=== PATIENT | female | born 1950 | race Caucasian/White ===

== ENCOUNTER 2020-04-17 11:26 | Emergency (ER) | payer MEDICARE, OTHER, SELFPAY ==
--- NOTE | 2020-04-17 | XR_ITS ---
EXAMINATION: XR CHEST CLINICAL INFORMATION: Shortness of breath. COMPARISON: CT chest and chest radiograph dated 10/06/2019 TECHNIQUE: 2 views of the chest were obtained. FINDINGS: No significant abnormality is noted involving the heart, lungs, mediastinum, bony thorax or soft tissues. IMPRESSION: No acute cardiopulmonary process. Interval resolution of previously seen bilateral infiltrates.
[2020-04-17 11:48] VITALS: PULSE 68; RESP 22; O2SAT 97
[2020-04-17 12:00] VITALS: BP 124/73; PULSE 70; RESP 124; TEMP 36.8; O2SAT 95; BMI 35.4
[2020-04-17 12:16] VITALS: O2SAT 95
--- NOTE | 2020-04-17 13:03 | ED.ASTHMA ---
HPI - Asthma General Chief Complaint: Asthma Stated Complaint: asthma Time Seen by Provider: 04/17/20 12:50 Source: patient Mode of arrival: ambulatory History of Present Illness HPI Narrative: 69-year-old female with a PMHx GERD, diabetes, depression, COPD, asthma, anxiety c/o worsening shortness of breath x few weeks. Admits symptoms worse on exertion. Recently finished steroid taper 2 days ago and has been using nebs without relief. Denies cough, CP, LE edema, history of cough, abdominal pain, nausea / vomiting, recent travel, sick contacts MD complaint: asthma attack and shortness of breath Onset (ago): week(s) Severity: moderate Context: exercise Related Data Home Medications Medication Instructions Recorded Confirmed albuterol sulfate INHALATION 04/17/20 buspirone mg PO 04/17/20 cimetidine PO 04/17/20 duloxetine mg PO 04/17/20 fluticasone propionate INTRANASAL 04/17/20 [id number] INHALATION 04/17/20 [Trelegy Ellipta] gabapentin PO 04/17/20 ondansetron HCl PO 04/17/20 tizanidine mg PO 04/17/20 trazodone PO 04/17/20 Allergies Allergy/AdvReac Type Severity Reaction Status Date / Time No Known Allergies Allergy Unverified 03/30/20 16:30 [No Known Allergies*] Review of Systems Review of Systems: Yes all other systems are reviewed and are negative Constitutional: Constitutional: Reports as per HPI, Reports no additional constitutional complaints, Denies chills, Denies fatigue and Denies fever(s) Eyes: Eyes: Reports as per HPI ENT: Reports system reviewed and no additional complaints, except as documented Cardiovascular: Cardiovascular: Reports as per HPI, Denies chest pain, Reports dyspnea and Reports dyspnea on exertion Respiratory: Respiratory: Reports chest congestion, Denies cough, Reports dyspnea, Reports dyspnea on exertion and Reports wheezing Gastrointestinal: Gastrointestinal: Denies abdominal pain, Denies diarrhea, Denies nausea and Denies vomiting Endocrine: Endocrine: Denies fatigue Allergic/Immunologic: Allergic/Immunologic: Reports wheezing PMFSH Past Medical History Attestation statement: The following information was validated with the patient. Medical History Anxiety Asthma COPD (chronic obstructive pulmonary disease) Depression Diabetes mellitus, type 2 GERD (gastroesophageal reflux disease) Social History Social History Smoked in Last 30 Days: No Use of substances other than those prescribed or required for medical reasons: No Advance Directives: No Advance Directives Information Provided: Yes Physical Exam Vital Signs and I&O and Narrative: Vital Signs and I&O: Vital Signs Temp 98.2 F 04/17/20 12:00 Pulse 68 04/17/20 14:52 Resp 9 L 04/17/20 14:52 BP 132/71 04/17/20 14:52 Pulse Ox 97 04/17/20 15:50 Intake & Output 04/16/20 04/17/20 04/17/20 18:59 06:59 18:59 Intake Total 50 / 50 Balance 50 / 50 Weight 92.125 kg Intake: Intake, IV Amoun t 50 / 50 Magnesium Sulf ate/H2O 2 gm In 50 / 50 50 ml @ 50 mls /hr IV ONCE ONE Rx#:[id number] Body Mass Index 35.4 Const: General: cooperative and anxious HENMT: Head: Yes normal to inspection General nose exam: Normal external nose present Neck: Neck: Yes normal visual inspection Chest: Chest palpation & inspection: normal inspection of the chest Resp: Effort & Inspection: normal respiratory effort, able to speak in complete sentences, no audible wheezes, no cough, no respiratory distress and no stridor Auscultation: wheezes (mild) scattered wheezes and breath sounds absent (bibasilarly) Cardio: Jugular venous distension: no JVD Rhythm: regular rhythm Heart sounds: S1 normal heart sound present and S2 normal heart sound present GI: Inspection: Yes normal to inspection Palpation (GI): Soft to palpation and nontender Extrem: Left upper extremity: normal to inspection Course Course Course Narrative: -- labs unremarkable, x-ray with interval resolution of previously seen infiltrates --154-- on re-evaluation patient reports symptomatic improvement. Lungs CTA. Sating 99% on room air --1552-- patient ambulated in the ED with pulse ox maintaining saturations 96% on room air MDM - Asthma MDM Narrative Medical decision making narrative: 69-year-old female with a PMHx GERD, diabetes, depression, COPD, asthma, anxiety c/o worsening shortness of breath x few weeks. On exam VSS, NAD, nontoxic appearing. Anxious. Lungs with mild decreased breath sounds bibasilarly with scattered expiratory wheeze . Concern for asthma / COPD exacerbation vs viral syndrome. Lower concern for pneumonia or PE/ACS or CHF plan: EKG, labs, CXR, DuoNeb, Solu-Medrol, magnesium, reassess Differential Diagnosis Differential diagnosis: Likely Acute exacerbation, Pneumonia and COPD exacerbation Medical Records Attestation: I reviewed the patient's medical records. Lab Data Attestation: I reviewed the patient's lab results. Result diagrams: 04/17/20 13:57 04/17/20 13:57 Labs: Lab Results 04/17/20 04/17/20 04/17/20 Range/Units 13:57 13:57 13:57 WBC 5.1 (4.8-10.8) X10*3/uL RBC 3.54 L (4.20-5.50) X10*6/uL Hgb 11.8 L (12.0-16.0) g/dl Hct 34.2 L (37-47) % MCV 96.6 (80-98) fL MCH 33.3 H (27.0-33.0) pg MCHC 34.5 (31.0-35.0) g/dl RDW 12.3 (11.0-16.0) % Plt Count 158 L (160-400) X10*3/uL MPV 8.7 L (9.4-12.3) fL Immature Gran % (Auto) 0.4 (0.0-0.4) % Neut % (Auto) 42.6 L (45-73) % Lymph % (Auto) 37.3 (20-40) % [place] % (Auto) 10.5 (2-11) % Eos % (Auto) 8.8 H (0-4) % Baso % (Auto) 0.4 (0-2) % Neut # (Auto) 2.2 (2.0-8.3) X10*3/uL Lymph # (Auto) 1.9 (1.2-4.9) X10*3/uL [place] # (Auto) 0.5 (0.1-1.2) X10*3/uL Eos # (Auto) 0.5 H (0.0-0.4) X10*3/uL Baso # (Auto) 0.0 (0.0-0.2) X10*3/uL Abs Immat Gran (auto) 0.02 (0.00-0.03) X10*3/uL Absolute Nucleated RBC 0.000 (0.0-0.012) X10*3/uL Nucleated RBC % (auto) 0.0 (0.0-0.2) /100WBC Sodium 138 (135-145) mmol/L Potassium 4.5 (3.3-5.1) mmol/l Chloride 104 (96-108) mmol/L Carbon Dioxide 24 (22-29) mmol/L Anion Gap 15 (12-20) BUN 18 H (9-16) mg/dL Creatinine 0.78 (0.5-1.4) mg/dL Estim Creat Clear Calc 71.3 Estimated GFR > 60 Random Glucose 120 H (60-115) mg/dL Calcium 9.1 (8.4-10.2) mg/dL Troponin I High Sens < 3.5 (<3.5-17.0) ng/L B-Natriuretic Peptide 24 (<100) pg/mL Discharge Plan Discharge Clinical Impression: Asthma with acute exacerbation Patient Disposition: Home, Self-Care Instructions: Asthma (ED) Additional Instructions: your blood work and chest x-ray were improved today in the ED Prednisone as a steroid, take as prescribed In addition use your nebulizer and albuterol inhaler at home 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 If her symptoms persist/worsen, you develop constant worsening shortness of breath, chest pain, cough, or fever return to the ED Prescriptions: No Action tizanidine 2 mg tablet PO RF: 0 ondansetron HCl 4 mg tablet PO RF: 0 gabapentin 800 mg tablet PO RF: 0 trazodone 100 mg tablet PO RF: 0 cimetidine 200 mg tablet PO RF: 0 albuterol sulfate 90 mcg/actuation HFA aerosol inhaler inhalation RF: 0 fluticasone propionate 50 mcg/actuation spray,suspension intranasal RF: 0 buspirone 15 mg tablet PO RF: 0 duloxetine 60 mg capsule,delayed release(DR/EC) PO RF: 0 Trelegy Ellipta 100-62.5-25 mcg blister with device inhalation RF: 0
[2020-04-17] MEDS: Albuterol/Iprat 2.5/0.5MG 3 ML AMPUL.NEB INHALE (13:44)
[2020-04-17 14:02] LABS: MANUAL DIFF FLAG NO
[2020-04-17] MEDS: methylPREDNISolone Sod Succ/PF 125 MG/2 ML VIAL IVPUSH (14:05)
[2020-04-17] MEDS: Magnesium Sulfate/H2O 2 GM/50 ML PIGGYBACK IV (14:05)
[2020-04-17 14:06] LABS: Basophils Percent Auto 0.4 % (0-2); Eosinophils Absolute Auto 0.5 X10*3/uL (0.0-0.4); Eosinophils Percent Auto 8.8 % (0-4); Hematocrit 34.2 % (37-47); Hemoglobin 11.8 g/dl (12.0-16.0); Imm Gran Abs Auto 0.02 X10*3/uL (0.00-0.03); Imm Gran Pct Auto 0.4 % (0.0-0.4); Lymphocytes Absolute Auto 1.9 X10*3/uL (1.2-4.9); Lymphocytes Percent Auto 37.3 % (20-40); Mean Corpuscular HGB Conc 34.5 g/dl (31.0-35.0); Mean Corpuscular Hemoglobin 33.3 pg (27.0-33.0); Mean Corpuscular Volume 96.6 fL (80-98); Mean Platelet Volume 8.7 fL (9.4-12.3); Monocytes Absolute Auto 0.5 X10*3/uL (0.1-1.2); Monocytes Percent Auto 10.5 % (2-11); Neutrophils Absolute Auto 2.2 X10*3/uL (2.0-8.3); Neutrophils Percent Auto 42.6 % (45-73); Platelet Count 158 X10*3/uL (160-400); Red Blood Count 3.54 X10*6/uL (4.20-5.50); Red Cell Distribution Width 12.3 % (11.0-16.0); White Blood Count 5.1 X10*3/uL (4.8-10.8)
[2020-04-17 14:32] LABS: Anion Gap 15 (12-20); Blood Urea Nitrogen 18 mg/dL (9-16); Calcium 9.1 mg/dL (8.4-10.2); Carbon Dioxide 24 mmol/L (22-29); Chloride 104 mmol/L (96-108); Creatinine Clr Calc Pharmacy 71.3; Estimated Glomerular Filt Rate > 60; Glucose Random 120 mg/dL (60-115); Potassium 4.5 mmol/l (3.3-5.1); Sodium 138 mmol/L (135-145)
[2020-04-17 14:36] LABS: B Type Natriuretic Peptide 24 pg/mL (<100); Troponin-I High Sensitivity < 3.5 ng/L (<3.5-17.0)
[2020-04-17 14:52] VITALS: BP 132/71; PULSE 68; RESP 9; O2SAT 97
[2020-04-17 15:50] VITALS: O2SAT 97
== END 2020-04-17 16:48 | disposition home or self-care (01) ==
PROVIDERS: Physician Assistant; Emergency Provider Internal Medicine; PCP Hospitalist
DX: J45.901 Unspecified asthma with (acute) exacerbation (principal); E11.9 Type 2 diabetes mellitus without complications; F41.1 Generalized anxiety disorder; F43.0 Acute stress reaction; Z79.899 Other long term (current) drug therapy
CPT/HCPCS: 36415; 71046; 80048; 83880; 84484; 85025; 96365; 96375; 99285; J2930; J3475

== ENCOUNTER 2020-04-25 11:27 | Emergency (ER) | payer MEDICARE, OTHER, SELFPAY ==
[2020-04-25 11:31] VITALS: BP 123/64; PULSE 75; RESP 18; TEMP 36.7; O2SAT 98; BMI 35.4
--- NOTE | 2020-04-25 13:16 | XR_ITS ---
EXAMINATION: XR CHEST CLINICAL INFORMATION: Shortness of breath COMPARISON: 04/17/2020 TECHNIQUE: Two views of the chest were obtained. FINDINGS: The cardiomediastinal silhouette is within normal limits. The lungs are well expanded. There is no focal consolidation, edema, or effusion. No pneumothorax. Thoracic spine degeneration. Screw projected over the proximal left humerus. IMPRESSION: No evidence of acute cardiopulmonary process.
--- NOTE | 2020-04-25 14:20 | ED.SOB ---
HPI - SOB/Dyspnea General Chief Complaint: Dyspnea Stated Complaint: sob,asthma Time Seen by Provider: 04/25/20 13:07 Source: patient Mode of arrival: ambulatory Limitations: no limitations History of Present Illness HPI Narrative: 69-year-old female with a past medical history of GERD, diabetes, depression, COPD, asthma, anxiety here with shortness of breath for the last 2 weeks. The patient tells me she was seen here on April 17 for COPD exacerbation and was sent home with a 5 day course of steroids. She tells me she completed this and felt some improvement initially however since then she has been using her albuterol inhaler and nebulizer at home with continued shortness of breath. She tells me feels she feels short of breath with walking around with coughing. No fevers, chills, body aches. No sick contacts. No chest pain, leg pain or swelling. Patient also tells me she she has bed bugs in her apartment and feels like she needs a new place to live. She tells me because the shortness of breath she really can not clean it like she wants to. MD elicited complaint: shortness of breath Pertinent past history: COPD Onset (ago): week(s) Context: recent illness Timing: constant Severity: mild Exacerbating factors: exertion Relieving factors: rest Known history of: COPD Associated symptoms: denies other symptoms Treatment prior to arrival: none Related Data Home Medications Medication Instructions Recorded Confirmed albuterol sulfate INHALATION 04/17/20 buspirone mg PO 04/17/20 cimetidine PO 04/17/20 duloxetine mg PO 04/17/20 fluticasone propionate INTRANASAL 04/17/20 [id number] INHALATION 04/17/20 [Trelegy Ellipta] gabapentin PO 04/17/20 ondansetron HCl PO 04/17/20 tizanidine mg PO 04/17/20 trazodone PO 04/17/20 Previous Rx's Medication Instructions Recorded albuterol sulfate 2 puff INHALATION Q4-6H PRN #6.7 g 04/17/20 prednisone 40 mg PO DAILY #10 tab 04/17/20 prednisone 60 mg PO DAILY 4 Days #12 tab 04/25/20 Allergies Allergy/AdvReac Type Severity Reaction Status Date / Time No Known Allergies Allergy Unverified 03/30/20 16:30 [No Known Allergies*] Review of Systems Review of Systems: Yes all other systems are reviewed and are negative Constitutional: Constitutional: Reports no additional constitutional complaints, Denies body ache(s), Denies chills, Denies fever(s), Denies headache(s) and Denies weakness Eyes: Eyes: Reports no additional eye complaints and Denies change in vision ENT: Reports system reviewed and no additional complaints, except as documented, Denies dizziness, Denies headache(s), Denies nasal congestion, Denies nasal discharge and Denies neck pain Cardiovascular: Cardiovascular: Reports no additional cardiovascular complaints, Denies chest pain, Denies leg edema and Reports dyspnea Respiratory: Respiratory: Reports no additional respiratory complaints, Reports cough and Reports dyspnea Gastrointestinal: Gastrointestinal: Reports no additional gastrointestinal complaints, Denies abdominal pain, Denies diarrhea, Denies nausea and Denies vomiting Genitourinary: Genitourinary: Reports no additional female genitourinary complaints and Denies urinary incontinence Musculoskeletal: Musculoskeletal: Reports no additional musculoskeletal complaints, Denies back pain, Denies arthralgias, Denies joint swelling, Denies neck pain, Denies numbness and Denies tingling Integumentary/Breasts: Skin/Breast: Reports system reviewed and no additional complaints, except as docu and Denies rash Neurologic: Reports system reviewed and no additional complaints, except as documented, Denies Abnormal speech present, Denies dizziness, Denies headache(s), Denies numbness, Denies tingling and Denies weakness PMFSH Past Medical History Attestation statement: The following information was validated with the patient. Source: nursing notes reviewed Medical History Anxiety Asthma COPD (chronic obstructive pulmonary disease) Depression Diabetes mellitus, type 2 GERD (gastroesophageal reflux disease) Social History Social History Alcohol intake: current Alcohol intake frequency: holidays/special occasions only Alcohol type: wine Smoking Status: Light tobacco smoker Smoked in Last 30 Days: Yes Use of substances other than those prescribed or required for medical reasons: No Advance Directives: No Advance Directives Information Provided: Yes Physical Exam Vital Signs: Vital Signs: Vital Signs Temp Pulse Resp BP Pulse Ox 04/25/20 11:31 98.0 F 75 18 123/64 98 Body Mass Index 35.4 Const: General: cooperative, healthy appearing, comfortable and no acute distress Orientation/consciousness: patient oriented x3 Limitations: no limitations HENMT: Head: Yes normal to inspection Ears: hearing grossly normal bilaterally General nose exam: Normal external nose present Face and sinus: Yes normal facial exam Mouth: Normal oral and palatal mucosa present Throat: Yes posterior oropharynx normal Eyes: General: appearance normal, both eyes and all related structures Pupils: Equal, round and reactive pupils present Neck: Neck: Yes normal visual inspection Chest: Chest palpation & inspection: normal inspection of the chest Resp: Other: Mild expiratory wheezing. Speaking full sentences with no apparent distress. Effort & Inspection: normal respiratory effort Auscultation: clear to auscultation bilaterally Cardio: Rate: regular rate Rhythm: regular rhythm Peripheral pulses: Peripheral pulses 2+ throughout GI: Inspection: Yes normal to inspection Palpation (GI): Soft to palpation and nontender Auscultation: normal bowel sounds Back/Spine/Pelvis: Thoracic/Lumbar Spine: thoracic and lumbar spine normal to inspection Skin: General skin exam: no rashes or lesions noted Neuro: General: patient oriented x3, no focal motor deficits and normal sensation to monofilament Cranial nerves: Yes Equal, round and reactive pupils present Cognition (Neuro): normal cognition Speech: No Abnormal speech present Gait exam (Neuro): Normal gait present Motor exam (neuro): 5/5 motor strength present throughout Extrem: General: Yes normal to inspection Course Course Course Narrative: Patient here with cough/shortness of breath x several weeks with recent ED visit and initial improvement after steroid taper. no fever, productive cough, chills or body aches. On exam patient has some mild expiratory wheezing with stable vital signs and in no apparent respiratory distress. Will check x-ray. Give DuoNeb, Solu-Medrol and magnesium. Additionally, the patient is complaining of some social and living concerns. Will involve social work. 1600- chest x-ray unremarkable. Labs unremarkable. Patient feels much improved after receiving medications here. Repeat lung sounds clear throughout with stable saturations greater than 98%. Patient is comfortable going home. Social Work did get involved and will call [facility] to help her in the home. Reviewed worrisome signs and symptoms when to return to the emergency department. Comfortable discharge home. MDM - SOB/Dyspnea MDM Narrative Medical decision making narrative: Considered COPD exacerbation, viral syndrome, pneumonia 1600- Less likely pneumonia with a unremarkable chest x-ray and no leukocytosis. Viral panel negative less likely viral syndrome. Improved with steroids, magnesium and DuoNeb some more likely COPD exacerbation. No hypoxia or significant shortness of breath so patient can be discharged home. Lab Data Attestation: I reviewed the patient's lab results. Result diagrams: 04/25/20 14:30 04/25/20 14:30 Labs: Lab Results 04/25/20 04/25/20 04/25/20 Range/Units 14:28 14:30 14:30 WBC 5.6 (4.8-10.8) X10*3/uL RBC 3.67 L (4.20-5.50) X10*6/uL Hgb 12.0 (12.0-16.0) g/dl Hct 35.6 L (37-47) % MCV 97.0 (80-98) fL MCH 32.7 (27.0-33.0) pg MCHC 33.7 (31.0-35.0) g/dl RDW 12.7 (11.0-16.0) % Plt Count 159 L (160-400) X10*3/uL MPV 8.5 L (9.4-12.3) fL Immature Gran % (Auto) 0.7 H (0.0-0.4) % Neut % (Auto) 43.9 L (45-73) % Lymph % (Auto) 39.4 (20-40) % [place] % (Auto) 8.0 (2-11) % Eos % (Auto) 7.6 H (0-4) % Baso % (Auto) 0.4 (0-2) % Lymph # (Auto) 2.2 (1.2-4.9) X10*3/uL [place] # (Auto) 0.5 (0.1-1.2) X10*3/uL Eos # (Auto) 0.4 (0.0-0.4) X10*3/uL Baso # (Auto) 0.0 (0.0-0.2) X10*3/uL Abs Immat Gran (auto) 0.04 H (0.00-0.03) X10*3/uL Absolute Neuts (auto) 2.5 (2.0-8.3) X10*3/uL Absolute Nucleated RBC 0.000 (0.0-0.012) X10*3/uL Nucleated RBC % (auto) 0.0 (0.0-0.2) /100WBC Hold Blue Top SEE NOTE Sodium (135-145) mmol/L Potassium (3.3-5.1) mmol/l Chloride (96-108) mmol/L Carbon Dioxide (22-29) mmol/L Anion Gap (12-20) BUN (9-16) mg/dL Creatinine (0.5-1.4) mg/dL Estim Creat Clear Calc Estimated GFR Random Glucose (60-115) mg/dL Calcium (8.4-10.2) mg/dL Magnesium (1.6-2.6) mg/dL Troponin I High Sens (<3.5-17.0) ng/L Respiratory Panel [place] See Note Adenovirus (Rapid PCR) Not Detected (Not Detect.) B.pert (TEM-PCR) Not Detected (Not Detect.) B.parapertussis DNA PCR Not Detected (Not Detect.) C. pneumoniae DNA (PCR) Not Detected (Not Detect.) Coronavirus OC43 (PCR) Not Detected (Not Detect.) Coronavirus HKU1 (PCR) Not Detected (Not Detect.) Coronavirus 229E (PCR) Not Detected (Not Detect.) Coronavirus NL63 (PCR) Not Detected (Not Detect.) Human Metapneumovir PCR Not Detected (Not Detect.) Influenza A (RT-PCR) Not Detected (Not Detect.) Influenza B (RT-PCR) Not Detected (Not Detect.) M. pneumoniae (PCR) Not Detected (Not Detect.) Parainfluenza 1 (PCR) Not Detected (Not Detect.) Parainfluenza 2 (PCR) Not Detected (Not Detect.) Parainfluenza 3 (PCR) Not Detected (Not Detect.) Parainfluenza 4 (PCR) Not Detected (Not Detect.) RSV (PCR) Not Detected (Not Detect.) Entero/Rhino (PCR) Not Detected (Not Detect.) SARS-CoV-2 RNA (RT-PCR) Not Detected (Not Detect.) 04/25/20 04/25/20 Range/Units 14:30 14:30 WBC (4.8-10.8) X10*3/uL RBC (4.20-5.50) X10*6/uL Hgb (12.0-16.0) g/dl Hct (37-47) % MCV (80-98) fL MCH (27.0-33.0) pg MCHC (31.0-35.0) g/dl RDW (11.0-16.0) % Plt Count (160-400) X10*3/uL MPV (9.4-12.3) fL Immature Gran % (Auto) (0.0-0.4) % Neut % (Auto) (45-73) % Lymph % (Auto) (20-40) % [place] % (Auto) (2-11) % Eos % (Auto) (0-4) % Baso % (Auto) (0-2) % Lymph # (Auto) (1.2-4.9) X10*3/uL [place] # (Auto) (0.1-1.2) X10*3/uL Eos # (Auto) (0.0-0.4) X10*3/uL Baso # (Auto) (0.0-0.2) X10*3/uL Abs Immat Gran (auto) (0.00-0.03) X10*3/uL Absolute Neuts (auto) (2.0-8.3) X10*3/uL Absolute Nucleated RBC (0.0-0.012) X10*3/uL Nucleated RBC % (auto) (0.0-0.2) /100WBC Hold Blue Top Sodium 138 (135-145) mmol/L Potassium 4.1 (3.3-5.1) mmol/l Chloride 104 (96-108) mmol/L Carbon Dioxide 27 (22-29) mmol/L Anion Gap 11 L (12-20) BUN 11 (9-16) mg/dL Creatinine 0.78 (0.5-1.4) mg/dL Estim Creat Clear Calc 70.7 Estimated GFR > 60 Random Glucose 122 H (60-115) mg/dL Calcium 9.3 (8.4-10.2) mg/dL Magnesium 1.8 (1.6-2.6) mg/dL Troponin I High Sens 3.7 (<3.5-17.0) ng/L Respiratory Panel [place] Adenovirus (Rapid PCR) (Not Detect.) B.pert (TEM-PCR) (Not Detect.) B.parapertussis DNA PCR (Not Detect.) C. pneumoniae DNA (PCR) (Not Detect.) Coronavirus OC43 (PCR) (Not Detect.) Coronavirus HKU1 (PCR) (Not Detect.) Coronavirus 229E (PCR) (Not Detect.) Coronavirus NL63 (PCR) (Not Detect.) Human Metapneumovir PCR (Not Detect.) Influenza A (RT-PCR) (Not Detect.) Influenza B (RT-PCR) (Not Detect.) M. pneumoniae (PCR) (Not Detect.) Parainfluenza 1 (PCR) (Not Detect.) Parainfluenza 2 (PCR) (Not Detect.) Parainfluenza 3 (PCR) (Not Detect.) Parainfluenza 4 (PCR) (Not Detect.) RSV (PCR) (Not Detect.) Entero/Rhino (PCR) (Not Detect.) SARS-CoV-2 RNA (RT-PCR) (Not Detect.) Imaging Data chest xray: Attestation: I personally reviewed and interpreted this imaging study as follows: My impression: unremarkable Radiologist's impression: EXAMINATION: XR CHEST CLINICAL INFORMATION: Shortness of breath COMPARISON: 04/17/2020 TECHNIQUE: Two views of the chest were obtained. FINDINGS: The cardiomediastinal silhouette is within normal limits. The lungs are well expanded. There is no focal consolidation, edema, or effusion. No pneumothorax. Thoracic spine degeneration. Screw projected over the proximal left humerus. IMPRESSION: No evidence of acute cardiopulmonary process. Discharge Plan Discharge Clinical Impression: Asthma with exacerbation Patient Disposition: Home, Self-Care Instructions: Asthma (ED) Additional Instructions: start prednisone tomorrow Continue your asthma medications Prescriptions: New prednisone 20 mg tablet 60 mg PO DAILY 4 Days Qty: 12 RF: 0 No Action tizanidine 2 mg tablet PO RF: 0 ondansetron HCl 4 mg tablet PO RF: 0 gabapentin 800 mg tablet PO RF: 0 trazodone 100 mg tablet PO RF: 0 cimetidine 200 mg tablet PO RF: 0 albuterol sulfate 90 mcg/actuation HFA aerosol inhaler inhalation RF: 0 fluticasone propionate 50 mcg/actuation spray,suspension intranasal RF: 0 buspirone 15 mg tablet PO RF: 0 duloxetine 60 mg capsule,delayed release(DR/EC) PO RF: 0 Trelegy Ellipta 100-62.5-25 mcg blister with device inhalation RF: 0 albuterol sulfate 90 mcg/actuation HFA aerosol inhaler 2 puff inhalation Q4-6H PRN (Reason: shortness of breath or wheezing) Qty: 6.7 RF: 0 prednisone 20 mg tablet 40 mg PO DAILY Qty: 10 RF: 0 Referrals: Lucia Kitchen EXTERIOR INTERIOR SPECIALIST [Primary Care Provider] - 2 days Interventions: ED Discharge Assessment Last Done: 04/25/20 16:13 Discharge Date/Time: 04/25/20 16:22
[2020-04-25 14:34] LABS: MANUAL DIFF FLAG NO
[2020-04-25 14:34] LABS: Adenovirus PCR Not Detected (Not Detect.); Bordetella parapertussis PCR Not Detected (Not Detect.); Bordetella pertussis PCR Not Detected (Not Detect.); Chlamydia pneumoniae PCR Not Detected (Not Detect.); Coronavirus 229E PCR Not Detected (Not Detect.); Coronavirus HKU1 PCR Not Detected (Not Detect.); Coronavirus NL63 PCR Not Detected (Not Detect.); Coronavirus OC43 PCR Not Detected (Not Detect.); Human metapneumovirus PCR Not Detected (Not Detect.); Influenza A PCR Not Detected (Not Detect.); Influenza B PCR Not Detected (Not Detect.); Mycoplasma pneumoniae PCR Not Detected (Not Detect.); Parainfluenza 1 PCR Not Detected (Not Detect.); Parainfluenza 2 PCR Not Detected (Not Detect.); Parainfluenza 3 PCR Not Detected (Not Detect.); Parainfluenza 4 PCR Not Detected (Not Detect.); RSV PCR Not Detected (Not Detect.); Rhino/Enterovirus PCR Not Detected (Not Detect.); SARS-CoV-2 PCR Not Detected (Not Detect.)
[2020-04-25 14:36] LABS: Basophils Percent Auto 0.4 % (0-2); Eosinophils Absolute Auto 0.4 X10*3/uL (0.0-0.4); Eosinophils Percent Auto 7.6 % (0-4); Hematocrit 35.6 % (37-47); Imm Gran Abs Auto 0.04 X10*3/uL (0.00-0.03); Imm Gran Pct Auto 0.7 % (0.0-0.4); Lymphocytes Absolute Auto 2.2 X10*3/uL (1.2-4.9); Lymphocytes Percent Auto 39.4 % (20-40); Mean Corpuscular HGB Conc 33.7 g/dl (31.0-35.0); Mean Corpuscular Hemoglobin 32.7 pg (27.0-33.0); Mean Platelet Volume 8.5 fL (9.4-12.3); Monocytes Absolute Auto 0.5 X10*3/uL (0.1-1.2); Neutrophils Absolute Auto 2.5 X10*3/uL (2.0-8.3); Neutrophils Percent Auto 43.9 % (45-73); Platelet Count 159 X10*3/uL (160-400); Red Blood Count 3.67 X10*6/uL (4.20-5.50); Red Cell Distribution Width 12.7 % (11.0-16.0); White Blood Count 5.6 X10*3/uL (4.8-10.8)
[2020-04-25] MEDS: Magnesium Sulfate/H2O 2 GM/50 ML PIGGYBACK IV (14:49)
[2020-04-25] MEDS: methylPREDNISolone Sod Succ/PF 125 MG/2 ML VIAL IVPUSH (14:49)
[2020-04-25 14:58] LABS: Anion Gap 11 (12-20); Blood Urea Nitrogen 11 mg/dL (9-16); Calcium 9.3 mg/dL (8.4-10.2); Carbon Dioxide 27 mmol/L (22-29); Chloride 104 mmol/L (96-108); Creatinine Clr Calc Pharmacy 70.7; Estimated Glomerular Filt Rate > 60; Glucose Random 122 mg/dL (60-115); Magnesium 1.8 mg/dL (1.6-2.6); Potassium 4.1 mmol/l (3.3-5.1); Sodium 138 mmol/L (135-145)
[2020-04-25 15:03] LABS: Troponin-I High Sensitivity 3.7 ng/L (<3.5-17.0)
[2020-04-25] MEDS: Albuterol/Iprat 2.5/0.5MG 3 ML AMPUL.NEB INHALE (16:06)
--- NOTE | 2022-01-22 09:09 | HE.ONCSEC ---
SITE SURVEYOR CALLED FROM [facility] TO BOOK PATIENT A FOLLOW UP , BECAUSE SHE STATES SHE WAS SEEN BY IN THE ER . SHE SAYS SHE IS GOING TO FAX CLINICAL INFORMATION WELL . I BOOKED PATIENT FOR 02/04/22 @ 1:40PM.
== END 2020-04-25 16:22 | disposition home or self-care (01) ==
PROVIDERS: Nurse Practitioner Family; Emergency Provider Emergency Medicine; PCP Hospitalist
DX: J45.901 Unspecified asthma with (acute) exacerbation (principal); Z20.828 Contact with and (suspected) exposure to other viral communicable diseases; E11.9 Type 2 diabetes mellitus without complications; F41.9 Anxiety disorder, unspecified; Z79.899 Other long term (current) drug therapy
CPT/HCPCS: 36415; 71046; 80048; 83735; 84484; 85025; 87633; 96365; 96366; 96375; 99284; J2930; J3475

== ENCOUNTER 2020-04-26 11:06 | Outpatient (REF) | payer MEDICARE, OTHER, SELFPAY ==
[2020-04-26 14:32] LABS: Erythrocyte Sedimentation Rate 16 MM/HR (0-20)
[2020-04-27 18:32] LABS: IgA 116 mg/dL (70-320); IgG 842 mg/dL (600-1540); IgM 229 mg/dL (50-300)
[2020-04-27 21:56] LABS: Immunoglobulin E 1393 kU/L (<OR=114)
[2020-04-28 11:01] LABS: Cyclic Citrullinated Peptide <16 UNITS
[2020-04-28 12:36] LABS: Myeloperoxidase Antibody <1.0 AI; Proteinase 3 PR3 Antibodies <1.0 AI
[2020-04-28 14:56] LABS: Anti Nuclear Antibody Screen NEGATIVE (NEGATIVE)
[2020-05-01 00:01] LABS: Angiotensin Converting Enzyme 24 U/L (9-67)
== END 2020-04-26 11:07 | disposition home or self-care (01) ==
LOC: HO.LAB 11:06
PROVIDERS: PCP Hospitalist; Visit Provider Hospitalist
DX: J45.51 Severe persistent asthma with (acute) exacerbation (principal); J18.9 Pneumonia, unspecified organism; R06.00 Dyspnea, unspecified
CPT/HCPCS: 36415; 82164; 82784; 82785; 85652; 86021; 86038; 86039; 86200; 99214

== ENCOUNTER 2020-05-07 05:19 | Emergency (ER) | payer MEDICARE, OTHER, SELFPAY ==
--- NOTE | 2020-05-07 | XR_ITS ---
EXAMINATION: XR CHEST CLINICAL INFORMATION: Shortness of breath. COMPARISON: 04/25/2020 TECHNIQUE: Portable upright AP view of the chest was obtained. FINDINGS: Leads overlie the chest. There are increased linear peribronchial opacities in the right lung base as compared to prior. Lung volumes are normal. No pneumothorax or pleural effusion. Cardiac and mediastinal contours are normal. Pulmonary vasculature is unremarkable. Degenerative disc disease present in the thoracic spine. Osteoarthritis is present in the acromioclavicular and glenohumeral joints. A screw is present within the left humeral head. XR/XR chest 1V IMPRESSION: Increased linear lung markings at the right lung base which may correspond to atelectasis or viral/atypical pneumonia.
[2020-05-07 05:29] VITALS: BP 145/77; PULSE 99; RESP 18; TEMP 36.8; O2SAT 99; BMI 25.7
--- NOTE | 2020-05-07 05:33 | PC.NURSE ---
[PT ARRIVES VIA PRIVATE VEHICLE FOR COMPLAINTS OF INCREASING SOB. PT STATES SHE HAS BEEN HERE MULTIPLE TIMES IN PAST WEEK FOR SIMILAR COMPLAINTS. STATES SHE HAS TAKEN TREATMENTS BUT GETS NO RELIEF. PT PLACED ON SENIOR EDITOR. 96% ON RA. BREATHING ANYWHERE FROM 24-33 TIMES A MINUTE. PT SPEAKING 3-5 WORDS PER SENTENCES. RT CALLED, AT BEDSIDE. THIS RN WILL PROTOCOL PATIENT.
[2020-05-07] MEDS: Albuterol/Iprat 2.5/0.5MG 3 ML AMPUL.NEB INHALE (05:46)
[2020-05-07 05:47] LABS: MANUAL DIFF FLAG NO
[2020-05-07 05:48] LABS: Basophils Percent Auto 0.2 % (0-2); Eosinophils Absolute Auto 0.3 X10*3/uL (0.0-0.4); Eosinophils Percent Auto 5.3 % (0-4); Hematocrit 33.6 % (37-47); Hemoglobin 11.7 g/dl (12.0-16.0); Imm Gran Abs Auto 0.02 X10*3/uL (0.00-0.03); Imm Gran Pct Auto 0.3 % (0.0-0.4); Lymphocytes Absolute Auto 2.3 X10*3/uL (1.2-4.9); Lymphocytes Percent Auto 36.7 % (20-40); Mean Corpuscular HGB Conc 34.8 g/dl (31.0-35.0); Mean Corpuscular Hemoglobin 33.6 pg (27.0-33.0); Mean Corpuscular Volume 96.6 fL (80-98); Mean Platelet Volume 8.6 fL (9.4-12.3); Monocytes Absolute Auto 0.5 X10*3/uL (0.1-1.2); Monocytes Percent Auto 8.7 % (2-11); Neutrophils Absolute Auto 3.1 X10*3/uL (2.0-8.3); Neutrophils Percent Auto 48.8 % (45-73); Platelet Count 153 X10*3/uL (160-400); Red Blood Count 3.48 X10*6/uL (4.20-5.50); Red Cell Distribution Width 12.6 % (11.0-16.0); White Blood Count 6.2 X10*3/uL (4.8-10.8)
--- NOTE | 2020-05-07 05:53 | ED_ITS ---
HPI - Asthma General Chief Complaint: Asthma Stated Complaint: asthma Time Seen by Provider: 05/07/20 05:40 History of Present Illness HPI Narrative: Patient is a 69-year-old female presents today with having wheezing. Patient has a history COPD, asthma. Not a smoker. Presented today with having wheezing again. Patient denies any chest pain. No diaphoresis. No bowel urinary incontinence. No abdominal pain. No chest pain. Patient claims is very similar to previous visit earlier in the month. MD complaint: asthma attack Severity: mild Related Data Home Medications Medication Instructions Recorded Confirmed albuterol sulfate INHALATION 04/17/20 04/26/20 buspirone mg PO 04/17/20 04/26/20 cimetidine PO 04/17/20 04/26/20 duloxetine mg PO 04/17/20 04/26/20 fluticasone propionate INTRANASAL 04/17/20 04/26/20 gabapentin PO 04/17/20 04/26/20 ondansetron HCl PO 04/17/20 04/26/20 tizanidine mg PO 04/17/20 04/26/20 trazodone PO 04/17/20 04/26/20 buprenorphine 2 mg-naloxone 0.5 mg SUBLINGUAL 04/26/20 04/26/20 sublingual film cyclobenzaprine 5 mg tablet mg PO 04/26/20 04/26/20 pantoprazole 20 mg tablet,delayed mg PO 04/26/20 04/26/20 release pramipexole 0.125 mg tablet mg PO 04/26/20 04/26/20 varicella-zoster glycoE [id number] IM 04/26/20 04/26/20 adj(PF) 50 mcg/0.5 mL IM susp, kit Previous Rx's Medication Instructions Recorded albuterol sulfate 2 puff INHALATION Q4-6H PRN #6.7 g 04/17/20 prednisone 40 mg PO DAILY #10 tab 04/17/20 prednisone 60 mg PO DAILY 4 Days #12 tab 04/25/20 budesonide 0.5 mg/2 mL suspension 0.5 mg INHALATION BID 30 Days #120 04/26/20 for nebulization ml formoterol fumarate 20 mcg/2 mL 2 ml INHALATION Q12H #120 ml 04/26/20 solution for nebulization doxycycline hyclate 100 mg PO BID #14 cap 05/07/20 prednisone 40 mg PO ONCE #10 tab 05/07/20 Allergies Allergy/AdvReac Type Severity Reaction Status Date / Time No Known Allergies Allergy Verified 05/07/20 05:29 [No Known Allergies*] Review of Systems Review of Systems: Constitutional: No Weight loss, No Fever, No Chills, No Night Sweats, No Fatigue, No Malaise ENT/Mouth: No Hearing loss, No Ear Pain, No Nasal Congestion, No Sinus Pain, No Hoarseness, No sore throat, No Rhinorrhea, No Swallowing Difficulty Eyes: No Eye Pain, No Swelling, No Redness, No Foreign Body, No Discharge, No Vision Changes Cardiovascular: No Chest Pain, No SOB, No Dyspnea on Exertion, No Orthopnea, No Edema, No Palpitations Respiratory: No Cough, No Sputum, Positive Wheezing, No Smoke Exposure, No Dyspnea Gastrointestinal: No Nausea, No Vomiting, No Diarrhea, No Constipation, No abdominal Pain, No Hematochezia, No Melena Genitourinary: no irregular bleeding, No Dysuria, No Urinary Frequency, No Hematuria, No Urinary Incontinence, No Urgency, No Flank Pain, No Urinary Flow Changes, No Hesitancy Musculoskeletal: No joint pain, No Myalgias, No Joint Swelling Skin: No Skin Lesions, No rash Neuro: No Weakness, No Numbness, No Paresthesias, No Loss of Consciousness, No Dizziness, No Headache Psych: No Anxiety/Panic, No Depression, No SI/HI/AH/VH, No Social Issues, Heme/Lymph: No Bruising, No Bleeding,No Lymphadenopathy Endocrine: No Polyuria, No Polydipsia, No Temperature Intolerance [facility] Past Medical History Medical History Anxiety Asthma Asthma exacerbation COPD (chronic obstructive pulmonary disease) Depression Diabetes mellitus, type 2 Dyspnea GERD (gastroesophageal reflux disease) Pneumonitis Social History Social History Alcohol intake: current Alcohol intake frequency: does not drink Alcohol type: wine Smoking Status: Never smoker Use of substances other than those prescribed or required for medical reasons: No Advance Directives: No Advance Directives Information Provided: No Physical Exam Vital Signs: Vital Signs: Vital Signs Temp Pulse Resp BP Pulse Ox 05/07/20 05:29 98.3 F 99 18 145/77 H 99 Body Mass Index 25.7 Appearance: Alert. Oriented X3. No acute distress. Eyes: Pupils equal, round and reactive to light. ENT: Pharynx normal. Neck: Normal inspection. Neck supple. No lymph nodes noted. No crepitus CVS: Normal heart rate and rhythm. Pulses normal. Normal S1 and S2 Respiratory: No respiratory distress. Breath sounds normal. No Wheezing. No rales Abdomen: Soft and nontender. No rigidity. No distention. good BS x4 Skin: Skin warm and dry. Normal skin color. Normal skin turgor. Extremities: No lower extremity edema. Neurovascular intact to all extremities. No Lacerations. No Rash Neuro: Oriented X 3. No motor deficit. No sensory deficit. Moving all extermities. No slurred speech MDM - Asthma MDM Narrative Medical decision making narrative: patient's O2 sat is 99% on room air. Chest x-ray did not show a focal infiltrate. Still have some minimal wheezing. Given 1 neb treatment here. Will Start patient on steroids. Patient will be discharged home close follow-up outpatient basis. Patient's x-ray showed a questionable pneumonia. Will start patient on doxycycline as well. Patient's O2 sats 98% on room air. Small risk of Coronavirus still exist. Differential Diagnosis Differential diagnosis: Likely Acute exacerbation Medical Records Attestation: I reviewed the patient's medical records. Lab Data Result diagrams: 05/07/20 05:43 05/07/20 06:18 Labs: Lab Results 05/07/20 05/07/20 Range/Units 05:43 06:18 WBC 6.2 (4.8-10.8) X10*3/uL RBC 3.48 L (4.20-5.50) X10*6/uL Hgb 11.7 L (12.0-16.0) g/dl Hct 33.6 L (37-47) % MCV 96.6 (80-98) fL MCH 33.6 H (27.0-33.0) pg MCHC 34.8 (31.0-35.0) g/dl RDW 12.6 (11.0-16.0) % Plt Count 153 L (160-400) X10*3/uL MPV 8.6 L (9.4-12.3) fL Immature Gran % (Auto) 0.3 (0.0-0.4) % Neut % (Auto) 48.8 (45-73) % Lymph % (Auto) 36.7 (20-40) % [place] % (Auto) 8.7 (2-11) % Eos % (Auto) 5.3 H (0-4) % Baso % (Auto) 0.2 (0-2) % Lymph # (Auto) 2.3 (1.2-4.9) X10*3/uL [place] # (Auto) 0.5 (0.1-1.2) X10*3/uL Eos # (Auto) 0.3 (0.0-0.4) X10*3/uL Baso # (Auto) 0.0 (0.0-0.2) X10*3/uL Abs Immat Gran (auto) 0.02 (0.00-0.03) X10*3/uL Absolute Neuts (auto) 3.1 (2.0-8.3) X10*3/uL Absolute Nucleated RBC 0.000 (0.0-0.012) X10*3/uL Nucleated RBC % (auto) 0.0 (0.0-0.2) /100WBC Sodium 136 (135-145) mmol/L Potassium 3.9 (3.3-5.1) mmol/l Chloride 103 (96-108) mmol/L Carbon Dioxide 22 (22-29) mmol/L Anion Gap 15 (12-20) BUN 11 (9-16) mg/dL Creatinine 0.79 (0.5-1.4) mg/dL Estim Creat Clear Calc 59.5 Estimated GFR > 60 Random Glucose 165 H D (60-115) mg/dL Calcium 8.8 (8.4-10.2) mg/dL Discharge Plan Discharge Clinical Impression: Asthma exacerbation, Pneumonia Patient Disposition: Home, Self-Care Additional Instructions: risk of Coronavirus still exist. Please make sure you closely follow-up with your physician. Stay home quarantine in till all symptoms has resolved for at least 2 days. Prescriptions: New prednisone 20 mg tablet 40 mg PO ONCE Qty: 10 RF: 0 doxycycline hyclate 100 mg capsule 100 mg PO BID Qty: 14 RF: 0 No Action tizanidine 2 mg tablet PO RF: 0 ondansetron HCl 4 mg tablet PO RF: 0 gabapentin 800 mg tablet PO RF: 0 trazodone 100 mg tablet PO RF: 0 cimetidine 200 mg tablet PO RF: 0 albuterol sulfate 90 mcg/actuation HFA aerosol inhaler inhalation RF: 0 fluticasone propionate 50 mcg/actuation spray,suspension intranasal RF: 0 buspirone 15 mg tablet PO RF: 0 duloxetine 60 mg capsule,delayed release(DR/EC) PO RF: 0 albuterol sulfate 90 mcg/actuation HFA aerosol inhaler 2 puff inhalation Q4-6H PRN (Reason: shortness of breath or wheezing) Qty: 6.7 RF: 0 prednisone 20 mg tablet 40 mg PO DAILY Qty: 10 RF: 0 prednisone 20 mg tablet 60 mg PO DAILY 4 Days Qty: 12 RF: 0 Shingrix (PF) 50 mcg/0.5 mL suspension for reconstitution IM RF: 0 buprenorphine-naloxone 2-0.5 mg film sublingual RF: 0 pramipexole 0.125 mg tablet PO RF: 0 pantoprazole 20 mg tablet,delayed release (DR/EC) PO RF: 0 cyclobenzaprine 5 mg tablet PO RF: 0 Perforomist 20 mcg/2 mL solution for nebulization 2 ml inhalation Q12H Qty: 120 RF: 12 budesonide 0.5 mg/2 mL suspension for nebulization 0.5 mg inhalation BID 30 Days Qty: 120 RF: 0 Referrals: Lucia Kitchen NP [Primary Care Provider] - 2 days
--- NOTE | 2020-05-07 05:55 | PC.NURSE ---
pt recieving updraft at this time
[2020-05-07] MEDS: predniSONE 20 MG TABLET 40 MG PO (06:02)
--- NOTE | 2020-05-07 06:31 | PC.NURSE ---
pt states improvement following breathhing treatment
[2020-05-07 07:09] LABS: Anion Gap 15 (12-20); Blood Urea Nitrogen 11 mg/dL (9-16); Calcium 8.8 mg/dL (8.4-10.2); Carbon Dioxide 22 mmol/L (22-29); Chloride 103 mmol/L (96-108); Creatinine Clr Calc Pharmacy 59.5; Estimated Glomerular Filt Rate > 60; Glucose Random 165 mg/dL (60-115); Potassium 3.9 mmol/l (3.3-5.1); Sodium 136 mmol/L (135-145)
[2020-05-07 07:48] VITALS: BP 162/89; PULSE 82; RESP 18; O2SAT 98
--- NOTE | 2020-05-07 07:51 | PC.NURSE ---
pt resting in the stretcher, pt reports feeling much better after the breathing treatment, ls clear through all bases, respirations even and unlabored, speaking in full sentences, vs stable
== END 2020-05-07 08:04 | disposition home or self-care (01) ==
PROVIDERS: Emergency Provider Emergency Medicine Emergency Medical Services; PCP Hospitalist
DX: J18.9 Pneumonia, unspecified organism (principal); J45.901 Unspecified asthma with (acute) exacerbation; Z79.899 Other long term (current) drug therapy; Z20.828 Contact with and (suspected) exposure to other viral communicable diseases
CPT/HCPCS: 36415; 71045; 80048; 85025; 87635; 99284

== ENCOUNTER 2020-05-08 15:09 | Outpatient (REF) | payer MEDICARE, OTHER, SELFPAY ==
--- NOTE | 2020-05-08 15:14 | CT_ITS ---
EXAMINATION: CT CHEST WITHOUT CONTRAST CLINICAL INFORMATION: Pneumonia. COMPARISON: None. TECHNIQUE: Multidetector volumetric CT imaging of the chest was done. Axial MIP volume rendering provided. Sagittal and coronal reformatted images were obtained. This CT examination was performed using dose optimization techniques as appropriate, variously including the following: *Automated exposure control *Adjustment of mA and/or kV according to patient size (this includes techniques or standardized protocols for targeted exams where dose is matched to indication/reason for exam; i.e. extremities or head) *Use of iterative reconstruction technique DLP: 172 mGy-cm. FINDINGS: UNDERGROUND PRODUCTION FOREPERSON: Well expanded, lungs are clear. LUNGS: The lungs are well expanded and clear of acute pneumonic process. There is a 2 mm nodule right lower lobe axial image 376/7, a 2 mm nodule right upper lobe axial image 216/7, a 4 mm ground-glass nodule right upper lobe axial image 214/7. Minimal atelectatic changes as seen in the lingula. MEDIASTINUM: The thyroid lobes are symmetrical and normal. The central trachea and the bronchi are widely patent. There are 1.3 cm and less pretracheal and paratracheal lymph nodes. Heart size and the great vessels are normal caliber. There is no pericardial effusion seen. PLEURA: There is no pleural effusion. No pleural mass or thickening. AXILLA: No lymphadenopathy. UPPER ABDOMEN: Visualized liver, spleen and pancreas appears unremarkable. OSSEOUS STRUCTURES: No lytic or sclerotic process seen. There is mild ventral spondylosis. CT/CT chest wo con IMPRESSION: No acute process. Scattered 2 to 4 mm pulmonary nodules. Recommend follow-up in one year depending on patient risk factors.
== END 2020-05-08 15:10 | disposition home or self-care (01) ==
LOC: HO.CT 15:09
PROVIDERS: Visit Provider Hospitalist
DX: J18.9 Pneumonia, unspecified organism (principal)
CPT/HCPCS: 71250

== ENCOUNTER → 2020-05-09 14:07 | Outpatient (BNVA) | payer MEDICARE, OTHER, SELFPAY | PROVIDERS: PCP Hospitalist; Referring Provider Hospitalist; Visit Provider Hospitalist | DX: J18.9 Pneumonia, unspecified organism (principal); J44.9 Chronic obstructive pulmonary disease, unspecified; J45.51 Severe persistent asthma with (acute) exacerbation; Z79.899 Other long term (current) drug therapy | CPT/HCPCS: 99212 ==

== ENCOUNTER → 2020-05-26 13:04 | Outpatient (BNVA) | payer MEDICARE, MEDICAID, OTHER, SELFPAY | PROVIDERS: PCP Hospitalist; Referring Provider Hospitalist; Visit Provider Hospitalist | DX: J45.51 Severe persistent asthma with (acute) exacerbation (principal); J18.9 Pneumonia, unspecified organism; J44.9 Chronic obstructive pulmonary disease, unspecified; Z79.52 Long term (current) use of systemic steroids | CPT/HCPCS: 99212 ==

== ENCOUNTER 2020-06-06 12:56 | Outpatient (REF) | payer MEDICARE, MEDICAID, OTHER, SELFPAY | END 2020-06-06 12:57 | disposition home or self-care (01) | LOC: HO.MDS 12:56 | PROVIDERS: PCP Hospitalist; Visit Provider Hospitalist | DX: J45.50 Severe persistent asthma, uncomplicated (principal) | CPT/HCPCS: 96372; J2182 ==

== ENCOUNTER → 2020-06-27 13:39 | Outpatient (BNVA) | payer OTHER, SELFPAY | PROVIDERS: PCP Internal Medicine Rheumatology; Visit Provider Hospitalist | DX: J40 Bronchitis, not specified as acute or chronic (principal); J18.9 Pneumonia, unspecified organism; K21.9 Gastro-esophageal reflux disease without esophagitis; Z79.899 Other long term (current) drug therapy | CPT/HCPCS: 99212 ==

== ENCOUNTER 2020-07-04 13:42 | Outpatient (REF) | payer OTHER, SELFPAY | END 2020-07-04 13:43 | disposition home or self-care (01) | LOC: HO.MDS 13:42 | PROVIDERS: Visit Provider Hospitalist | DX: J45.50 Severe persistent asthma, uncomplicated (principal) | CPT/HCPCS: 96372; J2182 ==

== ENCOUNTER 2020-07-12 14:30 | Emergency (ER) | payer OTHER, SELFPAY ==
[2020-07-12 14:39] VITALS: BP 107/62; BP 108/62; PULSE 106; PULSE 83; RESP 15; TEMP 37.6; O2SAT 94; O2SAT 96; BMI 38.8
--- NOTE | 2020-07-12 15:07 | ECG_ITS ---
Test Reason : SHORTNESS OFBREATH Blood Pressure : / mmHG Vent. Rate : 074 BPM Atrial Rate : 074 BPM P-R Int : 132 ms QRS Dur : 084 ms QT Int : 398 ms P-R-T Axes : 016 014 022 degrees QTc Int : 441 ms Normal sinus rhythm Normal ECG When compared with ECG of 06-OCT-2019 22:12, No significant change was found Referred By: Tere North Electronically Signed By:MARILU JONAS
--- NOTE | 2020-07-12 15:07 | XR_ITS ---
EXAMINATION: XR CHEST CLINICAL INFORMATION: Shortness of breath. COMPARISON: 05/07/2020 chest radiograph. TECHNIQUE: Frontal view of the chest was obtained. FINDINGS: No significant abnormality is noted involving the heart, lungs, mediastinum, bony thorax or soft tissues. XR/XR chest 1V IMPRESSION: No acute cardiopulmonary process.
--- NOTE | 2020-07-12 15:27 | ED.SOB ---
HPI - SOB/Dyspnea General Chief Complaint: Dyspnea Stated Complaint: cough, fever, sob Time Seen by Provider: 07/12/20 15:07 History of Present Illness HPI Narrative: Patient is a 69-year-old female with a history of asthma. Presented today to the emergency department for increasing shortness of breath. History of the same been evaluated in the emergency department multiple times. Patient was previously given steroids and then subsequently tapered. Presents today again having some low-grade fever positive coughing. Positive generalized malaise. Patient claims his symptom has started since she moved to her new apartment a few months ago. She has been followed by a business computers teacher Dr. Melgar here at [facility]. Patient is unsure she started on the biologic treatment. Patient denies any exposure to coronavirus. Related Data Home Medications Medication Instructions Recorded Confirmed buspirone mg PO 04/17/20 06/27/20 cimetidine PO 04/17/20 06/27/20 duloxetine mg PO 04/17/20 06/27/20 gabapentin PO 04/17/20 06/27/20 ondansetron HCl PO 04/17/20 06/27/20 buprenorphine 2 mg-naloxone 0.5 mg SUBLINGUAL 04/26/20 06/27/20 sublingual film cyclobenzaprine 5 mg tablet mg PO 04/26/20 06/27/20 pantoprazole 20 mg tablet,delayed mg PO 04/26/20 06/27/20 release pramipexole 0.125 mg tablet mg PO 04/26/20 06/27/20 varicella-zoster glycoE [id number] IM 04/26/20 05/26/20 adj(PF) 50 mcg/0.5 mL IM susp, kit Previous Rx's Medication Instructions Recorded albuterol sulfate 2 puff INHALATION Q4-6H PRN #6.7 g 04/17/20 formoterol fumarate 20 mcg/2 mL 2 ml INHALATION Q12H #120 ml 04/26/20 solution for nebulization doxycycline hyclate 100 mg PO BID #14 cap 05/07/20 prednisone 40 mg PO ONCE #10 tab 05/07/20 tizanidine 2 mg tablet 2 mg PO Q8H PRN 30 Days #60 tab 05/09/20 trazodone 100 mg tablet 100 mg PO .COMPLEX 30 Days #30 tab 05/09/20 budesonide 0.5 mg/2 mL suspension 0.5 mg INHALATION BID #120 ml 05/19/20 for nebulization fluticasone propionate 50 1 spray INTRANASAL DAILY #15.8 ml 06/07/20 mcg/actuation nasal spray,suspension mepolizumab 100 mg/mL subcutaneous 100 mg SUBCUT Q4W 30 Days #2 ml 06/20/20 syringe azithromycin 500 mg tablet 500 mg PO DAILY 3 Days #3 tab 06/27/20 umeclidinium 62.5 mcg/actuation 1 inh INHALATION DAILY 30 Days #30 06/27/20 blister powder for inhalation ea Allergies Allergy/AdvReac Type Severity Reaction Status Date / Time No Known Allergies Allergy Verified 06/27/20 14:22 [No Known Allergies*] Review of Systems Review of Systems: Constitutional: No Weight loss, No Fever, No Chills, No Night Sweats, No Fatigue, No Malaise ENT/Mouth: No Hearing loss, No Ear Pain, No Nasal Congestion, No Sinus Pain, No Hoarseness, No sore throat, No Rhinorrhea, No Swallowing Difficulty Eyes: No Eye Pain, No Swelling, No Redness, No Foreign Body, No Discharge, No Vision Changes Cardiovascular: No Chest Pain, positive SOB, positive Dyspnea on Exertion, No Orthopnea, No Edema, No Palpitations Respiratory: No Cough, No Sputum, No Wheezing, No Smoke Exposure, No Dyspnea Gastrointestinal: No Nausea, No Vomiting, No Diarrhea, No Constipation, No abdominal Pain, No Hematochezia, No Melena Genitourinary: no irregular bleeding, No Dysuria, No Urinary Frequency, No Hematuria, No Urinary Incontinence, No Urgency, No Flank Pain, No Urinary Flow Changes, No Hesitancy Musculoskeletal: No joint pain, No Myalgias, No Joint Swelling Skin: No Skin Lesions, No rash Neuro: No Weakness, No Numbness, No Paresthesias, No Loss of Consciousness, No Dizziness, No Headache Psych: No Anxiety/Panic, No Depression, No SI/HI/AH/VH, No Social Issues, Heme/Lymph: No Bruising, No Bleeding,No Lymphadenopathy Endocrine: No Polyuria, No Polydipsia, No Temperature Intolerance PMFSH Past Medical History Medical History Anxiety Asthma Asthma exacerbation COPD (chronic obstructive pulmonary disease) Depression Diabetes mellitus, type 2 Dyspnea GERD (gastroesophageal reflux disease) Pneumonitis Surgical History History of section History of shoulder surgery Family History Family History Father Cancer Mother No problems noted. Social History Social History Alcohol intake: current Alcohol intake frequency: does not drink Alcohol type: wine Smoking Status: Never smoker Advance Directives: No Advance Directives Information Provided: No Physical Exam Vital Signs: Vital Signs: Last Vital Signs Temp 99.6 F 07/12/20 14:39 Pulse 83 07/12/20 14:39 Resp 15 07/12/20 14:39 BP 108/62 07/12/20 14:39 Pulse Ox 94 07/12/20 14:39 Body Mass Index 38.8 Appearance: Alert. Oriented X3. No acute distress. Eyes: Pupils equal, round and reactive to light. ENT: Pharynx normal. Neck: Normal inspection. Neck supple. No lymph nodes noted. No crepitus CVS: Normal heart rate and rhythm. Pulses normal. Normal S1 and S2 Respiratory: Diminished breath sounds and wheezing bilaterally. Abdomen: Soft and nontender. No rigidity. No distention. good BS x4 Skin: Skin warm and dry. Normal skin color. Normal skin turgor. Extremities: No lower extremity edema. Neurovascular intact to all extremities. No Lacerations. No Rash Neuro: Oriented X 3. No motor deficit. No sensory deficit. Moving all extermities. No slurred speech MDM - SOB/Dyspnea MDM Narrative Medical decision making narrative: Patient has positive wheezing positive generalized malaise shortness of breath similar to previous bouts. Labs are pending. Chest x-ray did not show any focal infiltrate. Coronavirus test is pending. Symptom is very similar to previous. Patient's case discussed with Pulmonary Dr. Melgar. If patient's labs are negative. Ambulate well and keeps her sat. She can most likely be discharged home with close follow-up tomorrow at his office. Currently awaiting labs and results of additional treatment and steroids. Case is being signed out at the change of shift Discharge Plan Discharge Clinical Impression: Asthma, COPD (chronic obstructive pulmonary disease) Prescriptions: No Action budesonide 0.5 mg/2 mL suspension for nebulization 0.5 mg inhalation BID Qty: 120 RF: 3 fluticasone propionate 50 mcg/actuation spray,suspension 1 spray intranasal DAILY Qty: 15.8 RF: 2 Nucala 100 mg/mL syringe 100 mg subcut Q4W 30 Days Qty: 2 RF: 11 azithromycin 500 mg tablet 500 mg PO DAILY 3 Days Qty: 3 RF: 0 Incruse Ellipta 62.5 mcg/actuation blister with device 1 inh inhalation DAILY 30 Days Qty: 30 RF: 11 prednisone 20 mg tablet 40 mg PO ONCE Qty: 10 RF: 0 doxycycline hyclate 100 mg capsule 100 mg PO BID Qty: 14 RF: 0 ondansetron HCl 4 mg tablet PO RF: 0 gabapentin 800 mg tablet PO RF: 0 cimetidine 200 mg tablet PO RF: 0 buspirone 15 mg tablet PO RF: 0 duloxetine 60 mg capsule,delayed release(DR/EC) PO RF: 0 albuterol sulfate 90 mcg/actuation HFA aerosol inhaler 2 puff inhalation Q4-6H PRN (Reason: shortness of breath or wheezing) Qty: 6.7 RF: 0 tizanidine 2 mg tablet 2 mg PO Q8H PRN (Reason: muscle spasticity) 30 Days Qty: 60 RF: 7 trazodone 100 mg tablet 100 mg PO .COMPLEX 30 Days Qty: 30 RF: 6 Shingrix (PF) 50 mcg/0.5 mL suspension for reconstitution IM RF: 0 buprenorphine-naloxone 2-0.5 mg film sublingual RF: 0 pramipexole 0.125 mg tablet PO RF: 0 pantoprazole 20 mg tablet,delayed release (DR/EC) PO RF: 0 cyclobenzaprine 5 mg tablet PO RF: 0 Perforomist 20 mcg/2 mL solution for nebulization 2 ml inhalation Q12H Qty: 120 RF: 12
[2020-07-12 16:33] LABS: MANUAL DIFF FLAG NO
[2020-07-12] MEDS: 0.9 % Sodium Chloride 1,000 ML 999 ML IV (16:35)
[2020-07-12 16:50] LABS: Basophils Percent Auto 0.2 % (0-2); Eosinophils Percent Auto 0.3 % (0-4); Hematocrit 33.6 % (37-47); Hemoglobin 11.7 g/dl (12.0-16.0); Imm Gran Abs Auto 0.01 X10*3/uL (0.00-0.03); Imm Gran Pct Auto 0.2 % (0.0-0.4); Lymphocytes Absolute Auto 1.6 X10*3/uL (1.2-4.9); Mean Corpuscular HGB Conc 34.8 g/dl (31.0-35.0); Mean Corpuscular Hemoglobin 33.1 pg (27.0-33.0); Mean Corpuscular Volume 95.2 fL (80-98); Mean Platelet Volume 8.9 fL (9.4-12.3); Monocytes Absolute Auto 0.7 X10*3/uL (0.1-1.2); Monocytes Percent Auto 11.6 % (2-11); Neutrophils Absolute Auto 3.9 X10*3/uL (2.0-8.3); Neutrophils Percent Auto 61.7 % (45-73); Platelet Count 141 X10*3/uL (160-400); Red Blood Count 3.53 X10*6/uL (4.20-5.50); Red Cell Distribution Width 12.3 % (11.0-16.0); White Blood Count 6.3 X10*3/uL (4.8-10.8)
[2020-07-12 17:07] LABS: Lactic Acid 0.8 mmol/L (0.5-2.0)
[2020-07-12 17:09] LABS: Anion Gap 13 (12-20); Blood Urea Nitrogen 15 mg/dL (9-16); Calcium 9.1 mg/dL (8.4-10.2); Carbon Dioxide 29 mmol/L (22-29); Chloride 102 mmol/L (96-108); Creatinine Clr Calc Pharmacy 56.3; Estimated Glomerular Filt Rate 53; Glucose Random 111 mg/dL (60-115); Potassium 4.6 mmol/l (3.3-5.1); Sodium 139 mmol/L (135-145)
[2020-07-12 17:15] LABS: Influenza A PCR NEGATIVE (Negative); Influenza B PCR NEGATIVE (Negative); Resp Syncy Virus RNA Qual PCR NEGATIVE (Negative); SARS COV2 PCR INHOUSE NEGATIVE (Negative)
[2020-07-12 18:08] LABS: B Type Natriuretic Peptide 79 pg/mL (<100); Troponin-I High Sensitivity 3.8 ng/L (<3.5-17.0)
[2020-07-12 18:15] VITALS: BP 98/65; PULSE 78; RESP 19; TEMP 37.1; O2SAT 93
[2020-07-12 18:17] LABS: Appearance Urine CLEAR; Color Urine DARK YELLOW; Glucose Urine UA NEG (NEG); Leukocyte Esterase Urine NEG (NEG); Nitrite Urine NEG (NEG); Urine Blood NEG (NEG); Urine Ketones NEG (NEG); Urine Protein TRACE MG/DL (NEG-TRACE)
== END 2020-07-12 22:28 | disposition home or self-care (01) ==
PROVIDERS: Emergency Provider Emergency Medicine Emergency Medical Services
DX: J44.9 Chronic obstructive pulmonary disease, unspecified (principal); Z20.828 Contact with and (suspected) exposure to other viral communicable diseases; E11.9 Type 2 diabetes mellitus without complications; Z79.899 Other long term (current) drug therapy
CPT/HCPCS: 0241U; 36415; 71045; 80048; 81003; 83605; 83880; 84484; 85025; 87040; 93005; 96361; 96374; 99284; J2930

== ENCOUNTER 2020-08-01 12:56 | Outpatient (REF) | payer OTHER, SELFPAY | END 2020-08-01 12:57 | disposition home or self-care (01) | LOC: HO.MDS 12:56 | PROVIDERS: Visit Provider Hospitalist | DX: J45.50 Severe persistent asthma, uncomplicated (principal) | CPT/HCPCS: 96372; J2182 ==

== ENCOUNTER → 2020-08-03 13:31 | Outpatient (BNVA) | payer OTHER, SELFPAY | PROVIDERS: PCP Internal Medicine Rheumatology; Visit Provider Hospitalist | DX: J45.909 Unspecified asthma, uncomplicated (principal) ==

== ENCOUNTER 2020-08-31 13:01 | Outpatient (REF) | payer OTHER, SELFPAY | END 2020-08-31 13:02 | disposition home or self-care (01) | LOC: HO.MDS 13:01 | PROVIDERS: Visit Provider Hospitalist | DX: J45.50 Severe persistent asthma, uncomplicated (principal) | CPT/HCPCS: J2182 ==

== ENCOUNTER 2020-09-28 16:03 | Outpatient (REF) | payer OTHER, SELFPAY | END 2020-09-28 16:04 | disposition home or self-care (01) | LOC: HO.MDS 16:03 | PROVIDERS: Visit Provider Hospitalist | DX: J45.50 Severe persistent asthma, uncomplicated (principal) | CPT/HCPCS: 96372; J2182 ==

== ENCOUNTER 2020-11-02 12:03 | Outpatient (REF) | payer OTHER, SELFPAY | END 2020-11-02 12:04 | disposition home or self-care (01) | LOC: HO.MDS 12:03 | PROVIDERS: Visit Provider Hospitalist | DX: J45.50 Severe persistent asthma, uncomplicated (principal) | CPT/HCPCS: 96372; J2182 ==

== ENCOUNTER 2020-11-04 03:40 | Emergency (ER) | payer OTHER, SELFPAY ==
[2020-11-04 03:51] VITALS: BP 134/82; PULSE 99; RESP 18; TEMP 36.6; O2SAT 95; BMI 39.0
--- NOTE | 2020-11-04 04:18 | PC.NURSE ---
PT TO ROOM WITH C/O NOSE BLEED WHICH STARTED THIS MORNING AROUND 0700. PT DENIES COMPLAINTS. PT UNABLE TO STOP NOSE FROM BLEEDING. PT EDUCATED ON NOT TO BLOW HER NOSE. PT ARRIVES ALERT, RESPIRATIONS EASY, N/L. SKIN W/D. WILL CONTINUE TO MONITOR PT.
[2020-11-04 04:49] LABS: Basophils Percent Auto 0.2 % (0-2); Eosinophils Percent Auto 0.7 % (0-4); Hematocrit 32.9 % (37-47); Hemoglobin 11.2 g/dl (12.0-16.0); Lymphocytes Absolute Auto 1.7 X10*3/uL (1.2-4.9); Lymphocytes Percent Auto 39.3 % (20-40); MANUAL DIFF FLAG NO; Mean Corpuscular Hemoglobin 31.8 pg (27.0-33.0); Mean Corpuscular Volume 93.5 fL (80-98); Mean Platelet Volume 8.5 fL (9.4-12.3); Monocytes Absolute Auto 0.4 X10*3/uL (0.1-1.2); Monocytes Percent Auto 10.1 % (2-11); Neutrophils Absolute Auto 2.1 X10*3/uL (2.0-8.3); Neutrophils Percent Auto 49.7 % (45-73); Platelet Count 153 X10*3/uL (160-400); Red Blood Count 3.52 X10*6/uL (4.20-5.50); Red Cell Distribution Width 12.8 % (11.0-16.0); White Blood Count 4.3 X10*3/uL (4.8-10.8)
[2020-11-04 04:56] LABS: Prothrombin Time 12.1 SEC (10.8-13.0)
[2020-11-04 04:58] LABS: Partial Thromboplastin Time 36.5 SEC (24.1-38.0)
--- NOTE | 2020-11-04 05:09 | ED_ITS ---
History of Present Illness General Chief Complaint: Epistaxis Stated Complaint: NOSE BLEED Time Seen by Provider: 11/04/20 05:09 Source: patient Mode of arrival: ambulatory History of Present Illness HPI Narrative: This is a 70-year-old female who presents with nose bleeding which started around 7:00 a.m. in the morning and has been intermittent. Patient states she has continued to blow her nose to try to clear it and that has continued to bleed. Patient denies any difficulty breathing or difficulty swallowing at this time. She denies any use of anticoagulation and denies any history of irregular heartbeat. She does endorse that she has been struggling with a dry nose. Related Data Home Medications Medication Instructions Recorded Confirmed buspirone mg PO 04/17/20 08/03/20 cimetidine PO 04/17/20 08/03/20 duloxetine mg PO 04/17/20 08/03/20 gabapentin PO 04/17/20 08/03/20 ondansetron HCl PO 04/17/20 08/03/20 buprenorphine 2 mg-naloxone 0.5 mg SUBLINGUAL 04/26/20 08/03/20 sublingual film cyclobenzaprine 5 mg tablet mg PO 04/26/20 08/03/20 pramipexole 0.125 mg tablet mg PO 04/26/20 08/03/20 varicella-zoster glycoE [id number] IM 04/26/20 08/03/20 adj(PF) 50 mcg/0.5 mL IM susp, kit Previous Rx's Medication Instructions Recorded albuterol sulfate 2 puff INHALATION Q4-6H PRN #6.7 g 04/17/20 formoterol fumarate 20 mcg/2 mL 2 ml INHALATION Q12H #120 ml 04/26/20 solution for nebulization doxycycline hyclate 100 mg PO BID #14 cap 05/07/20 prednisone 40 mg PO ONCE #10 tab 05/07/20 trazodone 100 mg tablet 100 mg PO .COMPLEX 30 Days #30 tab 05/09/20 budesonide 0.5 mg/2 mL suspension 0.5 mg INHALATION BID #120 ml 05/19/20 for nebulization fluticasone propionate 50 1 spray INTRANASAL DAILY #15.8 ml 06/07/20 mcg/actuation nasal spray,suspension mepolizumab 100 mg/mL subcutaneous 100 mg SUBCUT Q4W 30 Days #2 ml 06/20/20 syringe azithromycin 500 mg tablet 500 mg PO DAILY 3 Days #3 tab 06/27/20 umeclidinium 62.5 mcg/actuation 1 inh INHALATION DAILY 30 Days #30 06/27/20 blister powder for inhalation ea cefuroxime axetil 500 mg PO BID 7 Days #14 tab 07/12/20 prednisone 40 mg PO DAILY 5 Days #10 tab 07/12/20 pantoprazole 20 mg tablet,delayed 20 mg PO DAILY 30 Days #30 tab 07/19/20 release tizanidine 2 mg tablet 2 mg PO Q8H PRN 30 Days #60 tab 08/01/20 albuterol sulfate 2.5 mg INHALATION Q6H PRN 30 Days 08/03/20 #240 ml montelukast 10 mg tablet 10 mg PO BEDTIME 30 Days #30 tab 08/03/20 Allergies Allergy/AdvReac Type Severity Reaction Status Date / Time No Known Allergies Allergy Verified 08/03/20 13:56 [No Known Allergies*] Review of Systems Review of Systems: Pertinent positives and negatives as stated in HPI 10 point review of systems is otherwise negative. [facility] Past Medical History Source: nursing notes reviewed Medical History Anxiety Asthma Asthma exacerbation COPD (chronic obstructive pulmonary disease) Depression Diabetes mellitus, type 2 Dyspnea GERD (gastroesophageal reflux disease) Pneumonitis Surgical History History of section History of shoulder surgery Family History Family History Father Cancer Mother No problems noted. Social History Social History Alcohol intake: current Alcohol intake frequency: does not drink Alcohol type: wine Smoking Status: Never smoker Advance Directives: No Advance Directives Information Provided: No Physical Exam Vital Signs: Vital Signs: Last Vital Signs Temp 98 F 11/04/20 03:51 Pulse 99 11/04/20 03:51 Resp 18 11/04/20 03:51 BP 134/82 11/04/20 03:51 Pulse Ox 95 11/04/20 03:51 Body Mass Index 39.0 VITAL SIGNS: Reviewed. GENERAL: Well developed, well nourished, in no acute distress. HEAD: Normocephalic/atraumatic EYES: PERRLA, EOMI NOSE: Stigmata of bleeding with noted clot to the right nare, left nare with o bvious septal deviation (old injury as per patient) OROPHARYNX: no oral lesions noted, posterior pharynx clear, and stigmata of dry blood on the posterior pharynx and tongue NECK: Supple, no adenopathy LUNGS: Normal breath sounds. No adventitious sounds or accessory muscle use. SpO2<95> CARDIOVASCULAR: Regular rate and rhythm without noted murmurs ABDOMEN: Soft, non-tender, non-distended with bowel sounds. NEUROLOGIC: Alert and oriented x 4. Course Course Course Narrative: 70-year-old female with history and clinical presentation consistent with a traumatic epistaxis unrelated to the use of antiplatelets/anti coagulants who presents with dry nose. Afrin was applied with good results and patient was discharged in stable condition with instructions to follow-up with her primary care provider. MDM - Epistaxis Lab Data Result diagrams: 11/04/20 04:39 11/04/20 04:39 Labs: Lab Results 11/04/20 11/04/20 11/04/20 Range/Units 04:39 04:39 04:39 WBC 4.3 L (4.8-10.8) X10*3/uL RBC 3.52 L (4.20-5.50) X10*6/uL Hgb 11.2 L (12.0-16.0) g/dl Hct 32.9 L (37-47) % MCV 93.5 (80-98) fL MCH 31.8 (27.0-33.0) pg MCHC 34.0 (31.0-35.0) g/dl RDW 12.8 (11.0-16.0) % Plt Count 153 L (160-400) X10*3/uL MPV 8.5 L (9.4-12.3) fL Immature Gran % (Auto) 0.0 (0.0-0.4) % Neut % (Auto) 49.7 (45-73) % Lymph % (Auto) 39.3 (20-40) % [place] % (Auto) 10.1 (2-11) % Eos % (Auto) 0.7 (0-4) % Baso % (Auto) 0.2 (0-2) % Lymph # (Auto) 1.7 (1.2-4.9) X10*3/uL [place] # (Auto) 0.4 (0.1-1.2) X10*3/uL Eos # (Auto) 0.0 (0.0-0.4) X10*3/uL Baso # (Auto) 0.0 (0.0-0.2) X10*3/uL Abs Immat Gran (auto) 0.00 (0.00-0.03) X10*3/uL Absolute Neuts (auto) 2.1 (2.0-8.3) X10*3/uL Absolute Nucleated RBC 0.000 (0.0-0.012) X10*3/uL Nucleated RBC % (auto) 0.0 (0.0-0.2) /100WBC PT 12.1 (10.8-13.0) SEC INR 1.0 (0.9-1.1) APTT 36.5 (24.1-38.0) SEC Sodium 140 (135-145) mmol/L Potassium 4.0 (3.3-5.1) mmol/L Chloride 101 (96-108) mmol/L Carbon Dioxide 29 (22-29) mmol/L Anion Gap 14 (12-20) BUN 22 H (9-16) mg/dL Creatinine 0.83 (0.5-1.4) mg/dL Estim Creat Clear Calc 69.0 Estimated GFR > 60 Random Glucose 165 H D (60-115) mg/dL Calcium 9.6 (8.4-10.2) mg/dL Discharge Plan Discharge Clinical Impression: Epistaxis Patient Disposition: Home, Self-Care Instructions: Nosebleed (ED), Oxymetazoline (Into the nose) Additional Instructions: 1. Resume all of your home medications. 2. If your nose bleed starts again apply pressure for 5 minutes, if it does not stop you may apply 2 squirts of Afrin into the nostril and reapply pressure to your nose for 5 minutes. 3. Do not blow your nose, insert any tissue or finger into your nose. 4. Recommend using rasx-rra-uwgfoci saline spray to provide moisture to the nostril tissue. Please feel free to return to the emergency department should you have any further concerns regarding your nose bleed. Prescriptions: No Action budesonide 0.5 mg/2 mL suspension for nebulization 0.5 mg inhalation BID Qty: 120 RF: 3 fluticasone propionate 50 mcg/actuation spray,suspension 1 spray intranasal DAILY Qty: 15.8 RF: 2 Nucala 100 mg/mL syringe 100 mg subcut Q4W 30 Days Qty: 2 RF: 11 azithromycin 500 mg tablet 500 mg PO DAILY 3 Days Qty: 3 RF: 0 Incruse Ellipta 62.5 mcg/actuation blister with device 1 inh inhalation DAILY 30 Days Qty: 30 RF: 11 pantoprazole 20 mg tablet,delayed release (DR/EC) 20 mg PO DAILY 30 Days Qty: 30 RF: 6 tizanidine 2 mg tablet 2 mg PO Q8H PRN (Reason: muscle spasticity) 30 Days Qty: 60 RF: 3 prednisone 20 mg tablet 40 mg PO ONCE Qty: 10 RF: 0 doxycycline hyclate 100 mg capsule 100 mg PO BID Qty: 14 RF: 0 prednisone 20 mg tablet 40 mg PO DAILY 5 Days Qty: 10 RF: 0 cefuroxime axetil 500 mg tablet 500 mg PO BID 7 Days Qty: 14 RF: 0 ondansetron HCl 4 mg tablet PO RF: 0 gabapentin 800 mg tablet PO RF: 0 cimetidine 200 mg tablet PO RF: 0 buspirone 15 mg tablet PO RF: 0 duloxetine 60 mg capsule,delayed release(DR/EC) PO RF: 0 albuterol sulfate 90 mcg/actuation HFA aerosol inhaler 2 puff inhalation Q4-6H PRN (Reason: shortness of breath or wheezing) Qty: 6.7 RF: 0 trazodone 100 mg tablet 100 mg PO .COMPLEX 30 Days Qty: 30 RF: 6 montelukast [Singulair] 10 mg tablet 10 mg PO BEDTIME 30 Days Qty: 30 RF: 11 albuterol sulfate 2.5 mg /3 mL (0.083 %) solution for nebulization 2.5 mg inhalation Q6H PRN (Reason: shortness of breath or wheezing) 30 Days Qty: 240 RF: 11 Shingrix (PF) 50 mcg/0.5 mL suspension for reconstitution IM RF: 0 buprenorphine-naloxone 2-0.5 mg film sublingual RF: 0 pramipexole 0.125 mg tablet PO RF: 0 cyclobenzaprine 5 mg tablet PO RF: 0 Perforomist 20 mcg/2 mL solution for nebulization 2 ml inhalation Q12H Qty: 120 RF: 12 Referrals: Tray Miles MD [Primary Care Provider] - 2 days
[2020-11-04 05:13] LABS: Anion Gap 14 (12-20); Blood Urea Nitrogen 22 mg/dL (9-16); Calcium 9.6 mg/dL (8.4-10.2); Carbon Dioxide 29 mmol/L (22-29); Chloride 101 mmol/L (96-108); Estimated Glomerular Filt Rate > 60; Glucose Random 165 mg/dL (60-115); Sodium 140 mmol/L (135-145)
[2020-11-04] MEDS: Oxymetazoline HCl 0.05 % Nasal 15 ML SPRAY 2 SPRAY NOSTRIL-R (05:58)
== END 2020-11-04 06:42 | disposition home or self-care (01) ==
PROVIDERS: Emergency Provider Student in an Organized Health Care Education/Training Program; PCP Internal Medicine Rheumatology
DX: R04.0 Epistaxis (principal); J44.9 Chronic obstructive pulmonary disease, unspecified; E11.9 Type 2 diabetes mellitus without complications; K21.9 Gastro-esophageal reflux disease without esophagitis
CPT/HCPCS: 36415; 80048; 85025; 85610; 85730; 99283

== ENCOUNTER → 2020-11-06 14:40 | Outpatient (BNVA) | payer OTHER, SELFPAY | PROVIDERS: PCP Internal Medicine Rheumatology; Visit Provider Hospitalist ==

== ENCOUNTER 2020-11-30 12:07 | Outpatient (REF) | payer OTHER, SELFPAY | END 2020-11-30 12:08 | disposition home or self-care (01) | LOC: HO.MDS 12:07 | PROVIDERS: PCP Internal Medicine Rheumatology; Visit Provider Hospitalist | DX: J45.50 Severe persistent asthma, uncomplicated (principal) | CPT/HCPCS: 96372; J2182 ==

== ENCOUNTER 2020-12-28 13:33 | Outpatient (REF) | payer OTHER, SELFPAY | END 2020-12-28 13:34 | disposition home or self-care (01) | LOC: HO.MDS 13:33 | PROVIDERS: PCP Internal Medicine Rheumatology; Visit Provider Hospitalist | DX: J45.50 Severe persistent asthma, uncomplicated (principal) | CPT/HCPCS: 96372; J2182 ==

== ENCOUNTER → 2021-01-09 14:32 | Outpatient (BNVA) | payer OTHER, SELFPAY | PROVIDERS: PCP Internal Medicine Rheumatology; Visit Provider Hospitalist | DX: K21.9 Gastro-esophageal reflux disease without esophagitis (principal); J41.1 Mucopurulent chronic bronchitis; J45.41 Moderate persistent asthma with (acute) exacerbation; J44.9 Chronic obstructive pulmonary disease, unspecified | CPT/HCPCS: 99212 ==

== ENCOUNTER 2021-02-12 15:44 | Outpatient (REF) | payer OTHER, SELFPAY | END 2021-02-12 15:45 | disposition home or self-care (01) | LOC: HO.MDS 15:44 | PROVIDERS: PCP Internal Medicine Rheumatology; Visit Provider Hospitalist | DX: J45.50 Severe persistent asthma, uncomplicated (principal) | CPT/HCPCS: 96372; J2182 ==

== ENCOUNTER 2021-03-12 13:06 | Outpatient (REF) | payer OTHER, SELFPAY | END 2021-03-12 13:07 | disposition home or self-care (01) | LOC: HO.MDS 13:06 | PROVIDERS: PCP Internal Medicine Rheumatology; Visit Provider Hospitalist | DX: J45.50 Severe persistent asthma, uncomplicated (principal) | CPT/HCPCS: 96372; J2182 ==

== ENCOUNTER 2021-04-09 | Outpatient (REF) | payer OTHER, SELFPAY | END 2021-04-09 00:01 | disposition home or self-care (01) | LOC: CF | PROVIDERS: Visit Provider Hospitalist | DX: J44.9 Chronic obstructive pulmonary disease, unspecified (principal); J45.41 Moderate persistent asthma with (acute) exacerbation; K21.9 Gastro-esophageal reflux disease without esophagitis | CPT/HCPCS: 96372; 99212 ==

== ENCOUNTER 2021-04-09 13:02 | Outpatient (REF) | payer OTHER, SELFPAY | END 2021-04-09 13:03 | disposition home or self-care (01) | LOC: HO.MDS 13:02 | PROVIDERS: PCP Internal Medicine Rheumatology; Visit Provider Hospitalist | DX: J45.50 Severe persistent asthma, uncomplicated (principal) | CPT/HCPCS: J2182 ==

== ENCOUNTER 2021-04-28 15:09 | Emergency (ER) | payer OTHER, SELFPAY ==
[2021-04-28 17:07] VITALS: BP 153/92; PULSE 98; RESP 18; TEMP 36.6; O2SAT 99; BMI 35.4
--- NOTE | 2021-04-28 17:41 | ED.EXTPRO ---
HPI - Extremity Problem General Chief complaint: Extremity Problem Stated complaint: Left foot pain Time Seen by Provider: 04/28/21 17:27 Source: patient Mode of arrival: ambulatory History of Present Illness HPI Narrative: 70-year-old female with a past medical history of asthma, anxiety, COPD, bronchitis, depression, diabetes, dyspnea, GERD, presenting to the ED complaining chronic wart to left 2nd toe x3 months requesting podiatry referral. Reports she has been unable to see specialist and pain/swelling has been worsening. Also requesting referral for Ophthalmology and orthopedics. Denies fever, chills, injury to area, new or different symptoms than chronic MD Complaint: extremity pain Related Data Home Medications Medication Instructions Recorded Confirmed buspirone 15 mg tablet mg PO 04/17/20 01/09/21 cimetidine 200 mg tablet PO 04/17/20 01/09/21 duloxetine 60 mg capsule,delayed mg PO 04/17/20 01/09/21 release gabapentin 800 mg tablet PO 04/17/20 01/09/21 ondansetron HCl 4 mg tablet PO 04/17/20 01/09/21 buprenorphine 2 mg-naloxone 0.5 mg SUBLINGUAL 04/26/20 01/09/21 sublingual film cyclobenzaprine 5 mg tablet mg PO 04/26/20 01/09/21 pramipexole 0.125 mg tablet mg PO 04/26/20 01/09/21 varicella-zoster glycoE [id number] IM 04/26/20 01/09/21 adj(PF) 50 mcg/0.5 mL IM susp, kit Previous Rx's Medication Instructions Recorded albuterol sulfate 90 mcg/actuation 2 puff INHALATION Q4-6H PRN #6.7 g 04/17/20 aerosol inhaler doxycycline hyclate 100 mg capsule 100 mg PO BID #14 cap 05/07/20 prednisone 20 mg tablet 40 mg PO ONCE #10 tab 05/07/20 budesonide 0.5 mg/2 mL suspension 0.5 mg INHALATION BID #120 ml 05/19/20 for nebulization fluticasone propionate 50 1 spray INTRANASAL DAILY #15.8 ml 06/07/20 mcg/actuation nasal spray,suspension mepolizumab 100 mg/mL subcutaneous 100 mg SUBCUT Q4W 30 Days #2 ml 06/20/20 syringe (Nucala) azithromycin 500 mg tablet 500 mg PO DAILY 3 Days #3 tab 06/27/20 cefuroxime axetil 500 mg tablet 500 mg PO BID 7 Days #14 tab 07/12/20 prednisone 20 mg tablet 40 mg PO DAILY 5 Days #10 tab 07/12/20 pantoprazole 20 mg tablet,delayed 20 mg PO DAILY 30 Days #30 tab 07/19/20 release tizanidine 2 mg tablet 2 mg PO Q8H PRN 30 Days #60 tab 08/01/20 albuterol sulfate 2.5 mg INHALATION Q6H PRN 30 Days 08/03/20 #240 ml montelukast 10 mg tablet 10 mg PO BEDTIME 30 Days #30 tab 08/03/20 (Singulair) dextromethorphan-guaifenesin 5 10 ml PO Q4-8H PRN 14 Days #355 ml 11/06/20 mg-100 mg/5 mL oral liquid (Robitussin Cough-Chest Congestion DM) nystatin 500,000 unit tablet 500,000 unit PO TID 10 Days #30 tab 01/09/21 trazodone 100 mg tablet 100 mg PO .COMPLEX 30 Days #30 tab 04/13/21 Allergies Allergy/AdvReac Type Severity Reaction Status Date / Time No Known Allergies Allergy Verified 04/09/21 13:49 [No Known Allergies*] Review of Systems Review of Systems: Constitutional: No Fever, No Chills ENT/Mouth: No Ear Pain, No Nasal Congestion, No Sinus Pain, No sore throat, No Rhinorrhea, No Swallowing Difficulty Cardiovascular: No Chest Pain, No SOB Respiratory: No Cough, No Sputum, No Wheezing Gastrointestinal: No Nausea, No Vomiting, No Diarrhea, No Constipation, No Abdominal pain Genitourinary:, No Dysuria, No Hematuria, No Urgency, No Flank Pain Musculoskeletal: No joint pain, No Myalgias, No Joint Swelling Skin: + Skin Lesions, No rash Neuro: No Weakness, No Numbness, No Paresthesias Yes all other systems are reviewed and are negative [facility] Past Medical History Attestation statement: The following information was validated with the patient. Medical History (Updated 04/28/21 @ 17:51 by BRIGHT Abdullahi) Anxiety Asthma Asthma exacerbation Asthma-COPD overlap syndrome Chronic bronchitis COPD (chronic obstructive pulmonary disease) Depression Diabetes mellitus, type 2 Dyspnea GERD (gastroesophageal reflux disease) Pneumonitis Surgical History History of section History of shoulder surgery Family History Family History Father Cancer Mother No problems noted. Social History Social History (Updated 01/09/21 @ 14:42 by Olga Rodrigues Josr) Alcohol intake: current Alcohol intake frequency: does not drink Alcohol type: wine Patient Tobacco Use Status: Never used Tobacco Advance Directives: No Advance Directives Information Provided: No Physical Exam Vital Signs: Vital Signs: Last Vital Signs Temp 97.8 F 04/28/21 17:07 Pulse 98 04/28/21 17:07 Resp 18 04/28/21 17:07 BP 153/92 H 04/28/21 17:07 Pulse Ox 99 04/28/21 17:07 Body Mass Index 35.4 Const: General: cooperative, healthy appearing and no acute distress Orientation/consciousness: patient oriented x3 Limitations: no limitations HENMT: Head: Yes normal to inspection Ears: hearing grossly normal bilaterally General nose exam: Normal external nose present Face and sinus: Yes normal facial exam Eyes: General: appearance normal, both eyes and all related structures EOM: EOMs intact bilaterally Neck: Neck: Yes normal visual inspection and Yes no meningeal signs Resp: Effort & Inspection: normal respiratory effort and no respiratory distress Cardio: Rate: regular rate Heart sounds: S1 normal heart sound present and S2 normal heart sound present Skin: Other: + inflamed wart noted to medial aspect of left 2nd toe with slight erythema, tender to palpation. No evidence of cellulitis. No flexion/induration or streaking Rashes: no rashes Wounds: no wounds Neuro: General: patient oriented x3 and no meningeal signs Gait exam (Neuro): Normal gait present Extrem: General: Yes normal to inspection MDM - Extremity (Nontraumatic) MDM Narrative Medical decision making narrative: 70-year-old female with a past medical history of asthma, anxiety, COPD, bronchitis, depression, diabetes, dyspnea, GERD, presenting to the ED complaining chronic wart to left 2nd toe x3 months requesting podiatry referral. On exam VS, NAD/well-appearing, physical exam as above. Large inflamed wart noted to left foot 2nd toe, no evidence of active infection. Discussed with patient needed podiatry follow-up Discharge Plan Discharge Clinical Impression: Plantar wart, left foot Patient Disposition: Home, Self-Care Instructions: Plantar Martint (ED) Additional Instructions: You need to follow-up with podiatry. Also listed on her paperwork is ophthalmology and orthopedic referral as requested Prescriptions: No Action budesonide 0.5 mg/2 mL suspension for nebulization 0.5 mg inhalation BID Qty: 120 RF: 3 fluticasone propionate 50 mcg/actuation spray,suspension 1 spray intranasal DAILY Qty: 15.8 RF: 2 Nucala 100 mg/mL syringe 100 mg subcut Q4W 30 Days Qty: 2 RF: 11 azithromycin 500 mg tablet 500 mg PO DAILY 3 Days Qty: 3 RF: 0 pantoprazole 20 mg tablet,delayed release (DR/EC) 20 mg PO DAILY 30 Days Qty: 30 RF: 6 tizanidine 2 mg tablet 2 mg PO Q8H PRN (Reason: muscle spasticity) 30 Days Qty: 60 RF: 3 trazodone 100 mg tablet 100 mg PO .COMPLEX 30 Days Qty: 30 RF: 6 prednisone 20 mg tablet 40 mg PO ONCE Qty: 10 RF: 0 doxycycline hyclate 100 mg capsule 100 mg PO BID Qty: 14 RF: 0 prednisone 20 mg tablet 40 mg PO DAILY 5 Days Qty: 10 RF: 0 cefuroxime axetil 500 mg tablet 500 mg PO BID 7 Days Qty: 14 RF: 0 ondansetron HCl 4 mg tablet PO RF: 0 gabapentin 800 mg tablet PO RF: 0 cimetidine 200 mg tablet PO RF: 0 buspirone 15 mg tablet PO RF: 0 duloxetine 60 mg capsule,delayed release(DR/EC) PO RF: 0 albuterol sulfate 90 mcg/actuation HFA aerosol inhaler 2 puff inhalation Q4-6H PRN (Reason: shortness of breath or wheezing) Qty: 6.7 RF: 0 montelukast [Singulair] 10 mg tablet 10 mg PO BEDTIME 30 Days Qty: 30 RF: 11 albuterol sulfate 2.5 mg /3 mL (0.083 %) solution for nebulization 2.5 mg inhalation Q6H PRN (Reason: shortness of breath or wheezing) 30 Days Qty: 240 RF: 11 Robitussin Cough-Chest Lee DM 5-100 mg/5 mL liquid 10 ml PO Q4-8H PRN (Reason: cough) 14 Days Qty: 355 RF: 0 nystatin 500,000 unit tablet 500,000 unit PO TID 10 Days Qty: 30 RF: 3 Shingrix (PF) 50 mcg/0.5 mL suspension for reconstitution IM RF: 0 buprenorphine-naloxone 2-0.5 mg film sublingual RF: 0 pramipexole 0.125 mg tablet PO RF: 0 cyclobenzaprine 5 mg tablet PO RF: 0 Referrals: Arnulfo Davis MD [Physician] - 1 week Kip Davis DPM [Physician] - 1 week Armando Jameson [Physician] - 1 week Henri Pyle PA-C [Physician Trial Paralegal] - 1 week
== END 2021-04-28 18:05 | disposition home or self-care (01) ==
PROVIDERS: Emergency Provider Internal Medicine; PCP Internal Medicine Rheumatology
DX: B07.0 Plantar wart (principal); E11.9 Type 2 diabetes mellitus without complications; J44.9 Chronic obstructive pulmonary disease, unspecified
CPT/HCPCS: 99283

== ENCOUNTER 2021-05-17 12:29 | Outpatient (REF) | payer OTHER, SELFPAY | END 2021-05-17 12:30 | disposition home or self-care (01) | LOC: HO.MDS 12:29 | PROVIDERS: PCP Internal Medicine Rheumatology; Visit Provider Hospitalist | DX: J45.50 Severe persistent asthma, uncomplicated (principal) | CPT/HCPCS: 96372; J2182 ==

== ENCOUNTER 2021-06-14 13:10 | Outpatient (REF) | payer OTHER, SELFPAY | END 2021-06-14 13:11 | disposition home or self-care (01) | LOC: HO.MDS 13:10 | PROVIDERS: PCP Internal Medicine Rheumatology; Visit Provider Hospitalist | DX: J45.50 Severe persistent asthma, uncomplicated (principal) | CPT/HCPCS: 96372; J2182 ==

== ENCOUNTER 2021-08-04 22:23 | Emergency (ER) | payer OTHER, SELFPAY ==
[2021-08-04 22:48] VITALS: BP 146/80; PULSE 111; RESP 20; TEMP 37; O2SAT 95; BMI 44.2
--- NOTE | 2021-08-05 03:35 | ED.GENADULT ---
HPI - General Adult General Chief complaint: General Medical Stated complaint: rt leg pain ..fell and ?hernia Time Seen by Provider: 08/05/21 03:35 Source: patient Mode of arrival: ambulatory History of Present Illness HPI narrative: 71-year-old female with history of COPD presents with driving herself from home stating that she has bilateral leg pain rated as 10/10 for approximately 2 weeks. She states she fell 2 weeks ago patient states she knows a lump in her left groin this week. Patient denies any fever chills, GI or symptoms. Patient denies any alcohol or drug use. Related Data Home Medications Medication Instructions Recorded Confirmed buspirone 15 mg tablet mg PO 04/17/20 01/09/21 cimetidine 200 mg tablet PO 04/17/20 01/09/21 duloxetine 60 mg capsule,delayed mg PO 04/17/20 01/09/21 release gabapentin 800 mg tablet PO 04/17/20 01/09/21 ondansetron HCl 4 mg tablet PO 04/17/20 01/09/21 buprenorphine 2 mg-naloxone 0.5 mg SUBLINGUAL 04/26/20 01/09/21 sublingual film cyclobenzaprine 5 mg tablet mg PO 04/26/20 01/09/21 pramipexole 0.125 mg tablet mg PO 04/26/20 01/09/21 varicella-zoster glycoE [id number] IM 04/26/20 01/09/21 adj(PF) 50 mcg/0.5 mL IM susp, kit Previous Rx's Medication Instructions Recorded albuterol sulfate 90 mcg/actuation 2 puff INHALATION Q4-6H PRN #6.7 g 04/17/20 aerosol inhaler doxycycline hyclate 100 mg capsule 100 mg PO BID #14 cap 05/07/20 prednisone 20 mg tablet 40 mg PO ONCE #10 tab 05/07/20 budesonide 0.5 mg/2 mL suspension 0.5 mg (2 mL) INHALATION BID #120 05/19/20 for nebulization ml fluticasone propionate 50 1 spray INTRANASAL DAILY #15.8 ml 06/07/20 mcg/actuation nasal spray,suspension mepolizumab 100 mg/mL subcutaneous 100 mg SUBCUT Q4W 30 Days #2 ml 06/20/20 syringe (Nucala) azithromycin 500 mg tablet 500 mg PO DAILY 3 Days #3 tab 12/15/20 cefuroxime axetil 500 mg tablet 500 mg PO BID 7 Days #14 tab 07/12/20 prednisone 20 mg tablet 40 mg PO DAILY 5 Days #10 tab 07/12/20 pantoprazole 20 mg tablet,delayed 20 mg PO DAILY 30 Days #30 tab 07/19/20 release tizanidine 2 mg tablet 2 mg PO Q8H PRN 30 Days #60 tab 08/01/20 albuterol sulfate 2.5 mg (3 mL) INHALATION Q6H PRN 08/03/20 30 Days #240 ml montelukast 10 mg tablet 10 mg PO BEDTIME 30 Days #30 tab 08/03/20 (Singulair) dextromethorphan-guaifenesin 5 10 ml PO Q4-8H PRN 14 Days #355 ml 11/06/20 mg-100 mg/5 mL oral liquid (Robitussin Cough-Chest Congestion DM) nystatin 500,000 unit tablet 500,000 unit PO TID 10 Days #30 tab 01/09/21 trazodone 100 mg tablet 100 mg PO .COMPLEX 30 Days #30 tab 04/13/21 cephalexin 500 mg capsule 500 mg PO Q12H 7 Days #14 cap 08/05/21 doxycycline hyclate 100 mg capsule 100 mg PO BID 7 Days #14 cap 08/05/21 Allergies Allergy/AdvReac Type Severity Reaction Status Date / Time No Known Allergies Allergy Verified 08/04/21 22:48 [No Known Allergies*] Review of Systems Review of Systems: Pertinent positives and negatives as stated in HPI 10 point review of systems is otherwise negative. [facility] Past Medical History Source: nursing notes reviewed Medical History Anxiety Asthma Asthma exacerbation Asthma-COPD overlap syndrome Chronic bronchitis COPD (chronic obstructive pulmonary disease) Depression Diabetes mellitus, type 2 Dyspnea GERD (gastroesophageal reflux disease) Pneumonitis Surgical History History of section History of shoulder surgery Family History Family History Father Cancer Mother No problems noted. Social History Social History Alcohol intake: never Patient Tobacco Use Status: Never used Tobacco Use of substances other than those prescribed or required for medical reasons: No Advance Directives: No Advance Directives Information Provided: No Physical Exam Vital Signs: Vital Signs: Last Vital Signs Temp 98.6 F 08/05/21 05:46 Pulse 97 08/05/21 05:46 Resp 12 08/05/21 05:46 BP 103/57 L 08/05/21 05:46 Pulse Ox 92 08/05/21 05:46 BMI result Body Mass Index 44.2 VITAL SIGNS: Reviewed. GENERAL: Well developed, well nourished, mild distress. HEAD: Normocephalic/atraumatic EYES: PERRLA, EOMI OROPHARYNX: no oral lesions noted, posterior pharynx clear, dry mucosa NECK: Supple, no adenopathy LUNGS: Normal breath sounds. No adventitious sounds or accessory muscle use. SpO2<95> CARDIOVASCULAR: Regular rate and rhythm without noted murmurs, no JVD or lower extremity edema. ABDOMEN: Soft, non-tender, non-distended with bowel sounds, 3.5 cm abscess that is erythematous and fluctuant noted at left groin with induration tracking into left medial aspect of left thigh MUSCULOSKELETAL: No tenderness, deformities, or effusions noted on gross inspection. EXTREMITIES: No cyanosis, clubbing or edema. SKIN: Inspection of the skin reveals no rashes NEUROLOGIC: Alert and oriented x 4. Strength and sensation to light touch were grossly intact x 4. Course Course Course Narrative: 71-year-old female with history and clinical presentation consistent with abscess at left groin and associated cellulitis of unknown origin. Review of all investigations without acute findings when compared to prior. Patient tolerated incision and drainage of abscess well. Procedures Abscess I/D Site: lower extremity Side (if applicable): left Local Anesthetic: lidocaine 1% Amount of anesthesia used (mL): 5 Technique: incised with blade Amount of fluid expressed (mL): 75 Sent for culture/gram staining?: No Irrigation: Yes Packing used?: plain Medical Decision Making Lab Data Result diagrams: 08/05/21 03:59 08/05/21 03:59 Labs: Lab Results 08/05/21 08/05/21 08/05/21 Range/Units 03:59 03:59 03:59 WBC 8.0 (4.8-10.8) X10*3/uL RBC 3.09 L (4.20-5.50) X10*6/uL Hgb 9.7 L (12.0-16.0) g/dl Hct 29.5 L (37.0-47.0) % MCV 95.5 (80.0-98.0) fL MCH 31.4 (27.0-33.0) pg MCHC 32.9 (31.0-35.0) g/dl RDW 14.6 (11.0-16.0) % Plt Count 250 (160-400) X10*3/uL MPV 8.9 L (9.4-12.3) fL Immature Gran % (Auto) 0.8 H (0.0-0.4) % Neut % (Auto) 71.2 (45-73) % Lymph % (Auto) 17.8 L (20-40) % [place] % (Auto) 9.8 (2-11) % Eos % (Auto) 0.3 (0-4) % Baso % (Auto) 0.1 (0-2) % Lymph # (Auto) 1.4 (1.2-4.9) X10*3/uL [place] # (Auto) 0.8 (0.1-1.2) X10*3/uL Eos # (Auto) 0.0 (0.0-0.4) X10*3/uL Baso # (Auto) 0.0 (0.0-0.2) X10*3/uL Abs Immat Gran (auto) 0.06 H (0.00-0.03) X10*3/uL Absolute Neuts (auto) 5.7 (2.0-8.3) x10*3/uL Absolute Nucleated RBC 0.000 (0.0-0.012) X10*3/uL Nucleated RBC % (auto) 0.0 (0.0-0.2) /100WBC Sodium 136 (135-145) mmol/L Potassium 4.7 (3.3-5.1) mmol/L Chloride 97 (96-108) mmol/L Carbon Dioxide 28 (22-29) mmol/L Anion Gap 16 (12-20) BUN 11 (9-16) mg/dL Creatinine 0.68 (0.5-1.4) mg/dL Estim Creat Clear Calc 89.3 Estimated GFR > 60 Random Glucose 109 (60-115) mg/dL Lactic Acid 1.0 (0.5-2.0) mmol/L Calcium 9.3 (8.4-10.2) mg/dL Total Bilirubin 0.2 (0.0-1.0) mg/dL AST 21 (5-31) U/L ALT 22 (0-31) U/L Alkaline Phosphatase 105 (39-117) U/L Total Protein 6.6 (6.5-8.0) g/dL Albumin 3.5 (3.5-5.0) g/dL Discharge Plan Discharge Clinical Impression: Abscess Patient Disposition: Home, Self-Care Instructions: Abscess (ED), Abscess Incision and Drainage (DC) Additional Instructions: 1. Resume all home medications as prescribed. You will need to complete the entire course of antibiotics that you have been prescribed. 2. Call your physician on Friday morning and arrange for removal of the wound packing on Friday, 08/08. Until Friday keep the dressing clean and dry. Return to the ER for worsening symptoms. Prescriptions: New cephalexin 500 mg capsule 500 mg PO Q12H 7 Days Qty: 14 RF: 0 doxycycline hyclate 100 mg capsule 100 mg PO BID 7 Days Qty: 14 RF: 0 No Action budesonide 0.5 mg/2 mL suspension for nebulization 0.5 mg inhalation BID Qty: 120 RF: 3 fluticasone propionate 50 mcg/actuation spray,suspension 1 spray intranasal DAILY Qty: 15.8 RF: 2 Nucala 100 mg/mL syringe 100 mg subcut Q4W 30 Days Qty: 2 RF: 11 azithromycin 500 mg tablet 500 mg PO DAILY 3 Days Qty: 3 RF: 0 pantoprazole 20 mg tablet,delayed release (DR/EC) 20 mg PO DAILY 30 Days Qty: 30 RF: 6 tizanidine 2 mg tablet 2 mg PO Q8H PRN (Reason: muscle spasticity) 30 Days Qty: 60 RF: 3 trazodone 100 mg tablet 100 mg PO .COMPLEX 30 Days Qty: 30 RF: 6 prednisone 20 mg tablet 40 mg PO ONCE Qty: 10 RF: 0 doxycycline hyclate 100 mg capsule 100 mg PO BID Qty: 14 RF: 0 prednisone 20 mg tablet 40 mg PO DAILY 5 Days Qty: 10 RF: 0 cefuroxime axetil 500 mg tablet 500 mg PO BID 7 Days Qty: 14 RF: 0 ondansetron HCl 4 mg tablet PO RF: 0 gabapentin 800 mg tablet PO RF: 0 cimetidine 200 mg tablet PO RF: 0 buspirone 15 mg tablet PO RF: 0 duloxetine 60 mg capsule,delayed release(DR/EC) PO RF: 0 albuterol sulfate 90 mcg/actuation HFA aerosol inhaler 2 puff inhalation Q4-6H PRN (Reason: shortness of breath or wheezing) Qty: 6.7 RF: 0 montelukast [Singulair] 10 mg tablet 10 mg PO BEDTIME 30 Days Qty: 30 RF: 11 albuterol sulfate 2.5 mg /3 mL (0.083 %) solution for nebulization 2.5 mg inhalation Q6H PRN (Reason: shortness of breath or wheezing) 30 Days Qty: 240 RF: 11 Robitussin Cough-Chest Ele DM 5-100 mg/5 mL liquid 10 ml PO Q4-8H PRN (Reason: cough) 14 Days Qty: 355 RF: 0 nystatin 500,000 unit tablet 500,000 unit PO TID 10 Days Qty: 30 RF: 3 Shingrix (PF) 50 mcg/0.5 mL suspension for reconstitution IM RF: 0 buprenorphine-naloxone 2-0.5 mg film sublingual RF: 0 pramipexole 0.125 mg tablet PO RF: 0 cyclobenzaprine 5 mg tablet PO RF: 0
[2021-08-05 04:11] LABS: Basophils Percent Auto 0.1 % (0-2); Eosinophils Percent Auto 0.3 % (0-4); Hematocrit 29.5 % (37.0-47.0); Hemoglobin 9.7 g/dl (12.0-16.0); Imm Gran Abs Auto 0.06 X10*3/uL (0.00-0.03); Imm Gran Pct Auto 0.8 % (0.0-0.4); Lymphocytes Absolute Auto 1.4 X10*3/uL (1.2-4.9); Lymphocytes Percent Auto 17.8 % (20-40); MANUAL DIFF FLAG NO; Mean Corpuscular HGB Conc 32.9 g/dl (31.0-35.0); Mean Corpuscular Hemoglobin 31.4 pg (27.0-33.0); Mean Corpuscular Volume 95.5 fL (80.0-98.0); Mean Platelet Volume 8.9 fL (9.4-12.3); Monocytes Absolute Auto 0.8 X10*3/uL (0.1-1.2); Monocytes Percent Auto 9.8 % (2-11); Neutrophils Absolute Auto 5.7 x10*3/uL (2.0-8.3); Neutrophils Percent Auto 71.2 % (45-73); Platelet Count 250 X10*3/uL (160-400); Red Blood Count 3.09 X10*6/uL (4.20-5.50); Red Cell Distribution Width 14.6 % (11.0-16.0)
[2021-08-05 04:28] LABS: Alanine Aminotransferase 22 U/L (0-31); Albumin Level 3.5 g/dL (3.5-5.0); Alkaline Phosphatase 105 U/L (39-117); Anion Gap 16 (12-20); Aspartate Amino Transferase 21 U/L (5-31); Bilirubin Total 0.2 mg/dL (0.0-1.0); Blood Urea Nitrogen 11 mg/dL (9-16); Calcium 9.3 mg/dL (8.4-10.2); Carbon Dioxide 28 mmol/L (22-29); Chloride 97 mmol/L (96-108); Creatinine Clr Calc Pharmacy 89.3; Estimated Glomerular Filt Rate > 60; Glucose Random 109 mg/dL (60-115); Potassium 4.7 mmol/L (3.3-5.1); Sodium 136 mmol/L (135-145); Total Protein 6.6 g/dL (6.5-8.0)
[2021-08-05] MEDS: Acetaminophen 325 MG TABLET 975 MG PO (04:34)
[2021-08-05] MEDS: Ketorolac Tromethamine 30 MG/ML VIAL 15 MG IVPUSH (04:34)
[2021-08-05] MEDS: Lidocaine HCl 2 % MPF 5 ML VIAL INFILTRATI (04:34)
[2021-08-05 05:46] VITALS: BP 103/57; PULSE 97; RESP 12; TEMP 37; O2SAT 92
[2021-08-05] MEDS: cephALEXin 500 MG CAPSULE PO (07:35)
== END 2021-08-05 08:07 | disposition home or self-care (01) ==
PROVIDERS: Emergency Provider Student in an Organized Health Care Education/Training Program
DX: L02.416 Cutaneous abscess of left lower limb (principal); M79.604 Pain in right leg; Z79.899 Other long term (current) drug therapy
CPT/HCPCS: 10060; 36415; 80053; 83605; 85025; 87040; 96374; 99284; J1885

== ENCOUNTER → 2021-08-07 14:39 | Outpatient (BNVA) | payer OTHER, SELFPAY | PROVIDERS: PCP Internal Medicine Rheumatology; Visit Provider Hospitalist | DX: J45.41 Moderate persistent asthma with (acute) exacerbation (principal); J44.9 Chronic obstructive pulmonary disease, unspecified; K21.9 Gastro-esophageal reflux disease without esophagitis | CPT/HCPCS: 99212 ==

== ENCOUNTER 2021-08-17 18:27 | Emergency (ER) | payer OTHER, SELFPAY ==
--- NOTE | ~2021-08-17 | CT_ITS ---
EXAMINATION: CT CHEST, ABDOMEN AND PELVIS WITH CONTRAST CLINICAL INFORMATION: Vomiting. Shortness of breath. COMPARISON: CT chest 05/08/2020. CT abdomen pelvis 01/23/2019 TECHNIQUE: Multidetector volumetric CT imaging of the chest, abdomen and pelvis was obtained after the administration of 95 mL of intravenous Omnipaque 350 without immediate adverse reactions. Coronal and sagittal reformatted images are performed at the CT scanner [This CT examination was performed using dose optimization techniques as appropriate, variously including the following: *Automated exposure control *Adjustment of mA and/or kV according to patient size (this includes techniques or standardized protocols for targeted exams where dose is matched to indication/reason for exam; i.e. extremities or head) *Use of iterative reconstruction technique] DLP: 389.27+937.38+7.31+7.31 mGy-cm. FINDINGS: CT CHEST: Lungs: No acute abnormality of the lung. No airspace disease. No interstitial lung disease. No bronchiectasis. Central bronchial airways are open. No suspicious lung nodules. The small lung nodules noted on the CAT scan of chest 05/08/2020 no longer evident. Mediastinum: There are small subcentimeter lymph nodes but no bulky lymphadenopathy. Largest lymph node at the fanta has short axis diameter measuring 1 cm. The heart size is normal. No pericardial effusion. No aneurysm of aorta. There are a few small scattered calcifications of descending aorta. Pleura: There is no pleural effusion. No pleural mass or thickening. Axilla: No lymphadenopathy. CT ABDOMEN AND PELVIS: Liver, Gallbladder and Biliary Tree: The liver is normal in size, shape, and attenuation. No focal hepatic lesion or biliary ductal dilatation is present. The gallbladder is unremarkable with no evidence of radiopaque gallstones, gallbladder wall thickening, or obvious pericholecystic inflammatory changes. Pancreas: No acute change of the pancreas. No mass. No pancreatic duct dilatation. Spleen: Spleen normal in size and contour. No focal lesion. Adrenal Glands: Adrenal glands are normal in size. No focal mass. Kidneys and Ureters: The kidneys are normal in size, shape, and attenuation. No hydronephrosis, hydroureter, or calculi seen. No perinephric stranding. Cortical cyst lower pole right kidney measuring 2 cm. Small parapelvic cyst mid lower pole right kidney. Small parapelvic cyst in left kidney. No follow-up imaging is recommended for simple renal cyst. Bladder: Unremarkable. Gastrointestinal Tract: There are scattered diverticula of the colon. There is no diverticulitis. There is no bowel wall thickening /edema. There is no bowel obstruction. There is a moderate volume of stool in the colon. The appendix is normal . The small bowel loops are unremarkable. The stomach is normal. There is no hiatal hernia. Mesentery: No focal inflammation. No free fluid. No free air. Abdominal Wall: No significant hernia is appreciated. Lymph Nodes: Normal. Vascular: Scattered vascular calcifications of the wall of aorta. No aneurysm. Pelvic Viscera: Unremarkable. Osseous Structures: Multilevel degenerative spondylosis spine. CT/CT abdomen pelvis w con IMPRESSION: No acute abnormality CT of the chest, abdomen or pelvis.
--- NOTE | ~2021-08-17 | CT_ITS ---
EXAMINATION: CT HEAD WITHOUT CONTRAST CLINICAL INFORMATION: Altered mental status. COMPARISON: None available. TECHNIQUE: Contiguous axial imaging was performed from the skull base to vertex without intravenous administration of contrast. This CT examination was performed using dose optimization techniques as appropriate, variously including the following: *Automated exposure control. *Adjustment of mA and/or kV according to patient size (this includes techniques or standardized protocols for targeted exams where dose is matched to indication/reason for exam; i.e. extremities or head). *Use of iterative reconstruction technique. DLP: 818 mGy-cm FINDINGS: Mildly motion degraded exam. There is no evidence of acute intracranial hemorrhage or edematous territorial infarction. A few foci of hypoattenuation in the periventricular and deep white matter are consistent with mild microangiopathy. Simmons-white matter differentiation is preserved. Proportional prominence of the ventricles and sulcal spaces. No evidence for obstructive hydrocephalus. No abnormal mass effect or midline shift. No extra-axial fluid collections. No acute soft tissue or osseous abnormalities. Mild mucosal thickening of the paranasal sinuses. The mastoid air cells and middle ear cavities are clear. The patient is edentulous. Bilateral lens extractions. CT/CT head/brain wo con IMPRESSION: 1. No evidence of acute intracranial hemorrhage or edematous territorial infarction. 2. Mild underlying microangiopathy and generalized cerebral volume loss.
[2021-08-17 18:42] VITALS: BP 150/74; BP 156/88; PULSE 100; PULSE 97; RESP 11; RESP 16; TEMP 37.3; O2SAT 97; O2SAT 98; BMI 35.4
--- NOTE | 2021-08-17 18:48 | ECG_ITS ---
Test Reason : DYSPNEA Blood Pressure : / mmHG Vent. Rate : 082 BPM Atrial Rate : 082 BPM P-R Int : 132 ms QRS Dur : 084 ms QT Int : 408 ms P-R-T Axes : 066 -03 028 degrees QTc Int : 476 ms Normal sinus rhythm Normal ECG When compared with ECG of 12-JUL-2020 16:24, No significant change was found Referred By: Tammy Harding Electronically Signed By:MARILU JONAS
--- NOTE | 2021-08-17 18:48 | ED_ITS ---
HPI - Nausea/Vomiting/Diarrhea General Chief complaint: Nausea/Vomiting/Diarrhea <BRIGHT Ramos Last Filed: 08/18/21 03:54> Stated complaint: LETHARGIC,NAUSEA,VOMITING PER EMS <BRIGHT Ramos Last Filed: 12/02 03:54> Time Seen by Provider: 08/17/21 18:47 <BRIGHT Ramos Last Filed: 08/18/21 03:54> Source: patient <BRIGHT Ramos Last Filed: 08/18/21 03:54> Mode of arrival: EMS <BRIGHT Ramos Last Filed: 08/18/21 03:54> Limitations: other (Patient poor historian) <BRIGHT Ramos Last Filed: 08/18/21 03:54> History of Present Illness HPI Narrative: A 71-year-old female pmhx asthma, COPD, gerd, depression, DM, coming in via ambulance with concerns of abdominal pain, weakness, vomiting x2 days prog ressively worsening. According to EMS patient was found on the floor at home naked, vomiting. It appears as though patient called 911 herself. Patient is a poor historian and is telling me that she has been vomiting since yesterday and is having diffuse abdominal pain. No signs of evident trauma. Patient appears weak. Patient is slow to answer questions and appears lethargic. Patient lives at home by herself. Vaccinated against COVID Pfizer x2. Patient denies fevers, chills, vomiting, chest pain, shortness of breath however, patient is a poor historian. Patient also reports she is on suboxone, unsure of when she took her last dose. <BRIGHT Ramos Last Filed: 08/18/21 03:54> MD elicited complaint: nausea, vomiting and abdominal pain <BRIGHT Ramos Last Filed: 08/18/21 03:54> Onset (ago): day(s) (2) <BRIGHT Ramos Last Filed: 08/18/21 03:54> Associated nausea: Yes <BRIGHT Ramos Last Filed: 08/18/21 03:54> Associated abdominal pain: Yes <BRIGHT Ramos Last Filed: 08/18/21 03:54> Location of pain: diffuse <BRIGHT Ramos Last Filed: 08/18/21 03:54> Radiation: diffuse <BRIGHT Ramos Last Filed: 08/18/21 03:54> Pain consistency: constant <BRIGHT Ramos Last Filed: 08/18/21 03:54> Severity: severe <BRIGHT Ramos Last Filed: 08/18/21 03:54> Exacerbating factors: none <BRIGHT Ramos Last Filed: 08/18/21 03:54> Relieving factors: none <BRIGHT Ramos Last Filed: 08/18/21 03:54> Associated symptoms: nausea/vomiting <BRIGHT Ramos Last Filed: 08/18/21 03:54> Related Data Home medications: Home Medications Medication Instructions Recorded Confirmed buspirone 15 mg tablet mg PO 04/17/20 01/09/21 cimetidine 200 mg tablet PO 04/17/20 01/09/21 duloxetine 60 mg capsule,delayed mg PO 04/17/20 01/09/21 release gabapentin 800 mg tablet PO 04/17/20 01/09/21 ondansetron HCl 4 mg tablet PO 04/17/20 01/09/21 buprenorphine 2 mg-naloxone 0.5 mg SUBLINGUAL 04/26/20 01/09/21 sublingual film cyclobenzaprine 5 mg tablet mg PO 04/26/20 01/09/21 pramipexole 0.125 mg tablet mg PO 04/26/20 01/09/21 varicella-zoster glycoE [id number] IM 04/26/20 01/09/21 adj(PF) 50 mcg/0.5 mL IM susp, kit Previous Rx's Medication Instructions Recorded doxycycline hyclate 100 mg capsule 100 mg PO BID #14 cap 05/07/20 prednisone 20 mg tablet 40 mg PO ONCE #10 tab 05/07/20 budesonide 0.5 mg/2 mL suspension 0.5 mg (2 mL) INHALATION BID #120 05/19/20 for nebulization ml fluticasone propionate 50 1 spray INTRANASAL DAILY #15.8 ml 06/07/20 mcg/actuation nasal spray,suspension mepolizumab 100 mg/mL subcutaneous 100 mg SUBCUT Q4W 30 Days #2 ml 06/20/20 syringe (Nucala) cefuroxime axetil 500 mg tablet 500 mg PO BID 7 Days #14 tab 07/12/20 pantoprazole 20 mg tablet,delayed 20 mg PO DAILY 30 Days #30 tab 07/19/20 release tizanidine 2 mg tablet 2 mg PO Q8H PRN 30 Days #60 tab 08/01/20 albuterol sulfate 2.5 mg (3 mL) INHALATION Q6H PRN 08/03/20 30 Days #240 ml montelukast 10 mg tablet 10 mg PO BEDTIME 30 Days #30 tab 08/03/20 (Singulair) dextromethorphan-guaifenesin 5 10 ml PO Q4-8H PRN 14 Days #355 11/06/20 ml mg-100 mg/5 mL oral liquid (Robitussin Cough-Chest Congestion DM) nystatin 500,000 unit tablet 500,000 unit PO TID 10 Days #30 01/09/21 tab trazodone 100 mg tablet 100 mg PO .COMPLEX 30 Days #30 04/13/21 tab cephalexin 500 mg capsule 500 mg PO Q12H 7 Days #14 cap 08/05/21 doxycycline hyclate 100 mg capsule 100 mg PO BID 7 Days #14 cap 08/05/21 albuterol sulfate 90 mcg/actuation 2 puff INHALATION Q4-6H PRN 30 08/07/21 aerosol inhaler Days #6.7 g fluticasone propionate 110 1 puff INHALATION BID 30 Days #12 08/07/21 g mcg/actuation HFA aerosol inhaler (Flovent HFA) <BRIGHT Ramos - Last Filed: 08/18/21 03:54> Allergies/Adverse reactions: Allergies Allergy/AdvReac Type Severity Reaction Status Date / Time No Known Allergies Allergy Verified 08/07/21 15:02 [No Known Allergies*] <BRIGHT Ramos - Last Filed: 08/18/21 03:54> Review of Systems Versalima 4l Review of Systems: Verdana 4d Verdana 4d Constitutional : No Weight loss, No Fever, No Chills ENT/Mouth :? No sore throat, No Rhinorrhea Eyes: No Swelling, No Redness Cardiovascular : No Chest Pain, No SOB, NoEdema Respiratory : No Cough, No Sputum, No Wheezing GastrointestinalGastrointestinal : Positive Nausea, Positive Vomiting, No Diarrhea, positive abdominal Pain, No Hematochezia, No Melena Genitourinary : No Dysuria, No Urinary Frequency, No Hematuria, No Urgency Musculoskeletal : No joint pain, No Myalgias, No Joint Swelling Skin : No Skin Lesions, No rash Neuro : Positive Weakness, No Numbness, No Dizziness, No Headache Psych : No Anxiety/Panic, No Depression All other systems reviewed and are negative. <BRIGHT Ramos - Last Filed: 08/18/21 03:54> Yes all other systems are reviewed and are negative <BRIGHT Ramos - Last Filed: 08/18/21 03:54> Gastrointestinal: Gastrointestinal: Reports nausea <BRIGHT Ramos - Last Filed: 08/18/21 03:54> [facility] Past Medical History Attestation statement: The following information was validated with the patient. <BRIGHT Ramos - Last Filed: 08/18/21 03:54> Source: old records reviewed and nursing notes reviewed <BRIGHT Ramos - Last Filed: 08/18/21 03:54> Medical History: Medical History Anxiety Asthma Asthma exacerbation Asthma-COPD overlap syndrome Chronic bronchitis COPD (chronic obstructive pulmonary disease) Depression Diabetes mellitus, type 2 Dyspnea GERD (gastroesophageal reflux disease) Pneumonitis <BRIGHT Ramos - Last Filed: 08/18/21 03:54> Surgical History: Surgical History History of section History of shoulder surgery <BRIGHT Ramos - Last Filed: 08/18/21 03:54> Family History Family History: Family History Father Cancer Mother No problems noted. <BRIGHT Ramos - Last Filed: 08/18/21 03:54> Social History Social History: Social History Alcohol intake: never Patient Tobacco Use Status: Never used Tobacco Advance Directives: No Advance Directives Information Provided: Yes <BRIGHT Ramos - Last Filed: 08/18/21 03:54> Physical Exam Verdana 4l Vital Signs: Verdana 4d Verdana 4d Vital Signs: Verdana 4d Verdana 4Bd Last Vital Signs Verdana 4d Vamp Wetter New 4d Vamp Wetter New 4d Temp 99.2 F 08/18/21 09:34 Vamp Wetter New 4d Pulse 93 08/18/21 09:34 Vamp Wetter New 4d Resp 15 08/18/21 09:34 BP 128/67 08/18/21 09:34 Pulse Ox 95 08/18/21 09:34 BMI result Body Mass Index 35.4 VSS <BRIGHT Raoms - Last Filed: 08/18/21 03:54> Vital Signs: Last Vital Signs Temp 99.2 F 08/18/21 09:34 Pulse 93 08/18/21 09:34 Resp 15 08/18/21 09:34 BP 128/67 08/18/21 09:34 Pulse Ox 95 08/18/21 09:34 BMI result Body Mass Index 35.4 <BRIGHT Hernandez - Last Filed: 08/18/21 10:35> Appearance: Alert.? Oriented X3.? No acute distress.?Slow to answer questions Head: Normocephalic, atraumatic, no step-offs or deformities Eyes: Pupils equal, round and reactive to light.? ENT: Pharynx normal.? Neck: Normal inspection.? Neck supple.? CVS: + rapid regular rythem.? Pulses normal.? Respiratory: No respiratory distress.? Breath sounds normal.? Abdomen: Soft and + diffusely tender. Normoactive bowel sounds ? Skin: Skin warm and dry.? Normal skin color.? Normal skin turgor.? Extremities: No lower extremity edema.? No calf ttp. 5/5 strength to bilateral upper and lower extremities Back: No midline tenderness, no C-spine tenderness, full range of motion, no CVA tenderness bilaterally Neuro: Oriented X 3.? No motor deficit.? No sensory deficit. <BRIGHT Ramos - Last Filed: 08/18/21 03:54> Course Reevaluation(s) Reevaluation #1: Patient was given Tylenol for fever she immediately vomited. [place] ordered <BRIGHT Ramos - Last Filed: 08/18/21 03:54> Time: 19:52 <BRIGHT Ramos - Last Filed: 08/18/21 03:54> Reevaluation #2: The leukopenia and low H&H however this appears to be patient's baseline, I do not suspect a bacterial infection at this time. No acute electrolyte abnormalities. Salicylates and acetaminophen negative. COVID negative. CT p ending <BRIGHT Ramos - Last Filed: 08/18/21 03:54> Time: 20:02 <BRIGHT Ramos - Last Filed: 08/18/21 03:54> Reevaluation #3: No abnormalites to CT of chest, abdomen & pelvis. Head CT negative. Patient still vomiting. Urine clean. Urine tox negative. Droperidol 0.625 mg ordered still nauseous and slightly agitated. <BRIGHT Ramos - Last Filed: 08/18/21 03:54> Time: 23:42 <BRIGHT Ramos - Last Filed: 08/18/21 03:54> Additional Reevaluation(s): 0010 Trop noted to be higher than double delta, however patient doesnt complain of chest pain, more alter at this time. Will hold on asa, repeat ekg nonischemic. Repeat trop pending. 0134 Patient continues to have nausea and vomiting. A 2nd dose of droperidol be ordered. 0351 Improvement after doperidol. Spoke to Dr. Newell about patients trop they are plateauing, unlikely that this is an NSTEMI. Patient is not complaining of chest pain. Seeing as though patient is weak and was found at home unable to get up, living alone PT case managment consult has been put in. At this time patient will be placed in physician observation to allow more time to be evaluated by Case Management and Physical therapy as patient likely requires more assistance at home. At patient was not vomiting patient was in no acute distress. <BRIGHT Ramos - Last Filed: 08/18/21 03:54> 0010 Trop noted to be higher than double delta, however patient doesnt complain of chest pain, more alter at this time. Will hold on asa, repeat ekg nonischemic. Repeat trop pending. 0134 Patient continues to have nausea and vomiting. A 2nd dose of droperidol be ordered. 0351 Improvement after doperidol. Spoke to Dr. Newell about patients trop they are plateauing, unlikely that this is an NSTEMI. Patient is not complaining of chest pain. Seeing as though patient is weak and was found at home unable to get up, living alone PT case managment consult has been put in. At this time patient will be placed in physician observation to allow more time to be evaluated by Case Management and Physical therapy as patient likely requires ore assistance at home. At patient was not vomiting patient was in no acute distress. 10:33 08/18/21, BRIGHT Hernandez Physician observation continues Patient resting comfortably, vital signs are stable, lungs clear to auscultation bilaterally, heart regular rate and rhythm, nonfocal neuro, vital signs have been stable. Patient, cooperative. Awaiting PT evaluation Will continue to monitor <BRIGHT Hernandez - Last Filed: 08/18/21 10:35> MDM - Nausea/Vomiting/Diarrhea MDM Narrative Medical decision making narrative: 1912 71 yo f pmhx asthma, COPD, gerd, depression, DM, BIBA w/ concerns of abdominal pain, weakness, vomiting x2 days progressively worsening. Patient was found at home naked on the ground. Patient is a poor historian not able to tell since when she was on the ground. No evident signs of trauma. The examination with diffuse abdominal tenderness. Regular rapid rhythm noted. Lungs clear. A&O X3 however slow to answer questions. Neuro nonfocal. Plan- labs, urine, covid, CT chest, abdomen &pelvis and head. <BRIGHT Ramos - Last Filed: 08/18/21 03:54> Medical Records Attestation: I reviewed the patient's medical records. <BRIGHT Ramos - Last Filed: 08/18/21 03:54> Lab Data Attestation: I reviewed the patient's lab results. <BRIGHT Ramos - Last Filed: 08/18/21 03:54> Result diagrams: : 08/17/21 19:21 08/17/21 19:21 <BRIGHT Ramos - Last Filed: 08/18/21 03:54> Labs: Lab Results 08/17/21 08/17/21 08/17/21 Range/Units 19:21 19:21 19:21 WBC 4.7 L (4.8-10.8) X10*3/uL RBC 3.22 L (4.20-5.50) X10*6/uL Hgb 10.2 L (12.0-16.0) g/dl Hct 30.4 L (37.0-47.0) % MCV 94.4 (80.0-98.0) fL MCH 31.7 (27.0-33.0) pg MCHC 33.6 (31.0-35.0) g/dl RDW 15.4 (11.0-16.0) % Plt Count 181 D (160-400) X10*3/uL MPV 8.9 L (9.4-12.3) fL Immature Gran % (Auto) 0.4 (0.0-0.4) % Neut % (Auto) 86.0 H (45-73) % Lymph % (Auto) 8.3 L (20-40) % Nance % (Auto) 5.1 (2-11) % Eos % (Auto) 0.2 (0-4) % Baso % (Auto) 0.0 (0-2) % Lymph # (Auto) 0.4 L (1.2-4.9) X10*3/uL Nance # (Auto) 0.2 (0.1-1.2) X10*3/uL Eos # (Auto) 0.0 (0.0-0.4) X10*3/uL Baso # (Auto) 0.0 (0.0-0.2) X10*3/uL Abs Immat Gran (auto) 0.02 (0.00-0.03) X10*3/uL Absolute Neuts (auto) 4.1 (2.0-8.3) x10*3/uL Absolute Nucleated RBC 0.000 (0.0-0.012) X10*3/uL Nucleated RBC % (auto) 0.0 (0.0-0.2) /100WBC VBG pH (7.32-7.43) VBG pCO2 mmHg VBG pO2 mmHg VBG HCO3 (22-26) mmol/L VBG O2 Saturation % VBG Base Excess mmol/L Sodium 138 (135-145) mmol/L Potassium 4.1 (3.3-5.1) mmol/L Chloride 102 (96-108) mmol/L Carbon Dioxide 27 (22-29) mmol/L Anion Gap 13 (12-20) BUN 8 L (9-16) mg/dL Creatinine 0.64 (0.5-1.4) mg/dL Estim Creat Clear Calc 83.6 Estimated GFR > 60 POC Glucose (60-115) mg/dL Random Glucose 143 H (60-115) mg/dL Lactic Acid 1.1 (0.5-2.0) mmol/L Calcium 9.3 (8.4-10.2) mg/dL Magnesium 1.6 (1.6-2.6) mg/dL Total Bilirubin 0.8 (0.0-1.0) mg/dL AST 24 (5-31) U/L ALT 17 (0-31) U/L Alkaline Phosphatase 93 (39-117) U/L Ammonia (13-55) umol/L Total Creatine Kinase 66 (26-140) U/L Troponin I High Sens (<3.5-17.0) ng/L Total Protein 6.9 (6.5-8.0) g/dL Albumin 3.8 (3.5-5.0) g/dL Lipase 5 L (8-78) U/L Urine Color Urine Appearance Urine pH (5.0-8.0) Ur Specific [place] (1.005-1.025) Urine Protein (NEG-TRACE) MG/DL Urine Glucose (UA) (NEG) MG/DL Urine Ketones (NEG) MG/DL Urine Blood (NEG) Urine Nitrite (NEG) Ur Leukocyte Esterase (NEG) Urine RBC (0) /HPF Urine WBC (0-4) /HPF Ur Squamous Epith Cells /LPF Urine Bacteria /LPF Salicylates (15-30) mg/dL Urine Opiates Screen (Not Detect) Urine Fentanyl Screen (Not Detect) Acetaminophen (<30) mcg/mL Ur Barbiturates Screen (Not Detect) Ur Phencyclidine Scrn (Not Detect) Ur Amphetamines Screen (Not Detect) U Benzodiazepines Scrn (Not Detect) Urine Cocaine Screen (Not Detect) U Marijuana (THC) Screen (Not Detect) Ethyl Alcohol mg/dL Acetone, Qual (Negative) COVID-19 (RANJIT) (Negative) COVID-19 Clin Com 08/17/21 08/17/21 08/17/21 Range/Units 19:21 19:21 19:22 WBC (4.8-10.8) X10*3/uL RBC (4.20-5.50) X10*6/uL Hgb (12.0-16.0) g/dl Hct (37.0-47.0) % MCV (80.0-98.0) fL MCH (27.0-33.0) pg MCHC (31.0-35.0) g/dl RDW (11.0-16.0) % Plt Count (160-400) X10*3/uL MPV (9.4-12.3) fL Immature Gran % (Auto) (0.0-0.4) % Neut % (Auto) (45-73) % Lymph % (Auto) (20-40) % Nance % (Auto) (2-11) % Eos % (Auto) (0-4) % Baso % (Auto) (0-2) % Lymph # (Auto) (1.2-4.9) X10*3/uL Nance # (Auto) (0.1-1.2) X10*3/uL Eos # (Auto) (0.0-0.4) X10*3/uL Baso # (Auto) (0.0-0.2) X10*3/uL Abs Immat Gran (auto) (0.00-0.03) X10*3/uL Absolute Neuts (auto) (2.0-8.3) x10*3/uL Absolute Nucleated RBC (0.0-0.012) X10*3/uL Nucleated RBC % (auto) (0.0-0.2) /100WBC VBG pH (7.32-7.43) VBG pCO2 mmHg VBG pO2 mmHg VBG HCO3 (22-26) mmol/L VBG O2 Saturation % VBG Base Excess mmol/L Sodium (135-145) mmol/L Potassium (3.3-5.1) mmol/L Chloride (96-108) mmol/L Carbon Dioxide (22-29) mmol/L Anion Gap (12-20) BUN (9-16) mg/dL Creatinine (0.5-1.4) mg/dL Estim Creat Clear Calc Estimated GFR POC Glucose (60-115) mg/dL Random Glucose (60-115) mg/dL Lactic Acid (0.5-2.0) mmol/L Calcium (8.4-10.2) mg/dL Magnesium (1.6-2.6) mg/dL Total Bilirubin (0.0-1.0) mg/dL AST (5-31) U/L ALT (0-31) U/L Alkaline Phosphatase (39-117) U/L Ammonia (13-55) umol/L Total Creatine Kinase (26-140) U/L Troponin I High Sens 4.8 (<3.5-17.0) ng/L Total Protein (6.5-8.0) g/dL Albumin (3.5-5.0) g/dL Lipase (8-78) U/L Urine Color Urine Appearance Urine pH (5.0-8.0) Ur Specific [place] (1.005-1.025) Urine Protein (NEG-TRACE) MG/DL Urine Glucose (UA) (NEG) MG/DL Urine Ketones (NEG) MG/DL Urine Blood (NEG) Urine Nitrite (NEG) Ur Leukocyte Esterase (NEG) Urine RBC (0) /HPF Urine WBC (0-4) /HPF Ur Squamous Epith Cells /LPF Urine Bacteria /LPF Salicylates < 5.0 L (15-30) mg/dL Urine Opiates Screen (Not Detect) Urine Fentanyl Screen (Not Detect) Acetaminophen < 1 (<30) mcg/mL Ur Barbiturates Screen (Not Detect) Ur Phencyclidine Scrn (Not Detect) Ur Amphetamines Screen (Not Detect) U Benzodiazepines Scrn (Not Detect) Urine Cocaine Screen (Not Detect) U Marijuana (THC) Screen (Not Detect) Ethyl Alcohol mg/dL Acetone, Qual (Negative) COVID-19 (RANJIT) Negative (Negative) COVID-19 Clin Com See Note 08/17/21 08/17/21 08/18/21 Range/Units 20:01 20:01 00:07 WBC (4.8-10.8) X10*3/uL RBC (4.20-5.50) X10*6/uL Hgb (12.0-16.0) g/dl Hct (37.0-47.0) % MCV (80.0-98.0) fL MCH (27.0-33.0) pg MCHC (31.0-35.0) g/dl RDW (11.0-16.0) % Plt Count (160-400) X10*3/uL MPV (9.4-12.3) fL Immature Gran % (Auto) (0.0-0.4) % Neut % (Auto) (45-73) % Lymph % (Auto) (20-40) % Nance % (Auto) (2-11) % Eos % (Auto) (0-4) % Baso % (Auto) (0-2) % Lymph # (Auto) (1.2-4.9) X10*3/uL Nance # (Auto) (0.1-1.2) X10*3/uL Eos # (Auto) (0.0-0.4) X10*3/uL Baso # (Auto) (0.0-0.2) X10*3/uL Abs Immat Gran (auto) (0.00-0.03) X10*3/uL Absolute Neuts (auto) (2.0-8.3) x10*3/uL Absolute Nucleated RBC (0.0-0.012) X10*3/uL Nucleated RBC % (auto) (0.0-0.2) /100WBC VBG pH (7.32-7.43) VBG pCO2 mmHg VBG pO2 mmHg VBG HCO3 (22-26) mmol/L VBG O2 Saturation % VBG Base Excess mmol/L Sodium (135-145) mmol/L Potassium (3.3-5.1) mmol/L Chloride (96-108) mmol/L Carbon Dioxide (22-29) mmol/L Anion Gap (12-20) BUN (9-16) mg/dL Creatinine (0.5-1.4) mg/dL Estim Creat Clear Calc Estimated GFR POC Glucose (60-115) mg/dL Random Glucose (60-115) mg/dL Lactic Acid (0.5-2.0) mmol/L Calcium (8.4-10.2) mg/dL Magnesium (1.6-2.6) mg/dL Total Bilirubin (0.0-1.0) mg/dL AST (5-31) U/L ALT (0-31) U/L Alkaline Phosphatase (39-117) U/L Ammonia (13-55) umol/L Total Creatine Kinase (26-140) U/L Troponin I High Sens 9.2 D (<3.5-17.0) ng/L Total Protein (6.5-8.0) g/dL Albumin (3.5-5.0) g/dL Lipase (8-78) U/L Urine Color YELLOW Urine Appearance CLEAR Urine pH 6.5 (5.0-8.0) Ur Specific [place] 1.020 (1.005-1.025) Urine Protein NEG (NEG-TRACE) MG/DL Urine Glucose (UA) NEG (NEG) MG/DL Urine Ketones >=80 (NEG) MG/DL Urine Blood NEG (NEG) Urine Nitrite NEG (NEG) Ur Leukocyte Esterase NEG (NEG) Urine RBC 0-2 (0) /HPF Urine WBC 0 (0-4) /HPF Ur Squamous Epith TRACE /LPF Cells Urine Bacteria NONE /LPF Salicylates (15-30) mg/dL Urine Opiates Screen Not Detected (Not Detect) Urine Fentanyl Screen Not Detected (Not Detect) Acetaminophen (<30) mcg/mL Ur Barbiturates Screen Not Detected (Not Detect) Ur Phencyclidine Scrn Not Detected (Not Detect) Ur Amphetamines Screen Not Detected (Not Detect) U Benzodiazepines Scrn Not Detected (Not Detect) Urine Cocaine Screen Not Detected (Not Detect) U Marijuana (THC) Not Detected (Not Detect) Screen Ethyl Alcohol mg/dL Acetone, Qual (Negative) COVID-19 (RANJIT) (Negative) COVID-19 Clin Com 08/18/21 08/18/21 08/18/21 Range/Units 00:07 00:07 00:07 WBC (4.8-10.8) X10*3/uL RBC (4.20-5.50) X10*6/uL Hgb (12.0-16.0) g/dl Hct (37.0-47.0) % MCV (80.0-98.0) fL MCH (27.0-33.0) pg MCHC (31.0-35.0) g/dl RDW (11.0-16.0) % Plt Count (160-400) X10*3/uL MPV (9.4-12.3) fL Immature Gran % (Auto) (0.0-0.4) % Neut % (Auto) (45-73) % Lymph % (Auto) (20-40) % Nance % (Auto) (2-11) % Eos % (Auto) (0-4) % Baso % (Auto) (0-2) % Lymph # (Auto) (1.2-4.9) X10*3/uL Nance # (Auto) (0.1-1.2) X10*3/uL Eos # (Auto) (0.0-0.4) X10*3/uL Baso # (Auto) (0.0-0.2) X10*3/uL Abs Immat Gran (auto) (0.00-0.03) X10*3/uL Absolute Neuts (auto) (2.0-8.3) x10*3/uL Absolute Nucleated RBC (0.0-0.012) X10*3/uL Nucleated RBC % (auto) (0.0-0.2) /100WBC VBG pH (7.32-7.43) VBG pCO2 mmHg VBG pO2 mmHg VBG HCO3 (22-26) mmol/L VBG O2 Saturation % VBG Base Excess mmol/L Sodium (135-145) mmol/L Potassium (3.3-5.1) mmol/L Chloride (96-108) mmol/L Carbon Dioxide (22-29) mmol/L Anion Gap (12-20) BUN (9-16) mg/dL Creatinine (0.5-1.4) mg/dL Estim Creat Clear Calc Estimated GFR POC Glucose (60-115) mg/dL Random Glucose (60-115) mg/dL Lactic Acid (0.5-2.0) mmol/L Calcium (8.4-10.2) mg/dL Magnesium (1.6-2.6) mg/dL Total Bilirubin (0.0-1.0) mg/dL AST (5-31) U/L ALT (0-31) U/L Alkaline Phosphatase (39-117) U/L Ammonia 23 (13-55) umol/L Total Creatine Kinase (26-140) U/L Troponin I High Sens (<3.5-17.0) ng/L Total Protein (6.5-8.0) g/dL Albumin (3.5-5.0) g/dL Lipase (8-78) U/L Urine Color Urine Appearance Urine pH (5.0-8.0) Ur Specific [place] (1.005-1.025) Urine Protein (NEG-TRACE) MG/DL Urine Glucose (UA) (NEG) MG/DL Urine Ketones (NEG) MG/DL Urine Blood (NEG) Urine Nitrite (NEG) Ur Leukocyte Esterase (NEG) Urine RBC (0) /HPF Urine WBC (0-4) /HPF Ur Squamous Epith Cells /LPF Urine Bacteria /LPF Salicylates (15-30) mg/dL Urine Opiates Screen (Not Detect) Urine Fentanyl Screen (Not Detect) Acetaminophen (<30) mcg/mL Ur Barbiturates Screen (Not Detect) Ur Phencyclidine Scrn (Not Detect) Ur Amphetamines Screen (Not Detect) U Benzodiazepines Scrn (Not Detect) Urine Cocaine Screen (Not Detect) U Marijuana (THC) Screen (Not Detect) Ethyl Alcohol < 10 mg/dL Acetone, Qual Negative (Negative) COVID-19 (RANJIT) (Negative) COVID-19 Clin Com 08/18/21 08/18/21 08/18/21 Range/Units 00:11 03:16 09:38 WBC (4.8-10.8) X10*3/uL RBC (4.20-5.50) X10*6/uL Hgb (12.0-16.0) g/dl Hct (37.0-47.0) % MCV (80.0-98.0) fL MCH (27.0-33.0) pg MCHC (31.0-35.0) g/dl RDW (11.0-16.0) % Plt Count (160-400) X10*3/uL MPV (9.4-12.3) fL Immature Gran % (Auto) (0.0-0.4) % Neut % (Auto) (45-73) % Lymph % (Auto) (20-40) % Nance % (Auto) (2-11) % Eos % (Auto) (0-4) % Baso % (Auto) (0-2) % Lymph # (Auto) (1.2-4.9) X10*3/uL Nance # (Auto) (0.1-1.2) X10*3/uL Eos # (Auto) (0.0-0.4) X10*3/uL Baso # (Auto) (0.0-0.2) X10*3/uL Abs Immat Gran (auto) (0.00-0.03) X10*3/uL Absolute Neuts (auto) (2.0-8.3) x10*3/uL Absolute Nucleated RBC (0.0-0.012) X10*3/uL Nucleated RBC % (auto) (0.0-0.2) /100WBC VBG pH 7.44 H (7.32-7.43) VBG pCO2 37 mmHg VBG pO2 61 mmHg VBG HCO3 25 (22-26) mmol/L VBG O2 Saturation 87.0 % VBG Base Excess 1.8 mmol/L Sodium (135-145) mmol/L Potassium (3.3-5.1) mmol/L Chloride (96-108) mmol/L Carbon Dioxide (22-29) mmol/L Anion Gap (12-20) BUN (9-16) mg/dL Creatinine (0.5-1.4) mg/dL Estim Creat Clear Calc Estimated GFR POC Glucose 88 (60-115) mg/dL Random Glucose (60-115) mg/dL Lactic Acid (0.5-2.0) mmol/L Calcium (8.4-10.2) mg/dL Magnesium (1.6-2.6) mg/dL Total Bilirubin (0.0-1.0) mg/dL AST (5-31) U/L ALT (0-31) U/L Alkaline Phosphatase (39-117) U/L Ammonia (13-55) umol/L Total Creatine Kinase (26-140) U/L Troponin I High Sens 9.4 (<3.5-17.0) ng/L Total Protein (6.5-8.0) g/dL Albumin (3.5-5.0) g/dL Lipase (8-78) U/L Urine Color Urine Appearance Urine pH (5.0-8.0) Ur Specific [place] (1.005-1.025) Urine Protein (NEG-TRACE) MG/DL Urine Glucose (UA) (NEG) MG/DL Urine Ketones (NEG) MG/DL Urine Blood (NEG) Urine Nitrite (NEG) Ur Leukocyte Esterase (NEG) Urine RBC (0) /HPF Urine WBC (0-4) /HPF Ur Squamous Epith Cells /LPF Urine Bacteria /LPF Salicylates (15-30) mg/dL Urine Opiates Screen (Not Detect) Urine Fentanyl Screen (Not Detect) Acetaminophen (<30) mcg/mL Ur Barbiturates Screen (Not Detect) Ur Phencyclidine Scrn (Not Detect) Ur Amphetamines Screen (Not Detect) U Benzodiazepines Scrn (Not Detect) Urine Cocaine Screen (Not Detect) U Marijuana (THC) Screen (Not Detect) Ethyl Alcohol mg/dL Acetone, Qual (Negative) COVID-19 (RANJIT) (Negative) COVID-19 Clin Com <BRIGHT Ramos - Last Filed: 08/18/21 03:54> Lab Results 08/17/21 08/17/21 08/17/21 Range/Units 19:21 19:21 19:21 WBC 4.7 L (4.8-10.8) X10*3/uL RBC 3.22 L (4.20-5.50) X10*6/uL Hgb 10.2 L (12.0-16.0) g/dl Hct 30.4 L (37.0-47.0) % MCV 94.4 (80.0-98.0) fL MCH 31.7 (27.0-33.0) pg MCHC 33.6 (31.0-35.0) g/dl RDW 15.4 (11.0-16.0) % Plt Count 181 D (160-400) X10*3/uL MPV 8.9 L (9.4-12.3) fL Immature Gran % (Auto) 0.4 (0.0-0.4) % Neut % (Auto) 86.0 H (45-73) % Lymph % (Auto) 8.3 L (20-40) % Nance % (Auto) 5.1 (2-11) % Eos % (Auto) 0.2 (0-4) % Baso % (Auto) 0.0 (0-2) % Lymph # (Auto) 0.4 L (1.2-4.9) X10*3/uL Nance # (Auto) 0.2 (0.1-1.2) X10*3/uL Eos # (Auto) 0.0 (0.0-0.4) X10*3/uL Baso # (Auto) 0.0 (0.0-0.2) X10*3/uL Abs Immat Gran (auto) 0.02 (0.00-0.03) X10*3/uL Absolute Neuts (auto) 4.1 (2.0-8.3) x10*3/uL Absolute Nucleated RBC 0.000 (0.0-0.012) X10*3/uL Nucleated RBC % (auto) 0.0 (0.0-0.2) /100WBC VBG pH (7.32-7.43) VBG pCO2 mmHg VBG pO2 mmHg VBG HCO3 (22-26) mmol/L VBG O2 Saturation % VBG Base Excess mmol/L Sodium 138 (135-145) mmol/L Potassium 4.1 (3.3-5.1) mmol/L Chloride 102 (96-108) mmol/L Carbon Dioxide 27 (22-29) mmol/L Anion Gap 13 (12-20) BUN 8 L (9-16) mg/dL Creatinine 0.64 (0.5-1.4) mg/dL Estim Creat Clear Calc 83.6 Estimated GFR > 60 POC Glucose (60-115) mg/dL Random Glucose 143 H (60-115) mg/dL Lactic Acid 1.1 (0.5-2.0) mmol/L Calcium 9.3 (8.4-10.2) mg/dL Magnesium 1.6 (1.6-2.6) mg/dL Total Bilirubin 0.8 (0.0-1.0) mg/dL AST 24 (5-31) U/L ALT 17 (0-31) U/L Alkaline Phosphatase 93 (39-117) U/L Ammonia (13-55) umol/L Total Creatine Kinase 66 (26-140) U/L Troponin I High Sens (<3.5-17.0) ng/L Total Protein 6.9 (6.5-8.0) g/dL Albumin 3.8 (3.5-5.0) g/dL Lipase 5 L (8-78) U/L Urine Color Urine Appearance Urine pH (5.0-8.0) Ur Specific [place] (1.005-1.025) Urine Protein (NEG-TRACE) MG/DL Urine Glucose (UA) (NEG) MG/DL Urine Ketones (NEG) MG/DL Urine Blood (NEG) Urine Nitrite (NEG) Ur Leukocyte Esterase (NEG) Urine RBC (0) /HPF Urine WBC (0-4) /HPF Ur Squamous Epith Cells /LPF Urine Bacteria /LPF Salicylates (15-30) mg/dL Urine Opiates Screen (Not Detect) Urine Fentanyl Screen (Not Detect) Acetaminophen (<30) mcg/mL Ur Barbiturates Screen (Not Detect) Ur Phencyclidine Scrn (Not Detect) Ur Amphetamines Screen (Not Detect) U Benzodiazepines Scrn (Not Detect) Urine Cocaine Screen (Not Detect) U Marijuana (THC) Screen (Not Detect) Ethyl Alcohol mg/dL Acetone, Qual (Negative) COVID-19 (RANJIT) (Negative) COVID-19 Clin Com 08/17/21 08/17/21 08/17/21 Range/Units 19:21 19:21 19:22 WBC (4.8-10.8) X10*3/uL RBC (4.20-5.50) X10*6/uL Hgb (12.0-16.0) g/dl Hct (37.0-47.0) % MCV (80.0-98.0) fL MCH (27.0-33.0) pg MCHC (31.0-35.0) g/dl RDW (11.0-16.0) % Plt Count (160-400) X10*3/uL MPV (9.4-12.3) fL Immature Gran % (Auto) (0.0-0.4) % Neut % (Auto) (45-73) % Lymph % (Auto) (20-40) % Nance % (Auto) (2-11) % Eos % (Auto) (0-4) % Baso % (Auto) (0-2) % Lymph # (Auto) (1.2-4.9) X10*3/uL Nance # (Auto) (0.1-1.2) X10*3/uL Eos # (Auto) (0.0-0.4) X10*3/uL Baso # (Auto) (0.0-0.2) X10*3/uL Abs Immat Gran (auto) (0.00-0.03) X10*3/uL Absolute Neuts (auto) (2.0-8.3) x10*3/uL Absolute Nucleated RBC (0.0-0.012) X10*3/uL Nucleated RBC % (auto) (0.0-0.2) /100WBC VBG pH (7.32-7.43) VBG pCO2 mmHg VBG pO2 mmHg VBG HCO3 (22-26) mmol/L VBG O2 Saturation % VBG Base Excess mmol/L Sodium (135-145) mmol/L Potassium (3.3-5.1) mmol/L Chloride (96-108) mmol/L Carbon Dioxide (22-29) mmol/L Anion Gap (12-20) BUN (9-16) mg/dL Creatinine (0.5-1.4) mg/dL Estim Creat Clear Calc Estimated GFR POC Glucose (60-115) mg/dL Random Glucose (60-115) mg/dL Lactic Acid (0.5-2.0) mmol/L Calcium (8.4-10.2) mg/dL Magnesium (1.6-2.6) mg/dL Total Bilirubin (0.0-1.0) mg/dL AST (5-31) U/L ALT (0-31) U/L Alkaline Phosphatase (39-117) U/L Ammonia (13-55) umol/L Total Creatine Kinase (26-140) U/L Troponin I High Sens 4.8 (<3.5-17.0) ng/L Total Protein (6.5-8.0) g/dL Albumin (3.5-5.0) g/dL Lipase (8-78) U/L Urine Color Urine Appearance Urine pH (5.0-8.0) Ur Specific [place] (1.005-1.025) Urine Protein (NEG-TRACE) MG/DL Urine Glucose (UA) (NEG) MG/DL Urine Ketones (NEG) MG/DL Urine Blood (NEG) Urine Nitrite (NEG) Ur Leukocyte Esterase (NEG) Urine RBC (0) /HPF Urine WBC (0-4) /HPF Ur Squamous Epith Cells /LPF Urine Bacteria /LPF Salicylates < 5.0 L (15-30) mg/dL Urine Opiates Screen (Not Detect) Urine Fentanyl Screen (Not Detect) Acetaminophen < 1 (<30) mcg/mL Ur Barbiturates Screen (Not Detect) Ur Phencyclidine Scrn (Not Detect) Ur Amphetamines Screen (Not Detect) U Benzodiazepines Scrn (Not Detect) Urine Cocaine Screen (Not Detect) U Marijuana (THC) Screen (Not Detect) Ethyl Alcohol mg/dL Acetone, Qual (Negative) COVID-19 (RANJIT) Negative (Negative) COVID-19 Clin Com See Note 08/17/21 08/17/21 08/18/21 Range/Units 20:01 20:01 00:07 WBC (4.8-10.8) X10*3/uL RBC (4.20-5.50) X10*6/uL Hgb (12.0-16.0) g/dl Hct (37.0-47.0) % MCV (80.0-98.0) fL MCH (27.0-33.0) pg MCHC (31.0-35.0) g/dl RDW (11.0-16.0) % Plt Count (160-400) X10*3/uL MPV (9.4-12.3) fL Immature Gran % (Auto) (0.0-0.4) % Neut % (Auto) (45-73) % Lymph % (Auto) (20-40) % Nance % (Auto) (2-11) % Eos % (Auto) (0-4) % Baso % (Auto) (0-2) % Lymph # (Auto) (1.2-4.9) X10*3/uL Nance # (Auto) (0.1-1.2) X10*3/uL Eos # (Auto) (0.0-0.4) X10*3/uL Baso # (Auto) (0.0-0.2) X10*3/uL Abs Immat Gran (auto) (0.00-0.03) X10*3/uL Absolute Neuts (auto) (2.0-8.3) x10*3/uL Absolute Nucleated RBC (0.0-0.012) X10*3/uL Nucleated RBC % (auto) (0.0-0.2) /100WBC VBG pH (7.32-7.43) VBG pCO2 mmHg VBG pO2 mmHg VBG HCO3 (22-26) mmol/L VBG O2 Saturation % VBG Base Excess mmol/L Sodium (135-145) mmol/L Potassium (3.3-5.1) mmol/L Chloride (96-108) mmol/L Carbon Dioxide (22-29) mmol/L Anion Gap (12-20) BUN (9-16) mg/dL Creatinine (0.5-1.4) mg/dL Estim Creat Clear Calc Estimated GFR POC Glucose (60-115) mg/dL Random Glucose (60-115) mg/dL Lactic Acid (0.5-2.0) mmol/L Calcium (8.4-10.2) mg/dL Magnesium (1.6-2.6) mg/dL Total Bilirubin (0.0-1.0) mg/dL AST (5-31) U/L ALT (0-31) U/L Alkaline Phosphatase (39-117) U/L Ammonia (13-55) umol/L Total Creatine Kinase (26-140) U/L Troponin I High Sens 9.2 D (<3.5-17.0) ng/L Total Protein (6.5-8.0) g/dL Albumin (3.5-5.0) g/dL Lipase (8-78) U/L Urine Color YELLOW Urine Appearance CLEAR Urine pH 6.5 (5.0-8.0) Ur Specific [place] 1.020 (1.005-1.025) Urine Protein NEG (NEG-TRACE) MG/DL Urine Glucose (UA) NEG (NEG) MG/DL Urine Ketones >=80 (NEG) MG/DL Urine Blood NEG (NEG) Urine Nitrite NEG (NEG) Ur Leukocyte Esterase NEG (NEG) Urine RBC 0-2 (0) /HPF Urine WBC 0 (0-4) /HPF Ur Squamous Epith TRACE /LPF Cells Urine Bacteria NONE /LPF Salicylates (15-30) mg/dL Urine Opiates Screen Not Detected (Not Detect) Urine Fentanyl Screen Not Detected (Not Detect) Acetaminophen (<30) mcg/mL Ur Barbiturates Screen Not Detected (Not Detect) Ur Phencyclidine Scrn Not Detected (Not Detect) Ur Amphetamines Screen Not Detected (Not Detect) U Benzodiazepines Scrn Not Detected (Not Detect) Urine Cocaine Screen Not Detected (Not Detect) U Marijuana (THC) Not Detected (Not Detect) Screen Ethyl Alcohol mg/dL Acetone, Qual (Negative) COVID-19 (RANJIT) (Negative) COVID-19 Clin Com 08/18/21 08/18/21 08/18/21 Range/Units 00:07 00:07 00:07 WBC (4.8-10.8) X10*3/uL RBC (4.20-5.50) X10*6/uL Hgb (12.0-16.0) g/dl Hct (37.0-47.0) % MCV (80.0-98.0) fL MCH (27.0-33.0) pg MCHC (31.0-35.0) g/dl RDW (11.0-16.0) % Plt Count (160-400) X10*3/uL MPV (9.4-12.3) fL Immature Gran % (Auto) (0.0-0.4) % Neut % (Auto) (45-73) % Lymph % (Auto) (20-40) % Nance % (Auto) (2-11) % Eos % (Auto) (0-4) % Baso % (Auto) (0-2) % Lymph # (Auto) (1.2-4.9) X10*3/uL Nance # (Auto) (0.1-1.2) X10*3/uL Eos # (Auto) (0.0-0.4) X10*3/uL Baso # (Auto) (0.0-0.2) X10*3/uL Abs Immat Gran (auto) (0.00-0.03) X10*3/uL Absolute Neuts (auto) (2.0-8.3) x10*3/uL Absolute Nucleated RBC (0.0-0.012) X10*3/uL Nucleated RBC % (auto) (0.0-0.2) /100WBC VBG pH (7.32-7.43) VBG pCO2 mmHg VBG pO2 mmHg VBG HCO3 (22-26) mmol/L VBG O2 Saturation % VBG Base Excess mmol/L Sodium (135-145) mmol/L Potassium (3.3-5.1) mmol/L Chloride (96-108) mmol/L Carbon Dioxide (22-29) mmol/L Anion Gap (12-20) BUN (9-16) mg/dL Creatinine (0.5-1.4) mg/dL Estim Creat Clear Calc Estimated GFR POC Glucose (60-115) mg/dL Random Glucose (60-115) mg/dL Lactic Acid (0.5-2.0) mmol/L Calcium (8.4-10.2) mg/dL Magnesium (1.6-2.6) mg/dL Total Bilirubin (0.0-1.0) mg/dL AST (5-31) U/L ALT (0-31) U/L Alkaline Phosphatase (39-117) U/L Ammonia 23 (13-55) umol/L Total Creatine Kinase (26-140) U/L Troponin I High Sens (<3.5-17.0) ng/L Total Protein (6.5-8.0) g/dL Albumin (3.5-5.0) g/dL Lipase (8-78) U/L Urine Color Urine Appearance Urine pH (5.0-8.0) Ur Specific [place] (1.005-1.025) Urine Protein (NEG-TRACE) MG/DL Urine Glucose (UA) (NEG) MG/DL Urine Ketones (NEG) MG/DL Urine Blood (NEG) Urine Nitrite (NEG) Ur Leukocyte Esterase (NEG) Urine RBC (0) /HPF Urine WBC (0-4) /HPF Ur Squamous Epith Cells /LPF Urine Bacteria /LPF Salicylates (15-30) mg/dL Urine Opiates Screen (Not Detect) Urine Fentanyl Screen (Not Detect) Acetaminophen (<30) mcg/mL Ur Barbiturates Screen (Not Detect) Ur Phencyclidine Scrn (Not Detect) Ur Amphetamines Screen (Not Detect) U Benzodiazepines Scrn (Not Detect) Urine Cocaine Screen (Not Detect) U Marijuana (THC) Screen (Not Detect) Ethyl Alcohol < 10 mg/dL Acetone, Qual Negative (Negative) COVID-19 (RANJIT) (Negative) COVID-19 Clin Com 08/18/21 08/18/21 08/18/21 Range/Units 00:11 03:16 09:38 WBC (4.8-10.8) X10*3/uL RBC (4.20-5.50) X10*6/uL Hgb (12.0-16.0) g/dl Hct (37.0-47.0) % MCV (80.0-98.0) fL MCH (27.0-33.0) pg MCHC (31.0-35.0) g/dl RDW (11.0-16.0) % Plt Count (160-400) X10*3/uL MPV (9.4-12.3) fL Immature Gran % (Auto) (0.0-0.4) % Neut % (Auto) (45-73) % Lymph % (Auto) (20-40) % Nance % (Auto) (2-11) % Eos % (Auto) (0-4) % Baso % (Auto) (0-2) % Lymph # (Auto) (1.2-4.9) X10*3/uL Nance # (Auto) (0.1-1.2) X10*3/uL Eos # (Auto) (0.0-0.4) X10*3/uL Baso # (Auto) (0.0-0.2) X10*3/uL Abs Immat Gran (auto) (0.00-0.03) X10*3/uL Absolute Neuts (auto) (2.0-8.3) x10*3/uL Absolute Nucleated RBC (0.0-0.012) X10*3/uL Nucleated RBC % (auto) (0.0-0.2) /100WBC VBG pH 7.44 H (7.32-7.43) VBG pCO2 37 mmHg VBG pO2 61 mmHg VBG HCO3 25 (22-26) mmol/L VBG O2 Saturation 87.0 % VBG Base Excess 1.8 mmol/L Sodium (135-145) mmol/L Potassium (3.3-5.1) mmol/L Chloride (96-108) mmol/L Carbon Dioxide (22-29) mmol/L Anion Gap (12-20) BUN (9-16) mg/dL Creatinine (0.5-1.4) mg/dL Estim Creat Clear Calc Estimated GFR POC Glucose 88 (60-115) mg/dL Random Glucose (60-115) mg/dL Lactic Acid (0.5-2.0) mmol/L Calcium (8.4-10.2) mg/dL Magnesium (1.6-2.6) mg/dL Total Bilirubin (0.0-1.0) mg/dL AST (5-31) U/L ALT (0-31) U/L Alkaline Phosphatase (39-117) U/L Ammonia (13-55) umol/L Total Creatine Kinase (26-140) U/L Troponin I High Sens 9.4 (<3.5-17.0) ng/L Total Protein (6.5-8.0) g/dL Albumin (3.5-5.0) g/dL Lipase (8-78) U/L Urine Color Urine Appearance Urine pH (5.0-8.0) Ur Specific [place] (1.005-1.025) Urine Protein (NEG-TRACE) MG/DL Urine Glucose (UA) (NEG) MG/DL Urine Ketones (NEG) MG/DL Urine Blood (NEG) Urine Nitrite (NEG) Ur Leukocyte Esterase (NEG) Urine RBC (0) /HPF Urine WBC (0-4) /HPF Ur Squamous Epith Cells /LPF Urine Bacteria /LPF Salicylates (15-30) mg/dL Urine Opiates Screen (Not Detect) Urine Fentanyl Screen (Not Detect) Acetaminophen (<30) mcg/mL Ur Barbiturates Screen (Not Detect) Ur Phencyclidine Scrn (Not Detect) Ur Amphetamines Screen (Not Detect) U Benzodiazepines Scrn (Not Detect) Urine Cocaine Screen (Not Detect) U Marijuana (THC) Screen (Not Detect) Ethyl Alcohol mg/dL Acetone, Qual (Negative) COVID-19 (RANJIT) (Negative) COVID-19 Clin Com <BRIGHT Hernandez - Last Filed: 08/18/21 10:35> Critical Care Time Critical Care Time Critical Care Time: No <BRIGHT Ramos Last Filed: 08/18/21 03:54> Discharge Plan Discharge Clinical Impression: Intractable vomiting, Elevated troponin, Weakness <BRIGHT Ramos Last Filed: 08/18/21 03:54> Patient Disposition: Still a Patient <BRIGHT Ramos Last Filed: 08/18/21 03:54> Prescriptions: No Action budesonide 0.5 mg/2 mL suspension for nebulization 0.5 mg inhalation BID Qty: 120 3RF fluticasone propionate 50 mcg/actuation spray,suspension 1 spray intranasal DAILY Qty: 15.8 2RF Nucala 100 mg/mL syringe 100 mg subcut Q4W 30 Days Qty: 2 11RF pantoprazole 20 mg tablet,delayed release (DR/EC) 20 mg PO DAILY 30 Days Qty: 30 6RF tizanidine 2 mg tablet 2 mg PO Q8H PRN (Reason: muscle spasticity) 30 Days Qty: 60 3RF trazodone 100 mg tablet 100 mg PO .COMPLEX 30 Days Qty: 30 6RF Rx Instructions: 100 mg PO; 100 mg PO for difficulty with sleep due to anxiety and depression prednisone 20 mg tablet 40 mg PO ONCE Qty: 10 0RF Rx Instructions: 2 tabs per day for 4 dys then 1 tab per day for 2 days doxycycline hyclate 100 mg capsule 100 mg PO BID Qty: 14 0RF cefuroxime axetil 500 mg tablet 500 mg PO BID 7 Days Qty: 14 0RF ondansetron HCl 4 mg tablet PO 0RF gabapentin 800 mg tablet PO 0RF cimetidine 200 mg tablet PO 0RF buspirone 15 mg tablet PO 0RF duloxetine 60 mg capsule,delayed release(DR/EC) PO 0RF cephalexin 500 mg capsule 500 mg PO Q12H 7 Days Qty: 14 0RF doxycycline hyclate 100 mg capsule 100 mg PO BID 7 Days Qty: 14 0RF montelukast [Singulair] 10 mg tablet 10 mg PO BEDTIME 30 Days Qty: 30 11RF albuterol sulfate 2.5 mg /3 mL (0.083 %) solution for nebulization 2.5 mg inhalation Q6H PRN (Reason: shortness of breath or wheezing) 30 Days Qty: 240 11RF Robitussin Cough-Chest Lee DM 5-100 mg/5 mL liquid 10 ml PO Q4-8H PRN (Reason: cough) 14 Days Qty: 355 0RF nystatin 500,000 unit tablet 500,000 unit PO TID 10 Days Qty: 30 3RF Shingrix (PF) 50 mcg/0.5 mL suspension for reconstitution IM 0RF buprenorphine-naloxone 2-0.5 mg film sublingual 0RF pramipexole 0.125 mg tablet PO 0RF cyclobenzaprine 5 mg tablet PO 0RF Flovent HFA 110 mcg/actuation HFA aerosol inhaler 1 puff inhalation BID 30 Days Qty: 12 11RF albuterol sulfate 90 mcg/actuation HFA aerosol inhaler 2 puff inhalation Q4-6H PRN (Reason: shortness of breath or wheezing) 30 Days Qty: 6.7 11RF <BRIGHT Ramos - Last Filed: 08/18/21 03:54>
[2021-08-17 19:00] VITALS: TEMP 38.2
[2021-08-17] MEDS: 0.9 % Sodium Chloride 1,000 ML 999 ML IV (19:26)
[2021-08-17 19:30] LABS: MANUAL DIFF FLAG NO
[2021-08-17] MEDS: Acetaminophen 325 MG TABLET 650 MG PO (19:34)
[2021-08-17] MEDS: ondansetron HCL 4 MG/2 ML VIAL IVPUSH (19:34)
[2021-08-17 19:35] LABS: Eosinophils Percent Auto 0.2 % (0-4); Hematocrit 30.4 % (37.0-47.0); Hemoglobin 10.2 g/dl (12.0-16.0); Imm Gran Abs Auto 0.02 X10*3/uL (0.00-0.03); Imm Gran Pct Auto 0.4 % (0.0-0.4); Lymphocytes Absolute Auto 0.4 X10*3/uL (1.2-4.9); Lymphocytes Percent Auto 8.3 % (20-40); Mean Corpuscular HGB Conc 33.6 g/dl (31.0-35.0); Mean Corpuscular Hemoglobin 31.7 pg (27.0-33.0); Mean Corpuscular Volume 94.4 fL (80.0-98.0); Mean Platelet Volume 8.9 fL (9.4-12.3); Monocytes Absolute Auto 0.2 X10*3/uL (0.1-1.2); Monocytes Percent Auto 5.1 % (2-11); Neutrophils Absolute Auto 4.1 x10*3/uL (2.0-8.3); Platelet Count 181 X10*3/uL (160-400); Red Blood Count 3.22 X10*6/uL (4.20-5.50); Red Cell Distribution Width 15.4 % (11.0-16.0); White Blood Count 4.7 X10*3/uL (4.8-10.8)
--- NOTE | 2021-08-17 19:40 | PC.NURSE ---
PT was given PO tylenol and vomited the pills back up shortly after swallowing them. Provider notified.
[2021-08-17 19:49] LABS: Acetaminophen LAB < 1 mcg/mL (<30); Salicylate < 5.0 mg/dL (15-30)
[2021-08-17 19:49] LABS: COVID-19 Test Negative (Negative); IDNOW Serial# 9DD0AD1C; Lactic Acid 1.1 mmol/L (0.5-2.0)
[2021-08-17 19:53] LABS: Alanine Aminotransferase 17 U/L (0-31); Albumin Level 3.8 g/dL (3.5-5.0); Alkaline Phosphatase 93 U/L (39-117); Anion Gap 13 (12-20); Aspartate Amino Transferase 24 U/L (5-31); Bilirubin Total 0.8 mg/dL (0.0-1.0); Blood Urea Nitrogen 8 mg/dL (9-16); Calcium 9.3 mg/dL (8.4-10.2); Carbon Dioxide 27 mmol/L (22-29); Chloride 102 mmol/L (96-108); Creatinine Clr Calc Pharmacy 83.6; Estimated Glomerular Filt Rate > 60; Glucose Random 143 mg/dL (60-115); Magnesium 1.6 mg/dL (1.6-2.6); Potassium 4.1 mmol/L (3.3-5.1); Sodium 138 mmol/L (135-145); Total Protein 6.9 g/dL (6.5-8.0)
[2021-08-17] MEDS: Acetaminophen Supp 650 MG SUPP.RECT PR (20:02)
[2021-08-17 20:16] LABS: Appearance Urine CLEAR; Color Urine YELLOW; Glucose Urine UA NEG (NEG); Leukocyte Esterase Urine NEG (NEG); Nitrite Urine NEG (NEG); PH 6.5 (5.0-8.0); Urine Blood NEG (NEG); Urine Ketones >=80 MG/DL (NEG); Urine Protein NEG (NEG-TRACE)
[2021-08-17 20:28] LABS: Amphetamine Screen Urine Not Detected (Not Detect); Barbiturates, Urine Not Detected (Not Detect); Benzodiazepines Screen Urine Not Detected (Not Detect); Cannabinoid Screen Urine Not Detected (Not Detect); Cocaine Screen Urine Not Detected (Not Detect); Fentanyl, urine Not Detected (Not Detect); Opiate Screen Urine Not Detected (Not Detect); Phencyclidine Screen Urine Not Detected (Not Detect)
[2021-08-17 20:29] VITALS: BP 141/76; PULSE 98; RESP 16; TEMP 38; O2SAT 97
[2021-08-17 20:32] LABS: Troponin-I High Sensitivity 4.8 ng/L (<3.5-17.0)
[2021-08-17] MEDS: LORazepam 2 MG/ML VIAL 0.5 MG IM (20:46)
[2021-08-17] MEDS: Metoclopramide HCl 10 MG/2 ML VIAL IVPUSH (20:47)
[2021-08-17] MEDS: diphenhydrAMINE HCL 50 MG/ML VIAL IVPUSH (20:47)
[2021-08-17] MEDS: iohexoL 350 MG/ML 100 ML INFUS..BTL IV (21:16)
[2021-08-17 21:37] LABS: RBC Urine 0-2 /HPF (0); Squamous Epithelial Cell Urine TRACE /LPF; WBC Urine 0 /HPF (0-4)
[2021-08-17 22:00] VITALS: BP 123/58; PULSE 93; RESP 16; TEMP 37; O2SAT 95
[2021-08-17 23:52] LABS: Lipase 5 U/L (8-78)
[2021-08-18] VITALS (7 sets, daily range): BP systolic 100–130; BP diastolic 45–67; PULSE 68–102; RESP 13–20; TEMP 37–37.8; O2SAT 90–96
[2021-08-18 00:19] LABS: Venous Blood Gas Refer to POC result
[2021-08-18] MEDS: 0.9 % Sodium Chloride 1,000 ML 999 ML IV (00:19)
[2021-08-18 00:20] LABS: VBG Base Excess 1.8 mmol/L; VBG HCO3 25 mmol/L (22-26); VBG pCO2 37 mmHg; VBG pH 7.44 (7.32-7.43); VBG pO2 61 mmHg
[2021-08-18 00:24] LABS: Acetone, serum QL Negative (Negative)
[2021-08-18 00:27] LABS: Ethanol < 10 mg/dL
[2021-08-18 00:43] LABS: Troponin-I High Sensitivity 9.2 ng/L (<3.5-17.0)
--- NOTE | 2021-08-18 00:54 | ECG_ITS ---
Test Reason : REPEAT Blood Pressure : / mmHG Vent. Rate : 089 BPM Atrial Rate : 089 BPM P-R Int : 140 ms QRS Dur : 088 ms QT Int : 394 ms P-R-T Axes : 068 009 036 degrees QTc Int : 479 ms Normal sinus rhythm Normal ECG When compared with ECG of 17-AUG-2021 19:08, No significant change was found Referred By: Tammy Harding Electronically Signed By:MARILU JONAS
[2021-08-18 01:04] LABS: Ammonia 23 umol/L (13-55)
[2021-08-18 03:39] LABS: Troponin-I High Sensitivity 9.4 ng/L (<3.5-17.0)
[2021-08-18 09:41] LABS: Glucose, Whole Blood 88 mg/dL (60-115)
[2021-08-18] MEDS: Acetaminophen 325 MG TABLET 650 MG PO (11:10)
[2021-08-18 12:56] LABS: Troponin-I High Sensitivity 8.9 ng/L (<3.5-17.0)
--- NOTE | 2021-08-18 15:34 | PC.NURSE ---
PT REQUESTING ALBUTEROL O2 SAT AT 97% ON ROOM AIR RESP AWARE
[2021-08-18] MEDS: Albuterol Sulfate 90 MCG 8 GM INHALER 2 PUFF INHALE (16:11)
== END 2021-08-18 16:19 | disposition home or self-care (01) ==
PROVIDERS: Physician Assistant; Emergency Provider Emergency Medicine Emergency Medical Services
DX: R11.2 Nausea with vomiting, unspecified (principal); R77.8 Other specified abnormalities of plasma proteins; R53.1 Weakness; R53.83 Other fatigue; Z20.822 Contact with and (suspected) exposure to COVID-19; F11.20 Opioid dependence, uncomplicated; E11.9 Type 2 diabetes mellitus without complications
CPT/HCPCS: 36415; 51701; 70450; 71260; 74177; 80053; 80143; 80179; 80307; 81001; 82009; 82077; 82140; 82550; 82803; 82947; 83605; 83690; 83735; 84484; 85025; 87040; 87635; 93005; 96361; 96372; 96374; 96375; 96376; 97161; 99285; J1200; J1790; J2060; J2405; J2765; Q9967

== ENCOUNTER 2021-12-20 12:23 | Emergency (ER) | payer OTHER, SELFPAY ==
--- NOTE | ~2021-12-20 | CT_ITS ---
EXAMINATION: HEAD CT WITHOUT CONTRAST CERVICAL SPINE CT WITHOUT CONTRAST CLINICAL INFORMATION: Fall COMPARISON: None. TECHNIQUE: Contiguous axial imaging of the head was performed without the administration of IV contrast. Axial multidetector volumetric images were also performed through the cervical spine without contrast. Multiplanar reconstructed images in coronal and sagittal orientations were submitted. DOSE: 1176 mGy-cm FINDINGS: HEAD: There is no evidence of acute intracranial hemorrhage or territorial infarction. No abnormal mass-effect or midline shift. No extra-axial fluid collections. Simmons to white matter differentiation is well preserved. Commensurate prominence of the ventricles and sulci is compatible with generalized parenchymal volume loss. There is mild periventricular and subcortical white matter hypoattenuation, most likely representing microangiopathic disease. No acute calvarial fracture. The sinuses and mastoid air cells are clear. CERVICAL SPINE: Mild anterolisthesis of L3 on L4. Vertebral body heights are maintained.. No fractures of the vertebral bodies or posterior elements. . The craniocervical and atlantoaxial articulations are maintained. Cervical spondylosis present. This includes severe disc degeneration at C6-C7, moderate disc degeneration at C5-C6. Multilevel facet degeneration. There is nonspecific 5 mm sclerotic focus in T1 vertebral body. Image 5:34, 6:276. . Central canal is grossly maintained. No significant paravertebral soft tissue swelling. No suspicious thyroid findings. Mild biapical pleural parenchymal scarring. CT/CT cervical spine wo con IMPRESSION: 1. No CT evidence of acute intracranial hemorrhage or edematous territorial infarction.. 2. No acute fracture or malalignment in the cervical spine. 3. Mild anterolisthesis of C3 on C4, probably degenerative in nature. 4. Indeterminate small 5 mm sclerotic focus in the T1 vertebral body. Correlate with clinical history. Further evaluation with bone scan as clinically warranted.
--- NOTE | ~2021-12-20 | XR_ITS ---
EXAMINATION: XR CHEST CLINICAL INFORMATION: Fall. COMPARISON: None TECHNIQUE: Frontal view of the chest was obtained. FINDINGS: The lungs are fairly well-expanded and clear. The heart size is enlarged pulmonary vascularity is normal. No gross bony abnormality seen. XR/XR chest 1V IMPRESSION: Unremarkable chest exam.
[2021-12-20 13:00] VITALS: BP 111/72; PULSE 85; RESP 18; TEMP 36.7; O2SAT 95; BMI 33.5
--- NOTE | 2021-12-20 14:17 | ED_ITS ---
HPI - General Adult General Chief complaint: Fall Stated complaint: DIZZY W/FALL & HEAD STRIKE THIS AM Time Seen by Provider: 12/20/21 13:27 Source: patient and EMS Mode of arrival: EMS Limitations: no limitations History of Present Illness HPI narrative: 71 years old female came in from home for evaluation of fall. Patient has been having bilateral lower extremities edema make it difficult to ambulate, patient lives home by herself, sustained a mechanical fall this morning when she got out of bed, patient remained on the floor until EMS helped her to get up, hit her head on the floor has small hematoma on the back of her head, no neck pain. Patient otherwise declined any headache, blurry vision, chest pain, abdominal pain, shortness of breath, fever, or chills. Patient lives home alone with 2 dogs no family or friends. Patient refusing hospitalization or rehab. placement. Related Data Home Medications Medication Instructions Recorded Confirmed buspirone 15 mg tablet mg PO 04/17/20 01/09/21 cimetidine 200 mg tablet PO 04/17/20 01/09/21 duloxetine 60 mg capsule,delayed mg PO 04/17/20 01/09/21 release gabapentin 800 mg tablet PO 04/17/20 01/09/21 ondansetron HCl 4 mg tablet PO 04/17/20 01/09/21 buprenorphine 2 mg-naloxone 0.5 mg sublingual 04/26/20 01/09/21 sublingual film cyclobenzaprine 5 mg tablet mg PO 04/26/20 01/09/21 pramipexole 0.125 mg tablet mg PO 04/26/20 01/09/21 varicella-zoster glycoE [id number] IM 04/26/20 01/09/21 adj(PF) 50 mcg/0.5 mL IM susp, kit Previous Rx's Medication Instructions Recorded doxycycline hyclate 100 mg capsule 100 mg PO BID #14 caps 05/07/20 prednisone 20 mg tablet 40 mg PO ONCE asthma #10 tabs 05/07/20 budesonide 0.5 mg/2 mL suspension 0.5 mg (2 mL) inhalation BID #120 05/19/20 for nebulization mL fluticasone propionate 50 1 spray intranasal DAILY #15.8 mL 06/07/20 mcg/actuation nasal spray,suspension mepolizumab 100 mg/mL subcutaneous 100 mg subcut Q4W 30 days #2 mL 06/20/20 syringe (Nucala) cefuroxime axetil 500 mg tablet 500 mg PO BID 7 days #14 tabs 07/12/20 pantoprazole 20 mg tablet,delayed 20 mg PO DAILY 1 month #30 tabs 07/19/20 release tizanidine 2 mg tablet 2 mg PO Q8H PRN muscle spasticity 08/01/20 1 month #60 tabs albuterol sulfate 2.5 mg (3 mL) inhalation Q6H PRN 08/03/20 shortness of breath or wheezing 30 days #240 mL montelukast 10 mg tablet 10 mg PO BEDTIME 30 days #30 tabs 08/03/20 (Singulair) dextromethorphan-guaifenesin 5 10 ml PO Q4-8H PRN cough 14 days 11/06/20 mg-100 mg/5 mL oral liquid #355 mL (Robitussin Cough-Chest Congestion DM) nystatin 500,000 unit tablet 500,000 unit PO TID 10 days #30 01/09/21 tabs trazodone 100 mg tablet 100 mg PO .COMPLEX sleep 1 month 04/13/21 #30 tabs cephalexin 500 mg capsule 500 mg PO Q12H 7 days #14 caps 08/05/21 doxycycline hyclate 100 mg capsule 100 mg PO BID 7 days #14 caps 08/05/21 albuterol sulfate 90 mcg/actuation 2 puff inhalation Q4-6H PRN 08/07/21 aerosol inhaler shortness of breath or wheezing 30 days #6.7 grams fluticasone propionate 110 1 puff inhalation BID 30 days #12 08/07/21 mcg/actuation HFA aerosol inhaler grams (Flovent HFA) Allergies Allergy/AdvReac Type Severity Reaction Status Date / Time No Known Allergies Allergy Verified 08/07/21 15:02 [No Known Allergies*] Review of Systems Review of Systems: All other systems are reviewed and are negative Constitutional: Reports as per HPI and Reports no additional constitutional complaints Eyes: Reports as per HPI and Reports no additional eye complaints Reports system reviewed and no additional complaints, except as documented Cardiovascular: Reports as per HPI and Reports no additional cardiovascular complaints Respiratory: Reports as per HPI and Reports no additional respiratory complaints Gastrointestinal: Reports as per HPI and Reports no additional gastrointestinal complaints Genitourinary: Reports no additional female genitourinary complaints Musculoskeletal: Reports no additional musculoskeletal complaints Skin/Breast: Reports system reviewed and no additional complaints, except as docu Psychiatric: Reports no additional psychiatric complaints Endocrine: Reports no additional endocrine complaints Hematologic/Lymphatic: Reports no additional hematologic/lymphatic complaints Allergic/Immunologic: Reports no additional allergic/immunologic complaints Reports system reviewed and no additional complaints, except as documented and Reports Abnormal speech present [facility] Past Medical History Medical History Anxiety Asthma Asthma exacerbation Asthma-COPD overlap syndrome Chronic bronchitis COPD (chronic obstructive pulmonary disease) Depression Diabetes mellitus, type 2 Dyspnea GERD (gastroesophageal reflux disease) Pneumonitis Surgical History History of section History of shoulder surgery Family History Family History Father Cancer Mother No problems noted. Social History Social History Alcohol intake: never Patient Tobacco Use Status: Never used Tobacco Advance Directives: No Advance Directives Information Provided: No Physical Exam ED Vital Signs: Vital Signs - 24 hr 12/20/21 13:00 Temperature 98.1 F Pulse Rate 85 Respiratory Rate 18 Blood Pressure 111/72 Pulse Oximetry 95 Oxygen Delivery Method Room Air BMI result Body Mass Index 33.5 Vital signs have been reviewed as appeared to be correct. Blood pressure normal. Heart rate normal. Respiration rate normal. Temperature normal. Oxygen saturation normal. Appearance: Alert. Oriented X3. No acute distress. Head: Normal external exam. Normocephalic. Atraumatic. No Garcia signs noted. No raccoon eyes noted Eyes: PERRLA. EOMI. Conjunctiva and sclera normal. Eyelids normal. ENT: TM's Normal. Pharynx normal. Uvula midline. Moist mucous membranes. No trismus noted. No drooling noted. No muffled voice noted. Neck: Normal inspection. Neck supple. FROM. No adenopathy. Thyroid Normal. No meningeal signs. No neck mass noted. CVS: Normal heart rate and rhythm. Heart sound normal. No murmurs noted. Pulses normal throughout. Respiratory: No respiratory distress. Painless inspiration. Breath sounds normal. No wheezes/rales/rhonchi noted. Chest nontender. No accessory muscle usage noted or decreased air movement noted. Abdomen: Soft and nontender. Bowel sounds normal in all 4 quadrants. No distention noted. No organomegaly noted. No visible injury noted. Back: No CVA tenderness. Full range of motion noted. Skin: Skin warm and dry. Normal skin color. Normal skin turgor. No rashes/lesions/lacerations noted. Extremities: No lower extremity edema. Extremities exhibit normal range of motion. Extremities nontender. Neuro: Oriented X 3. Cranial nerve exam: II-XII are grossly intact No motor deficit. No sensory deficit. Reflexes normal. Course Course Course Narrative: 71-year-old female. Status post mechanical fall due to progressive bilateral lower extremity edema primary doctor was supposed to have Lasix pills to help with the patient's symptoms. Patient otherwise has no symptoms, labs are unremarkable, awaiting for CT head/C-spine the patient can be discharged home case signed out to Dr. Us. Medical Decision Making Lab Data Lab results reviewed: Yes I reviewed the patient's lab results. Result diagrams: 12/20/21 14:11 12/20/21 14:11 Labs: Lab Results 12/20/21 12/20/21 12/20/21 Range/Units 14:11 14:11 14:11 WBC 5.6 (4.8-10.8) X10*3/uL RBC 2.94 L (4.20-5.50) X10*6/uL Hgb 9.2 L (12.0-16.0) g/dl Hct 27.5 L (37.0-47.0) % MCV 93.5 (80.0-98.0) fL MCH 31.3 (27.0-33.0) pg MCHC 33.5 (31.0-35.0) g/dl RDW 15.5 (11.0-16.0) % Plt Count 159 L (160-400) X10*3/uL MPV 9.0 L (9.4-12.3) fL Immature Gran % (Auto) 1.1 H (0.0-0.4) % Neut % (Auto) 69.5 (45-73) % Lymph % (Auto) 20.5 (20-40) % Hodgeman % (Auto) 5.5 (2-11) % Eos % (Auto) 3.2 (0-4) % Baso % (Auto) 0.2 (0-2) % Lymph # (Auto) 1.2 (1.2-4.9) X10*3/uL Hodgeman # (Auto) 0.3 (0.1-1.2) X10*3/uL Eos # (Auto) 0.2 (0.0-0.4) X10*3/uL Baso # (Auto) 0.0 (0.0-0.2) X10*3/uL Abs Immat Gran (auto) 0.06 H (0.00-0.03) X10*3/uL Absolute Neuts (auto) 3.9 (2.0-8.3) x10*3/uL Absolute Nucleated RBC 0.000 (0.0-0.012) X10*3/uL Nucleated RBC % (auto) 0.0 (0.0-0.2) /100WBC Smear Tech's Comments VERIFIED Sodium 135 (135-145) mmol/L Potassium 4.3 (3.3-5.1) mmol/L Chloride 96 (96-108) mmol/L Carbon Dioxide 31 H (22-29) mmol/L Anion Gap 12 (12-20) BUN 14 D (9-16) mg/dL Creatinine 0.75 (0.5-1.4) mg/dL Estim Creat Clear Calc 69.4 Estimated GFR > 60 Random Glucose 103 (60-115) mg/dL Calcium 11.8 H D (8.4-10.2) mg/dL Total Bilirubin 0.4 (0.0-1.0) mg/dL Direct Bilirubin 0.2 (0.0-0.5) mg/dL AST 20 (5-31) U/L ALT 18 (0-31) U/L Alkaline Phosphatase 59 D (39-117) U/L Total Creatine Kinase 39 D (26-140) U/L Troponin I High Sens 3.8 D (<3.5-17.0) ng/L B-Natriuretic Peptide (<100) pg/mL Total Protein 5.6 L (6.5-8.0) g/dL Albumin 2.9 L D (3.5-5.0) g/dL Lipase < 4 L (8-78) U/L 12/20/21 Range/Units 14:11 WBC (4.8-10.8) X10*3/uL RBC (4.20-5.50) X10*6/uL Hgb (12.0-16.0) g/dl Hct (37.0-47.0) % MCV (80.0-98.0) fL MCH (27.0-33.0) pg MCHC (31.0-35.0) g/dl RDW (11.0-16.0) % Plt Count (160-400) X10*3/uL MPV (9.4-12.3) fL Immature Gran % (Auto) (0.0-0.4) % Neut % (Auto) (45-73) % Lymph % (Auto) (20-40) % Hodgeman % (Auto) (2-11) % Eos % (Auto) (0-4) % Baso % (Auto) (0-2) % Lymph # (Auto) (1.2-4.9) X10*3/uL Hodgeman # (Auto) (0.1-1.2) X10*3/uL Eos # (Auto) (0.0-0.4) X10*3/uL Baso # (Auto) (0.0-0.2) X10*3/uL Abs Immat Gran (auto) (0.00-0.03) X10*3/uL Absolute Neuts (auto) (2.0-8.3) x10*3/uL Absolute Nucleated RBC (0.0-0.012) X10*3/uL Nucleated RBC % (auto) (0.0-0.2) /100WBC Smear Tech's Comments Sodium (135-145) mmol/L Potassium (3.3-5.1) mmol/L Chloride (96-108) mmol/L Carbon Dioxide (22-29) mmol/L Anion Gap (12-20) BUN (9-16) mg/dL Creatinine (0.5-1.4) mg/dL Estim Creat Clear Calc Estimated GFR Random Glucose (60-115) mg/dL Calcium (8.4-10.2) mg/dL Total Bilirubin (0.0-1.0) mg/dL Direct Bilirubin (0.0-0.5) mg/dL AST (5-31) U/L ALT (0-31) U/L Alkaline Phosphatase (39-117) U/L Total Creatine Kinase (26-140) U/L Troponin I High Sens (<3.5-17.0) ng/L B-Natriuretic Peptide 50 (<100) pg/mL Total Protein (6.5-8.0) g/dL Albumin (3.5-5.0) g/dL Lipase (8-78) U/L Discharge Plan Discharge Clinical Impression: Accident due to mechanical fall without injury Patient Disposition: Still a Patient Instructions: Fall Prevention (ED) Prescriptions: No Action budesonide 0.5 mg/2 mL suspension for nebulization 0.5 mg inhalation BID Qty: 120 3RF fluticasone propionate 50 mcg/actuation spray,suspension 1 spray intranasal DAILY Qty: 15.8 2RF Nucala 100 mg/mL syringe 100 mg subcut Q4W 30 Days Qty: 2 11RF pantoprazole 20 mg tablet,delayed release (DR/EC) 20 mg PO DAILY 30 Days Qty: 30 6RF tizanidine 2 mg tablet 2 mg PO Q8H PRN (Reason: muscle spasticity) 30 Days Qty: 60 3RF trazodone 100 mg tablet 100 mg PO .COMPLEX 30 Days Qty: 30 6RF Rx Instructions: 100 mg PO; 100 mg PO for difficulty with sleep due to anxiety and depression prednisone 20 mg tablet 40 mg PO ONCE Qty: 10 0RF Rx Instructions: 2 tabs per day for 4 dys then 1 tab per day for 2 days doxycycline hyclate 100 mg capsule 100 mg PO BID Qty: 14 0RF cefuroxime axetil 500 mg tablet 500 mg PO BID 7 Days Qty: 14 0RF ondansetron HCl 4 mg tablet PO gabapentin 800 mg tablet PO cimetidine 200 mg tablet PO buspirone 15 mg tablet PO duloxetine 60 mg capsule,delayed release(DR/EC) PO cephalexin 500 mg capsule 500 mg PO Q12H 7 Days Qty: 14 0RF doxycycline hyclate 100 mg capsule 100 mg PO BID 7 Days Qty: 14 0RF montelukast [Singulair] 10 mg tablet 10 mg PO BEDTIME 30 Days Qty: 30 11RF albuterol sulfate 2.5 mg /3 mL (0.083 %) solution for nebulization 2.5 mg inhalation Q6H PRN (Reason: shortness of breath or wheezing) 30 Days Qty: 240 11RF Robitussin Cough-Chest Lee DM 5-100 mg/5 mL liquid 10 ml PO Q4-8H PRN (Reason: cough) 14 Days Qty: 355 0RF nystatin 500,000 unit tablet 500,000 unit PO TID 10 Days Qty: 30 3RF Shingrix (PF) 50 mcg/0.5 mL suspension for reconstitution IM buprenorphine-naloxone 2-0.5 mg film sublingual pramipexole 0.125 mg tablet PO cyclobenzaprine 5 mg tablet PO Flovent HFA 110 mcg/actuation HFA aerosol inhaler 1 puff inhalation BID 30 Days Qty: 12 11RF albuterol sulfate 90 mcg/actuation HFA aerosol inhaler 2 puff inhalation Q4-6H PRN (Reason: shortness of breath or wheezing) 30 Days Qty: 6.7 11RF Referrals: Physician,Unknown J [Primary Care Provider] -
[2021-12-20 14:29] LABS: Basophils Percent Auto 0.2 % (0-2); Eosinophils Absolute Auto 0.2 X10*3/uL (0.0-0.4); Eosinophils Percent Auto 3.2 % (0-4); Hematocrit 27.5 % (37.0-47.0); Hemoglobin 9.2 g/dl (12.0-16.0); Imm Gran Abs Auto 0.06 X10*3/uL (0.00-0.03); Imm Gran Pct Auto 1.1 % (0.0-0.4); Lymphocytes Absolute Auto 1.2 X10*3/uL (1.2-4.9); Lymphocytes Percent Auto 20.5 % (20-40); MANUAL DIFF FLAG SCAN; Mean Corpuscular HGB Conc 33.5 g/dl (31.0-35.0); Mean Corpuscular Hemoglobin 31.3 pg (27.0-33.0); Mean Corpuscular Volume 93.5 fL (80.0-98.0); Monocytes Absolute Auto 0.3 X10*3/uL (0.1-1.2); Monocytes Percent Auto 5.5 % (2-11); Neutrophils Absolute Auto 3.9 x10*3/uL (2.0-8.3); Neutrophils Percent Auto 69.5 % (45-73); Platelet Count 159 X10*3/uL (160-400); Red Blood Count 2.94 X10*6/uL (4.20-5.50); Red Cell Distribution Width 15.5 % (11.0-16.0); SCAN SMEAR FLAG 1; White Blood Count 5.6 X10*3/uL (4.8-10.8)
[2021-12-20 14:38] LABS: Alanine Aminotransferase 18 U/L (0-31); Albumin Level 2.9 g/dL (3.5-5.0); Alkaline Phosphatase 59 U/L (39-117); Anion Gap 12 (12-20); Aspartate Amino Transferase 20 U/L (5-31); Bilirubin Direct 0.2 mg/dL (0.0-0.5); Bilirubin Total 0.4 mg/dL (0.0-1.0); Blood Urea Nitrogen 14 mg/dL (9-16); Calcium 11.8 mg/dL (8.4-10.2); Carbon Dioxide 31 mmol/L (22-29); Chloride 96 mmol/L (96-108); Creatinine Clr Calc Pharmacy 69.4; Estimated Glomerular Filt Rate > 60; Glucose Random 103 mg/dL (60-115); Lipase < 4 U/L (8-78); Potassium 4.3 mmol/L (3.3-5.1); Sodium 135 mmol/L (135-145); Total Protein 5.6 g/dL (6.5-8.0)
[2021-12-20 14:40] LABS: B Type Natriuretic Peptide 50 pg/mL (<100); Troponin-I High Sensitivity 3.8 ng/L (<3.5-17.0)
[2021-12-20 14:48] LABS: SLIDE REVIEW VERIFIED
[2021-12-20 16:16] VITALS: BP 98/54; PULSE 83; RESP 13; TEMP 36.8; O2SAT 96
[2021-12-20 17:44] VITALS: BP 125/65; PULSE 85; RESP 18; O2SAT 95
--- NOTE | 2021-12-20 19:51 | MHC.CM.ED ---
Addendum entered by Cassie Costa 12/20/21 20:58: PCP Lucia Kitchen [employer] [employer]. Unable to verify Covid Vax and HCP as pt is sleeping soundly. CM will address when patient wakes. Addendum entered by Cassie Costa 12/20/21 19:56: Pt has MOLST- DNR/DNI. Original Note: CM met with patient at the request of Dr. Us. Pt fell at home. Tells CM that she did not use her walker, feels she would not have fallen if she used her walker. Pt also has a cane. PCP unknown. Unknown HCP at this time. Lives with dog. Can have services with [facility] if she needs them. Willing to have PT evaluation and home PT only. Will not go to [facility]. Pt lives alone in elderly housing. No referrals placed pending PT recommendations. CM to follow for d/c needs.
[2021-12-20 20:50] LABS: Appearance Urine HAZY; Color Urine YELLOW; Glucose Urine UA NEG (NEG); Leukocyte Esterase Urine NEG (NEG); Nitrite Urine NEG (NEG); PH 6.5 (5.0-8.0); Urine Blood NEG (NEG); Urine Ketones NEG (NEG); Urine Protein NEG (NEG-TRACE)
[2021-12-20 22:32] VITALS: BP 105/56; PULSE 84; RESP 10; TEMP 36.7; O2SAT 92
[2021-12-21] VITALS (7 sets, daily range): BP systolic 107–140; BP diastolic 53–64; PULSE 74–95; RESP 12–24; O2SAT 92–100
[2021-12-21] MEDS: Acetaminophen 325 MG TABLET 975 MG PO (00:20)
[2021-12-21] MEDS: Albuterol Sulfate (0.083%) 2.5 MG/3 ML VIAL.NEB INHALE (00:40)
--- NOTE | 2021-12-21 03:22 | PC.NURSE ---
pt c/o arm pain and headache, medicated w tylenol. pt reporting some increasing asthma symptoms - provider notified, resp to bedside for breathing treatment. pharmacy attempted med rec, but pt poor historian, attempting to contact [facility] for med rec in am per note.
--- NOTE | 2021-12-21 03:26 | PC.NURSE ---
Contact Info, Odilia Bardales (Friend): [phone]
--- NOTE | 2021-12-21 08:26 | PC.NURSE ---
Contact made to pharmacy to do med rec for patient.
--- NOTE | 2021-12-21 08:37 | PC.NURSE ---
Bibiana Bardaels (cousin ) [phone] please call if back ground information is required on safety at home
--- NOTE | 2021-12-21 10:15 | PC.NURSE ---
Contact made to [facility] pharmacy, no meds have been filled at this location since 2020. Pt is part of [employer]. Per [facility] pharmacy: perscriber is Tray Miles at [phone]
--- NOTE | 2021-12-21 10:20 | PC.NURSE ---
Contact made to [facility] at [phone], message left.
--- NOTE | 2021-12-21 11:05 | MHC.CM.ED ---
Patient remains in ER. Physical therapy eval completed. Home therapy and a 3-1 bedside commode are being recommended. Patient is active with [facility]. T/W spoke with Ludivina at [facility]. Ludivina will arrange transportation home from the ER. [facility] will provide physical therapy and obtain a commode. Patient aware and agreeable. Patient, Tracie MORALES and Inocencia ALVAREZ aware. Continue to monitor for d/c needs.
--- NOTE | 2021-12-21 14:30 | PHA.MEDREC ---
Pharmacy Consult ? Medication Reconciliation Pharmacy has completed the medication reconciliation. obtained list from [email or web address] [phone]
== END 2021-12-21 14:09 | disposition home or self-care (01) ==
PROVIDERS: Emergency Medicine; Emergency Provider Emergency Medicine
DX: S00.03XA Contusion of scalp, initial encounter (principal); W06.XXXA Fall from bed, initial encounter; R60.0 Localized edema; Y93.89 Activity, other specified; Y92.032 Bedroom in apartment as the place of occurrence of the external cause; Y99.9 Unspecified external cause status; E11.9 Type 2 diabetes mellitus without complications
CPT/HCPCS: 36415; 70450; 71045; 72125; 80048; 80076; 81003; 82550; 83690; 83880; 84484; 85025; 94640; 97162; 99284; 99285

== ENCOUNTER 2021-12-23 06:24 | Inpatient (IN) | payer OTHER, SELFPAY ==
[2021-12-23] VITALS (10 sets, daily range): BP systolic 132–158; BP diastolic 59–96; PULSE 61–130; RESP 16–22; TEMP 36.4–36.9; O2SAT 88–99; BMI 31.9
--- NOTE | 2021-12-23 | ECG_ITS ---
Test Reason : TACHYCARDIA Blood Pressure : / mmHG Vent. Rate : 125 BPM Atrial Rate : 000 BPM P-R Int : 000 ms QRS Dur : 092 ms QT Int : 308 ms P-R-T Axes : 000 008 -15 degrees QTc Int : 444 ms Atrial fibrillation with rapid ventricular response with premature ventricular or aberrantly conducted complexes Abnormal ECG When compared with ECG of 23-DEC-2021 08:05, No significant change was found Referred By: Benji Resendez Electronically Signed By:Ryan Field
--- NOTE | 2021-12-23 | ECG_ITS ---
Test Reason : REPEAT Blood Pressure : / mmHG Vent. Rate : 085 BPM Atrial Rate : 085 BPM P-R Int : 162 ms QRS Dur : 090 ms QT Int : 332 ms P-R-T Axes : 067 004 015 degrees QTc Int : 395 ms Normal sinus rhythm Normal ECG When compared with ECG of 23-DEC-2021 10:35, Sinus rhythm has replaced Atrial fibrillation Referred By: Armando Moyer Electronically Signed By:Ryan Field
--- NOTE | ~2021-12-23 | CT_ITS ---
EXAMINATION: CT angio chest PE protocol, CT abdomen pelvis w con CLINICAL INFORMATION: Elevated d-dimer. Hypoxia. Abdominal pain. COMPARISON: Chest radiograph 12/23/2021, CT chest 05/08/2020. TECHNIQUE: IV contrast and CT pulmonary angiogram with multiple thick section angiographic Three-D reformatted images processed on the technologist workstation under concurrent supervision. IV contrast enhanced CT of the abdomen and pelvis with multiple coronal and sagittal reformatted images. Intravenous Contrast: Omnipaque [address] examination was performed using dose optimization techniques as appropriate, variously including the following: *Automated exposure control *Adjustment of mA and/or kV according to patient size (this includes techniques or standardized protocols for targeted exams where dose is matched to indication/reason for exam; i.e. extremities or head) *Use of iterative reconstruction technique DLP: 816 mGy-cm FINDINGS: Pulmonary arterial system: High density intravascular IV contrast is noted within the pulmonary arterial system. No intraluminal filling defects are noted within the visualized pulmonary arterial system to suggest the presence of pulmonary emboli. The main and central pulmonary arteries are normal in caliber. Mediastinum: Moderate calcific and noncalcific atherosclerosis is noted within the thoracic aorta. The thoracic aorta is normal in caliber. No mediastinal lymphadenopathy is identified. The heart size is normal. No pericardial thickening or fluid collections. Lungs and pleura: Minimal bibasilar dependent atelectasis of the lungs is visualized. No focal pulmonary consolidation noted. CHEST WALL: No axillary lymphadenopathy. Skin thickening of the left breast is partially included within the image [id number]. Thoracic osseous structures: Partial visualization is made of a screw in the region of the inferior left glenoid which is not fully included within the axial image [id number]. Multiple left rib chronic posttraumatic deformities are noted. No thoracic vertebral body compression deformities visualized. Moderate multilevel anterior endplate osteophytosis of the thoracic spine is noted. Liver and biliary system: Mild diffuse intrahepatic biliary duct dilatation is present. No focal parenchymal lesions. The gallbladder is physiologically distended and is normal in appearance. The common bile duct measures 9 mm diameter. Pancreas: Normal in appearance. Spleen: Normal. Adrenal glands: Normal. Kidneys: Bilaterally symmetric nephrographic enhancement. No urolithiasis. No perinephric inflammatory changes. No hydronephrosis. A 1.7 cm diameter rounded low density benign-appearing simple cyst associated with the inferior pole the right kidney is unchanged compared with 08/17/2021 and requires no additional imaging follow-up. Urinary bladder: Physiologically distended. Gastrointestinal system: Mild number of scattered sigmoid diverticula. No associated inflammatory changes to suggest acute diverticulitis. Normal appendix (series 13 image 498). No free intraperitoneal fluid or gas collections. No intestinal dilatation or mural thickening. Small hiatal hernia. Pelvic viscera: Normal appearance of the uterus. No adnexal lesions. Abdominal wall: Focal subcutaneous reticulation and density along the left lateral abdominal wall (series 6 image 33). Abdominal and pelvic lymphovascular structures: Mild scattered calcific atherosclerosis. No lymphadenopathy. Focal subcutaneous reticulation is present adjacent to the right hip laterally. Osseous structures: Partially healed fracture of the lateral segment of the left 10th rib (series 13 image 216). CT/CT abdomen pelvis w con IMPRESSION: CT angiography chest: *CT angiography negative for pulmonary emboli. *No acute cardiopulmonary abnormalities identified. No evidence of pneumonia or active pulmonary edema. *Moderate diffuse aortic calcific atherosclerosis. *Partial visualization of dermal thickening of the left breast. Findings could represent chronic scarring or acute traumatic inflammatory changes. Alternatively, findings could represent cellulitis or possible inflammatory carcinoma. Consider further evaluation with dedicated mammography of the left breast as clinically indicated. *Partially healed subacute fracture of the lateral segment of the left 10th rib. This finding demonstrates evidence of interval progression of healing compared with 08/17/2021. CT abdomen and pelvis: *Moderate focal subcutaneous inflammatory changes along the left flank new compared with 08/17/2021. Mild subcutaneous reticulation adjacent to the right hip. Both findings may represent acute traumatic soft tissue inflammatory changes. *Partially healed, subacute fracture of the lateral segment of the left 10th rib with interval progression of healing compared with 08/17/2021. *Mild diffuse intrahepatic biliary duct dilatation and moderate diffuse prominence of the common bile duct. Findings are slightly increased in prominence compared with 08/17/2021. No cholelithiasis identified though CT has low sensitivity in the detection of cholelithiasis. As clinically indicated, consider further evaluation with right upper quadrant ultrasound. *Mild colonic diverticulosis. No evidence of acute diverticulitis. *Small hiatal hernia.
--- NOTE | ~2021-12-23 | XR_ITS ---
EXAMINATION: XR CHEST CLINICAL INFORMATION: Febrile COMPARISON: Chest radiograph 12/23/2021 TECHNIQUE: Frontal view of the chest was obtained. FINDINGS: The lungs are hypoinflated. Heart size within normal limits. No evidence of CHF. Some chronic interstitial increased interstitial markings are present. No focal consolidations worrisome lung masses or pleural effusions are seen. Incidental note made of degenerative changes in both shoulders with a screw present in the left humeral head. XR/XR chest 1V IMPRESSION: No acute intrathoracic disease. No evidence of pneumonia
--- NOTE | ~2021-12-23 | CT_ITS ---
EXAMINATION: CT angio chest PE protocol, CT abdomen pelvis w con CLINICAL INFORMATION: Elevated d-dimer. Hypoxia. Abdominal pain. COMPARISON: Chest radiograph 12/23/2021, CT chest 05/08/2020. TECHNIQUE: IV contrast and CT pulmonary angiogram with multiple thick section angiographic Three-D reformatted images processed on the technologist workstation under concurrent supervision. IV contrast enhanced CT of the abdomen and pelvis with multiple coronal and sagittal reformatted images. Intravenous Contrast: Omnipaque [address] examination was performed using dose optimization techniques as appropriate, variously including the following: *Automated exposure control *Adjustment of mA and/or kV according to patient size (this includes techniques or standardized protocols for targeted exams where dose is matched to indication/reason for exam; i.e. extremities or head) *Use of iterative reconstruction technique DLP: 816 mGy-cm FINDINGS: Pulmonary arterial system: High density intravascular IV contrast is noted within the pulmonary arterial system. No intraluminal filling defects are noted within the visualized pulmonary arterial system to suggest the presence of pulmonary emboli. The main and central pulmonary arteries are normal in caliber. Mediastinum: Moderate calcific and noncalcific atherosclerosis is noted within the thoracic aorta. The thoracic aorta is normal in caliber. No mediastinal lymphadenopathy is identified. The heart size is normal. No pericardial thickening or fluid collections. Lungs and pleura: Minimal bibasilar dependent atelectasis of the lungs is visualized. No focal pulmonary consolidation noted. CHEST WALL: No axillary lymphadenopathy. Skin thickening of the left breast is partially included within the image [id number]. Thoracic osseous structures: Partial visualization is made of a screw in the region of the inferior left glenoid which is not fully included within the axial image [id number]. Multiple left rib chronic posttraumatic deformities are noted. No thoracic vertebral body compression deformities visualized. Moderate multilevel anterior endplate osteophytosis of the thoracic spine is noted. Liver and biliary system: Mild diffuse intrahepatic biliary duct dilatation is present. No focal parenchymal lesions. The gallbladder is physiologically distended and is normal in appearance. The common bile duct measures 9 mm diameter. Pancreas: Normal in appearance. Spleen: Normal. Adrenal glands: Normal. Kidneys: Bilaterally symmetric nephrographic enhancement. No urolithiasis. No perinephric inflammatory changes. No hydronephrosis. A 1.7 cm diameter rounded low density benign-appearing simple cyst associated with the inferior pole the right kidney is unchanged compared with 08/17/2021 and requires no additional imaging follow-up. Urinary bladder: Physiologically distended. Gastrointestinal system: Mild number of scattered sigmoid diverticula. No associated inflammatory changes to suggest acute diverticulitis. Normal appendix (series 13 image 498). No free intraperitoneal fluid or gas collections. No intestinal dilatation or mural thickening. Small hiatal hernia. Pelvic viscera: Normal appearance of the uterus. No adnexal lesions. Abdominal wall: Focal subcutaneous reticulation and density along the left lateral abdominal wall (series 6 image 33). Abdominal and pelvic lymphovascular structures: Mild scattered calcific atherosclerosis. No lymphadenopathy. Focal subcutaneous reticulation is present adjacent to the right hip laterally. Osseous structures: Partially healed fracture of the lateral segment of the left 10th rib (series 13 image 216). CT/CT angio chest PE protocol IMPRESSION: CT angiography chest: *CT angiography negative for pulmonary emboli. *No acute cardiopulmonary abnormalities identified. No evidence of pneumonia or active pulmonary edema. *Moderate diffuse aortic calcific atherosclerosis. *Partial visualization of dermal thickening of the left breast. Findings could represent chronic scarring or acute traumatic inflammatory changes. Alternatively, findings could represent cellulitis or possible inflammatory carcinoma. Consider further evaluation with dedicated mammography of the left breast as clinically indicated. *Partially healed subacute fracture of the lateral segment of the left 10th rib. This finding demonstrates evidence of interval progression of healing compared with 08/17/2021. CT abdomen and pelvis: *Moderate focal subcutaneous inflammatory changes along the left flank new compared with 08/17/2021. Mild subcutaneous reticulation adjacent to the right hip. Both findings may represent acute traumatic soft tissue inflammatory changes. *Partially healed, subacute fracture of the lateral segment of the left 10th rib with interval progression of healing compared with 08/17/2021. *Mild diffuse intrahepatic biliary duct dilatation and moderate diffuse prominence of the common bile duct. Findings are slightly increased in prominence compared with 08/17/2021. No cholelithiasis identified though CT has low sensitivity in the detection of cholelithiasis. As clinically indicated, consider further evaluation with right upper quadrant ultrasound. *Mild colonic diverticulosis. No evidence of acute diverticulitis. *Small hiatal hernia.
--- NOTE | ~2021-12-23 | XR_ITS ---
EXAMINATION: XR CHEST CLINICAL INFORMATION: Fall and vomiting COMPARISON: Previous chest x-ray 12/20/2021 TECHNIQUE: Frontal view of the chest was obtained. FINDINGS: The cardiac and mediastinal contours are stable. The lungs are clear. There is no pleural effusion or pneumothorax. There are degenerative changes of the spine and left shoulder. There is a screw projecting over the left shoulder joint. XR/XR chest 1V IMPRESSION: No evidence for acute disease in the chest.
--- NOTE | ~2021-12-23 | CT_ITS ---
EXAMINATION: CT HEAD WITHOUT CONTRAST CLINICAL INFORMATION: Head injury status post fall, vomiting. COMPARISON: 12/20/2021 and 08/17/[address] scans. TECHNIQUE: Contiguous axial imaging was performed from the skull base to vertex without intravenous administration of contrast. Coronal and sagittal reformatted images were obtained. This CT examination was performed using dose optimization techniques as appropriate, variously including the following: *Automated exposure control *Adjustment of mA and/or kV according to patient size (this includes techniques or standardized protocols for targeted exams where dose is matched to indication/reason for exam; i.e. extremities or head) *Use of iterative reconstruction technique DLP: 727.86 mGy-cm FINDINGS: There is mild widening of the cortical sulci and associated ventriculomegaly. The lateral ventricles are symmetrical. The third and fourth ventricles are in their normal midline position. The basilar and prepontine cisterns are unremarkable. There is no acute intra or extracerebral abnormality. There is no mass effect or midline shift. Sections through the bony calvarium are unremarkable. The orbits are intact. The paranasal sinuses are clear. The mastoid air cells are clear. Again noted is deformity and defect in the anterior cartilaginous septum and associated partial narrowing of the left anterior nasal cavity without significant change. CT/CT head/brain wo con IMPRESSION: No acute intracranial pathology. No significant interval change.
--- NOTE | ~2021-12-23 | CT_ITS ---
EXAMINATION: CT CERVICAL SPINE WITHOUT CONTRAST CLINICAL INFORMATION: Neck pain status post fall. COMPARISON: 12/20/[address] scan. TECHNIQUE: Multiple axial images of the cervical spine were obtained without the administration of intravenous contrast. Coronal and sagittal reformatted images were obtained. This CT examination was performed using dose optimization techniques as appropriate, variously including the following: *Automated exposure control *Adjustment of mA and/or kV according to patient size (this includes techniques or standardized protocols for targeted exams where dose is matched to indication/reason for exam; i.e. extremities or head) *Use of iterative reconstruction technique DLP: 18.92 mGy-cm FINDINGS: There is normal cervical lordosis. Severe degenerative disc disease is again seen at C6-C7 with severe disc space narrowing, sclerosis and adjacent endplates, subcortical cystic changes and marginal osteophyte formation. Mild to moderate degenerative disc disease is seen at C5-C6. There is minimal grade 1 anterolisthesis of C3 over C4 and C7-T1 without significant change. The odontoid process is intact with moderate articular changes including subcortical cystic changes without significant change. The neural foramina are patent. Mild to moderate multilevel bilateral facet arthropathy is seen. The spinous processes are intact. The cervical soft tissues are unremarkable. There is no lymphadenopathy. The thyroid gland is unremarkable. The visualized lung apices show mild biapical scarring, right greater than left. CT/CT cervical spine wo con IMPRESSION: 1. Multilevel degenerative changes without significant change. No definitive acute abnormality. Fleischner guidelines were followed.
--- NOTE | 2021-12-23 06:47 | PC.NURSE ---
Neurological test done. Equal strength bilaterally in upper and lower extremities. Pupils PERRLA, Pt A&O.
--- NOTE | 2021-12-23 07:05 | ECG_ITS ---
Test Reason : DIZZINESS Blood Pressure : / mmHG Vent. Rate : 122 BPM Atrial Rate : 000 BPM P-R Int : 000 ms QRS Dur : 092 ms QT Int : 326 ms P-R-T Axes : 000 010 -23 degrees QTc Int : 464 ms Atrial fibrillation with rapid ventricular response Abnormal ECG When compared with ECG of 18-AUG-2021 02:30, Atrial fibrillation has replaced Sinus rhythm Referred By: Benji Resendez Electronically Signed By:MARILU JONAS
--- NOTE | 2021-12-23 07:06 | ED_ITS ---
HPI - Fall General Chief Complaint: Dizziness Stated Complaint: vomiting Time Seen by Provider: 12/23/21 07:04 Source: patient and EMS Mode of arrival: EMS Limitations: no limitations History of Present Illness HPI Narrative: 71 years old female came in from home for evaluation of fall. Patient was just seen in the emergency department for mechanical fall secondary to lower extremities swelling and edema, patient was seen in the emergency department and evaluated case management for possible placement, patient was was sent home with home physical therapy and PT at home, patient fell this morning hitting her head, patient do not recall details of falling, patient is been vomiting in the emergency department. Complaining of mild headache. Patient otherwise has no complaints. Patient lives home alone with 2 dogs no close family or friends around her and patient prefer to be home. Related Data Home Medications Medication Instructions Recorded Confirmed buspirone 15 mg tablet 15 mg PO BID 04/17/20 12/23/21 duloxetine 60 mg capsule,delayed 60 mg PO BID 04/17/20 12/23/21 release gabapentin 800 mg tablet 800 mg PO TID 04/17/20 12/23/21 buprenorphine 2 mg-naloxone 0.5 mg 1 film sublingual TID 04/26/20 12/23/21 sublingual film pramipexole 0.125 mg tablet 0.125 mg PO BID 04/26/20 12/23/21 acetaminophen 500 mg tablet 1,000 mg PO Q8H 12/21/21 12/23/21 albuterol sulfate 90 mcg/actuation 2 puff inhalation Q6H PRN 12/21/21 12/23/21 aerosol inhaler shortness of breath or wheezing cholecalciferol (vitamin D3) 125 125 mcg PO DAILY 12/21/21 12/23/21 mcg (5,000 unit) capsule fexofenadine 180 mg tablet 180 mg PO DAILY 12/21/21 12/23/21 fluticasone propionate 110 2 puff inhalation BID 12/21/21 12/23/21 mcg/actuation HFA aerosol inhaler (Flovent HFA) hydrochlorothiazide 25 mg tablet 25 mg PO DAILY 12/21/21 12/23/21 methyl salicylate 30 %-menthol 10 1 appl topical TID PRN Muscle Pain 12/21/21 12/23/21 % topical cream (Icy Hot) ouqxjvxx-bnt-irxnt acid 0.4 1 tab PO DAILY 12/21/21 12/23/21 mg-lycopene 300 mcg-lutein 250 mcg tablet (Cerovite Senior) pantoprazole 40 mg tablet,delayed 40 mg PO DAILY 12/21/21 12/23/21 release prednisone 10 mg tablet 10 mg PO DIRECTED 12/21/21 12/23/21 sodium chloride 0.65 % nasal spray 2 spray intranasal QID PRN Nasal 12/21/21 12/23/21 aerosol ([place] Nasal) Congestion thiamine HCl (vitamin B1) 100 mg 100 mg PO DAILY 12/21/21 12/23/21 tablet tobramycin 0.3 % eye drops (Tobrex) 1 drp ophthalmic (eye) QID 12/21/21 12/23/21 triamterene 37.5 1 tab PO DAILY 12/21/21 12/23/21 mg-hydrochlorothiazide 25 mg tablet Allergies Allergy/AdvReac Type Severity Reaction Status Date / Time No Known Allergies Allergy Verified 08/07/21 15:02 [No Known Allergies*] Review of Systems Review of Systems: All other systems are reviewed and are negative Constitutional: Reports as per HPI and Reports no additional constitutional complaints Eyes: Reports as per HPI and Reports no additional eye complaints Reports system reviewed and no additional complaints, except as documented Cardiovascular: Reports as per HPI and Reports no additional cardiovascular complaints Respiratory: Reports as per HPI and Reports no additional respiratory complaints Gastrointestinal: Reports as per HPI and Reports no additional gastrointestinal complaints Genitourinary: Reports no additional female genitourinary complaints Musculoskeletal: Reports no additional musculoskeletal complaints Skin/Breast: Reports system reviewed and no additional complaints, except as docu Psychiatric: Reports no additional psychiatric complaints Endocrine: Reports no additional endocrine complaints Hematologic/Lymphatic: Reports no additional hematologic/lymphatic complaints Allergic/Immunologic: Reports no additional allergic/immunologic complaints Reports system reviewed and no additional complaints, except as documented and Reports Abnormal speech present [facility] Past Medical History Medical History Anxiety Asthma Asthma exacerbation Asthma-COPD overlap syndrome Chronic bronchitis COPD (chronic obstructive pulmonary disease) Depression Diabetes mellitus, type 2 Dyspnea GERD (gastroesophageal reflux disease) Pneumonitis Surgical History History of section History of shoulder surgery Family History Family History Father Cancer Mother No problems noted. Social History Social History Alcohol intake: former Patient Tobacco Use Status: Never used Tobacco Use of substances other than those prescribed or required for medical reasons: No Advance Directives: No Advance Directives Information Provided: Yes Physical Exam Vital Signs: Vital Signs: Last Vital Signs Temp 97.9 F 12/23/21 15:21 Pulse 128 H 12/23/21 15:21 Resp 16 12/23/21 15:21 BP 138/96 H 12/23/21 15:21 Pulse Ox 99 12/23/21 15:21 O2 Del Method 12/23/21 15:21 O2 Flow Rate 2 12/23/21 15:21 BMI result Body Mass Index 31.9 Vital signs have been reviewed as appeared to be correct. Blood pressure normal. Heart rate normal. Respiration rate normal. Temperature normal. Oxygen saturation normal. Appearance: Alert. Oriented X3. Patient is somewhat somnolent but easily arousable patient stated she has been like this for the past few months. No acute distress. Head: Normal external exam. Normocephalic. Atraumatic. No Garcia signs noted. No raccoon eyes noted Eyes: PERRLA. EOMI. Conjunctiva and sclera normal. Eyelids normal. ENT: TM's Normal. Pharynx normal. Uvula midline. Moist mucous membranes. No trismus noted. No drooling noted. No muffled voice noted. Neck: Normal inspection. Neck supple. FROM. No adenopathy. Thyroid Normal. No meningeal signs. No neck mass noted. CVS: Normal heart rate and rhythm. Heart sound normal. No murmurs noted. Pulses normal throughout. Respiratory: No respiratory distress. Painless inspiration. Breath sounds normal. No wheezes/rales/rhonchi noted. Chest nontender. No accessory muscle usage noted or decreased air movement noted. Abdomen: Soft and nontender. Bowel sounds normal in all 4 quadrants. No distention noted. No organomegaly noted. No visible injury noted. Back: No CVA tenderness. Full range of motion noted. Skin: Skin warm and dry. Normal skin color. Normal skin turgor. No rashes/lesions/lacerations noted. Extremities: No lower extremity edema. Extremities exhibit normal range of motion. Extremities nontender. Neuro: Oriented X 3. Cranial nerve exam: II-XII are grossly intact No motor deficit. No sensory deficit. Reflexes normal. Course Course Course Narrative: Assessment and plan 71-year-old female with frequent falling at home was seen and evaluated in the emergency department recently was just discharged from the emergency department after arranging home PT returned today after sustained a mechanical fall, patient is somnolent but normal neuro exam and CT head is unremarkable, patient found to have hyperglycemia. Reevaluation(s) Reevaluation #1: While patient in the ED patient became hypoxic 88% on room air patient was placed on the nasal cannula, had an ABG which is unremarkable for hypercarbia, patient had CTA of the chest which showed no PE. Patient also noticed to have paroxysmal AFib needed no rate controlled in the ED. Hypercalcemia patient had CTA of the chest for the above reason and also CT of the abdomen for abdominal pain shows no concern of metastases or malignancy. During patient in the ED had abdominal pain and patient had CT of the abdomen which shows no acute reason for the patient's symptoms. Time: 15:30 MDM - Fall Lab Data Attestation: I reviewed the patient's lab results. Result diagrams: 12/23/21 07:31 12/23/21 07:31 Labs: Lab Results 12/23/21 12/23/21 12/23/21 Range/Units 07:21 07:21 07:31 WBC 5.5 (4.8-10.8) X10*3/uL RBC 3.23 L (4.20-5.50) X10*6/uL Hgb 9.9 L (12.0-16.0) g/dl Hct 30.2 L (37.0-47.0) % MCV 93.5 (80.0-98.0) fL MCH 30.7 (27.0-33.0) pg MCHC 32.8 (31.0-35.0) g/dl RDW 15.8 (11.0-16.0) % Plt Count 168 (160-400) X10*3/uL MPV 9.1 L (9.4-12.3) fL Immature Gran % (Auto) 1.3 H (0.0-0.4) % Neut % (Auto) 69.1 (45-73) % Lymph % (Auto) 21.4 (20-40) % Pettis % (Auto) 4.4 (2-11) % Eos % (Auto) 3.6 (0-4) % Baso % (Auto) 0.2 (0-2) % Lymph # (Auto) 1.2 (1.2-4.9) X10*3/uL Pettis # (Auto) 0.2 (0.1-1.2) X10*3/uL Eos # (Auto) 0.2 (0.0-0.4) X10*3/uL Baso # (Auto) 0.0 (0.0-0.2) X10*3/uL Abs Immat Gran (auto) 0.07 H (0.00-0.03) X10*3/uL Absolute Neuts (auto) 3.8 (2.0-8.3) x10*3/uL Absolute Nucleated RBC 0.000 (0.0-0.012) X10*3/uL Nucleated RBC % (auto) 0.0 (0.0-0.2) /100WBC D-Dimer High Sensitivty NG/ML O2 Saturation % ABG pH at Pt Temp (7.35-7.45) ABG pCO2 at Pt Temp (32-45) mmHg ABG pO2 at Pt Temp (83-108) mmHg ABG HCO3 (22-26) mmol/L ABG Base Excess (Actual) mmol/L Sodium (135-145) mmol/L Potassium (3.3-5.1) mmol/L Chloride (96-108) mmol/L Carbon Dioxide (22-29) mmol/L Anion Gap (12-20) BUN (9-16) mg/dL Creatinine (0.5-1.4) mg/dL Estim Creat Clear Calc Estimated GFR Random Glucose (60-115) mg/dL Calcium (8.4-10.2) mg/dL Magnesium (1.6-2.6) mg/dL Total Bilirubin (0.0-1.0) mg/dL Direct Bilirubin (0.0-0.5) mg/dL AST (5-31) U/L ALT (0-31) U/L Alkaline Phosphatase (39-117) U/L Troponin I High Sens (<3.5-17.0) ng/L B-Natriuretic Peptide (<100) pg/mL Total Protein (6.5-8.0) g/dL Albumin (3.5-5.0) g/dL Lipase (8-78) U/L Urine Color YELLOW Urine Appearance CLEAR Urine pH 7.0 (5.0-8.0) Ur Specific [place] 1.010 (1.005-1.025) Urine Protein NEG (NEG-TRACE) MG/DL Urine Glucose (UA) NEG (NEG) MG/DL Urine Ketones NEG (NEG) MG/DL Urine Blood NEG (NEG) Urine Nitrite NEG (NEG) Ur Leukocyte Esterase NEG (NEG) Influenza Type A (PCR) NEGATIVE (Negative) Influenza Type B (PCR) NEGATIVE (Negative) RSV RNA Qual (PCR) NEGATIVE (Negative) SARS-CoV-2 RNA (RT-PCR) NEGATIVE (Negative) 12/23/21 12/23/21 12/23/21 Range/Units 07:31 07:31 10:46 WBC (4.8-10.8) X10*3/uL RBC (4.20-5.50) X10*6/uL Hgb (12.0-16.0) g/dl Hct (37.0-47.0) % MCV (80.0-98.0) fL MCH (27.0-33.0) pg MCHC (31.0-35.0) g/dl RDW (11.0-16.0) % Plt Count (160-400) X10*3/uL MPV (9.4-12.3) fL Immature Gran % (Auto) (0.0-0.4) % Neut % (Auto) (45-73) % Lymph % (Auto) (20-40) % Pettis % (Auto) (2-11) % Eos % (Auto) (0-4) % Baso % (Auto) (0-2) % Lymph # (Auto) (1.2-4.9) X10*3/uL Pettis # (Auto) (0.1-1.2) X10*3/uL Eos # (Auto) (0.0-0.4) X10*3/uL Baso # (Auto) (0.0-0.2) X10*3/uL Abs Immat Gran (auto) (0.00-0.03) X10*3/uL Absolute Neuts (auto) (2.0-8.3) x10*3/uL Absolute Nucleated RBC (0.0-0.012) X10*3/uL Nucleated RBC % (auto) (0.0-0.2) /100WBC D-Dimer High Sensitivty NG/ML O2 Saturation 97.0 % ABG pH at Pt Temp 7.50 H (7.35-7.45) ABG pCO2 at Pt Temp 37 (32-45) mmHg ABG pO2 at Pt Temp 101 (83-108) mmHg ABG HCO3 29 H (22-26) mmol/L ABG Base Excess (Actual) 6.0 mmol/L Sodium 136 (135-145) mmol/L Potassium 3.9 (3.3-5.1) mmol/L Chloride 97 (96-108) mmol/L Carbon Dioxide 33 H (22-29) mmol/L Anion Gap 10 L (12-20) BUN 17 H (9-16) mg/dL Creatinine 0.93 (0.5-1.4) mg/dL Estim Creat Clear Calc 54.5 Estimated GFR 59 Random Glucose 134 H (60-115) mg/dL Calcium 14.0 H* D (8.4-10.2) mg/dL Magnesium 1.6 (1.6-2.6) mg/dL Total Bilirubin 0.5 (0.0-1.0) mg/dL Direct Bilirubin 0.2 (0.0-0.5) mg/dL AST 15 (5-31) U/L ALT 14 (0-31) U/L Alkaline Phosphatase 70 (39-117) U/L Troponin I High Sens < 3.5 (<3.5-17.0) ng/L B-Natriuretic Peptide 91 (<100) pg/mL Total Protein 6.0 L (6.5-8.0) g/dL Albumin 3.1 L (3.5-5.0) g/dL Lipase 5 L (8-78) U/L Urine Color Urine Appearance Urine pH (5.0-8.0) Ur Specific [place] (1.005-1.025) Urine Protein (NEG-TRACE) MG/DL Urine Glucose (UA) (NEG) MG/DL Urine Ketones (NEG) MG/DL Urine Blood (NEG) Urine Nitrite (NEG) Ur Leukocyte Esterase (NEG) Influenza Type A (PCR) (Negative) Influenza Type B (PCR) (Negative) RSV RNA Qual (PCR) (Negative) SARS-CoV-2 RNA (RT-PCR) (Negative) 12/23/21 Range/Units 12:08 WBC (4.8-10.8) X10*3/uL RBC (4.20-5.50) X10*6/uL Hgb (12.0-16.0) g/dl Hct (37.0-47.0) % MCV (80.0-98.0) fL MCH (27.0-33.0) pg MCHC (31.0-35.0) g/dl RDW (11.0-16.0) % Plt Count (160-400) X10*3/uL MPV (9.4-12.3) fL Immature Gran % (Auto) (0.0-0.4) % Neut % (Auto) (45-73) % Lymph % (Auto) (20-40) % Pettis % (Auto) (2-11) % Eos % (Auto) (0-4) % Baso % (Auto) (0-2) % Lymph # (Auto) (1.2-4.9) X10*3/uL Pettis # (Auto) (0.1-1.2) X10*3/uL Eos # (Auto) (0.0-0.4) X10*3/uL Baso # (Auto) (0.0-0.2) X10*3/uL Abs Immat Gran (auto) (0.00-0.03) X10*3/uL Absolute Neuts (auto) (2.0-8.3) x10*3/uL Absolute Nucleated RBC (0.0-0.012) X10*3/uL Nucleated RBC % (auto) (0.0-0.2) /100WBC D-Dimer High Sensitivty 410 NG/ML O2 Saturation % ABG pH at Pt Temp (7.35-7.45) ABG pCO2 at Pt Temp (32-45) mmHg ABG pO2 at Pt Temp (83-108) mmHg ABG HCO3 (22-26) mmol/L ABG Base Excess (Actual) mmol/L Sodium (135-145) mmol/L Potassium (3.3-5.1) mmol/L Chloride (96-108) mmol/L Carbon Dioxide (22-29) mmol/L Anion Gap (12-20) BUN (9-16) mg/dL Creatinine (0.5-1.4) mg/dL Estim Creat Clear Calc Estimated GFR Random Glucose (60-115) mg/dL Calcium (8.4-10.2) mg/dL Magnesium (1.6-2.6) mg/dL Total Bilirubin (0.0-1.0) mg/dL Direct Bilirubin (0.0-0.5) mg/dL AST (5-31) U/L ALT (0-31) U/L Alkaline Phosphatase (39-117) U/L Troponin I High Sens (<3.5-17.0) ng/L B-Natriuretic Peptide (<100) pg/mL Total Protein (6.5-8.0) g/dL Albumin (3.5-5.0) g/dL Lipase (8-78) U/L Urine Color Urine Appearance Urine pH (5.0-8.0) Ur Specific [place] (1.005-1.025) Urine Protein (NEG-TRACE) MG/DL Urine Glucose (UA) (NEG) MG/DL Urine Ketones (NEG) MG/DL Urine Blood (NEG) Urine Nitrite (NEG) Ur Leukocyte Esterase (NEG) Influenza Type A (PCR) (Negative) Influenza Type B (PCR) (Negative) RSV RNA Qual (PCR) (Negative) SARS-CoV-2 RNA (RT-PCR) (Negative) Imaging Data Head/C-spine CT: Attestation: I personally reviewed and interpreted this imaging study as follows: Radiologist's impression: No acute intracranial pathology. No significant interval change. 1. Multilevel degenerative changes without significant change. No definitive acute abnormality. ? CTA chest/CT abdomen: Attestation: I personally reviewed and interpreted this imaging study as follows: Radiologist's impression: CT angiography chest: *CT angiography negative for pulmonary emboli. *No acute cardiopulmonary abnormalities identified. No evidence of pneumonia or active pulmonary edema. *Moderate diffuse aortic calcific atherosclerosis. *Partial visualization of dermal thickening of the left breast. Findings could represent chronic scarring or acute traumatic inflammatory changes. Alternatively, findings could represent cellulitis or possible inflammatory carcinoma. Consider further evaluation with dedicated mammography of the left breast as clinically indicated. *Partially healed subacute fracture of the lateral segment of the left 10th rib. This finding demonstrates evidence of interval progression of healing compared with 08/17/2021. ? CT abdomen and pelvis: *Moderate focal subcutaneous inflammatory changes along the left flank new compared with 08/17/2021. Mild subcutaneous reticulation adjacent to the right hip. Both findings may represent acute traumatic soft tissue inflammatory changes. *Partially healed, subacute fracture of the lateral segment of the left 10th rib with interval progression of healing compared with 08/17/2021. *Mild diffuse intrahepatic biliary duct dilatation and moderate diffuse prominence of the common bile duct. Findings are slightly increased in prominence compared with 08/17/2021. No cholelithiasis identified though CT has low sensitivity in the detection of cholelithiasis. As clinically indicated, consider further evaluation with right upper quadrant ultrasound. *Mild colonic diverticulosis. No evidence of acute diverticulitis. *Small hiatal hernia. ? Critical Care Time Critical Care Time Critical Care Time: Yes Total Critical Care Time: 60 Attestation: I spent 60 minutes providing critical care service to the patient, this includ ing time spent at the bedside to evaluate the patient, reassess the patient, monitoring vital signs, review labs, and radiographic studies, counseling the patient/family, discussing the case with consultants, disposition the patient. Discharge Plan Discharge Clinical Impression: Hypercalcemia, Abdominal pain, Accident due to mechanical fall without injury, Atrial fibrillation Patient Disposition: Admitted As Inpatient
[2021-12-23] MEDS: 0.9 % Sodium Chloride 1,000 ML 999 ML IV ×2 (07:11→09:19)
[2021-12-23 07:29] LABS: Appearance Urine CLEAR; Color Urine YELLOW; Glucose Urine UA NEG (NEG); Leukocyte Esterase Urine NEG (NEG); Nitrite Urine NEG (NEG); Urine Blood NEG (NEG); Urine Ketones NEG (NEG); Urine Protein NEG (NEG-TRACE)
[2021-12-23 07:39] LABS: MANUAL DIFF FLAG NO
[2021-12-23 07:48] LABS: Basophils Percent Auto 0.2 % (0-2); Eosinophils Absolute Auto 0.2 X10*3/uL (0.0-0.4); Eosinophils Percent Auto 3.6 % (0-4); Hematocrit 30.2 % (37.0-47.0); Hemoglobin 9.9 g/dl (12.0-16.0); Imm Gran Abs Auto 0.07 X10*3/uL (0.00-0.03); Imm Gran Pct Auto 1.3 % (0.0-0.4); Lymphocytes Absolute Auto 1.2 X10*3/uL (1.2-4.9); Lymphocytes Percent Auto 21.4 % (20-40); Mean Corpuscular HGB Conc 32.8 g/dl (31.0-35.0); Mean Corpuscular Hemoglobin 30.7 pg (27.0-33.0); Mean Corpuscular Volume 93.5 fL (80.0-98.0); Mean Platelet Volume 9.1 fL (9.4-12.3); Monocytes Absolute Auto 0.2 X10*3/uL (0.1-1.2); Monocytes Percent Auto 4.4 % (2-11); Neutrophils Absolute Auto 3.8 x10*3/uL (2.0-8.3); Neutrophils Percent Auto 69.1 % (45-73); Platelet Count 168 X10*3/uL (160-400); Red Blood Count 3.23 X10*6/uL (4.20-5.50); Red Cell Distribution Width 15.8 % (11.0-16.0); White Blood Count 5.5 X10*3/uL (4.8-10.8)
[2021-12-23] MEDS: ondansetron HCL 4 MG/2 ML VIAL IVPUSH ×2 (07:50→15:59)
--- NOTE | 2021-12-23 07:56 | PC.NURSE ---
patient c/o increased urination with pain and burning has requested to be placed on bed recio several times . patient also reports history that this has been going on for the past month .
[2021-12-23 08:00] LABS: B Type Natriuretic Peptide 91 pg/mL (<100); Troponin-I High Sensitivity < 3.5 ng/L (<3.5-17.0)
[2021-12-23 08:14] LABS: Alanine Aminotransferase 14 U/L (0-31); Albumin Level 3.1 g/dL (3.5-5.0); Alkaline Phosphatase 70 U/L (39-117); Anion Gap 10 (12-20); Aspartate Amino Transferase 15 U/L (5-31); Bilirubin Direct 0.2 mg/dL (0.0-0.5); Bilirubin Total 0.5 mg/dL (0.0-1.0); Blood Urea Nitrogen 17 mg/dL (9-16); Carbon Dioxide 33 mmol/L (22-29); Chloride 97 mmol/L (96-108); Creatinine Clr Calc Pharmacy 54.5; Estimated Glomerular Filt Rate 59; Glucose Random 134 mg/dL (60-115); Lipase 5 U/L (8-78); Potassium 3.9 mmol/L (3.3-5.1); Sodium 136 mmol/L (135-145)
[2021-12-23 08:29] LABS: Influenza A PCR NEGATIVE (Negative); Influenza B PCR NEGATIVE (Negative); Resp Syncy Virus RNA Qual PCR NEGATIVE (Negative); SARS COV2 PCR INHOUSE NEGATIVE (Negative)
[2021-12-23 10:20] LABS: Magnesium 1.6 mg/dL (1.6-2.6)
--- NOTE | 2021-12-23 10:47 | PC.NURSE ---
patient placed on senior javascript engineer after witnesses episodes of tachycardia at a heart rate of 133-170 . obtained EKG that showed new onset of AFIB . EKG read and MD aware . patient appears dusky at this time and sleepy . call brush with in reach
[2021-12-23 10:50] LABS: ABG HCO3 29 mmol/L (22-26); ABG pCO2 37 mmHg (32-45); ABG pO2 101 mmHg (83-108)
--- NOTE | 2021-12-23 11:22 | PHA.MEDREC ---
med rec complete, no issues Pharmacy Consult ? Medication Reconciliation Pharmacy has completed the medication reconciliation.
[2021-12-23 12:00] LABS: ABG Refer to POC result
--- NOTE | 2021-12-23 12:09 | PC.NURSE ---
patient reports abdominal pain that just started that is intense cant specify area pointing to all over . MD aware
[2021-12-23 12:34] LABS: D Dimer High Sensitivity 410 NG/ML
[2021-12-23] MEDS: iohexoL 350 MG/ML 100 ML INFUS..BTL IV (14:24)
[2021-12-23] MEDS: 0.9 % Sodium Chloride 1,000 ML 125 ML IVCONT (16:10)
[2021-12-23] MEDS: 0.9 % Sodium Chloride Flush 3 ML SYRINGE IVFLUSH (16:11)
--- NOTE | 2021-12-23 16:13 | PM.IMHP ---
History of Present Illness Date of Service: 12/23/21 Chief Complaint: Hypercalcemia 71 years old female came in from home for evaluation of fall.? Patient was just seen in the emergency department for mechanical fall secondary to lower extremities swelling and edema, patient was seen in the emergency department and evaluated case management for possible placement, patient was was sent home with home physical therapy and PT at home, patient fell this morning hitting her head, patient do not recall details of falling, patient is been vomiting in the emergency department.? Complaining of mild headache. In the emergency room patient became hypoxic to 88%; this corrected with supplemental O2. CTA of the chest failed to demonstrate a PE. Patient also developed atrial fibrillation with a rapid ventricular response; during multiple episodes of vomiting patient's heart rate went into the 30s and she subsequently converted back to normal sinus rhythm. Multiple imaging including CT of the head CT abdomen pelvis and CTA chest failed to demonstrate any acute pathology. Routine blood work demonstrated a calcium that corrects to 10.7. She will be admitted for treatment of same Review of Systems Review of Systems: denies chest pain Denies shortness of breath Admits nausea vomiting ; nodiarrhea Denies fever chills [facility] Medical History Anxiety Asthma Asthma exacerbation Asthma-COPD overlap syndrome Chronic bronchitis COPD (chronic obstructive pulmonary disease) Depression Diabetes mellitus, type 2 Dyspnea GERD (gastroesophageal reflux disease) Pneumonitis Family History Father Cancer Mother No problems noted. Surgical History History of section History of shoulder surgery Social History Alcohol intake: former Patient Tobacco Use Status: Never used Tobacco Use of substances other than those prescribed or required for medical reasons: No Advance Directives: No Advance Directives Information Provided: Yes Meds Allergies Allergy/AdvReac Type Severity Reaction Status Date / Time No Known Allergies Allergy Verified 08/07/21 15:02 [No Known Allergies*] Active Medications: Current Medications Acetaminophen (Acetaminophen 325 Mg Tablet) 650 mg PO Q6H PRN PRN Reason: Pain, Mild (Pain Scale 1-3) Albuterol Sulfate (Albuterol Sulfate 90 Mcg 8 Gm Inhaler) 2 puff INHALE Q6H PRN PRN Reason: shortness of breath or wheezing Buprenorphine/Naloxone (Buprenorphine/Naloxone 2/0.5mg Film) 1 film SUBLINGUAL TID [facility] Buspirone HCl (Buspirone Hcl 5 Mg Tablet) 15 mg PO BID [facility] Calcitonin [place] (Calcitonin,[place],Synth Nasal 3.7 Ml Bottle) 1 spray NOSTRILALT DAILY [facility] Duloxetine HCl (Duloxetine Hcl 60 Mg Capsule.Dr) 60 mg PO BID [facility] Enoxaparin Sodium (Enoxaparin Sodium 40 Mg/0.4 Ml Syringe) 40 mg SUBCUT Q24H [facility] Gabapentin (Gabapentin 400 Mg Capsule) 800 mg PO TID [facility] Hydrochlorothiazide (Hydrochlorothiazide 25 Mg Tablet) 25 mg PO DAILY [facility]; Protocol Sodium Chloride (Ns) 1,000 mls @ 125 mls/hr IVCONT .Q8H [facility] Last Admin: 12/23/21 16:10 Dose: 125 mls/hr Multivitamins/Vitamin C (Multivitamin Tablet) 1 tab PO DAILY [facility] Omeprazole (Omeprazole 20 Mg Capsule.Dr) 20 mg PO DAILY@0630 [facility] Ondansetron HCl (Ondansetron Hcl 4 Mg/2 Ml Vial) 4 mg IVPUSH Q6H PRN PRN Reason: Nausea and Vomiting Pharmacy Consult (Consult Rx Perform Med Rec) 1 each MISCELLANE ONCE PRN PRN Reason: Consult order Pramipexole Dihydrochloride (Pramipexole Di-Hcl 0.125 Mg Tablet) 0.125 mg PO BID [facility] Prednisone (Prednisone 10 Mg Tablet) 10 mg PO DIRECTED [facility] Sodium Chloride (0.9 % Sodium Chloride Flush 3 Ml Syringe) 3 ml IVFLUSH QSHIFT [facility] Last Admin: 12/23/21 16:11 Dose: 3 ml Sodium Chloride (Sodium Chloride 0.65 % Nasal 44 Ml Sprbtl) 2 spray NOSTRIL-B QID PRN PRN Reason: Nasal Congestion Thiamine HCl (Thiamine Hcl 100 Mg Tablet) 100 mg PO DAILY [facility] Tobramycin Sulfate (Tobramycin Sulfate 0.3% Pati Op 5 Ml Btl) 1 drop EYE-BOTH QID [facility] Triamterene/Hydrochlorothiazide (Triamterene/Hctz 37.5/25 Tablet) 1 tab PO DAILY [facility]; Protocol Vitamin D (Cholecalciferol (Vitamin D3) 25 Mcg Tablet) 125 mcg PO DAILY [facility] Home Medications Medication Instructions Recorded Confirmed Last Taken Type buspirone 15 mg tablet 15 mg PO BID 04/17/20 12/23/21 Unknown History duloxetine 60 mg capsule,delayed 60 mg PO BID 04/17/20 12/23/21 Unknown History release gabapentin 800 mg tablet 800 mg PO TID 04/17/20 12/23/21 Unknown History buprenorphine 2 mg-naloxone 0.5 mg 1 film sublingual TID 04/26/20 12/23/21 Unknown History sublingual film pramipexole 0.125 mg tablet 0.125 mg PO BID 04/26/20 12/23/21 Unknown History acetaminophen 500 mg tablet 1,000 mg PO Q8H 12/21/21 12/23/21 Unknown History albuterol sulfate 90 mcg/actuation 2 puff inhalation Q6H PRN 12/21/21 12/23/21 Unknown History aerosol inhaler shortness of breath or wheezing cholecalciferol (vitamin D3) 125 125 mcg PO DAILY 12/21/21 12/23/21 Unknown History mcg (5,000 unit) capsule fexofenadine 180 mg tablet 180 mg PO DAILY 12/21/21 12/23/21 Unknown History fluticasone propionate 110 2 puff inhalation BID 12/21/21 12/23/21 Unknown History mcg/actuation HFA aerosol inhaler (Flovent HFA) hydrochlorothiazide 25 mg tablet 25 mg PO DAILY 12/21/21 12/23/21 Unknown History methyl salicylate 30 %-menthol 10 1 appl topical TID PRN Muscle Pain 12/21/21 12/23/21 Unknown History % topical cream (Icy Hot) cjybqxgn-ptu-sapri acid 0.4 1 tab PO DAILY 12/21/21 12/23/21 Unknown History mg-lycopene 300 mcg-lutein 250 mcg tablet (Cerovite Senior) pantoprazole 40 mg tablet,delayed 40 mg PO DAILY 12/21/21 12/23/21 Unknown History release prednisone 10 mg tablet 10 mg PO DIRECTED 12/21/21 12/23/21 Unknown History sodium chloride 0.65 % nasal spray 2 spray intranasal QID PRN Nasal 12/21/21 12/23/21 Unknown History aerosol ([place] Nasal) Congestion thiamine HCl (vitamin B1) 100 mg 100 mg PO DAILY 12/21/21 12/23/21 Unknown History tablet tobramycin 0.3 % eye drops (Tobrex) 1 drp ophthalmic (eye) QID 12/21/21 12/23/21 Unknown History triamterene 37.5 1 tab PO DAILY 12/21/21 12/23/21 Unknown History mg-hydrochlorothiazide 25 mg tablet Physical Exam Vital Signs and Narrative: Vital Signs: Last Vital Signs Temp 97.9 F 12/23/21 15:21 Pulse 128 H 12/23/21 15:21 Resp 16 12/23/21 15:21 BP 138/96 H 12/23/21 15:21 Pulse Ox 99 12/23/21 15:21 O2 Del Method 12/23/21 15:21 O2 Flow Rate 2 12/23/21 15:21 BMI result Body Mass Index 31.9 Const: Other: ill-appearing female in no acute distress Resp: Other: clear to auscultation bilaterally no rales rhonchi or wheezes Cardio: Other: concurrently; no S4; positive S1-S2; no S3 murmurs rubs or gallops GI: Other: soft nontender nondistended with normoactive bowel sounds Neuro: Other: cranial nerves 2-12 grossly intact as tested. Motor is 5/5 all extremities. Sensation is intact. Cognition appropriate Extrem: Other: no edema bilaterally Results Labs CBC and Chem 7: 12/23/21 07:31 12/23/21 07:31 Labs: Laboratory Results - last 24 hr 12/23/21 12/23/21 12/23/21 07:21 07:21 07:31 MCV 93.5 MCH 30.7 MCHC 32.8 RDW 15.8 Plt Count 168 MPV 9.1 L Immature Gran % (Auto) 1.3 H Neut % (Auto) 69.1 Lymph % (Auto) 21.4 [place] % (Auto) 4.4 Eos % (Auto) 3.6 Baso % (Auto) 0.2 Lymph # (Auto) 1.2 [place] # (Auto) 0.2 Eos # (Auto) 0.2 Baso # (Auto) 0.0 Abs Immat Gran (auto) 0.07 H Absolute Neuts (auto) 3.8 Absolute Nucleated RBC 0.000 Nucleated RBC % (auto) 0.0 D-Dimer High Sensitivty O2 Saturation ABG pH at Pt Temp ABG pCO2 at Pt Temp ABG pO2 at Pt Temp ABG HCO3 ABG Base Excess (Actual) Anion Gap Estim Creat Clear Calc Estimated GFR Random Glucose Calcium Magnesium Total Bilirubin Direct Bilirubin AST ALT Alkaline Phosphatase Troponin I High Sens B-Natriuretic Peptide Total Protein Albumin Lipase Urine Color YELLOW Urine Appearance CLEAR Urine pH 7.0 Ur Specific [place] 1.010 Urine Protein NEG Urine Glucose (UA) NEG Urine Ketones NEG Urine Blood NEG Urine Nitrite NEG Ur Leukocyte Esterase NEG Influenza Type A (PCR) NEGATIVE Influenza Type B (PCR) NEGATIVE RSV RNA Qual (PCR) NEGATIVE SARS-CoV-2 RNA (RT-PCR) NEGATIVE 12/23/21 12/23/21 12/23/21 07:31 07:31 10:46 MCV MCH MCHC RDW Plt Count MPV Immature Gran % (Auto) Neut % (Auto) Lymph % (Auto) [place] % (Auto) Eos % (Auto) Baso % (Auto) Lymph # (Auto) [place] # (Auto) Eos # (Auto) Baso # (Auto) Abs Immat Gran (auto) Absolute Neuts (auto) Absolute Nucleated RBC Nucleated RBC % (auto) D-Dimer High Sensitivty O2 Saturation 97.0 ABG pH at Pt Temp 7.50 H ABG pCO2 at Pt Temp 37 ABG pO2 at Pt Temp 101 ABG HCO3 29 H ABG Base Excess (Actual) 6.0 Anion Gap 10 L Estim Creat Clear Calc 54.5 Estimated GFR 59 Random Glucose 134 H Calcium 14.0 H* D Magnesium 1.6 Total Bilirubin 0.5 Direct Bilirubin 0.2 AST 15 ALT 14 Alkaline Phosphatase 70 Troponin I High Sens < 3.5 B-Natriuretic Peptide 91 Total Protein 6.0 L Albumin 3.1 L Lipase 5 L Urine Color Urine Appearance Urine pH Ur Specific [place] Urine Protein Urine Glucose (UA) Urine Ketones Urine Blood Urine Nitrite Ur Leukocyte Esterase Influenza Type A (PCR) Influenza Type B (PCR) RSV RNA Qual (PCR) SARS-CoV-2 RNA (RT-PCR) 12/23/21 12:08 MCV MCH MCHC RDW Plt Count MPV Immature Gran % (Auto) Neut % (Auto) Lymph % (Auto) [place] % (Auto) Eos % (Auto) Baso % (Auto) Lymph # (Auto) [place] # (Auto) Eos # (Auto) Baso # (Auto) Abs Immat Gran (auto) Absolute Neuts (auto) Absolute Nucleated RBC Nucleated RBC % (auto) D-Dimer High Sensitivty 410 O2 Saturation ABG pH at Pt Temp ABG pCO2 at Pt Temp ABG pO2 at Pt Temp ABG HCO3 ABG Base Excess (Actual) Anion Gap Estim Creat Clear Calc Estimated GFR Random Glucose Calcium Magnesium Total Bilirubin Direct Bilirubin AST ALT Alkaline Phosphatase Troponin I High Sens B-Natriuretic Peptide Total Protein Albumin Lipase Urine Color Urine Appearance Urine pH Ur Specific [place] Urine Protein Urine Glucose (UA) Urine Ketones Urine Blood Urine Nitrite Ur Leukocyte Esterase Influenza Type A (PCR) Influenza Type B (PCR) RSV RNA Qual (PCR) SARS-CoV-2 RNA (RT-PCR) Imaging Radiologist's Impressions: Impressions Chest X-Ray 12/23/21 07:40 IMPRESSION: No evidence for acute disease in the chest. Cervical Spine CT 12/23/21 09:06 IMPRESSION: 1. Multilevel degenerative changes without significant change. No definitive acute abnormality. Fleischner guidelines were followed. Head CT 12/23/21 09:07 IMPRESSION: No acute intracranial pathology. No significant interval change. Abdomen/Pelvis CT 12/23/21 14:26 IMPRESSION: CT angiography chest: *CT angiography negative for pulmonary emboli. *No acute cardiopulmonary abnormalities identified. No evidence of pneumonia or active pulmonary edema. *Moderate diffuse aortic calcific atherosclerosis. *Partial visualization of dermal thickening of the left breast. Findings could represent chronic scarring or acute traumatic inflammatory changes. Alternatively, findings could represent cellulitis or possible inflammatory carcinoma. Consider further evaluation with dedicated mammography of the left breast as clinically indicated. *Partially healed subacute fracture of the lateral segment of the left 10th rib. This finding demonstrates evidence of interval progression of healing compared with 08/17/2021. CT abdomen and pelvis: *Moderate focal subcutaneous inflammatory changes along the left flank new compared with 08/17/2021. Mild subcutaneous reticulation adjacent to the right hip. Both findings may represent acute traumatic soft tissue inflammatory changes. *Partially healed, subacute fracture of the lateral segment of the left 10th rib with interval progression of healing compared with 08/17/2021. *Mild diffuse intrahepatic biliary duct dilatation and moderate diffuse prominence of the common bile duct. Findings are slightly increased in prominence compared with 08/17/2021. No cholelithiasis identified though CT has low sensitivity in the detection of cholelithiasis. As clinically indicated, consider further evaluation with right upper quadrant ultrasound. *Mild colonic diverticulosis. No evidence of acute diverticulitis. *Small hiatal hernia. Chest CTA 12/23/21 14:26 IMPRESSION: CT angiography chest: *CT angiography negative for pulmonary emboli. *No acute cardiopulmonary abnormalities identified. No evidence of pneumonia or active pulmonary edema. *Moderate diffuse aortic calcific atherosclerosis. *Partial visualization of dermal thickening of the left breast. Findings could represent chronic scarring or acute traumatic inflammatory changes. Alternatively, findings could represent cellulitis or possible inflammatory carcinoma. Consider further evaluation with dedicated mammography of the left breast as clinically indicated. *Partially healed subacute fracture of the lateral segment of the left 10th rib. This finding demonstrates evidence of interval progression of healing compared with 08/17/2021. CT abdomen and pelvis: *Moderate focal subcutaneous inflammatory changes along the left flank new compared with 08/17/2021. Mild subcutaneous reticulation adjacent to the right hip. Both findings may represent acute traumatic soft tissue inflammatory changes. *Partially healed, subacute fracture of the lateral segment of the left 10th rib with interval progression of healing compared with 08/17/2021. *Mild diffuse intrahepatic biliary duct dilatation and moderate diffuse prominence of the common bile duct. Findings are slightly increased in prominence compared with 08/17/2021. No cholelithiasis identified though CT has low sensitivity in the detection of cholelithiasis. As clinically indicated, consider further evaluation with right upper quadrant ultrasound. *Mild colonic diverticulosis. No evidence of acute diverticulitis. *Small hiatal hernia. Assessment and Plan (1) Hypercalcemia: Status: Acute (2) New onset atrial fibrillation: Status: Acute (3) Asthma-COPD overlap syndrome: Status: Acute (4) Diabetes mellitus, type 2: Status: Acute Plan 71-year-old female with history of multiple mechanical falls presents today after same. In the emergency room, routine labs demonstrate a calcium that corrects to 14.7. Patient also found to be in new onset atrial fibrillation with a rapid ventricular response. Initial workup including CTA of chest, CT abdomen pelvis, CT head failed to demonstrate any acute pathology that could explain hypercalcemia. During at episode of vomiting, patient spontaneously converted to normal sinus rhythm 1. Hypercalcemia - patient received 2 L of normal saline in the emergency room. Continue normal saline at 150/hr - nasal calcitonin x2 days -follow renals/divalentsdaily -discussed with Renal. Will see in am 2.New onset AFib - spontaneously converted to normal sinus rhythm during episode of vomiting - EKG without significant changes; will repeat troponin tonight and tomorrow morning - observe on telemetry 3.Asthma/COPD overlap - albuterol inhaler 2 puffs q.6 hours p.r.n. wheezing 4. DMII - acceptable control - cover with lispro correctional scale full code Lovenox will require 2 midnights going forward for IV volume repletion to treat hypercalcemia. This cannot be done and a lesser acute setting Quality Stroke Does the patient have a stroke diagnosis?: No VTE Prior VTE?: No VTE Risk Level:: Medical - moderate - high VTE Device Contraindication: Treatment Not Indicated VTE Drug Contraindication: N/A - Med Ordered
[2021-12-23] MEDS: 0.9 % Sodium Chloride 1,000 ML 150 ML IVCONT ×2 (16:53→22:29)
[2021-12-23] MEDS: Enoxaparin Sodium 40 MG/0.4 ML SYRINGE SUBCUT (17:05)
[2021-12-23] MEDS: Calcitonin,Salmon,Synth Nasal 3.7 ML BOTTLE 1 SPRAY NOSTRILALT (17:07)
--- NOTE | 2021-12-23 17:09 | PC.NURSE ---
calicitonin nasal spray administered as ordered to both nares . patient tolerated well .
--- NOTE | 2021-12-23 18:07 | PC.NURSE ---
Patient had episode of bradycardia at 1515 in 30's . vomiting became tachycardia into 140-150 and then 5 minute later became sinus rhythm in the 80. Obtained EKG . Dr. Moyer aware .. Continue to monitor .
[2021-12-23] MEDS: Tobramycin Sulfate 0.3% Sol Op 5 ML BTL 1 DROP EYE-BOTH ×2 (19:16→22:29)
[2021-12-23] MEDS: DULoxetine HCl 60 MG CAPSULE.DR PO (22:28)
[2021-12-23] MEDS: busPIRone HCl 5 MG TABLET 15 MG PO (22:28)
[2021-12-23] MEDS: Buprenorphine/Naloxone 2/0.5mg FILM 1 FILM SUBLINGUAL (22:28)
[2021-12-23] MEDS: Gabapentin 400 MG CAPSULE 800 MG PO (22:29)
[2021-12-23] MEDS: Pramipexole Di-HCL 0.125 MG TABLET PO (22:34)
[2021-12-23 23:51] LABS: Vitamin D 25-OH Total 43.8 ng/mL (>30)
--- NOTE | 2021-12-24 | ECG_ITS ---
Test Reason : EVEVATED HEAR RATE Blood Pressure : / mmHG Vent. Rate : 113 BPM Atrial Rate : 113 BPM P-R Int : 132 ms QRS Dur : 084 ms QT Int : 350 ms P-R-T Axes : 062 -05 017 degrees QTc Int : 480 ms Sinus tachycardia Inferior infarct , age undetermined Abnormal ECG When compared with ECG of 23-DEC-2021 16:02, Inferior infarct is now Present Referred By: Armando Moyer Electronically Signed By:Ryan Field
[2021-12-24] MEDS: 0.9 % Sodium Chloride 1,000 ML 150 ML IVCONT ×3 (05:49→21:59)
[2021-12-24] MEDS: ondansetron HCL 4 MG/2 ML VIAL IVPUSH (05:58)
[2021-12-24 06:35] VITALS: BP 185/101; PULSE 85; RESP 16; TEMP 36.6; O2SAT 95
[2021-12-24 07:06] LABS: MANUAL DIFF FLAG NO
[2021-12-24 07:19] LABS: Basophils Percent Auto 0.1 % (0-2); Eosinophils Percent Auto 0.6 % (0-4); Hematocrit 31.2 % (37.0-47.0); Hemoglobin 10.2 g/dl (12.0-16.0); Imm Gran Abs Auto 0.08 X10*3/uL (0.00-0.03); Imm Gran Pct Auto 1.2 % (0.0-0.4); Lymphocytes Absolute Auto 1.2 X10*3/uL (1.2-4.9); Lymphocytes Percent Auto 16.8 % (20-40); Mean Corpuscular HGB Conc 32.7 g/dl (31.0-35.0); Mean Corpuscular Hemoglobin 30.4 pg (27.0-33.0); Mean Corpuscular Volume 92.9 fL (80.0-98.0); Mean Platelet Volume 9.2 fL (9.4-12.3); Monocytes Absolute Auto 0.4 X10*3/uL (0.1-1.2); Monocytes Percent Auto 5.5 % (2-11); Neutrophils Absolute Auto 5.3 x10*3/uL (2.0-8.3); Neutrophils Percent Auto 75.8 % (45-73); Platelet Count 172 X10*3/uL (160-400); Red Blood Count 3.36 X10*6/uL (4.20-5.50); Red Cell Distribution Width 15.9 % (11.0-16.0); White Blood Count 6.9 X10*3/uL (4.8-10.8)
[2021-12-24 07:37] LABS: Alanine Aminotransferase 14 U/L (0-31); Albumin Level 2.9 g/dL (3.5-5.0); Alkaline Phosphatase 62 U/L (39-117); Anion Gap 12 (12-20); Aspartate Amino Transferase 20 U/L (5-31); Bilirubin Total 0.7 mg/dL (0.0-1.0); Blood Urea Nitrogen 22 mg/dL (9-16); Calcium 11.9 mg/dL (8.4-10.2); Carbon Dioxide 28 mmol/L (22-29); Chloride 103 mmol/L (96-108); Creatinine Clr Calc Pharmacy 49.7; Estimated Glomerular Filt Rate 53; Glucose Fasting 107 mg/dL (60-99); Potassium 3.5 mmol/L (3.3-5.1); Sodium 139 mmol/L (135-145); Total Protein 5.8 g/dL (6.5-8.0)
[2021-12-24] MEDS: Buprenorphine/Naloxone 2/0.5mg FILM 1 FILM SUBLINGUAL ×2 (08:02→21:54)
--- NOTE | 2021-12-24 08:05 | PC.NURSE ---
Pt c/o increased nausea and unable to take AM meds at this time. Dr Greta Moyer made aware. Awaiting further orders.
[2021-12-24] MEDS: Prochlorperazine Edisylate 10 MG/2 ML VIAL IVPUSH (09:21)
[2021-12-24 09:25] VITALS: BP 162/80; PULSE 87
[2021-12-24] MEDS: Tobramycin Sulfate 0.3% Sol Op 5 ML BTL 1 DROP EYE-BOTH ×3 (09:25→22:00)
[2021-12-24] MEDS: Calcitonin,Salmon,Synth Nasal 3.7 ML BOTTLE 1 SPRAY NOSTRILALT (09:25)
[2021-12-24] MEDS: Sodium Chloride 0.65 % Nasal 44 ML SPRBTL 2 SPRAY NOSTRIL-B (09:25)
[2021-12-24] MEDS: Pramipexole Di-HCL 0.125 MG TABLET PO ×2 (09:25→21:54)
[2021-12-24] MEDS: Omeprazole 20 MG CAPSULE.DR PO (09:26)
[2021-12-24] MEDS: busPIRone HCl 5 MG TABLET 15 MG PO ×2 (09:26→21:53)
[2021-12-24] MEDS: Thiamine HCL 100 MG TABLET PO (09:26)
[2021-12-24] MEDS: DULoxetine HCl 60 MG CAPSULE.DR PO ×2 (09:26→21:54)
[2021-12-24] MEDS: Cholecalciferol (Vitamin D3) 25 MCG TABLET 125 MCG PO (09:26)
[2021-12-24] MEDS: Multivitamin TABLET 1 TAB PO (09:26)
[2021-12-24] MEDS: Furosemide 20 MG TABLET PO (09:26)
[2021-12-24] MEDS: Gabapentin 400 MG CAPSULE 800 MG PO ×2 (09:26→21:54)
--- NOTE | 2021-12-24 13:12 | MHC.CM.PN ---
Attempted to meet with patient in regards to discharge planning. Patient currently sleeping. No family present. Copy of HCP obtained from [facility]. Patient is active with [facility]. Spoke with Ludivina at [facility] via telephone at [phone]. Ludivina verified she is active with their program. PCP is Dr Kay. [facility] provides home health aides weekly, nursing frequently and physical therapy just started with patient on Friday. Patient has weekly standing appointments at [facility] for Suboxone on . Continue to [facility] for d/c needs.
--- NOTE | 2021-12-24 15:21 | HO.PM.IMPN ---
Subjective Subjective Date of Service: 12/24/21 Interval History: voices no specific complaints. Intermittently somnolent but arousable Review of Systems Denies chest pain Denies shortness of breath Admits nausea vomiting ; nodiarrhea Denies fever chills Physical Exam Vital Signs: Vital Signs: Last Vital Signs Temp 97.8 F 12/24/21 06:35 Pulse 87 12/24/21 09:25 Resp 16 12/24/21 06:35 BP 162/80 H 12/24/21 09:25 Pulse Ox 95 12/24/21 06:35 O2 Del Method 12/24/21 06:35 O2 Flow Rate 2 12/24/21 06:35 BMI result Body Mass Index 31.9 Const: Other: ill-appearing female in no acute distress Resp: Other: clear to auscultation bilaterally no rales rhonchi or wheezes Cardio: Other: concurrently; no S4; positive S1-S2; no S3 murmurs rubs or gallops GI: Other: soft nontender nondistended with normoactive bowel sounds Neuro: Other: cranial nerves 2-12 grossly intact as tested. Motor is 5/5 all extremities. Sensation is intact. Cognition appropriate Extrem: Other: no edema bilaterally Objective Data Active Medications Acetaminophen (Acetaminophen 325 Mg Tablet) 650 mg PO Q6H PRN PRN Reason: Pain, Mild (Pain Scale 1-3) Albuterol Sulfate (Albuterol Sulfate 90 Mcg 8 Gm Inhaler) 2 puff INHALE Q6H PRN PRN Reason: shortness of breath or wheezing Buprenorphine/Naloxone (Buprenorphine/Naloxone 2/0.5mg Film) 1 film SUBLINGUAL TID [facility] Last Admin: 12/24/21 14:19 Dose: Not Given Documented By: DUANE Non-Admin Reason: Physician Held Med Comments: provider stated to hold med due to pt AMS and lethargy Buspirone HCl (Buspirone Hcl 5 Mg Tablet) 15 mg PO BID [facility] Last Admin: 12/24/21 09:26 Dose: 15 mg Documented By: DUANE Calcitonin [place] (Calcitonin,[place],Synth Nasal 3.7 Ml Bottle) 1 spray NOSTRILALT DAILY [facility] Last Admin: 12/24/21 09:25 Dose: 1 spray Documented By: DUANE Duloxetine HCl (Duloxetine Hcl 60 Mg Capsule.) 60 mg PO BID [facility] Last Admin: 12/24/21 09:26 Dose: 60 mg Documented By: DUANE Enoxaparin Sodium (Enoxaparin Sodium 40 Mg/0.4 Ml Syringe) 40 mg SUBCUT Q24H [facility] Last Admin: 12/23/21 17:05 Dose: 40 mg Documented By: ILYA Furosemide (Furosemide 20 Mg Tablet) 20 mg PO DAILY [facility]; Protocol Last Admin: 12/24/21 09:26 Dose: 20 mg Documented By: DUANE Gabapentin (Gabapentin 400 Mg Capsule) 800 mg PO TID [facility] Last Admin: 12/24/21 14:19 Dose: Not Given Documented By: DUANE Non-Admin Reason: Physician Held Med Comments: provider stated to hold med due to pt AMS and lethargy Sodium Chloride (Ns) 1,000 mls @ 150 mls/hr IVCONT .Q6H40M [facility] Last Admin: 12/24/21 14:02 Dose: 150 mls/hr Documented By: DUANE Multivitamins/Vitamin C (Multivitamin Tablet) 1 tab PO DAILY [facility] Last Admin: 12/24/21 09:26 Dose: 1 tab Documented By: DUANE Omeprazole (Omeprazole 20 Mg Capsule.) 20 mg PO DAILY@0630 [facility] Last Admin: 12/24/21 09:26 Dose: 20 mg Documented By: DUANE Ondansetron HCl (Ondansetron Hcl 4 Mg/2 Ml Vial) 4 mg IVPUSH Q6H PRN PRN Reason: Nausea and Vomiting Last Admin: 12/24/21 05:58 Dose: 4 mg Documented By: MARBELLA Pharmacy Consult (Consult Rx Perform Med Rec) 1 each MISCELLANE ONCE PRN PRN Reason: Consult order Pramipexole Dihydrochloride (Pramipexole Di-Hcl 0.125 Mg Tablet) 0.125 mg PO BID [facility] Last Admin: 12/24/21 09:25 Dose: 0.125 mg Documented By: DUANE Sodium Chloride (0.9 % Sodium Chloride Flush 3 Ml Syringe) 3 ml IVFLUSH QSHIFT [facility] Last Admin: 12/24/21 09:27 Dose: Not Given Documented By: DUANE Non-Admin Reason: IV Running Sodium Chloride (Sodium Chloride 0.65 % Nasal 44 Ml Sprbtl) 2 spray NOSTRIL-B QID PRN PRN Reason: Nasal Congestion Last Admin: 12/24/21 09:25 Dose: 2 spray Documented By: DUANE Thiamine HCl (Thiamine Hcl 100 Mg Tablet) 100 mg PO DAILY [facility] Last Admin: 12/24/21 09:26 Dose: 100 mg Documented By: DUANE Tobramycin Sulfate (Tobramycin Sulfate 0.3% Pati Op 5 Ml Btl) 1 drop EYE-BOTH QID [facility] Last Admin: 12/24/21 14:05 Dose: 1 drop Documented By: DUANE Vitamin D (Cholecalciferol (Vitamin D3) 25 Mcg Tablet) 125 mcg PO DAILY [facility] Last Admin: 12/24/21 09:26 Dose: 125 mcg Documented By: DUANE Labs CBC & Chem 7: 12/24/21 06:55 12/24/21 06:55 Labs: Laboratory Results - last 24 hr 12/23/21 12/24/21 12/24/21 07:31 06:55 06:55 MCV 92.9 MCH 30.4 MCHC 32.7 RDW 15.9 Plt Count 172 MPV 9.2 L Immature Gran % (Auto) 1.2 H Neut % (Auto) 75.8 H Lymph % (Auto) 16.8 L [place] % (Auto) 5.5 Eos % (Auto) 0.6 Baso % (Auto) 0.1 Lymph # (Auto) 1.2 [place] # (Auto) 0.4 Eos # (Auto) 0.0 Baso # (Auto) 0.0 Abs Immat Gran (auto) 0.08 H Absolute Neuts (auto) 5.3 Absolute Nucleated RBC 0.000 Nucleated RBC % (auto) 0.0 Anion Gap 12 Estim Creat Clear Calc 49.7 Estimated GFR 53 Fasting Glucose 107 H Calcium 11.9 H D Total Bilirubin 0.7 AST 20 ALT 14 Alkaline Phosphatase 62 Total Protein 5.8 L Albumin 2.9 L 25-OH Vitamin D Total 43.8 Assessment and Plan (1) Hypercalcemia: Status: Acute (2) New onset atrial fibrillation: Status: Acute (3) Asthma-COPD overlap syndrome: Status: Acute (4) Diabetes mellitus, type 2: Status: Acute Plan 71-year-old female with history of multiple mechanical falls presents today after same. In the emergency room, routine labs demonstrate a calcium that corrects to 14.7. Patient also found to be in new onset atrial fibrillation with a rapid ventricular response. Initial workup including CTA of chest, CT abdomen pelvis, CT head failed to demonstrate any acute pathology that could explain hypercalcemia. During at episode of vomiting, patient spontaneously converted to normal sinus rhythm 1. Hypercalcemia - continue normal saline solution at 150/hour - nasal calcitonin x2 days -follow renals/divalentsdaily -discussed with Renal. Will see in am 2.New onset AFib - remains in normal sinus rhythm. - Continue to monitor 3.Asthma/COPD overlap - albuterol inhaler 2 puffs q.6 hours p.r.n. wheezing 4. DMII - acceptable control - cover with lispro correctional scale full code Lovenox Requires ongoing hospitalization for IV saline to correct hypercalcemia Quality Stroke Does the patient have a stroke diagnosis?: No VTE Prior VTE?: No VTE Risk Level:: Medical - moderate - high VTE Device Contraindication: Treatment Not Indicated VTE Drug Contraindication: N/A - Med Ordered
[2021-12-24 16:00] VITALS: BP 154/98; PULSE 107; RESP 16; TEMP 36.7; O2SAT 98
[2021-12-24 16:02] LABS: Troponin-I High Sensitivity 24.2 ng/L (<3.5-17.0)
[2021-12-24 17:17] LABS: PTHI <6 pg/mL (16-77)
[2021-12-24] MEDS: Enoxaparin Sodium 40 MG/0.4 ML SYRINGE SUBCUT (17:45)
[2021-12-24 18:49] VITALS: BP 135/78; PULSE 97; RESP 16; TEMP 36.7; O2SAT 92
[2021-12-24 20:00] VITALS: BP 135/78; PULSE 97; RESP 16; TEMP 36.7; O2SAT 92
--- NOTE | 2021-12-24 20:32 | MHC.CM.PN ---
CM attempted to meet with patient to review IMM. Pt opens eyes to name, but then immediately falls asleep.Unable to complete CM interview at this time. CM to follow for d/c needs.
[2021-12-24 23:55] VITALS: BP 180/97; PULSE 113; RESP 18; TEMP 36.3; O2SAT 93
[2021-12-25] VITALS (8 sets, daily range): BP systolic 102–138; BP diastolic 60–79; PULSE 89–104; RESP 16–20; TEMP 36.4–37.7; O2SAT 89–95
[2021-12-25] MEDS: 0.9 % Sodium Chloride 1,000 ML 150 ML IVCONT (05:11)
[2021-12-25 06:19] LABS: MANUAL DIFF FLAG NO
[2021-12-25 06:31] LABS: Basophils Percent Auto 0.2 % (0-2); Eosinophils Absolute Auto 0.1 X10*3/uL (0.0-0.4); Eosinophils Percent Auto 1.7 % (0-4); Hematocrit 28.8 % (37.0-47.0); Hemoglobin 9.5 g/dl (12.0-16.0); Imm Gran Abs Auto 0.06 X10*3/uL (0.00-0.03); Lymphocytes Absolute Auto 0.9 X10*3/uL (1.2-4.9); Lymphocytes Percent Auto 14.5 % (20-40); Mean Corpuscular Hemoglobin 30.6 pg (27.0-33.0); Mean Corpuscular Volume 92.9 fL (80.0-98.0); Mean Platelet Volume 9.3 fL (9.4-12.3); Monocytes Absolute Auto 0.4 X10*3/uL (0.1-1.2); Monocytes Percent Auto 6.3 % (2-11); Neutrophils Absolute Auto 4.6 x10*3/uL (2.0-8.3); Neutrophils Percent Auto 76.3 % (45-73); Platelet Count 145 X10*3/uL (160-400); Red Cell Distribution Width 16.1 % (11.0-16.0); White Blood Count 6.1 X10*3/uL (4.8-10.8)
[2021-12-25] MEDS: Omeprazole 20 MG CAPSULE.DR PO (06:44)
[2021-12-25 06:55] LABS: Alanine Aminotransferase 13 U/L (0-31); Albumin Level 2.4 g/dL (3.5-5.0); Alkaline Phosphatase 66 U/L (39-117); Anion Gap 7 (12-20); Aspartate Amino Transferase 17 U/L (5-31); Bilirubin Total 0.7 mg/dL (0.0-1.0); Blood Urea Nitrogen 24 mg/dL (9-16); Carbon Dioxide 31 mmol/L (22-29); Chloride 102 mmol/L (96-108); Creatinine Clr Calc Pharmacy 50.7; Estimated Glomerular Filt Rate 54; Glucose Fasting 95 mg/dL (60-99); Potassium 3.2 mmol/L (3.3-5.1); Sodium 137 mmol/L (135-145); Total Protein 4.7 g/dL (6.5-8.0)
--- NOTE | 2021-12-25 07:00 | CA_ITS ---
Transthoracic Echocardiogram Patient (Last, First, Middle): Aracelis Plascencia, Gender: Female Date of : 1950 Age: 71 Procedure Date: 12/25/2021 Procedure Type: Transthoracic Echocardiogram [place] [facility] [place]: 160.02 cm Weight: 180. kg BSA: 2.59 m2 Heart Rate: 90 bpm BP: 118 / 69 mmHg Automobile Rental Clerk: SB Referring MD: Alonso Maguire MD Symptoms: afib Study Quality: Adequate ECG Rhythm: Sinus Conclusions: - Normal left ventricular size and systolic function. The visually estimated ejection fraction is between 60-65%. - Mildly increased right ventricular cavity size. There is normal right ventricular systolic function. - There is mild tricuspid valve regurgitation. Mildly elevated right atrial pressure. - There is mild dilatation of the ascending aorta measuring 3.60 cm. Findings Left Ventricle Normal left ventricular size and systolic function. The visually estimated ejection fraction is between 60-65%. There is no evidence of regional wall motion abnormalities. Diastolic function is normal for age. There is moderate septal asymmetric hypertrophy. Right Ventricle Mildly increased right ventricular cavity size. There is normal right ventricular systolic function. Atria Both atria are normal in size. Aortic Valve There is a normal trileaflet aortic valve. There is mild thickening of the aortic valve. There is no aortic valve stenosis. There is no aortic valve regurgitation. Mitral Valve The mitral valve appears normal. There is no mitral valve regurgitation. There is no mitral valve stenosis. Pulmonic Valve Normal pulmonic valve structure and function. There is trace pulmonic valve regurgitation. Tricuspid Valve Normal tricuspid valve structure. There is mild tricuspid valve regurgitation. Mildly elevated right atrial pressure. There is no evidence of pulmonary hypertension. Great Vessels There is mild dilatation of the ascending aorta measuring 3.60 cm. The visualized portions of the pulmonary artery and branches are normal. Venous The inferior vena cava is normal in size and does not collapse with inspiration. Pericardium/Pleural There is no evidence of pericardial effusion. Prior Study Comparison No prior study available for comparison. Measurements 2D Linear Measurements IVSd: 1.23 0.6-0.9/0.6-1.0 cm LVIDd: 3.63 3.9-5.3/4.2-5.9 cm LVIDs: 2.62 2.0-3.6 cm LVPWd: 0.84 0.7-1.1 cm LA Diam: 3.30 2.7-3.8/3.0-4.0 cm LV Mass: 143.26 67-162/88-224 g LVOT Diam: 2.00 3.0+(-)1.3 cm 2D Systolic Function EF 4C: 64.60 >55% EF 2C: 62.50 >55% EF BiP: 63.00 >55% Mitral Valve MV Pk E: 0.73 MV PK A: 0.62 MV Decel Time: 193.00 E/A: 1.20 E'Lateral: 10.70 E'Medial: 7.51 E/E' Med: 9.70 E/E' Lat: 6.80 PHT: 56.00 MVA PHT: 3.93 Decel [place]: 3.78 Aortic Valve AoV Pk Raffi: 1.57 AoV Mn Raffi: 0.96 AoV VTI: 0.22 AoV Pk Grad: 10.00 Aov Mn Grad: 4.00 DONY Cont.VTI: 3.76 LVOT LVOT Pk Raffi: 1.53 LVOT Mn Raffi: 1.00 LVOT VTI: 0.27 LVOT Pk Grad: 9.00 LVOT Mn Grad: 5.00 LVOT Diam: 2.00 LVOT Area: 3.14 Diastolic Function MV Pk E: 0.73 MV Pk A: 0.62 E/A: 1.20 E'Medial: 7.51 E/E' Med: 9.70 E' Laterial: 10.70 E/E' Lat: 6.80 Right Ventricle TAPSE (mm): 19.50 TVS' Raffi: 16.00 Tricuspid Valve TR Pk Raffi: 2.36 TR Pk Grad: 22.00 RA Press: 8.00 RVSP: 30.00 Great Vessels Aorta Sinus of Valsalva: 3.51 2.0-3.5 cm Ao Asc: 3.60 2.1-3.4 cm Pulmonary Valve PV Pk Raffi: 1.26 Peak PV Grad: 6.00 Updated in Other Vendor System with Status of Final Ryan Field MD electronically signed on 12/25/2021 4:30:15 PM with status of Final
[2021-12-25] MEDS: Acetaminophen 325 MG TABLET 650 MG PO (09:26)
[2021-12-25] MEDS: Cholecalciferol (Vitamin D3) 25 MCG TABLET 125 MCG PO (09:27)
[2021-12-25] MEDS: Multivitamin TABLET 1 TAB PO (09:28)
[2021-12-25] MEDS: busPIRone HCl 5 MG TABLET 15 MG PO ×2 (09:29→20:01)
[2021-12-25] MEDS: Furosemide 20 MG TABLET PO (09:29)
[2021-12-25] MEDS: Pramipexole Di-HCL 0.125 MG TABLET PO ×2 (09:29→20:01)
[2021-12-25] MEDS: Thiamine HCL 100 MG TABLET PO (09:30)
[2021-12-25] MEDS: Gabapentin 400 MG CAPSULE 800 MG PO ×2 (09:30→20:01)
[2021-12-25] MEDS: DULoxetine HCl 60 MG CAPSULE.DR PO ×2 (09:30→20:01)
[2021-12-25] MEDS: Tobramycin Sulfate 0.3% Sol Op 5 ML BTL 1 DROP EYE-BOTH ×3 (09:33→20:11)
[2021-12-25] MEDS: Buprenorphine/Naloxone 2/0.5mg FILM 1 FILM SUBLINGUAL ×2 (09:33→20:02)
[2021-12-25] MEDS: Calcitonin,Salmon,Synth Nasal 3.7 ML BOTTLE 1 SPRAY NOSTRILALT (09:34)
--- NOTE | 2021-12-25 10:12 | P.PNNP_ITS ---
Subjective Subjective Date of Service: 12/25/21 Interval history: Events noted More awake Physical Exam Vital Signs: Vital Signs: Last Vital Signs Temp 98.2 F 12/25/21 07:45 Pulse 95 12/25/21 07:45 Resp 18 12/25/21 07:45 BP 125/66 12/25/21 07:45 Pulse Ox 95 12/25/21 07:45 O2 Del Method 12/25/21 07:45 O2 Flow Rate 2 12/25/21 07:45 BMI result Body Mass Index 31.9 Const: General: alert and awake Neck: Neck: Yes supple and Yes no JVD Resp: Auscultation: no rales and no rhonchi Cardio: Jugular venous distension: no JVD Rate: not tachycardic Heart sounds: no rubs Skin: Rashes: no rashes Neuro: Gait exam (Neuro): not ataxic Motor exam (neuro): No Asterixis during motor activity present Objective Data Labs CBC & Chem 7: 12/25/21 06:03 12/25/21 06:03 Labs: Laboratory Results - last 24 hr 12/23/21 12/24/21 12/25/21 07:31 06:55 06:03 WBC 6.1 RBC 3.10 L Hgb 9.5 L Hct 28.8 L MCV 92.9 MCH 30.6 MCHC 33.0 RDW 16.1 H Plt Count 145 L MPV 9.3 L Immature Gran % (Auto) 1.0 H Neut % (Auto) 76.3 H Lymph % (Auto) 14.5 L [place] % (Auto) 6.3 Eos % (Auto) 1.7 Baso % (Auto) 0.2 Lymph # (Auto) 0.9 L [place] # (Auto) 0.4 Eos # (Auto) 0.1 Baso # (Auto) 0.0 Abs Immat Gran (auto) 0.06 H Absolute Neuts (auto) 4.6 Absolute Nucleated RBC 0.000 Nucleated RBC % (auto) 0.0 Sodium Potassium Chloride Carbon Dioxide Anion Gap BUN Creatinine Estim Creat Clear Calc Estimated GFR Fasting Glucose Calcium Total Bilirubin AST ALT Alkaline Phosphatase Troponin I High Sens 24.2 H D Total Protein Albumin PTH Intact <6 L 12/25/21 06:03 WBC RBC Hgb Hct MCV MCH MCHC RDW Plt Count MPV Immature Gran % (Auto) Neut % (Auto) Lymph % (Auto) [place] % (Auto) Eos % (Auto) Baso % (Auto) Lymph # (Auto) [place] # (Auto) Eos # (Auto) Baso # (Auto) Abs Immat Gran (auto) Absolute Neuts (auto) Absolute Nucleated RBC Nucleated RBC % (auto) Sodium 137 Potassium 3.2 L Chloride 102 Carbon Dioxide 31 H Anion Gap 7 L BUN 24 H Creatinine 1.00 Estim Creat Clear Calc 50.7 Estimated GFR 54 Fasting Glucose 95 Calcium 11.0 H D Total Bilirubin 0.7 AST 17 ALT 13 Alkaline Phosphatase 66 Troponin I High Sens Total Protein 4.7 L Albumin 2.4 L PTH Intact Procedures Date of Service Date of Service: 12/25/21 Assessment & Plan Assessment and plan (1) Hypercalcemia: Status: Acute Plan Severe hypercalemia with suppressed PTH ANEMIA Renal function is stable; No protienuria Suggest Avoid calcium supplements Check PTH related peptide Await SPEP/UPEP Decrease IVF to 75 cc/hr IV Lasix to increase CA excretion Time Spent With Patient Time: Total time spent is greater than 50% in coordination of care (as documented) at patient's floor/unit and/or counseling patient: Progress Note: Quality Stroke Does the patient have a stroke diagnosis?: No
--- NOTE | 2021-12-25 10:17 | HO.PM.IMPN ---
Subjective Subjective Date of Service: 12/25/21 Interval History: cc: fall interval history: tired, 80lbs weight loss, loss of appetite Cardiovascular Cardiovascular: Reports no additional cardiovascular complaints Respiratory Respiratory: Reports no additional respiratory complaints Physical Exam Vital Signs: Vital Signs: Last Vital Signs Temp 98.2 F 12/25/21 07:45 Pulse 95 12/25/21 07:45 Resp 18 12/25/21 07:45 BP 125/66 12/25/21 07:45 Pulse Ox 95 12/25/21 07:45 O2 Del Method 12/25/21 07:45 O2 Flow Rate 2 12/25/21 07:45 BMI result Body Mass Index 31.9 General: lethargic O X 3, no acute distress Resp: CTA bilateral, no accessory muscles used CVS: S1,S2,RRR GI: soft, non tender, non distended Neuro: motor grossly intact, alert Psych: appropriate affect, appropriate insight Objective Data Active Medications Acetaminophen (Acetaminophen 325 Mg Tablet) 650 mg PO Q6H PRN PRN Reason: Pain, Mild (Pain Scale 1-3) Last Admin: 12/25/21 09:26 Dose: 650 mg Documented By: JEYSON Albuterol Sulfate (Albuterol Sulfate 90 Mcg 8 Gm Inhaler) 2 puff INHALE Q6H PRN PRN Reason: shortness of breath or wheezing Buprenorphine/Naloxone (Buprenorphine/Naloxone 2/0.5mg Film) 1 film SUBLINGUAL TID [facility] Last Admin: 12/25/21 09:33 Dose: 1 film Documented By: JEYSON Buspirone HCl (Buspirone Hcl 5 Mg Tablet) 15 mg PO BID [facility] Last Admin: 12/25/21 09:29 Dose: 15 mg Documented By: JEYSON Calcitonin [place] (Calcitonin,[place],Synth Nasal 3.7 Ml Bottle) 1 spray NOSTRILALT DAILY [facility] Last Admin: 12/25/21 09:34 Dose: 1 spray Documented By: JEYSON Duloxetine HCl (Duloxetine Hcl 60 Mg Capsule.Dr) 60 mg PO BID [facility] Last Admin: 12/25/21 09:30 Dose: 60 mg Documented By: JEYSON Enoxaparin Sodium (Enoxaparin Sodium 40 Mg/0.4 Ml Syringe) 40 mg SUBCUT Q24H [facility] Last Admin: 12/24/21 17:45 Dose: 40 mg Documented By: MIRIAM Furosemide (Furosemide 20 Mg Tablet) 20 mg PO DAILY [facility]; Protocol Last Admin: 12/25/21 09:29 Dose: 20 mg Documented By: JEYSON Furosemide (Furosemide 40 Mg/4 Ml Vial) 40 mg IVPUSH ONCE ONE; Protocol Stop: 12/25/21 10:16 Gabapentin (Gabapentin 400 Mg Capsule) 800 mg PO TID [facility] Last Admin: 12/25/21 09:30 Dose: 800 mg Documented By: JEYSON Sodium Chloride (Ns) 1,000 mls @ 150 mls/hr IVCONT .Q6H40M [facility] Last Admin: 12/25/21 05:11 Dose: 150 mls/hr Documented By: LUZ Multivitamins/Vitamin C (Multivitamin Tablet) 1 tab PO DAILY [facility] Last Admin: 12/25/21 09:28 Dose: 1 tab Documented By: JEYSON Omeprazole (Omeprazole 20 Mg Capsule.Dr) 20 mg PO DAILY@0630 [facility] Last Admin: 12/25/21 06:44 Dose: 20 mg Documented By: LUZ Ondansetron HCl (Ondansetron Hcl 4 Mg/2 Ml Vial) 4 mg IVPUSH Q6H PRN PRN Reason: Nausea and Vomiting Last Admin: 12/24/21 05:58 Dose: 4 mg Documented By: MARBELLA Pharmacy Consult (Consult Rx Perform Med Rec) 1 each MISCELLANE ONCE PRN PRN Reason: Consult order Potassium Chloride (Potassium Chloride Packet 20 Meq Packet) 40 meq PO ONCE ONE Stop: 12/25/21 10:15 Pramipexole Dihydrochloride (Pramipexole Di-Hcl 0.125 Mg Tablet) 0.125 mg PO BID [facility] Last Admin: 12/25/21 09:29 Dose: 0.125 mg Documented By: JEYSON Sodium Chloride (0.9 % Sodium Chloride Flush 3 Ml Syringe) 3 ml IVFLUSH QSHIFT [facility] Last Admin: 12/25/21 09:34 Dose: Not Given Documented By: JEYSON Non-Admin Reason: IV Running Sodium Chloride (Sodium Chloride 0.65 % Nasal 44 Ml Sprbtl) 2 spray NOSTRIL-B QID PRN PRN Reason: Nasal Congestion Last Admin: 12/24/21 09:25 Dose: 2 spray Documented By: DUANE Thiamine HCl (Thiamine Hcl 100 Mg Tablet) 100 mg PO DAILY [facility] Last Admin: 12/25/21 09:30 Dose: 100 mg Documented By: JEYSON Tobramycin Sulfate (Tobramycin Sulfate 0.3% Pati Op 5 Ml Btl) 1 drop EYE-BOTH QID [facility] Last Admin: 12/25/21 09:33 Dose: 1 drop Documented By: JEYSON Vitamin D (Cholecalciferol (Vitamin D3) 25 Mcg Tablet) 125 mcg PO DAILY [facility] Last Admin: 12/25/21 09:27 Dose: 125 mcg Documented By: JEYSON Labs CBC & Chem 7: 12/25/21 06:03 12/25/21 06:03 Labs: Laboratory Results - last 24 hr 12/23/21 12/24/21 12/25/21 07:31 06:55 06:03 MCV 92.9 MCH 30.6 MCHC 33.0 RDW 16.1 H Plt Count 145 L MPV 9.3 L Immature Gran % (Auto) 1.0 H Neut % (Auto) 76.3 H Lymph % (Auto) 14.5 L [place] % (Auto) 6.3 Eos % (Auto) 1.7 Baso % (Auto) 0.2 Lymph # (Auto) 0.9 L [place] # (Auto) 0.4 Eos # (Auto) 0.1 Baso # (Auto) 0.0 Abs Immat Gran (auto) 0.06 H Absolute Neuts (auto) 4.6 Absolute Nucleated RBC 0.000 Nucleated RBC % (auto) 0.0 Anion Gap Estim Creat Clear Calc Estimated GFR Fasting Glucose Calcium Total Bilirubin AST ALT Alkaline Phosphatase Troponin I High Sens 24.2 H D Total Protein Albumin PTH Intact <6 L 12/25/21 06:03 MCV MCH MCHC RDW Plt Count MPV Immature Gran % (Auto) Neut % (Auto) Lymph % (Auto) [place] % (Auto) Eos % (Auto) Baso % (Auto) Lymph # (Auto) [place] # (Auto) Eos # (Auto) Baso # (Auto) Abs Immat Gran (auto) Absolute Neuts (auto) Absolute Nucleated RBC Nucleated RBC % (auto) Anion Gap 7 L Estim Creat Clear Calc 50.7 Estimated GFR 54 Fasting Glucose 95 Calcium 11.0 H D Total Bilirubin 0.7 AST 17 ALT 13 Alkaline Phosphatase 66 Troponin I High Sens Total Protein 4.7 L Albumin 2.4 L PTH Intact Assessment and Plan (1) New onset atrial fibrillation: Status: Acute Plan 71F presented with falls, found to have severe hypercalcemia, brief episode of afib with rvr in ED. falls due to metabolic encephalopathy due to hypercalcemia reduced PTH and weight loss concerning for malignancy questionable lesion on left breast on CTA chest, will check mammogram caclium improved from corrected of 14.7 on 12/23/21 to 12.3 today 12/25/21 on normal saline with lasix monitor calcium, follow up spep/upep nephro following epsiode of afib was brief, now in NSR check echo monitor for now moderate persistent asthma/copd albuterol as needed DM sugars normal, has lost weight, not on meds, will check a1c, possibly resolved hypokalemia replace, monitor opiate dependence suboxone mood disorder cymbalta buspar htn hold hctz, monitor, bp controlled dvt prophylaxis - lovenox DNR/DNI reason for continued hospitalization:ongoing treatment with iv meds for hypercalcemia, close monitoring Quality Stroke Does the patient have a stroke diagnosis?: No VTE Prior VTE?: No VTE Risk Level:: Medical - moderate - high VTE Device Contraindication: Treatment Not Indicated VTE Drug Contraindication: N/A - Med Ordered
[2021-12-25 10:58] LABS: Estimated Average Glucose 120 mg/dL; Hemoglobin A1c % 5.8 %
[2021-12-25] MEDS: Furosemide 40 MG/4 ML VIAL IVPUSH (11:23)
[2021-12-25] MEDS: Potassium Chloride Packet 20 MEQ PACKET 40 MEQ PO (11:24)
--- NOTE | 2021-12-25 11:26 | CONS_ITS ---
DATE OF SERVICE: 12/24/2021 REASON FOR CONSULTATION: I was called to see this patient to assist in management of severe hypercalcemia. HISTORY OF PRESENT ILLNESS: To summarize, Aracelis is a 71-year-old woman who comes in because of abdominal pain. At the time of admission, she was found to have serum calcium more than 14. She was given IV normal saline and serum calcium guided did decrease. In the meantime, she did develop atrial fibrillation and subsequently had bradycardia and this has slowly resolved. Ongoing medical problems include asthma, anxiety, COPD, depression, GERD, pneumonitis. FAMILY HISTORY: Not significant for this admission. PAST SURGICAL HISTORY: Includes and shoulder surgery. SOCIAL HISTORY: History of smoking in the past. Does not smoke at present. No history of alcohol abuse. ALLERGIES: NO KNOWN DRUG ALLERGIES. MEDICATION: At time of admission included bupropion, naloxone, calcitonin was given in the ED, Neurontin, hydrochlorothiazide along with Maxzide, pramipexole, prednisone, vitamin D daily. REVIEW OF SYSTEM: Was not obtained from the patient. She was not verbalizing, although she was awake. All the information obtained from the chart. PHYSICAL EXAMINATION: GENERAL: On examination, Aracelis is an elderly woman. She is awake, comfortable, not in distress. NECK: Supple. HEENT: Pupils reacting to light. LUNGS: Air entry equal. No rales. HEART: S1, S2 heard. No gallop. ABDOMEN: Soft, nontender. EXTREMITIES: No edema. No cyanosis. No clubbing. VITAL SIGNS: Blood pressure was 160/80, pulse rate 87. LABORATORY DATA: Hemoglobin 10.2, platelets 172. Serum electrolytes normal. BUN 20, creatinine 1.02, calcium 11.9 this morning. PTH is pending. Urine showed a specific gravity 1.010, no protein, no blood. SPEP is pending. IMPRESSION: A 71-year-old woman with severe hypercalcemia. Different diagnosis would include primary hyperthyroidism versus other causes including malignancy related hypercalcemia or excessive vitamin D intake. The use of hydrochlorothiazide could also lead to hypercalcemia by decreasing urinary calcium excretion. RECOMMENDATION: My recommendation is to hold hydrochlorothiazide and Maxzide. Hold vitamin D supplementation. Agree with IV hydration with normal saline. Agree with IV Lasix to increase calcium excretion. She has received calcitonin and serum calcium is decreasing. Check PTH. Based on this, further therapy can be administered. We will follow her along with the team. Omar Serna MD BPA/MODL / [id number]
[2021-12-25 15:17] LABS: IgA 173 mg/dL (70-320); IgG 1282 mg/dL (600-1540); IgM 198 mg/dL (50-300)
[2021-12-25] MEDS: Enoxaparin Sodium 40 MG/0.4 ML SYRINGE SUBCUT (17:00)
[2021-12-25] MEDS: 0.9 % Sodium Chloride 1,000 ML 75 ML IVCONT (17:20)
[2021-12-25] MEDS: Furosemide 20 MG/2 ML VIAL IVPUSH (17:23)
[2021-12-26] VITALS (7 sets, daily range): BP systolic 87–143; BP diastolic 48–77; PULSE 78–98; RESP 13–20; TEMP 36.6–38.8; O2SAT 92–96
[2021-12-26] MEDS: 0.9 % Sodium Chloride 1,000 ML 75 ML IVCONT ×2 (02:01→15:18)
[2021-12-26] MEDS: Omeprazole 20 MG CAPSULE.DR PO (05:48)
[2021-12-26 06:16] LABS: MANUAL DIFF FLAG NO
[2021-12-26 06:47] LABS: Basophils Percent Auto 0.2 % (0-2); Eosinophils Absolute Auto 0.2 X10*3/uL (0.0-0.4); Hematocrit 26.4 % (37.0-47.0); Hemoglobin 8.9 g/dl (12.0-16.0); Imm Gran Abs Auto 0.06 X10*3/uL (0.00-0.03); Imm Gran Pct Auto 1.3 % (0.0-0.4); Lymphocytes Absolute Auto 0.7 X10*3/uL (1.2-4.9); Lymphocytes Percent Auto 15.1 % (20-40); Mean Corpuscular HGB Conc 33.7 g/dl (31.0-35.0); Mean Corpuscular Hemoglobin 31.1 pg (27.0-33.0); Mean Corpuscular Volume 92.3 fL (80.0-98.0); Mean Platelet Volume 9.8 fL (9.4-12.3); Monocytes Absolute Auto 0.3 X10*3/uL (0.1-1.2); Monocytes Percent Auto 5.4 % (2-11); Neutrophils Absolute Auto 3.5 x10*3/uL (2.0-8.3); Platelet Count 125 X10*3/uL (160-400); Red Blood Count 2.86 X10*6/uL (4.20-5.50); Red Cell Distribution Width 15.6 % (11.0-16.0); White Blood Count 4.8 X10*3/uL (4.8-10.8)
[2021-12-26 06:56] LABS: Alanine Aminotransferase 14 U/L (0-31); Albumin Level 2.5 g/dL (3.5-5.0); Alkaline Phosphatase 67 U/L (39-117); Anion Gap 9 (12-20); Aspartate Amino Transferase 19 U/L (5-31); Bilirubin Direct 0.3 mg/dL (0.0-0.5); Bilirubin Total 0.6 mg/dL (0.0-1.0); Blood Urea Nitrogen 22 mg/dL (9-16); Carbon Dioxide 29 mmol/L (22-29); Chloride 102 mmol/L (96-108); Creatinine Clr Calc Pharmacy 50.7; Estimated Glomerular Filt Rate 54; Glucose Fasting 93 mg/dL (60-99); Potassium 3.1 mmol/L (3.3-5.1); Sodium 137 mmol/L (135-145); Total Protein 4.8 g/dL (6.5-8.0)
[2021-12-26] MEDS: Fluticasone Propionate 100 MCG BLST.W.DEV 2 PUFF INHALE (07:43)
[2021-12-26] MEDS: DULoxetine HCl 60 MG CAPSULE.DR PO (09:44)
[2021-12-26] MEDS: Gabapentin 400 MG CAPSULE 800 MG PO (09:44)
[2021-12-26] MEDS: Acetaminophen 325 MG TABLET 650 MG PO (09:45)
[2021-12-26] MEDS: Thiamine HCL 100 MG TABLET PO (09:45)
[2021-12-26] MEDS: busPIRone HCl 5 MG TABLET 15 MG PO (09:45)
[2021-12-26] MEDS: Pramipexole Di-HCL 0.125 MG TABLET PO (09:46)
[2021-12-26] MEDS: Potassium Chloride Packet 20 MEQ PACKET 40 MEQ PO ×2 (09:48→14:18)
[2021-12-26] MEDS: Furosemide 20 MG/2 ML VIAL IVPUSH ×2 (09:50→18:41)
[2021-12-26] MEDS: Buprenorphine/Naloxone 2/0.5mg FILM 1 FILM SUBLINGUAL ×2 (09:51→15:16)
[2021-12-26] MEDS: 0.9 % Sodium Chloride Flush 3 ML SYRINGE IVFLUSH ×2 (09:59→20:08)
--- NOTE | 2021-12-26 10:38 | P.PNNP_ITS ---
Subjective Subjective Date of Service: 12/26/21 Interval history: cc: fall interval history: tired, 80lbs weight loss, loss of appetite Physical Exam Vital Signs: Vital Signs: Last Vital Signs Temp 98.3 F 12/26/21 08:00 Pulse 89 12/26/21 08:00 Resp 20 12/26/21 08:00 BP 87/52 L 12/26/21 08:00 Pulse Ox 93 12/26/21 08:00 O2 Del Method 12/26/21 08:00 O2 Flow Rate 2 12/26/21 08:00 BMI result Body Mass Index 31.9 Const: General: alert and awake Neck: Neck: Yes supple and Yes no JVD Resp: Auscultation: no rales and no rhonchi Cardio: Jugular venous distension: no JVD Rate: not tachycardic Heart sounds: no rubs Skin: Rashes: no rashes Neuro: Gait exam (Neuro): not ataxic Motor exam (neuro): No Asterixis during motor activity present Objective Data Labs CBC & Chem 7: 12/26/21 06:00 12/26/21 06:00 Labs: Laboratory Results - last 24 hr 12/23/21 12/25/21 12/26/21 16:24 06:03 06:00 WBC RBC Hgb Hct MCV MCH MCHC RDW Plt Count MPV Immature Gran % (Auto) Neut % (Auto) Lymph % (Auto) [place] % (Auto) Eos % (Auto) Baso % (Auto) Lymph # (Auto) [place] # (Auto) Eos # (Auto) Baso # (Auto) Abs Immat Gran (auto) Absolute Neuts (auto) Absolute Nucleated RBC Nucleated RBC % (auto) Sodium 137 Potassium 3.1 L Chloride 102 Carbon Dioxide 29 Anion Gap 9 L BUN 22 H Creatinine 1.00 Estim Creat Clear Calc 50.7 Estimated GFR 54 Fasting Glucose 93 Estimat Average Glucose 120 Hemoglobin A1c % 5.8 Calcium 11.0 H Total Bilirubin 0.6 Direct Bilirubin 0.3 AST 19 ALT 14 Alkaline Phosphatase 67 Total Protein 4.8 L Albumin 2.5 L IgG Total 1282 IgA Total 173 IgM 198 MADDIE Interpretation SEE NOTE 12/26/21 06:00 WBC 4.8 RBC 2.86 L Hgb 8.9 L Hct 26.4 L MCV 92.3 MCH 31.1 MCHC 33.7 RDW 15.6 Plt Count 125 L MPV 9.8 Immature Gran % (Auto) 1.3 H Neut % (Auto) 74.0 H Lymph % (Auto) 15.1 L [place] % (Auto) 5.4 Eos % (Auto) 4.0 Baso % (Auto) 0.2 Lymph # (Auto) 0.7 L [place] # (Auto) 0.3 Eos # (Auto) 0.2 Baso # (Auto) 0.0 Abs Immat Gran (auto) 0.06 H Absolute Neuts (auto) 3.5 Absolute Nucleated RBC 0.000 Nucleated RBC % (auto) 0.0 Sodium Potassium Chloride Carbon Dioxide Anion Gap BUN Creatinine Estim Creat Clear Calc Estimated GFR Fasting Glucose Estimat Average Glucose Hemoglobin A1c % Calcium Total Bilirubin Direct Bilirubin AST ALT Alkaline Phosphatase Total Protein Albumin IgG Total IgA Total IgM MADDIE Interpretation Procedures Date of Service Date of Service: 12/26/21 Assessment & Plan Assessment and plan (1) Hypercalcemia: Status: Acute Plan Severe hypercalemia with suppressed PTH ANEMIA Renal function is stable; No proteinuria Hypokalemia Suggest Avoid calcium supplements Check PTH related peptide and 1,25 OH Vit D No monoclonal protein is urine IVF 75 cc/hr IV Lasix to increase CA excretion Replace K orally Time Spent With Patient Time: Total time spent is greater than 50% in coordination of care (as documented) at patient's floor/unit and/or counseling patient: Progress Note: Quality Stroke Does the patient have a stroke diagnosis?: No
--- NOTE | 2021-12-26 13:31 | MHC.CM.PN ---
per jenni herrmann pt to be dd in 1 to 2 days plan is resume servceis thru [facility] unless pt eval says differntly
--- NOTE | 2021-12-26 13:35 | P.PNIM_ITS ---
Subjective Subjective Date of Service: 12/26/21 Interval History: the patient was seen and evaluated this morning Laying in bed, feels mild improvement since yesterday Denies any fever, chills or chest pain No reported other overnight events. Systemic review: No fever, chills but reports generalized weakness No chest pain, palpitation No shortness of breath or coughing No abdominal pain, nausea or vomiting No urinary symptoms No any rash or wounds Physical Exam Vital Signs: Vital Signs: Last Vital Signs Temp 97.9 F 12/26/21 12:00 Pulse 92 12/26/21 12:00 Resp 19 12/26/21 12:00 BP 105/58 L 12/26/21 12:00 Pulse Ox 93 12/26/21 12:00 O2 Del Method 12/26/21 12:00 O2 Flow Rate 2 12/26/21 12:00 BMI result Body Mass Index 31.9 Const: Other: Constitutional : Alert, oriented, not in distress Neck : Normal inspection, Supple Cardiovascular : RRR, no JVP, no lower extremity edema Respiratory : fair bilateral air entry, no crackles, wheezes or rhonchi Gastrointestinal: soft, lax, Normal bowel sounds, Non tender Skin : Warm, Dry Neurological : Alert & oriented x3, No focal deficit , CN 2-12 within normal Objective Data Active Medications Acetaminophen (Acetaminophen 325 Mg Tablet) 650 mg PO Q6H PRN PRN Reason: Pain, Mild (Pain Scale 1-3) Last Admin: 12/26/21 09:45 Dose: 650 mg Documented By: JEYSON Albuterol Sulfate (Albuterol Sulfate 90 Mcg 8 Gm Inhaler) 2 puff INHALE Q6H PRN PRN Reason: shortness of breath or wheezing Buprenorphine/Naloxone (Buprenorphine/Naloxone 2/0.5mg Film) 1 film SUBLINGUAL TID [facility] Last Admin: 12/26/21 09:51 Dose: 1 film Documented By: JEYSON Buspirone HCl (Buspirone Hcl 5 Mg Tablet) 15 mg PO BID [facility] Last Admin: 12/26/21 09:45 Dose: 15 mg Documented By: JEYSON Duloxetine HCl (Duloxetine Hcl 60 Mg Capsule.Dr) 60 mg PO BID [facility] Last Admin: 12/26/21 09:44 Dose: 60 mg Documented By: JEYSON Enoxaparin Sodium (Enoxaparin Sodium 40 Mg/0.4 Ml Syringe) 40 mg SUBCUT Q24H [facility] Last Admin: 12/25/21 17:00 Dose: 40 mg Documented By: JEYSON Fluticasone Propionate (Fluticasone Propionate 100 Mcg Blst.W.Dev) 2 puff INHALE RBID [facility] Last Admin: 12/26/21 07:43 Dose: 2 puff Documented By: AMY Furosemide (Furosemide 20 Mg/2 Ml Vial) 20 mg IVPUSH BID@0900,1800 [facility]; Protocol Last Admin: 12/26/21 09:50 Dose: 20 mg Documented By: JEYSON Gabapentin (Gabapentin 100 Mg Capsule) 200 mg PO TID [facility] Sodium Chloride (Ns) 1,000 mls @ 75 mls/hr IVCONT .[id number] [facility] Last Admin: 12/26/21 02:01 Dose: 75 mls/hr Documented By: DAYANNA Omeprazole (Omeprazole 20 Mg Capsule.) 20 mg PO DAILY@0630 [facility] Last Admin: 12/26/21 05:48 Dose: 20 mg Documented By: DAYANNA Ondansetron HCl (Ondansetron Hcl 4 Mg/2 Ml Vial) 4 mg IVPUSH Q6H PRN PRN Reason: Nausea and Vomiting Last Admin: 12/24/21 05:58 Dose: 4 mg Documented By: MARBELLA Pharmacy Consult (Consult Rx Perform Med Rec) 1 each MISCELLANE ONCE PRN PRN Reason: Consult order Pramipexole Dihydrochloride (Pramipexole Di-Hcl 0.125 Mg Tablet) 0.125 mg PO BID [facility] Last Admin: 12/26/21 09:46 Dose: 0.125 mg Documented By: JEYSON Sodium Chloride (0.9 % Sodium Chloride Flush 3 Ml Syringe) 3 ml IVFLUSH QSHIFT [facility] Last Admin: 12/26/21 09:59 Dose: 3 ml Documented By: JEYSON Sodium Chloride (Sodium Chloride 0.65 % Nasal 44 Ml Sprbtl) 2 spray NOSTRIL-B QID PRN PRN Reason: Nasal Congestion Last Admin: 12/24/21 09:25 Dose: 2 spray Documented By: DUANE Thiamine HCl (Thiamine Hcl 100 Mg Tablet) 100 mg PO DAILY [facility] Last Admin: 12/26/21 09:45 Dose: 100 mg Documented By: JEYSON Tobramycin Sulfate (Tobramycin Sulfate 0.3% Pati Op 5 Ml Btl) 1 drop EYE-BOTH QID [facility] Last Admin: 12/26/21 09:53 Dose: Not Given Documented By: JEYSON Non-Admin Reason: Patient Refused Labs CBC & Chem 7: 12/26/21 06:00 12/26/21 06:00 Labs: Laboratory Results - last 24 hr 12/23/21 12/26/21 12/26/21 16:24 06:00 06:00 MCV 92.3 MCH 31.1 MCHC 33.7 RDW 15.6 Plt Count 125 L MPV 9.8 Immature Gran % (Auto) 1.3 H Neut % (Auto) 74.0 H Lymph % (Auto) 15.1 L [place] % (Auto) 5.4 Eos % (Auto) 4.0 Baso % (Auto) 0.2 Lymph # (Auto) 0.7 L [place] # (Auto) 0.3 Eos # (Auto) 0.2 Baso # (Auto) 0.0 Abs Immat Gran (auto) 0.06 H Absolute Neuts (auto) 3.5 Absolute Nucleated RBC 0.000 Nucleated RBC % (auto) 0.0 Anion Gap 9 L Estim Creat Clear Calc 50.7 Estimated GFR 54 Fasting Glucose 93 Calcium 11.0 H Total Bilirubin 0.6 Direct Bilirubin 0.3 AST 19 ALT 14 Alkaline Phosphatase 67 Total Protein 4.8 L Albumin 2.5 L IgG Total 1282 IgA Total 173 IgM 198 MADDIE Interpretation SEE NOTE Assessment and Plan (1) New onset atrial fibrillation: Status: Acute (2) Hypercalcemia: Status: Acute Plan 71F presented with falls, found to have severe hypercalcemia, brief episode of afib with rvr in ED. falls due to metabolic encephalopathy due to hypercalcemia low PTH, normal vitamin-D questionable lesion on left breast on CTA chest, pending mammogram corrected calcium level improving slowly, 12.2 today continue normal saline with lasix follow BMP pending spep/upep check PTHRh, 1, 25 dihydroxy vit D ( might take days before the results) nephro following hypokalemia Potassium of 3.1 Give replacement and follow BMP epsiode of afib was brief, related to electrolyte imbalance, now in NSR Echo showed normal EF of 60 65% monitor for now moderate persistent asthma/copd albuterol as needed DM sugars normal, has lost weight, not on meds, will check a1c, possibly resolved hypokalemia replace, monitor opiate dependence suboxone mood disorder cymbalta buspar htn hold hctz, monitor, bp controlled dvt prophylaxis - lovenox DNR/DNI reason for continued hospitalization:ongoing treatment with iv meds for hypercalcemia, close monitoring Quality Stroke Does the patient have a stroke diagnosis?: No VTE Prior VTE?: No VTE Risk Level:: Medical - moderate - high VTE Device Contraindication: Treatment Not Indicated VTE Drug Contraindication: N/A - Med Ordered
[2021-12-26] MEDS: Gabapentin 100 MG CAPSULE 200 MG PO (14:19)
[2021-12-26] MEDS: Tobramycin Sulfate 0.3% Sol Op 5 ML BTL 1 DROP EYE-BOTH ×3 (14:21→22:22)
[2021-12-26] MEDS: Enoxaparin Sodium 40 MG/0.4 ML SYRINGE SUBCUT (18:42)
[2021-12-26 22:55] LABS: MANUAL DIFF FLAG NO
[2021-12-26 22:56] LABS: Basophils Percent Auto 0.2 % (0-2); PLT CLUMP 1; SCAN SMEAR FLAG 1
[2021-12-26 22:58] LABS: Eosinophils Absolute Auto 0.3 X10*3/uL (0.0-0.4); Eosinophils Percent Auto 5.6 % (0-4); Hematocrit 27.1 % (37.0-47.0); Imm Gran Abs Auto 0.06 X10*3/uL (0.00-0.03); Imm Gran Pct Auto 1.2 % (0.0-0.4); Lymphocytes Absolute Auto 0.5 X10*3/uL (1.2-4.9); Lymphocytes Percent Auto 10.2 % (20-40); Mean Corpuscular HGB Conc 33.2 g/dl (31.0-35.0); Mean Corpuscular Hemoglobin 30.8 pg (27.0-33.0); Mean Corpuscular Volume 92.8 fL (80.0-98.0); Mean Platelet Volume 9.6 fL (9.4-12.3); Monocytes Absolute Auto 0.3 X10*3/uL (0.1-1.2); Neutrophils Absolute Auto 3.9 x10*3/uL (2.0-8.3); Neutrophils Percent Auto 77.8 % (45-73); Red Blood Count 2.92 X10*6/uL (4.20-5.50); Red Cell Distribution Width 15.6 % (11.0-16.0)
[2021-12-26] MEDS: Acetaminophen Supp 650 MG SUPP.RECT PR (23:00)
[2021-12-26 23:05] LABS: Platelet Count 133 X10*3/uL (160-400)
[2021-12-26 23:11] LABS: Lactic Acid 0.9 mmol/L (0.5-2.0)
[2021-12-26 23:15] LABS: Appearance Urine HAZY; Color Urine STRAW; Glucose Urine UA NEG (NEG); Leukocyte Esterase Urine NEG (NEG); Nitrite Urine NEG (NEG); Urine Blood NEG (NEG); Urine Ketones NEG (NEG); Urine Protein NEG (NEG-TRACE)
[2021-12-27] VITALS (10 sets, daily range): BP systolic 107–127; BP diastolic 48–62; PULSE 77–93; RESP 14–20; TEMP 36.3–37.6; O2SAT 89–97
--- NOTE | 2021-12-27 00:24 | PM.EVENT ---
Event Note Date of Service: 12/27/21 Event Note: pt noted to be febrile obtained blood cultures, UA -ve, Lactic acid normal, CXR negative likely post surgical fever will monitor off antibiotics
[2021-12-27] MEDS: Omeprazole 20 MG CAPSULE.DR PO (06:01)
[2021-12-27] MEDS: 0.9 % Sodium Chloride 1,000 ML 75 ML IVCONT (06:01)
[2021-12-27 06:27] LABS: Hematocrit 24.5 % (37.0-47.0); Hemoglobin 8.1 g/dl (12.0-16.0); Mean Corpuscular HGB Conc 33.1 g/dl (31.0-35.0); Mean Corpuscular Hemoglobin 30.7 pg (27.0-33.0); Mean Corpuscular Volume 92.8 fL (80.0-98.0); Mean Platelet Volume 9.6 fL (9.4-12.3); Platelet Count 113 X10*3/uL (160-400); Red Blood Count 2.64 X10*6/uL (4.20-5.50); Red Cell Distribution Width 15.5 % (11.0-16.0); White Blood Count 3.6 X10*3/uL (4.8-10.8)
[2021-12-27 06:51] LABS: Anion Gap 10 (12-20); Blood Urea Nitrogen 20 mg/dL (9-16); Carbon Dioxide 29 mmol/L (22-29); Chloride 100 mmol/L (96-108); Creatinine Clr Calc Pharmacy 55.1; Estimated Glomerular Filt Rate 60; Glucose Random 88 mg/dL (60-115); Potassium 3.3 mmol/L (3.3-5.1); Sodium 136 mmol/L (135-145)
[2021-12-27 06:55] LABS: Alanine Aminotransferase 16 U/L (0-31); Albumin Level 2.4 g/dL (3.5-5.0); Alkaline Phosphatase 66 U/L (39-117); Aspartate Amino Transferase 21 U/L (5-31); Bilirubin Direct 0.3 mg/dL (0.0-0.5); Bilirubin Total 0.5 mg/dL (0.0-1.0); Total Protein 4.7 g/dL (6.5-8.0)
[2021-12-27] MEDS: Fluticasone Propionate 100 MCG BLST.W.DEV 2 PUFF INHALE ×2 (07:39→19:52)
[2021-12-27] MEDS: Buprenorphine/Naloxone 2/0.5mg FILM 1 FILM SUBLINGUAL ×3 (09:49→20:15)
[2021-12-27] MEDS: Pramipexole Di-HCL 0.125 MG TABLET PO ×2 (09:49→20:14)
[2021-12-27] MEDS: busPIRone HCl 5 MG TABLET 15 MG PO ×2 (09:51→20:14)
[2021-12-27] MEDS: DULoxetine HCl 60 MG CAPSULE.DR PO ×2 (09:51→20:14)
[2021-12-27] MEDS: Gabapentin 100 MG CAPSULE 200 MG PO ×3 (09:51→20:14)
[2021-12-27] MEDS: Thiamine HCL 100 MG TABLET PO (09:52)
[2021-12-27] MEDS: Furosemide 20 MG/2 ML VIAL IVPUSH ×2 (09:53→18:24)
[2021-12-27] MEDS: Tobramycin Sulfate 0.3% Sol Op 5 ML BTL 1 DROP EYE-BOTH ×4 (09:53→20:23)
[2021-12-27] MEDS: Acetaminophen 325 MG TABLET 650 MG PO (09:55)
--- NOTE | 2021-12-27 10:59 | PM.PNNEP ---
Subjective Subjective Date of Service: 12/28/21 Interval history: Events noted Persistent hypercalcemia Physical Exam Vital Signs: Vital Signs: Last Vital Signs Temp 97.3 F 12/27/21 07:18 Pulse 77 12/27/21 07:43 Resp 18 12/27/21 07:43 BP 117/59 L 12/27/21 07:18 Pulse Ox 97 12/27/21 07:18 O2 Del Method 12/27/21 07:18 O2 Flow Rate 2 12/27/21 07:18 BMI result Body Mass Index 31.9 Const: General: alert and awake Neck: Neck: Yes supple and Yes no JVD Resp: Auscultation: no rales and no rhonchi Cardio: Jugular venous distension: no JVD Rate: not tachycardic Heart sounds: no rubs Skin: Rashes: no rashes Neuro: Gait exam (Neuro): not ataxic Motor exam (neuro): No Asterixis during motor activity present Objective Data Labs CBC & Chem 7: 12/28/21 10:28 12/28/21 10:28 Labs: Laboratory Results - last 24 hr 12/26/21 12/26/21 12/26/21 22:49 22:49 22:56 WBC 5.0 RBC 2.92 L Hgb 9.0 L Hct 27.1 L MCV 92.8 MCH 30.8 MCHC 33.2 RDW 15.6 Plt Count 133 L MPV 9.6 Immature Gran % (Auto) 1.2 H Neut % (Auto) 77.8 H Lymph % (Auto) 10.2 L [place] % (Auto) 5.0 Eos % (Auto) 5.6 H Baso % (Auto) 0.2 Lymph # (Auto) 0.5 L [place] # (Auto) 0.3 Eos # (Auto) 0.3 Baso # (Auto) 0.0 Abs Immat Gran (auto) 0.06 H Absolute Neuts (auto) 3.9 Absolute Nucleated RBC 0.000 Nucleated RBC % (auto) 0.0 Sodium Potassium Chloride Carbon Dioxide Anion Gap BUN Creatinine Estim Creat Clear Calc Estimated GFR Random Glucose Lactic Acid 0.9 Calcium Total Bilirubin Direct Bilirubin AST ALT Alkaline Phosphatase Total Protein Albumin 25-OH Vitamin D Total 25-Hydroxy Vitamin D2 25-Hydroxy Vitamin D3 Urine Color STRAW Urine Appearance HAZY Urine pH 6.0 Ur Specific [place] 1.010 Urine Protein NEG Urine Glucose (UA) NEG Urine Ketones NEG Urine Blood NEG Urine Nitrite NEG Ur Leukocyte Esterase NEG 12/26/21 12/27/21 12/27/21 Unknown 06:08 06:08 WBC 3.6 L RBC 2.64 L Hgb 8.1 L Hct 24.5 L MCV 92.8 MCH 30.7 MCHC 33.1 RDW 15.5 Plt Count 113 L MPV 9.6 Immature Gran % (Auto) Neut % (Auto) Lymph % (Auto) [place] % (Auto) Eos % (Auto) Baso % (Auto) Lymph # (Auto) [place] # (Auto) Eos # (Auto) Baso # (Auto) Abs Immat Gran (auto) Absolute Neuts (auto) Absolute Nucleated RBC 0.000 Nucleated RBC % (auto) 0.0 Sodium 136 Potassium 3.3 Chloride 100 Carbon Dioxide 29 Anion Gap 10 L BUN 20 H Creatinine 0.92 Estim Creat Clear Calc 55.1 Estimated GFR 60 Random Glucose 88 Lactic Acid Calcium 11.0 H Total Bilirubin Direct Bilirubin AST ALT Alkaline Phosphatase Total Protein Albumin 25-OH Vitamin D Total Cancelled 25-Hydroxy Vitamin D2 Cancelled 25-Hydroxy Vitamin D3 Cancelled Urine Color Urine Appearance Urine pH Ur Specific [place] Urine Protein Urine Glucose (UA) Urine Ketones Urine Blood Urine Nitrite Ur Leukocyte Esterase 12/27/21 06:08 WBC RBC Hgb Hct MCV MCH MCHC RDW Plt Count MPV Immature Gran % (Auto) Neut % (Auto) Lymph % (Auto) [place] % (Auto) Eos % (Auto) Baso % (Auto) Lymph # (Auto) [place] # (Auto) Eos # (Auto) Baso # (Auto) Abs Immat Gran (auto) Absolute Neuts (auto) Absolute Nucleated RBC Nucleated RBC % (auto) Sodium Potassium Chloride Carbon Dioxide Anion Gap BUN Creatinine Estim Creat Clear Calc Estimated GFR Random Glucose Lactic Acid Calcium Total Bilirubin 0.5 Direct Bilirubin 0.3 AST 21 ALT 16 Alkaline Phosphatase 66 Total Protein 4.7 L Albumin 2.4 L 25-OH Vitamin D Total 25-Hydroxy Vitamin D2 25-Hydroxy Vitamin D3 Urine Color Urine Appearance Urine pH Ur Specific [place] Urine Protein Urine Glucose (UA) Urine Ketones Urine Blood Urine Nitrite Ur Leukocyte Esterase Procedures Date of Service Date of Service: 12/28/21 Assessment & Plan Assessment and plan (1) Hypercalcemia: Status: Acute Plan Severe hypercalemia with suppressed PTH ANEMIA Renal function is stable; No proteinuria Hypokalemia Suggest Avoid calcium supplements Check PTH related peptide and 1,25 [place] Vit D No monoclonal protein is urine IVF 75 cc/hr IV Lasix to increase CA excretion Will add Zometa Oncology evaluation Replace K orally Time Spent With Patient Time: Total time spent is greater than 50% in coordination of care (as documented) at patient's floor/unit and/or counseling patient: Progress Note: Quality Stroke Does the patient have a stroke diagnosis?: No
--- NOTE | 2021-12-27 11:50 | P.PNIM_ITS ---
Subjective Subjective Date of Service: 12/27/21 Interval History: the patient was seen and evaluated this morning Laying in bed, reports improvement since yesterday Looking to start moving today No reported other overnight events. Systemic review: No fever, chills but reports generalized weakness No chest pain, palpitation No shortness of breath or coughing No abdominal pain, nausea or vomiting No urinary symptoms No any rash or wounds Physical Exam Vital Signs: Vital Signs: Last Vital Signs Temp 98.1 F 12/27/21 11:26 Pulse 79 12/27/21 11:26 Resp 20 12/27/21 11:26 BP 116/56 L 12/27/21 11:26 Pulse Ox 96 12/27/21 11:26 O2 Del Method 12/27/21 11:26 O2 Flow Rate 2 12/27/21 11:26 BMI result Body Mass Index 31.9 Const: Other: Constitutional : Alert, interactive, not in distress Neck : Normal inspection, Supple Cardiovascular : RRR, no JVP, no lower extremity edema Respiratory : fair bilateral air entry, no crackles, wheezes or rhonchi Gastrointestinal: soft, lax, Normal bowel sounds, Non tender Skin : Warm, Dry Neurological : Alert & oriented x3, No focal deficit , CN 2-12 within normal Objective Data Active Medications Acetaminophen (Acetaminophen 325 Mg Tablet) 650 mg PO Q6H PRN PRN Reason: Pain, Mild (Pain Scale 1-3) Last Admin: 12/27/21 09:55 Dose: 650 mg Documented By: ROYAL Acetaminophen (Acetaminophen Supp 650 Mg Supp.Rect) 650 mg RI Q6H PRN PRN Reason: fever Last Admin: 12/26/21 23:00 Dose: 650 mg Documented By: MELINDA Albuterol Sulfate (Albuterol Sulfate 90 Mcg 8 Gm Inhaler) 2 puff INHALE Q6H PRN PRN Reason: shortness of breath or wheezing Buprenorphine/Naloxone (Buprenorphine/Naloxone 2/0.5mg Film) 1 film SUBLINGUAL TID [facility] Last Admin: 12/27/21 09:49 Dose: 1 film Documented By: ROYAL Buspirone HCl (Buspirone Hcl 5 Mg Tablet) 15 mg PO BID [facility] Last Admin: 12/27/21 09:51 Dose: 15 mg Documented By: ROYAL Duloxetine HCl (Duloxetine Hcl 60 Mg Capsule.Dr) 60 mg PO BID [facility] Last Admin: 12/27/21 09:51 Dose: 60 mg Documented By: ROYAL Enoxaparin Sodium (Enoxaparin Sodium 40 Mg/0.4 Ml Syringe) 40 mg SUBCUT Q24H [facility] Last Admin: 12/26/21 18:42 Dose: 40 mg Documented By: JEYSON Fluticasone Propionate (Fluticasone Propionate 100 Mcg Blst.W.Dev) 2 puff INHALE RBID [facility] Last Admin: 12/27/21 07:39 Dose: 2 puff Documented By: AMY Furosemide (Furosemide 20 Mg/2 Ml Vial) 20 mg IVPUSH BID@0900,1800 [facility]; Protocol Last Admin: 12/27/21 09:53 Dose: 20 mg Documented By: ROYAL Gabapentin (Gabapentin 100 Mg Capsule) 200 mg PO TID [facility] Last Admin: 12/27/21 09:51 Dose: 200 mg Documented By: ROYAL Omeprazole (Omeprazole 20 Mg Capsule.) 20 mg PO DAILY@0630 [facility] Last Admin: 12/27/21 06:01 Dose: 20 mg Documented By: MELINDA Ondansetron HCl (Ondansetron Hcl 4 Mg/2 Ml Vial) 4 mg IVPUSH Q6H PRN PRN Reason: Nausea and Vomiting Last Admin: 12/24/21 05:58 Dose: 4 mg Documented By: MARBELLA Pharmacy Consult (Consult Rx Perform Med Rec) 1 each MISCELLANE ONCE PRN PRN Reason: Consult order Pramipexole Dihydrochloride (Pramipexole Di-Hcl 0.125 Mg Tablet) 0.125 mg PO BID [facility] Last Admin: 12/27/21 09:49 Dose: 0.125 mg Documented By: ROYAL Sodium Chloride (0.9 % Sodium Chloride Flush 3 Ml Syringe) 3 ml IVFLUSH QSHIFT [facility] Last Admin: 12/27/21 09:49 Dose: Not Given Documented By: ROYAL Non-Admin Reason: IV Running Sodium Chloride (Sodium Chloride 0.65 % Nasal 44 Ml Sprbtl) 2 spray NOSTRIL-B QID PRN PRN Reason: Nasal Congestion Last Admin: 12/24/21 09:25 Dose: 2 spray Documented By: DUANE Thiamine HCl (Thiamine Hcl 100 Mg Tablet) 100 mg PO DAILY [facility] Last Admin: 12/27/21 09:52 Dose: 100 mg Documented By: ROYAL Tobramycin Sulfate (Tobramycin Sulfate 0.3% Pati Op 5 Ml Btl) 1 drop EYE-BOTH QID [facility] Last Admin: 12/27/21 09:53 Dose: 1 drop Documented By: ROYAL Labs CBC & Chem 7: 12/27/21 06:08 12/27/21 06:08 Labs: Laboratory Results - last 24 hr 12/26/21 12/26/21 12/26/21 22:49 22:49 22:56 MCV 92.8 MCH 30.8 MCHC 33.2 RDW 15.6 Plt Count 133 L MPV 9.6 Immature Gran % (Auto) 1.2 H Neut % (Auto) 77.8 H Lymph % (Auto) 10.2 L [place] % (Auto) 5.0 Eos % (Auto) 5.6 H Baso % (Auto) 0.2 Lymph # (Auto) 0.5 L [place] # (Auto) 0.3 Eos # (Auto) 0.3 Baso # (Auto) 0.0 Abs Immat Gran (auto) 0.06 H Absolute Neuts (auto) 3.9 Absolute Nucleated RBC 0.000 Nucleated RBC % (auto) 0.0 Anion Gap Estim Creat Clear Calc Estimated GFR Random Glucose Lactic Acid 0.9 Calcium Total Bilirubin Direct Bilirubin AST ALT Alkaline Phosphatase Total Protein Albumin 25-OH Vitamin D Total 25-Hydroxy Vitamin D2 25-Hydroxy Vitamin D3 Urine Color STRAW Urine Appearance HAZY Urine pH 6.0 Ur Specific [place] 1.010 Urine Protein NEG Urine Glucose (UA) NEG Urine Ketones NEG Urine Blood NEG Urine Nitrite NEG Ur Leukocyte Esterase NEG 12/26/21 12/27/21 12/27/21 Unknown 06:08 06:08 MCV 92.8 MCH 30.7 MCHC 33.1 RDW 15.5 Plt Count 113 L MPV 9.6 Immature Gran % (Auto) Neut % (Auto) Lymph % (Auto) [place] % (Auto) Eos % (Auto) Baso % (Auto) Lymph # (Auto) [place] # (Auto) Eos # (Auto) Baso # (Auto) Abs Immat Gran (auto) Absolute Neuts (auto) Absolute Nucleated RBC 0.000 Nucleated RBC % (auto) 0.0 Anion Gap 10 L Estim Creat Clear Calc 55.1 Estimated GFR 60 Random Glucose 88 Lactic Acid Calcium 11.0 H Total Bilirubin Direct Bilirubin AST ALT Alkaline Phosphatase Total Protein Albumin 25-OH Vitamin D Total Cancelled 25-Hydroxy Vitamin D2 Cancelled 25-Hydroxy Vitamin D3 Cancelled Urine Color Urine Appearance Urine pH Ur Specific [place] Urine Protein Urine Glucose (UA) Urine Ketones Urine Blood Urine Nitrite Ur Leukocyte Esterase 12/27/21 06:08 MCV MCH MCHC RDW Plt Count MPV Immature Gran % (Auto) Neut % (Auto) Lymph % (Auto) [place] % (Auto) Eos % (Auto) Baso % (Auto) Lymph # (Auto) [place] # (Auto) Eos # (Auto) Baso # (Auto) Abs Immat Gran (auto) Absolute Neuts (auto) Absolute Nucleated RBC Nucleated RBC % (auto) Anion Gap Estim Creat Clear Calc Estimated GFR Random Glucose Lactic Acid Calcium Total Bilirubin 0.5 Direct Bilirubin 0.3 AST 21 ALT 16 Alkaline Phosphatase 66 Total Protein 4.7 L Albumin 2.4 L 25-OH Vitamin D Total 25-Hydroxy Vitamin D2 25-Hydroxy Vitamin D3 Urine Color Urine Appearance Urine pH Ur Specific [place] Urine Protein Urine Glucose (UA) Urine Ketones Urine Blood Urine Nitrite Ur Leukocyte Esterase Assessment and Plan (1) New onset atrial fibrillation: Status: Acute (2) Hypercalcemia: Status: Acute (3) Falls: Status: Acute (4) Hypokalemia: Status: Acute Plan 71F presented with falls, found to have severe hypercalcemia, brief episode of afib with rvr in ED. metabolic encephalopathy , improving due to hypercalcemia low PTH, normal vitamin-D questionable lesion on left breast on CTA chest, pending oncology evaluation corrected calcium level improving slowly, 12.1 today continue normal saline with lasix follow BMP immunofixation showing no abnormalities pending PTHRh, 1, 25 dihydroxy vit D ( might take days before the results) nephro input appreciated, start [facility] consult hypokalemia Potassium improved Give replacement and follow BMP physical deconditioning Hip PT evaluation epsiode of afib was brief, related to electrolyte imbalance, now in NSR Echo showed normal EF of 60 65% monitor for now moderate persistent asthma/copd albuterol as needed DM sugars normal, has lost weight, not on meds, will check a1c, possibly resolved opiate dependence suboxone mood disorder cymbalta buspar htn hold hctz, monitor, bp controlled dvt prophylaxis - lovenox DNR/DNI reason for continued hospitalization:ongoing treatment with iv meds for hypercalcemia, close monitoring Quality Stroke Does the patient have a stroke diagnosis?: No VTE Prior VTE?: No VTE Risk Level:: Medical - moderate - high VTE Device Contraindication: Treatment Not Indicated VTE Drug Contraindication: N/A - Med Ordered
--- NOTE | 2021-12-27 12:08 | P.CNHO_ITS ---
Subjective - Subjective Chief complaint: Consult for: 1. Hypercalcemia. 2. Breast mass. Patient: new to practice Consult date: 12/27/21 Requesting Physician: Ana. Primary Care Provider: Tray Miles MD Medical Summary: DIAGNOSIS: 1. HYPERCALCEMIA. 2. BREAST MASS. HPI - Consult Narrative Reason for consult: CONSULT FOR: 1. HYPERCALCEMIA. 2. BREAST MASS. Narrative: Aracelis Plascencia is a pleasant 71 year old lady, came in from home for evaluation of fall.? She was recently seen in the emergency department for mechanical fall secondary to lower extremities swelling and edema. Evaluated by case management for possible placement. She was was sent home with home physical therapy and PT at home. She fell in the morning hitting her head, patient does not recall details of fa lling, she had been vomiting in the emergency department.? Complaining of mild headache. In ED, she became hypoxic to 88%; this corrected with supplemental O2. CTA of the chest failed to demonstrate a PE. CT scan of the abdomen from 12/23 revealed: *No acute cardiopulmonary abnormalities identified. No evidence of pneumonia or active pulmonary edema. *Moderate diffuse aortic calcific atherosclerosis. *Partial visualization of dermal thickening of the left breast. Findings could represent chronic scarring or acute traumatic inflammatory changes. Alternatively, findings could represent cellulitis or possible inflammatory carcinoma. Consider further evaluation with dedicated mammography of the left breast as clinically indicated. *Partially healed subacute fracture of the lateral segment of the left 10th rib. This finding demonstrates evidence of interval progression of healing compared with 08/17/2021. CT abdomen and pelvis: *Moderate focal subcutaneous inflammatory changes along the left flank new compared with 08/17/2021. Mild subcutaneous reticulation adjacent to the right hip. Both findings may represent acute traumatic soft tissue inflammatory changes. *Partially healed, subacute fracture of the lateral segment of the left 10th rib with interval progression of healing compared with 08/17/2021. *Mild diffuse intrahepatic biliary duct dilatation and moderate diffuse prominence of the common bile duct. Findings are slightly increased in prominence compared with 08/17/2021. No cholelithiasis identified though CT has low sensitivity in the detection of cholelithiasis. As clinically indicated, consider further evaluation with right upper quadrant ultrasound. *Mild colonic diverticulosis. No evidence of acute diverticulitis. *Small hiatal hernia. Patient also developed atrial fibrillation with a rapid ventricular response; during multiple episodes of vomiting patient's heart rate went into the 30s and she subsequently converted back to normal sinus rhythm. Multiple imaging including CT of the head CT abdomen pelvis and CTA chest failed to demonstrate any acute pathology. Labs revealed: Calcium that corrects to 10.7. She was admitted for treatment of same. [facility] Anxiety Asthma Asthma exacerbation Asthma-COPD overlap syndrome Chronic bronchitis COPD (chronic obstructive pulmonary disease) Depression Diabetes mellitus, type 2 Dyspnea GERD (gastroesophageal reflux disease) Pneumonitis Surgical History: History of section History of shoulder surgery Family History: Father of Cancer Mother No problems noted. Social History: Alcohol intake: former Patient Tobacco Use Status: Never used Tobacco Review of Systems She does feel rather fatigued. No fever chills or night sweats. Appetite is not that good. She has lost weight. Denies headaches no dizziness. She does appear rather confused. Denies chest pain, nor shortness of breath. Denies abdominal pain. No heartburn indigestion. Did admit to nausea vomiting, no diarrhea. Denies gross blood in the stools. No urinary complaints except for frequency. She does complain of diffuse joint pains. She is weak all over. She does appear depressed. No skin rashes not pruritus. Review of Systems - Constitutional Reports system reviewed and no additional complaints, except as documented, Reports anorexia, Reports body ache(s), Reports fatigue, Reports lack of energy, Reports malaise, Reports weakness, Denies fever(s) - Eyes Reports system reviewed and no additional complaints, except as documented, Denies blurry vision - ENT Reports system reviewed and no additional complaints, except as documented - Cardiovascular Reports system reviewed and no additional complaints, except as documented, Reports shortness of breath with activity, Denies chest pain at rest - Respiratory Reports no additional respiratory complaints, Denies chest congestion - Gastrointestinal Reports system reviewed and no additional complaints, except as documented, Reports nausea, Reports vomiting, Denies abdominal pain, Denies dyspepsia, Denies diarrhea - Genitourinary Reports no additional female genitourinary complaints, Denies abnormal vaginal bleeding - Musculoskeletal Reports system reviewed and no additional complaints, except as documented, Reports abnormal walking, Reports body aches - Integumentary/Breasts Skin/Breast: Reports no additional skin complaints - Neurologic Reports system reviewed and no additional complaints, except as documented, Reports behavioral changes, Reports memory loss, Reports weakness - Psychiatric Reports system reviewed and no additional complaints, except as documented, Reports anxiety - Endocrine Reports no additional endocrine complaints, Denies cold intolerance - Hematologic/Lymphatic Reports system reviewed and no additional complaints, except as documented, Denies easy bleeding - Allergic/Immunologic Reports system reviewed and no additional complaints, except as documented Oncology Screenings - ECOG Performance Status ECOG Performance Status: 1 [facility] Medical History: Medical History (Last Updated 12/25/21 @ 10:47 by Alonso Maguire MD) Anxiety Functional capacity: uses cane/walker Patient : No Family History: Family History (Last Reviewed 12/23/21 @ 16:22 by Armando Moyer DO) Father Cancer Mother No problems noted. Surgical History: Surgical History (Last Reviewed 12/23/21 @ 16:22 by Armando Moyer DO) History of section History of shoulder surgery Social History: Social History (Last Reviewed 12/23/21 @ 16:22 by Armando Moyer DO) Living Situation History: Household Members: Family Housing: Unknown / Unable to asses Alcohol History: Unable to assess alcohol history related to: Unable to respond Tobacco History: Patient Tobacco Use Status: Never used Tobacco Occupation Assessmet: service: No Home Medications and Allergies Current Medications: Current Medications Acetaminophen (Acetaminophen 325 Mg Tablet) 650 mg PO Q6H PRN PRN Reason: Pain, Mild (Pain Scale 1-3) Last Admin: 12/27/21 09:55 Dose: 650 mg Acetaminophen (Acetaminophen Supp 650 Mg Supp.Rect) [address] Q6H PRN PRN Reason: fever Last Admin: 12/26/21 23:00 Dose: 650 mg Albuterol Sulfate (Albuterol Sulfate 90 Mcg 8 Gm Inhaler) 2 puff INHALE Q6H PRN PRN Reason: shortness of breath or wheezing Buprenorphine/Naloxone (Buprenorphine/Naloxone 2/0.5mg Film) 1 film SUBLINGUAL TID [facility] Last Admin: 12/27/21 09:49 Dose: 1 film Buspirone HCl (Buspirone Hcl 5 Mg Tablet) 15 mg PO BID [facility] Last Admin: 12/27/21 09:51 Dose: 15 mg Duloxetine HCl (Duloxetine Hcl 60 Mg Capsule.Dr) 60 mg PO BID [facility] Last Admin: 12/27/21 09:51 Dose: 60 mg Enoxaparin Sodium (Enoxaparin Sodium 40 Mg/0.4 Ml Syringe) 40 mg SUBCUT Q24H [facility] Last Admin: 12/26/21 18:42 Dose: 40 mg Fluticasone Propionate (Fluticasone Propionate 100 Mcg Blst.W.Dev) 2 puff INHALE RBID [facility] Last Admin: 12/27/21 07:39 Dose: 2 puff Furosemide (Furosemide 20 Mg/2 Ml Vial) 20 mg IVPUSH BID@0900,1800 [facility]; Protocol Last Admin: 12/27/21 09:53 Dose: 20 mg Gabapentin (Gabapentin 100 Mg Capsule) 200 mg PO TID [facility] Last Admin: 12/27/21 09:51 Dose: 200 mg Omeprazole (Omeprazole 20 Mg Capsule.Dr) 20 mg PO DAILY@0630 [facility] Last Admin: 12/27/21 06:01 Dose: 20 mg Ondansetron HCl (Ondansetron Hcl 4 Mg/2 Ml Vial) 4 mg IVPUSH Q6H PRN PRN Reason: Nausea and Vomiting Last Admin: 12/24/21 05:58 Dose: 4 mg Pharmacy Consult (Consult Rx Perform Med Rec) 1 each MISCELLANE ONCE PRN PRN Reason: Consult order Pramipexole Dihydrochloride (Pramipexole Di-Hcl 0.125 Mg Tablet) 0.125 mg PO BID [facility] Last Admin: 12/27/21 09:49 Dose: 0.125 mg Sodium Chloride (0.9 % Sodium Chloride Flush 3 Ml Syringe) 3 ml IVFLUSH QSHIFT [facility] Last Admin: 12/27/21 09:49 Dose: Not Given Sodium Chloride (Sodium Chloride 0.65 % Nasal 44 Ml Sprbtl) 2 spray NOSTRIL-B QID PRN PRN Reason: Nasal Congestion Last Admin: 12/24/21 09:25 Dose: 2 spray Thiamine HCl (Thiamine Hcl 100 Mg Tablet) 100 mg PO DAILY [facility] Last Admin: 12/27/21 09:52 Dose: 100 mg Tobramycin Sulfate (Tobramycin Sulfate 0.3% Pati Op 5 Ml Btl) 1 drop EYE-BOTH QID [facility] Last Admin: 12/27/21 12:01 Dose: 1 drop Home Medications Medication Instructions Recorded Confirmed Type buspirone 15 mg tablet 15 mg PO BID 04/17/20 12/23/21 History duloxetine 60 mg capsule,delayed 60 mg PO BID 04/17/20 12/23/21 History release gabapentin 800 mg tablet 800 mg PO TID 04/17/20 12/23/21 History buprenorphine 2 mg-naloxone 0.5 mg 1 film sublingual TID 04/26/20 12/23/21 History sublingual film pramipexole 0.125 mg tablet 0.125 mg PO BID 04/26/20 12/23/21 History acetaminophen 500 mg tablet 1,000 mg PO Q8H 12/21/21 12/23/21 History albuterol sulfate 90 mcg/actuation 2 puff inhalation Q6H PRN 12/21/21 12/23/21 History aerosol inhaler shortness of breath or wheezing cholecalciferol (vitamin D3) 125 125 mcg PO DAILY 12/21/21 12/23/21 History mcg (5,000 unit) capsule fexofenadine 180 mg tablet 180 mg PO DAILY 12/21/21 12/23/21 History fluticasone propionate 110 2 puff inhalation BID 12/21/21 12/23/21 History mcg/actuation HFA aerosol inhaler (Flovent HFA) hydrochlorothiazide 25 mg tablet 25 mg PO DAILY 12/21/21 12/23/21 History methyl salicylate 30 %-menthol 10 1 appl topical TID PRN Muscle Pain 12/21/21 12/23/21 History % topical cream (Icy Hot) gcopejfe-otj-wsant acid 0.4 1 tab PO DAILY 12/21/21 12/23/21 History mg-lycopene 300 mcg-lutein 250 mcg tablet (Cerovite Senior) pantoprazole 40 mg tablet,delayed 40 mg PO DAILY 12/21/21 12/23/21 History release prednisone 10 mg tablet 10 mg PO DIRECTED 12/21/21 12/23/21 History sodium chloride 0.65 % nasal spray 2 spray intranasal QID PRN Nasal 12/21/21 12/23/21 History aerosol (Rotonda Nasal) Congestion thiamine HCl (vitamin B1) 100 mg 100 mg PO DAILY 12/21/21 12/23/21 History tablet tobramycin 0.3 % eye drops (Tobrex) 1 drp ophthalmic (eye) QID 12/21/21 12/23/21 History triamterene 37.5 1 tab PO DAILY 12/21/21 12/23/21 History mg-hydrochlorothiazide 25 mg tablet Allergies Allergy/AdvReac Type Severity Reaction Status Date / Time No Known Allergies Allergy Verified 08/07/21 15:02 [No Known Allergies*] Physical Exam Vital signs: Vital Signs Temp 98.1 F 12/27/21 11:26 Pulse 79 12/27/21 11:26 Resp 20 12/27/21 11:26 BP 116/56 L 12/27/21 11:26 Pulse Ox 96 12/27/21 11:26 O2 Del Method 12/27/21 11:26 O2 Flow Rate 2 12/27/21 11:26 Intake & Output 12/26/21 12/27/21 12/27/21 18:59 06:59 18:59 Intake Total 1596.25 / 2626.25 1030 / 2626.25 Output Total 750 / 1250 500 / 1250 Balance 846.25 / 1376.25 530 / 1376.25 Urine Output (Average ml/kg/hr) 0.76 0.51 0.51 Intake: Intake, Oral Amount 600 / 630 30 / 630 Intake, IV Amount 996.25 / 1995.25 1000 / 1995.25 0.9 % Sodium Chloride 1,000 ml 996. / 1995.25 1000 / 1995.25 @ 75 mls/hr IVCONT .[id number] [facility] Rx#:[id number] Output: Output, Urine Amount 750 / 1250 500 / 1250 Other: Breakfast % Eaten 50% Lunch % Eaten 50% Number of Incontinent Voids 3 1 Urine Bedpan Urine Color Yellow Yellow Weight 81.8 kg Hem/Onc Consult Result - Labs CBC & Chem 7: 12/29/21 06:25 12/29/21 06:08 Labs: Short CBC 12/26/21 12/27/21 Range/Units 22:49 06:08 WBC 5.0 3.6 L (4.8-10.8) X10*3/uL Hgb 9.0 L 8.1 L (12.0-16.0) g/dl Hct 27.1 L 24.5 L (37.0-47.0) % Plt Count 133 L 113 L (160-400) X10*3/uL BMP 12/27/21 06:08 Sodium 136 Potassium 3.3 Chloride 100 Carbon Dioxide 29 BUN 20 H Creatinine 0.92 Calcium 11.0 H Liver Function 12/27/21 Range/Units 06:08 Total Bilirubin 0.5 (0.0-1.0) mg/dL Direct Bilirubin 0.3 (0.0-0.5) mg/dL AST 21 (5-31) U/L ALT 16 (0-31) U/L Alkaline Phosphatase 66 (39-117) U/L Albumin 2.4 L (3.5-5.0) g/dL Urine 12/26/21 Range/Units 22:56 Urine Color STRAW Urine Appearance HAZY Urine pH 6.0 (5.0-8.0) Ur Specific [place] 1.010 (1.005-1.025) Urine Protein NEG (NEG-TRACE) MG/DL Urine Glucose (UA) NEG (NEG) MG/DL Assessment and Plan Patient Active problem list reviewed?: Yes (1) Hypercalcemia Status: Acute Assessment and plan: 71-year-old lady who presented with a fall at home. She did complain of nausea, vomiting and shortness of breath. She was noted to be hypercalcemic. CT chest revealed no PE however did raise concern for left breast thickening/mass. DIFFERENTIAL DIAGNOSIS: 1. Related to diuretics: She was on hydrochlorothiazide. 2. Primary hyperthyroidism. 3. Multiple myeloma: 4 hypercalcemia of excessive vitamin D intake. 5. Malignancy related hypercalcemia. PLAN: Check iPTH. SIEP was checked and is within normal limits.. Agree with IV hydration with normal saline. Agree with IV Lasix to increase calcium excretion. She had received calcitonin. However serum calcium is still elevated. For now will give IV bisphosphonate, for more rapid correction of the hypercalcemia. Hold vitamin D supplementation. Will get a mammogram as an outpatient. Will make further plans based upon the above results. Thank you, I will follow along with you, Cc: - Time Spent With Patient Time Spent with Patient (in minutes): 30
[2021-12-27] MEDS: Pamidronate Disodium 60 MG in 0.9 % Sodium Chloride 250 ML 130 MG IV (14:07)
[2021-12-27] MEDS: Enoxaparin Sodium 40 MG/0.4 ML SYRINGE SUBCUT (15:45)
[2021-12-27] MEDS: 0.9 % Sodium Chloride Flush 3 ML SYRINGE IVFLUSH ×2 (15:46→20:15)
[2021-12-28] VITALS (11 sets, daily range): BP systolic 100–137; BP diastolic 48–63; PULSE 76–91; RESP 16–20; TEMP 36.4–37.3; O2SAT 93–96
[2021-12-28] MEDS: Omeprazole 20 MG CAPSULE.DR PO (06:18)
[2021-12-28] MEDS: Acetaminophen 325 MG TABLET 650 MG PO ×3 (06:31→21:59)
[2021-12-28] MEDS: Fluticasone Propionate 100 MCG BLST.W.DEV 2 PUFF INHALE ×2 (08:13→19:54)
[2021-12-28] MEDS: DULoxetine HCl 60 MG CAPSULE.DR PO ×2 (08:52→21:58)
[2021-12-28] MEDS: busPIRone HCl 5 MG TABLET 15 MG PO ×2 (08:53→21:59)
[2021-12-28] MEDS: Gabapentin 100 MG CAPSULE 200 MG PO ×3 (08:53→21:58)
[2021-12-28] MEDS: Thiamine HCL 100 MG TABLET PO (08:53)
[2021-12-28] MEDS: 0.9 % Sodium Chloride Flush 3 ML SYRINGE IVFLUSH ×2 (08:53→17:44)
[2021-12-28] MEDS: Buprenorphine/Naloxone 2/0.5mg FILM 1 FILM SUBLINGUAL ×3 (08:53→21:58)
[2021-12-28] MEDS: Pramipexole Di-HCL 0.125 MG TABLET PO ×2 (08:53→21:59)
[2021-12-28] MEDS: Tobramycin Sulfate 0.3% Sol Op 5 ML BTL 1 DROP EYE-BOTH ×2 (08:54→14:19)
[2021-12-28] MEDS: Furosemide 20 MG/2 ML VIAL IVPUSH ×2 (08:54→17:43)
[2021-12-28 10:48] LABS: Hematocrit 27.1 % (37.0-47.0); Hemoglobin 9.2 g/dl (12.0-16.0); Mean Corpuscular HGB Conc 33.9 g/dl (31.0-35.0); Mean Corpuscular Hemoglobin 31.2 pg (27.0-33.0); Mean Corpuscular Volume 91.9 fL (80.0-98.0); Mean Platelet Volume 9.6 fL (9.4-12.3); Platelet Count 148 X10*3/uL (160-400); Red Blood Count 2.95 X10*6/uL (4.20-5.50); Red Cell Distribution Width 15.4 % (11.0-16.0); White Blood Count 4.5 X10*3/uL (4.8-10.8)
[2021-12-28 11:06] LABS: Anion Gap 9 (12-20); Blood Urea Nitrogen 16 mg/dL (9-16); Calcium 11.2 mg/dL (8.4-10.2); Carbon Dioxide 30 mmol/L (22-29); Chloride 96 mmol/L (96-108); Creatinine Clr Calc Pharmacy 52.8; Estimated Glomerular Filt Rate 57; Glucose Random 139 mg/dL (60-115); Potassium 2.8 mmol/L (3.3-5.1); Sodium 132 mmol/L (135-145)
[2021-12-28] MEDS: polyethylene glycoL 3350 17 GM POWD.PACK PO ×2 (11:16→21:59)
--- NOTE | 2021-12-28 12:29 | PM.PNNEP ---
Subjective Subjective Date of Service: 12/28/21 Interval history: the patient was seen and evaluated this morning Laying in bed, reports improvement since yesterday Looking to start moving today No reported other overnight events. Systemic review: No fever, chills but reports generalized weakness No chest pain, palpitation No shortness of breath or coughing No abdominal pain, nausea or vomiting No urinary symptoms No any rash or wounds Physical Exam Vital Signs: Vital Signs: Last Vital Signs Temp 97.5 F 12/28/21 12:00 Pulse 78 12/28/21 12:00 Resp 20 12/28/21 12:00 BP 115/60 12/28/21 12:00 Pulse Ox 95 12/28/21 12:00 O2 Del Method 12/28/21 12:00 O2 Flow Rate 2 12/28/21 12:00 BMI result Body Mass Index 31.9 Const: General: alert and awake Neck: Neck: Yes supple and Yes no JVD Resp: Auscultation: no rales and no rhonchi Cardio: Jugular venous distension: no JVD Rate: not tachycardic Heart sounds: no rubs Skin: Rashes: no rashes Neuro: Gait exam (Neuro): not ataxic Motor exam (neuro): No Asterixis during motor activity present Objective Data Labs CBC & Chem 7: 12/28/21 10:28 12/28/21 10:28 Labs: Laboratory Results - last 24 hr 12/28/21 12/28/21 10:28 10:28 WBC 4.5 L RBC 2.95 L Hgb 9.2 L Hct 27.1 L MCV 91.9 MCH 31.2 MCHC 33.9 RDW 15.4 Plt Count 148 L D MPV 9.6 Absolute Nucleated RBC 0.000 Nucleated RBC % (auto) 0.0 Sodium 132 L Potassium 2.8 L Chloride 96 Carbon Dioxide 30 H Anion Gap 9 L BUN 16 Creatinine 0.96 Estim Creat Clear Calc 52.8 Estimated GFR 57 Random Glucose 139 H Calcium 11.2 H Microbiology Microbiology Results: Microbiology 12/26/21 22:49 Blood - Venous Blood Culture - Preliminary No growth after 24 hours. 12/26/21 22:49 Blood - Venous Blood Culture - Preliminary No growth after 24 hours. Procedures Date of Service Date of Service: 12/28/21 Assessment & Plan Assessment and plan (1) Hypercalcemia: Status: Acute Plan Severe hypercalemia with suppressed PTH ANEMIA Renal function is stable; No proteinuria Hypokalemia Suggest Avoid calcium supplements Check PTH related peptide and 1,25 [place] Vit D No monoclonal protein is urine DC Lasix agree with Pamidronate Oncology evaluation Replace K orally Time Spent With Patient Time: Total time spent is greater than 50% in coordination of care (as documented) at patient's floor/unit and/or counseling patient: Progress Note: Quality Stroke Does the patient have a stroke diagnosis?: No
--- NOTE | 2021-12-28 12:30 | P.PNIM_ITS ---
Subjective Subjective Date of Service: 12/28/21 Interval History: the patient was seen and evaluated this morning Sitting in the chair, does not feel that comfortable and reporting feeling weak overall No reported overnight events Calcium increased to 11.2 No reported other overnight events. Systemic review: No fever, chills but reports generalized weakness No chest pain, palpitation No shortness of breath or coughing No abdominal pain, nausea or vomiting No urinary symptoms No any rash or wounds Physical Exam Vital Signs: Vital Signs: Last Vital Signs Temp 97.5 F 12/28/21 12:00 Pulse 78 12/28/21 12:00 Resp 20 12/28/21 12:00 BP 115/60 12/28/21 12:00 Pulse Ox 95 12/28/21 12:00 O2 Del Method 12/28/21 12:00 O2 Flow Rate 2 12/28/21 12:00 BMI result Body Mass Index 31.9 Const: Other: Constitutional : Alert, interactive, not in distress Neck : Normal inspection, Supple Cardiovascular : RRR, no JVP, no lower extremity edema Respiratory : fair bilateral air entry, no crackles, wheezes or rhonchi Gastrointestinal: soft, lax, Normal bowel sounds, Non tender Skin : Warm, Dry Neurological : Alert & oriented x3, No focal deficit , CN 2-12 within normal Objective Data Active Medications Acetaminophen (Acetaminophen 325 Mg Tablet) 650 mg PO Q6H PRN PRN Reason: Pain, Mild (Pain Scale 1-3) Last Admin: 12/28/21 11:15 Dose: 650 mg Documented By: ESCOBAR Acetaminophen (Acetaminophen Supp 650 Mg Supp.Rect) 650 mg [place] Q6H PRN PRN Reason: fever Last Admin: 12/26/21 23:00 Dose: 650 mg Documented By: MELINDA Albuterol Sulfate (Albuterol Sulfate 90 Mcg 8 Gm Inhaler) 2 puff INHALE Q6H PRN PRN Reason: shortness of breath or wheezing Buprenorphine/Naloxone (Buprenorphine/Naloxone 2/0.5mg Film) 1 film SUBLINGUAL TID [facility] Last Admin: 12/28/21 08:53 Dose: 1 film Documented By: ESCOBAR Buspirone HCl (Buspirone Hcl 5 Mg Tablet) 15 mg PO BID [facility] Last Admin: 12/28/21 08:53 Dose: 15 mg Documented By: ESCOBAR Duloxetine HCl (Duloxetine Hcl 60 Mg Capsule.) 60 mg PO BID [facility] Last Admin: 12/28/21 08:52 Dose: 60 mg Documented By: ESCOBAR Enoxaparin Sodium (Enoxaparin Sodium 40 Mg/0.4 Ml Syringe) 40 mg SUBCUT Q24H [facility] Last Admin: 12/27/21 15:45 Dose: 40 mg Documented By: ROYAL Fluticasone Propionate (Fluticasone Propionate 100 Mcg Blst.W.Dev) 2 puff INHALE RBID [facility] Last Admin: 12/28/21 08:13 Dose: 2 puff Documented By: MORE Furosemide (Furosemide 20 Mg/2 Ml Vial) 20 mg IVPUSH BID@0900,1800 [facility]; Protocol Last Admin: 12/28/21 08:54 Dose: 20 mg Documented By: ESCOBAR Gabapentin (Gabapentin 100 Mg Capsule) 200 mg PO TID [facility] Last Admin: 12/28/21 08:53 Dose: 200 mg Documented By: ESCOBAR Omeprazole (Omeprazole 20 Mg Capsule.) 20 mg PO DAILY@0630 [facility] Last Admin: 12/28/21 06:18 Dose: 20 mg Documented By: MELINDA Ondansetron HCl (Ondansetron Hcl 4 Mg/2 Ml Vial) 4 mg IVPUSH Q6H PRN PRN Reason: Nausea and Vomiting Last Admin: 12/24/21 05:58 Dose: 4 mg Documented By: MARBELLA Pharmacy Consult (Consult Rx Perform Med Rec) 1 each MISCELLANE ONCE PRN PRN Reason: Consult order Polyethylene Glycol (Polyethylene Glycol 3350 17 Gm Powd.Pack) 17 gm PO BID [facility] Last Admin: 12/28/21 11:16 Dose: 17 gm Documented By: ESCOBAR Pramipexole Dihydrochloride (Pramipexole Di-Hcl 0.125 Mg Tablet) 0.125 mg PO BID [facility] Last Admin: 12/28/21 08:53 Dose: 0.125 mg Documented By: ESCOBAR Sodium Chloride (0.9 % Sodium Chloride Flush 3 Ml Syringe) 3 ml IVFLUSH QSHIFT [facility] Last Admin: 12/28/21 08:53 Dose: 3 ml Documented By: ESCOBAR Sodium Chloride (Sodium Chloride 0.65 % Nasal 44 Ml Sprbtl) 2 spray NOSTRIL-B QID PRN PRN Reason: Nasal Congestion Last Admin: 12/24/21 09:25 Dose: 2 spray Documented By: DUANE Thiamine HCl (Thiamine Hcl 100 Mg Tablet) 100 mg PO DAILY [facility] Last Admin: 12/28/21 08:53 Dose: 100 mg Documented By: ESCOBAR Tobramycin Sulfate (Tobramycin Sulfate 0.3% Pati Op 5 Ml Btl) 1 drop EYE-BOTH QID [facility] Last Admin: 12/28/21 08:54 Dose: 1 drop Documented By: ESCOBAR Labs CBC & Chem 7: 12/28/21 10:28 12/28/21 10:28 Labs: Laboratory Results - last 24 hr 12/28/21 12/28/21 10:28 10:28 MCV 91.9 MCH 31.2 MCHC 33.9 RDW 15.4 Plt Count 148 L D MPV 9.6 Absolute Nucleated RBC 0.000 Nucleated RBC % (auto) 0.0 Anion Gap 9 L Estim Creat Clear Calc 52.8 Estimated GFR 57 Random Glucose 139 H Calcium 11.2 H Microbiology Microbiology Results: Microbiology 12/26/21 22:49 Blood Culture - Preliminary Blood - Venous No growth after 24 hours. 12/26/21 22:49 Blood Culture - Preliminary Blood - Venous No growth after 24 hours. Assessment and Plan (1) Hypokalemia: Status: Acute (2) Falls: Status: Acute (3) Hypercalcemia: Status: Acute Plan 71F presented with falls, found to have severe hypercalcemia, brief episode of afib with rvr in ED. metabolic encephalopathy Improved almost to baseline Secondary to hypercalcemia and medications Decreased dose of gabapentin to 200 t.i.d. next [place] treat underlying problems Secondary Hypercalcemia low PTH, normal vitamin-D questionable lesion on left breast on CTA chest, to do mammogram as outpatient corrected calcium level remains elevated around 12 Received pamidronate continue normal saline with lasix follow BMP immunofixation showing no abnormalities pending PTHRh, 1, 25 dihydroxy vit D ( might take days before the results) nephro input appreciated Oncology input appreciated hypokalemia Give potassium Give replacement and follow BMP physical deconditioning PT evaluation epsiode of afib was brief, related to electrolyte imbalance, now in NSR Echo showed normal EF of 60 65% monitor for now moderate persistent asthma/copd albuterol as needed DM sugars normal, has lost weight, not on meds, will check a1c, possibly resolved opiate dependence suboxone mood disorder cymbalta buspar htn hold hctz, monitor, bp controlled dvt prophylaxis - lovenox DNR/DNI reason for continued hospitalization:ongoing treatment with iv meds for hypercalcemia, close monitoring Quality Stroke Does the patient have a stroke diagnosis?: No VTE Prior VTE?: No VTE Risk Level:: Medical - moderate - high VTE Device Contraindication: Treatment Not Indicated VTE Drug Contraindication: N/A - Med Ordered
[2021-12-28] MEDS: Potassium Chloride Packet 20 MEQ PACKET 40 MEQ PO ×2 (14:13→17:43)
[2021-12-28] MEDS: bisacodyL 10 MG SUPP.RECT PR (14:13)
[2021-12-28] MEDS: 0.9 % Sodium Chloride 1,000 ML 80 ML IVCONT (14:15)
[2021-12-28] MEDS: Enoxaparin Sodium 40 MG/0.4 ML SYRINGE SUBCUT (17:43)
[2021-12-29] MEDS: 0.9 % Sodium Chloride 1,000 ML 80 ML IVCONT ×2 (02:20→12:15)
[2021-12-29 03:44] VITALS: BP 124/59; PULSE 74; RESP 18; TEMP 36.3; O2SAT 96
[2021-12-29] MEDS: Omeprazole 20 MG CAPSULE.DR PO (06:28)
[2021-12-29 06:51] LABS: Hematocrit 27.1 % (37.0-47.0); Hemoglobin 9.1 g/dl (12.0-16.0); Mean Corpuscular HGB Conc 33.6 g/dl (31.0-35.0); Mean Corpuscular Hemoglobin 30.6 pg (27.0-33.0); Mean Corpuscular Volume 91.2 fL (80.0-98.0); Mean Platelet Volume 9.7 fL (9.4-12.3); Platelet Count 150 X10*3/uL (160-400); Red Blood Count 2.97 X10*6/uL (4.20-5.50); Red Cell Distribution Width 15.3 % (11.0-16.0); White Blood Count 3.8 X10*3/uL (4.8-10.8)
[2021-12-29 06:51] LABS: Anion Gap 9 (12-20); Blood Urea Nitrogen 15 mg/dL (9-16); Calcium 10.4 mg/dL (8.4-10.2); Carbon Dioxide 30 mmol/L (22-29); Chloride 98 mmol/L (96-108); Creatinine Clr Calc Pharmacy 65.9; Estimated Glomerular Filt Rate > 60; Glucose Random 95 mg/dL (60-115); Sodium 134 mmol/L (135-145)
[2021-12-29 07:10] LABS: Albumin Level 2.5 g/dL (3.5-5.0)
[2021-12-29 07:27] VITALS: BP 139/65; PULSE 82; RESP 20; TEMP 36.6; O2SAT 97
[2021-12-29] MEDS: Fluticasone Propionate 100 MCG BLST.W.DEV 2 PUFF INHALE (08:09)
[2021-12-29 08:10] VITALS: PULSE 82; RESP 18; O2SAT 97
[2021-12-29] MEDS: DULoxetine HCl 60 MG CAPSULE.DR PO ×2 (08:19→21:19)
[2021-12-29] MEDS: Pramipexole Di-HCL 0.125 MG TABLET PO ×2 (08:20→21:13)
[2021-12-29] MEDS: Thiamine HCL 100 MG TABLET PO (08:20)
[2021-12-29] MEDS: Furosemide 20 MG/2 ML VIAL IVPUSH ×2 (08:20→18:12)
[2021-12-29] MEDS: Gabapentin 100 MG CAPSULE 200 MG PO ×3 (08:20→21:19)
[2021-12-29] MEDS: Tobramycin Sulfate 0.3% Sol Op 5 ML BTL 1 DROP EYE-BOTH ×4 (08:20→21:28)
[2021-12-29] MEDS: busPIRone HCl 5 MG TABLET 15 MG PO ×2 (08:20→21:12)
[2021-12-29] MEDS: 0.9 % Sodium Chloride Flush 3 ML SYRINGE IVFLUSH ×2 (08:20→16:13)
[2021-12-29] MEDS: Potassium Chloride Packet 20 MEQ PACKET 40 MEQ PO ×2 (08:20→12:17)
[2021-12-29] MEDS: polyethylene glycoL 3350 17 GM POWD.PACK PO ×2 (08:20→21:28)
[2021-12-29] MEDS: Buprenorphine/Naloxone 2/0.5mg FILM 1 FILM SUBLINGUAL ×3 (08:20→21:29)
--- NOTE | 2021-12-29 09:39 | MHC.CM.PN ---
PT is recommending STR. D/T Suboxone, only options for SNF are [facility] and [facility] [place], in this area. Patient has [facility] and these 2 SNFs may have to obtain an OON agreement with [facility] to admit. CM will follow.
--- NOTE | 2021-12-29 11:47 | HO.PM.IMPN ---
Subjective Subjective Date of Service: 12/29/21 Interval History: the patient was seen and evaluated this morning Feels better and more comfortable but still reporting feeling weak overall No reported overnight events Corrected calcium improved to 11.4 No reported other overnight events. Systemic review: No fever, chills but reports generalized weakness No chest pain, palpitation No shortness of breath or coughing No abdominal pain, nausea or vomiting No urinary symptoms No any rash or wounds Physical Exam Vital Signs: Vital Signs: Last Vital Signs Temp 97.9 F 12/29/21 07:27 Pulse 82 12/29/21 08:10 Resp 18 12/29/21 08:10 BP 139/65 12/29/21 07:27 Pulse Ox 97 12/29/21 07:27 O2 Del Method 12/29/21 07:27 O2 Flow Rate 2 12/29/21 07:27 BMI result Body Mass Index 31.9 Const: Other: Constitutional : Alert, interactive, not in distress Neck : Normal inspection, Supple Cardiovascular : RRR, no JVP, no lower extremity edema Respiratory : fair bilateral air entry, no crackles, wheezes or rhonchi Gastrointestinal: soft, lax, Normal bowel sounds, Non tender Skin : Warm, Dry Neurological : Alert & oriented x3, No focal deficit , CN 2-12 within normal Objective Data Active Medications Acetaminophen (Acetaminophen 325 Mg Tablet) 650 mg PO Q6H PRN PRN Reason: Pain, Mild (Pain Scale 1-3) Last Admin: 12/28/21 21:59 Dose: 650 mg Documented By: BRANDAN Acetaminophen (Acetaminophen Supp 650 Mg Supp.Rect) 650 mg [place] Q6H PRN PRN Reason: fever Last Admin: 12/26/21 23:00 Dose: 650 mg Documented By: MELINDA Albuterol Sulfate (Albuterol Sulfate 90 Mcg 8 Gm Inhaler) 2 puff INHALE Q6H PRN PRN Reason: shortness of breath or wheezing Buprenorphine/Naloxone (Buprenorphine/Naloxone 2/0.5mg Film) 1 film SUBLINGUAL TID [facility] Last Admin: 12/29/21 08:20 Dose: 1 film Documented By: REE Buspirone HCl (Buspirone Hcl 5 Mg Tablet) 15 mg PO BID [facility] Last Admin: 12/29/21 08:20 Dose: 15 mg Documented By: REE Duloxetine HCl (Duloxetine Hcl 60 Mg Capsule.) 60 mg PO BID [facility] Last Admin: 12/29/21 08:19 Dose: 60 mg Documented By: REE Enoxaparin Sodium (Enoxaparin Sodium 40 Mg/0.4 Ml Syringe) 40 mg SUBCUT Q24H [facility] Last Admin: 12/28/21 17:43 Dose: 40 mg Documented By: JYOTHI Fluticasone Propionate (Fluticasone Propionate 100 Mcg Blst.W.Dev) 2 puff INHALE RBID [facility] Last Admin: 12/29/21 08:09 Dose: 2 puff Documented By: MORE Furosemide (Furosemide 20 Mg/2 Ml Vial) 20 mg IVPUSH BID@0900,1800 [facility]; Protocol Last Admin: 12/29/21 08:20 Dose: 20 mg Documented By: REE Gabapentin (Gabapentin 100 Mg Capsule) 200 mg PO TID [facility] Last Admin: 12/29/21 08:20 Dose: 200 mg Documented By: REE Sodium Chloride (Ns) 1,000 mls @ 80 mls/hr IVCONT .[id number] [facility] Last Admin: 12/29/21 02:20 Dose: 80 mls/hr Documented By: BRANDAN Omeprazole (Omeprazole 20 Mg Capsule.) 20 mg PO DAILY@0630 [facility] Last Admin: 12/29/21 06:28 Dose: 20 mg Documented By: BRANDAN Ondansetron HCl (Ondansetron Hcl 4 Mg/2 Ml Vial) 4 mg IVPUSH Q6H PRN PRN Reason: Nausea and Vomiting Last Admin: 12/24/21 05:58 Dose: 4 mg Documented By: MARBELLA Pharmacy Consult (Consult Rx Perform Med Rec) 1 each MISCELLANE ONCE PRN PRN Reason: Consult order Polyethylene Glycol (Polyethylene Glycol 3350 17 Gm Powd.Pack) 17 gm PO BID [facility] Last Admin: 12/29/21 08:20 Dose: 17 gm Documented By: REE Pramipexole Dihydrochloride (Pramipexole Di-Hcl 0.125 Mg Tablet) 0.125 mg PO BID [facility] Last Admin: 12/29/21 08:20 Dose: 0.125 mg Documented By: REE Sodium Chloride (0.9 % Sodium Chloride Flush 3 Ml Syringe) 3 ml IVFLUSH QSHIFT [facility] Last Admin: 12/29/21 08:20 Dose: 3 ml Documented By: REE Sodium Chloride (Sodium Chloride 0.65 % Nasal 44 Ml Sprbtl) 2 spray NOSTRIL-B QID PRN PRN Reason: Nasal Congestion Last Admin: 12/24/21 09:25 Dose: 2 spray Documented By: DUANE Thiamine HCl (Thiamine Hcl 100 Mg Tablet) 100 mg PO DAILY [facility] Last Admin: 12/29/21 08:20 Dose: 100 mg Documented By: REE Tobramycin Sulfate (Tobramycin Sulfate 0.3% Pati Op 5 Ml Btl) 1 drop EYE-BOTH QID [facility] Last Admin: 12/29/21 08:20 Dose: 1 drop Documented By: REE Labs CBC & Chem 7: 12/29/21 06:25 12/29/21 06:08 Labs: Laboratory Results - last 24 hr 12/23/21 12/29/21 12/29/21 07:31 06:08 06:25 MCV 91.2 MCH 30.6 MCHC 33.6 RDW 15.3 Plt Count 150 L MPV 9.7 Absolute Nucleated RBC 0.000 Nucleated RBC % (auto) 0.0 Anion Gap 9 L Estim Creat Clear Calc 65.9 Estimated GFR > 60 Random Glucose 95 Calcium 10.4 H D Albumin Calcium (PTH Intact) 14.6 (H) 12/29/21 06:25 MCV MCH MCHC RDW Plt Count MPV Absolute Nucleated RBC Nucleated RBC % (auto) Anion Gap Estim Creat Clear Calc Estimated GFR Random Glucose Calcium Albumin 2.5 L Calcium (PTH Intact) Microbiology Microbiology Results: Microbiology 12/26/21 22:49 Blood Culture - Preliminary Blood - Venous No growth after 48 hours. 12/26/21 22:49 Blood Culture - Preliminary Blood - Venous No growth after 48 hours. Assessment and Plan (1) Hypokalemia: Status: Acute (2) Falls: Status: Acute (3) Hypercalcemia: Status: Acute Plan 71F presented with falls, found to have severe hypercalcemia, brief episode of afib with rvr in ED. metabolic encephalopathy Improved almost to baseline Secondary to hypercalcemia and medications Decreased dose of gabapentin to 200 t.i.d. treat underlying problems Secondary Hypercalcemia low PTH, normal vitamin-D questionable lesion on left breast on CTA chest, to do mammogram as outpatient corrected calcium level improved to 11.4 Received pamidronate continue normal saline with lasix follow BMP immunofixation showing no abnormalities pending PTHRh, 1, 25 dihydroxy vit D ( might take days before the results) nephro input appreciated Oncology input appreciated hypokalemia Low potassium of 3 Give replacement and follow BMP physical deconditioning PT evaluation epsiode of afib was brief, related to electrolyte imbalance, now in NSR Echo showed normal EF of 60 65% monitor for now moderate persistent asthma/copd albuterol as needed DM sugars normal, has lost weight, not on meds, will check a1c, possibly resolved opiate dependence suboxone mood disorder cymbalta buspar htn hold hctz, monitor, bp controlled dvt prophylaxis - lovenox DNR/DNI reason for continued hospitalization:ongoing treatment with iv meds for hypercalcemia, close monitoring Quality Stroke Does the patient have a stroke diagnosis?: No VTE Prior VTE?: No VTE Risk Level:: Medical - moderate - high VTE Device Contraindication: Treatment Not Indicated VTE Drug Contraindication: N/A - Med Ordered
[2021-12-29 12:00] VITALS: BP 120/58; PULSE 84; RESP 20; TEMP 36.9; O2SAT 96
--- NOTE | 2021-12-29 13:17 | PM.PNNEP ---
Subjective Subjective Date of Service: 12/29/21 Interval history: Events noted Mentation stable Physical Exam Vital Signs: Vital Signs: Last Vital Signs Temp 98.5 F 12/29/21 12:00 Pulse 84 12/29/21 12:00 Resp 20 12/29/21 12:00 BP 120/58 L 12/29/21 12:00 Pulse Ox 96 12/29/21 12:00 O2 Del Method 12/29/21 12:00 O2 Flow Rate 2 12/29/21 12:00 BMI result Body Mass Index 31.9 Const: General: alert and awake Neck: Neck: Yes supple and Yes no JVD Resp: Auscultation: no rales and no rhonchi Cardio: Jugular venous distension: no JVD Rate: not tachycardic Heart sounds: no rubs Skin: Rashes: no rashes Neuro: Gait exam (Neuro): not ataxic Motor exam (neuro): No Asterixis during motor activity present Objective Data Labs CBC & Chem 7: 12/29/21 06:25 12/29/21 06:08 Labs: Laboratory Results - last 24 hr 12/23/21 12/29/21 12/29/21 07:31 06:08 06:25 WBC 3.8 L RBC 2.97 L Hgb 9.1 L Hct 27.1 L MCV 91.2 MCH 30.6 MCHC 33.6 RDW 15.3 Plt Count 150 L MPV 9.7 Absolute Nucleated RBC 0.000 Nucleated RBC % (auto) 0.0 Sodium 134 L Potassium 3.0 L Chloride 98 Carbon Dioxide 30 H Anion Gap 9 L BUN 15 Creatinine 0.77 Estim Creat Clear Calc 65.9 Estimated GFR > 60 Random Glucose 95 Calcium 10.4 H D Albumin Calcium (PTH Intact) 14.6 (H) 12/29/21 06:25 WBC RBC Hgb Hct MCV MCH MCHC RDW Plt Count MPV Absolute Nucleated RBC Nucleated RBC % (auto) Sodium Potassium Chloride Carbon Dioxide Anion Gap BUN Creatinine Estim Creat Clear Calc Estimated GFR Random Glucose Calcium Albumin 2.5 L Calcium (PTH Intact) Microbiology Microbiology Results: Microbiology 12/26/21 22:49 Blood - Venous Blood Culture - Preliminary No growth after 48 hours. 12/26/21 22:49 Blood - Venous Blood Culture - Preliminary No growth after 48 hours. Procedures Date of Service Date of Service: 12/29/21 Assessment & Plan Assessment and plan (1) Hypercalcemia: Status: Acute Plan Severe hypercalemia with suppressed PTH ANEMIA Renal function is stable; No proteinuria Hypokalemia Suggest Avoid calcium supplements Check PTH related peptide and 1,25 [place] Vit D No monoclonal protein is urine DC Lasix agree with Pamidronate Oncology evaluation in progress Replace K orally Time Spent With Patient Time: Total time spent is greater than 50% in coordination of care (as documented) at patient's floor/unit and/or counseling patient: Progress Note: Quality Stroke Does the patient have a stroke diagnosis?: No
[2021-12-29 15:20] VITALS: BP 123/64; PULSE 90; RESP 20; TEMP 37.2; O2SAT 97
[2021-12-29] MEDS: Enoxaparin Sodium 40 MG/0.4 ML SYRINGE SUBCUT (16:11)
[2021-12-29 20:00] VITALS: BP 125/60; PULSE 85; RESP 18; TEMP 36.2; O2SAT 97
[2021-12-29] MEDS: Acetaminophen 325 MG TABLET 650 MG PO (21:19)
[2021-12-30] VITALS (8 sets, daily range): BP systolic 102–159; BP diastolic 57–68; PULSE 76–93; RESP 16–20; TEMP 36.1–37.3; O2SAT 93–100
[2021-12-30] MEDS: 0.9 % Sodium Chloride 1,000 ML 80 ML IVCONT (00:44)
[2021-12-30] MEDS: Acetaminophen 325 MG TABLET 650 MG PO (03:14)
[2021-12-30] MEDS: Omeprazole 20 MG CAPSULE.DR PO (06:44)
[2021-12-30 07:38] LABS: Anion Gap 9 (12-20); Blood Urea Nitrogen 11 mg/dL (9-16); Calcium 9.6 mg/dL (8.4-10.2); Carbon Dioxide 29 mmol/L (22-29); Chloride 99 mmol/L (96-108); Creatinine Clr Calc Pharmacy 72.4; Estimated Glomerular Filt Rate > 60; Glucose Random 97 mg/dL (60-115); Potassium 2.9 mmol/L (3.3-5.1); Sodium 134 mmol/L (135-145)
[2021-12-30] MEDS: Fluticasone Propionate 100 MCG BLST.W.DEV 2 PUFF INHALE ×2 (07:48→19:12)
[2021-12-30] MEDS: Potassium Chloride/H20 10 MEQ/100 ML PIGGYBACK 100 MEQ IV (10:36)
[2021-12-30] MEDS: polyethylene glycoL 3350 17 GM POWD.PACK PO ×2 (10:36→21:35)
[2021-12-30] MEDS: Gabapentin 100 MG CAPSULE 200 MG PO ×3 (10:40→21:33)
[2021-12-30] MEDS: Potassium Chloride Packet 20 MEQ PACKET 40 MEQ PO ×2 (10:40→14:55)
[2021-12-30] MEDS: Buprenorphine/Naloxone 2/0.5mg FILM 1 FILM SUBLINGUAL ×3 (10:40→21:35)
[2021-12-30] MEDS: busPIRone HCl 5 MG TABLET 15 MG PO ×2 (10:40→21:35)
[2021-12-30] MEDS: Tobramycin Sulfate 0.3% Sol Op 5 ML BTL 1 DROP EYE-BOTH ×4 (10:41→21:42)
[2021-12-30] MEDS: Furosemide 20 MG/2 ML VIAL IVPUSH (10:41)
[2021-12-30] MEDS: DULoxetine HCl 60 MG CAPSULE.DR PO ×2 (10:41→21:35)
[2021-12-30] MEDS: Pramipexole Di-HCL 0.125 MG TABLET PO ×2 (10:41→21:33)
[2021-12-30] MEDS: Thiamine HCL 100 MG TABLET PO (10:41)
[2021-12-30] MEDS: 0.9 % Sodium Chloride Flush 3 ML SYRINGE IVFLUSH ×3 (10:42→21:42)
--- NOTE | 2021-12-30 11:26 | HO.PM.IMPN ---
Subjective Subjective Date of Service: 12/30/21 Interval History: patient was seen and evaluated this morning Feels better and more comfortable No reported overnight events Corrected calcium improved to 9.6 No reported other overnight events. Systemic review: No fever, chills but reports generalized weakness No chest pain, palpitation No shortness of breath or coughing No abdominal pain, nausea or vomiting No urinary symptoms No any rash or wounds Physical Exam Vital Signs: Vital Signs: Last Vital Signs Temp 98.2 F 12/30/21 08:00 Pulse 84 12/30/21 08:00 Resp 19 12/30/21 08:00 BP 130/62 12/30/21 08:00 Pulse Ox 96 12/30/21 08:00 O2 Del Method 12/30/21 08:00 O2 Flow Rate 2 12/30/21 08:00 BMI result Body Mass Index 31.9 Const: Other: Constitutional : Alert, interactive, not in distress Neck : Normal inspection, Supple Cardiovascular : RRR, no JVP, no lower extremity edema Respiratory : fair bilateral air entry, no crackles, wheezes or rhonchi Gastrointestinal: soft, lax, Normal bowel sounds, Non tender Skin : Warm, Dry Neurological : Alert & oriented x3, No focal deficit , CN 2-12 within normal Objective Data Active Medications Acetaminophen (Acetaminophen 325 Mg Tablet) 650 mg PO Q6H PRN PRN Reason: Pain, Mild (Pain Scale 1-3) Last Admin: 12/30/21 03:14 Dose: 650 mg Documented By: BRANDAN Acetaminophen (Acetaminophen Supp 650 Mg Supp.Rect) 650 mg VT Q6H PRN PRN Reason: fever Last Admin: 12/26/21 23:00 Dose: 650 mg Documented By: MELINDA Albuterol Sulfate (Albuterol Sulfate 90 Mcg 8 Gm Inhaler) 2 puff INHALE Q6H PRN PRN Reason: shortness of breath or wheezing Buprenorphine/Naloxone (Buprenorphine/Naloxone 2/0.5mg Film) 1 film SUBLINGUAL TID [facility] Last Admin: 12/30/21 10:40 Dose: 1 film Documented By: REE Buspirone HCl (Buspirone Hcl 5 Mg Tablet) 15 mg PO BID [facility] Last Admin: 12/30/21 10:40 Dose: 15 mg Documented By: REE Duloxetine HCl (Duloxetine Hcl 60 Mg Capsule.) 60 mg PO BID [facility] Last Admin: 12/30/21 10:41 Dose: 60 mg Documented By: REE Enoxaparin Sodium (Enoxaparin Sodium 40 Mg/0.4 Ml Syringe) 40 mg SUBCUT Q24H [facility] Last Admin: 12/29/21 16:11 Dose: 40 mg Documented By: REE Fluticasone Propionate (Fluticasone Propionate 100 Mcg Blst.W.Dev) 2 puff INHALE RBID [facility] Last Admin: 12/30/21 07:48 Dose: 2 puff Documented By: STEPHANIE Furosemide (Furosemide 20 Mg/2 Ml Vial) 20 mg IVPUSH BID@0900,1800 [facility]; Protocol Last Admin: 12/30/21 10:41 Dose: 20 mg Documented By: REE Gabapentin (Gabapentin 100 Mg Capsule) 200 mg PO TID [facility] Last Admin: 12/30/21 10:40 Dose: 200 mg Documented By: REE Sodium Chloride (Ns) 1,000 mls @ 80 mls/hr IVCONT .[id number] [facility] Last Admin: 12/30/21 00:44 Dose: 80 mls/hr Documented By: BRANDAN Omeprazole (Omeprazole 20 Mg Capsule.) 20 mg PO DAILY@0630 [facility] Last Admin: 12/30/21 06:44 Dose: 20 mg Documented By: BRANDAN Ondansetron HCl (Ondansetron Hcl 4 Mg/2 Ml Vial) 4 mg IVPUSH Q6H PRN PRN Reason: Nausea and Vomiting Last Admin: 12/24/21 05:58 Dose: 4 mg Documented By: MARBELLA Pharmacy Consult (Consult Rx Perform Med Rec) 1 each MISCELLANE ONCE PRN PRN Reason: Consult order Polyethylene Glycol (Polyethylene Glycol 3350 17 Gm Powd.Pack) 17 gm PO BID [facility] Last Admin: 12/30/21 10:36 Dose: 17 gm Documented By: REE Potassium Chloride (Potassium Chloride Packet 20 Meq Packet) 40 meq PO Q4H [facility] Stop: 12/30/21 13:01 Last Admin: 12/30/21 10:40 Dose: 40 meq Documented By: REE Pramipexole Dihydrochloride (Pramipexole Di-Hcl 0.125 Mg Tablet) 0.125 mg PO BID [facility] Last Admin: 12/30/21 10:41 Dose: 0.125 mg Documented By: REE Sodium Chloride (0.9 % Sodium Chloride Flush 3 Ml Syringe) 3 ml IVFLUSH QSHIFT [facility] Last Admin: 12/30/21 10:42 Dose: 3 ml Documented By: REE Sodium Chloride (Sodium Chloride 0.65 % Nasal 44 Ml Sprbtl) 2 spray NOSTRIL-B QID PRN PRN Reason: Nasal Congestion Last Admin: 12/24/21 09:25 Dose: 2 spray Documented By: DUANE Thiamine HCl (Thiamine Hcl 100 Mg Tablet) 100 mg PO DAILY [facility] Last Admin: 12/30/21 10:41 Dose: 100 mg Documented By: REE Tobramycin Sulfate (Tobramycin Sulfate 0.3% Pati Op 5 Ml Btl) 1 drop EYE-BOTH QID [facility] Last Admin: 12/30/21 10:41 Dose: 1 drop Documented By: REE Labs CBC & Chem 7: 12/29/21 06:25 12/30/21 06:30 Labs: Laboratory Results - last 24 hr 12/30/21 06:30 Anion Gap 9 L Estim Creat Clear Calc 72.4 Estimated GFR > 60 Random Glucose 97 Calcium 9.6 D Assessment and Plan (1) Hypokalemia: Status: Acute (2) Falls: Status: Acute (3) Hypercalcemia: Status: Acute (4) Accident due to mechanical fall without injury: Status: Acute Plan 71F presented with falls, found to have severe hypercalcemia, brief episode of afib with rvr in ED. metabolic encephalopathy Improved to baseline Secondary to hypercalcemia and medications Decreased dose of gabapentin to 200 t.i.d. treat underlying problems Secondary Hypercalcemia low PTH, normal vitamin-D questionable lesion on left breast on CTA chest, to do mammogram as outpatient corrected calcium level improved to 9.6 Received pamidronate Discontinue normal saline with lasix follow BMP immunofixation showing no abnormalities pending PTHRh, 1, 25 dihydroxy vit D ( might take days before the results) nephro and Oncology input appreciated hypokalemia Low potassium of 3 Give replacement and follow BMP physical deconditioning PT evaluation epsiode of afib was brief, related to electrolyte imbalance, now in NSR Echo showed normal EF of 60 65% monitor for now moderate persistent asthma/copd albuterol as needed DM sugars normal, has lost weight, not on meds, will check a1c, possibly resolved opiate dependence suboxone mood disorder cymbalta buspar htn hold hctz, monitor, bp controlled dvt prophylaxis - lovenox DNR/DNI reason for continued hospitalization:ongoing treatment with iv meds for hypercalcemia, pending safe discharge plan to Quality Stroke Does the patient have a stroke diagnosis?: No VTE Prior VTE?: No VTE Risk Level:: Medical - moderate - high VTE Device Contraindication: Treatment Not Indicated VTE Drug Contraindication: N/A - Med Ordered
--- NOTE | 2021-12-30 12:12 | PM.PNNEP ---
Subjective Subjective Date of Service: 12/30/21 Interval history: Events noted No change in mentation Physical Exam Vital Signs: Vital Signs: Last Vital Signs Temp 98.8 F 12/30/21 12:00 Pulse 81 12/30/21 12:00 Resp 20 12/30/21 12:00 BP 102/62 12/30/21 12:00 Pulse Ox 98 12/30/21 12:00 O2 Del Method 12/30/21 12:00 O2 Flow Rate 2 12/30/21 12:00 BMI result Body Mass Index 31.9 Const: General: alert and awake Neck: Neck: Yes supple and Yes no JVD Resp: Auscultation: no rales and no rhonchi Cardio: Jugular venous distension: no JVD Rate: not tachycardic Heart sounds: no rubs Skin: Rashes: no rashes Neuro: Gait exam (Neuro): not ataxic Motor exam (neuro): No Asterixis during motor activity present Objective Data Labs CBC & Chem 7: 12/29/21 06:25 12/30/21 06:30 Labs: Laboratory Results - last 24 hr 12/30/21 06:30 Sodium 134 L Potassium 2.9 L Chloride 99 Carbon Dioxide 29 Anion Gap 9 L BUN 11 Creatinine 0.70 Estim Creat Clear Calc 72.4 Estimated GFR > 60 Random Glucose 97 Calcium 9.6 D Microbiology Microbiology Results: Microbiology 12/26/21 22:49 Blood - Venous Blood Culture - Preliminary No growth after 48 hours. 12/26/21 22:49 Blood - Venous Blood Culture - Preliminary No growth after 48 hours. Procedures Date of Service Date of Service: 12/30/21 Assessment & Plan Assessment and plan (1) Hypercalcemia: Status: Acute Plan Severe hypercalemia with suppressed PTH ANEMIA Renal function is stable; No proteinuria Hypokalemia Suggest Avoid calcium supplements Check PTH related peptide ( pending ) and 1,25 [place] Vit D No monoclonal protein is urine DC Lasix agree with Pamidronate Oncology evaluation in progress Replace K orally Time Spent With Patient Time: Total time spent is greater than 50% in coordination of care (as documented) at patient's floor/unit and/or counseling patient: Progress Note: Quality Stroke Does the patient have a stroke diagnosis?: No
[2021-12-30 13:30] LABS: Anion Gap 11 (12-20); Blood Urea Nitrogen 11 mg/dL (9-16); Calcium 9.7 mg/dL (8.4-10.2); Carbon Dioxide 27 mmol/L (22-29); Chloride 99 mmol/L (96-108); Creatinine Clr Calc Pharmacy 68.5; Estimated Glomerular Filt Rate > 60; Glucose Random 114 mg/dL (60-115); Potassium 3.4 mmol/L (3.3-5.1); Sodium 134 mmol/L (135-145)
[2021-12-30] MEDS: Enoxaparin Sodium 40 MG/0.4 ML SYRINGE SUBCUT (14:56)
[2021-12-31] VITALS (8 sets, daily range): BP systolic 99–133; BP diastolic 51–71; PULSE 84–89; RESP 16–18; TEMP 35.9–37.3; O2SAT 92–96
[2021-12-31] MEDS: Omeprazole 20 MG CAPSULE.DR PO (04:59)
[2021-12-31 05:26] LABS: Anion Gap 11 (12-20); Blood Urea Nitrogen 11 mg/dL (9-16); Calcium 9.5 mg/dL (8.4-10.2); Carbon Dioxide 27 mmol/L (22-29); Chloride 100 mmol/L (96-108); Creatinine Clr Calc Pharmacy 66.7; Estimated Glomerular Filt Rate > 60; Glucose Random 114 mg/dL (60-115); Potassium 3.7 mmol/L (3.3-5.1); Sodium 134 mmol/L (135-145)
[2021-12-31] MEDS: Fluticasone Propionate 100 MCG BLST.W.DEV 2 PUFF INHALE (07:43)
--- NOTE | 2021-12-31 09:36 | PM.PNNEP ---
Subjective Subjective Date of Service: 12/31/21 Interval history: Events noted No change in mentation Physical Exam Vital Signs: Vital Signs: Last Vital Signs Temp 98.1 F 12/31/21 07:33 Pulse 86 12/31/21 07:46 Resp 18 12/31/21 07:46 BP 119/51 L 12/31/21 07:33 Pulse Ox 93 12/31/21 07:33 O2 Del Method 12/31/21 07:33 O2 Flow Rate 2 12/31/21 07:33 BMI result Body Mass Index 31.9 Const: General: alert and awake Neck: Neck: Yes supple and Yes no JVD Resp: Auscultation: no rales and no rhonchi Cardio: Jugular venous distension: no JVD Rate: not tachycardic Heart sounds: no rubs Skin: Rashes: no rashes Neuro: Gait exam (Neuro): not ataxic Motor exam (neuro): No Asterixis during motor activity present Objective Data Labs CBC & Chem 7: 12/29/21 06:25 12/31/21 04:45 Labs: Laboratory Results - last 24 hr 12/30/21 12/31/21 12:56 04:45 Sodium 134 L 134 L Potassium 3.4 3.7 Chloride 99 100 Carbon Dioxide 27 27 Anion Gap 11 L 11 L BUN 11 11 Creatinine 0.74 0.76 Estim Creat Clear Calc 68.5 66.7 Estimated GFR > 60 > 60 Random Glucose 114 114 Calcium 9.7 9.5 Microbiology Microbiology Results: Microbiology 12/26/21 22:49 Blood - Venous Blood Culture - Preliminary No growth after 48 hours. 12/26/21 22:49 Blood - Venous Blood Culture - Preliminary No growth after 48 hours. Procedures Date of Service Date of Service: 12/31/21 Assessment & Plan Assessment and plan (1) Hypercalcemia: Status: Acute Plan Severe hypercalemia with suppressed PTH ANEMIA Renal function is stable; No proteinuria s/p Hypokalemia- corrected Suggest Avoid calcium supplements Check PTH related peptide ( pending ) and 1,25 OH Vit D No monoclonal protein is urine s/p Pamidronate Oncology evaluation in progress Replace K as needed Time Spent With Patient Time: Total time spent is greater than 50% in coordination of care (as documented) at patient's floor/unit and/or counseling patient: Progress Note: Quality Stroke Does the patient have a stroke diagnosis?: No
[2021-12-31] MEDS: Buprenorphine/Naloxone 2/0.5mg FILM 1 FILM SUBLINGUAL ×3 (09:43→21:17)
[2021-12-31] MEDS: polyethylene glycoL 3350 17 GM POWD.PACK PO ×2 (09:43→21:15)
[2021-12-31] MEDS: 0.9 % Sodium Chloride Flush 3 ML SYRINGE IVFLUSH ×2 (09:43→17:43)
[2021-12-31] MEDS: DULoxetine HCl 60 MG CAPSULE.DR PO ×2 (09:43→21:14)
[2021-12-31] MEDS: Gabapentin 100 MG CAPSULE 200 MG PO ×3 (09:43→21:12)
[2021-12-31] MEDS: busPIRone HCl 5 MG TABLET 15 MG PO ×2 (09:43→21:11)
[2021-12-31] MEDS: Pramipexole Di-HCL 0.125 MG TABLET PO ×2 (09:44→21:14)
[2021-12-31] MEDS: Thiamine HCL 100 MG TABLET PO (09:44)
[2021-12-31] MEDS: Acetaminophen 325 MG TABLET 650 MG PO (09:52)
[2021-12-31] MEDS: Tobramycin Sulfate 0.3% Sol Op 5 ML BTL 1 DROP EYE-BOTH ×3 (12:00→21:20)
--- NOTE | 2021-12-31 12:51 | P.PNIM_ITS ---
Subjective Subjective Date of Service: 12/31/21 Interval History: patient was seen and evaluated this morning Feels better and more comfortable No reported overnight events Corrected calcium improved to 9.4 No reported other overnight events. Systemic review: No fever, chills but reports generalized weakness No chest pain, palpitation No shortness of breath or coughing No abdominal pain, nausea or vomiting No urinary symptoms No any rash or wounds Physical Exam Vital Signs: Vital Signs: Last Vital Signs Temp 97.8 F 12/31/21 11:43 Pulse 84 12/31/21 11:43 Resp 16 12/31/21 11:43 BP 100/61 12/31/21 11:43 Pulse Ox 96 12/31/21 11:43 O2 Del Method 12/31/21 11:43 O2 Flow Rate 2 12/31/21 11:43 BMI result Body Mass Index 31.9 Const: Other: Constitutional : Alert, interactive, not in distress Neck : Normal inspection, Supple Cardiovascular : RRR, no JVP, no lower extremity edema Respiratory : fair bilateral air entry, no crackles, wheezes or rhonchi Gastrointestinal: soft, lax, Normal bowel sounds, Non tender Skin : Warm, Dry Neurological : Alert & oriented x3, No focal deficit , CN 2-12 within normal Objective Data Active Medications Acetaminophen (Acetaminophen 325 Mg Tablet) 650 mg PO Q6H PRN PRN Reason: Pain, Mild (Pain Scale 1-3) Last Admin: 12/31/21 09:52 Dose: 650 mg Documented By: OSMANI Acetaminophen (Acetaminophen Supp 650 Mg Supp.Rect) 650 mg MO Q6H PRN PRN Reason: fever Last Admin: 12/26/21 23:00 Dose: 650 mg Documented By: MELINDA Albuterol Sulfate (Albuterol Sulfate 90 Mcg 8 Gm Inhaler) 2 puff INHALE Q6H PRN PRN Reason: shortness of breath or wheezing Buprenorphine/Naloxone (Buprenorphine/Naloxone 2/0.5mg Film) 1 film SUBLINGUAL TID [facility] Last Admin: 12/31/21 09:43 Dose: 1 film Documented By: OSMANI Buspirone HCl (Buspirone Hcl 5 Mg Tablet) 15 mg PO BID [facility] Last Admin: 12/31/21 09:43 Dose: 15 mg Documented By: OSMANI Duloxetine HCl (Duloxetine Hcl 60 Mg Capsule.Dr) 60 mg PO BID [facility] Last Admin: 12/31/21 09:43 Dose: 60 mg Documented By: OSMANI Enoxaparin Sodium (Enoxaparin Sodium 40 Mg/0.4 Ml Syringe) 40 mg SUBCUT Q24H [facility] Last Admin: 12/30/21 14:56 Dose: 40 mg Documented By: TIGISTORRGisela Fluticasone Propionate (Fluticasone Propionate 100 Mcg Blst.W.Dev) 2 puff INHALE RBID [facility] Last Admin: 12/31/21 07:43 Dose: 2 puff Documented By: AMY Gabapentin (Gabapentin 100 Mg Capsule) 200 mg PO TID [facility] Last Admin: 12/31/21 09:43 Dose: 200 mg Documented By: OSMANI Omeprazole (Omeprazole 20 Mg Capsule.) 20 mg PO DAILY@0630 [facility] Last Admin: 12/31/21 04:59 Dose: 20 mg Documented By: MICHAEL Ondansetron HCl (Ondansetron Hcl 4 Mg/2 Ml Vial) 4 mg IVPUSH Q6H PRN PRN Reason: Nausea and Vomiting Last Admin: 12/24/21 05:58 Dose: 4 mg Documented By: MARBELLA Pharmacy Consult (Consult Rx Perform Med Rec) 1 each MISCELLANE ONCE PRN PRN Reason: Consult order Polyethylene Glycol (Polyethylene Glycol 3350 17 Gm Powd.Pack) 17 gm PO BID [facility] Last Admin: 12/31/21 09:43 Dose: 17 gm Documented By: OSMANI Pramipexole Dihydrochloride (Pramipexole Di-Hcl 0.125 Mg Tablet) 0.125 mg PO BID [facility] Last Admin: 12/31/21 09:44 Dose: 0.125 mg Documented By: OSMANI Sodium Chloride (0.9 % Sodium Chloride Flush 3 Ml Syringe) 3 ml IVFLUSH QSHIFT [facility] Last Admin: 12/31/21 09:43 Dose: 3 ml Documented By: OSMANI Sodium Chloride (Sodium Chloride 0.65 % Nasal 44 Ml Sprbtl) 2 spray NOSTRIL-B QID PRN PRN Reason: Nasal Congestion Last Admin: 12/24/21 09:25 Dose: 2 spray Documented By: DUANE Thiamine HCl (Thiamine Hcl 100 Mg Tablet) 100 mg PO DAILY [facility] Last Admin: 12/31/21 09:44 Dose: 100 mg Documented By: OSMANI Tobramycin Sulfate (Tobramycin Sulfate 0.3% Pati Op 5 Ml Btl) 1 drop EYE-BOTH QID [facility] Last Admin: 12/31/21 12:40 Dose: Not Given Documented By: OSMANI Non-Admin Reason: Previously Administered Labs CBC & Chem 7: 12/29/21 06:25 12/31/21 04:45 Labs: Laboratory Results - last 24 hr 12/30/21 12/31/21 12:56 04:45 Anion Gap 11 L 11 L Estim Creat Clear Calc 68.5 66.7 Estimated GFR > 60 > 60 Random Glucose 114 114 Calcium 9.7 9.5 Assessment and Plan (1) Hypokalemia: Status: Acute (2) Hypercalcemia: Status: Acute (3) Falls: Status: Acute Plan 71F presented with falls, found to have severe hypercalcemia, brief episode of afib with rvr in ED. metabolic encephalopathy Improved to baseline Secondary to hypercalcemia and medications Decreased dose of gabapentin to 200 t.i.d. treat underlying problems Secondary Hypercalcemia low PTH, normal vitamin-D questionable lesion on left breast on CTA chest, to do mammogram as outpatient corrected calcium level improved to 9.6 Received pamidronate Discontinue normal saline with lasix follow BMP immunofixation showing no abnormalities pending PTHRh, 1, 25 dihydroxy vit D ( might take days before the results) nephro and Oncology input appreciated hypokalemia Low potassium of 3 Give replacement and follow BMP physical deconditioning PT evaluation epsiode of afib was brief, related to electrolyte imbalance, now in NSR Echo showed normal EF of 60 65% monitor for now moderate persistent asthma/copd albuterol as needed DM sugars normal, has lost weight, not on meds, will check a1c, possibly resolved opiate dependence suboxone mood disorder cymbalta buspar htn hold hctz, monitor, bp controlled dvt prophylaxis - lovenox DNR/DNI reason for continued hospitalization:ongoing treatment with iv meds for hyperca lcemia, pending safe discharge plan to [facility] Quality Stroke Does the patient have a stroke diagnosis?: No VTE Prior VTE?: No VTE Risk Level:: Medical - moderate - high VTE Device Contraindication: Treatment Not Indicated VTE Drug Contraindication: N/A - Med Ordered
[2021-12-31 15:30] LABS: COVID-19 Test Negative (Negative); IDNOW Serial# 55D5AD1C
--- NOTE | 2021-12-31 16:17 | MHC.CM.PN ---
PLAN FOR PT TO GO TO [facility]. [facility] LIAISON, STEPH, EMAILED GABRIELLA TO T/W TO BE SIGNED BY PT SO THAT HER SUBOXONE TREATMENT COULD BE COORDINATED WITH [facility]. PT SIGNED GABRIELLA AND IT WAS FAXED BACK TO [facility] AT [phone] STEPH REPORTS SHE WILL NEED TIME TO COORDINATE THIS WITH [facility] BUT THEY SHOULD BE READY TO TAKE PT TOMORROW [facility] HAS ALREADY CONTACTED CM AND STEPH PROVIDING AUTH FOR BOTH STR AND BLS TRANSPORT
[2021-12-31] MEDS: Enoxaparin Sodium 40 MG/0.4 ML SYRINGE SUBCUT (17:43)
[2022-01-01] VITALS: BP 114/55; PULSE 94; RESP 18; TEMP 37.7; O2SAT 98
[2022-01-01] MEDS: 0.9 % Sodium Chloride Flush 3 ML SYRINGE IVFLUSH ×2 (01:03→09:56)
[2022-01-01 03:51] VITALS: BP 103/53; PULSE 83; RESP 18; TEMP 36.3; O2SAT 93
[2022-01-01] MEDS: Omeprazole 20 MG CAPSULE.DR PO (06:04)
[2022-01-01 07:27] VITALS: BP 109/60; PULSE 83; RESP 19; TEMP 36.7; O2SAT 95
[2022-01-01] MEDS: Fluticasone Propionate 100 MCG BLST.W.DEV 2 PUFF INHALE (07:35)
[2022-01-01 07:40] VITALS: PULSE 83; RESP 18; O2SAT 95
[2022-01-01] MEDS: Buprenorphine/Naloxone 2/0.5mg FILM 1 FILM SUBLINGUAL (09:56)
[2022-01-01] MEDS: polyethylene glycoL 3350 17 GM POWD.PACK PO (09:56)
[2022-01-01] MEDS: DULoxetine HCl 60 MG CAPSULE.DR PO (09:56)
[2022-01-01] MEDS: Pramipexole Di-HCL 0.125 MG TABLET PO (09:56)
[2022-01-01] MEDS: busPIRone HCl 5 MG TABLET 15 MG PO (09:56)
[2022-01-01] MEDS: Gabapentin 100 MG CAPSULE 200 MG PO (09:56)
[2022-01-01] MEDS: Thiamine HCL 100 MG TABLET PO (09:57)
[2022-01-01] MEDS: Acetaminophen 325 MG TABLET 650 MG PO (10:04)
[2022-01-01] MEDS: Tobramycin Sulfate 0.3% Sol Op 5 ML BTL 1 DROP EYE-BOTH (10:07)
--- NOTE | 2022-01-01 10:17 | MHC.CM.PN ---
PT TO TRANSFER TO [facility] AT 2 TODAY
[2022-01-01] MEDS: Lactulose 20 GM/30 ML SOLUTION PO (10:42)
--- NOTE | 2022-01-01 11:09 | MHC.CM.PN ---
pts hcp bernard her notified of dc [phone]
[2022-01-01 11:16] VITALS: BP 119/62; PULSE 82; RESP 19; TEMP 36.1; O2SAT 94
--- NOTE | 2022-01-01 11:34 | P.DS_ITS ---
DS: Providers Provider Date of Service: 01/01/22 Date of admission: 12/23/21 15:58 Primary care physician: Tray Miles MD Consults: 12/23/21 16:03 Consult to Nephrology Routine Consulting Provider: Omar Serna Reason for consultation: Hypercalcemia Has provider been notified: Yes 12/27/21 10:20 Consult to Hematology / Oncology Routine Consulting Provider: Tara Farris Reason for consultation: hypercalcemia, lt breast lesion for your kind eval and rec DS: Diagnosis Discharge Diagnosis (1) Hypokalemia: Status: Acute (2) Hypercalcemia: Status: Acute (3) Falls: Status: Acute DS: Summary Hospital Course Hospital Course: Admission note HPI 71 years old female came in from home for evaluation of fall.? Patient was just seen in the emergency department for mechanical fall secondary to lower extremities swelling and edema, patient was seen in the emergency department and evaluated case management for possible placement, patient was was sent home with home physical therapy and PT at home, patient fell this morning hitting her head, patient do not recall details of falling, patient is been vomiting in the emergency department.? Complaining of mild headache. ?In the emergency room patient became hypoxic to 88%; this corrected with supplemental O2.? CTA of the chest failed to demonstrate a PE.? Patient also developed atrial fibrillation with a rapid ventricular response; during multiple episodes of vomiting patient's heart rate went into the 30s and she subsequently converted back to normal sinus rhythm.? Multiple imaging including CT of the head CT abdomen pelvis and CTA chest failed to demonstrate any acute pathology.? Routine blood work demonstrated a calcium that corrects to 10.7.? She will be admitted for treatment of same Hospital course The patient was admitted to the hospital for evaluation of metabolic encephalopathy secondary to hypercalcemia and home medications. The patient was noted to calcium level of more than 14 at time of presentation believed to be secondary to possible cancer. Images of the chest, abdomen and pelvis did not show any clear masses but concerning left breast lesion that was evaluated by oncologist Dr. Aviles who recommended an outpatient mammogram to be done after discharge. Blood work was sent with immunofixation showing no abnormalities and pending PTHRh, 1, 25 dihydroxy vit D. The patient was treated with IV fluid, IV Lasix, calcitonin and pamidronate with good response as corrected calcium level improved to almost 9 with significant improvement of her mental status as gabapentin dose was decreased from 800 t.i.d. to 200 t.i.d. only. Noted to have hypokalemia that was replaced and corrected. Had a run of AFib with RVR at time of presentation in the emergency that was believed to be secondary to electrolyte imbalance. The patient was monitored on telemetry with no recurrence of the AFib incident. Discussed with the patient who opted not to get blood thinners as echo showed EF of 60-65%. The patient expected to stay less than 30 days at the nursing facility for physical rehab. Discontinue hydrochlorothiazide To repeat blood test as outpatient To follow-up with Oncology, Nephrology as outpatient. Follow-up on PTH related protein and 1, 25 vitamin-D 3 results Time Spent with Patient Time attestation: Total time spent providing and/or coordinating discharge services: Discharge coordination time: Greater than 30 minutes Quality: Safe Use of Opioids Does Pt have an Active Cancer Diagnosis on the Problem List?: No Quality: Stroke Does the patient have a stroke diagnosis?: No Physical Exam Vital Signs: Vital Signs: Last Vital Signs Temp 97.0 F 01/01/22 11:16 Pulse 82 01/01/22 11:16 Resp 19 01/01/22 11:16 BP 119/62 01/01/22 11:16 Pulse Ox 94 01/01/22 11:16 O2 Del Method 01/01/22 11:16 O2 Flow Rate 2 01/01/22 11:16 BMI result Body Mass Index 31.9 Const: Other: Constitutional : Alert, interactive, not in distress Neck : Normal inspection, Supple Cardiovascular : RRR, no JVP, no lower extremity edema Respiratory : fair bilateral air entry, no crackles, wheezes or rhonchi Gastrointestinal: soft, lax, Normal bowel sounds, Non tender Skin : Warm, Dry Neurological : Alert & oriented x3, No focal deficit , CN 2-12 within normal DS: Data Data Completed and Pending Labs on day of discharge: Laboratory Results - last 24 hr 12/31/21 15:00 COVID-19 (RANJIT) Negative COVID-19 Clin Com See Note Imaging CT scan - chest: Radiologist's impression: ITS Impressions Chest X-Ray 12/23/21 07:40 IMPRESSION: No evidence for acute disease in the chest. Cervical Spine CT 12/23/21 09:06 IMPRESSION: 1. Multilevel degenerative changes without significant change. No definitive acute abnormality. Fleischner guidelines were followed. Head CT 12/23/21 09:07 IMPRESSION: No acute intracranial pathology. No significant interval change. Abdomen/Pelvis CT 12/23/21 14:26 IMPRESSION: CT angiography chest: *CT angiography negative for pulmonary emboli. *No acute cardiopulmonary abnormalities identified. No evidence of pneumonia or active pulmonary edema. *Moderate diffuse aortic calcific atherosclerosis. *Partial visualization of dermal thickening of the left breast. Findings could represent chronic scarring or acute traumatic inflammatory changes. Alternatively, findings could represent cellulitis or possible inflammatory carcinoma. Consider further evaluation with dedicated mammography of the left breast as clinically indicated. *Partially healed subacute fracture of the lateral segment of the left 10th rib. This finding demonstrates evidence of interval progression of healing compared with 08/17/2021. CT abdomen and pelvis: *Moderate focal subcutaneous inflammatory changes along the left flank new compared with 08/17/2021. Mild subcutaneous reticulation adjacent to the right hip. Both findings may represent acute traumatic soft tissue inflammatory changes. *Partially healed, subacute fracture of the lateral segment of the left 10th rib with interval progression of healing compared with 08/17/2021. *Mild diffuse intrahepatic biliary duct dilatation and moderate diffuse prominence of the common bile duct. Findings are slightly increased in prominence compared with 08/17/2021. No cholelithiasis identified though CT has low sensitivity in the detection of cholelithiasis. As clinically indicated, consider further evaluation with right upper quadrant ultrasound. *Mild colonic diverticulosis. No evidence of acute diverticulitis. *Small hiatal hernia. Chest CTA 12/23/21 14:26 IMPRESSION: CT angiography chest: *CT angiography negative for pulmonary emboli. *No acute cardiopulmonary abnormalities identified. No evidence of pneumonia or active pulmonary edema. *Moderate diffuse aortic calcific atherosclerosis. *Partial visualization of dermal thickening of the left breast. Findings could represent chronic scarring or acute traumatic inflammatory changes. Alternatively, findings could represent cellulitis or possible inflammatory carcinoma. Consider further evaluation with dedicated mammography of the left breast as clinically indicated. *Partially healed subacute fracture of the lateral segment of the left 10th rib. This finding demonstrates evidence of interval progression of healing compared with 08/17/2021. CT abdomen and pelvis: *Moderate focal subcutaneous inflammatory changes along the left flank new compared with 08/17/2021. Mild subcutaneous reticulation adjacent to the right hip. Both findings may represent acute traumatic soft tissue inflammatory changes. *Partially healed, subacute fracture of the lateral segment of the left 10th rib with interval progression of healing compared with 08/17/2021. *Mild diffuse intrahepatic biliary duct dilatation and moderate diffuse prominence of the common bile duct. Findings are slightly increased in prominence compared with 08/17/2021. No cholelithiasis identified though CT has low sensitivity in the detection of cholelithiasis. As clinically indicated, consider further evaluation with right upper quadrant ultrasound. *Mild colonic diverticulosis. No evidence of acute diverticulitis. *Small hiatal hernia. Chest X-Ray 12/26/21 22:54 IMPRESSION: No acute intrathoracic disease. No evidence of pneumonia Discharge Plan Discharge Patient Disposition: [facility] Discharge Diagnosis: Hypercalcemia Hypokalemia Physical deconditioning Breast lesion Referrals: [facility] [Other] - 1 Week Tray Miles MD [Primary Care Provider] - 1 Week Discharge Medications: New buprenorphine-naloxone [Suboxone] 2-0.5 mg film 1 film sublingual TID Qty: 21 0RF polyethylene glycol 3350 17 gram Powder In Packet 17 g PO DAILY 30 Days Qty: 30 0RF Continued buspirone 15 mg tablet 15 mg PO BID duloxetine 60 mg capsule,delayed release(DR/EC) 60 mg PO BID prednisone 10 mg Tablet 10 mg PO DIRECTED Rx Instructions: use as directed for asthma per PCP thiamine HCl (vitamin B1) 100 mg Tablet 100 mg PO DAILY acetaminophen 500 mg Tablet 1,000 mg PO Q8H pantoprazole 40 mg Tablet,Delayed Release (Dr/Ec) 40 mg PO DAILY tobramycin [Tobrex] 0.3 % Drops 1 drp OPHTHALMIC (EYE) QID Rx Instructions: in each affected eye cholecalciferol (vitamin D3) 125 mcg (5,000 unit) Capsule 125 mcg PO DAILY [place] Nasal 0.65 % Aerosol,[place] 2 spray INTRANASAL QID PRN (Reason: Nasal Congestion) Cerovite Senior 0.4 mg-300 mcg- 250 mcg Tablet 1 tab PO DAILY Icy Hot 30-10 % Cream 1 appl TOPICAL TID PRN (Reason: Muscle Pain) albuterol sulfate 90 mcg/actuation HFA aerosol inhaler 2 puff inhalation Q6H PRN (Reason: shortness of breath or wheezing) fluticasone propionate [Flovent HFA] 110 mcg/actuation HFA aerosol inhaler 2 puff inhalation BID buprenorphine-naloxone 2-0.5 mg film 1 film sublingual TID pramipexole 0.125 mg tablet 0.125 mg PO BID Changed fexofenadine 180 mg Tablet 90 mg PO DAILY 30 Days Qty: 15 0RF gabapentin 800 mg tablet 400 mg PO TID 30 Days Qty: 45 0RF Discontinued triamterene-hydrochlorothiazid 37.5-25 mg Tablet 1 tab PO DAILY hydrochlorothiazide 25 mg Tablet 25 mg PO DAILY Discharge Orders: Discharge Order (Routine); Ordered 01/01/22 Ordered By: Satnam Perez Diet: advance to usual diet Activity on Discharge: As tolerated Stand Alone Forms: Patient Portal Discharge page Other Ambulatory Orders: Basic Metabolic Panel (Routine) Timeframe: [id number] Facility: [facility] - Location: Laboratory Ordered By: Satnam Perez MM diagnostic mammo unilat LT (Routine) Timeframe: 1 Week Facility: [facility] - Location: Mammography Ordered By: Satnam Perez Care Plan Goals: Read below Health Concerns: Read below Plan of Treatment: Read below Assessment: You were admitted to the hospital for evaluation of falls and abnormal blood work. Found to have significantly elevated calcium level with images of your chest concerning for possible lesion in the left breast. You were treated with IV fluid, Lasix, bisphosphonate and evaluated by insurance producer and oncologist. Your calcium level improved back to normal after the treatment. You will be discharged to short-term rehab facility to do physical therapy pending outpatient mammography and follow-up with Dr. Aviles from Oncology office. Discontinue hydrochlorothiazide To repeat blood test as outpatient To follow-up with Oncology, Nephrology as outpatient. Follow-up on PTH related protein and 1, 25 vitamin-D 3 results
[2022-01-01 22:38] LABS: Parathyroid Hormone Related Pr 12 pg/mL (11-20)
== END 2022-01-01 14:30 | disposition skilled nursing facility (03) | DRG 640 ==
LOC: HO.ED 15:29 → HO.EDOVER 16:10 → HO.IMC 12-24 16:41
PROVIDERS: Internal Medicine; Admitting Provider Hospitalist; Emergency Provider Emergency Medicine; PCP Internal Medicine Rheumatology; Visit Provider Student in an Organized Health Care Education/Training Program
DX: E83.52 Hypercalcemia (principal); G93.41 Metabolic encephalopathy; F11.20 Opioid dependence, uncomplicated; Z66 Do not resuscitate; I48.0 Paroxysmal atrial fibrillation; F32.A Depression, unspecified; N64.9 Disorder of breast, unspecified; E11.9 Type 2 diabetes mellitus without complications; J44.9 Chronic obstructive pulmonary disease, unspecified; E87.6 Hypokalemia; J45.40 Moderate persistent asthma, uncomplicated; R29.6 Repeated falls; Z91.81 History of falling; Z20.822 Contact with and (suspected) exposure to COVID-19; Z79.899 Other long term (current) drug therapy
CPT/HCPCS: 0241U; 36415; 70450; 71045; 71275; 72125; 74177; 80048; 80053; 80076; 81003; 82040; 82306; 82652; 82784; 82803; 83036; 83519; 83605; 83690; 83735; 83880; 83970; 84484; 85025; 85027; 85379; 86334; 87040; 87635; 93005; 93306; 94640; 96361; 96374; 96376; 97116; 97162; 97530; 99285; J1650; J1940; J2405; J2430; Q9957; Q9967

== ENCOUNTER 2022-01-28 01:50 | Emergency (ER) | payer OTHER, SELFPAY ==
[2022-01-28 02:02] VITALS: BP 154/84; PULSE 74; O2SAT 98
[2022-01-28 02:16] VITALS: BP 162/74; PULSE 75; RESP 24; TEMP 36.9; O2SAT 96; BMI 28.3
[2022-01-28 02:31] LABS: MANUAL DIFF FLAG NO
[2022-01-28 02:34] LABS: Basophils Percent Auto 0.2 % (0-2); Imm Gran Pct Auto 1.6 % (0.0-0.4); Mean Corpuscular Volume 87.8 fL (80.0-98.0); PLT CLUMP 1; Red Blood Count 2.62 X10*6/uL (4.20-5.50); SCAN SMEAR FLAG 1
[2022-01-28 02:35] LABS: Eosinophils Absolute Auto 0.1 X10*3/uL (0.0-0.4); Eosinophils Percent Auto 1.4 % (0-4); Hemoglobin 8.2 g/dl (12.0-16.0); Lymphocytes Absolute Auto 0.8 X10*3/uL (1.2-4.9); Lymphocytes Percent Auto 11.9 % (20-40); Mean Corpuscular HGB Conc 35.7 g/dl (31.0-35.0); Mean Corpuscular Hemoglobin 31.3 pg (27.0-33.0); Mean Platelet Volume 9.2 fL (9.4-12.3); Monocytes Absolute Auto 0.5 X10*3/uL (0.1-1.2); Neutrophils Percent Auto 77.9 % (45-73); Red Cell Distribution Width 14.7 % (11.0-16.0)
[2022-01-28 02:43] LABS: Platelet Count 190 X10*3/uL (160-400); White Blood Count 6.4 X10*3/uL (4.8-10.8)
[2022-01-28 02:52] LABS: COVID-19 Test Negative (Negative)
[2022-01-28 02:55] LABS: Alanine Aminotransferase 14 U/L (0-31); Albumin Level 3.8 g/dL (3.5-5.0); Alkaline Phosphatase 92 U/L (39-117); Anion Gap 13 (12-20); Aspartate Amino Transferase 18 U/L (5-31); Bilirubin Direct 0.6 mg/dL (0.0-0.5); Bilirubin Total 1.2 mg/dL (0.0-1.0); Blood Urea Nitrogen 8 mg/dL (9-16); Calcium 8.5 mg/dL (8.4-10.2); Carbon Dioxide 19 mmol/L (22-29); Chloride 101 mmol/L (96-108); Creatinine Clr Calc Pharmacy 75.9; Estimated Glomerular Filt Rate > 60; Glucose Random 122 mg/dL (60-115); Lipase 33 U/L (8-78); Potassium 3.1 mmol/L (3.3-5.1); Sodium 130 mmol/L (135-145); Total Protein 6.6 g/dL (6.5-8.0)
[2022-01-28 05:13] VITALS: BP 161/82; PULSE 78; RESP 15; O2SAT 100
[2022-01-28 07:12] LABS: Appearance Urine CLEAR; Color Urine YELLOW; Glucose Urine UA NEG (NEG); Leukocyte Esterase Urine NEG (NEG); Nitrite Urine NEG (NEG); Urine Blood NEG (NEG); Urine Ketones NEG (NEG); Urine Protein TRACE MG/DL (NEG-TRACE)
--- NOTE | 2022-01-28 07:44 | PC.NURSE ---
pt repeatedly asking for iv fluids. pt appears in no apparent distress, no evidence of vomiting or obvious nausea noted. provider aware. given warm blanket.
--- NOTE | 2022-01-28 08:33 | ECG_ITS ---
Test Reason : tachycardia Blood Pressure : / mmHG Vent. Rate : 075 BPM Atrial Rate : 075 BPM P-R Int : 152 ms QRS Dur : 088 ms QT Int : 408 ms P-R-T Axes : 075 013 018 degrees QTc Int : 455 ms Normal sinus rhythm Low voltage QRS Borderline ECG When compared with ECG of 24-DEC-2021 14:22, Vent. rate has decreased BY 38 BPM Referred By: Kelin Gilmore Electronically Signed By:Ryan Field
--- NOTE | 2022-01-28 08:48 | ED_ITS ---
HPI - Nausea/Vomiting/Diarrhea General Chief complaint: Nausea/Vomiting/Diarrhea Stated complaint: nvd Time Seen by Provider: 01/28/22 08:30 Source: patient Mode of arrival: EMS History of Present Illness HPI Narrative: 71-year-old female with history of left breast mass, depression, COPD, diabetes who presents via ambulance with complaints nausea, vomiting, diarrhea for couple of days and is noted to have been evaluated at [facility] yesterday for depression and diarrhea. Patient denies any blood in her hematemesis or diarrhea, denies any abdominal pain or fever, denies shortness of breath/chest pain /palpitations. Related Data Home Medications Medication Instructions Recorded Confirmed buspirone 15 mg tablet 15 mg PO BID 04/17/20 12/23/21 duloxetine 60 mg capsule,delayed 60 mg PO BID 04/17/20 12/23/21 release buprenorphine 2 mg-naloxone 0.5 mg 1 film sublingual TID 04/26/20 12/23/21 sublingual film pramipexole 0.125 mg tablet 0.125 mg PO BID 04/26/20 12/23/21 acetaminophen 500 mg tablet 1,000 mg PO Q8H 12/21/21 12/23/21 albuterol sulfate 90 mcg/actuation 2 puff inhalation Q6H PRN 12/21/21 12/23/21 aerosol inhaler shortness of breath or wheezing cholecalciferol (vitamin D3) 125 125 mcg PO DAILY 12/21/21 12/23/21 mcg (5,000 unit) capsule fluticasone propionate 110 2 puff inhalation BID 12/21/21 12/23/21 mcg/actuation HFA aerosol inhaler (Flovent HFA) methyl salicylate 30 %-menthol 10 1 appl topical TID PRN Muscle Pain 12/21/21 12/23/21 % topical cream (Icy Hot) ecezjiig-les-vbtlz acid 0.4 1 tab PO DAILY 12/21/21 12/23/21 mg-lycopene 300 mcg-lutein 250 mcg tablet (Cerovite Senior) pantoprazole 40 mg tablet,delayed 40 mg PO DAILY 12/21/21 12/23/21 release prednisone 10 mg tablet 10 mg PO DIRECTED 12/21/21 12/23/21 sodium chloride 0.65 % nasal spray 2 spray intranasal QID PRN Nasal 12/21/21 12/23/21 aerosol ([place] Nasal) Congestion thiamine HCl (vitamin B1) 100 mg 100 mg PO DAILY 12/21/21 12/23/21 tablet tobramycin 0.3 % eye drops (Tobrex) 1 drp ophthalmic (eye) QID 12/21/21 12/23/21 Previous Rx's Medication Instructions Recorded buprenorphine 2 mg-naloxone 0.5 mg 1 film sublingual TID #21 ea 12/31/21 sublingual film (Suboxone) buprenorphine 2 mg-naloxone 0.5 mg 1 film sublingual TID #22 ea 01/01/22 sublingual film (Suboxone) fexofenadine 180 mg tablet 90 mg PO DAILY 30 days #15 tabs 01/01/22 gabapentin 800 mg tablet 400 mg PO TID 30 days #45 tabs 01/01/22 polyethylene glycol 3350 17 gram 17 g PO DAILY 30 days #30 ea 01/01/22 oral powder packet Allergies Allergy/AdvReac Type Severity Reaction Status Date / Time No Known Allergies Allergy Verified 01/28/22 02:17 [No Known Allergies*] Review of Systems Review of Systems: Pertinent positives and negatives as stated in HPI and 10 point review of systems is otherwise negative. [facility] Past Medical History Source: nursing notes reviewed Medical History Anxiety Asthma-COPD overlap syndrome Depression Diabetes mellitus, type 2 GERD (gastroesophageal reflux disease) New onset atrial fibrillation Surgical History History of section History of shoulder surgery Family History Family History Father Cancer Mother No problems noted. Social History Social History Household Members: Family Housing: Unknown / Unable to assess Unable to assess alcohol history related to: Unable to respond Alcohol intake: former Patient Tobacco Use Status: Never used Tobacco Advance Directives: Yes Advance Directives on File: Yes Advance Directives Date on File: 12/24/21 service: No Physical Exam Vital Signs: Vital Signs: Last Vital Signs Temp 98.4 F 01/28/22 02:16 Pulse 78 01/28/22 05:13 Resp 15 01/28/22 05:13 BP 161/82 H 01/28/22 05:13 Pulse Ox 100 01/28/22 05:13 O2 Del Method 01/28/22 05:13 BMI result Body Mass Index 28.3 VITAL SIGNS: Reviewed. GENERAL: frail, chronically ill, in mild distress. HEAD: Normocephalic/atraumatic EYES: PERRLA, EOMI EARS: Ext canals without abnormality OROPHARYNX: no oral lesions noted, posterior pharynx clear, dry mucosa LUNGS: Normal breath sounds. No adventitious sounds or accessory muscle use. SpO2<100> CARDIOVASCULAR: Regular rate and rhythm without noted murmurs, no JVD or lower extremity edema. ABDOMEN: Soft, non-tender, non-distended with bowel sounds. MUSCULOSKELETAL: No tenderness, deformities, or effusions noted on gross inspection. EXTREMITIES: No cyanosis, clubbing or edema. SKIN: Inspection of the skin reveals no rashes NEUROLOGIC: Alert and oriented x 4. Strength and sensation to light touch were grossly intact x 4. Course Course Course Narrative: 71-year-old female with history and clinical presentation suggestive of possible depression and diarrhea related to the depression but will rule out the possibility of diabetic complications. Signed out to DR Corley [facility] - Nausea/Vomiting/Diarrhea Lab Data Result diagrams: 01/28/22 02:25 01/28/22 02:25 Labs: Lab Results 01/28/22 01/28/22 01/28/22 Range/Units 02:14 02:25 02:25 WBC 6.4 (4.8-10.8) X10*3/uL RBC 2.62 L (4.20-5.50) X10*6/uL Hgb 8.2 L (12.0-16.0) g/dl Hct 23.0 L (37.0-47.0) % MCV 87.8 (80.0-98.0) fL MCH 31.3 (27.0-33.0) pg MCHC 35.7 H (31.0-35.0) g/dl RDW 14.7 (11.0-16.0) % Plt Count 190 D (160-400) X10*3/uL MPV 9.2 L (9.4-12.3) fL Immature Gran % (Auto) 1.6 H (0.0-0.4) % Neut % (Auto) 77.9 H (45-73) % Lymph % (Auto) 11.9 L (20-40) % [place] % (Auto) 7.0 (2-11) % Eos % (Auto) 1.4 (0-4) % Baso % (Auto) 0.2 (0-2) % Lymph # (Auto) 0.8 L (1.2-4.9) X10*3/uL [place] # (Auto) 0.5 (0.1-1.2) X10*3/uL Eos # (Auto) 0.1 (0.0-0.4) X10*3/uL Baso # (Auto) 0.0 (0.0-0.2) X10*3/uL Abs Immat Gran (auto) 0.10 H (0.00-0.03) X10*3/uL Absolute Neuts (auto) 5.0 (2.0-8.3) x10*3/uL Absolute Nucleated RBC 0.000 (0.0-0.012) X10*3/uL Nucleated RBC % (auto) 0.0 (0.0-0.2) /100WBC Sodium 130 L (135-145) mmol/L Potassium 3.1 L (3.3-5.1) mmol/L Chloride 101 (96-108) mmol/L Carbon Dioxide 19 L (22-29) mmol/L Anion Gap 13 (12-20) BUN 8 L (9-16) mg/dL Creatinine 0.63 (0.5-1.4) mg/dL Estim Creat Clear Calc 75.9 Estimated GFR > 60 Random Glucose 122 H (60-115) mg/dL Calcium 8.5 D (8.4-10.2) mg/dL Total Bilirubin 1.2 H (0.0-1.0) mg/dL Direct Bilirubin 0.6 H (0.0-0.5) mg/dL AST 18 (5-31) U/L ALT 14 (0-31) U/L Alkaline Phosphatase 92 D (39-117) U/L Total Protein 6.6 D (6.5-8.0) g/dL Albumin 3.8 D (3.5-5.0) g/dL Lipase 33 (8-78) U/L Urine Color Urine Appearance Urine pH (5.0-8.0) Ur Specific [place] (1.005-1.025) Urine Protein (NEG-TRACE) MG/DL Urine Glucose (UA) (NEG) MG/DL Urine Ketones (NEG) MG/DL Urine Blood (NEG) Urine Nitrite (NEG) Ur Leukocyte Esterase (NEG) Acetone, Qual Negative (Negative) COVID-19 (RANJIT) Negative (Negative) COVID-19 Clin Com See Note 01/28/22 Range/Units 06:58 WBC (4.8-10.8) X10*3/uL RBC (4.20-5.50) X10*6/uL Hgb (12.0-16.0) g/dl Hct (37.0-47.0) % MCV (80.0-98.0) fL MCH (27.0-33.0) pg MCHC (31.0-35.0) g/dl RDW (11.0-16.0) % Plt Count (160-400) X10*3/uL MPV (9.4-12.3) fL Immature Gran % (Auto) (0.0-0.4) % Neut % (Auto) (45-73) % Lymph % (Auto) (20-40) % [place] % (Auto) (2-11) % Eos % (Auto) (0-4) % Baso % (Auto) (0-2) % Lymph # (Auto) (1.2-4.9) X10*3/uL [place] # (Auto) (0.1-1.2) X10*3/uL Eos # (Auto) (0.0-0.4) X10*3/uL Baso # (Auto) (0.0-0.2) X10*3/uL Abs Immat Gran (auto) (0.00-0.03) X10*3/uL Absolute Neuts (auto) (2.0-8.3) x10*3/uL Absolute Nucleated RBC (0.0-0.012) X10*3/uL Nucleated RBC % (auto) (0.0-0.2) /100WBC Sodium (135-145) mmol/L Potassium (3.3-5.1) mmol/L Chloride (96-108) mmol/L Carbon Dioxide (22-29) mmol/L Anion Gap (12-20) BUN (9-16) mg/dL Creatinine (0.5-1.4) mg/dL Estim Creat Clear Calc Estimated GFR Random Glucose (60-115) mg/dL Calcium (8.4-10.2) mg/dL Total Bilirubin (0.0-1.0) mg/dL Direct Bilirubin (0.0-0.5) mg/dL AST (5-31) U/L ALT (0-31) U/L Alkaline Phosphatase (39-117) U/L Total Protein (6.5-8.0) g/dL Albumin (3.5-5.0) g/dL Lipase (8-78) U/L Urine Color YELLOW Urine Appearance CLEAR Urine pH 7.0 (5.0-8.0) Ur Specific [place] 1.010 (1.005-1.025) Urine Protein TRACE (NEG-TRACE) MG/DL Urine Glucose (UA) NEG (NEG) MG/DL Urine Ketones NEG (NEG) MG/DL Urine Blood NEG (NEG) Urine Nitrite NEG (NEG) Ur Leukocyte Esterase NEG (NEG) Acetone, Qual (Negative) COVID-19 (RANJIT) (Negative) COVID-19 Clin Com ECG Data Attestation: I personally reviewed and interpreted this ECG as follows: Prior ECG tracings: available for review Interpretation: Normal sinus rhythm, HR- 75, no STEMI, SD /QRS / QTC are within normal limits. Discharge Plan Discharge Clinical Impression: Gastroenteritis, Breast mass, left, Depression Patient Disposition: Still a Patient Prescriptions: No Action buspirone 15 mg tablet 15 mg PO BID duloxetine 60 mg capsule,delayed release(DR/EC) 60 mg PO BID buprenorphine-naloxone [Suboxone] 2-0.5 mg film 1 film sublingual TID Qty: 21 0RF polyethylene glycol 3350 17 gram Powder In Packet 17 g PO DAILY 30 Days Qty: 30 0RF fexofenadine 180 mg Tablet 90 mg PO DAILY 30 Days Qty: 15 0RF gabapentin 800 mg tablet 400 mg PO TID 30 Days Qty: 45 0RF buprenorphine-naloxone [Suboxone] 2-0.5 mg film 1 film sublingual TID Qty: 22 0RF prednisone 10 mg Tablet 10 mg PO DIRECTED Rx Instructions: use as directed for asthma per PCP thiamine HCl (vitamin B1) 100 mg Tablet 100 mg PO DAILY acetaminophen 500 mg Tablet 1,000 mg PO Q8H pantoprazole 40 mg Tablet,Delayed Release (Dr/Ec) 40 mg PO DAILY tobramycin [Tobrex] 0.3 % Drops 1 drp OPHTHALMIC (EYE) QID Rx Instructions: in each affected eye cholecalciferol (vitamin D3) 125 mcg (5,000 unit) Capsule 125 mcg PO DAILY [place] Nasal 0.65 % Aerosol,[place] 2 spray INTRANASAL QID PRN (Reason: Nasal Congestion) Cerovite Senior 0.4 mg-300 mcg- 250 mcg Tablet 1 tab PO DAILY Icy Hot 30-10 % Cream 1 appl TOPICAL TID PRN (Reason: Muscle Pain) albuterol sulfate 90 mcg/actuation HFA aerosol inhaler 2 puff inhalation Q6H PRN (Reason: shortness of breath or wheezing) fluticasone propionate [Flovent HFA] 110 mcg/actuation HFA aerosol inhaler 2 puff inhalation BID buprenorphine-naloxone 2-0.5 mg film 1 film sublingual TID pramipexole 0.125 mg tablet 0.125 mg PO BID
[2022-01-28 08:58] LABS: Acetone, serum QL Negative (Negative)
[2022-01-28] MEDS: 0.9 % Sodium Chloride 1,000 ML 999 ML IV ×2 (08:58→23:24)
[2022-01-28] MEDS: Ondansetron ODT 4 MG TAB.RAPDIS TRANSLINGU (09:09)
--- NOTE | 2022-01-28 10:31 | PC.NURSE ---
This nurse presented the pt with discharge papers however, pt stated they do not want to go home and they want to kill themselves. When inquiring further, pt states that she wants to and cannot deal with being sick anymore and just wants a break from being sick . Pt thought process inconsistent throughout conversation. medical technologist microbiology and provider aware.
--- NOTE | 2022-01-28 13:12 | MHC.CARE ---
Pt denies current SI/HI. Pt stated she has been in chronic pain and doesn't want to live like this anymore. When asked to clarify Pt stated she is not actively suicidal though expressing her frustration related to her chronic pain. CARE Team asked Pt if was interested in psychiatric services which Pt denied. Pt stated she would like to be discharged home. CARE Team reviewed consult with Hawa Tillman NP CARE Team spoke with who reported they will can connect Pt with [facility].
[2022-01-28 13:40] VITALS: BP 161/82; PULSE 78; O2SAT 100
--- NOTE | 2022-01-28 14:42 | MHC.CM.PN ---
CM INFORMED BY CARE TEMPERATURE REGULATOR THAT THERE WAS CONCERN REGARDING THIS PT LIVING ALONE AND HAVING FEW SUPPORTS REFERRAL MADE TO [facility] TO DETERMINE IF SHE IS ELIGIBLE FOR HOME/MERCHANDISE FOR RESALE PURCHASING [employer] SERVICES
[2022-01-28 15:20] VITALS: BP 156/72; PULSE 72; RESP 16; TEMP 36.6; O2SAT 97
--- NOTE | 2022-01-28 16:02 | MHC.CM.ED ---
Addendum entered by Cassie Costa 01/28/22 22:38: FYI, Pastor Fitzpatrick has not been in patient's home and this information was from patient herself. When this CM spoke with Glenny Miller earlier in the shift, they did not express any concerns about pt living situation. CM to follow for d/c needs. Addendum entered by Cassie Costa 01/28/22 22:07: Pastor Fitzpatrick spoke with both Tammy NOVOA and CM, telling us that patient told him her home was filthy, with black stuff on floor, sheets that need to be cleaned and she did not want him to look in the bathroom. Pastor Fitzpatrick was worried about patient going home alone. Tammy will keep patient overnight in the ED for IV hydration and CM will contact Glenny MILLER in the morning when they open to determine the condition of the home. As per previous conversation with [facility], pt has EPITAXIAL REACTOR TECHNICIAN. Will arrange PT for patient and will have RN from [facility] evaluate patient. Addendum entered by Cassie Costa 01/28/22 21:40: Pastor Fitzpatrick here for transport. Tammy NOVOA reviewed labs prior to d/c. Ordered repeat labs pending d/c. Spoke with patient and Pastor Fitzpatrick. Addendum entered by Cassie Costa 01/28/22 19:19: Pastor Fitzpatrick will provide transportation home. Will be here at 2044. Is coming from [place]. Pt aware. Dr. Miles called from [facility] [employer] and requested ED H&P to be faxed to him @ [phone]. RN aware of d/c plan. Addendum entered by Cassie Costa 01/28/22 17:54: HCP Cedrick Marie is the patients dryerman/woman. Aracelis gave permission for CM to call her HCP/dryerman/woman to see if he can provide transportation for this patient home. CM spoke to HCP. He will call CM back regarding transportation. Addendum entered by Cassie Costa 01/28/22 17:31: Attempted to book transportation with [facility] at 1615, as did ED financial secretary. Per [facility], they are not contracted with [facility] [employer]. CM called [facility] again, they are on service. Will have money position officer nurse return call. Service did not know what transportation company [facility] is contracted with. Second call made to [facility]. Return call from ANTONIO Anthony. Unfortunately, he does not deal with transportation, and he told CM that [facility] transport is closed. Raj will contact on-call RN. RN aware that at this point, CM is unable to arrange transportation home for this patient. This patient is not appropriate to transport via [facility]. CM will continue to follow for d/c needs. Original Note: CM called [facility] Miller ([phone]). According to [facility], pt has EPITAXIAL REACTOR TECHNICIAN and supports. Glenny nurse will see patient cooper at home. They have PT services arranged for her. Pt needs transportation home. Pt states she takes an ambulance. RN notified. CM will follow for any further d/c needs.
[2022-01-28 21:49] LABS: Alanine Aminotransferase 20 U/L (0-31); Albumin Level 3.6 g/dL (3.5-5.0); Alkaline Phosphatase 99 U/L (39-117); Anion Gap 12 (12-20); Aspartate Amino Transferase 26 U/L (5-31); Bilirubin Total 1.2 mg/dL (0.0-1.0); Blood Urea Nitrogen 7 mg/dL (9-16); Calcium 8.4 mg/dL (8.4-10.2); Carbon Dioxide 20 mmol/L (22-29); Chloride 101 mmol/L (96-108); Creatinine Clr Calc Pharmacy 74.7; Estimated Glomerular Filt Rate > 60; Glucose Random 102 mg/dL (60-115); Potassium 3.3 mmol/L (3.3-5.1); Sodium 130 mmol/L (135-145); Total Protein 6.5 g/dL (6.5-8.0)
--- NOTE | 2022-01-28 23:26 | PC.NURSE ---
Medicated per Mar.
[2022-01-29] VITALS: BP 165/81; PULSE 89; RESP 16; TEMP 36.6; O2SAT 97
--- NOTE | 2022-01-29 00:48 | PC.NURSE ---
patient was assist with 1 asst and walker to bathroom ,patient voided large amount of urine .
[2022-01-29 01:57] VITALS: BP 140/67; PULSE 82; RESP 16; TEMP 37.7; O2SAT 98
[2022-01-29 04:00] VITALS: BP 158/70; PULSE 76; RESP 16; TEMP 36.1; O2SAT 98
--- NOTE | 2022-01-29 04:12 | PC.NURSE ---
PATIENT WAS ASSISTED TO THE BATHROOM WITH 1 ASST AND WALKER ,PATIENT HAD TWO LARGE BOWEL MOVEMENT ,DRANK 240 ML MILK ,ATE A FEW CRACKERS .
[2022-01-29 06:00] VITALS: BP 153/85; PULSE 79; RESP 16; TEMP 36.5; O2SAT 98
[2022-01-29 08:49] VITALS: BP 185/85; PULSE 82; RESP 16; TEMP 37.2; O2SAT 98
--- NOTE | 2022-01-29 09:07 | MHC.CM.ED ---
Addendum entered by Aniyah Vang 01/29/22 10:37: Inocencia ALVAREZ requesting repeat labs. Patient refusing at this time. Pastor Fitzpatrick is bedside to transport patient home. Ludivina at [place] aware. Original Note: Patient remains in ER. Received telephone call from Wilfrido in the pharmacy. He was attempted to get patient's medication list from [facility]. [facility] informed him they will be picking patient up from the ER around 930am and provide her with all of her medications. Patient, Jerrica MORALES and Inocencia ALVAREZ aware. Continue to monitor for d/c needs.
[2022-01-29 09:13] VITALS: BP 185/85; PULSE 82; O2SAT 98
--- NOTE | 2022-01-29 10:23 | PC.NURSE ---
pt refusing labs, union steward aware pt requesting dc
== END 2022-01-29 11:04 | disposition home or self-care (01) ==
PROVIDERS: Physician Assistant; Student in an Organized Health Care Education/Training Program; Emergency Provider Student in an Organized Health Care Education/Training Program
DX: K52.9 Noninfective gastroenteritis and colitis, unspecified (principal); N63.20 Unspecified lump in the left breast, unspecified quadrant; R11.2 Nausea with vomiting, unspecified; R26.89 Other abnormalities of gait and mobility; F33.1 Major depressive disorder, recurrent, moderate; Z20.822 Contact with and (suspected) exposure to COVID-19; Z79.899 Other long term (current) drug therapy
CPT/HCPCS: 36415; 80048; 80053; 80076; 81003; 82009; 83690; 85025; 87635; 93005; 96360; 96361; 97162; 99285

== ENCOUNTER 2022-02-04 11:02 | Outpatient (REF) | payer OTHER, MEDICAID, SELFPAY ==
--- NOTE | 2022-02-04 | PFT_ITS ---
The patient was unable to perform test secondary to not feeling well. Pulmonary function test was aborted. IMPRESSION: Aborted pulmonary function test. MD DON Fontenot/CORI / [id number]
== END 2022-02-04 11:03 | disposition home or self-care (01) ==
LOC: HO.RESP 11:02
PROVIDERS: PCP Internal Medicine; Visit Provider Hospitalist
DX: Z13.89 Encounter for screening for other disorder (principal)

== ENCOUNTER 2022-02-15 20:49 | Emergency (ER) | payer OTHER, MEDICAID, SELFPAY ==
[2022-02-15 21:16] VITALS: BP 186/99; PULSE 96; RESP 16; TEMP 36.8; O2SAT 96; BMI 27.1
[2022-02-15 21:23] VITALS: BP 166/99; PULSE 94; RESP 11; TEMP 37.1; O2SAT 98
[2022-02-15 21:45] VITALS: BP 166/99; PULSE 96; RESP 12; O2SAT 98
--- NOTE | 2022-02-15 21:46 | ECG_ITS ---
Test Reason : GENERAL MEDICAL Blood Pressure : / mmHG Vent. Rate : 107 BPM Atrial Rate : 107 BPM P-R Int : 150 ms QRS Dur : 080 ms QT Int : 356 ms P-R-T Axes : 079 038 053 degrees QTc Int : 475 ms Sinus tachycardia Low voltage QRS Borderline ECG When compared with ECG of 28-JAN-2022 08:49, No significant change was found Referred By: Josefa Us Electronically Signed By:RODRICK ELY MD
--- NOTE | 2022-02-15 21:46 | ED.ABDPAIN ---
HPI - Abdominal Pain General Chief Complaint: Abdominal Pain Stated Complaint: nausea vomiting x6days Time Seen by Provider: 02/15/22 21:12 Source: patient Mode of arrival: ambulatory Limitations: no limitations History of Present Illness HPI narrative: Patient comes to the emergency room complaining of 2 weeks vomiting. Patient states she has no chest pain or shortness of breath, no significant abdominal pain. Patient states that she is tired of vomiting so much. Patient is coming from [facility], patient called 911 herself. She denies any diarrhea. Related Data Home Medications Medication Instructions Recorded Confirmed buspirone 15 mg tablet 15 mg PO BID 04/17/20 01/29/22 duloxetine 60 mg capsule,delayed 60 mg PO BID 04/17/20 01/29/22 release pramipexole 0.125 mg tablet 0.125 mg PO BID 04/26/20 01/29/22 acetaminophen 500 mg tablet 1,000 mg PO Q8H 12/21/21 01/29/22 albuterol sulfate 90 mcg/actuation 2 puff inhalation Q6H PRN 12/21/21 01/29/22 aerosol inhaler shortness of breath or wheezing cholecalciferol (vitamin D3) 125 125 mcg PO DAILY 12/21/21 01/29/22 mcg (5,000 unit) capsule fluticasone propionate 110 2 puff inhalation BID 12/21/21 01/29/22 mcg/actuation HFA aerosol inhaler (Flovent HFA) methyl salicylate 30 %-menthol 10 1 appl topical TID PRN Muscle Pain 12/21/21 01/29/22 % topical cream (Icy Hot) iojgbtin-gtl-tycga acid 0.4 1 tab PO DAILY 12/21/21 01/29/22 mg-lycopene 300 mcg-lutein 250 mcg tablet (Cerovite Senior) pantoprazole 40 mg tablet,delayed 40 mg PO DAILY 12/21/21 01/29/22 release prednisone 10 mg tablet 10 mg PO DIRECTED 12/21/21 01/29/22 sodium chloride 0.65 % nasal spray 2 spray intranasal QID PRN Nasal 12/21/21 01/29/22 aerosol ([place] Nasal) Congestion thiamine HCl (vitamin B1) 100 mg 100 mg PO DAILY 12/21/21 01/29/22 tablet fexofenadine 180 mg tablet 180 mg PO DAILY 01/29/22 01/29/22 Previous Rx's Medication Instructions Recorded ondansetron 4 mg disintegrating 4 mg PO Q6H #14 tabs 01/28/22 tablet prochlorperazine maleate 10 mg 10 mg PO TID PRN nausea and 02/16/22 tablet (Compazine) vomiting #14 tabs Allergies Allergy/AdvReac Type Severity Reaction Status Date / Time No Known Allergies Allergy Verified 01/28/22 02:17 [No Known Allergies*] Review of Systems Review of Systems Constitutional : No Weight loss, No Fever, No Chills, No Night Sweats, No Fatigue, No Malaise ENT/Mouth : No Hearing loss, No Ear Pain, No Nasal Congestion, No Sinus Pain, No Hoarseness, No sore throat, No Rhinorrhea, No Swallowing Difficulty Eyes: No Eye Pain, No Swelling, No Redness, No Foreign Body, No Discharge, No Vision Changes Cardiovascular : No Chest Pain, No SOB, No Dyspnea on Exertion, No Orthopnea, No Edema, No Palpitations Respiratory : No Cough, No Sputum, No Wheezing, No Smoke Exposure, No Dyspnea Gastrointestinal : Complaining of nausea and vomiting, No Diarrhea, No Constipation, No abdominal Pain, No Hematochezia, No Melena Genitourinary : no irregular bleeding, No Dysuria, No Urinary Frequency, No Hematuria, No Urinary Incontinence, No Urgency, No Flank Pain, No Urinary Flow Changes, No Hesitancy Musculoskeletal : No joint pain, No Myalgias, No Joint Swelling Skin : No Skin Lesions, No rash Neuro : No Weakness, No Numbness, No Paresthesias, No Loss of Consciousness, No Dizziness, No Headache Psych : No Anxiety/Panic, No Depression, No SI/HI/AH/VH, No Social Issues, Heme/Lymph: No Bruising, No Bleeding,No Lymphadenopathy Endocrine : No Polyuria, No Polydipsia, No Temperature Intolerance [facility] Past Medical History Medical History Anxiety Asthma-COPD overlap syndrome Depression Diabetes mellitus, type 2 GERD (gastroesophageal reflux disease) New onset atrial fibrillation Surgical History History of section History of shoulder surgery Family History Family History Father Cancer Mother No problems noted. Social History Social History Household Members: Family Housing: Unknown / Unable to assess Unable to assess alcohol history related to: Unable to respond Alcohol intake: former Patient Tobacco Use Status: Never used Tobacco Advance Directives on File: Yes Advance Directives Date on File: 12/24/21 service: No Physical Exam ED Vital Signs: Vital Signs - 24 hr 02/15/22 21:16 02/15/22 21:23 02/15/22 21:45 Temperature 98.3 F 98.7 F Pulse Rate 96 94 96 Respiratory Rate 16 11 L 12 Blood Pressure 186/99 H 166/99 H 166/99 H Pulse Oximetry 96 98 98 Oxygen Delivery Method Room Air Room Air Room Air 02/15/22 22:25 Temperature Pulse Rate 110 H Respiratory Rate 13 Blood Pressure 139/93 H Pulse Oximetry 99 Oxygen Delivery Method Room Air BMI result Body Mass Index 27.1 Const Other: Appearance: Alert. Oriented X3. No acute distress. Eyes: Pupils equal, round and reactive to light. ENT: Pharynx normal. Neck: Normal inspection. Neck supple. No lymph nodes noted. No crepitus CVS: Normal heart rate and rhythm. Pulses normal. Normal S1 and S2 Respiratory: No respiratory distress. Breath sounds normal. No Wheezing. No rales Abdomen: Soft and nontender. No rigidity. No distention. no guarding, no rebound Skin: Skin warm and dry. Normal skin color. Normal skin turgor. Extremities: No lower extremity edema. No Lacerations. No Rash Neuro: Oriented X 3. No motor deficit. No sensory deficit. Moving all extremities. No slurred speech. CN 2 through 12 grossly intact Psych: calm, cooperative, teary Course Course Course Narrative: Since patient arrived to the emergency room, patient has not complaining of any abdominal pain, no vomiting. Patient given IV fluids and Compazine. MDM - Abdominal Pain Lab Data Result diagrams: 02/15/22 22:35 02/15/22 22:35 Labs: Lab Results 02/15/22 02/15/22 02/15/22 Range/Units 22:26 22:35 22:35 WBC 4.8 (4.8-10.8) X10*3/uL RBC 3.32 L D (4.20-5.50) X10*6/uL Hgb 10.6 L D (12.0-16.0) g/dl Hct 30.5 L D (37.0-47.0) % MCV 91.9 (80.0-98.0) fL MCH 31.9 (27.0-33.0) pg MCHC 34.8 (31.0-35.0) g/dl RDW 15.4 (11.0-16.0) % Plt Count 158 L (160-400) X10*3/uL MPV 8.5 L (9.4-12.3) fL Immature Gran % (Auto) 0.4 (0.0-0.4) % Neut % (Auto) 69.0 (45-73) % Lymph % (Auto) 22.1 (20-40) % [place] % (Auto) 5.6 (2-11) % Eos % (Auto) 2.7 (0-4) % Baso % (Auto) 0.2 (0-2) % Lymph # (Auto) 1.1 L (1.2-4.9) X10*3/uL [place] # (Auto) 0.3 (0.1-1.2) X10*3/uL Eos # (Auto) 0.1 (0.0-0.4) X10*3/uL Baso # (Auto) 0.0 (0.0-0.2) X10*3/uL Abs Immat Gran (auto) 0.02 (0.00-0.03) X10*3/uL Absolute Neuts (auto) 3.3 (2.0-8.3) x10*3/uL Absolute Nucleated RBC 0.000 (0.0-0.012) X10*3/uL Nucleated RBC % (auto) 0.0 (0.0-0.2) /100WBC PT (10.0-13.1) SEC INR (0.9-1.1) Sodium 132 L (135-145) mmol/L Potassium 4.2 D (3.3-5.1) mmol/L Chloride 99 (96-108) mmol/L Carbon Dioxide 24 (22-29) mmol/L Anion Gap 13 (12-20) BUN 12 D (9-16) mg/dL Creatinine 0.68 (0.5-1.4) mg/dL Estim Creat Clear Calc 68.9 Estimated GFR > 60 Random Glucose 124 H (60-115) mg/dL Calcium 8.4 (8.4-10.2) mg/dL Magnesium 2.0 (1.6-2.6) mg/dL Total Bilirubin 0.8 (0.0-1.0) mg/dL Direct Bilirubin 0.3 (0.0-0.5) mg/dL AST 16 (5-31) U/L ALT 12 (0-31) U/L Alkaline Phosphatase 81 (39-117) U/L Troponin I High Sens (<3.5-17.0) ng/L Total Protein 6.2 L (6.5-8.0) g/dL Albumin 3.5 (3.5-5.0) g/dL Lipase 10 (8-78) U/L Urine Color Urine Appearance Urine pH (5.0-8.0) Ur Specific [place] (1.005-1.025) Urine Protein (NEG-TRACE) MG/DL Urine Glucose (UA) (NEG) MG/DL Urine Ketones (NEG) MG/DL Urine Blood (NEG) Urine Nitrite (NEG) Ur Leukocyte Esterase (NEG) COVID-19 (RANJIT) Negative (Negative) COVID-19 Clin Com See Note 02/15/22 02/15/22 02/16/22 Range/Units 22:35 22:35 00:36 WBC (4.8-10.8) X10*3/uL RBC (4.20-5.50) X10*6/uL Hgb (12.0-16.0) g/dl Hct (37.0-47.0) % MCV (80.0-98.0) fL MCH (27.0-33.0) pg MCHC (31.0-35.0) g/dl RDW (11.0-16.0) % Plt Count (160-400) X10*3/uL MPV (9.4-12.3) fL Immature Gran % (Auto) (0.0-0.4) % Neut % (Auto) (45-73) % Lymph % (Auto) (20-40) % [place] % (Auto) (2-11) % Eos % (Auto) (0-4) % Baso % (Auto) (0-2) % Lymph # (Auto) (1.2-4.9) X10*3/uL [place] # (Auto) (0.1-1.2) X10*3/uL Eos # (Auto) (0.0-0.4) X10*3/uL Baso # (Auto) (0.0-0.2) X10*3/uL Abs Immat Gran (auto) (0.00-0.03) X10*3/uL Absolute Neuts (auto) (2.0-8.3) x10*3/uL Absolute Nucleated RBC (0.0-0.012) X10*3/uL Nucleated RBC % (auto) (0.0-0.2) /100WBC PT 11.4 (10.0-13.1) SEC INR 1.0 (0.9-1.1) Sodium (135-145) mmol/L Potassium (3.3-5.1) mmol/L Chloride (96-108) mmol/L Carbon Dioxide (22-29) mmol/L Anion Gap (12-20) BUN (9-16) mg/dL Creatinine (0.5-1.4) mg/dL Estim Creat Clear Calc Estimated GFR Random Glucose (60-115) mg/dL Calcium (8.4-10.2) mg/dL Magnesium (1.6-2.6) mg/dL Total Bilirubin (0.0-1.0) mg/dL Direct Bilirubin (0.0-0.5) mg/dL AST (5-31) U/L ALT (0-31) U/L Alkaline Phosphatase (39-117) U/L Troponin I High Sens < 3.5 D (<3.5-17.0) ng/L Total Protein (6.5-8.0) g/dL Albumin (3.5-5.0) g/dL Lipase (8-78) U/L Urine Color YELLOW Urine Appearance CLEAR Urine pH 7.0 (5.0-8.0) Ur Specific [place] 1.010 (1.005-1.025) Urine Protein NEG (NEG-TRACE) MG/DL Urine Glucose (UA) NEG (NEG) MG/DL Urine Ketones NEG (NEG) MG/DL Urine Blood NEG (NEG) Urine Nitrite NEG (NEG) Ur Leukocyte Esterase NEG (NEG) COVID-19 (RANJIT) (Negative) COVID-19 Clin Com Discharge Plan Discharge Clinical Impression: Nausea & vomiting Patient Disposition: Home, Self-Care Instructions: Acute Nausea and Vomiting (ED) Additional Instructions: Please follow-up with your primary care physician tomorrow. If you have any worsening or new symptoms, please return to the emergency room or call 911 Prescriptions: New prochlorperazine maleate [Compazine] 10 mg tablet 10 mg PO TID PRN (Reason: nausea and vomiting) Qty: 14 0RF No [facility] buspirone 15 mg tablet 15 mg PO BID duloxetine 60 mg capsule,delayed release(DR/EC) 60 mg PO BID prednisone 10 mg Tablet 10 mg PO DIRECTED Rx Instructions: use as directed for asthma per PCP thiamine HCl (vitamin B1) 100 mg Tablet 100 mg PO DAILY acetaminophen 500 mg Tablet 1,000 mg PO Q8H pantoprazole 40 mg Tablet,Delayed Release (Dr/Ec) 40 mg PO DAILY cholecalciferol (vitamin D3) 125 mcg (5,000 unit) Capsule [address]ILY [place] Nasal 0.65 % Aerosol,[place] 2 spray INTRANASAL QID PRN (Reason: Nasal Congestion) Cerovite Senior 0.4 mg-300 mcg- 250 mcg Tablet 1 tab PO DAILY Icy Hot 30-10 % Cream 1 appl TOPICAL TID PRN (Reason: Muscle Pain) albuterol sulfate 90 mcg/actuation HFA aerosol inhaler 2 puff inhalation Q6H PRN (Reason: shortness of breath or wheezing) fluticasone propionate [Flovent HFA] 110 mcg/actuation HFA aerosol inhaler 2 puff inhalation BID ondansetron 4 mg tablet,disintegrating 4 mg PO Q6H Qty: 14 0RF fexofenadine 180 mg tablet 180 mg PO DAILY pramipexole 0.125 mg tablet 0.125 mg PO BID
[2022-02-15] MEDS: 0.9 % Sodium Chloride 1,000 ML 999 ML IVCONT (22:19)
[2022-02-15] MEDS: Prochlorperazine Edisylate 10 MG/2 ML VIAL IVPUSH (22:19)
[2022-02-15 22:25] VITALS: BP 139/93; PULSE 110; RESP 13; O2SAT 99
[2022-02-15 22:42] LABS: MANUAL DIFF FLAG NO
[2022-02-15 22:43] LABS: Basophils Percent Auto 0.2 % (0-2); Eosinophils Absolute Auto 0.1 X10*3/uL (0.0-0.4); Eosinophils Percent Auto 2.7 % (0-4); Hematocrit 30.5 % (37.0-47.0); Hemoglobin 10.6 g/dl (12.0-16.0); Imm Gran Abs Auto 0.02 X10*3/uL (0.00-0.03); Imm Gran Pct Auto 0.4 % (0.0-0.4); Lymphocytes Absolute Auto 1.1 X10*3/uL (1.2-4.9); Lymphocytes Percent Auto 22.1 % (20-40); Mean Corpuscular HGB Conc 34.8 g/dl (31.0-35.0); Mean Corpuscular Hemoglobin 31.9 pg (27.0-33.0); Mean Corpuscular Volume 91.9 fL (80.0-98.0); Mean Platelet Volume 8.5 fL (9.4-12.3); Monocytes Absolute Auto 0.3 X10*3/uL (0.1-1.2); Monocytes Percent Auto 5.6 % (2-11); Neutrophils Absolute Auto 3.3 x10*3/uL (2.0-8.3); Platelet Count 158 X10*3/uL (160-400); Red Blood Count 3.32 X10*6/uL (4.20-5.50); Red Cell Distribution Width 15.4 % (11.0-16.0); White Blood Count 4.8 X10*3/uL (4.8-10.8)
--- NOTE | 2022-02-15 22:47 | PC.NURSE ---
PATIENT WAS INC ,ALSO VOMITED ,CARE GIVEN AND PATIENT CHANGE INTO HOSPITAL ATTIRE .
[2022-02-15 22:52] LABS: Prothrombin Time 11.4 SEC (10.0-13.1)
[2022-02-15 23:08] LABS: Alanine Aminotransferase 12 U/L (0-31); Albumin Level 3.5 g/dL (3.5-5.0); Alkaline Phosphatase 81 U/L (39-117); Anion Gap 13 (12-20); Aspartate Amino Transferase 16 U/L (5-31); Bilirubin Direct 0.3 mg/dL (0.0-0.5); Bilirubin Total 0.8 mg/dL (0.0-1.0); Blood Urea Nitrogen 12 mg/dL (9-16); Calcium 8.4 mg/dL (8.4-10.2); Carbon Dioxide 24 mmol/L (22-29); Chloride 99 mmol/L (96-108); Creatinine Clr Calc Pharmacy 68.9; Estimated Glomerular Filt Rate > 60; Glucose Random 124 mg/dL (60-115); Lipase 10 U/L (8-78); Potassium 4.2 mmol/L (3.3-5.1); Sodium 132 mmol/L (135-145); Total Protein 6.2 g/dL (6.5-8.0)
[2022-02-15 23:10] LABS: Troponin-I High Sensitivity < 3.5 ng/L (<3.5-17.0)
[2022-02-15 23:17] LABS: COVID-19 Test Negative (Negative)
--- NOTE | 2022-02-16 00:19 | PC.NURSE ---
pt sleeping comfortably on stretcher. no complaints. no respiratory distress. call brush within reach. will continue to monitor
[2022-02-16 00:42] LABS: Appearance Urine CLEAR; Color Urine YELLOW; Glucose Urine UA NEG (NEG); Leukocyte Esterase Urine NEG (NEG); Nitrite Urine NEG (NEG); Urine Blood NEG (NEG); Urine Ketones NEG (NEG); Urine Protein NEG (NEG-TRACE)
[2022-02-16 02:21] VITALS: BP 102/68; PULSE 100; RESP 16; O2SAT 95
--- NOTE | 2022-02-16 03:03 | PC.NURSE ---
This US/Pct called [facility] at 0153 spoke to jennifer for a BLS transfer back to [place] Unable to pass and EMS Booked for 8Am.Rn and Charge aware
[2022-02-16 05:26] VITALS: BP 158/78; PULSE 105; RESP 16; O2SAT 95
[2022-02-16 07:38] VITALS: BP 128/78; PULSE 85; RESP 16; TEMP 36.7; O2SAT 98
== END 2022-02-16 09:13 | disposition home or self-care (01) ==
PROVIDERS: Emergency Provider Emergency Medicine
DX: R10.9 Unspecified abdominal pain (principal); R11.2 Nausea with vomiting, unspecified; Z20.822 Contact with and (suspected) exposure to COVID-19; Z79.899 Other long term (current) drug therapy
CPT/HCPCS: 36415; 80048; 80076; 81003; 83690; 83735; 84484; 85025; 85610; 87635; 93005; 96361; 96374; 99284

== ENCOUNTER 2022-03-19 10:22 | Inpatient (IN) | payer OTHER, MEDICAID, SELFPAY ==
--- NOTE | ~2022-03-19 | CT_ITS ---
EXAMINATION: CT HEAD WITHOUT CONTRAST CLINICAL INFORMATION: Mental status changes. COMPARISON: Noncontrast CT head 12/23/2021, 12/20/2021 TECHNIQUE: Contiguous axial imaging was performed from the skull base to vertex without intravenous administration of contrast. Additional 2-D coronal and sagittal reformatted images are generated on the CT workstation and uploaded to PACS. This CT examination was performed using dose optimization techniques as appropriate, variously including the following: *Automated exposure control *Adjustment of mA and/or kV according to patient size (this includes techniques or standardized protocols for targeted exams where dose is matched to indication/reason for exam; i.e. extremities or head) *Use of iterative reconstruction technique DLP: 711 mGy-cm FINDINGS: There is no intracranial hemorrhage, hematoma, or extra-axial fluid collection. There are mild atrophic changes with prominence of the cortical sulci and fissures and cisterns similar to prior studies. The ventricles are normal in size. No interval hydrocephalus. The garcia-white matter differentiation appears well preserved . Mild periventricular white matter gliosis and also involving anterior left external capsule is similar to prior studies. There is no visible acute territorial infarct or mass lesion. The calvarium appears intact. There is no pneumocephalus or orbital emphysema. The visualized sinuses and middle ears and mastoid air cells show no significant mucosal thickening. There are no air-fluid levels. CT/CT head/brain wo IV con IMPRESSION: No acute intracranial abnormality.
--- NOTE | ~2022-03-19 | US_ITS ---
EXAMINATION: US DIAGNOSTIC ULTRASOUND BREAST, LEFT CLINICAL INFORMATION: In-patient with abnormal lab. Question skin thickening left breast on CT chest. COMPARISON: CT chest 12/23/2021. No prior mammography at [facility]. TECHNIQUE: Ultrasound of the left breast is performed by cost and risk analysis manager interrogating all 4 quadrants. Grayscale imaging and color Doppler are performed. FINDINGS: There is no skin thickening or edema tracking in the soft tissue planes. No hyperemia. No solid mass or architectural abnormality. Two small cysts are noted under 1 cm upper quadrant. US/US breast LT complete IMPRESSION: -No skin thickening or edema tracking in soft tissue planes. -No solid mass or architectural abnormality on ultrasound. ASSESSMENT: BI-RADS 3: Probably Benign RECOMMENDATION: -Bilateral diagnostic mammography.
--- NOTE | ~2022-03-19 | XR_ITS ---
EXAMINATION: XR SKELETAL SURVEY CLINICAL INFORMATION: Hypercalcemia. Evaluate for osteoclastic lesion. COMPARISON: Most recent chest radiograph dated 03/19/2022. TECHNIQUE: Lateral view of the skull. Lateral views of the cervical, thoracic, and lumbar spine. AP view of the chest, abdomen, and pelvis. AP views of the upper and lower extremities. FINDINGS: No concerning lytic or blastic osseous lesion. No acute fracture or dislocation. Chronic deformity of the left humeral head with post-surgical change and severe secondary osteoarthritis. Levocurvature of the lumbar spine. Degenerative disc disease throughout the thoracolumbar spine. No airspace consolidation. No pleural effusion or pneumothorax. Unremarkable cardiomediastinal silhouette. Moderate air and stool throughout the colon. XR/XR bone survey IMPRESSION: No concerning lytic or blastic osseous lesion. Moderate stool burden.
--- NOTE | ~2022-03-19 | XR_ITS ---
EXAMINATION: XR CHEST CLINICAL INFORMATION: Cough, mental status changes. COMPARISON: Chest radiographs 12/26/2021, 12/23/2021, CTA chest 1222. TECHNIQUE: Portable upright AP view of the chest was obtained. FINDINGS: There is mild coarsening bronchiolar markings similar to prior exam 12/26/2021. There is no interval hyperinflation, airspace consolidation, or effusion. Heart size normal. Vascularity stable. The hilar and mediastinal contours are unremarkable. No acute bony abnormality. Prominent degenerative changes left shoulder and overlying orthopedic screw are again noted. XR/XR chest 1V IMPRESSION: -Coarsening bronchiolar markings similar to prior exam. -No lobar or segmental airspace consolidation or effusion.
[2022-03-19 10:30] VITALS: BP 127/79; BP 130/80; PULSE 98; RESP 16; O2SAT 97; O2SAT 99; BMI 25.5
--- NOTE | 2022-03-19 10:36 | ECG_ITS ---
Test Reason : weakness Blood Pressure : / mmHG Vent. Rate : 099 BPM Atrial Rate : 099 BPM P-R Int : 160 ms QRS Dur : 088 ms QT Int : 318 ms P-R-T Axes : 077 037 072 degrees QTc Int : 408 ms Normal sinus rhythm Nonspecific T wave abnormality Abnormal ECG When compared with ECG of 15-FEB-2022 22:10, T wave inversion now evident in Anterior leads QT has shortened Referred By: Francisco Javier Moreau Electronically Signed By:SANG CISSE
--- NOTE | 2022-03-19 10:47 | ED.GENADULT ---
HPI - General Adult General Chief complaint: Weakness Stated complaint: LETHARGY Time Seen by Provider: 03/19/22 10:31 Source: EMS Mode of arrival: EMS Limitations: altered mental status History of Present Illness HPI narrative: This is a 71 years old female brought in by ambulance because of weakness lethargy mental status changes. The patient has history of COPD, hypercalcemia, metabolic encephalopathy in the past. He was admitted in December 2021 for altered mental status as well. She denies any fever chills vomiting diarrhea. She is very poor historian Onset (ago): day(s) (3) Radiation: non-radiation Pain Consistency: constant Relieving factors: none Related Data Home Medications Medication Instructions Recorded Confirmed buspirone 15 mg tablet 15 mg PO BID 04/17/20 03/19/22 duloxetine 60 mg capsule,delayed 60 mg PO BID 04/17/20 03/19/22 release pramipexole 0.125 mg tablet 0.125 mg PO BID 04/26/20 03/19/22 acetaminophen 500 mg tablet 1,000 mg PO Q8H 12/21/21 01/29/22 albuterol sulfate 90 mcg/actuation 2 puff inhalation Q6H PRN 12/21/21 03/19/22 aerosol inhaler shortness of breath or wheezing cholecalciferol (vitamin D3) 125 125 mcg PO DAILY 12/21/21 03/19/22 mcg (5,000 unit) capsule fluticasone propionate 110 2 puff inhalation BID 12/21/21 03/19/22 mcg/actuation HFA aerosol inhaler (Flovent HFA) methyl salicylate 30 %-menthol 10 1 appl topical TID PRN Muscle Pain 12/21/21 03/19/22 % topical cream (Icy Hot) pasicvyw-jwp-qtobj acid 0.4 1 tab PO DAILY 12/21/21 03/19/22 mg-lycopene 300 mcg-lutein 250 mcg tablet (Cerovite Senior) pantoprazole 40 mg tablet,delayed 40 mg PO DAILY 12/21/21 03/19/22 release sodium chloride 0.65 % nasal spray 2 spray intranasal QID PRN Nasal 12/21/21 03/19/22 aerosol ([place] Nasal) Congestion thiamine HCl (vitamin B1) 100 mg 100 mg PO DAILY 12/21/21 03/19/22 tablet aripiprazole 2 mg tablet 4 mg PO DAILY 03/19/22 03/19/22 ferrous sulfate 325 mg (65 mg 1 tab PO DAILY 03/19/22 03/19/22 iron) tablet fexofenadine 60 mg tablet 60 mg PO DAILY 03/19/22 03/19/22 loperamide 2 mg tablet 2 mg PO Q6H PRN Loose Stool 03/19/22 03/19/22 promethazine 25 mg tablet 25 mg PO QID PRN Nausea And 03/19/22 03/19/22 Vomiting Allergies Allergy/AdvReac Type Severity Reaction Status Date / Time No Known Allergies Allergy Verified 01/28/22 02:17 [No Known Allergies*] Review of Systems Review of Systems: Yes Unobtainable due to mental status PMFSH Past Medical History Medical History Anxiety Asthma-COPD overlap syndrome Depression Diabetes mellitus, type 2 GERD (gastroesophageal reflux disease) New onset atrial fibrillation Surgical History History of section History of shoulder surgery Family History Family History Father Cancer Mother No problems noted. Social History Social History Household Members: Family Housing: Unknown / Unable to assess Unable to assess alcohol history related to: Unable to respond Alcohol intake: former Patient Tobacco Use Status: Never used Tobacco Advance Directives: Yes Advance Directives on File: Yes Advance Directives Date on File: 12/24/21 service: No Physical Exam ED Vital Signs: Vital Signs - 24 hr 03/19/22 10:30 03/19/22 14:45 Pulse Rate 98 94 Respiratory Rate 16 18 Blood Pressure 127/79 160/85 H Pulse Oximetry 97 96 Oxygen Delivery Method Room Air Room Air BMI result Body Mass Index 25.5 Const Other: She is not toxic in no distress she is awake and alert General: cooperative Nutritional Appearance: average body habitus Orientation/consciousness: Other orientation findings (Disoriented to times) Limitations: no limitations HENMT Head: Yes normal to inspection General nose exam: Normal external nose present Face and sinus: Yes normal facial exam Mouth: Normal oral and palatal mucosa present Throat: Yes posterior oropharynx normal Neck Neck: Yes normal visual inspection, Yes full ROM and Yes no meningeal signs Thyroid: Thyroid normal Chest Chest palpation & inspection: normal inspection of the chest Resp Effort & Inspection: normal respiratory effort Auscultation: clear to auscultation bilaterally Cardio Jugular venous distension: no JVD Rate: regular rate Rhythm: regular rhythm GI Inspection: Yes normal to inspection Palpation (GI): Soft to palpation, not firm, nontender and no guarding Skin General skin exam: no rashes or lesions noted, elasticity normal and turgor normal Lesions: no lesions Rashes: no rashes Neuro General: no meningeal signs and no focal motor deficits Cranial nerves: Yes CN's II-XII intact bilaterally Course Reevaluation(s) Reevaluation #1: Pt was seen by ICU DR Adolfo VARGAS to admit to C Spoke with renal Dr Williamson Unable to give Zomate per Pharmacy because renal funtion,will give calcitonine Time: 12:44 Reevaluation #2: Spoke with Dr Bolivar Hospitalist Medical Decision Making Lab Data Result diagrams: 03/19/22 11:05 03/19/22 13:57 Labs: Lab Results 03/19/22 03/19/22 03/19/22 Range/Units 11:05 11:05 11:05 WBC 5.0 (4.8-10.8) X10*3/uL RBC 2.75 L (4.20-5.50) X10*6/uL Hgb 9.0 L (12.0-16.0) g/dl Hct 26.1 L (37.0-47.0) % MCV 94.9 (80.0-98.0) fL MCH 32.7 (27.0-33.0) pg MCHC 34.5 (31.0-35.0) g/dl RDW 14.5 (11.0-16.0) % Plt Count 152 L (160-400) X10*3/uL MPV 8.9 L (9.4-12.3) fL Immature Gran % (Auto) 1.2 H (0.0-0.4) % Neut % (Auto) 71.0 (45-73) % Lymph % (Auto) 15.6 L (20-40) % [place] % (Auto) 7.1 (2-11) % Eos % (Auto) 5.1 H (0-4) % Baso % (Auto) 0.0 (0-2) % Lymph # (Auto) 0.8 L (1.2-4.9) X10*3/uL [place] # (Auto) 0.4 (0.1-1.2) X10*3/uL Eos # (Auto) 0.3 (0.0-0.4) X10*3/uL Baso # (Auto) 0.0 (0.0-0.2) X10*3/uL Abs Immat Gran (auto) 0.06 H (0.00-0.03) X10*3/uL Absolute Neuts (auto) 3.5 (2.0-8.3) x10*3/uL Absolute Nucleated RBC 0.000 (0.0-0.012) X10*3/uL Nucleated RBC % (auto) 0.0 (0.0-0.2) /100WBC Smear Tech's Comments VERIFIED PT 10.1 (10.0-13.1) SEC INR 0.9 (0.9-1.1) APTT 29.6 (26.0-36.4) SEC Sodium 132 L (135-145) mmol/L Potassium 4.7 (3.3-5.1) mmol/L Chloride 97 (96-108) mmol/L Carbon Dioxide 27 (22-29) mmol/L Anion Gap 13 (12-20) BUN 39 H D (9-16) mg/dL Creatinine 1.70 H (0.5-1.4) mg/dL Estim Creat Clear Calc 27.8 Estimated GFR 29 Random Glucose 100 (60-115) mg/dL Calcium 17.9 H* D (8.4-10.2) mg/dL Total Bilirubin 0.5 (0.0-1.0) mg/dL AST 17 (5-31) U/L ALT 18 (0-31) U/L Alkaline Phosphatase 67 (39-117) U/L Troponin I High Sens (<3.5-17.0) ng/L Total Protein 6.3 L (6.5-8.0) g/dL Albumin 3.3 L (3.5-5.0) g/dL Urine Color Urine Appearance Urine pH (5.0-9.0) Ur Specific [place] (1.005-1.025) Urine Protein (Neg-Trace) mg/dL Urine Glucose (UA) (Negative) mg/dL Urine Ketones (Negative) mg/dL Urine Blood (Negative) Urine Nitrite (Negative) Ur Leukocyte Esterase (Negative) Urine RBC (0-2) /HPF Urine WBC (0-5) /HPF Ur Squamous Epith Cells (0-2) /HPF Urine Bacteria (None Seen) Hyaline Casts (0-2) /LPF COVID-19 (RANJIT) (Negative) COVID-19 Clin Com 03/19/22 03/19/22 03/19/22 Range/Units 11:05 11:05 12:02 WBC (4.8-10.8) X10*3/uL RBC (4.20-5.50) X10*6/uL Hgb (12.0-16.0) g/dl Hct (37.0-47.0) % MCV (80.0-98.0) fL MCH (27.0-33.0) pg MCHC (31.0-35.0) g/dl RDW (11.0-16.0) % Plt Count (160-400) X10*3/uL MPV (9.4-12.3) fL Immature Gran % (Auto) (0.0-0.4) % Neut % (Auto) (45-73) % Lymph % (Auto) (20-40) % [place] % (Auto) (2-11) % Eos % (Auto) (0-4) % Baso % (Auto) (0-2) % Lymph # (Auto) (1.2-4.9) X10*3/uL [place] # (Auto) (0.1-1.2) X10*3/uL Eos # (Auto) (0.0-0.4) X10*3/uL Baso # (Auto) (0.0-0.2) X10*3/uL Abs Immat Gran (auto) (0.00-0.03) X10*3/uL Absolute Neuts (auto) (2.0-8.3) x10*3/uL Absolute Nucleated RBC (0.0-0.012) X10*3/uL Nucleated RBC % (auto) (0.0-0.2) /100WBC Smear Tech's Comments PT (10.0-13.1) SEC INR (0.9-1.1) APTT (26.0-36.4) SEC Sodium (135-145) mmol/L Potassium (3.3-5.1) mmol/L Chloride (96-108) mmol/L Carbon Dioxide (22-29) mmol/L Anion Gap (12-20) BUN (9-16) mg/dL Creatinine (0.5-1.4) mg/dL Estim Creat Clear Calc Estimated GFR Random Glucose (60-115) mg/dL Calcium (8.4-10.2) mg/dL Total Bilirubin (0.0-1.0) mg/dL AST (5-31) U/L ALT (0-31) U/L Alkaline Phosphatase (39-117) U/L Troponin I High Sens 15.1 D (<3.5-17.0) ng/L Total Protein (6.5-8.0) g/dL Albumin (3.5-5.0) g/dL Urine Color Yellow Urine Appearance Clear Urine pH 6.5 (5.0-9.0) Ur Specific [place] 1.010 (1.005-1.025) Urine Protein Negative (Neg-Trace) mg/dL Urine Glucose (UA) Negative (Negative) mg/dL Urine Ketones Negative (Negative) mg/dL Urine Blood Negative (Negative) Urine Nitrite Negative (Negative) Ur Leukocyte Esterase Trace H (Negative) Urine RBC 0-2 (0-2) /HPF Urine WBC 0-5 (0-5) /HPF Ur Squamous Epith Cells 0-2 (0-2) /HPF Urine Bacteria None Seen (None Seen) Hyaline Casts 0-2 (0-2) /LPF COVID-19 (RANJIT) Negative (Negative) COVID-19 Clin Com See Note 03/19/22 Range/Units 13:57 WBC (4.8-10.8) X10*3/uL RBC (4.20-5.50) X10*6/uL Hgb (12.0-16.0) g/dl Hct (37.0-47.0) % MCV (80.0-98.0) fL MCH (27.0-33.0) pg MCHC (31.0-35.0) g/dl RDW (11.0-16.0) % Plt Count (160-400) X10*3/uL MPV (9.4-12.3) fL Immature Gran % (Auto) (0.0-0.4) % Neut % (Auto) (45-73) % Lymph % (Auto) (20-40) % [place] % (Auto) (2-11) % Eos % (Auto) (0-4) % Baso % (Auto) (0-2) % Lymph # (Auto) (1.2-4.9) X10*3/uL [place] # (Auto) (0.1-1.2) X10*3/uL Eos # (Auto) (0.0-0.4) X10*3/uL Baso # (Auto) (0.0-0.2) X10*3/uL Abs Immat Gran (auto) (0.00-0.03) X10*3/uL Absolute Neuts (auto) (2.0-8.3) x10*3/uL Absolute Nucleated RBC (0.0-0.012) X10*3/uL Nucleated RBC % (auto) (0.0-0.2) /100WBC Smear Tech's Comments PT (10.0-13.1) SEC INR (0.9-1.1) APTT (26.0-36.4) SEC Sodium 135 (135-145) mmol/L Potassium 4.1 (3.3-5.1) mmol/L Chloride 100 (96-108) mmol/L Carbon Dioxide 28 (22-29) mmol/L Anion Gap 11 L (12-20) BUN 38 H (9-16) mg/dL Creatinine 1.65 H (0.5-1.4) mg/dL Estim Creat Clear Calc 28.6 Estimated GFR 30 Random Glucose 94 (60-115) mg/dL Calcium 14.5 H* D (8.4-10.2) mg/dL Total Bilirubin 0.5 (0.0-1.0) mg/dL AST 16 (5-31) U/L ALT 16 (0-31) U/L Alkaline Phosphatase 63 (39-117) U/L Troponin I High Sens (<3.5-17.0) ng/L Total Protein 5.9 L (6.5-8.0) g/dL Albumin 3.2 L (3.5-5.0) g/dL Urine Color Urine Appearance Urine pH (5.0-9.0) Ur Specific [place] (1.005-1.025) Urine Protein (Neg-Trace) mg/dL Urine Glucose (UA) (Negative) mg/dL Urine Ketones (Negative) mg/dL Urine Blood (Negative) Urine Nitrite (Negative) Ur Leukocyte Esterase (Negative) Urine RBC (0-2) /HPF Urine WBC (0-5) /HPF Ur Squamous Epith Cells (0-2) /HPF Urine Bacteria (None Seen) Hyaline Casts (0-2) /LPF COVID-19 (RANJIT) (Negative) COVID-19 Clin Com Critical Care Time Critical Care Time Critical Care Time: Yes Total Critical Care Time: 60 Attestation: TAKING CARE OF PT,SPEAKING WITH RENAL/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
[2022-03-19] MEDS: 0.9 % Sodium Chloride 1,000 ML 999 ML IVCONT ×2 (11:08→12:30)
[2022-03-19 11:15] LABS: Eosinophils Absolute Auto 0.3 X10*3/uL (0.0-0.4); Eosinophils Percent Auto 5.1 % (0-4); Hematocrit 26.1 % (37.0-47.0); Imm Gran Abs Auto 0.06 X10*3/uL (0.00-0.03); Imm Gran Pct Auto 1.2 % (0.0-0.4); Lymphocytes Absolute Auto 0.8 X10*3/uL (1.2-4.9); Lymphocytes Percent Auto 15.6 % (20-40); MANUAL DIFF FLAG SCAN; Mean Corpuscular Hemoglobin 32.7 pg (27.0-33.0); Mean Corpuscular Volume 94.9 fL (80.0-98.0); Mean Platelet Volume 8.9 fL (9.4-12.3); Monocytes Absolute Auto 0.4 X10*3/uL (0.1-1.2); Monocytes Percent Auto 7.1 % (2-11); Neutrophils Absolute Auto 3.5 x10*3/uL (2.0-8.3); Platelet Count 152 X10*3/uL (160-400); Red Blood Count 2.75 X10*6/uL (4.20-5.50); Red Cell Distribution Width 14.5 % (11.0-16.0); SCAN SMEAR FLAG 1
[2022-03-19 11:16] LABS: Mean Corpuscular HGB Conc 34.5 g/dl (31.0-35.0)
[2022-03-19 11:28] LABS: INTERNATIONAL NORM RATIO 0.9 (0.9-1.1); Prothrombin Time 10.1 SEC (10.0-13.1)
[2022-03-19 11:30] LABS: COVID-19 Test Negative (Negative); IDNOW Serial# 16C4AD1C; Partial Thromboplastin Time 29.6 SEC (26.0-36.4)
[2022-03-19 11:40] LABS: Troponin-I High Sensitivity 15.1 ng/L (<3.5-17.0)
[2022-03-19 11:44] LABS: Alanine Aminotransferase 18 U/L (0-31); Albumin Level 3.3 g/dL (3.5-5.0); Alkaline Phosphatase 67 U/L (39-117); Anion Gap 13 (12-20); Aspartate Amino Transferase 17 U/L (5-31); Bilirubin Total 0.5 mg/dL (0.0-1.0); Blood Urea Nitrogen 39 mg/dL (9-16); Carbon Dioxide 27 mmol/L (22-29); Chloride 97 mmol/L (96-108); Creatinine Clr Calc Pharmacy 27.8; Estimated Glomerular Filt Rate 29; Glucose Random 100 mg/dL (60-115); Potassium 4.7 mmol/L (3.3-5.1); Sodium 132 mmol/L (135-145); Total Protein 6.3 g/dL (6.5-8.0)
[2022-03-19 11:51] LABS: SLIDE REVIEW VERIFIED
[2022-03-19 11:53] LABS: Calcium 17.9 mg/dL (8.4-10.2)
[2022-03-19 12:10] LABS: Appearance Urine Clear; Color Urine Yellow; Glucose Urine UA Negative (Negative); Leukocyte Esterase Urine Trace (Negative); Nitrite Urine Negative (Negative); PH 6.5 (5.0-9.0); Urine Blood Negative (Negative); Urine Ketones Negative (Negative); Urine Protein Negative (Neg-Trace)
[2022-03-19 12:13] LABS: Bacteria Urine None Seen (None Seen); Hyaline Casts Urine 0-2 /LPF (0-2); RBC Urine 0-2 /HPF (0-2); Squamous Epithelial Cell Urine 0-2 /HPF (0-2); WBC Urine 0-5 /HPF (0-5)
[2022-03-19] MEDS: Furosemide 20 MG/2 ML VIAL IVPUSH (12:13)
--- NOTE | 2022-03-19 12:45 | PM.CCN ---
Critical Care Event Note Summary Date of Service: 03/19/22 Code activated: No Narrative: Briefly, 71-year-old lady with prior admission for hypercalcemia, possible secondary to malignancy, now being admitted for repeated hypercalcemia and lethargy. On ER workup, corrected calcium of 18.5, dehydrated. Evaluated by nephrology, started on IV fluids, Lasix, biphosphonate. On my exam: normal hemodynamics and respiratory status, alert and oriented. Agree with current treatment plan including IV fluids, diuretic, biphosphonate. Consider addition of calcitonin. At this time patient does not require intensive care unit level of care, please notify for re-evaluation, if patient's condition changes. Critical Care Time (minutes): 0
--- NOTE | 2022-03-19 14:06 | PHA.MEDREC ---
Pharmacy Consult ? Medication Reconciliation Pharmacy has completed the medication reconciliation. Called pt's porter sample case Ludivina from [facility] ([phone]) who faxed current med list.
[2022-03-19 14:36] LABS: Alanine Aminotransferase 16 U/L (0-31); Albumin Level 3.2 g/dL (3.5-5.0); Alkaline Phosphatase 63 U/L (39-117); Anion Gap 11 (12-20); Aspartate Amino Transferase 16 U/L (5-31); Bilirubin Total 0.5 mg/dL (0.0-1.0); Blood Urea Nitrogen 38 mg/dL (9-16); Calcium 14.5 mg/dL (8.4-10.2); Carbon Dioxide 28 mmol/L (22-29); Chloride 100 mmol/L (96-108); Creatinine Clr Calc Pharmacy 28.6; Estimated Glomerular Filt Rate 30; Glucose Random 94 mg/dL (60-115); Potassium 4.1 mmol/L (3.3-5.1); Sodium 135 mmol/L (135-145); Total Protein 5.9 g/dL (6.5-8.0)
[2022-03-19 14:45] VITALS: BP 160/85; PULSE 94; RESP 18; O2SAT 96
[2022-03-19 14:46] VITALS: BP 159/99; PULSE 97; O2SAT 97
--- NOTE | 2022-03-19 14:47 | PM.IMHP ---
History of Present Illness Date of Service: 03/19/22 Chief Complaint: ams 71F PMH of low PTH hypercalcemia (work up ongoing), depression, gerd, moderate persistent asthma/copd, DM (resolved with weight loss), opiate dependence (no longer on suboxone), HTN, presented with ams. patient had been admitted to [facility] december 2021 for hypercalcemia, found to have low pth, work up including CT abd and chest did not reveal malignancy. patient had been at home with VNA. on day of presentation VNA found patient lethargic and confused so called EMS. in ED found to be hypercalcemic - corrected of 18.5. [place]MEN[place]A. Review of Systems Review of Systems: Constitutional: weight loss Eyes: denies blurry vision ENT: denies sore throat CVS: denies chest pain Respiratory: Denies dyspnea GI: no abdominal pain : denies dysuria MSK: denies neck pain Skin: denies rash Neuro: denies specific motor weakness Psych: denies suicidal ideation Endocrine: denies heat/cold intolerance Hematologic: denies easy bleeding Allergy: denies hives [facility] Medical History (Updated 03/19/22 @ 14:52 by Alonso Maguire MD) Anxiety Asthma-COPD overlap syndrome Depression Diabetes mellitus, type 2 GERD (gastroesophageal reflux disease) New onset atrial fibrillation Family History Father Cancer Mother No problems noted. Surgical History History of section History of shoulder surgery Social History Household Members: Family Housing: Unknown / Unable to assess Unable to assess alcohol history related to: Unable to respond Alcohol intake: former Patient Tobacco Use Status: Never used Tobacco Advance Directives: Yes Advance Directives on File: Yes Advance Directives Date on File: 12/24/21 service: No Meds Allergies Allergy/AdvReac Type Severity Reaction Status Date / Time No Known Allergies Allergy Verified 01/28/22 02:17 [No Known Allergies*] Active Medications: Current Medications Aripiprazole (Aripiprazole 2 Mg Tablet) 4 mg PO DAILY DEDE Buspirone HCl (Buspirone Hcl 5 Mg Tablet) 15 mg PO BID DEDE Duloxetine HCl (Duloxetine Hcl 60 Mg Capsule.Dr) 60 mg PO BID [facility] Ferrous Sulfate (Ferrous Sulfate 324 Mg Tablet.) 324 mg PO DAILY [facility] Non-Formulary Medication (Fluticasone Propionate [Flovent Hfa]) 2 puff INHALE BID [facility] Non-Formulary Medication (Pantoprazole) 40 mg PO DAILY [facility] Pharmacy Consult (Consult Rx Perform Med Rec) 1 each MISCELLANE ONCE PRN PRN Reason: Consult order Pramipexole Dihydrochloride (Pramipexole Di-Hcl 0.125 Mg Tablet) 0.125 mg PO BID [facility] Thiamine HCl (Thiamine Hcl 100 Mg Tablet) 100 mg PO DAILY [facility] Home Medications Medication Instructions Recorded Confirmed Last Taken Type buspirone 15 mg tablet 15 mg PO BID 04/17/20 03/19/22 Unknown History duloxetine 60 mg capsule,delayed 60 mg PO BID 04/17/20 03/19/22 Unknown History release pramipexole 0.125 mg tablet 0.125 mg PO BID 04/26/20 03/19/22 Unknown History acetaminophen 500 mg tablet 1,000 mg PO Q8H 12/21/21 01/29/22 Unknown History albuterol sulfate 90 mcg/actuation 2 puff inhalation Q6H PRN 12/21/21 03/19/22 Unknown History aerosol inhaler shortness of breath or wheezing cholecalciferol (vitamin D3) 125 125 mcg PO DAILY 12/21/21 03/19/22 Unknown History mcg (5,000 unit) capsule fluticasone propionate 110 2 puff inhalation BID 12/21/21 03/19/22 Unknown History mcg/actuation HFA aerosol inhaler (Flovent HFA) methyl salicylate 30 %-menthol 10 1 appl topical TID PRN Muscle Pain 12/21/21 03/19/22 Unknown History % topical cream (Icy Hot) hlfmghoj-kbg-qxpxc acid 0.4 1 tab PO DAILY 12/21/21 03/19/22 Unknown History mg-lycopene 300 mcg-lutein 250 mcg tablet (Cerovite Senior) pantoprazole 40 mg tablet,delayed 40 mg PO DAILY 12/21/21 03/19/22 Unknown History release sodium chloride 0.65 % nasal spray 2 spray intranasal QID PRN Nasal 12/21/21 03/19/22 Unknown History aerosol ([place] Nasal) Congestion thiamine HCl (vitamin B1) 100 mg 100 mg PO DAILY 12/21/21 03/19/22 Unknown History tablet aripiprazole 2 mg tablet 4 mg PO DAILY 03/19/22 03/19/22 Unknown History ferrous sulfate 325 mg (65 mg 1 tab PO DAILY 03/19/22 03/19/22 Unknown History iron) tablet fexofenadine 60 mg tablet 60 mg PO DAILY 03/19/22 03/19/22 Unknown History loperamide 2 mg tablet 2 mg PO Q6H PRN Loose Stool 03/19/22 03/19/22 Unknown History promethazine 25 mg tablet 25 mg PO QID PRN Nausea And 03/19/22 03/19/22 Unknown History Vomiting Physical Exam Vital Signs and Narrative: Vital Signs: Last Vital Signs Pulse 94 03/19/22 14:45 Resp 18 03/19/22 14:45 BP 160/85 H 03/19/22 14:45 Pulse Ox 96 03/19/22 14:45 O2 Del Method 03/19/22 14:45 BMI result Body Mass Index 25.5 General: no acute distress, lethargic HEENT: atraumatic Neck: normal to visual inspection CVS: S1, S2, RRR Resp: CTA bilateral Chest: non tender, no obvious breast mass GI: soft, non tender, non distended : no CVA tenderness Skin: no rashes Extremities: no edema Neuro: Oriented X3, grossly intact Psych: cooperative Results Labs CBC and Chem 7: 03/19/22 11:05 03/19/22 13:57 Labs: Laboratory Results - last 24 hr 03/19/22 03/19/22 03/19/22 11:05 11:05 11:05 MCV 94.9 MCH 32.7 MCHC 34.5 RDW 14.5 Plt Count 152 L MPV 8.9 L Immature Gran % (Auto) 1.2 H Neut % (Auto) 71.0 Lymph % (Auto) 15.6 L [place] % (Auto) 7.1 Eos % (Auto) 5.1 H Baso % (Auto) 0.0 Lymph # (Auto) 0.8 L [place] # (Auto) 0.4 Eos # (Auto) 0.3 Baso # (Auto) 0.0 Abs Immat Gran (auto) 0.06 H Absolute Neuts (auto) 3.5 Absolute Nucleated RBC 0.000 Nucleated RBC % (auto) 0.0 Smear Tech's Comments VERIFIED PT 10.1 INR 0.9 APTT 29.6 Anion Gap 13 Estim Creat Clear Calc 27.8 Estimated GFR 29 Random Glucose 100 Calcium 17.9 H* D Total Bilirubin 0.5 AST 17 ALT 18 Alkaline Phosphatase 67 Total Protein 6.3 L Albumin 3.3 L Urine Color Urine Appearance Urine pH Ur Specific [place] Urine Protein Urine Glucose (UA) Urine Ketones Urine Blood Urine Nitrite Ur Leukocyte Esterase Urine RBC Urine WBC Ur Squamous Epith Cells Urine Bacteria Hyaline Casts COVID-19 (RANJIT) COVID-19 Clin Com 03/19/22 03/19/22 03/19/22 11:05 12:02 13:57 MCV MCH MCHC RDW Plt Count MPV Immature Gran % (Auto) Neut % (Auto) Lymph % (Auto) [place] % (Auto) Eos % (Auto) Baso % (Auto) Lymph # (Auto) [place] # (Auto) Eos # (Auto) Baso # (Auto) Abs Immat Gran (auto) Absolute Neuts (auto) Absolute Nucleated RBC Nucleated RBC % (auto) Smear Tech's Comments PT INR APTT Anion Gap 11 L Estim Creat Clear Calc 28.6 Estimated GFR 30 Random Glucose 94 Calcium 14.5 H* D Total Bilirubin 0.5 AST 16 ALT 16 Alkaline Phosphatase 63 Total Protein 5.9 L Albumin 3.2 L Urine Color Yellow Urine Appearance Clear Urine pH 6.5 Ur Specific [place] 1.010 Urine Protein Negative Urine Glucose (UA) Negative Urine Ketones Negative Urine Blood Negative Urine Nitrite Negative Ur Leukocyte Esterase Trace H Urine RBC 0-2 Urine WBC 0-5 Ur Squamous Epith Cells 0-2 Urine Bacteria None Seen Hyaline Casts 0-2 COVID-19 (RANJIT) Negative COVID-19 Clin Com See Note Imaging Radiologist's Impressions: Impressions Head CT 03/19/22 10:55 IMPRESSION: No acute intracranial abnormality. Chest X-Ray 03/19/22 11:31 IMPRESSION: -Coarsening bronchiolar markings similar to prior exam. -No lobar or segmental airspace consolidation or effusion. Assessment and Plan (1) Hypercalcemia: Status: Acute Plan 71F PMH of low PTH hypercalcemia (work up ongoing), depression, gerd, moderate persistent asthma/copd, DM (resolved with weight loss), opiate dependence (no longer on suboxone), HTN, presented with ams, found to have reccurent hypercalcemia Metabolic encephalopathy due to hypercalcemia previously low PTH, pthrp within normal range, no obvious malignancy, though highly suspicious for malignancy due to weight loss and low PTH stop vitamin-D was given Zometa, normal saline, Lasix continue Lasix normal saline nephrology eval check SPEP and UPEP monitor BMP acute kidney injury due to dehydration from hypercalcemia hydrate and monitor history of diabetes resolved after weight loss mood disorder continue Cymbalta, BuSpar, aripiprazole GERD H2 venice, ppi moderate persistent asthma/copd stbale albuterol as needed opiate dependence not on suboxone anymore HTN no longer on hctz monitor for now dvt prophylaxis - hep sq DNR/DNI - per molst patient with severe hypercalcemia leading to alteration mental status complicated by acute kidney injury, requiring aggressive IV hydration and close monitoring of labs, therefore, expected to require at least 2 midnights in the hospital Quality Stroke Does the patient have a stroke diagnosis?: No VTE Prior VTE?: No VTE Risk Level:: Medical - moderate - high VTE Device Contraindication: Treatment Not Indicated VTE Drug Contraindication: N/A - Med Ordered
[2022-03-19] MEDS: Heparin Sodium,Porcine 5,000 UNIT/ML VIAL 5000 UNIT SUBCUT (15:24)
[2022-03-19] MEDS: 0.9 % Sodium Chloride 1,000 ML 125 ML IVCONT (15:24)
[2022-03-19 15:37] VITALS: BP 149/89; PULSE 93; O2SAT 96
--- NOTE | 2022-03-19 18:19 | PC.NURSE ---
this medical writer called Radha ([phone]) at [facility] regarding housing for pt's dog during her admission, no answer, left voicemail. Called answering service ([phone]), awaiting call back.
--- NOTE | 2022-03-19 20:35 | MHC.CM.PN ---
IMM 03/19. Pt is known to CM from previous visits. Pt is sleepy and weak, but able to answer questions appropriately. Pt lives alone. 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 Pt was able to tell CM she uses a walker and commode. Pt tells CM that she has been very weak and does not feel well. Pt tells CM she had 2 Moderna and 2 Pfizer vaccinations. Medical record: Pfizer 10/05/20 & 10/26/20 and Moderna 09/03/21 & 11/27/21. HCP is Pastor Bhandari and Alaina Noguera ([phone] & [phone]). Pt tells CM her PCP is Dr. Sweeney. Pt has [facility] on record: DNR/DNI, transfer to hospital, IV, Nutrition, dialysis. CM will need to call Ludivina Carlson at [facility] in the morning to verify services. ([phone]). Pt was at [facility] in December. D/C plan: probable STR. Pt will need PT assessment. Pt will need transportation. No referrals placed at this time. CM to follow for d/c planning.
[2022-03-19] MEDS: DULoxetine HCl 60 MG CAPSULE.DR PO (22:17)
[2022-03-19] MEDS: busPIRone HCl 5 MG TABLET 15 MG PO (22:17)
[2022-03-20] MEDS: Pramipexole Di-HCL 0.125 MG TABLET PO ×3 (00:20→21:53)
[2022-03-20] MEDS: 0.9 % Sodium Chloride 1,000 ML 125 ML IVCONT ×4 (00:20→21:53)
[2022-03-20] MEDS: Heparin Sodium,Porcine 5,000 UNIT/ML VIAL 5000 UNIT SUBCUT ×4 (00:21→21:53)
[2022-03-20] MEDS: 0.9 % Sodium Chloride Flush 3 ML SYRINGE IVFLUSH (00:21)
[2022-03-20] MEDS: Fluticasone Propionate 100 MCG BLST.W.DEV 2 PUFF INHALE ×3 (00:23→21:54)
[2022-03-20 06:00] VITALS: BP 167/104; PULSE 123; RESP 14; TEMP 37.8; O2SAT 95
[2022-03-20] MEDS: Omeprazole 20 MG CAPSULE.DR PO (06:20)
--- NOTE | 2022-03-20 06:42 | PM.EVENT ---
Event Note Date of Service: 03/20/22 Event Note: Patient this morning has a temp of 100.1 degrees as well as tachycardic to the 120s. Patient's labs reviewed, she appears to have had a mild leukocyte Estrace and her urine but otherwise no source of infection. Will obtain lactic acid, blood culture, will start her on ceftriaxone pre empirically
[2022-03-20] MEDS: Acetaminophen 325 MG TABLET 650 MG PO (06:46)
[2022-03-20 07:17] LABS: Hemoglobin 8.3 g/dl (12.0-16.0); Mean Corpuscular HGB Conc 34.6 g/dl (31.0-35.0); Mean Corpuscular Hemoglobin 32.3 pg (27.0-33.0); Mean Corpuscular Volume 93.4 fL (80.0-98.0); Mean Platelet Volume 8.5 fL (9.4-12.3); Platelet Count 187 X10*3/uL (160-400); Red Blood Count 2.57 X10*6/uL (4.20-5.50); Red Cell Distribution Width 14.3 % (11.0-16.0); White Blood Count 5.8 X10*3/uL (4.8-10.8)
[2022-03-20 07:30] LABS: Lactic Acid 1.1 mmol/L (0.5-2.0)
[2022-03-20 08:04] LABS: Alanine Aminotransferase 16 U/L (0-31); Albumin Level 3.5 g/dL (3.5-5.0); Alkaline Phosphatase 73 U/L (39-117); Anion Gap 17 (12-20); Aspartate Amino Transferase 18 U/L (5-31); Bilirubin Direct 0.3 mg/dL (0.0-0.5); Bilirubin Total 0.5 mg/dL (0.0-1.0); Blood Urea Nitrogen 37 mg/dL (9-16); Calcium 14.2 mg/dL (8.4-10.2); Carbon Dioxide 25 mmol/L (22-29); Chloride 100 mmol/L (96-108); Creatinine Clr Calc Pharmacy 26.1; Estimated Glomerular Filt Rate 27; Glucose Fasting 87 mg/dL (60-99); Potassium 3.8 mmol/L (3.3-5.1); Sodium 138 mmol/L (135-145); Total Protein 6.6 g/dL (6.5-8.0)
[2022-03-20] MEDS: cefTRIAXone sodium 1 GM in 0.9 % Sodium Chloride 50 ML IV (09:41)
[2022-03-20] MEDS: busPIRone HCl 5 MG TABLET 15 MG PO ×2 (09:41→21:53)
[2022-03-20] MEDS: Ferrous Sulfate 324 MG TABLET.DR PO (09:42)
[2022-03-20] MEDS: Furosemide 40 MG/4 ML VIAL IVPUSH (09:42)
[2022-03-20] MEDS: DULoxetine HCl 60 MG CAPSULE.DR PO ×2 (09:42→21:53)
[2022-03-20] MEDS: Thiamine HCL 100 MG TABLET PO (09:42)
[2022-03-20 09:44] VITALS: BP 170/98; PULSE 102; RESP 18; O2SAT 96
--- NOTE | 2022-03-20 10:28 | PM.CNNEP ---
History of Present Illness Reason for Consult Consult date: 03/20/22 Chief Complaint Chief complaint: Hypocalcemia History of Present Illness Narrative: 71F PMH of hypercalcemia (work up ongoing) who presented to [facility] with AMS. patient was admitted to [facility] [place] [facility] december 2021 for hypercalcemia, found to have low pth, work up including CT abd and chest. patient had been at home with VNA. on day of presentation VNA found patient lethargic and confused so called EMS. in ED found to be hypercalcemic with a corrected calcium of 18.5 with CARMENCITA. Nephrology has been consulted to assist in her clinical care during her current hospital stay Review of Systems Review of Systems Yes all other systems are reviewed and are negative [facility] Past Medical History Medical History (Updated 03/20/22 @ 10:43 by Jerrod Philip MD) Anxiety Asthma-COPD overlap syndrome Depression Diabetes mellitus, type 2 GERD (gastroesophageal reflux disease) New onset atrial fibrillation Family History Family History Father Cancer Mother No problems noted. Surgical History Surgical History History of section History of shoulder surgery Social History Social History Household Members: Family Housing: Unknown / Unable to assess Unable to assess alcohol history related to: Unable to respond Alcohol intake: former Patient Tobacco Use Status: Never used Tobacco Advance Directives: Yes Advance Directives on File: Yes Advance Directives Date on File: 12/24/21 service: No Current occupational status: unemployed and retired Meds Allergies Allergy/AdvReac Type Severity Reaction Status Date / Time No Known Allergies Allergy Verified 01/28/22 02:17 [No Known Allergies*] Active Medications: Current Medications Acetaminophen (Acetaminophen 325 Mg Tablet) 650 mg PO Q6H PRN PRN Reason: Pain, Mild (Pain Scale 1-3) Last Admin: 03/20/22 06:46 Dose: 650 mg Aripiprazole (Aripiprazole 2 Mg Tablet) 4 mg PO DAILY DEDE Buspirone HCl (Buspirone Hcl 5 Mg Tablet) 15 mg PO BID DEDE Last Admin: 03/20/22 09:41 Dose: 15 mg Duloxetine HCl (Duloxetine Hcl 60 Mg Capsule.Dr) 60 mg PO BID DEDE Last Admin: 03/20/22 09:42 Dose: 60 mg Ferrous Sulfate (Ferrous Sulfate 324 Mg Tablet.) 324 mg PO DAILY [facility] Last Admin: 03/20/22 09:42 Dose: 324 mg Fluticasone Propionate (Fluticasone Propionate 100 Mcg Blst.W.Dev) 2 puff INHALE BID [facility] Last Admin: 03/20/22 09:44 Dose: 2 puff Furosemide (Furosemide 40 Mg/4 Ml Vial) 40 mg IVPUSH DAILY [facility]; Protocol Last Admin: 03/20/22 09:42 Dose: 40 mg Heparin Sodium (Porcine) (Heparin Sodium,Porcine 5,000 Unit/Ml Vial) 5,000 unit SUBCUT Q8H [facility] Last Admin: 03/20/22 06:20 Dose: 5,000 unit Sodium Chloride (Ns) 1,000 mls @ 125 mls/hr IVCONT .Q8H [facility] Last Admin: 03/20/22 06:19 Dose: 125 mls/hr Ceftriaxone Sodium 1 gm/ (Sodium Chloride) 50 mls @ 100 mls/hr IV Q24H [facility] Last Admin: 03/20/22 09:41 Dose: 100 mls/hr Omeprazole (Omeprazole 20 Mg Capsule.) 20 mg PO DAILY@0630 [facility] Last Admin: 03/20/22 06:20 Dose: 20 mg Pharmacy Consult (Consult Rx Perform Med Rec) 1 each MISCELLANE ONCE PRN PRN Reason: Consult order Pramipexole Dihydrochloride (Pramipexole Di-Hcl 0.125 Mg Tablet) 0.125 mg PO BID [facility] Last Admin: 03/20/22 00:20 Dose: 0.125 mg Sodium Chloride (0.9 % Sodium Chloride Flush 3 Ml Syringe) 3 ml IVFLUSH QSHIFT [facility] Last Admin: 03/20/22 09:43 Dose: Not Given Thiamine HCl (Thiamine Hcl 100 Mg Tablet) 100 mg PO DAILY [facility] Last Admin: 03/20/22 09:42 Dose: 100 mg Home Medications Medication Instructions Recorded Confirmed Last Taken Type buspirone 15 mg tablet 15 mg PO BID 04/17/20 03/19/22 Unknown History duloxetine 60 mg capsule,delayed 60 mg PO BID 04/17/20 03/19/22 Unknown History release pramipexole 0.125 mg tablet 0.125 mg PO BID 04/26/20 03/19/22 Unknown History acetaminophen 500 mg tablet 1,000 mg PO Q8H 12/21/21 01/29/22 Unknown History albuterol sulfate 90 mcg/actuation 2 puff inhalation Q6H PRN 12/21/21 03/19/22 Unknown History aerosol inhaler shortness of breath or wheezing cholecalciferol (vitamin D3) 125 125 mcg PO DAILY 12/21/21 03/19/22 Unknown History mcg (5,000 unit) capsule fluticasone propionate 110 2 puff inhalation BID 12/21/21 03/19/22 Unknown History mcg/actuation HFA aerosol inhaler (Flovent HFA) methyl salicylate 30 %-menthol 10 1 appl topical TID PRN Muscle Pain 12/21/21 03/19/22 Unknown History % topical cream (Icy Hot) agjimbuq-hpt-ekunm acid 0.4 1 tab PO DAILY 12/21/21 03/19/22 Unknown History mg-lycopene 300 mcg-lutein 250 mcg tablet (Cerovite Senior) pantoprazole 40 mg tablet,delayed 40 mg PO DAILY 12/21/21 03/19/22 Unknown History release sodium chloride 0.65 % nasal spray 2 spray intranasal QID PRN Nasal 12/21/21 03/19/22 Unknown History aerosol ([place] Nasal) Congestion thiamine HCl (vitamin B1) 100 mg 100 mg PO DAILY 12/21/21 03/19/22 Unknown History tablet aripiprazole 2 mg tablet 4 mg PO DAILY 03/19/22 03/19/22 Unknown History ferrous sulfate 325 mg (65 mg 1 tab PO DAILY 03/19/22 03/19/22 Unknown History iron) tablet fexofenadine 60 mg tablet 60 mg PO DAILY 03/19/22 03/19/22 Unknown History loperamide 2 mg tablet 2 mg PO Q6H PRN Loose Stool 03/19/22 03/19/22 Unknown History promethazine 25 mg tablet 25 mg PO QID PRN Nausea And 03/19/22 03/19/22 Unknown History Vomiting Physical Exam Vital Signs: Last Vital Signs Temp 100.1 F 03/20/22 06:00 Pulse 102 H 03/20/22 09:44 Resp 18 03/20/22 09:44 BP 170/98 H 03/20/22 09:44 Pulse Ox 96 03/20/22 09:44 O2 Del Method 03/20/22 09:44 BMI result Body Mass Index 25.5 Const General: no acute distress Eyes EOM: EOMs intact bilaterally Neck Neck: Yes supple Resp Auscultation: diminished lung sounds Cardio Rate: regular rate GI Palpation (GI): Soft to palpation Neuro General: moves all extremities Results Lab Results Result Diagrams: 03/20/22 07:05 03/20/22 07:05 Lab results: Chemistry 03/19/22 03/19/22 03/20/22 11:05 13:57 07:05 Sodium 132 L 135 138 Potassium 4.7 4.1 3.8 Carbon Dioxide 27 28 25 BUN 39 H D 38 H 37 H Creatinine 1.70 H 1.65 H 1.81 H Calcium 17.9 H* D 14.5 H* D 14.2 H* Hematology 03/19/22 03/20/22 11:05 07:05 WBC 5.0 5.8 Hgb 9.0 L 8.3 L Plt Count 152 L 187 Urinalysis 03/19/22 12:02 Urine Color Yellow Urine Appearance Clear Urine pH 6.5 Ur Specific [place] 1.010 Urine Protein Negative Urine Glucose (UA) Negative Urine Ketones Negative Urine Blood Negative Urine Nitrite Negative Ur Leukocyte Esterase Trace H Urine RBC 0-2 Urine WBC 0-5 Ur Squamous Epith Cells 0-2 Hyaline Casts 0-2 Assessment and Plan (1) Acute kidney failure: Status: Acute (2) Hypercalcemia: Status: Acute Plan CARMENCITA likely due to volume depletion 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 inflammatory breast cancer Was given Zometa; On 0.9% NaCl and furosemide; Serum calcium improving; W/U in progress Labs AM; Shall closely follow up Procedures Date of Service Date of Service: 03/20/22
[2022-03-20 11:58] VITALS: BP 168/82; PULSE 117; RESP 16; O2SAT 97
[2022-03-20] MEDS: ARIPiprazole 2 MG TABLET 4 MG PO (12:40)
--- NOTE | 2022-03-20 14:40 | P.PNIM_ITS ---
Subjective Subjective Date of Service: 03/20/22 Interval History: The patient was seen and evaluated this morning Laying in bed, feels tired with no energy Waking up but goes back to sleep and feels mildly confused Denies any fever, chills No reported other overnight events. Systemic review: Feels tired and report generalized weakness No chest pain, palpitation No shortness of breath or coughing No abdominal pain, nausea or vomiting No urinary symptoms Denies any rash Physical Exam Vital Signs: Vital Signs: Last Vital Signs Temp 100.1 F 03/20/22 06:00 Pulse 117 H 03/20/22 11:58 Resp 16 03/20/22 11:58 BP 168/82 H 03/20/22 11:58 Pulse Ox 97 03/20/22 11:58 O2 Del Method 03/20/22 11:58 BMI result Body Mass Index 25.5 Const: Other: Constitutional : Lethargic, sleepy, not in distress Neck : Normal inspection, Supple Cardiovascular : RRR, no JVP, no lower extremity edema Respiratory : fair bilateral air entry, no crackles, wheezes or rhonchi Gastrointestinal: soft, lax, Normal bowel sounds, Non tender Skin : Warm, Dry Neurological : Alert & oriented to self and place, No focal deficit Objective Data Active Medications Acetaminophen (Acetaminophen 325 Mg Tablet) 650 mg PO Q6H PRN PRN Reason: Pain, Mild (Pain Scale 1-3) Last Admin: 03/20/22 06:46 Dose: 650 mg Documented By: WESLEY Aripiprazole (Aripiprazole 2 Mg Tablet) 4 mg PO DAILY [facility] Last Admin: 03/20/22 12:40 Dose: 4 mg Documented By: LOYDA Buspirone HCl (Buspirone Hcl 5 Mg Tablet) 15 mg PO BID [facility] Last Admin: 03/20/22 09:41 Dose: 15 mg Documented By: ADRIAN Duloxetine HCl (Duloxetine Hcl 60 Mg Capsule.) 60 mg PO BID [facility] Last Admin: 03/20/22 09:42 Dose: 60 mg Documented By: ADRIAN Ferrous Sulfate (Ferrous Sulfate 324 Mg Tablet.) 324 mg PO DAILY [facility] Last Admin: 03/20/22 09:42 Dose: 324 mg Documented By: ADRIAN Fluticasone Propionate (Fluticasone Propionate 100 Mcg Blst.W.Dev) 2 puff INHALE BID [facility] Last Admin: 03/20/22 09:44 Dose: 2 puff Documented By: ADRIAN Furosemide (Furosemide 40 Mg/4 Ml Vial) 40 mg IVPUSH DAILY [facility]; Protocol Last Admin: 03/20/22 09:42 Dose: 40 mg Documented By: ADRIAN Heparin Sodium (Porcine) (Heparin Sodium,Porcine 5,000 Unit/Ml Vial) 5,000 unit SUBCUT Q8H [facility] Last Admin: 03/20/22 14:10 Dose: 5,000 unit Documented By: LOYDA Sodium Chloride (Ns) 1,000 mls @ 125 mls/hr IVCONT .Q8H [facility] Last Admin: 03/20/22 14:11 Dose: 125 mls/hr Documented By: LOYDA Ceftriaxone Sodium 1 gm/ (Sodium Chloride) 50 mls @ 100 mls/hr IV Q24H [facility] Last Infusion: 03/20/22 12:00 Dose: 0 mls/hr Documented By: LOYDA Omeprazole (Omeprazole 20 Mg Capsule.Dr) 20 mg PO DAILY@0630 [facility] Last Admin: 03/20/22 06:20 Dose: 20 mg Documented By: WESLEY Pharmacy Consult (Consult Rx Perform Med Rec) 1 each MISCELLANE ONCE PRN PRN Reason: Consult order Pramipexole Dihydrochloride (Pramipexole Di-Hcl 0.125 Mg Tablet) 0.125 mg PO BID [facility] Last Admin: 03/20/22 12:40 Dose: 0.125 mg Documented By: LOYDA Sodium Chloride (0.9 % Sodium Chloride Flush 3 Ml Syringe) 3 ml IVFLUSH QSHIFT [facility] Last Admin: 03/20/22 09:43 Dose: Not Given Documented By: ADRIAN Non-Admin Reason: IV Running Thiamine HCl (Thiamine Hcl 100 Mg Tablet) 100 mg PO DAILY [facility] Last Admin: 03/20/22 09:42 Dose: 100 mg Documented By: ADRIAN Labs CBC & Chem 7: 03/20/22 07:05 03/20/22 07:05 Labs: Laboratory Results - last 24 hr 03/20/22 03/20/22 03/20/22 07:05 07:05 07:05 MCV 93.4 MCH 32.3 MCHC 34.6 RDW 14.3 Plt Count 187 MPV 8.5 L Absolute Nucleated RBC 0.000 Nucleated RBC % (auto) 0.0 Anion Gap 17 Estim Creat Clear Calc 26.1 Estimated GFR 27 Fasting Glucose 87 Lactic Acid 1.1 Calcium 14.2 H* Total Bilirubin 0.5 Direct Bilirubin 0.3 AST 18 ALT 16 Alkaline Phosphatase 73 Total Protein 6.6 Albumin 3.5 Assessment and Plan (1) Acute kidney failure: Status: Acute (2) Hypercalcemia: Status: Acute (3) Altered mental status: Status: Acute Plan 71F PMH of low PTH hypercalcemia (work up ongoing), depression, gerd, moderate persistent asthma/copd, DM (resolved with weight loss), opiate dependence (no longer on suboxone), HTN, presented with ams, found to have reccurent hypercalcemia Metabolic encephalopathy due to hypercalcemia previously low PTH, pthrp within normal range, no obvious malignancy, though highly suspicious for malignancy due to weight loss and low PTH Trending down to 14.2 Received Zometa Continue normal saline continue Lasix nephrology input appreciated, investigate for underlying malignancy Pending SPEP and UPEP monitor BMP Get Oncology evaluation for reported left breast lesion acute kidney injury Likely ATN due to dehydration from hypercalcemia and nephrogenic DI Creatinine stable at 1.8 hydrate and monitor BMP history of diabetes resolved after weight loss mood disorder continue Cymbalta, BuSpar, aripiprazole GERD H2 venice, ppi moderate persistent asthma/copd stbale albuterol as needed opiate dependence not on suboxone anymore HTN no longer on hctz monitor for now dvt prophylaxis - hep sq DNR/DNI - per molst The patient will need overnight hospital stay for treatment of severe hyperc alcemia leading to alteration mental status complicated by acute kidney injury, requiring aggressive IV hydration and close monitoring of labs to prevent possible decompensation Quality Stroke Does the patient have a stroke diagnosis?: No VTE Prior VTE?: No VTE Risk Level:: Medical - moderate - high VTE Device Contraindication: Treatment Not Indicated VTE Drug Contraindication: N/A - Med Ordered
--- NOTE | 2022-03-20 15:48 | PC.NURSE ---
Pt was incontinent of urine, cleaned up and repositioned @4139
[2022-03-20 16:23] VITALS: BP 140/80; PULSE 103; RESP 19; O2SAT 96
--- NOTE | 2022-03-20 17:52 | PC.NURSE ---
Report given to receiving RN for transport to [facility].
--- NOTE | 2022-03-20 18:06 | PC.NURSE ---
Pt cleaned of large ammounts of urine numerous times this shift last being about 5 min ago. Pt is awaiting transport to floor at this time.
[2022-03-20 19:38] VITALS: BP 156/101; PULSE 107; RESP 17; TEMP 37.7; O2SAT 95
[2022-03-21] VITALS: BP 144/70; PULSE 100; RESP 16; TEMP 36.6; O2SAT 94
[2022-03-21 04:00] VITALS: BP 148/72; PULSE 112; RESP 20; TEMP 37.1; O2SAT 92
[2022-03-21] MEDS: cefTRIAXone sodium 1 GM in 0.9 % Sodium Chloride 50 ML IV (06:16)
[2022-03-21] MEDS: Heparin Sodium,Porcine 5,000 UNIT/ML VIAL 5000 UNIT SUBCUT ×3 (06:16→21:52)
[2022-03-21] MEDS: 0.9 % Sodium Chloride Flush 3 ML SYRINGE IVFLUSH ×2 (06:16→08:57)
[2022-03-21] MEDS: Omeprazole 20 MG CAPSULE.DR PO (06:16)
[2022-03-21] MEDS: 0.9 % Sodium Chloride 1,000 ML 125 ML IVCONT ×2 (06:16→14:44)
[2022-03-21 06:30] LABS: Hematocrit 21.1 % (37.0-47.0); Hemoglobin 7.4 g/dl (12.0-16.0); Mean Corpuscular HGB Conc 35.1 g/dl (31.0-35.0); Mean Corpuscular Hemoglobin 32.3 pg (27.0-33.0); Mean Corpuscular Volume 92.1 fL (80.0-98.0); Mean Platelet Volume 9.1 fL (9.4-12.3); Platelet Count 156 X10*3/uL (160-400); Red Blood Count 2.29 X10*6/uL (4.20-5.50); Red Cell Distribution Width 13.9 % (11.0-16.0); White Blood Count 5.6 X10*3/uL (4.8-10.8)
[2022-03-21 07:16] LABS: Anion Gap 15 (12-20); Blood Urea Nitrogen 39 mg/dL (9-16); Calcium 11.9 mg/dL (8.4-10.2); Carbon Dioxide 24 mmol/L (22-29); Chloride 99 mmol/L (96-108); Estimated Glomerular Filt Rate 26; Glucose Random 92 mg/dL (60-115); Potassium 3.1 mmol/L (3.3-5.1); Sodium 135 mmol/L (135-145)
[2022-03-21 07:38] VITALS: BP 140/70; PULSE 97; RESP 16; TEMP 36.6; O2SAT 93
[2022-03-21] MEDS: Thiamine HCL 100 MG TABLET PO (08:55)
[2022-03-21] MEDS: ARIPiprazole 2 MG TABLET 4 MG PO (08:55)
[2022-03-21] MEDS: Potassium Chloride Packet 20 MEQ PACKET 40 MEQ PO ×2 (08:56→13:52)
[2022-03-21] MEDS: Pramipexole Di-HCL 0.125 MG TABLET PO ×2 (08:56→21:52)
[2022-03-21] MEDS: Furosemide 40 MG/4 ML VIAL IVPUSH (08:56)
[2022-03-21] MEDS: DULoxetine HCl 60 MG CAPSULE.DR PO ×2 (08:56→21:52)
[2022-03-21] MEDS: Ferrous Sulfate 324 MG TABLET.DR PO (08:56)
[2022-03-21] MEDS: busPIRone HCl 5 MG TABLET 15 MG PO ×2 (08:56→21:52)
[2022-03-21] MEDS: Acetaminophen 325 MG TABLET 650 MG PO (09:11)
[2022-03-21 11:08] LABS: IgA 160 mg/dL (70-320); IgG 1223 mg/dL (600-1540); IgM 185 mg/dL (50-300)
[2022-03-21 11:27] VITALS: BMI 25.5
--- NOTE | 2022-03-21 11:33 | MHC.CLN ---
PT WITH INVOLUNTARY WT LOSS OF UNKNOWN ORIGIN PREVIOUS WT HX REVEALS: 81.8KG (12/23/21) 17% SIGNIFICANT WT LOSS X 90DAYS 90.7KG (08/17/21) 25% SIGNIFICANT WT LOSS X 6 MONTHS 95KG (04/09/21) 29% SIGNIFICANT WT LOSS X 1 YEAR DIET RX: REGULAR-APPROPRIATE PT ATE 100% X1 MEAL -NO CHANGE IN APPETITE INCREASED NUTRITION RISK R/T STAGE 1 COCCYX RECOMMEND ADDING ENSURE BID TO INCREASE KCALS SUPP TO PROVIDE 700KCALS, 40G PROTEIN MONITOR PO INTAKE CLOSELY SEE ALSO FULL CLINICAL NUTRITION ASSESSMENT
--- NOTE | 2022-03-21 11:42 | PM.PNNEP ---
Subjective Subjective Date of Service: 03/21/22 Interval history: Seen AM. Events noted. All recent data reviewed. Serum calcium improving Physical Exam Vital Signs: Vital Signs: Last Vital Signs Temp 98 F 03/21/22 07:38 Pulse 97 03/21/22 07:38 Resp 16 03/21/22 07:38 BP 140/70 H 03/21/22 07:38 Pulse Ox 93 03/21/22 07:38 O2 Del Method 03/21/22 07:38 BMI result Body Mass Index 25.5 Const: General: no acute distress Eyes: EOM: EOMs intact bilaterally Neck: Neck: Yes supple Resp: Auscultation: diminished lung sounds Cardio: Rate: regular rate GI: Palpation (GI): Soft to palpation Skin: General skin exam: no rashes or lesions noted Objective Data Labs CBC & Chem 7: 03/21/22 05:40 03/21/22 05:40 Labs: Laboratory Results - last 24 hr 03/19/22 03/21/22 03/21/22 15:54 05:40 05:40 WBC 5.6 RBC 2.29 L Hgb 7.4 L Hct 21.1 L MCV 92.1 MCH 32.3 MCHC 35.1 H RDW 13.9 Plt Count 156 L MPV 9.1 L Absolute Nucleated RBC 0.000 Nucleated RBC % (auto) 0.0 Sodium 135 Potassium 3.1 L Chloride 99 Carbon Dioxide 24 Anion Gap 15 BUN 39 H Creatinine 1.89 H Estim Creat Clear Calc 25.0 Estimated GFR 26 Random Glucose 92 Calcium 11.9 H D IgG Total 1223 IgA Total 160 IgM 185 MADDIE Interpretation SEE NOTE Microbiology Microbiology Results: Microbiology 03/20/22 07:05 Blood - Venous Blood Culture - Preliminary No growth after 24 hours. 03/20/22 07:05 Blood - Venous Blood Culture - Preliminary No growth after 24 hours. Procedures Date of Service Date of Service: 03/21/22 Assessment & Plan Assessment and plan (1) Acute kidney failure: Status: Acute Assessment and Plan: CARMENCITA likely due to ? hypercalcemia resulting in tubular injury; Renal function stable Hypercalcemia - very suspicious of malignancy- Refer to earlier CT chest- ? inflammatory breast cancer Was given Zometa; On 0.9% NaCl and furosemide; Serum calcium improving; W/U in progress Labs AM; Shall closely follow up Time Spent With Patient Time: Total time spent is greater than 50% in coordination of care (as documented) at patient's floor/unit and/or counseling patient: Progress Note: Quality Stroke Does the patient have a stroke diagnosis?: No
[2022-03-21 12:00] VITALS: BP 114/59; PULSE 95; RESP 18; TEMP 36.6; O2SAT 95
--- NOTE | 2022-03-21 13:05 | HO.PM.IMPN ---
Subjective Subjective Date of Service: 03/21/22 Interval History: The patient was seen and evaluated this morning Laying in bed, feels mild improvement and more alert and interactive Hemoglobin dropped to 7.4, no active bleeding noticed Calcium dropped to 11.9 Denies any fever, chills No reported other overnight events. Systemic review: Feels tired and report generalized weakness No chest pain, palpitation No shortness of breath or coughing No abdominal pain, nausea or vomiting No urinary symptoms Physical Exam Vital Signs: Vital Signs: Last Vital Signs Temp 98 F 03/21/22 12:00 Pulse 95 03/21/22 12:00 Resp 18 03/21/22 12:00 BP 114/59 L 03/21/22 12:00 Pulse Ox 95 03/21/22 12:00 O2 Del Method 03/21/22 12:00 BMI result Body Mass Index 25.5 Const: Other: Constitutional : Alert, interactive, not in distress Neck : Normal inspection, Supple Cardiovascular : RRR, no JVP, no lower extremity edema Respiratory : fair bilateral air entry, no crackles, wheezes or rhonchi Gastrointestinal: soft, lax, Normal bowel sounds, Non tender Skin : Warm, Dry Neurological : Alert & oriented to self and place, No focal deficit Objective Data Active Medications Acetaminophen (Acetaminophen 325 Mg Tablet) 650 mg PO Q6H PRN PRN Reason: Pain, Mild (Pain Scale 1-3) Last Admin: 03/21/22 09:11 Dose: 650 mg Documented By: SAVITA Aripiprazole (Aripiprazole 2 Mg Tablet) 4 mg PO DAILY [facility] Last Admin: 03/21/22 08:55 Dose: 4 mg Documented By: SAVITA Buspirone HCl (Buspirone Hcl 5 Mg Tablet) 15 mg PO BID [facility] Last Admin: 03/21/22 08:56 Dose: 15 mg Documented By: SAVITA Duloxetine HCl (Duloxetine Hcl 60 Mg Capsule.) 60 mg PO BID [facility] Last Admin: 03/21/22 08:56 Dose: 60 mg Documented By: SAVITA Ferrous Sulfate (Ferrous Sulfate 324 Mg Tablet.) 324 mg PO DAILY [facility] Last Admin: 03/21/22 08:56 Dose: 324 mg Documented By: SAVITA Fluticasone Propionate (Fluticasone Propionate 100 Mcg Blst.W.Dev) 2 puff INHALE BID [facility] Last Admin: 03/20/22 21:54 Dose: 2 puff Documented By: KARINA Furosemide (Furosemide 40 Mg/4 Ml Vial) 40 mg IVPUSH DAILY [facility]; Protocol Last Admin: 03/21/22 08:56 Dose: 40 mg Documented By: SAVITA Heparin Sodium (Porcine) (Heparin Sodium,Porcine 5,000 Unit/Ml Vial) 5,000 unit SUBCUT Q8H [facility] Last Admin: 03/21/22 06:16 Dose: 5,000 unit Documented By: KARINA Sodium Chloride (Ns) 1,000 mls @ 125 mls/hr IVCONT .Q8H [facility] Last Admin: 03/21/22 06:16 Dose: 125 mls/hr Documented By: KARINA Ceftriaxone Sodium 1 gm/ (Sodium Chloride) 50 mls @ 100 mls/hr IV Q24H [facility] Stop: 03/22/22 07:29 Last Infusion: 03/21/22 08:54 Dose: 0 mls/hr Documented By: SAVITA Omeprazole (Omeprazole 20 Mg Capsule.Dr) 20 mg PO DAILY@0630 [facility] Last Admin: 03/21/22 06:16 Dose: 20 mg Documented By: KARINA Pharmacy Consult (Consult Rx Perform Med Rec) 1 each MISCELLANE ONCE PRN PRN Reason: Consult order Pramipexole Dihydrochloride (Pramipexole Di-Hcl 0.125 Mg Tablet) 0.125 mg PO BID [facility] Last Admin: 03/21/22 08:56 Dose: 0.125 mg Documented By: SAVITA Sodium Chloride (0.9 % Sodium Chloride Flush 3 Ml Syringe) 3 ml IVFLUSH QSHIFT [facility] Last Admin: 03/21/22 08:57 Dose: 3 ml Documented By: SAVITA Thiamine HCl (Thiamine Hcl 100 Mg Tablet) 100 mg PO DAILY [facility] Last Admin: 03/21/22 08:55 Dose: 100 mg Documented By: SAVITA Labs CBC & Chem 7: 03/21/22 05:40 03/21/22 05:40 Labs: Laboratory Results - last 24 hr 03/19/22 03/21/22 03/21/22 15:54 05:40 05:40 MCV 92.1 MCH 32.3 MCHC 35.1 H RDW 13.9 Plt Count 156 L MPV 9.1 L Absolute Nucleated RBC 0.000 Nucleated RBC % (auto) 0.0 Anion Gap 15 Estim Creat Clear Calc 25.0 Estimated GFR 26 Random Glucose 92 Calcium 11.9 H D IgG Total 1223 IgA Total 160 IgM 185 MADDIE Interpretation SEE NOTE Microbiology Microbiology Results: Microbiology 03/20/22 07:05 Blood Culture - Preliminary Blood - Venous No growth after 24 hours. 03/20/22 07:05 Blood Culture - Preliminary Blood - Venous No growth after 24 hours. Assessment and Plan (1) Acute kidney failure: Status: Acute (2) Hypercalcemia: Status: Acute Plan 71F PMH of low PTH hypercalcemia (work up ongoing), depression, gerd, moderate persistent asthma/copd, DM (resolved with weight loss), opiate dependence (no longer on suboxone), HTN, presented with ams, found to have reccurent hypercalcemia Metabolic encephalopathy due to hypercalcemia previously low PTH, pthrp within normal range, no obvious malignancy, though highly suspicious for malignancy due to weight loss and low PTH Trending down to 11.9 Received Zometa Continue normal saline continue Lasix nephrology input appreciated, investigate for underlying malignancy Pending SPEP and UPEP monitor BMP Pending Oncology evaluation for reported left breast lesion acute kidney injury Likely ATN due to dehydration from hypercalcemia and nephrogenic DI Creatinine stable at 1.8 hydrate and monitor BMP Hypokalemia Potassium 3.1 To give replacement and follow BMP history of diabetes resolved after weight loss mood disorder continue Cymbalta, BuSpar, aripiprazole GERD H2 venice, ppi moderate persistent asthma/copd stbale albuterol as needed opiate dependence not on suboxone anymore HTN no longer on hctz monitor for now dvt prophylaxis - hep sq DNR/DNI - per molst The patient will need overnight hospital stay for treatment of severe hypercalcemia, acute kidney injury, requiring aggressive IV hydration and close monitoring of labs to prevent possible decompensation pending Hematology-Oncology evaluation for possible underlying malignancy Quality Stroke Does the patient have a stroke diagnosis?: No VTE Prior VTE?: No VTE Risk Level:: Medical - moderate - high VTE Device Contraindication: Treatment Not Indicated VTE Drug Contraindication: N/A - Med Ordered
[2022-03-21] MEDS: hydrOXYzine HCL 25 MG TABLET PO (15:03)
[2022-03-21] MEDS: Fluticasone Propionate 100 MCG BLST.W.DEV 2 PUFF INHALE ×2 (15:04→21:52)
--- NOTE | 2022-03-21 15:53 | PM.HEMONCCN ---
Subjective - Subjective Chief complaint: Consult for: 1. Hypercalcemia. 2. Breast mass. Patient: known to practice within the last 3 years Consult date: 03/21/22 Primary Care Provider: Lucia Kitchen NP Medical Summary: DIAGNOSIS: 1. HYPERCALCEMIA. 2. BREAST MASS. HPI - Consult Narrative Reason for consult: Consult for: 1. Hypercalcemia. 2. Breast mass. Narrative: Aracelis Plascencia is a pleasant 71 year old lady, admitted on 03/19. She presented with AMS. She had been admitted to [facility] december 2021 for hypercalcemia, found to have low pth. Work up including CT abd and chest did not reveal malignancy. Patient had been at home with [facility]NA. On day of presentation [facility] found patient lethargic and confused so called EMS. Here she was found to be hypercalcemic - corrected of 18.5. CARMENCITA. PAST MEDICAL HISTORY: PMH of low PTH hypercalcemia (work up ongoing), depression, gerd, moderate persistent asthma/copd, DM (resolved with weight loss), opiate dependence (no longer on suboxone), HTN. She was seen back on 12/27: She came in from home for evaluation of fall.? She was recently seen in the emergency department for mechanical fall secondary to lower extremities swelling and edema. Evaluated by case management for possible placement. She was was sent home with home physical therapy and PT at home. She fell in the morning hitting her head, patient does not recall details of falling, she had been vomiting in the emergency department.? Complaining of mild headache. In ED, she became hypoxic to 88%; this corrected with supplemental O2. CTA of the chest failed to demonstrate a PE. CT scan of the abdomen from 12/23 revealed: *No acute cardiopulmonary abnormalities identified. No evidence of pneumonia or active pulmonary edema. *Moderate diffuse aortic calcific atherosclerosis. *Partial visualization of dermal thickening of the left breast. Findings could represent chronic scarring or acute traumatic inflammatory changes. Alternatively, findings could represent cellulitis or possible inflammatory carcinoma. Consider further evaluation with dedicated mammography of the left breast as clinically indicated. *Partially healed subacute fracture of the lateral segment of the left 10th rib. This finding demonstrates evidence of interval progression of healing compared with 08/17/2021. CT abdomen and pelvis: *Moderate focal subcutaneous inflammatory changes along the left flank new compared with 08/17/2021. Mild subcutaneous reticulation adjacent to the right hip. Both findings may represent acute traumatic soft tissue inflammatory changes. *Partially healed, subacute fracture of the lateral segment of the left 10th rib with interval progression of healing compared with 08/17/2021. *Mild diffuse intrahepatic biliary duct dilatation and moderate diffuse prominence of the common bile duct. Findings are slightly increased in prominence compared with 08/17/2021. No cholelithiasis identified though CT has low sensitivity in the detection of cholelithiasis. As clinically indicated, consider further evaluation with right upper quadrant ultrasound. *Mild colonic diverticulosis. No evidence of acute diverticulitis. *Small hiatal hernia. Patient also developed atrial fibrillation with a rapid ventricular response; during multiple episodes of vomiting patient's heart rate went into the 30s and she subsequently converted back to normal sinus rhythm. Multiple imaging including CT of the head CT abdomen pelvis and CTA chest failed to demonstrate any acute pathology. Labs revealed: Calcium that corrects to 10.7. She was admitted for treatment of same. Review of Systems - Constitutional Reports system reviewed and no additional complaints, except as documented, Reports weakness, Reports weight loss - Eyes Reports system reviewed and no additional complaints, except as documented - ENT Reports system reviewed and no additional complaints, except as documented - Cardiovascular Reports system reviewed and no additional complaints, except as documented - Respiratory Reports no additional respiratory complaints - Gastrointestinal Reports system reviewed and no additional complaints, except as documented - Genitourinary Reports no additional female genitourinary complaints - Musculoskeletal Reports system reviewed and no additional complaints, except as documented - Integumentary/Breasts Skin/Breast: Reports no additional skin complaints - Neurologic Reports system reviewed and no additional complaints, except as documented - Psychiatric Reports system reviewed and no additional complaints, except as documented - Endocrine Reports no additional endocrine complaints - Hematologic/Lymphatic Reports system reviewed and no additional complaints, except as documented - Allergic/Immunologic Reports system reviewed and no additional complaints, except as documented PMF Medical History: Medical History (Last Reviewed 03/22/22 @ 10:31 by Chavo Montero MD) Anxiety Asthma-COPD overlap syndrome Depression Diabetes mellitus, type 2 GERD (gastroesophageal reflux disease) New onset atrial fibrillation Functional capacity: uses cane/walker Patient : No Family History: Family History (Last Reviewed 03/22/22 @ 10:31 by Chavo Montero MD) Father Cancer Mother No problems noted. Surgical History: Surgical History (Last Reviewed 03/22/22 @ 10:31 by Chavo Montero MD) History of section History of shoulder surgery Social History: Social History (Last Reviewed 03/22/22 @ 10:31 by Chavo Montero MD) Living Situation History: Household Members: Family Housing: Residential Alcohol History: Unable to assess alcohol history related to: Unable to respond Tobacco History: Patient Tobacco Use Status: Never used Tobacco Advance Directives: Advance Directives Date on File: 12/24/21 Occupation Assessmet: service: No Current occupational status: unemployed Current occupational status: retired Home Medications and Allergies Current Medications: Current Medications Acetaminophen (Acetaminophen 325 Mg Tablet) 650 mg PO Q6H PRN PRN Reason: Pain, Mild (Pain Scale 1-3) Last Admin: 03/21/22 09:11 Dose: 650 mg Aripiprazole (Aripiprazole 2 Mg Tablet) 4 mg PO DAILY [facility] Last Admin: 03/21/22 08:55 Dose: 4 mg Buspirone HCl (Buspirone Hcl 5 Mg Tablet) 15 mg PO BID [facility] Last Admin: 03/21/22 08:56 Dose: 15 mg Duloxetine HCl (Duloxetine Hcl 60 Mg Capsule.Dr) 60 mg PO BID [facility] Last Admin: 03/21/22 08:56 Dose: 60 mg Ferrous Sulfate (Ferrous Sulfate 324 Mg Tablet.Dr) 324 mg PO DAILY [facility] Last Admin: 03/21/22 08:56 Dose: 324 mg Fluticasone Propionate (Fluticasone Propionate 100 Mcg Blst.W.Dev) 2 puff INHALE BID [facility] Last Admin: 03/21/22 15:04 Dose: 2 puff Furosemide (Furosemide 40 Mg/4 Ml Vial) 40 mg IVPUSH DAILY [facility]; Protocol Last Admin: 03/21/22 08:56 Dose: 40 mg Heparin Sodium (Porcine) (Heparin Sodium,Porcine 5,000 Unit/Ml Vial) 5,000 unit SUBCUT Q8H [facility] Last Admin: 03/21/22 13:54 Dose: 5,000 unit Hydroxyzine HCl (Hydroxyzine Hcl 25 Mg Tablet) 25 mg PO Q8H PRN PRN Reason: anxiety/restlessness Last Admin: 03/21/22 15:03 Dose: 25 mg Ceftriaxone Sodium 1 gm/ (Sodium Chloride) 50 mls @ 100 mls/hr IV Q24H [facility] Stop: 03/22/22 07:29 Last Infusion: 03/21/22 08:54 Dose: Infused Omeprazole (Omeprazole 20 Mg Capsule.Dr) 20 mg PO DAILY@0630 [facility] Last Admin: 03/21/22 06:16 Dose: 20 mg Pharmacy Consult (Consult Rx Perform Med Rec) 1 each MISCELLANE ONCE PRN PRN Reason: Consult order Pramipexole Dihydrochloride (Pramipexole Di-Hcl 0.125 Mg Tablet) 0.125 mg PO BID [facility] Last Admin: 03/21/22 08:56 Dose: 0.125 mg Sodium Chloride (0.9 % Sodium Chloride Flush 3 Ml Syringe) 3 ml IVFLUSH QSHIFT [facility] Last Admin: 03/21/22 08:57 Dose: 3 ml Thiamine HCl (Thiamine Hcl 100 Mg Tablet) 100 mg PO DAILY [facility] Last Admin: 03/21/22 08:55 Dose: 100 mg Home Medications Medication Instructions Recorded Confirmed Type buspirone 15 mg tablet 15 mg PO BID 04/17/20 03/19/22 History duloxetine 60 mg capsule,delayed 60 mg PO BID 04/17/20 03/19/22 History release pramipexole 0.125 mg tablet 0.125 mg PO BID 04/26/20 03/19/22 History acetaminophen 500 mg tablet 1,000 mg PO Q8H 12/21/21 01/29/22 History albuterol sulfate 90 mcg/actuation 2 puff inhalation Q6H PRN 12/21/21 03/19/22 History aerosol inhaler shortness of breath or wheezing fluticasone propionate 110 2 puff inhalation BID 12/21/21 03/19/22 History mcg/actuation HFA aerosol inhaler (Flovent HFA) methyl salicylate 30 %-menthol 10 1 appl topical TID PRN Muscle Pain 12/21/21 03/19/22 History % topical cream (Icy Hot) pantoprazole 40 mg tablet,delayed 40 mg PO DAILY 12/21/21 03/19/22 History release sodium chloride 0.65 % nasal spray 2 spray intranasal QID PRN Nasal 12/21/21 03/19/22 History aerosol ([place] Nasal) Congestion thiamine HCl (vitamin B1) 100 mg 100 mg PO DAILY 12/21/21 03/19/22 History tablet aripiprazole 2 mg tablet 4 mg PO DAILY 03/19/22 03/19/22 History ferrous sulfate 325 mg (65 mg 1 tab PO DAILY 03/19/22 03/19/22 History iron) tablet fexofenadine 60 mg tablet 60 mg PO DAILY 03/19/22 03/19/22 History loperamide 2 mg tablet 2 mg PO Q6H PRN Loose Stool 03/19/22 03/19/22 History promethazine 25 mg tablet 25 mg PO QID PRN Nausea And 03/19/22 03/19/22 History Vomiting Allergies Allergy/AdvReac Type Severity Reaction Status Date / Time No Known Allergies Allergy Verified 01/28/22 02:17 [No Known Allergies*] Physical Exam Vital signs: Vital Signs Temp 98 F 03/21/22 12:00 Pulse 95 03/21/22 12:00 Resp 18 03/21/22 12:00 BP 114/59 L 03/21/22 12:00 Pulse Ox 95 03/21/22 12:00 O2 Del Method 03/21/22 12:00 Intake & Output 03/20/22 03/21/22 03/21/22 18:59 06:59 18:59 Intake Total 1033.333 / 3475.833 2442.5 / 3475.833 250 / 250 Balance 1033.333 / 3475.833 2442.5 / 3475.833 250 / 250 Intake: Intake, Oral Amount 480 / 480 200 / 200 Intake, IV Amount 1033.333 / 2995.833 1962.5 / 2995.833 50 / 50 cefTRIAXone sodium 1 gm In 0.9 50 / 50 50 / 50 % Sodium Chloride 50 ml @ 100 mls/hr IV Q24H [facility] Rx#: [id number] 0.9 % Sodium Chloride 1,000 ml 983.333 / 2945.833 1962.5 / 2945.833 0 / 0 @ 125 mls/hr IVCONT .Q8H [facility] Rx #:[id number] Other: Breakfast % Eaten 100% Lunch % Eaten 100% 100% Number of Incontinent Voids 3 Number of Unmeasured Voids 5 2 Number of Bowel Movements 0 Urine Color Yellow Weight 67.6 kg Weight 67.6 kg - Constitutional Present: mild distress - Routine HEENT Exam Head: Present: normal inspection ENT: Present: mucous membranes moist - Routine Neck Exam Present: supple - Routine Respiratory Exam Present: CTAB - Routine Cardiovascular Exam Cardiovascular: Present: RRR, S1, S2 - Routine Abdominal Exam Present: normal bowel sounds, nontender. Absent: organomegaly Hem/Onc Consult Result - Labs CBC & Chem 7: 03/24/22 05:50 03/26/22 12:55 Labs: Short CBC 03/21/22 Range/Units 05:40 WBC 5.6 (4.8-10.8) X10*3/uL Hgb 7.4 L (12.0-16.0) g/dl Hct 21.1 L (37.0-47.0) % Plt Count 156 L (160-400) X10*3/uL BMP 03/21/22 05:40 Sodium 135 Potassium 3.1 L Chloride 99 Carbon Dioxide 24 BUN 39 H Creatinine 1.89 H Calcium 11.9 H D Assessment and Plan Patient Active problem list reviewed?: Yes (1) Hypercalcemia Status: Acute Assessment and plan: 71-year-old lady who presented with a fall at home. She did complain of nausea, vomiting and shortness of breath. She was noted to be hypercalcemic. CT chest revealed no PE however did raise concern for left breast thickening/mass. DIFFERENTIAL DIAGNOSIS: 1. Related to diuretics: She was on hydrochlorothiazide. 2. Primary hyperthyroidism. 3. Multiple myeloma: 4 hypercalcemia of excessive vitamin D intake. 5. Malignancy related hypercalcemia. Checked iPTH. This came back low. Further workup is in progress. SIEP was checked and is within normal limits.. Patient was supposed to have a mammogram as an outpatient. That has not happened. Patient has social issues. Will make further plans based upon the above results. PLAN: I will see if a biopsy can be obtained as an inpatient. For now, agree with IV hydration with normal saline. Agree with IV Lasix to increase calcium excretion. She recieved IV bisphosphonate, Zometa on 03/19, for more rapid correction of the hypercalcemia. Hold vitamin D supplementation. Thank you, I will follow along with you, Cc: - Time Spent With Patient Time Spent with Patient (in minutes): 30
[2022-03-21 16:00] VITALS: BP 131/67; PULSE 101; RESP 17; TEMP 36.7; O2SAT 98
[2022-03-21 19:37] VITALS: BP 169/88; PULSE 109; RESP 20; TEMP 37.1; O2SAT 96
[2022-03-21 23:47] LABS: Prot Elec - Albumin 3.1 g/dL (3.8-4.8); Prot Elec - Alpha1 0.4 g/dL (0.2-0.3); Prot Elec - Alpha2 0.8 g/dL (0.5-0.9); Prot Elec - Beta 1 0.3 g/dL (0.4-0.6); Prot Elec - Beta 2 0.3 g/dL (0.2-0.5); Prot Elec - Gamma 1.2 g/dL (0.8-1.7); Prot Elec - Total Protein 6.1 g/dL (6.1-8.1)
[2022-03-22] VITALS (7 sets, daily range): BP systolic 103–152; BP diastolic 61–84; PULSE 75–97; RESP 16–20; TEMP 36.1–37.4; O2SAT 94–97
[2022-03-22] MEDS: Omeprazole 20 MG CAPSULE.DR PO (06:12)
[2022-03-22] MEDS: cefTRIAXone sodium 1 GM in 0.9 % Sodium Chloride 50 ML IV (06:12)
[2022-03-22] MEDS: Heparin Sodium,Porcine 5,000 UNIT/ML VIAL 5000 UNIT SUBCUT ×3 (06:12→22:21)
[2022-03-22 08:22] LABS: Hemoglobin 7.3 g/dl (12.0-16.0); Mean Corpuscular Hemoglobin 32.6 pg (27.0-33.0); Mean Corpuscular Volume 90.6 fL (80.0-98.0); Mean Platelet Volume 9.2 fL (9.4-12.3); Platelet Count 152 X10*3/uL (160-400); Red Blood Count 2.24 X10*6/uL (4.20-5.50); Red Cell Distribution Width 13.7 % (11.0-16.0); White Blood Count 4.7 X10*3/uL (4.8-10.8)
[2022-03-22] MEDS: Thiamine HCL 100 MG TABLET PO (08:25)
[2022-03-22] MEDS: busPIRone HCl 5 MG TABLET 15 MG PO ×2 (08:25→19:47)
[2022-03-22] MEDS: ARIPiprazole 2 MG TABLET 4 MG PO (08:25)
[2022-03-22] MEDS: Pramipexole Di-HCL 0.125 MG TABLET PO ×2 (08:25→19:48)
[2022-03-22] MEDS: DULoxetine HCl 60 MG CAPSULE.DR PO ×2 (08:26→19:48)
[2022-03-22] MEDS: Ferrous Sulfate 324 MG TABLET.DR PO (08:26)
[2022-03-22] MEDS: 0.9 % Sodium Chloride Flush 3 ML SYRINGE IVFLUSH ×2 (08:28→19:47)
[2022-03-22 08:34] LABS: Hematocrit 20.3 % (37.0-47.0)
[2022-03-22 08:52] LABS: Anion Gap 15 (12-20); Blood Urea Nitrogen 34 mg/dL (9-16); Calcium 11.5 mg/dL (8.4-10.2); Carbon Dioxide 22 mmol/L (22-29); Chloride 99 mmol/L (96-108); Creatinine Clr Calc Pharmacy 27.2; Estimated Glomerular Filt Rate 29; Glucose Random 101 mg/dL (60-115); Potassium 3.1 mmol/L (3.3-5.1); Sodium 133 mmol/L (135-145)
--- NOTE | 2022-03-22 10:08 | P.CONGS_ITS ---
History of Present Illness Consult details Consult date: 03/22/22 Requesting physician: Satnam Perez Narrative: 71-year-old female patient presenting with hypercalcemia with several repeat admissions found to have a mass in the left breast on recent CT scan. Patient was scheduled for mammogram but has never followed through with the study. She denies any pain or palpable mass in either breast although she is not sure she has ever checked. She does report her sister had breast cancer but denies breast cancer in her mother. She denies a previous history of breast problems or breast surgery. Review of Systems Review of Systems: Yes Unobtainable due to mental status PMFSH Past Medical History Medical History Anxiety Asthma-COPD overlap syndrome Depression Diabetes mellitus, type 2 GERD (gastroesophageal reflux disease) New onset atrial fibrillation Functional capacity: uses cane/walker Family History Family History Father Cancer Mother No problems noted. Surgical History Surgical History History of section History of shoulder surgery Social History Social History Household Members: Family Housing: Prison Unable to assess alcohol history related to: Unable to respond Alcohol intake: former Patient Tobacco Use Status: Never used Tobacco Advance Directives Date on File: 12/24/21 service: No Current occupational status: unemployed and retired Meds Allergies Allergy/AdvReac Type Severity Reaction Status Date / Time No Known Allergies Allergy Verified 01/28/22 02:17 [No Known Allergies*] Active Medications: Current Medications Acetaminophen (Acetaminophen 325 Mg Tablet) 650 mg PO Q6H PRN PRN Reason: Pain, Mild (Pain Scale 1-3) Last Admin: 03/21/22 09:11 Dose: 650 mg Aripiprazole (Aripiprazole 2 Mg Tablet) 4 mg PO DAILY [facility] Last Admin: 03/22/22 08:25 Dose: 4 mg Buspirone HCl (Buspirone Hcl 5 Mg Tablet) 15 mg PO BID [facility] Last Admin: 03/22/22 08:25 Dose: 15 mg Docusate Sodium (Docusate Sodium 100 Mg Capsule) 100 mg PO BID [facility] Duloxetine HCl (Duloxetine Hcl 60 Mg Capsule.) 60 mg PO BID [facility] Last Admin: 03/22/22 08:26 Dose: 60 mg Ferrous Sulfate (Ferrous Sulfate 324 Mg Tablet.) 324 mg PO DAILY [facility] Last Admin: 03/22/22 08:26 Dose: 324 mg Fluticasone Propionate (Fluticasone Propionate 100 Mcg Blst.W.Dev) 2 puff INHALE BID [facility] Last Admin: 03/21/22 21:52 Dose: 2 puff Furosemide (Furosemide 40 Mg/4 Ml Vial) 40 mg IVPUSH DAILY [facility]; Protocol Last Admin: 03/21/22 08:56 Dose: 40 mg Heparin Sodium (Porcine) (Heparin Sodium,Porcine 5,000 Unit/Ml Vial) 5,000 unit SUBCUT Q8H [facility] Last Admin: 03/22/22 06:12 Dose: 5,000 unit Hydroxyzine HCl (Hydroxyzine Hcl 25 Mg Tablet) 25 mg PO Q8H PRN PRN Reason: anxiety/restlessness Last Admin: 03/21/22 15:03 Dose: 25 mg Omeprazole (Omeprazole 20 Mg Capsule.) 20 mg PO DAILY@0630 [facility] Last Admin: 03/22/22 06:12 Dose: 20 mg Pharmacy Consult (Consult Rx Perform Med Rec) 1 each MISCELLANE ONCE PRN PRN Reason: Consult order Pramipexole Dihydrochloride (Pramipexole Di-Hcl 0.125 Mg Tablet) 0.125 mg PO BID [facility] Last Admin: 03/22/22 08:25 Dose: 0.125 mg Sodium Chloride (0.9 % Sodium Chloride Flush 3 Ml Syringe) 3 ml IVFLUSH QSHIFT [facility] Last Admin: 03/22/22 08:28 Dose: 3 ml Thiamine HCl (Thiamine Hcl 100 Mg Tablet) 100 mg PO DAILY [facility] Last Admin: 03/22/22 08:25 Dose: 100 mg Home Medications Medication Instructions Recorded Confirmed Last Taken Type buspirone 15 mg tablet 15 mg PO BID 04/17/20 03/19/22 Unknown History duloxetine 60 mg capsule,delayed 60 mg PO BID 04/17/20 03/19/22 Unknown History release pramipexole 0.125 mg tablet 0.125 mg PO BID 04/26/20 03/19/22 Unknown History acetaminophen 500 mg tablet 1,000 mg PO Q8H 12/21/21 01/29/22 Unknown History albuterol sulfate 90 mcg/actuation 2 puff inhalation Q6H PRN 12/21/21 03/19/22 Unknown History aerosol inhaler shortness of breath or wheezing cholecalciferol (vitamin D3) 125 125 mcg PO DAILY 12/21/21 03/19/22 Unknown History mcg (5,000 unit) capsule fluticasone propionate 110 2 puff inhalation BID 12/21/21 03/19/22 Unknown Hist ory mcg/actuation HFA aerosol inhaler (Flovent HFA) methyl salicylate 30 %-menthol 10 1 appl topical TID PRN Muscle Pain 12/21/21 03/19/22 Unknown History % topical cream (Icy Hot) wopbonjr-yih-oslnz acid 0.4 1 tab PO DAILY 12/21/21 03/19/22 Unknown History mg-lycopene 300 mcg-lutein 250 mcg tablet (Cerovite Senior) pantoprazole 40 mg tablet,delayed 40 mg PO DAILY 12/21/21 03/19/22 Unknown History release sodium chloride 0.65 % nasal spray 2 spray intranasal QID PRN Nasal 12/21/21 03/19/22 Unknown History aerosol ([place] Nasal) Congestion thiamine HCl (vitamin B1) 100 mg 100 mg PO DAILY 12/21/21 03/19/22 Unknown History tablet aripiprazole 2 mg tablet 4 mg PO DAILY 03/19/22 03/19/22 Unknown History ferrous sulfate 325 mg (65 mg 1 tab PO DAILY 03/19/22 03/19/22 Unknown History iron) tablet fexofenadine 60 mg tablet 60 mg PO DAILY 03/19/22 03/19/22 Unknown History loperamide 2 mg tablet 2 mg PO Q6H PRN Loose Stool 03/19/22 03/19/22 Unknown History promethazine 25 mg tablet 25 mg PO QID PRN Nausea And 03/19/22 03/19/22 Unknown History Vomiting Physical Exam Vital Signs: Vital Signs: Last Vital Signs Temp 97.2 F 03/22/22 07:45 Pulse 92 03/22/22 07:45 Resp 18 03/22/22 07:45 BP 145/84 H 03/22/22 07:45 Pulse Ox 94 03/22/22 07:45 O2 Del Method 03/22/22 07:45 BMI result Body Mass Index 25.5 Const: General: lethargic and tired appearing Nutritional Appearance: thin Orientation/consciousness: lethargic HEENT: Head: Yes normocephalic and Yes atraumatic Chest: Other: Left breast is pendulous with no overlying skin changes. Nipple discharge and nipple retraction identified. No definite palpable mass appreciated to my examination. No enlarged lymph nodes. Right breast: No palpable mass, skin change, nipple discharge, or enlarged lymph nodes. GI: Other: Soft and nondistended, nontender to palpation. Skin: Other: Warm, dry, no rash Results Labs Result diagrams: 03/22/22 08:12 03/22/22 08:12 Labs: Abnormal lab results 03/19/22 03/22/22 03/22/22 Range/Units 15:54 08:12 08:12 WBC 4.7 L (4.8-10.8) X10*3/uL RBC 2.24 L (4.20-5.50) X10*6/uL Hgb 7.3 L (12.0-16.0) g/dl Hct 20.3 L* (37.0-47.0) % MCHC 36.0 H (31.0-35.0) g/dl Plt Count 152 L (160-400) X10*3/uL MPV 9.2 L (9.4-12.3) fL Sodium 133 L (135-145) mmol/L Potassium 3.1 L (3.3-5.1) mmol/L BUN 34 H (9-16) mg/dL Creatinine 1.74 H (0.5-1.4) mg/dL Calcium 11.5 H (8.4-10.2) mg/dL Albumin (PEP) 3.1 L (3.8-4.8) g/dL Wpnnv-0-Cqptvacev 0.4 H (0.2-0.3) g/dL Geng-3-Aehbhbpm 0.3 L (0.4-0.6) g/dL Short CBC 03/22/22 Range/Units 08:12 WBC 4.7 L (4.8-10.8) X10*3/uL Hgb 7.3 L (12.0-16.0) g/dl Hct 20.3 L* (37.0-47.0) % Plt Count 152 L (160-400) X10*3/uL BMP 03/22/22 08:12 Sodium 133 L Potassium 3.1 L Chloride 99 Carbon Dioxide 22 BUN 34 H Creatinine 1.74 H Calcium 11.5 H Urine 03/19/22 Range/Units 12:02 Urine Color Yellow Urine Appearance Clear Urine pH 6.5 (5.0-9.0) Ur Specific [place] 1.010 (1.005-1.025) Urine Protein Negative (Neg-Trace) mg/dL Urine Glucose (UA) Negative (Negative) mg/dL All other labs normal. Assessment and Plan (1) Hypercalcemia: Status: Acute (2) Breast mass, left: Status: Acute Plan 71-year-old female patient found to have a left breast mass on recent CT scan. No available mammogram is found for review. I am unable to palpate a mass on my examination today. I have taken the liberty of ordering a mammogram and ultrasound to better workup this left breast mass. Ideally if it identified by ultrasound, an ultrasound-guided core biopsy would be the best option for diagnosis. I discussed this with the patient she agrees with the plan. Procedures Date of Service Date of Service: 03/22/22
[2022-03-22] MEDS: Docusate Sodium 100 MG CAPSULE PO ×2 (10:14→19:47)
[2022-03-22] MEDS: Lactulose 20 GM/30 ML SOLUTION PO (10:14)
[2022-03-22] MEDS: Furosemide 40 MG/4 ML VIAL IVPUSH (10:14)
[2022-03-22] MEDS: Fluticasone Propionate 100 MCG BLST.W.DEV 2 PUFF INHALE (10:15)
--- NOTE | 2022-03-22 11:54 | MHC.CLN ---
F/U PO INTAKE 75-100% DIET RX: REGULAR-APPROPRIATE INCREASED NUTRITION RISK R/T STAGE 1 COCCYX AND RECENT WT LOSS PT RECEIVING ENSURE BID TO INCREASE KCALS PROVIDES 700KCALS, 40G PROTEIN MONITOR PO INTAKE CLOSELY
[2022-03-22] MEDS: Potassium Chloride Packet 20 MEQ PACKET 40 MEQ PO ×2 (12:22→14:28)
[2022-03-22] MEDS: 0.9 % Sodium Chloride 1,000 ML 100 ML IVCONT (12:22)
[2022-03-22] MEDS: Acetaminophen 325 MG TABLET 650 MG PO (12:30)
--- NOTE | 2022-03-22 13:27 | HO.PM.IMPN ---
Subjective Subjective Date of Service: 03/22/22 Interval History: The patient was seen and evaluated this morning Laying in bed, feels mild improvement and more alert and interactive Hemoglobin at 7.3, no active bleeding noticed Calcium dropped to 11.5 Denies any fever, chills No reported other overnight events. Systemic review: Feels tired and report generalized weakness No chest pain, palpitation No shortness of breath or coughing No abdominal pain, nausea or vomiting No urinary symptoms Physical Exam Vital Signs: Vital Signs: Last Vital Signs Temp 98.5 F 03/22/22 11:15 Pulse 90 03/22/22 11:15 Resp 18 03/22/22 11:15 BP 138/77 03/22/22 11:15 Pulse Ox 95 03/22/22 11:15 O2 Del Method 03/22/22 11:15 BMI result Body Mass Index 25.5 Const: Other: Constitutional : Alert, interactive, not in distress Neck : Normal inspection, Supple Cardiovascular : RRR, no JVP, no lower extremity edema Respiratory : fair bilateral air entry, no crackles, wheezes or rhonchi Gastrointestinal: soft, lax, Normal bowel sounds, Non tender Skin : Warm, Dry Neurological : Alert & oriented to self and place, No focal deficit Objective Data Active Medications Acetaminophen (Acetaminophen 325 Mg Tablet) 650 mg PO Q6H PRN PRN Reason: Pain, Mild (Pain Scale 1-3) Last Admin: 03/22/22 12:30 Dose: 650 mg Documented By: NAVJOT Aripiprazole (Aripiprazole 2 Mg Tablet) 4 mg PO DAILY [facility] Last Admin: 03/22/22 08:25 Dose: 4 mg Documented By: NAVJOT Buspirone HCl (Buspirone Hcl 5 Mg Tablet) 15 mg PO BID [facility] Last Admin: 03/22/22 08:25 Dose: 15 mg Documented By: NAVJOT Docusate Sodium (Docusate Sodium 100 Mg Capsule) 100 mg PO BID [facility] Last Admin: 03/22/22 10:14 Dose: 100 mg Documented By: NAVJOT Duloxetine HCl (Duloxetine Hcl 60 Mg Capsule.) 60 mg PO BID [facility] Last Admin: 03/22/22 08:26 Dose: 60 mg Documented By: NAVJOT Ferrous Sulfate (Ferrous Sulfate 324 Mg Tablet.) 324 mg PO DAILY [facility] Last Admin: 03/22/22 08:26 Dose: 324 mg Documented By: NAVJOT Fluticasone Propionate (Fluticasone Propionate 100 Mcg Blst.W.Dev) 2 puff INHALE BID [facility] Last Admin: 03/22/22 10:15 Dose: 2 puff Documented By: NAVJOT Furosemide (Furosemide 40 Mg/4 Ml Vial) 40 mg IVPUSH DAILY [facility]; Protocol Last Admin: 03/22/22 10:14 Dose: 40 mg Documented By: NAVJOT Heparin Sodium (Porcine) (Heparin Sodium,Porcine 5,000 Unit/Ml Vial) 5,000 unit SUBCUT Q8H [facility] Last Admin: 03/22/22 06:12 Dose: 5,000 unit Documented By: KARINA Hydroxyzine HCl (Hydroxyzine Hcl 25 Mg Tablet) 25 mg PO Q8H PRN PRN Reason: anxiety/restlessness Last Admin: 03/21/22 15:03 Dose: 25 mg Documented By: SAVITA Sodium Chloride (Ns) 1,000 mls @ 100 mls/hr IVCONT .Q10H [facility] Last Admin: 03/22/22 12:22 Dose: 100 mls/hr Documented By: NAVJOT Omeprazole (Omeprazole 20 Mg Capsule.Dr) 20 mg PO DAILY@0630 [facility] Last Admin: 03/22/22 06:12 Dose: 20 mg Documented By: KARINA Pharmacy Consult (Consult Rx Perform Med Rec) 1 each MISCELLANE ONCE PRN PRN Reason: Consult order Potassium Chloride (Potassium Chloride Packet 20 Meq Packet) 40 meq PO Q2H [facility] Stop: 03/22/22 13:31 Last Admin: 03/22/22 12:22 Dose: 40 meq Documented By: NAVJOT Pramipexole Dihydrochloride (Pramipexole Di-Hcl 0.125 Mg Tablet) 0.125 mg PO BID [facility] Last Admin: 03/22/22 08:25 Dose: 0.125 mg Documented By: NAVJOT Sodium Chloride (0.9 % Sodium Chloride Flush 3 Ml Syringe) 3 ml IVFLUSH QSHIFT [facility] Last Admin: 03/22/22 08:28 Dose: 3 ml Documented By: NAVJOT Thiamine HCl (Thiamine Hcl 100 Mg Tablet) 100 mg PO DAILY [facility] Last Admin: 03/22/22 08:25 Dose: 100 mg Documented By: NAVJOT Labs CBC & Chem 7: 03/22/22 08:12 03/22/22 08:12 Labs: Laboratory Results - last 24 hr 03/19/22 03/22/22 03/22/22 15:54 08:12 08:12 MCV 90.6 MCH 32.6 MCHC 36.0 H RDW 13.7 Plt Count 152 L MPV 9.2 L Absolute Nucleated RBC 0.000 Nucleated RBC % (auto) 0.0 Anion Gap 15 Estim Creat Clear Calc 27.2 Estimated GFR 29 Random Glucose 101 Calcium 11.5 H Total Protein (PEP) 6.1 Albumin (PEP) 3.1 L Cpisw-4-Khciwkkyi 0.4 H Hcanl-3-Umuhdgokw 0.8 Szzm-5-Gcgbvmfi 0.3 L Iydh-4-Fgcgoech 0.3 Gamma Globulins 1.2 Abnorm Protein Band 1 TNP Abnorm Protein Band 2 TNP Abnorm Protein Band 3 TNP PEP Interpretation SEE NOTE Microbiology Microbiology Results: Microbiology 03/20/22 07:05 Blood Culture - Preliminary Blood - Venous No growth after 48 hours. 03/20/22 07:05 Blood Culture - Preliminary Blood - Venous No growth after 48 hours. Assessment and Plan (1) Acute kidney failure: Status: Acute (2) Hypercalcemia: Status: Acute (3) Hypokalemia: Status: Acute (4) Breast mass, left: Status: Acute Plan 71F PMH of low PTH hypercalcemia (work up ongoing), depression, gerd, moderate persistent asthma/copd, DM (resolved with weight loss), opiate dependence (no longer on suboxone), HTN, presented with ams, found to have reccurent hypercalcemia Metabolic encephalopathy due to hypercalcemia previously low PTH, pthrp within normal range, no obvious malignancy, though highly suspicious for malignancy due to weight loss and low PTH Trending down to 11.5 Received Zometa Continue normal saline continue Lasix nephrology input appreciated, investigate for underlying malignancy Pending SPEP and UPEP monitor BMP Oncology input appreciated, get left breast lesion biopsy Breast lesion Noticed on CT scan Surgery team input appreciated, to do a core biopsy if masses seen on ultrasound next [place] to do an ultrasound acute kidney injury Likely ATN due to dehydration from hypercalcemia and nephrogenic DI Creatinine improving at 1.7 hydrate and monitor BMP Hypokalemia Potassium 3.1 To give replacement and follow BMP Hyponatremia Sodium 133, mild Likely secondary to IV fluids Monitor BMP history of diabetes resolved after weight loss mood disorder continue Cymbalta, BuSpar, aripiprazole GERD H2 venice, ppi moderate persistent asthma/copd stbale albuterol as needed opiate dependence not on suboxone anymore HTN no longer on hctz monitor for now dvt prophylaxis - hep sq DNR/DNI - per molst The patient will need overnight hospital stay for treatment of severe hypercalcemia, acute kidney injury, requiring aggressive IV hydration and close monitoring of labs to prevent possible decompensation pending possible surgical biopsy for possible underlying malignancy and safe discharge plan Quality Stroke Does the patient have a stroke diagnosis?: No VTE Prior VTE?: No VTE Risk Level:: Medical - moderate - high VTE Device Contraindication: Treatment Not Indicated VTE Drug Contraindication: N/A - Med Ordered
[2022-03-22 15:04] LABS: OBS Int Ctl Valid YES; OBS1 NEGATIVE (NEGATIVE)
--- NOTE | 2022-03-22 16:07 | MHC.CM.PN ---
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 NUMBER [phone] AND ASK FOR THE PACKING AND STAMPING MACHINE OPERATOR PROVIDER. SHE WILL LEAVE A NOTE THAT IT IS ALREADY AUTHORIZED. OF NOTE: PT HAS AN UPCOMING FOLLOW UP APPT AT [facility] 04/04/22 AND IS SUPPOSED TO HAVE A MODIFIED BARIUM SWALLOW DONE ON 04/01/22
--- NOTE | 2022-03-22 16:33 | PM.PNNEP ---
Subjective Subjective Date of Service: 03/22/22 Interval history: Resting in recliner mild improvement and more alert and interactive Hemoglobin at 7.3, no active bleeding noticed Calcium dropped to 11.5 Physical Exam Vital Signs: Vital Signs: Last Vital Signs Temp 97.8 F 03/22/22 15:13 Pulse 90 03/22/22 15:13 Resp 18 03/22/22 15:13 BP 103/61 03/22/22 15:13 Pulse Ox 94 03/22/22 15:13 O2 Del Method 03/22/22 15:13 BMI result Body Mass Index 25.5 Const: Other: Constitutional : Alert, interactive, not in distress Neck : Normal inspection, Supple Cardiovascular : RRR, no JVP, no lower extremity edema Respiratory : fair bilateral air entry, no crackles, wheezes or rhonchi Gastrointestinal: soft, lax, Normal bowel sounds, Non tender Skin : Warm, Dry Neurological : Alert & oriented to self and place, No focal deficit General: cooperative, no acute distress, lethargic and tired appearing Nutritional Appearance: average body habitus and thin Orientation/consciousness: lethargic and Other orientation findings (Disoriented to times) Limitations: no limitations HEENT: Head: Yes normal to inspection, Yes normocephalic and Yes atraumatic General nose exam: Normal external nose present Face and sinus: Yes normal facial exam Mouth: Normal oral and palatal mucosa present Throat: Yes posterior oropharynx normal Eyes: EOM: EOMs intact bilaterally Neck: Neck: Yes normal visual inspection, Yes full ROM, Yes no meningeal signs and Yes supple Thyroid: Thyroid normal Chest: Other: Left breast is pendulous with no overlying skin changes. Nipple discharge and nipple retraction identified. No definite palpable mass appreciated to my examination. No enlarged lymph nodes. Right breast: No palpable mass, skin change, nipple discharge, or enlarged lymph nodes. Chest palpation & inspection: normal inspection of the chest Resp: Effort & Inspection: normal respiratory effort Auscultation: clear to auscultation bilaterally and diminished lung sounds Cardio: Jugular venous distension: no JVD Rate: regular rate Rhythm: regular rhythm GI: Other: Soft and nondistended, nontender to palpation. Inspection: Yes normal to inspection Palpation (GI): Soft to palpation, not firm, nontender and no guarding Skin: Other: Warm, dry, no rash General skin exam: no rashes or lesions noted, elasticity normal and turgor normal Lesions: no lesions Rashes: no rashes Neuro: General: moves all extremities, no meningeal signs and no focal motor deficits Cranial nerves: Yes CN's II-XII intact bilaterally Objective Data Labs CBC & Chem 7: 03/22/22 08:12 03/22/22 08:12 Labs: Laboratory Results - last 24 hr 03/19/22 03/22/22 03/22/22 15:54 08:12 08:12 WBC 4.7 L RBC 2.24 L Hgb 7.3 L Hct 20.3 L* MCV 90.6 MCH 32.6 MCHC 36.0 H RDW 13.7 Plt Count 152 L MPV 9.2 L Absolute Nucleated RBC 0.000 Nucleated RBC % (auto) 0.0 Sodium 133 L Potassium 3.1 L Chloride 99 Carbon Dioxide 22 Anion Gap 15 BUN 34 H Creatinine 1.74 H Estim Creat Clear Calc 27.2 Estimated GFR 29 Random Glucose 101 Calcium 11.5 H Total Protein (PEP) 6.1 Albumin (PEP) 3.1 L Jqkzq-2-Pkqwzvnfr 0.4 H Phzzi-2-Dyuajwtvh 0.8 Pksv-7-Guwuwqzm 0.3 L Thfy-2-Cvxouoxb 0.3 Gamma Globulins 1.2 Abnorm Protein Band 1 TNP Abnorm Protein Band 2 TNP Abnorm Protein Band 3 TNP PEP Interpretation SEE NOTE Stool Occult Blood 03/22/22 14:31 WBC RBC Hgb Hct MCV MCH MCHC RDW Plt Count MPV Absolute Nucleated RBC Nucleated RBC % (auto) Sodium Potassium Chloride Carbon Dioxide Anion Gap BUN Creatinine Estim Creat Clear Calc Estimated GFR Random Glucose Calcium Total Protein (PEP) Albumin (PEP) Iewvu-2-Kctepgjiw Tfqug-4-Pkuxwpvkf Hxkb-3-Ttcdxnzc Rdkl-8-Evjohvik Gamma Globulins Abnorm Protein Band 1 Abnorm Protein Band 2 Abnorm Protein Band 3 PEP Interpretation Stool Occult Blood NEGATIVE Microbiology Microbiology Results: Microbiology 03/20/22 07:05 Blood - Venous Blood Culture - Preliminary No growth after 48 hours. 03/20/22 07:05 Blood - Venous Blood Culture - Preliminary No growth after 48 hours. Procedures Date of Service Date of Service: 03/22/22 Assessment & Plan Assessment and plan (1) Acute kidney failure: Status: Acute (2) Hypercalcemia: Status: Acute Assessment and Plan: Pt with CARMENCITA in the setting of severe hypercalcemia; etiology unclear: ?maligancy or myeloma-await free kappa: lambda and immunofixation and chest CT. Calcium better after zometa. CARMENCITA likely due to ATN from hypercalemia. Kidneys normal by CT in December (3) Hypokalemia: Status: Acute Assessment and Plan: check urine K, replete; now off HCTZ (4) Breast mass, left: Status: Acute Plan Await breast lesion biopsy Await immunofix and free light chains Renal US Urine K Replete K Do not resume HCTZ at discharge Time Spent With Patient Time: Total time spent is greater than 50% in coordination of care (as documented) at patient's floor/unit and/or counseling patient: Progress Note: Quality Stroke Does the patient have a stroke diagnosis?: No
[2022-03-23] VITALS (8 sets, daily range): BP systolic 134–164; BP diastolic 69–82; PULSE 78–97; RESP 17–20; TEMP 36.1–37.2; O2SAT 94–99
[2022-03-23] MEDS: 0.9 % Sodium Chloride 1,000 ML 100 ML IVCONT ×3 (01:19→20:24)
[2022-03-23] MEDS: Omeprazole 20 MG CAPSULE.DR PO (05:56)
[2022-03-23] MEDS: Heparin Sodium,Porcine 5,000 UNIT/ML VIAL 5000 UNIT SUBCUT ×3 (05:56→22:26)
[2022-03-23 07:14] LABS: Hematocrit 23.2 % (37.0-47.0); Hemoglobin 8.2 g/dl (12.0-16.0); Mean Corpuscular HGB Conc 35.3 g/dl (31.0-35.0); Mean Corpuscular Hemoglobin 32.4 pg (27.0-33.0); Mean Corpuscular Volume 91.7 fL (80.0-98.0); Mean Platelet Volume 9.4 fL (9.4-12.3); Platelet Count 163 X10*3/uL (160-400); Red Blood Count 2.53 X10*6/uL (4.20-5.50); Red Cell Distribution Width 13.7 % (11.0-16.0); White Blood Count 4.9 X10*3/uL (4.8-10.8)
[2022-03-23 07:55] LABS: Alanine Aminotransferase 25 U/L (0-31); Alkaline Phosphatase 88 U/L (39-117); Anion Gap 14 (12-20); Aspartate Amino Transferase 20 U/L (5-31); Bilirubin Direct 0.2 mg/dL (0.0-0.5); Bilirubin Total 0.4 mg/dL (0.0-1.0); Blood Urea Nitrogen 29 mg/dL (9-16); Calcium 11.4 mg/dL (8.4-10.2); Carbon Dioxide 22 mmol/L (22-29); Chloride 99 mmol/L (96-108); Creatinine Clr Calc Pharmacy 28.8; Estimated Glomerular Filt Rate 31; Glucose Random 100 mg/dL (60-115); Potassium 3.3 mmol/L (3.3-5.1); Sodium 132 mmol/L (135-145)
--- NOTE | 2022-03-23 08:11 | PM.HEMONCPN ---
Medical Summary - Medical Summary Date of Service: 03/23/22 Chief complaint: F/U for: Hypercalcemia. Medical Summary: DIAGNOSIS: 1. HYPERCALCEMIA. 2. BREAST MASS. Interval History Interval history: Aracelis Plascencia is a pleasant 71 year old lady, she is feeling a bit better. She still feels generalized weakness. No headache no dizziness. She denies chest pain or trouble breathing. PRESENTING HISTORY: She has been admitted on 03/19. She presented with AMS. She had been admitted to [facility] december 2021 for hypercalcemia, found to have low pth. Work up including CT abd and chest did not reveal malignancy. Patient had been at home with VNA. On day of presentation VNA found patient lethargic and confused so called EMS. Here she was found to be hypercalcemic - corrected of 18.5. CARMENCITA. PAST MEDICAL HISTORY: PMH of low PTH hypercalcemia (work up ongoing), depression, gerd, moderate persistent asthma/copd, DM (resolved with weight loss), opiate dependence (no longer on suboxone), HTN. She was seen back on 12/27: She came in from home for evaluation of fall.? She was recently seen in the emergency department for mechanical fall secondary to lower extremities swelling and edema. Evaluated by case management for possible placement. She was was sent home with home physical therapy and PT at home. She fell in the morning hitting her head, patient does not recall details of falling, she had been vomiting in the emergency department.? Complaining of mild headache. In ED, she became hypoxic to 88%; this corrected with supplemental O2. CTA of the chest failed to demonstrate a PE. CT scan of the abdomen from 12/23 revealed: *No acute cardiopulmonary abnormalities identified. No evidence of pneumonia or active pulmonary edema. *Moderate diffuse aortic calcific atherosclerosis. *Partial visualization of dermal thickening of the left breast. Findings could represent chronic scarring or acute traumatic inflammatory changes. Alternatively, findings could represent cellulitis or possible inflammatory carcinoma. Consider further evaluation with dedicated mammography of the left breast as clinically indicated. *Partially healed subacute fracture of the lateral segment of the left 10th rib. This finding demonstrates evidence of interval progression of healing compared with 08/17/2021. CT abdomen and pelvis: *Moderate focal subcutaneous inflammatory changes along the left flank new compared with 08/17/2021. Mild subcutaneous reticulation adjacent to the right hip. Both findings may represent acute traumatic soft tissue inflammatory changes. *Partially healed, subacute fracture of the lateral segment of the left 10th rib with interval progression of healing compared with 08/17/2021. *Mild diffuse intrahepatic biliary duct dilatation and moderate diffuse prominence of the common bile duct. Findings are slightly increased in prominence compared with 08/17/2021. No cholelithiasis identified though CT has low sensitivity in the detection of cholelithiasis. As clinically indicated, consider further evaluation with right upper quadrant ultrasound. *Mild colonic diverticulosis. No evidence of acute diverticulitis. *Small hiatal hernia. Patient also developed atrial fibrillation with a rapid ventricular response; during multiple episodes of vomiting patient's heart rate went into the 30s and she subsequently converted back to normal sinus rhythm. Multiple imaging including CT of the head CT abdomen pelvis and CTA chest failed to demonstrate any acute pathology. Labs revealed: Calcium that corrects to 10.7. She was admitted for treatment of same. Review of Systems - Constitutional Reports system reviewed and no additional complaints, except as documented, Reports weakness, Reports weight loss - Eyes Reports system reviewed and no additional complaints, except as documented, Denies blurry vision, Denies bulging eyes - ENT Reports system reviewed and no additional complaints, except as documented - Cardiovascular Reports system reviewed and no additional complaints, except as documented, Denies chest pain at rest - Respiratory Reports no additional respiratory complaints, Denies chest congestion - Gastrointestinal Reports system reviewed and no additional complaints, except as documented, Denies abdominal pain, Denies belching, Denies vomiting - Genitourinary Reports no additional female genitourinary complaints, Reports absent period, Denies abnormal vaginal bleeding - Musculoskeletal Reports system reviewed and no additional complaints, except as documented, Reports back pain, Reports body aches - Integumentary/Breasts Skin/Breast: Reports no additional skin complaints - Neurologic Reports system reviewed and no additional complaints, except as documented, Reports weakness - Psychiatric Reports system reviewed and no additional complaints, except as documented - Endocrine Reports no additional endocrine complaints - Hematologic/Lymphatic Reports system reviewed and no additional complaints, except as documented - Allergic/Immunologic Reports system reviewed and no additional complaints, except as documented [facility] Medical History: Medical History (Last Reviewed 03/22/22 @ 10:31 by Chavo Montero MD) Anxiety Asthma-COPD overlap syndrome Depression Diabetes mellitus, type 2 GERD (gastroesophageal reflux disease) New onset atrial fibrillation Functional capacity: uses cane/walker Patient : No Family History: Family History (Last Reviewed 03/22/22 @ 10:31 by Chavo Montero MD) Father Cancer Mother No problems noted. Surgical History: Surgical History (Last Reviewed 03/22/22 @ 10:31 by Chavo Montero MD) History of section History of shoulder surgery Social History: Social History (Last Reviewed 03/22/22 @ 10:31 by Chavo Montero MD) Living Situation History: Household Members: Family Housing: Care Home Alcohol History: Unable to assess alcohol history related to: Unable to respond Tobacco History: Patient Tobacco Use Status: Never used Tobacco Advance Directives: Advance Directives Date on File: 12/24/21 Occupation Assessmet: service: No Current occupational status: unemployed Current occupational status: retired Home Medications and Allergies Current Medications: Current Medications Acetaminophen (Acetaminophen 325 Mg Tablet) 650 mg PO Q6H PRN PRN Reason: Pain, Mild (Pain Scale 1-3) Last Admin: 03/22/22 12:30 Dose: 650 mg Aripiprazole (Aripiprazole 2 Mg Tablet) 4 mg PO DAILY [facility] Last Admin: 03/22/22 08:25 Dose: 4 mg Buspirone HCl (Buspirone Hcl 5 Mg Tablet) 15 mg PO BID [facility] Last Admin: 03/22/22 19:47 Dose: 15 mg Docusate Sodium (Docusate Sodium 100 Mg Capsule) 100 mg PO BID [facility] Last Admin: 03/22/22 19:47 Dose: 100 mg Duloxetine HCl (Duloxetine Hcl 60 Mg Capsule.) 60 mg PO BID [facility] Last Admin: 03/22/22 19:48 Dose: 60 mg Ferrous Sulfate (Ferrous Sulfate 324 Mg Tablet.) 324 mg PO DAILY [facility] Last Admin: 03/22/22 08:26 Dose: 324 mg Fluticasone Propionate (Fluticasone Propionate 100 Mcg Blst.W.Dev) 2 puff INHALE BID [facility] Last Admin: 03/22/22 22:05 Dose: Not Given Furosemide (Furosemide 40 Mg/4 Ml Vial) 40 mg IVPUSH DAILY [facility]; Protocol Last Admin: 03/22/22 10:14 Dose: 40 mg Heparin Sodium (Porcine) (Heparin Sodium,Porcine 5,000 Unit/Ml Vial) 5,000 unit SUBCUT Q8H [facility] Last Admin: 03/23/22 05:56 Dose: 5,000 unit Hydroxyzine HCl (Hydroxyzine Hcl 25 Mg Tablet) 25 mg PO Q8H PRN PRN Reason: anxiety/restlessness Last Admin: 03/21/22 15:03 Dose: 25 mg Sodium Chloride (Ns) 1,000 mls @ 100 mls/hr IVCONT .Q10H [facility] Last Admin: 03/23/22 01:19 Dose: 100 mls/hr Omeprazole (Omeprazole 20 Mg Capsule.) 20 mg PO DAILY@0630 [facility] Last Admin: 03/23/22 05:56 Dose: 20 mg Pharmacy Consult (Consult Rx Perform Med Rec) 1 each MISCELLANE ONCE PRN PRN Reason: Consult order Pramipexole Dihydrochloride (Pramipexole Di-Hcl 0.125 Mg Tablet) 0.125 mg PO BID [facility] Last Admin: 03/22/22 19:48 Dose: 0.125 mg Sodium Chloride (0.9 % Sodium Chloride Flush 3 Ml Syringe) 3 ml IVFLUSH QSHIFT [facility] Last Admin: 03/22/22 19:47 Dose: 3 ml Thiamine HCl (Thiamine Hcl 100 Mg Tablet) 100 mg PO DAILY [facility] Last Admin: 03/22/22 08:25 Dose: 100 mg Home Medications Medication Instructions Recorded Confirmed Type buspirone 15 mg tablet 15 mg PO BID 04/17/20 03/19/22 History duloxetine 60 mg capsule,delayed 60 mg PO BID 04/17/20 03/19/22 History release pramipexole 0.125 mg tablet 0.125 mg PO BID 04/26/20 03/19/22 History acetaminophen 500 mg tablet 1,000 mg PO Q8H 12/21/21 01/29/22 History albuterol sulfate 90 mcg/actuation 2 puff inhalation Q6H PRN 12/21/21 03/19/22 History aerosol inhaler shortness of breath or wheezing fluticasone propionate 110 2 puff inhalation BID 12/21/21 03/19/22 History mcg/actuation HFA aerosol inhaler (Flovent HFA) methyl salicylate 30 %-menthol 10 1 appl topical TID PRN Muscle Pain 12/21/21 03/19/22 History % topical cream (Icy Hot) pantoprazole 40 mg tablet,delayed 40 mg PO DAILY 12/21/21 03/19/22 History release sodium chloride 0.65 % nasal spray 2 spray intranasal QID PRN Nasal 12/21/21 03/19/22 History aerosol ([place] Nasal) Congestion thiamine HCl (vitamin B1) 100 mg 100 mg PO DAILY 12/21/21 03/19/22 History tablet aripiprazole 2 mg tablet 4 mg PO DAILY 03/19/22 03/19/22 History ferrous sulfate 325 mg (65 mg 1 tab PO DAILY 03/19/22 03/19/22 History iron) tablet fexofenadine 60 mg tablet 60 mg PO DAILY 03/19/22 03/19/22 History loperamide 2 mg tablet 2 mg PO Q6H PRN Loose Stool 03/19/22 03/19/22 History promethazine 25 mg tablet 25 mg PO QID PRN Nausea And 03/19/22 03/19/22 History Vomiting Allergies Allergy/AdvReac Type Severity Reaction Status Date / Time No Known Allergies Allergy Verified 01/28/22 02:17 [No Known Allergies*] Exam Vital signs: Vital Signs Temp 99.0 F 03/23/22 07:50 Pulse 94 03/23/22 07:50 Resp 18 03/23/22 07:50 BP 137/69 03/23/22 07:50 Pulse Ox 94 03/23/22 07:50 O2 Del Method 03/23/22 07:50 Intake & Output 03/22/22 03/23/22 03/23/22 18:59 06:59 18:59 Intake Total 290 / 1510 1220 / 1510 Output Total 700 / 700 Balance 290 / 810 520 / 810 Urine Output (Average ml/kg/hr) 0.86 Intake: Intake, Oral Amount 240 / 460 220 / 460 Intake, IV Amount 50 / 1050 1000 / 1050 cefTRIAXone sodium 1 gm In 0.9 50 / 50 % Sodium Chloride 50 ml @ 100 mls/hr IV Q24H DEDE Rx#: [id number] 0.9 % Sodium Chloride 1,000 ml 1000 / 1000 @ 100 mls/hr IVCONT .Q10H DEDE Rx#:[id number] Output: Output, Urine Amount 700 / 700 Other: Breakfast % Eaten 100% Lunch % Eaten 100% Number of Incontinent Voids 5 2 Urine Color Yellow Yellow Last Bowel Movement 03/22/22 Stool Incontinent Stool Amount Moderate Stool Color Brown Stool Consistency Formed Weight 67.6 kg BMI result Body Mass Index 25.5 - Constitutional Present: mild distress - Routine HEENT Exam Head: Present: normal inspection Eye: Present: normal appearance ENT: Present: mucous membranes moist - Routine Neck Exam Present: full ROM - Routine Respiratory Exam Present: CTAB - Routine Cardiovascular Exam Cardiovascular: Present: RRR, S1, S2 - Routine Abdominal Exam Present: normal bowel sounds, nontender. Absent: organomegaly - Routine Rectal Exam Patient deferred: digital exam - Routine Extremities Exam Present: nontender - Routine Back/Spine/Pelvis Exam Back/Spine: Present: full ROM - Routine Skin Exam Present: intact - Routine Neurological Exam Present: alert, oriented X3 - Routine Psychiatric Exam Present: normal affect Data - Labs CBC & Chem 7: 03/24/22 05:50 03/26/22 12:55 Labs: 03/19/22 10:36 ECG 12 lead EKG Stat EKG Documentation DIRECTED CT head/brain wo IV con Stat XR chest 1V Stat 03/19/22 10:45 0.9 % Sodium Chloride [Ns] 1,000 ml IVCONT 999 mls/hr 03/19/22 11:05 COVID-19 ID NOW ([employer]) Stat Complete Blood Count Auto Diff Stat Comprehensive Met. Panel Stat Partial Thromboplastin Time Stat Prothrombin Time INR Stat SLIDE REVIEW Stat Troponin-I High Sensitivity Stat 03/19/22 11:56 Furosemide [Lasix] 20 mg IVPUSH ONCE ONE 03/19/22 12:00 0.9 % Sodium Chloride [Ns] 1,000 ml IVCONT 999 mls/hr 0.9 % Sodium Chloride [Ns] 1,000 ml IVCONT 999 mls/hr 03/19/22 13:00 Zoledronic AC/Mannitol/0.9NACL [Zometa] 4 mg in 100 ml IV ONCE 03/19/22 13:57 Comprehensive Met. Panel Stat 03/19/22 14:45 0.9 % Sodium Chloride [Ns] 1,000 ml IVCONT 125 mls/hr 03/19/22 15:54 Immunofixation Pnl, Serum Routine Protein Electrophoresis, Serum RDAILY 03/20/22 07:00 cefTRIAXone sodium [Rocephin] 1 gm 0.9 % Sodium Chloride [Ns] 50 ml IV Q24H 03/20/22 07:05 BMP [Basic Metabolic Panel Fasting] Routine Complete Blood Count no Diff AM Lactic Acid Stat Liver Panel Routine 03/20/22 09:33 cefTRIAXone sodium [Rocephin] 1 gm .ROUTE .STK-MED ONE 03/21/22 05:40 Basic Metabolic Panel AM Complete Blood Count no Diff AM 03/21/22 06:11 cefTRIAXone sodium [Rocephin] 1 gm .ROUTE .STK-MED ONE 03/21/22 08:15 Potassium Chloride Packet [Klor-Con Packet] 40 meq PO Q2H 03/22/22 US breast LT complete Stat 03/22/22 06:06 cefTRIAXone sodium [Rocephin] 1 gm .ROUTE .STK-MED ONE 03/22/22 08:12 Basic Metabolic Panel AM Complete Blood Count no Diff AM 03/22/22 09:03 Lactulose [Chronulac] 20 gm PO ONCE ONE 03/22/22 11:30 Potassium Chloride Packet [Klor-Con Packet] 40 meq PO Q2H 03/22/22 14:31 Occult Blood, Stool x1 [OBSX1] Stat 03/23/22 05:49 Basic Metabolic Panel AM Complete Blood Count no Diff AM Liver Panel Routine Laboratory Last Values WBC 4.9 X10*3/uL (4.8-10.8) 03/23/22 05:49 RBC 2.53 X10*6/uL (4.20-5.50) L 03/23/22 05:49 Hgb 8.2 g/dl (12.0-16.0) L 03/23/22 05:49 Hct 23.2 % (37.0-47.0) L 03/23/22 05:49 MCV 91.7 fL (80.0-98.0) 03/23/22 05:49 MCH 32.4 pg (27.0-33.0) 03/23/22 05:49 MCHC 35.3 g/dl (31.0-35.0) H 03/23/22 05:49 RDW 13.7 % (11.0-16.0) 03/23/22 05:49 Plt Count 163 X10*3/uL (160-400) 03/23/22 05:49 MPV 9.4 fL (9.4-12.3) 03/23/22 05:49 Immature Gran % (Auto) 1.2 % (0.0-0.4) H 03/19/22 11:05 Neut % (Auto) 71.0 % (45-73) 03/19/22 11:05 Lymph % (Auto) 15.6 % (20-40) L 03/19/22 11:05 Lake % (Auto) 7.1 % (2-11) 03/19/22 11:05 Eos % (Auto) 5.1 % (0-4) H 03/19/22 11:05 Baso % (Auto) 0.0 % (0-2) 03/19/22 11:05 Lymph # (Auto) 0.8 X10*3/uL (1.2-4.9) L 03/19/22 11:05 Lake # (Auto) 0.4 X10*3/uL (0.1-1.2) 03/19/22 11:05 Eos # (Auto) 0.3 X10*3/uL (0.0-0.4) 03/19/22 11:05 Baso # (Auto) 0.0 X10*3/uL (0.0-0.2) 03/19/22 11:05 Abs Immat Gran (auto) 0.06 X10*3/uL (0.00-0.03) H 03/19/22 11:05 Absolute Neuts (auto) 3.5 x10*3/uL (2.0-8.3) 03/19/22 11:05 Absolute Nucleated RBC 0.000 X10*3/uL (0.0-0.012) 03/23/22 05:49 Nucleated RBC % (auto) 0.0 /100WBC (0.0-0.2) 03/23/22 05:49 Smear Tech's Comments VERIFIED 03/19/22 11:05 PT 10.1 SEC (10.0-13.1) 03/19/22 11:05 INR 0.9 (0.9-1.1) 03/19/22 11:05 APTT 29.6 SEC (26.0-36.4) 03/19/22 11:05 Sodium 132 mmol/L (135-145) L 03/23/22 05:49 Potassium 3.3 mmol/L (3.3-5.1) 03/23/22 05:49 Chloride 99 mmol/L (96-108) 03/23/22 05:49 Carbon Dioxide 22 mmol/L (22-29) 03/23/22 05:49 Anion Gap 14 (12-20) 03/23/22 05:49 BUN 29 mg/dL (9-16) H 03/23/22 05:49 Creatinine 1.64 mg/dL (0.5-1.4) H 03/23/22 05:49 Estim Creat Clear Calc 28.8 03/23/22 05:49 Estimated GFR 31 03/23/22 05:49 Random Glucose 100 mg/dL (60-115) 03/23/22 05:49 Fasting Glucose 87 mg/dL (60-99) 03/20/22 07:05 Lactic Acid 1.1 mmol/L (0.5-2.0) 03/20/22 07:05 Calcium 11.4 mg/dL (8.4-10.2) H 03/23/22 05:49 Total Bilirubin 0.4 mg/dL (0.0-1.0) 03/23/22 05:49 Direct Bilirubin 0.2 mg/dL (0.0-0.5) 03/23/22 05:49 AST 20 U/L (5-31) 03/23/22 05:49 ALT 25 U/L (0-31) 03/23/22 05:49 Alkaline Phosphatase 88 U/L (39-117) D 03/23/22 05:49 Troponin I High Sens 15.1 ng/L (<3.5-17.0) D 03/19/22 11:05 Total Protein 6.0 g/dL (6.5-8.0) L 03/23/22 05:49 Total Protein (PEP) 6.1 g/dL (6.1-8.1) 03/19/22 15:54 Albumin 3.0 g/dL (3.5-5.0) L 03/23/22 05:49 Albumin (PEP) 3.1 g/dL (3.8-4.8) L 03/19/22 15:54 Yfatk-0-Khankmfmy 0.4 g/dL (0.2-0.3) H 03/19/22 15:54 Biedh-0-Ogvzvhrdz 0.8 g/dL (0.5-0.9) 03/19/22 15:54 Atna-6-Djapyqso 0.3 g/dL (0.4-0.6) L 03/19/22 15:54 Oakc-5-Sgfpjmil 0.3 g/dL (0.2-0.5) 03/19/22 15:54 Gamma Globulins 1.2 g/dL (0.8-1.7) 03/19/22 15:54 Abnorm Protein Band 1 TNP 03/19/22 15:54 Abnorm Protein Band 2 TNP 03/19/22 15:54 Abnorm Protein Band 3 TNP 03/19/22 15:54 PEP Interpretation SEE NOTE 03/19/22 15:54 Urine Color Yellow 03/19/22 12:02 Urine Appearance Clear 03/19/22 12:02 Urine pH 6.5 (5.0-9.0) 03/19/22 12:02 Ur Specific [place] 1.010 (1.005-1.025) 03/19/22 12:02 Urine Protein Negative mg/dL (Neg-Trace) 03/19/22 12:02 Urine Glucose (UA) Negative mg/dL (Negative) 03/19/22 12:02 Urine Ketones Negative mg/dL (Negative) 03/19/22 12:02 Urine Blood Negative (Negative) 03/19/22 12:02 Urine Nitrite Negative (Negative) 03/19/22 12:02 Ur Leukocyte Esterase Trace (Negative) H 03/19/22 12:02 Urine RBC 0-2 /HPF (0-2) 03/19/22 12:02 Urine WBC 0-5 /HPF (0-5) 03/19/22 12:02 Ur Squamous Epith Cells 0-2 /HPF (0-2) 03/19/22 12:02 Urine Bacteria None Seen (None Seen) 03/19/22 12:02 Hyaline Casts 0-2 /LPF (0-2) 03/19/22 12:02 Stool Occult Blood NEGATIVE (NEGATIVE) 03/22/22 14:31 IgG Total 1223 mg/dL (600-1540) 03/19/22 15:54 IgA Total 160 mg/dL (70-320) 03/19/22 15:54 IgM 185 mg/dL (50-300) 03/19/22 15:54 MADDIE Interpretation SEE NOTE 03/19/22 15:54 COVID-19 (RANJIT) Negative (Negative) 03/19/22 11:05 COVID-19 Clin Com See Note 03/19/22 11:05 - Imaging Radiologist's impression: ITS Impressions Head CT 03/19/22 10:55 IMPRESSION: No acute intracranial abnormality. Chest X-Ray 03/19/22 11:31 IMPRESSION: -Coarsening bronchiolar markings similar to prior exam. -No lobar or segmental airspace consolidation or effusion. Breast Ultrasound 03/22/22 12:11 IMPRESSION: -No skin thickening or edema tracking in soft tissue planes. -No solid mass or architectural abnormality on ultrasound. ASSESSMENT: BI-RADS 3: Probably Benign RECOMMENDATION: -Bilateral diagnostic mammography. Assessment and Plan Patient Active problem list reviewed?: Yes (1) Hypercalcemia Status: Acute Assessment and plan: 71-year-old lady who presented with a fall at home. She did complain of nausea, vomiting and shortness of breath. She was noted to be hypercalcemic. CT chest revealed no PE however did raise concern for left breast thickening/mass. DIFFERENTIAL DIAGNOSIS: 1. Related to diuretics: She was on hydrochlorothiazide. 2. Primary hyperthyroidism. 3. Multiple myeloma: 4 hypercalcemia of excessive vitamin D intake. 5. Malignancy related hypercalcemia. Checked iPTH. This came back low. Further workup is in progress. SIEP was checked and is within normal limits. Calcium level trending downwards. Patient had a mammogram at [facility] as an outpatient. Ultrasound of the breast came back negative. This is good news. Other etiologies of hypercalcemia include: 1. Multiple Myeloma: SIEP was normal, 2. Hyperparathyroidism. iPTH from December was low. PLAN: Will recheck iPTH for confirmation. Waiting for urine IEP and free light chain ratio, Check skeletal series to R/O any lytic lesions. For now, agree with IV hydration with normal saline. She recieved IV bisphosphonate, Zometa on 03/19, for more rapid correction of the hypercalcemia. Hold vitamin D supplementation. Thank you, I will follow along with you, Cc: Addendum: Patient was discharged home on 03/26, discharge summary: The patient was admitted to the hospital?for evaluation of Acute Metabolic encephalopathy due to hypercalcemia. Treated with IV fluid, Lasix and received Zometa as he was evaluated by Nephrology and Hematology. Investigation for underlying malignancy showed no evidence of any masses as resumed left breast lesion was evaluated by mammogram at [facility] that was negative for any masses. An ultrasound was done and did not show any masses as well. Skeletal survey was done showing no evidence of osteolytic lesions. Calcium level trended down to normal during the hospital stay. Blood work was consistent with low PTH and high intact calcium. Normal in SPEP and UPEP, pending kappa lambda and urine immunofixation at time of discharge to be followed as outpatient with Nephrology. - Time Spent With Patient Time Spent with Patient (in minutes): 25
[2022-03-23] MEDS: Docusate Sodium 100 MG CAPSULE PO ×2 (09:05→20:25)
[2022-03-23] MEDS: Thiamine HCL 100 MG TABLET PO (09:05)
[2022-03-23] MEDS: Ferrous Sulfate 324 MG TABLET.DR PO (09:05)
[2022-03-23] MEDS: busPIRone HCl 5 MG TABLET 15 MG PO ×2 (09:05→20:25)
[2022-03-23] MEDS: Pramipexole Di-HCL 0.125 MG TABLET PO ×2 (09:05→20:25)
[2022-03-23] MEDS: DULoxetine HCl 60 MG CAPSULE.DR PO ×2 (09:05→20:25)
[2022-03-23] MEDS: ARIPiprazole 2 MG TABLET 4 MG PO (09:05)
[2022-03-23] MEDS: Furosemide 40 MG/4 ML VIAL IVPUSH (09:06)
[2022-03-23] MEDS: 0.9 % Sodium Chloride Flush 3 ML SYRINGE IVFLUSH (09:06)
--- NOTE | 2022-03-23 12:20 | HO.PM.IMPN ---
Subjective Subjective Date of Service: 03/23/22 Interval History: The patient was seen and evaluated this morning Laying in bed, feels mild improvement and more alert and interactive Hemoglobin stable at 8.2, no active bleeding noticed Calcium dropped to 11.4 Denies any fever, chills No reported other overnight events. Systemic review: Feels tired and report generalized weakness No chest pain, palpitation No shortness of breath or coughing No abdominal pain, nausea or vomiting No urinary symptoms Physical Exam Vital Signs: Vital Signs: Last Vital Signs Temp 99.0 F 03/23/22 07:50 Pulse 94 03/23/22 10:00 Resp 18 03/23/22 07:50 BP 137/69 03/23/22 10:00 Pulse Ox 94 03/23/22 10:00 O2 Del Method 03/23/22 07:50 BMI result Body Mass Index 25.5 Const: Other: Constitutional : Alert, interactive, very anxious Neck : Normal inspection, Supple Cardiovascular : RRR, no JVP, no lower extremity edema Respiratory : fair bilateral air entry, no crackles, wheezes or rhonchi Gastrointestinal: soft, lax, Normal bowel sounds, Non tender Skin : Warm, Dry Neurological : Alert & oriented to self and place, No focal deficit Objective Data Active Medications Acetaminophen (Acetaminophen 325 Mg Tablet) 650 mg PO Q6H PRN PRN Reason: Pain, Mild (Pain Scale 1-3) Last Admin: 03/22/22 12:30 Dose: 650 mg Documented By: NAVJOT Aripiprazole (Aripiprazole 2 Mg Tablet) 4 mg PO DAILY [facility] Last Admin: 03/23/22 09:05 Dose: 4 mg Documented By: DOE Buspirone HCl (Buspirone Hcl 5 Mg Tablet) 15 mg PO BID [facility] Last Admin: 03/23/22 09:05 Dose: 15 mg Documented By: DOE Docusate Sodium (Docusate Sodium 100 Mg Capsule) 100 mg PO BID [facility] Last Admin: 03/23/22 09:05 Dose: 100 mg Documented By: DOE Duloxetine HCl (Duloxetine Hcl 60 Mg Capsule.) 60 mg PO BID [facility] Last Admin: 03/23/22 09:05 Dose: 60 mg Documented By: DOE Ferrous Sulfate (Ferrous Sulfate 324 Mg Tablet.) 324 mg PO DAILY [facility] Last Admin: 03/23/22 09:05 Dose: 324 mg Documented By: DOE Fluticasone Propionate (Fluticasone Propionate 100 Mcg Blst.W.Dev) 2 puff INHALE BID [facility] Last Admin: 03/22/22 22:05 Dose: Not Given Documented By: JAMES Non-Admin Reason: Patient Refused Furosemide (Furosemide 40 Mg/4 Ml Vial) 40 mg IVPUSH DAILY [facility]; Protocol Last Admin: 03/23/22 09:06 Dose: 40 mg Documented By: DOE Heparin Sodium (Porcine) (Heparin Sodium,Porcine 5,000 Unit/Ml Vial) 5,000 unit SUBCUT Q8H [facility] Last Admin: 03/23/22 05:56 Dose: 5,000 unit Documented By: FRANCOISE Hydroxyzine HCl (Hydroxyzine Hcl 25 Mg Tablet) 25 mg PO Q8H PRN PRN Reason: anxiety/restlessness Last Admin: 03/21/22 15:03 Dose: 25 mg Documented By: SAVITA Sodium Chloride (Ns) 1,000 mls @ 100 mls/hr IVCONT .Q10H [facility] Last Admin: 03/23/22 09:20 Dose: 100 mls/hr Documented By: JASPAL Omeprazole (Omeprazole 20 Mg Capsule.) 20 mg PO DAILY@0630 [facility] Last Admin: 03/23/22 05:56 Dose: 20 mg Documented By: FRANCOISE Pharmacy Consult (Consult Rx Perform Med Rec) 1 each MISCELLANE ONCE PRN PRN Reason: Consult order Pramipexole Dihydrochloride (Pramipexole Di-Hcl 0.125 Mg Tablet) 0.125 mg PO BID [facility] Last Admin: 03/23/22 09:05 Dose: 0.125 mg Documented By: DOE Sodium Chloride (0.9 % Sodium Chloride Flush 3 Ml Syringe) 3 ml IVFLUSH QSHIFT [facility] Last Admin: 03/23/22 09:06 Dose: 3 ml Documented By: DOE Thiamine HCl (Thiamine Hcl 100 Mg Tablet) 100 mg PO DAILY [facility] Last Admin: 03/23/22 09:05 Dose: 100 mg Documented By: DOE Labs CBC & Chem 7: 03/23/22 05:49 03/23/22 05:49 Labs: Laboratory Results - last 24 hr 03/22/22 03/23/22 03/23/22 14:31 05:49 05:49 MCV 91.7 MCH 32.4 MCHC 35.3 H RDW 13.7 Plt Count 163 MPV 9.4 Absolute Nucleated RBC 0.000 Nucleated RBC % (auto) 0.0 Anion Gap 14 Estim Creat Clear Calc 28.8 Estimated GFR 31 Random Glucose 100 Calcium 11.4 H Total Bilirubin Direct Bilirubin AST ALT Alkaline Phosphatase Total Protein Albumin Stool Occult Blood NEGATIVE 03/23/22 05:49 MCV MCH MCHC RDW Plt Count MPV Absolute Nucleated RBC Nucleated RBC % (auto) Anion Gap Estim Creat Clear Calc Estimated GFR Random Glucose Calcium Total Bilirubin 0.4 Direct Bilirubin 0.2 AST 20 ALT 25 Alkaline Phosphatase 88 D Total Protein 6.0 L Albumin 3.0 L Stool Occult Blood Microbiology Microbiology Results: Microbiology 03/20/22 07:05 Blood Culture - Preliminary Blood - Venous No growth after 48 hours. 03/20/22 07:05 Blood Culture - Preliminary Blood - Venous No growth after 48 hours. Assessment and Plan (1) Acute kidney failure: Status: Acute (2) Hypercalcemia: Status: Acute (3) Acute metabolic encephalopathy: Status: Acute Plan 71F PMH of low PTH hypercalcemia (work up ongoing), depression, gerd, moderate persistent asthma/copd, DM (resolved with weight loss), opiate dependence (no longer on suboxone), HTN, presented with ams, found to have reccurent hypercalcemia Acute Metabolic encephalopathy due to hypercalcemia previously low PTH, pthrp within normal range, no obvious malignancy, though highly suspicious for malignancy due to weight loss and low PTH Trending down to 11.4 Received Zometa Continue normal saline and Lasix nephrology input appreciated, investigate for underlying malignancy Oncology input appreciated, SPEP, UPEP, K/L ratio, skeletal survey Normal in SPEP and UPEP, pending kappa lambda and in urine immunofixation To check skeletal survey monitor BMP Breast lesion Noticed on CT scan Surgery team followed Left breast lesion noticed on CT scan evaluated by mammogram and ultrasound, no masses appreciated acute kidney injury Likely ATN due to dehydration from hypercalcemia and nephrogenic DI Creatinine improving at 1.6 hydrate and monitor BMP Hypokalemia Potassium improved to 3.3 To give replacement and follow BMP Hyponatremia Sodium 132, mild Likely secondary to IV fluids Monitor BMP history of diabetes resolved after weight loss mood disorder continue Cymbalta, BuSpar, aripiprazole GERD H2 venice, ppi moderate persistent asthma/copd stbale albuterol as needed opiate dependence not on suboxone anymore HTN no longer on hctz monitor for now dvt prophylaxis - hep sq DNR/DNI - per molst The patient will need overnight hospital stay for treatment of severe hypercalcemia, acute kidney injury, requiring aggressive IV hydration and close monitoring of labs to prevent possible decompensation and further workup for possible underlying malignancy pending safe discharge plan Quality Stroke Does the patient have a stroke diagnosis?: No VTE Prior VTE?: No VTE Risk Level:: Medical - moderate - high VTE Device Contraindication: Treatment Not Indicated VTE Drug Contraindication: N/A - Med Ordered
[2022-03-23] MEDS: Fluticasone Propionate 100 MCG BLST.W.DEV 2 PUFF INHALE (12:38)
[2022-03-23] MEDS: Potassium Chloride Packet 20 MEQ PACKET 40 MEQ PO (12:51)
[2022-03-24] MEDS: 0.9 % Sodium Chloride 1,000 ML 100 ML IVCONT (06:22)
[2022-03-24] MEDS: Heparin Sodium,Porcine 5,000 UNIT/ML VIAL 5000 UNIT SUBCUT ×3 (06:31→22:58)
[2022-03-24] MEDS: Omeprazole 20 MG CAPSULE.DR PO (06:32)
[2022-03-24 06:52] LABS: Hematocrit 22.1 % (37.0-47.0); Hemoglobin 7.8 g/dl (12.0-16.0); Mean Corpuscular HGB Conc 35.3 g/dl (31.0-35.0); Mean Corpuscular Hemoglobin 32.1 pg (27.0-33.0); Mean Corpuscular Volume 90.9 fL (80.0-98.0); Mean Platelet Volume 9.4 fL (9.4-12.3); Platelet Count 160 X10*3/uL (160-400); Red Blood Count 2.43 X10*6/uL (4.20-5.50); Red Cell Distribution Width 13.9 % (11.0-16.0); White Blood Count 4.4 X10*3/uL (4.8-10.8)
[2022-03-24 07:22] LABS: Anion Gap 13 (12-20); Blood Urea Nitrogen 24 mg/dL (9-16); Calcium 10.6 mg/dL (8.4-10.2); Carbon Dioxide 23 mmol/L (22-29); Chloride 101 mmol/L (96-108); Creatinine Clr Calc Pharmacy 31.7; Estimated Glomerular Filt Rate 34; Glucose Random 92 mg/dL (60-115); Potassium 3.2 mmol/L (3.3-5.1); Sodium 134 mmol/L (135-145)
[2022-03-24 07:43] VITALS: BP 166/72; PULSE 95; RESP 20; TEMP 37; O2SAT 95
[2022-03-24] MEDS: busPIRone HCl 5 MG TABLET 15 MG PO ×2 (09:50→20:18)
[2022-03-24] MEDS: Lactulose 20 GM/30 ML SOLUTION PO (09:50)
[2022-03-24] MEDS: ARIPiprazole 2 MG TABLET 4 MG PO (09:50)
[2022-03-24] MEDS: DULoxetine HCl 60 MG CAPSULE.DR PO ×2 (09:51→20:18)
[2022-03-24] MEDS: bisacodyL 10 MG SUPP.RECT PR (09:51)
[2022-03-24] MEDS: 0.9 % Sodium Chloride Flush 3 ML SYRINGE IVFLUSH ×3 (09:51→20:18)
[2022-03-24] MEDS: Ferrous Sulfate 324 MG TABLET.DR PO (09:51)
[2022-03-24] MEDS: Docusate Sodium 100 MG CAPSULE PO ×2 (09:51→20:18)
[2022-03-24] MEDS: Pramipexole Di-HCL 0.125 MG TABLET PO ×2 (09:51→20:18)
[2022-03-24] MEDS: Thiamine HCL 100 MG TABLET PO (09:51)
[2022-03-24] MEDS: Furosemide 40 MG/4 ML VIAL IVPUSH (09:55)
[2022-03-24 11:34] VITALS: BP 137/69; PULSE 91; RESP 20; TEMP 37; O2SAT 98
--- NOTE | 2022-03-24 12:14 | MHC.CM.PN ---
PER MD, Patient does not want to go to Rehab (PAUL had approved [facility] [place] for a w/e dc but not able to determine today (Friday) if they would support a home dc). Per MD, will address dc further, tomorrow. CM will follow.
--- NOTE | 2022-03-24 12:22 | HO.PM.IMPN ---
Subjective Subjective Date of Service: 03/24/22 Interval History: The patient was seen and evaluated this morning Laying in bed, feels much Better today more alert and interactive Hemoglobin stable around 7-8, no active bleeding noticed Calcium dropped to 10.6 Denies any fever, chills No reported other overnight events. Systemic review: Feels tired and report generalized weakness improving No chest pain, palpitation No shortness of breath or coughing No abdominal pain, nausea or vomiting No urinary symptoms Physical Exam Vital Signs: Vital Signs: Last Vital Signs Temp 98.6 F 03/24/22 11:34 Pulse 91 03/24/22 11:34 Resp 20 03/24/22 11:34 BP 137/69 03/24/22 11:34 Pulse Ox 98 03/24/22 11:34 O2 Del Method 03/24/22 11:34 O2 Flow Rate 1 03/24/22 11:34 BMI result Body Mass Index 25.5 Const: Other: Constitutional : Alert, interactive, less anxious Neck : Normal inspection, Supple Cardiovascular : RRR, no JVP, no lower extremity edema Respiratory : fair bilateral air entry, no crackles, wheezes or rhonchi Gastrointestinal: soft, lax, Normal bowel sounds, Non tender Skin : Warm, Dry Neurological : Alert & oriented to self and place, No focal deficit Objective Data Active Medications Acetaminophen (Acetaminophen 325 Mg Tablet) 650 mg PO Q6H PRN PRN Reason: Pain, Mild (Pain Scale 1-3) Last Admin: 03/22/22 12:30 Dose: 650 mg Documented By: NAVJOT Aripiprazole (Aripiprazole 2 Mg Tablet) 4 mg PO DAILY [facility] Last Admin: 03/24/22 09:50 Dose: 4 mg Documented By: JASPAL Buspirone HCl (Buspirone Hcl 5 Mg Tablet) 15 mg PO BID [facility] Last Admin: 03/24/22 09:50 Dose: 15 mg Documented By: JASPAL Docusate Sodium (Docusate Sodium 100 Mg Capsule) 100 mg PO BID [facility] Last Admin: 03/24/22 09:51 Dose: 100 mg Documented By: JASPAL Duloxetine HCl (Duloxetine Hcl 60 Mg Capsule.) 60 mg PO BID [facility] Last Admin: 03/24/22 09:51 Dose: 60 mg Documented By: JASPAL Ferrous Sulfate (Ferrous Sulfate 324 Mg Tablet.) 324 mg PO DAILY [facility] Last Admin: 03/24/22 09:51 Dose: 324 mg Documented By: JASPAL Fluticasone Propionate (Fluticasone Propionate 100 Mcg Blst.W.Dev) 2 puff INHALE BID [facility] Last Admin: 03/24/22 03:34 Dose: Not Given Documented By: FRANCOISE Non-Admin Reason: Med Not Available Furosemide (Furosemide 40 Mg/4 Ml Vial) 40 mg IVPUSH DAILY [facility]; Protocol Last Admin: 03/24/22 09:55 Dose: 40 mg Documented By: JASPAL Heparin Sodium (Porcine) (Heparin Sodium,Porcine 5,000 Unit/Ml Vial) 5,000 unit SUBCUT Q8H [facility] Last Admin: 03/24/22 06:31 Dose: 5,000 unit Documented By: FRANCOISE Hydroxyzine HCl (Hydroxyzine Hcl 25 Mg Tablet) 25 mg PO Q8H PRN PRN Reason: anxiety/restlessness Last Admin: 03/21/22 15:03 Dose: 25 mg Documented By: SAVITA Omeprazole (Omeprazole 20 Mg Capsule.) 20 mg PO DAILY@0630 [facility] Last Admin: 03/24/22 06:32 Dose: 20 mg Documented By: FRANCOISE Pharmacy Consult (Consult Rx Perform Med Rec) 1 each MISCELLANE ONCE PRN PRN Reason: Consult order Pramipexole Dihydrochloride (Pramipexole Di-Hcl 0.125 Mg Tablet) 0.125 mg PO BID [facility] Last Admin: 03/24/22 09:51 Dose: 0.125 mg Documented By: JASPAL Sodium Chloride (0.9 % Sodium Chloride Flush 3 Ml Syringe) 3 ml IVFLUSH QSHIFT [facility] Last Admin: 03/24/22 09:51 Dose: 3 ml Documented By: JASPAL Thiamine HCl (Thiamine Hcl 100 Mg Tablet) 100 mg PO DAILY [facility] Last Admin: 03/24/22 09:51 Dose: 100 mg Documented By: JASPAL Labs CBC & Chem 7: 03/24/22 05:50 03/24/22 05:50 Labs: Laboratory Results - last 24 hr 03/24/22 03/24/22 05:50 05:50 MCV 90.9 MCH 32.1 MCHC 35.3 H RDW 13.9 Plt Count 160 MPV 9.4 Absolute Nucleated RBC 0.000 Nucleated RBC % (auto) 0.0 Anion Gap 13 Estim Creat Clear Calc 31.7 Estimated GFR 34 Random Glucose 92 Calcium 10.6 H D Assessment and Plan (1) Acute metabolic encephalopathy: Status: Acute (2) Hypokalemia: Status: Acute (3) Acute kidney failure: Status: Acute (4) Hypercalcemia: Status: Acute Plan 71F PMH of low PTH hypercalcemia (work up ongoing), depression, gerd, moderate persistent asthma/copd, DM (resolved with weight loss), opiate dependence (no longer on suboxone), HTN, presented with ams, found to have reccurent hypercalcemia Acute Metabolic encephalopathy due to hypercalcemia Pending repeat intact calcium and PTH, pthrp within normal range, no obvious malignancy, though highly suspicious for malignancy due to weight loss and low PTH Trending down to 10.6 Received Zometa Discontinue normal saline and Lasix nephrology input appreciated, investigate for underlying malignancy Oncology input appreciated, SPEP, UPEP, K/L ratio Normal in SPEP and UPEP, pending kappa lambda and urine immunofixation Negative skeletal survey for any osteolytic lesions monitor BMP Breast lesion Left breast lesion noticed on CT scan evaluated by mammogram and ultrasound, no masses appreciated acute kidney injury Likely ATN due to dehydration from hypercalcemia and nephrogenic DI Creatinine improving at 1.5 hydrate and monitor BMP Hypokalemia Potassium of 3.2 To give replacement and follow BMP Hyponatremia Sodium 132, mild Likely secondary to IV fluids Monitor BMP history of diabetes resolved after weight loss mood disorder continue Cymbalta, BuSpar, aripiprazole GERD H2 venice, ppi moderate persistent asthma/copd stbale albuterol as needed opiate dependence not on suboxone anymore HTN no longer on hctz monitor for now dvt prophylaxis - hep sq DNR/DNI - per molst The patient will need overnight hospital stay for treatment of severe hypercalcemia, acute kidney injury, and close monitoring of labs to prevent possible decompensation pending safe discharge plan Quality Stroke Does the patient have a stroke diagnosis?: No VTE Prior VTE?: No VTE Risk Level:: Medical - moderate - high VTE Device Contraindication: Treatment Not Indicated VTE Drug Contraindication: N/A - Med Ordered
--- NOTE | 2022-03-24 12:24 | P.PNNP_ITS ---
Subjective Subjective Date of Service: 03/24/22 Interval history: The patient was seen and evaluated this morning Laying in bed, feels mild improvement and more alert and interactive Calcium better, creat improving Systemic review: Feels tired and report generalized weakness No chest pain, palpitation No shortness of breath or coughing No abdominal pain, nausea or vomiting No urinary symptoms Physical Exam Vital Signs: Vital Signs: Last Vital Signs Temp 98.6 F 03/24/22 11:34 Pulse 91 03/24/22 11:34 Resp 20 03/24/22 11:34 BP 137/69 03/24/22 11:34 Pulse Ox 98 03/24/22 11:34 O2 Del Method 03/24/22 11:34 O2 Flow Rate 1 03/24/22 11:34 BMI result Body Mass Index 25.5 Const: Other: Constitutional : Alert, interactive, very anxious Neck : Normal inspection, Supple Cardiovascular : RRR, no JVP, no lower extremity edema Respiratory : fair bilateral air entry, no crackles, wheezes or rhonchi Gastrointestinal: soft, lax, Normal bowel sounds, Non tender Skin : Warm, Dry Neurological : Alert & oriented to self and place, No focal deficit General: cooperative, no acute distress, lethargic and tired appearing Nutritional Appearance: average body habitus and thin Orientation/consciousness: lethargic and Other orientation findings (Disoriented to times) Limitations: no limitations HEENT: Head: Yes normal to inspection, Yes normocephalic and Yes atraumatic General nose exam: Normal external nose present Face and sinus: Yes normal facial exam Mouth: Normal oral and palatal mucosa present Throat: Yes posterior oropharynx normal Eyes: EOM: EOMs intact bilaterally Neck: Neck: Yes normal visual inspection, Yes full ROM, Yes no meningeal signs and Yes supple Thyroid: Thyroid normal Chest: Other: Left breast is pendulous with no overlying skin changes. Nipple discharge and nipple retraction identified. No definite palpable mass appreciated to my examination. No enlarged lymph nodes. Right breast: No palpable mass, skin change, nipple discharge, or enlarged lymph nodes. Chest palpation & inspection: normal inspection of the chest Resp: Effort & Inspection: normal respiratory effort Auscultation: clear to auscultation bilaterally and diminished lung sounds Cardio: Jugular venous distension: no JVD Rate: regular rate Rhythm: regular rhythm GI: Other: Soft and nondistended, nontender to palpation. Inspection: Yes normal to inspection Palpation (GI): Soft to palpation, not firm, nontender and no guarding Skin: Other: Warm, dry, no rash General skin exam: no rashes or lesions noted, elasticity normal and turgor normal Lesions: no lesions Rashes: no rashes Neuro: General: moves all extremities, no meningeal signs and no focal motor deficits Cranial nerves: Yes CN's II-XII intact bilaterally Objective Data Labs CBC & Chem 7: 03/24/22 05:50 03/24/22 05:50 Labs: Laboratory Results - last 24 hr 03/24/22 03/24/22 05:50 05:50 WBC 4.4 L RBC 2.43 L Hgb 7.8 L Hct 22.1 L MCV 90.9 MCH 32.1 MCHC 35.3 H RDW 13.9 Plt Count 160 MPV 9.4 Absolute Nucleated RBC 0.000 Nucleated RBC % (auto) 0.0 Sodium 134 L Potassium 3.2 L Chloride 101 Carbon Dioxide 23 Anion Gap 13 BUN 24 H Creatinine 1.49 H Estim Creat Clear Calc 31.7 Estimated GFR 34 Random Glucose 92 Calcium 10.6 H D Microbiology Microbiology Results: Microbiology 03/20/22 07:05 Blood - Venous Blood Culture - Preliminary No growth after 48 hours. 03/20/22 07:05 Blood - Venous Blood Culture - Preliminary No growth after 48 hours. Procedures Date of Service Date of Service: 03/24/22 Assessment & Plan Assessment and plan (1) Acute kidney failure: Status: Acute (2) Hypercalcemia: Status: Acute (3) Acute metabolic encephalopathy: Status: Acute Plan 71F PMH of low PTH hypercalcemia (work up ongoing), depression, gerd, moderate persistent asthma/copd, DM (resolved with weight loss), opiate dependence (no longer on suboxone), HTN, presented with ams, found to have recurent hype rcalcemia and CARMENCITA 1) Acute kidney failure: ?Status:?Acute (2) Hypercalcemia: ?Status:?Acute ?Assessment and Plan: Pt with CARMENCITA in the setting of severe hypercalcemia; etiology unclear: ?maligancy or myeloma-await free kappa: lambda and immunofixation and chest CT. Calcium better after zometa. CARMENCITA likely due to ATN from hypercalcemia. Kidneys normal by CT in December (3) Hypokalemia: ?Status:?Acute ?Assessment and Plan: check urine K, replete; now off HCTZ (4) Breast mass, left: ?Status:?Acute Recommend: Stop IVf now; await SPEP and IF and free light chains; replete K; do not resume HCTZ Time Spent With Patient Time: : Progress Note: Quality Stroke Does the patient have a stroke diagnosis?: No
[2022-03-24] MEDS: Potassium Chloride Packet 20 MEQ PACKET 40 MEQ PO (12:50)
[2022-03-24 16:00] VITALS: BP 145/70; PULSE 91; RESP 20; TEMP 36.6; O2SAT 99
[2022-03-24 19:29] VITALS: BP 145/69; PULSE 102; RESP 18; TEMP 37.1; O2SAT 99
[2022-03-24] MEDS: Acetaminophen 325 MG TABLET 650 MG PO (20:21)
[2022-03-24 23:29] VITALS: BP 153/79; PULSE 93; RESP 17; TEMP 37.1; O2SAT 97
[2022-03-25] VITALS (7 sets, daily range): BP systolic 109–138; BP diastolic 64–84; PULSE 80–97; RESP 14–20; TEMP 36.6–37.1; O2SAT 94–99
[2022-03-25] MEDS: Omeprazole 20 MG CAPSULE.DR PO (05:21)
[2022-03-25] MEDS: Heparin Sodium,Porcine 5,000 UNIT/ML VIAL 5000 UNIT SUBCUT ×2 (05:21→13:46)
[2022-03-25] MEDS: hydrOXYzine HCL 25 MG TABLET PO ×2 (05:22→21:20)
[2022-03-25 06:38] LABS: Anion Gap 15 (12-20); Blood Urea Nitrogen 24 mg/dL (9-16); Calcium 10.2 mg/dL (8.4-10.2); Carbon Dioxide 19 mmol/L (22-29); Chloride 98 mmol/L (96-108); Creatinine Clr Calc Pharmacy 32.4; Estimated Glomerular Filt Rate 35; Glucose Random 101 mg/dL (60-115); Potassium 3.4 mmol/L (3.3-5.1); Sodium 129 mmol/L (135-145)
[2022-03-25] MEDS: DULoxetine HCl 60 MG CAPSULE.DR PO ×2 (07:47→21:19)
[2022-03-25] MEDS: busPIRone HCl 5 MG TABLET 15 MG PO ×2 (07:47→21:19)
[2022-03-25] MEDS: Thiamine HCL 100 MG TABLET PO (07:47)
[2022-03-25] MEDS: Pramipexole Di-HCL 0.125 MG TABLET PO ×2 (07:47→21:19)
[2022-03-25] MEDS: ARIPiprazole 2 MG TABLET 4 MG PO (07:47)
[2022-03-25] MEDS: Ferrous Sulfate 324 MG TABLET.DR PO (07:47)
[2022-03-25] MEDS: Docusate Sodium 100 MG CAPSULE PO ×2 (07:48→21:19)
[2022-03-25] MEDS: Furosemide 40 MG/4 ML VIAL IVPUSH (07:48)
[2022-03-25] MEDS: 0.9 % Sodium Chloride Flush 3 ML SYRINGE IVFLUSH (07:48)
[2022-03-25] MEDS: 0.9 % Sodium Chloride 1,000 ML 100 ML IVCONT ×2 (09:36→17:45)
[2022-03-25] MEDS: Fluticasone Propionate 100 MCG BLST.W.DEV 2 PUFF INHALE (11:20)
--- NOTE | 2022-03-25 12:00 | HO.PM.IMPN ---
Subjective Subjective Date of Service: 03/25/22 Interval History: The patient was seen and evaluated this morning Laying in bed, feels Better today more alert and interactive Hemoglobin stable around 7-8, no active bleeding noticed Calcium dropped to 10.2 Sodium dropped to 129 Denies any fever, chills No reported other overnight events. Systemic review: Feels tired and report generalized weakness improving No chest pain, palpitation No shortness of breath or coughing No abdominal pain, nausea or vomiting No urinary symptoms Physical Exam Vital Signs: Vital Signs: Last Vital Signs Temp 97.8 F 03/25/22 11:42 Pulse 96 03/25/22 11:42 Resp 20 03/25/22 11:42 BP 109/66 03/25/22 11:42 Pulse Ox 98 03/25/22 11:42 O2 Del Method 03/25/22 11:42 O2 Flow Rate 1 03/25/22 07:57 BMI result Body Mass Index 25.5 Const: Other: Constitutional : Alert, interactive, less anxious Neck : Normal inspection, Supple Cardiovascular : RRR, no JVP, no lower extremity edema Respiratory : fair bilateral air entry, no crackles, wheezes or rhonchi Gastrointestinal: soft, lax, Normal bowel sounds, Non tender Skin : Warm, Dry Neurological : Alert & oriented to self and place, No focal deficit Objective Data Active Medications Acetaminophen (Acetaminophen 325 Mg Tablet) 650 mg PO Q6H PRN PRN Reason: Pain, Mild (Pain Scale 1-3) Last Admin: 03/24/22 20:21 Dose: 650 mg Documented By: MICHAEL Aripiprazole (Aripiprazole 2 Mg Tablet) 4 mg PO DAILY [facility] Last Admin: 03/25/22 07:47 Dose: 4 mg Documented By: ESCOBAR Buspirone HCl (Buspirone Hcl 5 Mg Tablet) 15 mg PO BID [facility] Last Admin: 03/25/22 07:47 Dose: 15 mg Documented By: ESCOBAR Docusate Sodium (Docusate Sodium 100 Mg Capsule) 100 mg PO BID [facility] Last Admin: 03/25/22 07:48 Dose: 100 mg Documented By: ESCOBAR Duloxetine HCl (Duloxetine Hcl 60 Mg Capsule.) 60 mg PO BID [facility] Last Admin: 03/25/22 07:47 Dose: 60 mg Documented By: ESCOBAR Ferrous Sulfate (Ferrous Sulfate 324 Mg Tablet.) 324 mg PO DAILY [facility] Last Admin: 03/25/22 07:47 Dose: 324 mg Documented By: ESCOBAR Fluticasone Propionate (Fluticasone Propionate 100 Mcg Blst.W.Dev) 2 puff INHALE BID [facility] Last Admin: 03/25/22 11:20 Dose: 2 puff Documented By: ESCOBAR Heparin Sodium (Porcine) (Heparin Sodium,Porcine 5,000 Unit/Ml Vial) 5,000 unit SUBCUT Q8H [facility] Last Admin: 03/25/22 05:21 Dose: 5,000 unit Documented By: MICHAEL Hydroxyzine HCl (Hydroxyzine Hcl 25 Mg Tablet) 25 mg PO Q8H PRN PRN Reason: anxiety/restlessness Last Admin: 03/25/22 05:22 Dose: 25 mg Documented By: MICHAEL Sodium Chloride (Ns) 1,000 mls @ 100 mls/hr IVCONT .Q10H [facility] Stop: 03/25/22 22:00 Last Admin: 03/25/22 09:36 Dose: 100 mls/hr Documented By: ESCOBAR Omeprazole (Omeprazole 20 Mg Capsule.) 20 mg PO DAILY@0630 [facility] Last Admin: 03/25/22 05:21 Dose: 20 mg Documented By: MICHALE Pharmacy Consult (Consult Rx Perform Med Rec) 1 each MISCELLANE ONCE PRN PRN Reason: Consult order Pramipexole Dihydrochloride (Pramipexole Di-Hcl 0.125 Mg Tablet) 0.125 mg PO BID [facility] Last Admin: 03/25/22 07:47 Dose: 0.125 mg Documented By: ESCOBAR Sodium Chloride (0.9 % Sodium Chloride Flush 3 Ml Syringe) 3 ml IVFLUSH QSHIFT [facility] Last Admin: 03/25/22 07:48 Dose: 3 ml Documented By: ESCOBAR Thiamine HCl (Thiamine Hcl 100 Mg Tablet) 100 mg PO DAILY [facility] Last Admin: 03/25/22 07:47 Dose: 100 mg Documented By: ESCOBAR Labs CBC & Chem 7: 03/24/22 05:50 03/25/22 05:42 Labs: Laboratory Results - last 24 hr 03/25/22 05:42 Anion Gap 15 Estim Creat Clear Calc 32.4 Estimated GFR 35 Random Glucose 101 Calcium 10.2 Microbiology Microbiology Results: Microbiology 03/20/22 07:05 Blood Culture - Final Blood - Venous No growth after 5 days. 03/20/22 07:05 Blood Culture - Final Blood - Venous No growth after 5 days. Assessment and Plan (1) Acute metabolic encephalopathy: Status: Acute (2) Hypokalemia: Status: Acute (3) Acute kidney failure: Status: Acute (4) Hyponatremia: Status: Acute (5) Hypercalcemia: Status: Acute Plan 71F PMH of low PTH hypercalcemia (work up ongoing), depression, gerd, moderate persistent asthma/copd, DM (resolved with weight loss), opiate dependence (no longer on suboxone), HTN, presented with ams, found to have reccurent hypercalcemia Hyponatremia Sodium of 129 Secondary to IV Lasix to give gentle hydration and follow BMP tomorrow morning Acute Metabolic encephalopathy due to hypercalcemia Pending repeat intact calcium and PTH, pthrp within normal range, no obvious malignancy, though highly suspicious for malignancy due to weight loss and low PTH Trending down to 10.2 Received [facility] nephrology input appreciated, investigate for underlying malignancy Oncology input appreciated, SPEP, UPEP, K/L ratio Normal in SPEP and UPEP, pending kappa lambda and urine immunofixation Negative skeletal survey for any osteolytic lesions monitor BMP Breast lesion Left breast lesion noticed on CT scan evaluated by mammogram and ultrasound, no masses appreciated acute kidney injury Likely ATN due to dehydration from hypercalcemia and nephrogenic DI Creatinine improving at 1.5 hydrate and monitor BMP Hypokalemia Potassium of 3.4 To give replacement and follow BMP Hyponatremia Sodium 132, mild Likely secondary to IV fluids Monitor BMP history of diabetes resolved after weight loss mood disorder continue Cymbalta, BuSpar, aripiprazole GERD H2 vneice, ppi moderate persistent asthma/copd [place]ale albuterol as needed opiate dependence not on suboxone anymore HTN no longer on hctz monitor for now dvt prophylaxis - hep sq DNR/DNI - per molst The patient will need overnight hospital stay for treatment of hyponatremia to prevent possible decompensation pending safe discharge plan Quality Stroke Does the patient have a stroke diagnosis?: No VTE Prior VTE?: No VTE Risk Level:: Medical - moderate - high VTE Device Contraindication: Treatment Not Indicated VTE Drug Contraindication: N/A - Med Ordered
--- NOTE | 2022-03-25 13:20 | MHC.CLN ---
F/U PO INTAKE 50% DIET RX: REGULAR-APPROPRIATE PT RECEIVING ENSURE BID TO INCREASE KCALS PROVIDES 700KCALS, 40G PROTEIN CONTINUE TO MONITOR PO INTAKE CLOSELY
[2022-03-25] MEDS: Acetaminophen 325 MG TABLET 650 MG PO (13:44)
[2022-03-25] MEDS: Potassium Chloride Packet 20 MEQ PACKET 40 MEQ PO (13:46)
[2022-03-25 14:32] LABS: Kappa Light Chain, Free Serum 60.3 mg/L (3.3-19.4); Kappa/Lambda Lt Ch Free Ratio 1.45 (0.26-1.65); Lambda Light Chain, Free Serum 41.5 mg/L (5.7-26.3)
[2022-03-25 14:53] LABS: COVID-19 Test Negative (Negative)
--- NOTE | 2022-03-25 15:33 | MHC.CM.PN ---
Patient has been accepted for STR by [facility]. [facility] has authorized STR. DP To [facility] via [facility] program. The dc was held due to hypo Na+ per MD rounds.
--- NOTE | 2022-03-25 16:50 | P.PNNP_ITS ---
Subjective Subjective Date of Service: 03/25/22 Interval history: Seen and examined, events ntoed Physical Exam Vital Signs: Vital Signs: Last Vital Signs Temp 98.1 F 03/25/22 15:31 Pulse 94 03/25/22 15:31 Resp 14 03/25/22 15:31 BP 122/65 03/25/22 15:31 Pulse Ox 97 03/25/22 15:31 O2 Del Method 03/25/22 15:31 O2 Flow Rate 1 03/25/22 15:31 BMI result Body Mass Index 25.5 Const: Other: Constitutional : Alert, interactive, very anxious Neck : Normal inspection, Supple Cardiovascular : RRR, no JVP, no lower extremity edema Respiratory : fair bilateral air entry, no crackles, wheezes or rhonchi Gastrointestinal: soft, lax, Normal bowel sounds, Non tender Skin : Warm, Dry Neurological : Alert & oriented to self and place, No focal deficit General: cooperative, no acute distress, lethargic and tired appearing Nutritional Appearance: average body habitus and thin Orientation/consciousness: lethargic and Other orientation findings (Disoriented to times) Limitations: no limitations HEENT: Head: Yes normal to inspection, Yes normocephalic and Yes atraumatic General nose exam: Normal external nose present Face and sinus: Yes normal facial exam Mouth: Normal oral and palatal mucosa present Throat: Yes posterior oropharynx normal Eyes: EOM: EOMs intact bilaterally Neck: Neck: Yes normal visual inspection, Yes full ROM, Yes no meningeal signs and Yes supple Thyroid: Thyroid normal Chest: Other: Left breast is pendulous with no overlying skin changes. Nipple discharge and nipple retraction identified. No definite palpable mass appreciated to my examination. No enlarged lymph nodes. Right breast: No palpable mass, skin change, nipple discharge, or enlarged lymph nodes. Chest palpation & inspection: normal inspection of the chest Resp: Effort & Inspection: normal respiratory effort Auscultation: clear to auscultation bilaterally and diminished lung sounds Cardio: Jugular venous distension: no JVD Rate: regular rate Rhythm: regular rhythm GI: Other: Soft and nondistended, nontender to palpation. Inspection: Yes normal to inspection Palpation (GI): Soft to palpation, not firm, nontender and no guarding Skin: Other: Warm, dry, no rash General skin exam: no rashes or lesions noted, elasticity normal and turgor normal Lesions: no lesions Rashes: no rashes Neuro: General: moves all extremities, no meningeal signs and no focal motor deficits Cranial nerves: Yes CN's II-XII intact bilaterally Objective Data Labs CBC & Chem 7: 03/24/22 05:50 03/25/22 05:42 Labs: Laboratory Results - last 24 hr 03/23/22 03/25/22 03/25/22 05:49 05:42 14:03 Sodium 129 L Potassium 3.4 Chloride 98 Carbon Dioxide 19 L Anion Gap 15 BUN 24 H Creatinine 1.46 H Estim Creat Clear Calc 32.4 Estimated GFR 35 Random Glucose 101 Calcium 10.2 Free [place] LC, Quant 60.3 H Free Lambda LC, Quant 41.5 H Free [place]/Lambda Ratio 1.45 COVID-19 (RANJIT) Negative COVID-19 Clin Com See Note Microbiology Microbiology Results: Microbiology 03/20/22 07:05 Blood - Venous Blood Culture - Final No growth after 5 days. 03/20/22 07:05 Blood - Venous Blood Culture - Final No growth after 5 days. Procedures Date of Service Date of Service: 03/25/22 Assessment & Plan Assessment and plan (1) Acute kidney failure: Status: Acute (2) Hypercalcemia: Status: Acute (3) Acute metabolic encephalopathy: Status: Acute Plan 1. Recurrent severre Hyper Ca ( December and now again) w/u unrevealing as to cause; need to get vit D 1,25 and shahida level to r/o granulomatous causes for hyperCa Is it possible that simply immobilization along with Ca/vit suppl can be the culprit Definite need to avoid HCTZ--would list thiaxzed as a majir drug intolerance 2. CARMENCITA: d/t HyperCa: resolving 3. HypoNa: multifact REC: PO fluid restriction and track SNa; track Ca, vit D level ordered Time Spent With Patient Time: Total time spent is greater than 50% in coordination of care (as documented) at patient's floor/unit and/or counseling patient: Progress Note: Quality Stroke Does the patient have a stroke diagnosis?: No
[2022-03-25 17:22] LABS: Calcium (PTHI) 11.6 mg/dL (8.6-10.4); PTHI <6 pg/mL (16-77)
--- NOTE | 2022-03-25 18:08 | PC.NURSE ---
Patient up OOB to chair, ambulates steady gait to bathroom with walker. c/o of mild headache
[2022-03-26] MEDS: Heparin Sodium,Porcine 5,000 UNIT/ML VIAL 5000 UNIT SUBCUT ×2 (00:36→06:47)
[2022-03-26] MEDS: Acetaminophen 325 MG TABLET 650 MG PO ×2 (00:36→10:26)
[2022-03-26 04:00] VITALS: BP 140/74; PULSE 92; RESP 16; TEMP 36.9; O2SAT 92; O2SAT 98
[2022-03-26] MEDS: Omeprazole 20 MG CAPSULE.DR PO (06:47)
[2022-03-26 07:00] LABS: Anion Gap 12 (12-20); Blood Urea Nitrogen 22 mg/dL (9-16); Carbon Dioxide 23 mmol/L (22-29); Chloride 101 mmol/L (96-108); Creatinine Clr Calc Pharmacy 34.3; Estimated Glomerular Filt Rate 37; Glucose Random 111 mg/dL (60-115); Potassium 2.8 mmol/L (3.3-5.1); Sodium 133 mmol/L (135-145)
[2022-03-26 07:17] VITALS: BP 150/76; PULSE 85; RESP 16; TEMP 36.9; O2SAT 99
[2022-03-26 07:19] LABS: Vitamin D 25-OH Total 27.9 ng/mL (>30)
[2022-03-26] MEDS: Docusate Sodium 100 MG CAPSULE PO (09:29)
[2022-03-26] MEDS: Ferrous Sulfate 324 MG TABLET.DR PO (09:29)
[2022-03-26] MEDS: Thiamine HCL 100 MG TABLET PO (09:29)
[2022-03-26] MEDS: ARIPiprazole 2 MG TABLET 4 MG PO (09:29)
[2022-03-26] MEDS: DULoxetine HCl 60 MG CAPSULE.DR PO (09:29)
[2022-03-26] MEDS: Potassium Chloride Packet 20 MEQ PACKET 40 MEQ PO ×2 (09:29→10:27)
[2022-03-26] MEDS: Pramipexole Di-HCL 0.125 MG TABLET PO (09:29)
[2022-03-26] MEDS: busPIRone HCl 5 MG TABLET 15 MG PO (09:29)
[2022-03-26] MEDS: 0.9 % Sodium Chloride Flush 3 ML SYRINGE IVFLUSH (09:30)
[2022-03-26 09:55] VITALS: BP 150/76; PULSE 85; O2SAT 99
[2022-03-26 11:10] VITALS: BP 121/62; PULSE 88; RESP 18; TEMP 36.6; O2SAT 99
--- NOTE | 2022-03-26 11:54 | P.DS_ITS ---
DS: Providers Provider Date of Service: 03/26/22 Date of admission: 03/19/22 14:46 Primary care physician: Lucia Kitchen NP Consults: 03/19/22 14:45 Consult to Nephrology Routine Consulting Provider: Jerrod Philip Reason for consultation: hypocalcemia, suppressed pth 03/20/22 11:46 Consult to Hematology / Oncology Routine Consulting Provider: Trenton Aviles Reason for consultation: Hypercalcemia, Breast lesion ? , for eval and rec. 03/22/22 08:38 Consult to General Surgery Routine Consulting Provider: Dong Ny Reason for consultation: Left breast mass for biopsy DS: Diagnosis Discharge Diagnosis (1) Acute kidney failure: Status: Acute (2) Hypercalcemia: Status: Acute (3) Acute metabolic encephalopathy: Status: Acute (4) Hyponatremia: Status: Acute (5) Hypokalemia: Status: Acute DS: Summary Hospital Course Hospital Course: Admission note HPI 71F PMH of low PTH hypercalcemia (work up ongoing), depression, gerd, moderate persistent asthma/copd, DM (resolved with weight loss), opiate dependence (no longer on suboxone), HTN, presented with ams. patient had been admitted to [facility] december 2021 for hypercalcemia, found to have low pth, work up including CT abd and chest did not reveal malignancy. patient had been at home with VNA. on day of presentation VNA found patient lethargic and confused so called EMS. in ED found to be hypercalcemic - corrected of 18.5. CARMENCITA. Hospital course The patient was admitted to the hospital?for evaluation of Acute Metabolic encephalopathy due to hypercalcemia. Treated with IV fluid, Lasix and received Zometa as he was evaluated by Nephrology and Hematology. Investigation for underlying malignancy showed no evidence of any masses as resumed left breast lesion was evaluated by mammogram at [facility] that was negative for any masses. An ultrasound was done and did not show any masses as well. Skeletal survey was done showing no evidence of osteolytic lesions. Calcium level trended down to normal during the hospital stay. Blood work was consistent with low PTH and high intact calcium. Normal in SPEP and UPEP, pending kappa lambda and urine immunofixation at time of discharge to be followed as outpatient with Nephrology. Breast lesion Left breast lesion noticed on CT scan evaluated by mammogram and ultrasound, no masses appreciated. acute kidney injury Noted at time of presentation. 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 Creatinine improved to 1.3 at time of discharge. Hypokalemia Potassium dropped below 3 responded well to replacement. To follow with BMP after discharge. ?Hyponatremia Sodium level improved to 133 at the day of discharge. To be followed with BMP. Physical deconditioning Patient was evaluated by Physical therapy who recommended short-term rehab stay. Discontinue vitamin-D and vitamin supplement Will repeat blood test next week to follow up with Nephrology dr Gibbons as outpatient The patient will likely need less than 30 days of rehabilitation at [facility]. Time Spent with Patient Time attestation: Total time spent providing and/or coordinating discharge services: Discharge coordination time: Greater than 30 minutes Quality: Safe Use of Opioids Does Pt have an Active Cancer Diagnosis on the Problem List?: No Quality: Stroke Does the patient have a stroke diagnosis?: No Physical Exam Vital Signs: Vital Signs: Last Vital Signs Temp 98 F 03/26/22 11:10 Pulse 88 03/26/22 11:10 Resp 18 03/26/22 11:10 BP 121/62 03/26/22 11:10 Pulse Ox 99 03/26/22 11:10 O2 Del Method 03/26/22 11:10 O2 Flow Rate 2 03/26/22 07:17 BMI result Body Mass Index 25.5 Const: Other: Constitutional : Alert, interactive, less anxious Neck : Normal inspection, Supple Cardiovascular : RRR, no JVP, no lower extremity edema Respiratory : fair bilateral air entry, no crackles, wheezes or rhonchi Gastrointestinal: soft, lax, Normal bowel sounds, Non tender Skin : Warm, Dry Neurological : Alert & oriented to self and place, No focal deficit DS: Data Data Completed and Pending Labs on day of discharge: Laboratory Results - last 24 hr 03/23/22 03/25/22 03/26/22 05:49 14:03 06:24 Sodium 133 L Potassium 2.8 L Chloride 101 Carbon Dioxide 23 Anion Gap 12 BUN 22 H Creatinine 1.38 Estim Creat Clear Calc 34.3 Estimated GFR 37 Random Glucose 111 Calcium 10.0 25-OH Vitamin D Total PTH Intact <6 L Calcium (PTH Intact) 11.6 H Free [place] LC, Quant 60.3 H Free [place] LC, Quant 41.5 H Free [place]/Lambda Ratio 1.45 COVID-19 (RANJIT) Negative COVID-19 Clin Com See Note 03/26/22 06:24 Sodium Potassium Chloride Carbon Dioxide Anion Gap BUN Creatinine Estim Creat Clear Calc Estimated GFR Random Glucose Calcium 25-OH Vitamin D Total 27.9 PTH Intact Calcium (PTH Intact) Free [place] LC, Quant Free [place]ambda LC, Quant Free [place]/Lambda Ratio COVID-19 (RANJIT) COVID-19 Clin Com Imaging Chest x-ray: Radiologist's impression: ITS Impressions Head CT 03/19/22 10:55 IMPRESSION: No acute intracranial abnormality. Chest X-Ray 03/19/22 11:31 IMPRESSION: -Coarsening bronchiolar markings similar to prior exam. -No lobar or segmental airspace consolidation or effusion. Breast Ultrasound 03/22/22 12:11 IMPRESSION: -No skin thickening or edema tracking in soft tissue planes. -No solid mass or architectural abnormality on ultrasound. ASSESSMENT: BI-RADS 3: Probably Benign RECOMMENDATION: -Bilateral diagnostic mammography. Bone Osseous Survey 03/23/22 11:48 IMPRESSION: No concerning lytic or blastic osseous lesion. Moderate stool burden. Discharge Plan Discharge Patient Disposition: [facility] Discharge Diagnosis: Hypercalcemia Acute kidney injury Hyponatremia Referrals: [facility] [Outside] - 1 Week Lucia Kitchen NP [Primary Care Provider] - 1 Week Discharge Medications: New docusate sodium 100 mg Capsule 100 mg PO BID 30 Days Qty: 60 0RF Continued buspirone 15 mg tablet 15 mg PO BID duloxetine 60 mg capsule,delayed release(DR/EC) 60 mg PO BID thiamine HCl (vitamin B1) 100 mg Tablet 100 mg PO DAILY acetaminophen 500 mg Tablet 1,000 mg PO Q8H pantoprazole 40 mg Tablet,Delayed Release (Dr/Ec) 40 mg PO DAILY [place] Nasal 0.65 % Aerosol,[place] 2 spray INTRANASAL QID PRN (Reason: Nasal Congestion) Icy Hot 30-10 % Cream 1 appl TOPICAL TID PRN (Reason: Muscle Pain) Rx Instructions: to back albuterol sulfate 90 mcg/actuation HFA aerosol inhaler 2 puff inhalation Q6H PRN (Reason: shortness of breath or wheezing) fluticasone propionate [Flovent HFA] 110 mcg/actuation HFA aerosol inhaler 2 puff inhalation BID fexofenadine 60 mg Tablet 60 mg PO DAILY loperamide 2 mg Tablet 2 mg PO Q6H PRN (Reason: Loose Stool) ferrous sulfate 325 mg (65 mg iron) tablet 1 tab PO DAILY promethazine 25 mg Tablet 25 mg PO QID PRN (Reason: Nausea And Vomiting) aripiprazole 2 mg Tablet 4 mg PO DAILY pramipexole 0.125 mg tablet 0.125 mg PO BID Discontinued cholecalciferol (vitamin D3) 125 mcg (5,000 unit) Capsule 125 mcg PO DAILY [place] 0.4 mg-300 mcg- 250 mcg Tablet 1 tab PO DAILY Discharge Orders: Discharge Order (Routine); Ordered 03/26/22 Ordered By: Satnam Perez Diet: Advance to usual diet Activity on Discharge: As tolerated Stand Alone Forms: Patient Portal Discharge page Other Ambulatory Orders: Basic Metabolic Panel (Routine) Timeframe: 1 Week Facility: [facility] - Location: Laboratory Ordered By: Satnam Perez Care Plan Goals: Read below Health Concerns: Read below Plan of Treatment: Read below Assessment: You were admitted to the hospital for evaluation of altered mentation. Found to have an elevated calcium level with acute kidney injury. Responded well to treatment with IV fluids, Lasix and bisphosphonate. Evaluated by Hematology and Nephrology as no evidence of cancer was found on your images. Discontinue vitamin-D and vitamin supplement Will repeat blood test next week to follow up with Nephrology as outpatient
--- NOTE | 2022-03-26 12:00 | MHC.CM.PN ---
IMM 03/26/22 Patient is discharged to [facility]. Sofia silveira will provide transport. [employer] supervisor scheduled for 3:30pm today. all dc info has been sent to the facility.
--- NOTE | 2022-03-26 12:07 | P.PNGS_ITS ---
Subjective Subjective Date of Service: 03/26/22 Interval history: No new breast complaints Physical Exam Vital Signs: Vital Signs: Last Vital Signs Temp 98 F 03/26/22 11:10 Pulse 88 03/26/22 11:10 Resp 18 03/26/22 11:10 BP 121/62 03/26/22 11:10 Pulse Ox 99 03/26/22 11:10 O2 Del Method 03/26/22 11:10 O2 Flow Rate 2 03/26/22 07:17 BMI result Body Mass Index 25.5 Const: General: no acute distress and tired appearing Nutritional Appearance: thin Chest: Other: Exam deferred Resp: Effort & Inspection: normal respiratory effort Skin: Other: Warm, dry, no rash Objective Data Active Medications Acetaminophen (Acetaminophen 325 Mg Tablet) 650 mg PO Q6H PRN PRN Reason: Pain, Mild (Pain Scale 1-3) Last Admin: 03/26/22 10:26 Dose: 650 mg Documented By: THANH Aripiprazole (Aripiprazole 2 Mg Tablet) 4 mg PO DAILY [facility] Last Admin: 03/26/22 09:29 Dose: 4 mg Documented By: THANH Buspirone HCl (Buspirone Hcl 5 Mg Tablet) 15 mg PO BID [facility] Last Admin: 03/26/22 09:29 Dose: 15 mg Documented By: THANH Docusate Sodium (Docusate Sodium 100 Mg Capsule) 100 mg PO BID [facility] Last Admin: 03/26/22 09:29 Dose: 100 mg Documented By: THANH Duloxetine HCl (Duloxetine Hcl 60 Mg Capsule.) 60 mg PO BID [facility] Last Admin: 03/26/22 09:29 Dose: 60 mg Documented By: THANH Ferrous Sulfate (Ferrous Sulfate 324 Mg Tablet.) 324 mg PO DAILY [facility] Last Admin: 03/26/22 09:29 Dose: 324 mg Documented By: THANH Fluticasone Propionate (Fluticasone Propionate 100 Mcg Blst.W.Dev) 2 puff INHALE BID [facility] Last Admin: 03/25/22 11:20 Dose: 2 puff Documented By: ESCOBAR Heparin Sodium (Porcine) (Heparin Sodium,Porcine 5,000 Unit/Ml Vial) 5,000 unit SUBCUT Q8H [facility] Last Admin: 03/26/22 06:47 Dose: 5,000 unit Documented By: MELINDA Hydroxyzine HCl (Hydroxyzine Hcl 25 Mg Tablet) 25 mg PO Q8H PRN PRN Reason: anxiety/restlessness Last Admin: 03/25/22 21:20 Dose: 25 mg Documented By: MELINDA Omeprazole (Omeprazole 20 Mg Capsule.Dr) 20 mg PO DAILY@0630 [facility] Last Admin: 03/26/22 06:47 Dose: 20 mg Documented By: MELINDA Pharmacy Consult (Consult Rx Perform Med Rec) 1 each MISCELLANE ONCE PRN PRN Reason: Consult order Pramipexole Dihydrochloride (Pramipexole Di-Hcl 0.125 Mg Tablet) 0.125 mg PO BID [facility] Last Admin: 03/26/22 09:29 Dose: 0.125 mg Documented By: THANH Sodium Chloride (0.9 % Sodium Chloride Flush 3 Ml Syringe) 3 ml IVFLUSH QSHIFT [facility] Last Admin: 03/26/22 09:30 Dose: 3 ml Documented By: THANH Thiamine HCl (Thiamine Hcl 100 Mg Tablet) 100 mg PO DAILY [facility] Last Admin: 03/26/22 09:29 Dose: 100 mg Documented By: THANH Labs CBC & Chem 7: 03/24/22 05:50 03/26/22 06:24 Labs: Laboratory Results - last 24 hr 03/23/22 03/25/22 03/26/22 05:49 14:03 06:24 Anion Gap 12 Estim Creat Clear Calc 34.3 Estimated GFR 37 Random Glucose 111 Calcium 10.0 25-OH Vitamin D Total PTH Intact <6 L Calcium (PTH Intact) 11.6 H Free [place] LC, Quant 60.3 H Free [place] LC, Quant 41.5 H Free [place]/Lambda Ratio 1.45 COVID-19 (RANJIT) Negative COVID-19 Clin Com See Note 03/26/22 06:24 Anion Gap Estim Creat Clear Calc Estimated GFR Random Glucose Calcium 25-OH Vitamin D Total 27.9 PTH Intact Calcium (PTH Intact) Free [place] LC, Quant Free [place] LC, Quant Free [place]/Lambda Ratio COVID-19 (RANJIT) COVID-19 Clin Com Microbiology Microbiology Results: Microbiology 03/20/22 07:05 Blood Culture - Final Blood - Venous No growth after 5 days. 03/20/22 07:05 Blood Culture - Final Blood - Venous No growth after 5 days. Procedures Date of Service Date of Service: 03/26/22 Progress Note: A&P Assessment and plan (1) Breast mass, left: Status: Acute Plan 71-year-old female patient found to possibly have some skin thickening on CT of the chest however on examination no definite skin thickening noted to my examination. Subsequent ultrasound of the breast also revealed no suspicious findings in the left breast. Mammogram is not available as an inpatient and apparently cannot be performed. No definite indication for breast biopsy at this time. Patient will need a mammogram as an outpatient, but has not followed through in the past. Will sign off for now. Please re-consult for any new concerns. Time Spent With Patient Time: Total time spent is greater than 50% in coordination of care (as documented) at patient's floor/unit and/or counseling patient: Quality Stroke Does the patient have a stroke diagnosis?: No VTE Prior VTE?: No VTE Risk Level:: Medical - moderate - high VTE Device Contraindication: Treatment Not Indicated VTE Drug Contraindication: N/A - Med Ordered
[2022-03-26 13:24] LABS: Anion Gap 12 (12-20); Blood Urea Nitrogen 20 mg/dL (9-16); Calcium 10.2 mg/dL (8.4-10.2); Carbon Dioxide 21 mmol/L (22-29); Chloride 104 mmol/L (96-108); Creatinine Clr Calc Pharmacy 36.1; Estimated Glomerular Filt Rate 40; Glucose Random 101 mg/dL (60-115); Potassium 3.8 mmol/L (3.3-5.1); Sodium 133 mmol/L (135-145)
[2022-04-01 15:36] LABS: VITAMIN D (1,25 OH) D3 42 pg/mL; Vit D (1,25-Dihydroxy) Total 42 pg/mL (18-72); Vitamin D (1,25 OH) D2 <8 pg/mL
[2022-04-29 10:27] LABS: PEU-Random Urine Creatinine 24; PEU-Random Urine Protein 22
[2022-04-29 10:29] LABS: PEU-Random Ur. Gamma Globulin 21; PEU-Random Urine A1 Globulin 6; PEU-Random Urine A2 Globulin 19; PEU-Random Urine Albumin 23; PEU-Random Urine Beta Globulin 31
[2022-04-29 10:33] LABS: PEU-Rand. Prot/Creat Ratio 917
== END 2022-03-26 15:30 | disposition skilled nursing facility (03) | DRG 640 ==
LOC: HO.ED 12:00 → HO.EDOVER 14:52 → HO.IMC 03-20 17:33
PROVIDERS: Internal Medicine; Internal Medicine Medical Oncology; Internal Medicine Nephrology; Admitting Provider Internal Medicine; Emergency Provider Emergency Medicine; PCP Hospitalist; Visit Provider Student in an Organized Health Care Education/Training Program
DX: E83.52 Hypercalcemia (principal); G93.41 Metabolic encephalopathy; N17.0 Acute kidney failure with tubular necrosis; F11.20 Opioid dependence, uncomplicated; E87.1 Hypo-osmolality and hyponatremia; J44.9 Chronic obstructive pulmonary disease, unspecified; Z66 Do not resuscitate; F32.A Depression, unspecified; E86.0 Dehydration; E87.6 Hypokalemia; I10 Essential (primary) hypertension; I48.91 Unspecified atrial fibrillation; J45.40 Moderate persistent asthma, uncomplicated; Z20.822 Contact with and (suspected) exposure to COVID-19; Z79.51 Long term (current) use of inhaled steroids; Z79.899 Other long term (current) drug therapy
CPT/HCPCS: 36415; 70450; 71045; 76641; 77075; 80048; 80053; 80076; 81001; 82272; 82306; 82570; 82652; 82784; 83521; 83605; 83970; 84156; 84165; 84166; 84484; 85025; 85027; 85610; 85730; 86334; 86335; 87040; 87635; 93005; 96361; 96365; 96375; 97116; 97161; 99285; J0696; J1940; J3489

== ENCOUNTER 2022-04-05 10:26 | Inpatient (IN) | payer OTHER, MEDICAID, SELFPAY ==
--- NOTE | ~2022-04-05 | XR_ITS ---
EXAMINATION: XR CHEST CLINICAL INFORMATION: Weakness. COMPARISON: Chest radiograph dated from 03/19/2022. TECHNIQUE: Frontal view of the chest was obtained. FINDINGS: Stable appearance of the cardiomediastinal silhouette. Unchanged mild interstitial thickening. No new focal airspace opacities, pleural effusions or pneumothorax. No acute osseous abnormalities. Redemonstration of nonspecific screw projecting over the left axillary region. 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 XR/XR chest 1V IMPRESSION: No acute cardiopulmonary findings.
--- NOTE | ~2022-04-05 | CT_ITS ---
EXAMINATION: CT HEAD WITHOUT CONTRAST CLINICAL INFORMATION: Weakness. COMPARISON: CT head dated from 03/19/2022. TECHNIQUE: Contiguous axial imaging was performed from the skull base to vertex without intravenous administration of contrast. This CT examination was performed using dose optimization techniques as appropriate, variously including the following: *Automated exposure control *Adjustment of mA and/or kV according to patient size (this includes techniques or standardized protocols for targeted exams where dose is matched to indication/reason for exam; i.e. extremities or head) *Use of iterative reconstruction technique DLP: 632 mGy-cm FINDINGS: There is no evidence of acute intracranial hemorrhage or edematous territorial infarction. A few foci of hypoattenuation in the periventricular and deep white matter are consistent with mild microangiopathy. Simmons-white matter differentiation is preserved. Mineralization of the basal ganglia. The ventricles are normal in size and configuration. No evidence for obstructive hydrocephalus. No abnormal mass effect or midline shift. No extra-axial fluid collections. No acute soft tissue or osseous abnormalities. The mastoid air cells and paranasal sinuses are clear. CT/CT head/brain wo IV con IMPRESSION: No evidence of acute intracranial hemorrhage or edematous territorial infarction.
--- NOTE | ~2022-04-05 | CT_ITS ---
EXAMINATION: CT HEAD WITHOUT CONTRAST CLINICAL INFORMATION: Slurred speech since 1810 hours today COMPARISON: Head CT 04/05/2022 TECHNIQUE: Imaging was performed from the skull base to vertex without intravenous administration of contrast. This CT examination was performed using dose optimization techniques as appropriate, variously including the following: *Automated exposure control *Adjustment of mA and/or kV according to patient size (this includes techniques or standardized protocols for targeted exams where dose is matched to indication/reason for exam; i.e. extremities or head) *Use of iterative reconstruction technique Total exam dose length product: 657 mGy-cm FINDINGS: No intra or extra-axial fluid collection, hemorrhage, or mass. No ventriculomegaly. No midline shift or herniation. Basal cisterns are patent. Simmons-white matter differentiation is maintained. No territorial encephalomalacia. Proportional prominence of the ventricles and sulcal spaces is consistent with mild volume loss. Patchy periventricular and deep white matter hypoattenuation is consistent with mild small vessel ischemic changes. Mild bilateral basal ganglia calcifications noted. No calvarial fracture or soft tissue abnormality. The mastoid air cells and visualized portions of the paranasal sinuses are well aerated. Status post lens extractions bilaterally. CT/CT head for stroke IMPRESSION: 1. No intracranial hemorrhage or acute edematous territorial infarct identified.
--- NOTE | ~2022-04-05 | US_ITS ---
EXAMINATION: US EXTRACRANIAL CAROTID DUPLEX, BILATERAL CLINICAL INFORMATION: Slurred speech and TIA COMPARISON: None TECHNIQUE: Real-time ultrasound and Doppler techniques (integrating B-mode 2-D vascular images, Doppler spectral analysis and color-flow Doppler imaging) were utilized to interrogate the extracranial carotid arteries, the vertebral arteries and proximal subclavian arteries bilaterally. The degree of stenosis is determined by criteria similar to NASCET. FINDINGS: Right Side: 1. There is atherosclerotic plaque seen in the bifurcation/proximal ICA region. 2. The common carotid artery PSV proximally is 98 cm/s and distally 90 cm/s. 3. The proximal internal carotid artery velocities are 90 cm/s systolic and 17 cm/s diastolic. 4. The proximal external carotid artery PSV is 160 cm/s. 5. The vertebral artery shows antegrade flow. 6. The subclavian artery waveforms are normal. Left Side: 1. There is atherosclerotic plaque seen in the bifurcation/proximal ICA region. 2. The common carotid artery PSV proximally is 112 cm/s and distally 111 cm/s. 3. The proximal internal carotid artery velocities are 1:30 cm/s systolic and 31 cm/s diastolic. 4. The proximal external carotid artery PSV is 81 cm/s. 5. The vertebral artery shows antegrade flow. 6. The subclavian artery waveforms are normal. US/US carotid duplex BI IMPRESSION: 1. RIGHT: Minimal, non-hemodynamically significant stenosis of the proximal right internal carotid artery corresponding to a 0-49% stenosis by velocity criteria. 2. LEFT: Moderate, hemodynamically significant stenosis of the proximal left internal carotid artery corresponding to a 50-79% stenosis by velocity criteria.
[2022-04-05 10:34] VITALS: BP 111/65; BP 142/94; PULSE 87; PULSE 92; RESP 16; TEMP 36.6; O2SAT 100; O2SAT 99; BMI 24.5
--- NOTE | 2022-04-05 10:39 | ECG_ITS ---
Test Reason : weakness Blood Pressure : / mmHG Vent. Rate : 083 BPM Atrial Rate : 083 BPM P-R Int : 132 ms QRS Dur : 082 ms QT Int : 396 ms P-R-T Axes : 011 011 055 degrees QTc Int : 465 ms Normal sinus rhythm Normal ECG When compared with ECG of 19-MAR-2022 11:45, Nonspecific T wave abnormality is no longer Present QT has lengthened Referred By: Joslyn Pate Electronically Signed By:SANG CISSE
--- NOTE | 2022-04-05 10:41 | ED.GENADULT ---
HPI - General Adult General Chief complaint: General Medical Stated complaint: Slurred speech Time Seen by Provider: 04/05/22 10:29 Source: patient and EMS Mode of arrival: EMS Limitations: no limitations History of Present Illness HPI narrative: 71F PMH of low PTH hypercalcemia (work up ongoing), depression, gerd, moderate persistent asthma/copd, DM (resolved with weight loss), opiate dependence (no longer on suboxone), HTN who presents with reports of generalized weakness x several days, body aches. Per EMS on arrival they felt the patient did have some slurred speech in a left-sided facial droop. This seems resolved on arrival. Patient reports she was released yesterday from [facility] after being there for short-term rehab. Per EMS the patient's apartment is quite unkept, single yogurt in the fridge, flies all around. Related Data Home Medications Medication Instructions Recorded Confirmed buspirone 15 mg tablet 15 mg PO BID 04/17/20 04/05/22 duloxetine 60 mg capsule,delayed 60 mg PO BID 04/17/20 04/05/22 release pramipexole 0.125 mg tablet 0.125 mg PO BID 04/26/20 04/05/22 acetaminophen 500 mg tablet 1,000 mg PO Q8H PRN Pain 12/21/21 04/05/22 albuterol sulfate 90 mcg/actuation 2 puff inhalation Q6H PRN 12/21/21 04/05/22 aerosol inhaler shortness of breath or wheezing fluticasone propionate 110 2 puff inhalation BID 12/21/21 04/05/22 mcg/actuation HFA aerosol inhaler (Flovent HFA) methyl salicylate 30 %-menthol 10 1 appl topical TID PRN Muscle Pain 12/21/21 04/05/22 % topical cream (Icy Hot) pantoprazole 40 mg tablet,delayed 40 mg PO DAILY 12/21/21 04/05/22 release thiamine HCl (vitamin B1) 100 mg 100 mg PO DAILY 12/21/21 04/05/22 tablet aripiprazole 2 mg tablet 4 mg PO DAILY 03/19/22 04/05/22 ferrous sulfate 325 mg (65 mg 1 tab PO DAILY 03/19/22 04/05/22 iron) tablet fexofenadine 60 mg tablet 60 mg PO DAILY 03/19/22 04/05/22 loperamide 2 mg tablet 2 mg PO Q6H PRN Loose Stool 03/19/22 04/05/22 promethazine 25 mg tablet 25 mg PO QID PRN Nausea And 03/19/22 04/05/22 Vomiting cholecalciferol (vitamin D3) 125 125 mcg PO DAILY 04/05/22 04/05/22 mcg (5,000 unit) tablet lorazepam 0.5 mg tablet (Ativan) 1 tab PO BID PRN anxiety 04/05/22 04/05/22 multivitamin 1 tab PO DAILY 04/05/22 04/05/22 Previous Rx's Medication Instructions Recorded docusate sodium 100 mg capsule 100 mg PO BID 30 days #60 caps 03/26/22 Allergies Allergy/AdvReac Type Severity Reaction Status Date / Time No Known Allergies Allergy Verified 01/28/22 02:17 [No Known Allergies*] Review of Systems Review of Systems: Yes all other systems are reviewed and are negative Constitutional: Constitutional: Reports no additional constitutional complaints, Reports body ache(s), Denies chills, Denies fever(s), Denies headache(s) and Reports weakness Eyes: Eyes: Reports no additional eye complaints and Denies change in vision ENT: Reports system reviewed and no additional complaints, except as documented, Denies dizziness, Denies headache(s), Denies nasal congestion, Denies nasal discharge and Denies neck pain Cardiovascular: Cardiovascular: Reports no additional cardiovascular complaints, Denies chest pain, Denies leg edema and Denies dyspnea Respiratory: Respiratory: Reports no additional respiratory complaints, Denies cough and Denies dyspnea Gastrointestinal: Gastrointestinal: Reports no additional gastrointestinal complaints, Denies abdominal pain, Denies diarrhea, Denies nausea and Denies vomiting Genitourinary: Genitourinary: Reports no additional female genitourinary complaints and Denies urinary incontinence Musculoskeletal: Musculoskeletal: Reports no additional musculoskeletal complaints, Denies back pain, Denies arthralgias, Denies joint swelling, Denies neck pain, Denies numbness and Denies tingling Integumentary/Breasts: Skin/Breast: Reports system reviewed and no additional complaints, except as docu and Denies rash Neurologic: Reports system reviewed and no additional complaints, except as documented, Denies dizziness, Denies headache(s), Denies numbness, Denies tingling and Reports weakness PMFSH Past Medical History Attestation statement: The following information was validated with the patient. Source: old records reviewed and nursing notes reviewed Medical History Anxiety Asthma-COPD overlap syndrome Depression Diabetes mellitus, type 2 GERD (gastroesophageal reflux disease) Hyponatremia New onset atrial fibrillation Surgical History History of section History of shoulder surgery Family History Family History Father Cancer Mother No problems noted. Social History Social History Household Members: Family Housing: [facility] Unable to assess alcohol history related to: Unable to respond Alcohol intake: former Patient Tobacco Use Status: Never used Tobacco Advance Directives: Yes Advance Directives on File: Yes Advance Directives Date on File: 12/24/21 service: No Current occupational status: unemployed and retired Physical Exam ED Vital Signs: Vital Signs - 24 hr 04/05/22 10:34 Temperature 97.9 F Pulse Rate 92 Respiratory Rate 16 Blood Pressure 111/65 Pulse Oximetry 100 Oxygen Delivery Method Room Air BMI result Body Mass Index 24.5 Const General: cooperative, healthy appearing, comfortable and no acute distress Orientation/consciousness: patient oriented x3 Limitations: no limitations HENMT Head: Yes normal to inspection Ears: hearing grossly normal bilaterally and TM's normal bilaterally General nose exam: Normal external nose present Face and sinus: Yes normal facial exam Mouth: Normal oral and palatal mucosa present Throat: Yes posterior oropharynx normal, Yes tonsils normal and Yes uvula midline Eyes General: appearance normal, both eyes and all related structures Pupils: Equal, round and reactive pupils present Neck Neck: Yes normal visual inspection, Yes full ROM, Yes no lymphadenopathy and Yes no meningeal signs Chest Chest palpation & inspection: normal inspection of the chest Resp Effort & Inspection: normal respiratory effort Auscultation: clear to auscultation bilaterally Cardio Rate: regular rate Rhythm: regular rhythm Peripheral pulses: Peripheral pulses 2+ throughout GI Inspection: Yes normal to inspection Palpation (GI): Soft to palpation and nontender Auscultation: normal bowel sounds General: Yes no CVA tenderness Back/Spine/Pelvis Back: no CVA tenderness Thoracic/Lumbar Spine: thoracic and lumbar spine normal to inspection Skin General skin exam: no rashes or lesions noted Neuro General: patient oriented x3, moves all extremities and no meningeal signs Cranial nerves: Yes CN's II-XII intact bilaterally, Yes Equal, round and reactive pupils present, Yes Bilaterally intact EOM present, Yes Nystagmus not present, Yes Normal facial strength present and Yes Midline tongue present Cognition (Neuro): normal cognition Gait exam (Neuro): Normal gait present Motor exam (neuro): 5/5 motor strength present throughout Sensory Exam: Normal double simultaneous stimulation for sensation Extrem General: Yes normal to inspection, Yes no pedal edema and Yes no calf tenderness NIH Stroke Scale Internal: Initial- Upon Arrival Level of Consciousness: Alert Level of Consciousness Questions: Answers both questions correctly Level of Consciousness Commands: Performs both tasks correctly Best Gaze: Normal Visual: No visual loss Facial Palsy: Normal Motor Arm (Right): No drift Motor Arm (Left): No drift Motor Leg (Right): No drift Motor Leg (Left): No drift Limb Ataxia: Absent Sensory: Normal Best Language: No aphasia Dysarthia: Normal Extinction and Inattention: No abnormality Score: 0 Course Course Course Narrative: Spoke to Dr. Perez who accepted admission of patient for TIA workup Medical Decision Making MDM Narrative Medical decision making narrative: 71 yo female here with several days of generalized weakness and body aches. Per EMS on arrival patient had some slurred speech and left sided facial droop. No AC therapy use. No reports of falls or injuries. Normal neuro exam on arrival, NIH 0. WIll obtain labs, EKG, UA, COVID screen, CT head Sounds like TIA. Anticipate admission Differential Diagnosis Differential Diagnosis: ICH vs CVA vs TIA, metabolic cause Medical Records Medical records reviewed: Yes I reviewed the patient's medical records. Lab Data Lab results reviewed: Yes I reviewed the patient's lab results. Result diagrams: 04/05/22 11:25 04/05/22 11:25 Labs: Lab Results 04/05/22 04/05/22 04/05/22 Range/Units 11:25 11:25 11:25 WBC 4.5 L (4.8-10.8) X10*3/uL RBC 2.66 L (4.20-5.50) X10*6/uL Hgb 8.6 L (12.0-16.0) g/dl Hct 25.1 L (37.0-47.0) % MCV 94.4 (80.0-98.0) fL MCH 32.3 (27.0-33.0) pg MCHC 34.3 (31.0-35.0) g/dl RDW 14.1 (11.0-16.0) % Plt Count 166 (160-400) X10*3/uL MPV 8.6 L (9.4-12.3) fL Immature Gran % (Auto) 0.4 (0.0-0.4) % Neut % (Auto) 57.4 (45-73) % Lymph % (Auto) 22.7 (20-40) % Daggett % (Auto) 5.1 (2-11) % Eos % (Auto) 14.2 H (0-4) % Baso % (Auto) 0.2 (0-2) % Lymph # (Auto) 1.0 L (1.2-4.9) X10*3/uL [place] # (Auto) 0.2 (0.1-1.2) X10*3/uL Eos # (Auto) 0.6 H (0.0-0.4) X10*3/uL Baso # (Auto) 0.0 (0.0-0.2) X10*3/uL Abs Immat Gran (auto) 0.02 (0.00-0.03) X10*3/uL Absolute Neuts (auto) 2.6 (2.0-8.3) x10*3/uL Absolute Nucleated RBC 0.000 (0.0-0.012) X10*3/uL Nucleated RBC % (auto) 0.0 (0.0-0.2) /100WBC Smear Tech's Comments VERIFIED Sodium 137 (135-145) mmol/L Potassium 3.5 (3.3-5.1) mmol/L Chloride 105 (96-108) mmol/L Carbon Dioxide 19 L (22-29) mmol/L Anion Gap 17 (12-20) BUN 14 (9-16) mg/dL Creatinine 0.83 (0.5-1.4) mg/dL Estim Creat Clear Calc 54.0 Estimated GFR > 60 Random Glucose 84 (60-115) mg/dL Calcium 9.5 D (8.4-10.2) mg/dL Magnesium 1.7 (1.6-2.6) mg/dL Total Bilirubin 0.5 (0.0-1.0) mg/dL Direct Bilirubin 0.2 (0.0-0.5) mg/dL AST 14 (5-31) U/L ALT 12 (0-31) U/L Alkaline Phosphatase 87 (39-117) U/L Troponin I High Sens 4.5 D (<3.5-17.0) ng/L Total Protein 7.0 (6.5-8.0) g/dL Albumin 3.7 D (3.5-5.0) g/dL COVID-19 (RANJIT) (Negative) COVID-19 Clin Com 04/05/22 04/05/22 Range/Units 11:25 11:25 WBC (4.8-10.8) X10*3/uL RBC (4.20-5.50) X10*6/uL Hgb (12.0-16.0) g/dl Hct (37.0-47.0) % MCV (80.0-98.0) fL MCH (27.0-33.0) pg MCHC (31.0-35.0) g/dl RDW (11.0-16.0) % Plt Count (160-400) X10*3/uL MPV (9.4-12.3) fL Immature Gran % (Auto) (0.0-0.4) % Neut % (Auto) (45-73) % Lymph % (Auto) (20-40) % [place] % (Auto) (2-11) % Eos % (Auto) (0-4) % Baso % (Auto) (0-2) % Lymph # (Auto) (1.2-4.9) X10*3/uL [place] # (Auto) (0.1-1.2) X10*3/uL Eos # (Auto) (0.0-0.4) X10*3/uL Baso # (Auto) (0.0-0.2) X10*3/uL Abs Immat Gran (auto) (0.00-0.03) X10*3/uL Absolute Neuts (auto) (2.0-8.3) x10*3/uL Absolute Nucleated RBC (0.0-0.012) X10*3/uL Nucleated RBC % (auto) (0.0-0.2) /100WBC Smear Tech's Comments Sodium (135-145) mmol/L Potassium (3.3-5.1) mmol/L Chloride (96-108) mmol/L Carbon Dioxide (22-29) mmol/L Anion Gap (12-20) BUN (9-16) mg/dL Creatinine (0.5-1.4) mg/dL Estim Creat Clear Calc Estimated GFR Random Glucose (60-115) mg/dL Calcium 9.6 (8.4-10.2) mg/dL Magnesium (1.6-2.6) mg/dL Total Bilirubin (0.0-1.0) mg/dL Direct Bilirubin (0.0-0.5) mg/dL AST (5-31) U/L ALT (0-31) U/L Alkaline Phosphatase (39-117) U/L Troponin I High Sens (<3.5-17.0) ng/L Total Protein (6.5-8.0) g/dL Albumin (3.5-5.0) g/dL COVID-19 (RANJIT) Negative (Negative) COVID-19 Clin Com See Note Imaging Data CT scan - head: Attestation: I personally reviewed and interpreted this imaging study as follows: Radiologist's impression: [place] [id number] CT Scan Report Signed Patient: Aracelis Plascencia I MR#: [id number] : 1950 Acct:[id number] Age/Sex: 71 / F ADM Date: 04/05/22 Loc: HO.ED Attending Dr: Ordering Physician: Joslyn Pate NP Date of Service: 04/05/22 Procedure(s): CT head/brain wo IV con Accession Number(s): [id number] cc: Joslyn Pate NP~ EXAMINATION: CT HEAD WITHOUT CONTRAST CLINICAL INFORMATION: Weakness.? COMPARISON: CT head dated from 03/19/2022. TECHNIQUE: Contiguous axial imaging was performed from the skull base to vertex without intravenous administration of contrast. This CT examination was performed using dose optimization techniques as appropriate, variously including the following: *Automated exposure control *Adjustment of mA and/or kV according to patient size (this includes techniques or standardized protocols for targeted exams where dose is matched to indication/reason for exam; i.e. extremities or head) *Use of iterative reconstruction technique DLP: 632 mGy-cm FINDINGS: There is no evidence of acute intracranial hemorrhage or edematous territorial infarction. A few foci of hypoattenuation in the periventricular and deep white matter are consistent with mild microangiopathy. Simmons-white matter differentiation is preserved. Mineralization of the basal ganglia. The ventricles are normal in size and configuration. No evidence for obstructive hydrocephalus. No abnormal mass effect or midline shift. No extra-axial fluid collections. No acute soft tissue or osseous abnormalities. The mastoid air cells and paranasal sinuses are clear. ? CT/CT head/brain wo IV con IMPRESSION: No evidence of acute intracranial hemorrhage or edematous territorial infarction. ? Chest x-ray: Attestation: I personally reviewed and interpreted this imaging study as follows: Radiologist's impression: [address] [address] XRay Report Signed Patient: Aracelis Plascencia I MR#: [id number] : 1950 Acct:[id number] Age/Sex: 71 / F ADM Date: 04/05/22 Loc: HO.ED Attending Dr: Ordering Physician: Joslyn Pate NP Date of Service: 04/05/22 Procedure(s): XR chest 1V Accession Number(s): [id number] cc: Joslyn Pate NP~ EXAMINATION: XR CHEST CLINICAL INFORMATION: Weakness. COMPARISON: Chest radiograph dated from 03/19/2022. TECHNIQUE: Frontal view of the chest was obtained. FINDINGS: Stable appearance of the cardiomediastinal silhouette. Unchanged mild interstitial thickening. No new focal airspace opacities, pleural effusions or pneumothorax. No acute osseous abnormalities. Redemonstration of nonspecific screw projecting over the left axillary region. 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 XR/XR chest 1V IMPRESSION: No acute cardiopulmonary findings. ? ECG Data Attestation: I personally reviewed and interpreted this ECG as follows: Interpretation: Normal sinus rhythm with a rate 83, normal [place], normal QRS, normal QT Discharge Plan Discharge Clinical Impression: TIA (transient ischemic attack) Patient Disposition: Admitted As Inpatient
[2022-04-05 11:35] LABS: Basophils Percent Auto 0.2 % (0-2); Eosinophils Absolute Auto 0.6 X10*3/uL (0.0-0.4); Eosinophils Percent Auto 14.2 % (0-4); Hematocrit 25.1 % (37.0-47.0); Hemoglobin 8.6 g/dl (12.0-16.0); Imm Gran Abs Auto 0.02 X10*3/uL (0.00-0.03); Imm Gran Pct Auto 0.4 % (0.0-0.4); Lymphocytes Percent Auto 22.7 % (20-40); MANUAL DIFF FLAG SCAN; Mean Corpuscular HGB Conc 34.3 g/dl (31.0-35.0); Mean Corpuscular Hemoglobin 32.3 pg (27.0-33.0); Mean Corpuscular Volume 94.4 fL (80.0-98.0); Mean Platelet Volume 8.6 fL (9.4-12.3); Monocytes Absolute Auto 0.2 X10*3/uL (0.1-1.2); Monocytes Percent Auto 5.1 % (2-11); Neutrophils Absolute Auto 2.6 x10*3/uL (2.0-8.3); Neutrophils Percent Auto 57.4 % (45-73); Platelet Count 166 X10*3/uL (160-400); Red Blood Count 2.66 X10*6/uL (4.20-5.50); Red Cell Distribution Width 14.1 % (11.0-16.0); SCAN SMEAR FLAG 1; White Blood Count 4.5 X10*3/uL (4.8-10.8)
[2022-04-05 11:48] LABS: Calcium 9.6 mg/dL (8.4-10.2)
[2022-04-05 11:52] LABS: COVID-19 Test Negative (Negative); IDNOW Serial# 16C4AD1C
[2022-04-05 11:53] LABS: Troponin-I High Sensitivity 4.5 ng/L (<3.5-17.0)
[2022-04-05 12:00] LABS: SLIDE REVIEW VERIFIED
--- NOTE | 2022-04-05 12:14 | PC.NURSE ---
pt requesting bedpan, offered commode and gave motivation to not be using bed recio. pt able to reposition on own, and over to commode w 1 assist. had small solid bm.
[2022-04-05 13:52] LABS: Alanine Aminotransferase 12 U/L (0-31); Albumin Level 3.7 g/dL (3.5-5.0); Alkaline Phosphatase 87 U/L (39-117); Anion Gap 17 (12-20); Aspartate Amino Transferase 14 U/L (5-31); Bilirubin Direct 0.2 mg/dL (0.0-0.5); Bilirubin Total 0.5 mg/dL (0.0-1.0); Blood Urea Nitrogen 14 mg/dL (9-16); Calcium 9.5 mg/dL (8.4-10.2); Carbon Dioxide 19 mmol/L (22-29); Chloride 105 mmol/L (96-108); Estimated Glomerular Filt Rate > 60; Glucose Random 84 mg/dL (60-115); Magnesium 1.7 mg/dL (1.6-2.6); Potassium 3.5 mmol/L (3.3-5.1); Sodium 137 mmol/L (135-145)
--- NOTE | 2022-04-05 14:22 | MHC.CM.ED ---
Received telephone call from Ludivina Carlson at [facility]. Patient was discharged from [facility] on 04/04. Ludivina aware patient will most likely be admitted. If patient is discharged over the weekend, case management will need to call [facility] at [phone] to make them aware, so services can be restarted. Continue to monitor for d/c needs.
--- NOTE | 2022-04-05 14:29 | P.HPHOSP_ITS ---
History of Present Illness Date of Service: 04/05/22 Chief Complaint: Slurred speech, left facial droop 71F PMH of low PTH hypercalcemia, depression, gerd, moderate persistent asthma/copd, DM, history of opiate dependence, HTN, presented by EMS for reported slurred speech and left facial droop. The patient reports that she was discharged from the nursing facility few days ago upon her request as she was not treated well. She went back home head was barely able to manage because she felt weak all over and was unable to take good care of herself. Today her visiting nurse called EMS to evaluate the patient for increased weakness. EMS brought the patient to the hospital reporting that on presentation they were concern over possible left facial droop and slurred speech. The patient reports that her done was rotated to the left cheek of her mouth for the last 3 days. She denies any slurred speech, focal weakness, lightheadedness, dizziness, double vision, nausea, vomiting or any urinary symptoms. CT scan of the head was negative for any acute findings. Will be admitted for monitoring overnight. Review of Systems Review of Systems: No fever, chills but reports generalized weakness No chest pain, palpitation No shortness of breath or coughing No abdominal pain, nausea or vomiting No urinary symptoms No any rash or wounds Having pain all over her body mainly in the joints [facility] Medical History Anxiety Asthma-COPD overlap syndrome Depression Diabetes mellitus, type 2 GERD (gastroesophageal reflux disease) Hyponatremia New onset atrial fibrillation Family History Father Cancer Mother No problems noted. Surgical History History of section History of shoulder surgery Social History Household Members: Family Housing: Detention Unable to assess alcohol history related to: Unable to respond Alcohol intake: former Patient Tobacco Use Status: Never used Tobacco Advance Directives: Yes Advance Directives on File: Yes Advance Directives Date on File: 12/24/21 service: No Current occupational status: unemployed and retired Meds Allergies Allergy/AdvReac Type Severity Reaction Status Date / Time No Known Allergies Allergy Verified 01/28/22 02:17 [No Known Allergies*] Active Medications: Current Medications Pharmacy Consult (Consult Rx Perform Med Rec) 1 each MISCELLANE ONCE PRN PRN Reason: Consult order Home Medications Medication Instructions Recorded Confirmed Last Taken Type buspirone 15 mg tablet 15 mg PO BID 04/17/20 03/19/22 Unknown History duloxetine 60 mg capsule,delayed 60 mg PO BID 04/17/20 03/19/22 Unknown History release pramipexole 0.125 mg tablet 0.125 mg PO BID 04/26/20 03/19/22 Unknown History acetaminophen 500 mg tablet 1,000 mg PO Q8H 12/21/21 01/29/22 Unknown History albuterol sulfate 90 mcg/actuation 2 puff inhalation Q6H PRN 12/21/21 03/19/22 Unknown History aerosol inhaler shortness of breath or wheezing fluticasone propionate 110 2 puff inhalation BID 12/21/21 03/19/22 Unknown History mcg/actuation HFA aerosol inhaler (Flovent HFA) methyl salicylate 30 %-menthol 10 1 appl topical TID PRN Muscle Pain 12/21/21 03/19/22 Unknown History % topical cream (Icy Hot) pantoprazole 40 mg tablet,delayed 40 mg PO DAILY 12/21/21 03/19/22 Unknown History release thiamine HCl (vitamin B1) 100 mg 100 mg PO DAILY 12/21/21 03/19/22 Unknown History tablet aripiprazole 2 mg tablet 4 mg PO DAILY 03/19/22 03/19/22 Unknown History ferrous sulfate 325 mg (65 mg 1 tab PO DAILY 03/19/22 03/19/22 Unknown History iron) tablet fexofenadine 60 mg tablet 60 mg PO DAILY 03/19/22 03/19/22 Unknown History loperamide 2 mg tablet 2 mg PO Q6H PRN Loose Stool 03/19/22 03/19/22 Unknown History promethazine 25 mg tablet 25 mg PO QID PRN Nausea And 03/19/22 03/19/22 Unknown History Vomiting cholecalciferol (vitamin D3) 125 125 mcg PO DAILY 04/05/22 04/05/22 Unknown History mcg (5,000 unit) tablet lorazepam 0.5 mg tablet (Ativan) 1 tab PO BID PRN anxiety 04/05/22 Unknown History multivitamin 1 tab PO DAILY 04/05/22 04/05/22 Unknown History Physical Exam Vital Signs and Narrative: Vital Signs: Last Vital Signs Temp 97.9 F 04/05/22 10:34 Pulse 92 04/05/22 10:34 Resp 16 04/05/22 10:34 BP 111/65 04/05/22 10:34 Pulse Ox 100 04/05/22 10:34 O2 Del Method 04/05/22 10:34 BMI result Body Mass Index 24.5 Const: Other: Constitutional : Alert, oriented, not in distress Neck : Normal inspection, Supple Cardiovascular : RRR, no JVP, no lower extremity edema Respiratory : fair bilateral air entry, no crackles, wheezes or rhonchi Gastrointestinal: soft, lax, Normal bowel sounds, Non tender Skin : Warm, Dry Musculoskeletal: Decreased range of motion in her shoulders from osteoarthritis Neurological : Alert & oriented x3, No focal deficit , CN 2-12 within normal Results Labs CBC and Chem 7: 04/05/22 11:25 04/05/22 11:25 Labs: Laboratory Results - last 24 hr 04/05/22 04/05/22 04/05/22 11:25 11:25 11:25 MCV 94.4 MCH 32.3 MCHC 34.3 RDW 14.1 Plt Count 166 MPV 8.6 L Immature Gran % (Auto) 0.4 Neut % (Auto) 57.4 Lymph % (Auto) 22.7 [place] % (Auto) 5.1 Eos % (Auto) 14.2 H Baso % (Auto) 0.2 Lymph # (Auto) 1.0 L [place] # (Auto) 0.2 Eos # (Auto) 0.6 H Baso # (Auto) 0.0 Abs Immat Gran (auto) 0.02 Absolute Neuts (auto) 2.6 Absolute Nucleated RBC 0.000 Nucleated RBC % (auto) 0.0 Smear Tech's Comments VERIFIED Anion Gap 17 Estim Creat Clear Calc 54.0 Estimated GFR > 60 Random Glucose 84 Calcium 9.5 D Magnesium 1.7 Total Bilirubin 0.5 Direct Bilirubin 0.2 AST 14 ALT 12 Alkaline Phosphatase 87 Total Protein 7.0 Albumin 3.7 D COVID-19 (RANJIT) Negative COVID-19 Clin Com See Note 04/05/22 11:25 MCV MCH MCHC RDW Plt Count MPV Immature Gran % (Auto) Neut % (Auto) Lymph % (Auto) [place] % (Auto) Eos % (Auto) Baso % (Auto) Lymph # (Auto) [place] # (Auto) Eos # (Auto) Baso # (Auto) Abs Immat Gran (auto) Absolute Neuts (auto) Absolute Nucleated RBC Nucleated RBC % (auto) Smear Tech's Comments Anion Gap Estim Creat Clear Calc Estimated GFR Random Glucose Calcium 9.6 Magnesium Total Bilirubin Direct Bilirubin AST ALT Alkaline Phosphatase Total Protein Albumin COVID-19 (RANJIT) COVID-19 Clin Com Imaging Radiologist's Impressions: Impressions Head CT 04/05/22 10:59 IMPRESSION: No evidence of acute intracranial hemorrhage or edematous territorial infarction. Chest X-Ray 04/05/22 11:20 IMPRESSION: No acute cardiopulmonary findings. Assessment and Plan (1) Slurred speech: Status: Acute Plan 71F PMH of low PTH hypercalcemia, depression, gerd, moderate persistent asthma/copd, DM, history of opiate dependence, HTN, presented by EMS for reported slurred speech and left facial droop. Reported slurred speech and facial droop Reported by EMS team Patient denies any of the symptoms but reported that her tongue has been getting stuck to her left cheek for the last [address] head negative for any acute findings Troponin negative EKG did not show any acute findings suggest ACS Will keep on telemetry for tonight to do PT and OT Monitor for any acute changes and repeat CT scan Physical deconditioning The patient reports feeling weak overall To do PT OT, will likely need placement ?mood disorder ?continue Cymbalta, BuSpar, aripiprazole GERD H2 venice, ppi moderate persistent asthma/copd albuterol as needed dvt prophylaxis -Lovenox DNR/DNI - per [facility] Quality Stroke Does the patient have a stroke diagnosis?: No VTE Prior VTE?: No VTE Risk Level:: Medical - moderate - high VTE Device Contraindication: Treatment Not Indicated VTE Drug Contraindication: N/A - Med Ordered
[2022-04-05 14:39] VITALS: BP 139/73; PULSE 98; RESP 22; TEMP 36.9; O2SAT 99
--- NOTE | 2022-04-05 14:40 | PHA.MEDREC ---
Pharmacy Consult ? Medication Reconciliation Pharmacy has completed the medication reconciliation. Patient has a PACE list. Thanks Wilfrido
[2022-04-05] MEDS: Enoxaparin Sodium 40 MG/0.4 ML SYRINGE SUBCUT (15:21)
[2022-04-05] MEDS: oxyCODONE HCl Immed Release 5 MG TABLET PO ×2 (15:21→21:28)
[2022-04-05 15:42] VITALS: BP 139/73; PULSE 98; O2SAT 99
--- NOTE | 2022-04-05 16:47 | PC.NURSE ---
Assumed care of patient at this time.
[2022-04-05 19:05] VITALS: BP 135/70; PULSE 109; RESP 20; O2SAT 97
--- NOTE | 2022-04-05 19:12 | PC.NURSE ---
Report given to CARMEN Clifford at this time
[2022-04-05] MEDS: DULoxetine HCl 60 MG CAPSULE.DR PO (21:28)
[2022-04-05] MEDS: Pramipexole Di-HCL 0.125 MG TABLET PO (21:28)
[2022-04-05] MEDS: 0.9 % Sodium Chloride Flush 3 ML SYRINGE IVFLUSH (23:52)
--- NOTE | 2022-04-05 23:53 | PC.NURSE ---
Assumed care of patient at 1900. Patient incontinent of urine, care provided. prn oxycodone administered for chronic back and neck pain. Encouraged and assisted patient to bedside commode.
[2022-04-06] VITALS (7 sets, daily range): BP systolic 107–146; BP diastolic 56–78; PULSE 89–111; RESP 15–19; TEMP 36.3–37.1; O2SAT 92–99; BMI 24.5
[2022-04-06] MEDS: oxyCODONE HCl Immed Release 5 MG TABLET PO ×4 (03:36→21:37)
[2022-04-06] MEDS: Omeprazole 40 MG CAPSULE.DR PO (06:33)
--- NOTE | 2022-04-06 07:00 | PC.NURSE ---
Assumed care of patient at this time.
[2022-04-06 07:25] LABS: Glucose, Whole Blood 90 mg/dL (60-115)
[2022-04-06] MEDS: LORazepam 0.5 MG TABLET PO (08:18)
[2022-04-06] MEDS: 0.9 % Sodium Chloride Flush 3 ML SYRINGE IVFLUSH ×3 (08:18→21:38)
[2022-04-06] MEDS: DULoxetine HCl 60 MG CAPSULE.DR PO ×2 (08:18→21:36)
[2022-04-06] MEDS: Thiamine HCL 100 MG TABLET PO (08:18)
[2022-04-06] MEDS: Multivitamin TABLET 1 TAB PO (08:18)
[2022-04-06] MEDS: Pramipexole Di-HCL 0.125 MG TABLET PO ×2 (08:18→21:37)
[2022-04-06] MEDS: Cholecalciferol (Vitamin D3) 25 MCG TABLET 125 MCG PO (08:20)
--- NOTE | 2022-04-06 10:12 | HO.PM.IMPN ---
Subjective Subjective Date of Service: 04/06/22 Interval History: Seen and evaluated this morning Feels better overall, pain better controlled Denies any episodes of weakness, numbness or slurred speech No events on the monitor No reported incidence overnight Review of Systems No fever, chills but reports generalized weakness No chest pain, palpitation No shortness of breath or coughing No abdominal pain, nausea or vomiting No urinary symptoms No any rash or wounds Having pain all over her body mainly in the joints Physical Exam Vital Signs: Vital Signs: Last Vital Signs Temp 97.6 F 04/06/22 07:50 Pulse 89 04/06/22 07:50 Resp 15 04/06/22 07:50 BP 129/70 04/06/22 07:50 Pulse Ox 92 04/06/22 07:50 O2 Del Method 04/06/22 07:50 BMI result Body Mass Index 24.5 Const: Other: Constitutional : Alert, oriented, not in distress Neck : Normal inspection, Supple Cardiovascular : RRR, no JVP, no lower extremity edema Respiratory : fair bilateral air entry, no crackles, wheezes or rhonchi Gastrointestinal: soft, lax, Normal bowel sounds, Non tender Skin : Warm, Dry Musculoskeletal: Decreased range of motion in her shoulders from osteoarthritis Neurological : Alert & oriented x3, No focal deficit , CN 2-12 within normal Objective Data Active Medications Acetaminophen (Acetaminophen 325 Mg Tablet) 650 mg PO Q6H PRN PRN Reason: Pain, Mild (Pain Scale 1-3) Duloxetine HCl (Duloxetine Hcl 60 Mg Capsule.) 60 mg PO BID [facility] Last Admin: 04/06/22 08:18 Dose: 60 mg Documented By: GAMALIEL Enoxaparin Sodium (Enoxaparin Sodium 40 Mg/0.4 Ml Syringe) 40 mg SUBCUT Q24H [facility] Last Admin: 04/05/22 15:21 Dose: 40 mg Documented By: JACOB Fluticasone Propionate (Fluticasone Propionate 100 Mcg Blst.W.Dev) 2 puff INHALE RBID [facility] Last Admin: 04/06/22 07:58 Dose: Not Given Documented By: LEONIDES Non-Admin Reason: Med Not Available Loperamide HCl (Loperamide Hcl 2 Mg Capsule) 2 mg PO Q6H PRN PRN Reason: Loose Stool Lorazepam (Lorazepam 0.5 Mg Tablet) 0.5 mg PO BID PRN PRN Reason: anxiety Last Admin: 04/06/22 08:18 Dose: 0.5 mg Documented By: GAMALIEL Multivitamins/Vitamin C (Multivitamin Tablet) 1 tab PO DAILY [facility] Last Admin: 04/06/22 08:18 Dose: 1 tab Documented By: GAMALIEL Omeprazole (Omeprazole 40 Mg Capsule.Dr) 40 mg PO DAILY@0630 [facility] Last Admin: 04/06/22 06:33 Dose: 40 mg Documented By: DESTIN Ondansetron HCl (Ondansetron Hcl 4 Mg/2 Ml Vial) 4 mg IVPUSH Q8H PRN PRN Reason: Nausea and Vomiting Oxycodone HCl (Oxycodone Hcl Immed Release 5 Mg Tablet) 5 mg PO Q6H PRN PRN Reason: Pain, Severe (Pain Scale 7-10) Last Admin: 04/06/22 09:46 Dose: 5 mg Documented By: GAMALIEL Pharmacy Consult (Consult Rx Perform Med Rec) 1 each MISCELLANE ONCE PRN PRN Reason: Consult order Pramipexole Dihydrochloride (Pramipexole Di-Hcl 0.125 Mg Tablet) 0.125 mg PO BID [facility] Last Admin: 04/06/22 08:18 Dose: 0.125 mg Documented By: GAMALIEL Sodium Chloride (0.9 % Sodium Chloride Flush 3 Ml Syringe) 3 ml IVFLUSH QSHIFT [facility] Last Admin: 04/06/22 08:18 Dose: 3 ml Documented By: GAMALIEL Thiamine HCl (Thiamine Hcl 100 Mg Tablet) 100 mg PO DAILY [facility] Last Admin: 04/06/22 08:18 Dose: 100 mg Documented By: GAMALIEL Vitamin D (Cholecalciferol (Vitamin D3) 25 Mcg Tablet) 125 mcg PO DAILY [facility] Last Admin: 04/06/22 08:20 Dose: 125 mcg Documented By: GAMALIEL Labs CBC & Chem 7: 04/05/22 11:25 04/05/22 11:25 Labs: Laboratory Results - last 24 hr 04/05/22 04/05/22 04/05/22 11:25 11:25 11:25 MCV 94.4 MCH 32.3 MCHC 34.3 RDW 14.1 Plt Count 166 MPV 8.6 L Immature Gran % (Auto) 0.4 Neut % (Auto) 57.4 Lymph % (Auto) 22.7 [place] % (Auto) 5.1 Eos % (Auto) 14.2 H Baso % (Auto) 0.2 Lymph # (Auto) 1.0 L [place] # (Auto) 0.2 Eos # (Auto) 0.6 H Baso # (Auto) 0.0 Abs Immat Gran (auto) 0.02 Absolute Neuts (auto) 2.6 Absolute Nucleated RBC 0.000 Nucleated RBC % (auto) 0.0 Smear Tech's Comments VERIFIED Anion Gap 17 Estim Creat Clear Calc 54.0 Estimated GFR > 60 POC Glucose Random Glucose 84 Calcium 9.5 D Magnesium 1.7 Total Bilirubin 0.5 Direct Bilirubin 0.2 AST 14 ALT 12 Alkaline Phosphatase 87 Total Protein 7.0 Albumin 3.7 D COVID-19 (RANJIT) Negative COVID-19 Clin Com See Note 04/05/22 04/06/22 11:25 07:22 MCV MCH MCHC RDW Plt Count MPV Immature Gran % (Auto) Neut % (Auto) Lymph % (Auto) [place] % (Auto) Eos % (Auto) Baso % (Auto) Lymph # (Auto) [place] # (Auto) Eos # (Auto) Baso # (Auto) Abs Immat Gran (auto) Absolute Neuts (auto) Absolute Nucleated RBC Nucleated RBC % (auto) Smear Tech's Comments Anion Gap Estim Creat Clear Calc Estimated GFR POC Glucose 90 Random Glucose Calcium 9.6 Magnesium Total Bilirubin Direct Bilirubin AST ALT Alkaline Phosphatase Total Protein Albumin COVID-19 (RANJIT) COVID-19 Clin Com Assessment and Plan (1) Slurred speech: Status: Acute Plan 71F PMH of low PTH hypercalcemia, depression, gerd, moderate persistent asthma/copd, DM, history of opiate dependence, HTN, presented by EMS for reported slurred speech and left facial droop. Reported slurred speech and facial droop Reported by EMS team , patient denies any similar symptoms Patient reported that her tongue has been getting stuck to her left cheek for the last 3 days but she had control over it and did not feel it was week CT head negative for any acute findings Troponin negative EKG did not show any acute findings suggest ACS No events on telemetry overnight pending PT and OT Monitor for any acute changes and repeat CT scan Physical deconditioning reports feeling weak overall To do PT OT, will likely need placement ?mood disorder ?continue Cymbalta, BuSpar, aripiprazole GERD H2 venice, ppi moderate persistent asthma/copd albuterol as needed dvt prophylaxis -Lovenox DNR/DNI - per [facility] Quality Stroke Does the patient have a stroke diagnosis?: No VTE Prior VTE?: No VTE Risk Level:: Medical - moderate - high VTE Device Contraindication: Treatment Not Indicated VTE Drug Contraindication: N/A - Med Ordered
[2022-04-06] MEDS: Enoxaparin Sodium 40 MG/0.4 ML SYRINGE SUBCUT (14:19)
--- NOTE | 2022-04-06 18:09 | PC.NURSE ---
Called report to [facility] Hodges assuming care of patient at this time.
[2022-04-06] MEDS: Fluticasone Propionate 100 MCG BLST.W.DEV 2 PUFF INHALE (22:19)
[2022-04-07] VITALS (10 sets, daily range): BP systolic 105–121; BP diastolic 53–66; PULSE 68–95; RESP 18–20; TEMP 36.6–37.3; O2SAT 96–100
[2022-04-07] MEDS: LORazepam 0.5 MG TABLET PO (02:00)
[2022-04-07] MEDS: Albuterol Sulfate (0.083%) 2.5 MG/3 ML VIAL.NEB INHALE (02:53)
[2022-04-07] MEDS: oxyCODONE HCl Immed Release 5 MG TABLET PO ×3 (05:10→18:08)
[2022-04-07] MEDS: Omeprazole 40 MG CAPSULE.DR PO (05:10)
[2022-04-07] MEDS: Fluticasone Propionate 100 MCG BLST.W.DEV 2 PUFF INHALE ×2 (07:52→19:25)
[2022-04-07] MEDS: Cholecalciferol (Vitamin D3) 25 MCG TABLET 125 MCG PO (09:01)
[2022-04-07] MEDS: Pramipexole Di-HCL 0.125 MG TABLET PO ×2 (09:01→20:51)
[2022-04-07] MEDS: DULoxetine HCl 60 MG CAPSULE.DR PO ×2 (09:01→20:52)
[2022-04-07] MEDS: Multivitamin TABLET 1 TAB PO (09:01)
[2022-04-07] MEDS: Thiamine HCL 100 MG TABLET PO (09:02)
[2022-04-07] MEDS: 0.9 % Sodium Chloride Flush 3 ML SYRINGE IVFLUSH ×2 (09:06→15:14)
--- NOTE | 2022-04-07 10:13 | P.PNIM_ITS ---
Subjective Subjective Date of Service: 04/07/22 Interval History: Seen and evaluated this morning Feels better overall, pain better controlled Denies any episodes of weakness, numbness or slurred speech No events on the monitor No reported incidence overnight Review of Systems No fever, chills but reports generalized weakness No chest pain, palpitation No shortness of breath or coughing No abdominal pain, nausea or vomiting No urinary symptoms No any rash or wounds Having pain all over her body mainly in the joints Physical Exam Vital Signs: Vital Signs: Last Vital Signs Temp 97.9 F 04/07/22 07:57 Pulse 91 04/07/22 07:57 Resp 20 04/07/22 07:57 BP 116/60 04/07/22 07:57 Pulse Ox 98 04/07/22 07:57 O2 Del Method 04/07/22 07:57 BMI result Body Mass Index 24.5 Const: Other: Constitutional : Alert, oriented, not in distress Neck : Normal inspection, Supple Cardiovascular : RRR, no JVP, no lower extremity edema Respiratory : fair bilateral air entry, no crackles, wheezes or rhonchi Gastrointestinal: soft, lax, Normal bowel sounds, Non tender Skin : Warm, Dry Musculoskeletal: Decreased range of motion in her shoulders from osteoarthritis Neurological : Alert & oriented x3, No focal deficit , CN 2-12 within normal Objective Data Active Medications Acetaminophen (Acetaminophen 325 Mg Tablet) 650 mg PO Q6H PRN PRN Reason: Pain, Mild (Pain Scale 1-3) Albuterol Sulfate (Albuterol Sulfate (0.083%) 2.5 Mg/3 Ml Vial.Neb) 2.5 mg INHALE Q4H PRN PRN Reason: Shortness of Breath/Wheezing Last Admin: 04/07/22 02:53 Dose: 2.5 mg Documented By: BLOSSOM Duloxetine HCl (Duloxetine Hcl 60 Mg Capsule.Dr) 60 mg PO BID [facility] Last Admin: 04/07/22 09:01 Dose: 60 mg Documented By: FERN Enoxaparin Sodium (Enoxaparin Sodium 40 Mg/0.4 Ml Syringe) 40 mg SUBCUT Q24H [facility] Last Admin: 04/06/22 14:19 Dose: 40 mg Documented By: GAMALIEL Fluticasone Propionate (Fluticasone Propionate 100 Mcg Blst.W.Dev) 2 puff INHALE RBID [facility] Last Admin: 04/07/22 07:52 Dose: 2 puff Documented By: LEONIDES Loperamide HCl (Loperamide Hcl 2 Mg Capsule) 2 mg PO Q6H PRN PRN Reason: Loose Stool Lorazepam (Lorazepam 0.5 Mg Tablet) 0.5 mg PO BID PRN PRN Reason: anxiety Last Admin: 04/07/22 02:00 Dose: 0.5 mg Documented By: VIKI Multivitamins/Vitamin C (Multivitamin Tablet) 1 tab PO DAILY [facility] Last Admin: 04/07/22 09:01 Dose: 1 tab Documented By: FERN Omeprazole (Omeprazole 40 Mg Capsule.Dr) 40 mg PO DAILY@0630 [facility] Last Admin: 04/07/22 05:10 Dose: 40 mg Documented By: VIKI Ondansetron HCl (Ondansetron Hcl 4 Mg/2 Ml Vial) 4 mg IVPUSH Q8H PRN PRN Reason: Nausea and Vomiting Oxycodone HCl (Oxycodone Hcl Immed Release 5 Mg Tablet) 5 mg PO Q6H PRN PRN Reason: Pain, Severe (Pain Scale 7-10) Last Admin: 04/07/22 05:10 Dose: 5 mg Documented By: VIKI Pharmacy Consult (Consult Rx Perform Med Rec) 1 each MISCELLANE ONCE PRN PRN Reason: Consult order Pramipexole Dihydrochloride (Pramipexole Di-Hcl 0.125 Mg Tablet) 0.125 mg PO BID [facility] Last Admin: 04/07/22 09:01 Dose: 0.125 mg Documented By: FERN Sodium Chloride (0.9 % Sodium Chloride Flush 3 Ml Syringe) 3 ml IVFLUSH QSHIFT [facility] Last Admin: 04/07/22 09:06 Dose: 3 ml Documented By: FERN Thiamine HCl (Thiamine Hcl 100 Mg Tablet) 100 mg PO DAILY [facility] Last Admin: 04/07/22 09:02 Dose: 100 mg Documented By: FERN Vitamin D (Cholecalciferol (Vitamin D3) 25 Mcg Tablet) 125 mcg PO DAILY [facility] Last Admin: 04/07/22 09:01 Dose: 125 mcg Documented By: FERN Labs CBC & Chem 7: 04/05/22 11:25 04/05/22 11:25 Assessment and Plan (1) Slurred speech: Status: Acute (2) Physical deconditioning: Status: Acute Plan 71F PMH of low PTH hypercalcemia, depression, gerd, moderate persistent asthma/copd, DM, history of opiate dependence, HTN, presented by EMS for reported slurred speech and left facial droop. Reported slurred speech and facial droop Reported by EMS team , patient denies any similar symptoms Patient reported that her tongue has been getting stuck to her left cheek for the last 3 days but she had control over it and did not feel it was week CT head negative for any acute findings Troponin negative EKG did not show any acute findings suggest ACS No events on telemetry overnight PT and OT Monitor for any acute changes and repeat CT scan Physical deconditioning reports feeling weak overall To do PT OT, will likely need placement ?mood disorder ?continue Cymbalta, BuSpar, aripiprazole GERD H2 ven[place], ppi moderate persistent asthma/copd albuterol as needed dvt prophylaxis -Lovenox DNR/DNI - per [facility] Quality Stroke Does the patient have a stroke diagnosis?: No VTE Prior VTE?: No VTE Risk Level:: Medical - moderate - high VTE Device Contraindication: Treatment Not Indicated VTE Drug Contraindication: N/A - Med Ordered
[2022-04-07] MEDS: Enoxaparin Sodium 40 MG/0.4 ML SYRINGE SUBCUT (15:13)
--- NOTE | 2022-04-07 16:09 | MHC.CM.PN ---
PT REPORTS SHE LIVES ALONE AND HAS SERVICES THROUGH THE [facility] SHE REPORTS THEY PROVIDE CM, RN, TEACHER ADVISOR, TRANSPORT AND MD SERVICES NEEDED SHE REPORTS SHE USES A WALKER AT HOME HER PCP IS DR NATARAJAN FROM [facility] SHE IS COVID VACCINATED X 4 IMM DELIVERED PT REPORTS SHE HAS BEEN TO REHAB BUT WANTS TO RETURN HOME WITH HER PRIOR SERVICES AT [place] SHE WILL NEED TRANSPORTATION ARRANGED
--- NOTE | 2022-04-07 18:30 | PM.EVENT ---
Event Note Date of Service: 04/07/22 Event Note: rapid response called for the patient due to slurred speech on examination patient awake alert reporting that she cannot find words offers no other complaints of weakness numbness or visual symptoms, neuro exam patient awake alert x3 good motor strength 5/5 both upper and lower extremities, normal sensation no pronated tripped speech clear initially had some difficulty finding words within seconds talking in full sentences with no speech impairment 0 word-finding difficulty. Transient neurological deficit patient noted to have recurrent episode of word-finding difficulty. No slurring of speech, normal neuro exam will give aspirin 81 mg check lipid profile give 1 dose of statin repeat CT head.
[2022-04-07] MEDS: Atorvastatin Calcium 40 MG TABLET PO (19:19)
[2022-04-07] MEDS: Aspirin Enteric Coated 81 MG TABLET.DR PO (19:20)
--- NOTE | 2022-04-07 22:52 | PC.NURSE ---
Addendum entered by Elizabeth Moraes RN 04/07/22 23:01: pt medicated with ASA 81 mg , and statin. no further aphasia noted . Original Note: at 187:15 SUSTAINABILITY CONSULTANT was called for this patient, his primary RN at that time was Ashley. Patient had slurred speech and was not able to fine the words to express herself. per primary RN that was a change from the patient's baseline.Pt was sent for the CTscan of the brain. CTscan negative for hemorrage, pt medicated with ASDA
[2022-04-08] MEDS: 0.9 % Sodium Chloride Flush 3 ML SYRINGE IVFLUSH ×4 (00:08→23:23)
[2022-04-08] MEDS: oxyCODONE HCl Immed Release 5 MG TABLET PO ×4 (00:14→18:16)
[2022-04-08 03:07] VITALS: BP 118/52; PULSE 91; RESP 18; TEMP 36.4; O2SAT 96
[2022-04-08] MEDS: Omeprazole 40 MG CAPSULE.DR PO (05:46)
[2022-04-08 06:20] LABS: Cholesterol 199 mg/dL; HDL Cholesterol 30 mg/dL; LDL Cholesterol Calculated 137 mg/dl; Triglycerides 161 mg/dL
[2022-04-08 07:34] VITALS: BP 116/53; PULSE 91; RESP 18; TEMP 37.2; O2SAT 96
[2022-04-08] MEDS: Fluticasone Propionate 100 MCG BLST.W.DEV 2 PUFF INHALE ×2 (08:19→18:51)
[2022-04-08 08:20] VITALS: PULSE 90; RESP 16; O2SAT 96
[2022-04-08] MEDS: Multivitamin TABLET 1 TAB PO (08:31)
[2022-04-08] MEDS: DULoxetine HCl 60 MG CAPSULE.DR PO ×2 (08:31→20:28)
[2022-04-08] MEDS: Cholecalciferol (Vitamin D3) 25 MCG TABLET 125 MCG PO (08:31)
[2022-04-08] MEDS: Pramipexole Di-HCL 0.125 MG TABLET PO ×2 (08:31→20:28)
[2022-04-08] MEDS: Thiamine HCL 100 MG TABLET PO (08:31)
[2022-04-08] MEDS: Aspirin Enteric Coated 81 MG TABLET.DR PO (08:32)
[2022-04-08 13:33] LABS: COVID-19 Test Negative (Negative); IDNOW Serial# 16C4AD1C
--- NOTE | 2022-04-08 14:09 | HO.PM.IMPN ---
Subjective Subjective Date of Service: 04/08/22 Interval History: Seen and evaluated this morning Had an episode of slurred speech that completely resolved yesterday Feels better overall, pain better controlled No events on the monitor No other reported incidence overnight Review of Systems No fever, chills but reports generalized weakness No chest pain, palpitation No shortness of breath or coughing No abdominal pain, nausea or vomiting No urinary symptoms No any rash or wounds Having pain all over her body mainly in the joints Physical Exam Vital Signs: Vital Signs: Last Vital Signs Temp 99 F 04/08/22 07:34 Pulse 90 04/08/22 08:20 Resp 16 04/08/22 08:20 BP 116/53 L 04/08/22 07:34 Pulse Ox 96 04/08/22 07:34 O2 Del Method 04/08/22 07:34 BMI result Body Mass Index 24.5 Const: Other: Constitutional : Alert, oriented, not in distress Neck : Normal inspection, Supple Cardiovascular : RRR, no JVP, no lower extremity edema Respiratory : fair bilateral air entry, no crackles, wheezes or rhonchi Gastrointestinal: soft, lax, Normal bowel sounds, Non tender Skin : Warm, Dry Musculoskeletal: Decreased range of motion in her shoulders from osteoarthritis Neurological : Alert & oriented x3, No focal deficit , CN 2-12 within normal Objective Data Active Medications Acetaminophen (Acetaminophen 325 Mg Tablet) 650 mg PO Q6H PRN PRN Reason: Pain, Mild (Pain Scale 1-3) Albuterol Sulfate (Albuterol Sulfate (0.083%) 2.5 Mg/3 Ml Vial.Ericka) 2.5 mg INHALE Q4H PRN PRN Reason: Shortness of Breath/Wheezing Last Admin: 04/07/22 02:53 Dose: 2.5 mg Documented By: BLOSSOM Aspirin (Aspirin Enteric Coated 81 Mg Tablet.) 81 mg PO DAILY [facility] Last Admin: 04/08/22 08:32 Dose: 81 mg Documented By: REE Atorvastatin Calcium (Atorvastatin Calcium 40 Mg Tablet) 40 mg PO BEDTIME [facility] Duloxetine HCl (Duloxetine Hcl 60 Mg Capsule.) 60 mg PO BID [facility] Last Admin: 04/08/22 08:31 Dose: 60 mg Documented By: REE Enoxaparin Sodium (Enoxaparin Sodium 40 Mg/0.4 Ml Syringe) 40 mg SUBCUT Q24H [facility] Last Admin: 04/07/22 15:13 Dose: 40 mg Documented By: FERN Fluticasone Propionate (Fluticasone Propionate 100 Mcg Blst.W.Dev) 2 puff INHALE RBID [facility] Last Admin: 04/08/22 08:19 Dose: 2 puff Documented By: KIM Loperamide HCl (Loperamide Hcl 2 Mg Capsule) 2 mg PO Q6H PRN PRN Reason: Loose Stool Lorazepam (Lorazepam 0.5 Mg Tablet) 0.5 mg PO BID PRN PRN Reason: anxiety Last Admin: 04/07/22 02:00 Dose: 0.5 mg Documented By: VIKI Multivitamins/Vitamin C (Multivitamin Tablet) 1 tab PO DAILY [facility] Last Admin: 04/08/22 08:31 Dose: 1 tab Documented By: REE Omeprazole (Omeprazole 40 Mg Capsule.Dr) 40 mg PO DAILY@0630 [facility] Last Admin: 04/08/22 05:46 Dose: 40 mg Documented By: NAHOMI Ondansetron HCl (Ondansetron Hcl 4 Mg/2 Ml Vial) 4 mg IVPUSH Q8H PRN PRN Reason: Nausea and Vomiting Oxycodone HCl (Oxycodone Hcl Immed Release 5 Mg Tablet) 5 mg PO Q6H PRN PRN Reason: Pain, Severe (Pain Scale 7-10) Last Admin: 04/08/22 12:19 Dose: 5 mg Documented By: REE Pharmacy Consult (Consult Rx Perform Med Rec) 1 each MISCELLANE ONCE PRN PRN Reason: Consult order Pramipexole Dihydrochloride (Pramipexole Di-Hcl 0.125 Mg Tablet) 0.125 mg PO BID [facility] Last Admin: 04/08/22 08:31 Dose: 0.125 mg Documented By: REE Sodium Chloride (0.9 % Sodium Chloride Flush 3 Ml Syringe) 3 ml IVFLUSH QSHIFT [facility] Last Admin: 04/08/22 08:32 Dose: 3 ml Documented By: REE Thiamine HCl (Thiamine Hcl 100 Mg Tablet) 100 mg PO DAILY [facility] Last Admin: 04/08/22 08:31 Dose: 100 mg Documented By: REE Vitamin D (Cholecalciferol (Vitamin D3) 25 Mcg Tablet) 125 mcg PO DAILY [facility] Last Admin: 04/08/22 08:31 Dose: 125 mcg Documented By: REE Labs CBC & Chem 7: 04/05/22 11:25 04/05/22 11:25 Labs: Laboratory Results - last 24 hr 04/08/22 04/08/22 05:35 12:42 Triglycerides 161 Cholesterol 199 LDL Cholesterol, Calc 137 HDL Cholesterol 30 COVID-19 (RANJIT) Negative COVID-19 Clin Com See Note Assessment and Plan (1) Slurred speech: Status: Acute (2) Physical deconditioning: Status: Acute Plan 71F PMH of low PTH hypercalcemia, depression, gerd, moderate persistent asthma/copd, DM, history of opiate dependence, HTN, presented by EMS for reported slurred speech and left facial droop. Slurred speech Episode noted while in the hospital Repeated CT head negative for any acute findings Troponin negative EKG did not show any acute findings suggest ACS No events on telemetry overnight PT and OT with recommendation for SNF To do carotid ultrasound Pending neurology evaluation Physical deconditioning reports feeling weak overall PT OT, will likely need placement ?mood disorder ?continue Cymbalta, BuSpar, aripiprazole GERD H2 venice, ppi moderate persistent asthma/copd albuterol as needed dvt prophylaxis -Lovenox DNR/DNI - per molst The patient will need overnight hospital stay to continue evaluation of slurred speech pending carotid ultrasound and neurology evaluation pending safe discharge plan and SNF placement. Quality Stroke Does the patient have a stroke diagnosis?: No VTE Prior VTE?: No VTE Risk Level:: Medical - moderate - high VTE Device Contraindication: Treatment Not Indicated VTE Drug Contraindication: N/A - Med Ordered
--- NOTE | 2022-04-08 14:42 | P.DS_ITS ---
DS: Providers Provider Date of Service: 04/08/22 Date of admission: 04/05/22 14:25 Primary care physician: Unknown Physician Consults: 04/08/22 08:01 Consult to Neurology Routine Consulting Provider: [facility] Reason for consultation: Slurred speech, recurrent episodes DS: Diagnosis Discharge Diagnosis (1) Slurred speech: Status: Acute (2) Physical deconditioning: Status: Acute (3) TIA (transient ischemic attack): Status: Acute DS: Summary Hospital Course Hospital Course: Admission note HPI 71F PMH of low PTH hypercalcemia, depression, gerd, moderate persistent asthma/copd, DM, history of opiate dependence, HTN, presented by EMS for reported slurred speech and left facial droop.? The patient reports that she was discharged from the nursing facility few days ago upon her request as she was not treated well.? She went back home head was barely able to manage because she felt weak all over and was unable to take good care of herself.? Today her visiting nurse called EMS to evaluate the patient for increased weakness.? EMS brought the patient to the hospital reporting that on presentation they were concern over possible left facial droop and slurred speech.? The patient reports that her done was rotated to the left cheek of her mouth for the last 3 days.? She denies any slurred speech, focal weakness, lightheadedness, dizziness, double vision, nausea, vomiting or any urinary symptoms.? CT scan of the head was negative for any acute findings. Will be admitted for monitoring overnight. Hospital course The patient was admitted to the hospital for evaluation of reported slurred speech and left facial droop seen by EMS. Patient did not have any symptoms at time of presentation. She was monitored in the hospital with no recurrence of the symptoms in the 1st 48 hours. She was waiting for placement when she developed slurred speech event that was evaluated by an eye doctor as repeated CT scan came back negative. EKG did not show any acute findings. Troponin was negative. Telemetry did not show any abnormal rhythm. Carotid ultrasound was done Evaluated by Neurology as she was started on baby aspirin and statin. Seen by Physical therapy who recommended short-term rehab. The patient will likely need less than 30 days of rehab stay. Start baby aspirin Start atorvastatin 40 mg daily continue physical therapy at the facility Time Spent with Patient Time attestation: Total time spent providing and/or coordinating discharge services: Discharge coordination time: Greater than 30 minutes Quality: Safe Use of Opioids Does Pt have an Active Cancer Diagnosis on the Problem List?: No Quality: Stroke Does the patient have a stroke diagnosis?: No Physical Exam Vital Signs: Vital Signs: Last Vital Signs Temp 99 F 04/08/22 07:34 Pulse 90 04/08/22 08:20 Resp 16 04/08/22 08:20 BP 116/53 L 04/08/22 07:34 Pulse Ox 96 04/08/22 07:34 O2 Del Method 04/08/22 07:34 BMI result Body Mass Index 24.5 Const: Other: Constitutional : Alert, oriented, not in distress Neck : Normal inspection, Supple Cardiovascular : RRR, no JVP, no lower extremity edema Respiratory : fair bilateral air entry, no crackles, wheezes or rhonchi Gastrointestinal: soft, lax, Normal bowel sounds, Non tender Skin : Warm, Dry Musculoskeletal: Decreased range of motion in her shoulders from osteoarthritis Neurological : Alert & oriented x3, No focal deficit , CN 2-12 within normal DS: Data Data Completed and Pending Labs on day of discharge: Laboratory Results - last 24 hr 04/08/22 04/08/22 05:35 12:42 Triglycerides 161 Cholesterol 199 LDL Cholesterol, Calc 137 HDL Cholesterol 30 COVID-19 (RANJIT) Negative COVID-19 Clin Com See Note Imaging CT scan - head: Radiologist's impression: ITS Impressions Head CT 04/05/22 10:59 IMPRESSION: No evidence of acute intracranial hemorrhage or edematous territorial infarction. Chest X-Ray 04/05/22 11:20 IMPRESSION: No acute cardiopulmonary findings. Head CT 04/07/22 18:43 IMPRESSION: 1. No intracranial hemorrhage or acute edematous territorial infarct identified. Discharge Plan Discharge Patient Disposition: er SNF Discharge Diagnosis: Slurred speech Referrals: [facility] [Other] - 1 Week Armando Everett MD [Physician] - 2 Weeks (Evaluation of TIA symptoms with moderate Lt sided internal carotid stenosis. ) Physician,Unknown J [Primary Care Provider] - 1 Week Discharge Medications: New atorvastatin 40 mg Tablet 40 mg PO BEDTIME 30 Days Qty: 30 0RF aspirin 81 mg Tablet,Delayed Release (Dr/Ec) 81 mg PO DAILY 30 Days Qty: 30 0RF Continued buspirone 15 mg tablet 15 mg PO BID duloxetine 60 mg capsule,delayed release(DR/EC) 60 mg PO BID thiamine HCl (vitamin B1) 100 mg Tablet 100 mg PO DAILY acetaminophen 500 mg Tablet 1,000 mg PO Q8H PRN (Reason: Pain) pantoprazole 40 mg Tablet,Delayed Release (Dr/Ec) 40 mg PO DAILY Icy Hot 30-10 % Cream 1 appl TOPICAL TID PRN (Reason: Muscle Pain) Rx Instructions: to back albuterol sulfate 90 mcg/actuation HFA aerosol inhaler 2 puff inhalation Q6H PRN (Reason: shortness of breath or wheezing) fluticasone propionate [Flovent HFA] 110 mcg/actuation HFA aerosol inhaler 2 puff inhalation BID fexofenadine 60 mg Tablet 60 mg PO DAILY loperamide 2 mg Tablet 2 mg PO Q6H PRN (Reason: Loose Stool) ferrous sulfate 325 mg (65 mg iron) tablet 1 tab PO DAILY promethazine 25 mg Tablet 25 mg PO QID PRN (Reason: Nausea And Vomiting) aripiprazole 2 mg Tablet 4 mg PO DAILY docusate sodium 100 mg Capsule 100 mg PO BID 30 Days Qty: 60 0RF lorazepam [Ativan] 0.5 mg tablet 1 tab PO BID PRN (Reason: anxiety) multivitamin Tablet 1 tab PO DAILY cholecalciferol (vitamin D3) 125 mcg (5,000 unit) Tablet 125 mcg PO DAILY pramipexole 0.125 mg tablet 0.125 mg PO BID Discharge Orders: Discharge Order (Routine); Ordered 04/08/22 Ordered By: Satnam Perez Diet: Advance to usual diet Activity on Discharge: As tolerated Stand Alone Forms: Patient Portal Discharge page Care Plan Goals: Read below Health Concerns: Read below Plan of Treatment: Read below Assessment: You were admitted to the hospital for evaluation of weakness and slurred speech. CT image was negative for any acute findings. You were monitored in the hospital with 1 episode of recurrence of slurred speech. Repeated CT scan was negative. Carotid ultrasound was done as neurology evaluated you. Start baby aspirin Start atorvastatin 40 mg daily continue physical therapy at the facility To follow outpatient with vascular surgery for further evaluation and enzo de souza, referral made to dr Everett
[2022-04-08] MEDS: Enoxaparin Sodium 40 MG/0.4 ML SYRINGE SUBCUT (15:03)
[2022-04-08 15:15] VITALS: BP 103/58; PULSE 89; RESP 18; TEMP 37.1; O2SAT 97
--- NOTE | 2022-04-08 15:32 | MHC.CM.PN ---
spoke with pt re dc to hily explined to pt that her pace insurance chosem the facility and that i would ask raoul to contact [facility] to tell them her concerns and to perhaps put her on a different t./w also left a message for misty goeva for raoul [phone] to contact me to gregorio pts concern
--- NOTE | 2022-04-08 16:12 | PM.NEUROCN ---
History of Present Illness Data of Consult Service Date: 04/08/22 Primary Care Provider: Unknown Physician HPI Reason for consult: Carotid stenosis 71 years old woman I was asked to see for carotid stenosis. Apparently she was admitted with complaint of slurred speech and facial droop. Exact history was not clear. At this time she was symptom free. There was no associated headache or convulsion. Review of Systems Review of Systems: No recent cold or flu-like PMFSH Past Medical History Medical History Anxiety Asthma-COPD overlap syndrome Depression Diabetes mellitus, type 2 GERD (gastroesophageal reflux disease) Hyponatremia New onset atrial fibrillation Family History Family History Father Cancer Mother No problems noted. Surgical History Surgical History History of section History of shoulder surgery Social History Social History Household Members: Family Housing: [facility] Unable to assess alcohol history related to: Unable to respond Alcohol intake: former Patient Tobacco Use Status: Never used Tobacco Advance Directives Date on File: 12/24/21 service: No Current occupational status: unemployed and retired Meds Allergies Allergy/AdvReac Type Severity Reaction Status Date / Time No Known Allergies Allergy Verified 01/28/22 02:17 [No Known Allergies*] Active Medications: Current Medications Acetaminophen (Acetaminophen 325 Mg Tablet) 650 mg PO Q6H PRN PRN Reason: Pain, Mild (Pain Scale 1-3) Albuterol Sulfate (Albuterol Sulfate (0.083%) 2.5 Mg/3 Ml Vial.Neb) 2.5 mg INHALE Q4H PRN PRN Reason: Shortness of Breath/Wheezing Last Admin: 04/07/22 02:53 Dose: 2.5 mg Aspirin (Aspirin Enteric Coated 81 Mg Tablet.) 81 mg PO DAILY [facility] Last Admin: 04/08/22 08:32 Dose: 81 mg Atorvastatin Calcium (Atorvastatin Calcium 40 Mg Tablet) 40 mg PO BEDTIME [facility] Duloxetine HCl (Duloxetine Hcl 60 Mg Capsule.) 60 mg PO BID [facility] Last Admin: 04/08/22 08:31 Dose: 60 mg Enoxaparin Sodium (Enoxaparin Sodium 40 Mg/0.4 Ml Syringe) 40 mg SUBCUT Q24H [facility] Last Admin: 04/08/22 15:03 Dose: 40 mg Fluticasone Propionate (Fluticasone Propionate 100 Mcg Blst.W.Dev) 2 puff INHALE RBID [facility] Last Admin: 04/08/22 08:19 Dose: 2 puff Loperamide HCl (Loperamide Hcl 2 Mg Capsule) 2 mg PO Q6H PRN PRN Reason: Loose Stool Lorazepam (Lorazepam 0.5 Mg Tablet) 0.5 mg PO BID PRN PRN Reason: anxiety Last Admin: 04/07/22 02:00 Dose: 0.5 mg Multivitamins/Vitamin C (Multivitamin Tablet) 1 tab PO DAILY [facility] Last Admin: 04/08/22 08:31 Dose: 1 tab Omeprazole (Omeprazole 40 Mg Capsule.Dr) 40 mg PO DAILY@0630 [facility] Last Admin: 04/08/22 05:46 Dose: 40 mg Ondansetron HCl (Ondansetron Hcl 4 Mg/2 Ml Vial) 4 mg IVPUSH Q8H PRN PRN Reason: Nausea and Vomiting Oxycodone HCl (Oxycodone Hcl Immed Release 5 Mg Tablet) 5 mg PO Q6H PRN PRN Reason: Pain, Severe (Pain Scale 7-10) Last Admin: 04/08/22 12:19 Dose: 5 mg Pharmacy Consult (Consult Rx Perform Med Rec) 1 each MISCELLANE ONCE PRN PRN Reason: Consult order Pramipexole Dihydrochloride (Pramipexole Di-Hcl 0.125 Mg Tablet) 0.125 mg PO BID [facility] Last Admin: 04/08/22 08:31 Dose: 0.125 mg Sodium Chloride (0.9 % Sodium Chloride Flush 3 Ml Syringe) 3 ml IVFLUSH QSHIFT [facility] Last Admin: 04/08/22 15:04 Dose: 3 ml Thiamine HCl (Thiamine Hcl 100 Mg Tablet) 100 mg PO DAILY [facility] Last Admin: 04/08/22 08:31 Dose: 100 mg Vitamin D (Cholecalciferol (Vitamin D3) 25 Mcg Tablet) 125 mcg PO DAILY [facility] Last Admin: 04/08/22 08:31 Dose: 125 mcg Home Medications Medication Instructions Recorded Confirmed Last Taken Type buspirone 15 mg tablet 15 mg PO BID 04/17/20 04/05/22 Unknown History duloxetine 60 mg capsule,delayed 60 mg PO BID 04/17/20 04/05/22 Unknown History release pramipexole 0.125 mg tablet 0.125 mg PO BID 04/26/20 04/05/22 Unknown History acetaminophen 500 mg tablet 1,000 mg PO Q8H PRN Pain 12/21/21 04/05/22 Unknown History albuterol sulfate 90 mcg/actuation 2 puff inhalation Q6H PRN 12/21/21 04/05/22 Unknown History aerosol inhaler shortness of breath or wheezing fluticasone propionate 110 2 puff inhalation BID 12/21/21 04/05/22 Unknown History mcg/actuation HFA aerosol inhaler (Flovent HFA) methyl salicylate 30 %-menthol 10 1 appl topical TID PRN Muscle Pain 12/21/21 04/05/22 Unknown History % topical cream (Icy Hot) pantoprazole 40 mg tablet,delayed 40 mg PO DAILY 12/21/21 04/05/22 Unknown History release thiamine HCl (vitamin B1) 100 mg 100 mg PO DAILY 12/21/21 04/05/22 Unknown History tablet aripiprazole 2 mg tablet 4 mg PO DAILY 03/19/22 04/05/22 Unknown History ferrous sulfate 325 mg (65 mg 1 tab PO DAILY 03/19/22 04/05/22 Unknown History iron) tablet fexofenadine 60 mg tablet 60 mg PO DAILY 03/19/22 04/05/22 Unknown History loperamide 2 mg tablet 2 mg PO Q6H PRN Loose Stool 03/19/22 04/05/22 Unknown History promethazine 25 mg tablet 25 mg PO QID PRN Nausea And 03/19/22 04/05/22 Unknown History Vomiting cholecalciferol (vitamin D3) 125 125 mcg PO DAILY 04/05/22 04/05/22 Unknown History mcg (5,000 unit) tablet lorazepam 0.5 mg tablet (Ativan) 1 tab PO BID PRN anxiety 04/05/22 04/05/22 Unknown History multivitamin 1 tab PO DAILY 04/05/22 04/05/22 Unknown History Physical Exam Vital Signs: Vital Signs: Last Vital Signs Temp 98.7 F 04/08/22 15:15 Pulse 89 04/08/22 15:15 Resp 18 04/08/22 15:15 BP 103/58 L 04/08/22 15:15 Pulse Ox 97 04/08/22 15:15 O2 Del Method 04/08/22 15:15 BMI result Body Mass Index 24.5 Neuro: Other: She was alert and awake with normal spontaneity of speech fluency comprehension and affect. Face was symmetrical. Visual rutherford are full. She was able to name and repeat without difficulty. Speech was normal. There was no pronator drift. Deep tendon reflexes are absent with flexor plantars per Results Labs CBC & Chem 7: 04/05/22 11:25 04/05/22 11:25 Labs: Her head CT revealed mild cerebral atrophy. Carotid ultrasound revealed moderate left internal carotid artery stenosis Assessment and Plan (1) TIA (transient ischemic attack): Status: Acute 71 years old woman with symptoms of slurred speech and facial droop though its exact nature is unclear and even the side of face asymmetry is unclear. At this time exam is nonfocal. Her head CT is okay and carotid revealed right leg after total with symptoms including slurred speech 1 could consider possibility that carotid could have been the cause. I would recommend continuing anti-platelet agent, maximizing statin therapy, and outpatient vascular surgery consultation. Procedures Date of Service Date of Service: 04/08/22
--- NOTE | 2022-04-08 17:09 | MHC.CM.PN ---
CM has tried to arrange transport for this patient from [facility] to [facility] without success. [facility] cannot provide transport. [facility], [facility], [facility], [facility] have all said there is no availability for transport tonight. [facility] told CM they cannot transport because pt has an outstanding bill with the company. Attempted to call [facility] to make arrangements for transport tomorrow, but they are closed. Will need to call during business hours, 8-4:30. Ana Weathers and [facility] [place] aware. EMILIO Truong notified via [employer]. [facility] notified via [facility]. CM will follow for d/c planning.
[2022-04-08 18:51] VITALS: PULSE 78; RESP 18; O2SAT 94
[2022-04-08 19:41] VITALS: BP 111/53; PULSE 92; RESP 20; TEMP 36.4; O2SAT 98
[2022-04-08] MEDS: Atorvastatin Calcium 40 MG TABLET PO (20:28)
[2022-04-09] VITALS: BP 107/54; PULSE 90; RESP 20; TEMP 37.5; O2SAT 99
[2022-04-09] MEDS: oxyCODONE HCl Immed Release 5 MG TABLET PO ×3 (00:32→12:36)
[2022-04-09 03:42] VITALS: BP 98/57; PULSE 90; RESP 20; TEMP 37.7; O2SAT 96
[2022-04-09] MEDS: Omeprazole 40 MG CAPSULE.DR PO (05:12)
[2022-04-09 08:00] VITALS: BP 100/59; PULSE 87; RESP 16; TEMP 35.8; O2SAT 98
[2022-04-09] MEDS: Fluticasone Propionate 100 MCG BLST.W.DEV 2 PUFF INHALE (08:03)
[2022-04-09 08:04] VITALS: PULSE 84; RESP 16; O2SAT 100
[2022-04-09] MEDS: Cholecalciferol (Vitamin D3) 25 MCG TABLET 125 MCG PO (08:43)
[2022-04-09] MEDS: 0.9 % Sodium Chloride Flush 3 ML SYRINGE IVFLUSH (08:43)
[2022-04-09] MEDS: Aspirin Enteric Coated 81 MG TABLET.DR PO (08:43)
[2022-04-09] MEDS: Multivitamin TABLET 1 TAB PO (08:43)
[2022-04-09] MEDS: Thiamine HCL 100 MG TABLET PO (08:43)
[2022-04-09] MEDS: Pramipexole Di-HCL 0.125 MG TABLET PO (08:43)
[2022-04-09] MEDS: DULoxetine HCl 60 MG CAPSULE.DR PO (08:43)
[2022-04-09 11:12] VITALS: BP 94/46; PULSE 84; RESP 15; TEMP 36.6; O2SAT 96
[2022-04-09 11:36] VITALS: BP 121/59; PULSE 85; RESP 20; TEMP 36.6; O2SAT 97
== END 2022-04-09 13:30 | disposition skilled nursing facility (03) | DRG 69 ==
LOC: HO.ED 14:25 → HO.EDOVER 14:39 → HO.IMC 04-06 15:45
PROVIDERS: Hospitalist; Nurse Practitioner Family; Admitting Provider Student in an Organized Health Care Education/Training Program; Emergency Provider Emergency Medicine; PCP Hospitalist; Visit Provider Student in an Organized Health Care Education/Training Program
DX: G45.9 Transient cerebral ischemic attack, unspecified (principal); F11.20 Opioid dependence, uncomplicated; Z66 Do not resuscitate; F41.9 Anxiety disorder, unspecified; F32.A Depression, unspecified; K21.9 Gastro-esophageal reflux disease without esophagitis; J45.40 Moderate persistent asthma, uncomplicated; R29.810 Facial weakness; J44.9 Chronic obstructive pulmonary disease, unspecified; R47.81 Slurred speech; Z20.822 Contact with and (suspected) exposure to COVID-19; Z79.51 Long term (current) use of inhaled steroids; Z79.82 Long term (current) use of aspirin; Z79.899 Other long term (current) drug therapy
CPT/HCPCS: 36415; 70450; 71045; 80048; 80061; 80076; 82310; 82947; 83735; 84484; 85025; 87635; 93005; 93880; 94640; 97110; 97162; 97166; 99285; J1650

== ENCOUNTER → 2022-04-23 14:10 | Outpatient (BNVA) | payer OTHER, MEDICAID, SELFPAY | PROVIDERS: PCP Internal Medicine Rheumatology; Visit Provider Hospitalist | DX: J44.9 Chronic obstructive pulmonary disease, unspecified (principal); J45.41 Moderate persistent asthma with (acute) exacerbation; K21.9 Gastro-esophageal reflux disease without esophagitis | CPT/HCPCS: 99212 ==

== ENCOUNTER 2022-06-29 15:13 | Inpatient (IN) | payer OTHER, MEDICAID, SELFPAY ==
[2022-06-29] VITALS (10 sets, daily range): BP systolic 100–127; BP diastolic 45–70; PULSE 92–101; RESP 16–18; TEMP 36.6–37.1; O2SAT 96–99; BMI 24.0
--- NOTE | ~2022-06-29 | XR_ITS ---
EXAMINATION: XR CHEST CLINICAL INFORMATION: Bilateral crackles. Cough. COMPARISON: 04/05/2022 TECHNIQUE: Frontal view of the chest was obtained. FINDINGS: A radiopaque screw is seen in the soft tissues adjacent to the proximal aspect of the left humerus. This is unchanged. The patient is rotated to the left. The lungs are well expanded. No consolidation, edema, or effusion. No pneumothorax. The cardiomediastinal silhouette remains unchanged given differences in technique. Aortic calcifications. Advanced degenerative changes of the left glenohumeral joint. XR/XR chest 1V IMPRESSION: 1. No acute pulmonary disease. 2. Unchanged appearance of a radiopaque screw in the soft tissues adjacent to the proximal left humerus.
--- NOTE | ~2022-06-29 | US_ITS ---
EXAMINATION: US VENOUS ULTRASOUND WITH DOPPLER LOWER EXTREMITY, BILATERAL CLINICAL INFORMATION: Swelling and erythema COMPARISON: None TECHNIQUE: Ultrasound of the deep veins is performed from the hip to the calf with compression sonography and color and pulse Doppler assessment. Spectral analysis with color-flow imaging is performed. FINDINGS: RIGHT: There is normal venous compression and respiratory variation and augmented flow. The visualized common femoral vein, superficial femoral vein, profunda femoral vein, popliteal vein, and the trifurcation region shows no evidence of deep venous thrombosis. There is no significant popliteal fossa cyst. LEFT: There is normal venous compression and respiratory variation and augmented flow. The visualized common femoral vein, superficial femoral vein, profunda femoral vein, popliteal vein, and the trifurcation region shows no evidence of deep venous thrombosis. There is a relatively simple appearing Marshall's cyst which measures approximately 2.7 x 3.8 x 1.4 cm. US/US venous duplex LE BI IMPRESSION: No DVT demonstrated in the bilateral lower extremities.
--- NOTE | ~2022-06-29 | CT_ITS ---
EXAMINATION: CT FOREARM, LEFT WITHOUT CONTRAST CLINICAL INFORMATION: Cellulitis. Fluid/swelling at left forearm, elbow. COMPARISON: None TECHNIQUE: Multidetector volumetric imaging of the left forearm performed without IV contrast. Coronal and sagittal reformatted images are obtained and reviewed. FINDINGS: There is no acute fracture. Appropriate alignment at the elbow and wrist. No osseous erosions. There is significant diffuse subcutaneous edema spanning from the level of the distal humerus through the mid forearm at the dorsal aspect. This is greatest at the level of the elbow. Lack of IV contrast limits evaluation for a formed fluid collection, but no gross evidence of collection. There is some degree of anasarca in the superficial soft tissues of the abdominal wall. CT/CT forearm LT wo IV con IMPRESSION: 1. Significant diffuse subcutaneous edema spanning from the distal humerus through the mid forearm. This is greatest at the level of the elbow. Lack of IV contrast limits evaluation for a formed fluid collection, but no gross evidence of collection. 2. No acute osseous abnormality.
--- NOTE | 2022-06-29 15:52 | ED.GENADULT ---
HPI - General Adult General Chief complaint: Skin/Abscess/Foreign Body Stated complaint: LEFT ARM PAIN FROM [facility] PER EMS Time Seen by Provider: 06/29/22 15:52 Source: patient and EMS Mode of arrival: EMS Limitations: no limitations History of Present Illness HPI narrative: Patient is a 71 year old assigned female at with a history of GERD and depression presenting to the emergency department today with cellulitis. Patient states that she has redness to her left arm, left upper leg, and her right upper leg that she believes to be cellulitis. Patient states that she has had this before and this is what it looks like. Patient denies any dizziness, lightheadedness, abdominal pain, nausea, vomiting, fever, chills, blurry vision, double vision, loss of vision, chest pain, difficulty breathing, shortness of breath, back pain, night sweats, pain with urination, increased urinary frequency, increased urinary urgency, blood in her urine or stool, syncope or a near syncopal episode, recent trauma or falls, bowel incontinence, bladder incontinence, bowel retention, bladder retention, or any other complaints at this time. Onset (ago): day(s) Location: left (arm and upper leg) and right (upper leg) Severity: mild Severity scale (1-10): 3 Relieving factors: none Exacerbating factors: none Associated symptoms: denies other symptoms Treatments prior to arrival: none Related Data Home Medications Medication Instructions Recorded Confirmed buspirone 15 mg tablet 15 mg PO BID 04/17/20 04/05/22 duloxetine 60 mg capsule,delayed 60 mg PO BID 04/17/20 04/05/22 release pramipexole 0.125 mg tablet 0.125 mg PO BID 04/26/20 04/05/22 acetaminophen 500 mg tablet 1,000 mg PO Q8H PRN Pain 12/21/21 04/05/22 albuterol sulfate 90 mcg/actuation 2 puff inhalation Q6H PRN 12/21/21 04/05/22 aerosol inhaler shortness of breath or wheezing methyl salicylate 30 %-menthol 10 1 appl topical TID PRN Muscle Pain 12/21/21 04/05/22 % topical cream (Icy Hot) pantoprazole 40 mg tablet,delayed 40 mg PO DAILY 12/21/21 04/05/22 release thiamine HCl (vitamin B1) 100 mg 100 mg PO DAILY 12/21/21 04/05/22 tablet aripiprazole 2 mg tablet 4 mg PO DAILY 03/19/22 04/05/22 ferrous sulfate 325 mg (65 mg 1 tab PO DAILY 03/19/22 04/05/22 iron) tablet fexofenadine 60 mg tablet 60 mg PO DAILY 03/19/22 04/05/22 loperamide 2 mg tablet 2 mg PO Q6H PRN Loose Stool 03/19/22 04/05/22 promethazine 25 mg tablet 25 mg PO QID PRN Nausea And 03/19/22 04/05/22 Vomiting cholecalciferol (vitamin D3) 125 125 mcg PO DAILY 04/05/22 04/05/22 mcg (5,000 unit) tablet lorazepam 0.5 mg tablet (Ativan) 1 tab PO BID PRN anxiety 04/05/22 04/05/22 multivitamin 1 tab PO DAILY 04/05/22 04/05/22 Previous Rx's Medication Instructions Recorded docusate sodium 100 mg capsule 100 mg PO BID 30 days #60 caps 03/26/22 aspirin 81 mg tablet,delayed 81 mg PO DAILY 30 days #30 tabs 04/08/22 release atorvastatin 40 mg tablet 40 mg PO BEDTIME 30 days #30 tabs 04/08/22 oxycodone 5 mg tablet 5 mg PO Q6H PRN Pain, Severe (Pain 04/09/22 Scale 7-10) #20 tabs fluticasone propionate 110 2 puff inhalation BID 30 days #12 04/23/22 mcg/actuation HFA aerosol inhaler grams (Flovent HFA) umeclidinium 62.5 mcg-vilanterol 1 inh inhalation DAILY #60 ea 04/23/22 25 mcg/actuation powdr for inhalation (Anoro Ellipta) Allergies Allergy/AdvReac Type Severity Reaction Status Date / Time No Known Allergies Allergy Verified 01/28/22 02:17 [No Known Allergies*] Review of Systems Constitutional: Constitutional: Reports no additional constitutional complaints, Denies chills, Denies fever(s) and Denies night sweats Eyes: Eyes: Reports no additional eye complaints, Denies blurry vision, Denies change in vision, Denies diplopia, Denies eye discharge, Denies loss of vision and Denies eye pain ENT: Denies dizziness Cardiovascular: Cardiovascular: Reports no additional cardiovascular complaints, Denies chest pain, Denies lightheadedness, Denies Loss of Consciousness and Denies dyspnea Respiratory: Respiratory: Reports no additional respiratory complaints and Denies dyspnea Gastrointestinal: Gastrointestinal: Reports no additional gastrointestinal complaints, Denies abdominal pain, Denies melena, Denies hematochezia, Denies change in bowel habits and Denies change in stool character Genitourinary: Genitourinary: Denies hematuria, Denies urinary frequency, Denies dysuria, Denies urinary incontinence, Denies urinary hesitancy and Denies urinary urgency Musculoskeletal: Musculoskeletal: Reports no additional musculoskeletal complaints, Denies numbness and Denies tingling Integumentary/Breasts: Comments: redness to the left arm, right upper leg, and left upper leg Neurologic: Denies dizziness, Denies loss of vision, Denies numbness and Denies tingling Psychiatric: Psychiatric: Reports no additional psychiatric complaints Endocrine: Endocrine: Reports no additional endocrine complaints Hematologic/Lymphatic: Hematologic/Lymphatic: Reports no additional hematologic/lymphatic complaints Allergic/Immunologic: Allergic/Immunologic: Reports no additional allergic/immunologic complaints [facility] Past Medical History Attestation statement: The following information was validated with the patient. Source: old records reviewed and nursing notes reviewed Medical History Anxiety Asthma-COPD overlap syndrome Depression Diabetes mellitus, type 2 GERD (gastroesophageal reflux disease) Hyponatremia New onset atrial fibrillation Physical deconditioning TIA (transient ischemic attack) Surgical History History of section History of shoulder surgery Family History Family History Father Cancer Mother No problems noted. Social History Social History Household Members: Family Housing: Shelter Unable to assess alcohol history related to: Unable to respond Alcohol intake: former Patient Tobacco Use Status: Never used Tobacco Smoked in Last 30 Days: No Use of substances other than those prescribed or required for medical reasons: No Advance Directives: Yes Advance Directives on File: Yes Advance Directives Date on File: 12/24/21 service: No Current occupational status: unemployed and retired Physical Exam ED Vital Signs: Vital Signs - 24 hr 06/29/22 15:24 06/29/22 16:08 06/29/22 16:16 Temperature 98.7 F Pulse Rate 98 94 92 Respiratory Rate 18 Blood Pressure 100/47 L 104/54 L 107/53 L Pulse Oximetry 99 98 99 Oxygen Delivery Method Room Air Room Air Room Air 06/29/22 16:47 06/29/22 17:02 06/29/22 17:31 Temperature Pulse Rate 92 101 H 98 Respiratory Rate Blood Pressure 111/55 L 103/58 L 127/70 Pulse Oximetry 98 99 98 Oxygen Delivery Method Room Air Room Air Room Air 06/29/22 18:00 06/29/22 20:00 06/29/22 22:00 Temperature 97.8 F 98.2 F 97.8 F Pulse Rate 95 95 99 Respiratory Rate 16 16 16 Blood Pressure 103/45 L 113/53 L 102/48 L Pulse Oximetry 96 98 98 Oxygen Delivery Method Room Air Room Air Room Air 06/30/22 00:00 Temperature 98.7 F Pulse Rate 108 H Respiratory Rate 16 Blood Pressure 111/63 Pulse Oximetry 98 Oxygen Delivery Method Room Air BMI result Body Mass Index 24.0 Const General: cooperative, no acute distress, alert and awake Nutritional Appearance: well nourished Orientation/consciousness: patient oriented x3 Limitations: no limitations HENMT Head: Yes normal to inspection and Yes atraumatic Ears: hearing grossly normal bilaterally and external ears normal General nose exam: Normal external nose present, no nasal discharge noted and no epistaxis Face and sinus: Yes normal facial exam, No abrasion and No laceration Mouth: Normal oral and palatal mucosa present, no drooling and no muffled voice Eyes General: appearance normal, both eyes and all related structures Periorbital: periorbital findings normal Eyelids: Yes eyelids normal Conjunctivae: conjunctivae normal Pupils: Equal, round and reactive pupils present EOM: EOMs intact bilaterally Neck Neck: Yes normal visual inspection, Yes full ROM and Yes no lymphadenopathy Chest Chest palpation & inspection: normal inspection of the chest Resp Effort & Inspection: normal respiratory effort and able to speak in complete sentences Auscultation: clear to auscultation bilaterally Cardio Rate: regular rate Rhythm: regular rhythm GI Inspection: Yes normal to inspection Palpation (GI): Soft to palpation, not firm, nontender, no guarding and not rigid Skin Other: erythema and warmth present to the left posterior arm, right upper leg, and left upper leg. No circumfrential erythema or warmth. Neuro General: patient oriented x3 and moves all extremities Cranial nerves: Yes Equal, round and reactive pupils present Cognition (Neuro): normal cognition Motor exam (neuro): 5/5 motor strength present throughout Sensory Exam: Normal double simultaneous stimulation for sensation Coordination: [id number] test normal Extrem General: Yes normal to inspection, Yes full ROM and Yes capillary refill normal Psych Appearance: grossly normal Mental Status: mental status grossly normal Affect: normal affect Attitude: cooperative Thought process: Normal thought process present Thought content: Normal thought content present Insight: Good insight present (Psych) Medications Administered Generic Name Dose Route Start Last Admin Trade Name Freq PRN Reason Stop Dose Admin Doxycycline Monohydrate 100 mg 06/29/22 21:00 06/29/22 20:26 Doxycycline Monohydrate 100 Mg Capsule PO 07/06/22 19:38 100 mg BID DEDE Administration Discontinued Medications Generic Name Dose Route Start Last Admin Trade Name Freq PRN Reason Stop Dose Admin Fentanyl 25 mcg 06/29/22 19:59 06/29/22 20:25 Fentanyl Citrate/Pf 100 Mcg/2 Ml Vial IVPUSH 06/29/22 20:00 25 mcg ONCE ONE Administration Protocol Sodium Chloride 1,905.09 mls @ 1,905.09 mls/hr 06/29/22 16:06 06/29/22 17:40 Ns 30 ml/kg infuse over 1 hr (1905.09 ml) 06/29/22 17:05 Infused IV Infusion .Q1H STA Magnesium Sulfate/Dextrose 1 gm in 100 mls @ 100 mls/hr 06/29/22 17:08 06/29/22 17:33 Magnesium Sulfate/D5w IV 06/29/22 18:07 100 mls/hr ONCE ONE Administration Sodium Chloride 1,000 mls @ 999 mls/hr 06/29/22 19:45 06/29/22 20:25 Ns IV 06/29/22 20:45 999 mls/hr .Q1H1M DEDE Administration Medical Decision Making Medical Decision Making MDM Narrative: Patient is a 71 year old assigned female at with a history of GERD and depression presenting to the emergency department today with cellulitis. Patient's physical exam showed erythema to the left posterior upper arm, right anterior upper leg, and left anterior upper leg. No circumfrential erythema or warmth. No wounds / open areas. Patient's blood work showed an elevated lactic acid of 3.0 with the repeat after IV fluids coming down to 2.6. Patient's CRP elevated at 2.78. Patient's sodium decreased at 130. Patient's HGB 7.6 which is consistent with her baseline. Patient's ESR is 28. Patient's urine showed no acute process. I explained my physical exam findings as well as all test results to the patient and the patient's daughter. I answered all questions asked by the patient and the patient's daughter. Patient's clinical presentation is most consistent with cellulitis. Patient's clinical presentation is not consistent with sepsis. Patient stated that she does not want to go back to [facility] and she would rather be here and get placed somewhere else. Patient placed in physician observation. Med rec completed. Diet order placed. Patient to be evaluated by physical therapy and placed by case management. Patient started on ABX for cellulitis. Will continue to monitor lactic acid. Differential Diagnosis Differential Diagnoses: The differential diagnosis associated with the presentation includes cellulitis Lab Data MDM Lab Attestation statement: I reviewed the patient's lab results. Result Diagrams: 06/29/22 16:12 06/29/22 16:12 Labs: Lab Results 06/29/22 06/29/22 06/29/22 Range/Units 16:12 16:12 16:12 WBC 3.9 L (4.8-10.8) X10*3/uL RBC 2.22 L (4.20-5.50) X10*6/uL Hgb 7.6 L (12.0-16.0) g/dl Hct 22.0 L (37.0-47.0) % MCV 99.1 H (80.0-98.0) fL MCH 34.2 H (27.0-33.0) pg MCHC 34.5 (31.0-35.0) g/dl RDW 16.8 H (11.0-16.0) % Plt Count 158 L (160-400) X10*3/uL MPV 9.7 (9.4-12.3) fL Immature Gran % (Auto) 1.0 H (0.0-0.4) % Neut % (Auto) 72.0 (45-73) % Lymph % (Auto) 16.7 L (20-40) % [place] % (Auto) 5.4 (2-11) % Eos % (Auto) 4.6 H (0-4) % Baso % (Auto) 0.3 (0-2) % Lymph # (Auto) 0.7 L (1.2-4.9) X10*3/uL [place] # (Auto) 0.2 (0.1-1.2) X10*3/uL Eos # (Auto) 0.2 (0.0-0.4) X10*3/uL Baso # (Auto) 0.0 (0.0-0.2) X10*3/uL Abs Immat Gran (auto) 0.04 H (0.00-0.03) X10*3/uL Absolute Neuts (auto) 2.8 (2.0-8.3) x10*3/uL Absolute Nucleated RBC 0.000 (0.0-0.012) X10*3/uL Nucleated RBC % (auto) 0.0 (0.0-0.2) /100WBC ESR 28 H (0-20) MM/HR Sodium 130 L (135-145) mmol/L Potassium 3.8 (3.3-5.1) mmol/L Chloride 103 (96-108) mmol/L Carbon Dioxide 22 (22-29) mmol/L Anion Gap 9 L (12-20) BUN 14 (9-16) mg/dL Creatinine 0.66 (0.5-1.4) mg/dL Estim Creat Clear Calc 65.5 Estimated GFR > 60 Random Glucose 105 (60-115) mg/dL Lactic Acid (0.5-2.0) mmol/L Lactic Acid F/U @ 2Hr (0.5-2.0) mmol/L Lactic Acid F/U @ 4Hr (0.5-2.0) mmol/L Calcium 8.7 D (8.4-10.2) mg/dL Magnesium 1.5 L (1.6-2.6) mg/dL Total Bilirubin 0.3 (0.0-1.0) mg/dL AST 21 (5-31) U/L ALT 20 (0-31) U/L Alkaline Phosphatase 124 H (39-117) U/L C-Reactive Protein 2.78 H (< or = 0.50) mg/dL Total Protein 4.7 L (6.5-8.0) g/dL Albumin 1.7 L (3.5-5.0) g/dL Urine Color Urine Appearance Urine pH (5.0-9.0) Ur Specific [place] (1.005-1.025) Urine Protein (Neg-Trace) mg/dL Urine Glucose (UA) (Negative) mg/dL Urine Ketones (Negative) mg/dL Urine Blood (Negative) Urine Nitrite (Negative) Ur Leukocyte Esterase (Negative) Urine RBC (0-2) /HPF Urine WBC (0-5) /HPF Ur Squamous Epith Cells (0-2) /HPF Ur Transition Epith Cell Ur Renal Epithelial Cell Calcium Oxalate Crystal Urine Bacteria (None Seen) Hyaline Casts (0-2) /LPF COVID-19 (RANJIT) (Negative) COVID-19 Clin Com 06/29/22 06/29/22 06/29/22 Range/Units 16:12 16:12 18:30 WBC (4.8-10.8) X10*3/uL RBC (4.20-5.50) X10*6/uL Hgb (12.0-16.0) g/dl Hct (37.0-47.0) % MCV (80.0-98.0) fL MCH (27.0-33.0) pg MCHC (31.0-35.0) g/dl RDW (11.0-16.0) % Plt Count (160-400) X10*3/uL MPV (9.4-12.3) fL Immature Gran % (Auto) (0.0-0.4) % Neut % (Auto) (45-73) % Lymph % (Auto) (20-40) % [place] % (Auto) (2-11) % Eos % (Auto) (0-4) % Baso % (Auto) (0-2) % Lymph # (Auto) (1.2-4.9) X10*3/uL [place] # (Auto) (0.1-1.2) X10*3/uL Eos # (Auto) (0.0-0.4) X10*3/uL Baso # (Auto) (0.0-0.2) X10*3/uL Abs Immat Gran (auto) (0.00-0.03) X10*3/uL Absolute Neuts (auto) (2.0-8.3) x10*3/uL Absolute Nucleated RBC (0.0-0.012) X10*3/uL Nucleated RBC % (auto) (0.0-0.2) /100WBC ESR (0-20) MM/HR Sodium (135-145) mmol/L Potassium (3.3-5.1) mmol/L Chloride (96-108) mmol/L Carbon Dioxide (22-29) mmol/L Anion Gap (12-20) BUN (9-16) mg/dL Creatinine (0.5-1.4) mg/dL Estim Creat Clear Calc Estimated GFR Random Glucose (60-115) mg/dL Lactic Acid 3.0 H* 2.6 H* (0.5-2.0) mmol/L Lactic Acid F/U @ 2Hr (0.5-2.0) mmol/L Lactic Acid F/U @ 4Hr (0.5-2.0) mmol/L Calcium (8.4-10.2) mg/dL Magnesium (1.6-2.6) mg/dL Total Bilirubin (0.0-1.0) mg/dL AST (5-31) U/L ALT (0-31) U/L Alkaline Phosphatase (39-117) U/L C-Reactive Protein (< or = 0.50) mg/dL Total Protein (6.5-8.0) g/dL Albumin (3.5-5.0) g/dL Urine Color Urine Appearance Urine pH (5.0-9.0) Ur Specific [place] (1.005-1.025) Urine Protein (Neg-Trace) mg/dL Urine Glucose (UA) (Negative) mg/dL Urine Ketones (Negative) mg/dL Urine Blood (Negative) Urine Nitrite (Negative) Ur Leukocyte Esterase (Negative) Urine RBC (0-2) /HPF Urine WBC (0-5) /HPF Ur Squamous Epith Cells (0-2) /HPF Ur Transition Epith Cell Ur Renal Epithelial Cell Calcium Oxalate Crystal Urine Bacteria (None Seen) Hyaline Casts (0-2) /LPF COVID-19 (RANJIT) Negative (Negative) COVID-19 Clin Com See Note 06/29/22 06/29/22 06/30/22 Range/Units 18:30 21:26 00:14 WBC (4.8-10.8) X10*3/uL RBC (4.20-5.50) X10*6/uL Hgb (12.0-16.0) g/dl Hct (37.0-47.0) % MCV (80.0-98.0) fL MCH (27.0-33.0) pg MCHC (31.0-35.0) g/dl RDW (11.0-16.0) % Plt Count (160-400) X10*3/uL MPV (9.4-12.3) fL Immature Gran % (Auto) (0.0-0.4) % Neut % (Auto) (45-73) % Lymph % (Auto) (20-40) % [place] % (Auto) (2-11) % Eos % (Auto) (0-4) % Baso % (Auto) (0-2) % Lymph # (Auto) (1.2-4.9) X10*3/uL [place] # (Auto) (0.1-1.2) X10*3/uL Eos # (Auto) (0.0-0.4) X10*3/uL Baso # (Auto) (0.0-0.2) X10*3/uL Abs Immat Gran (auto) (0.00-0.03) X10*3/uL Absolute Neuts (auto) (2.0-8.3) x10*3/uL Absolute Nucleated RBC (0.0-0.012) X10*3/uL Nucleated RBC % (auto) (0.0-0.2) /100WBC ESR (0-20) MM/HR Sodium (135-145) mmol/L Potassium (3.3-5.1) mmol/L Chloride (96-108) mmol/L Carbon Dioxide (22-29) mmol/L Anion Gap (12-20) BUN (9-16) mg/dL Creatinine (0.5-1.4) mg/dL Estim Creat Clear Calc Estimated GFR Random Glucose (60-115) mg/dL Lactic Acid (0.5-2.0) mmol/L Lactic Acid F/U @ 2Hr 2.1 H* (0.5-2.0) mmol/L Lactic Acid F/U @ 4Hr 2.2 H* (0.5-2.0) mmol/L Calcium (8.4-10.2) mg/dL Magnesium (1.6-2.6) mg/dL Total Bilirubin (0.0-1.0) mg/dL AST (5-31) U/L ALT (0-31) U/L Alkaline Phosphatase (39-117) U/L C-Reactive Protein (< or = 0.50) mg/dL Total Protein (6.5-8.0) g/dL Albumin (3.5-5.0) g/dL Urine Color Yellow Urine Appearance Cloudy Urine pH 6.0 (5.0-9.0) Ur Specific [place] 1.010 (1.005-1.025) Urine Protein Negative (Neg-Trace) mg/dL Urine Glucose (UA) Negative (Negative) mg/dL Urine Ketones Negative (Negative) mg/dL Urine Blood Negative (Negative) Urine Nitrite Negative (Negative) Ur Leukocyte Esterase Small (1+) H (Negative) Urine RBC 3-5 H (0-2) /HPF Urine WBC 6-10 (0-5) /HPF Ur Squamous Epith Cells 11-20 (0-2) /HPF Ur Transition Epith Cell Present Ur Renal Epithelial Cell Present Calcium Oxalate Crystal Present Urine Bacteria 1+ (None Seen) Hyaline Casts 0-2 (0-2) /LPF COVID-19 (RANJIT) (Negative) COVID-19 Clin Com Independent Historian Clinical information obtained from an independent historian. History obtained from or confirmed by: Other (patient's daughter) Discharge Plan Discharge Clinical Impression: Cellulitis Patient Disposition: Still a Patient Prescriptions: No Action buspirone 15 mg tablet 15 mg PO BID duloxetine 60 mg capsule,delayed release(DR/EC) 60 mg PO BID thiamine HCl (vitamin B1) 100 mg Tablet 100 mg PO DAILY acetaminophen 500 mg Tablet 1,000 mg PO Q8H PRN (Reason: Pain) pantoprazole 40 mg Tablet,Delayed Release (Dr/Ec) 40 mg PO DAILY Icy Hot 30-10 % Cream 1 appl TOPICAL TID PRN (Reason: Muscle Pain) Rx Instructions: to back albuterol sulfate 90 mcg/actuation HFA aerosol inhaler 2 puff inhalation Q6H PRN (Reason: shortness of breath or wheezing) fexofenadine 60 mg Tablet 60 mg PO DAILY loperamide 2 mg Tablet 2 mg PO Q6H PRN (Reason: Loose Stool) ferrous sulfate 325 mg (65 mg iron) tablet 1 tab PO DAILY promethazine 25 mg Tablet 25 mg PO QID PRN (Reason: Nausea And Vomiting) aripiprazole 2 mg Tablet 4 mg PO DAILY docusate sodium 100 mg Capsule 100 mg PO BID 30 Days Qty: 60 0RF lorazepam [Ativan] 0.5 mg tablet 1 tab PO BID PRN (Reason: anxiety) multivitamin Tablet 1 tab PO DAILY cholecalciferol (vitamin D3) 125 mcg (5,000 unit) Tablet 125 mcg PO DAILY atorvastatin 40 mg Tablet 40 mg PO BEDTIME 30 Days Qty: 30 0RF aspirin 81 mg Tablet,Delayed Release (Dr/Ec) 81 mg PO DAILY 30 Days Qty: 30 0RF oxycodone 5 mg Tablet 5 mg PO Q6H PRN (Reason: Pain, Severe (Pain Scale 7-10)) Qty: 20 0RF Rx Instructions: Partial Fill upon patient request. pramipexole 0.125 mg tablet 0.125 mg PO BID Anoro Ellipta 62.5-25 mcg/actuation blister with device 1 inh inhalation DAILY Qty: 60 11RF fluticasone propionate [Flovent HFA] 110 mcg/actuation HFA aerosol inhaler 2 puff inhalation BID 30 Days Qty: 12 11RF
--- NOTE | 2022-06-29 16:01 | MHC.EDTECH ---
pt got change into hospital attire by this pct .
[2022-06-29 16:20] LABS: MANUAL DIFF FLAG NO
[2022-06-29] MEDS: 0.9 % Sodium Chloride 1,905.09 ML 1905.09 ML IV (16:23)
[2022-06-29 16:42] LABS: Basophils Percent Auto 0.3 % (0-2); COVID-19 Test Negative (Negative); Eosinophils Absolute Auto 0.2 X10*3/uL (0.0-0.4); Eosinophils Percent Auto 4.6 % (0-4); Hemoglobin 7.6 g/dl (12.0-16.0); IDNOW Serial# 16C4AD1C; Imm Gran Abs Auto 0.04 X10*3/uL (0.00-0.03); Lymphocytes Absolute Auto 0.7 X10*3/uL (1.2-4.9); Lymphocytes Percent Auto 16.7 % (20-40); Mean Corpuscular HGB Conc 34.5 g/dl (31.0-35.0); Mean Corpuscular Hemoglobin 34.2 pg (27.0-33.0); Mean Corpuscular Volume 99.1 fL (80.0-98.0); Mean Platelet Volume 9.7 fL (9.4-12.3); Monocytes Absolute Auto 0.2 X10*3/uL (0.1-1.2); Monocytes Percent Auto 5.4 % (2-11); Neutrophils Absolute Auto 2.8 x10*3/uL (2.0-8.3); Platelet Count 158 X10*3/uL (160-400); Red Blood Count 2.22 X10*6/uL (4.20-5.50); Red Cell Distribution Width 16.8 % (11.0-16.0); White Blood Count 3.9 X10*3/uL (4.8-10.8)
[2022-06-29 16:53] LABS: Alanine Aminotransferase 20 U/L (0-31); Albumin Level 1.7 g/dL (3.5-5.0); Alkaline Phosphatase 124 U/L (39-117); Anion Gap 9 (12-20); Aspartate Amino Transferase 21 U/L (5-31); Bilirubin Total 0.3 mg/dL (0.0-1.0); Blood Urea Nitrogen 14 mg/dL (9-16); C Reactive Protein 2.78 mg/dL (< or = 0.50); Calcium 8.7 mg/dL (8.4-10.2); Carbon Dioxide 22 mmol/L (22-29); Chloride 103 mmol/L (96-108); Creatinine Clr Calc Pharmacy 65.5; Estimated Glomerular Filt Rate > 60; Glucose Random 105 mg/dL (60-115); Magnesium 1.5 mg/dL (1.6-2.6); Potassium 3.8 mmol/L (3.3-5.1); Sodium 130 mmol/L (135-145); Total Protein 4.7 g/dL (6.5-8.0)
[2022-06-29 17:02] LABS: Erythrocyte Sedimentation Rate 28 MM/HR (0-20)
[2022-06-29] MEDS: Magnesium Sulfate/D5W 1 GM/100 ML PIGGYBACK IV (17:33)
[2022-06-29 18:18] LABS: Reflex Lactate? Lactic Acid Added
--- NOTE | 2022-06-29 18:41 | MHC.EDTECH ---
pt was assisted onto bed recio ,pt voided small amount of urine .
[2022-06-29 18:45] LABS: Appearance Urine Cloudy; Color Urine Yellow; Glucose Urine UA Negative (Negative); Leukocyte Esterase Urine Small (1+) (Negative); Nitrite Urine Negative (Negative); UMIC TRIGGER UACC YES; Urine Blood Negative (Negative); Urine Ketones Negative (Negative); Urine Protein Negative (Neg-Trace)
[2022-06-29 19:02] LABS: Lactic Acid 2.6 mmol/L (0.5-2.0)
[2022-06-29 19:04] LABS: Bacteria Urine 1+ (None Seen); Calcium Oxalate Crystals Urine Present; Hyaline Casts Urine 0-2 /LPF (0-2); Renal Epithelial Cells Urine Present; Transitional Epi Cells Urine Present; UACC Culture Trigger YES
--- NOTE | 2022-06-29 19:10 | MHC.EDTECH ---
pt ate 100 % of dinner and ml fluids .
[2022-06-29] MEDS: 0.9 % Sodium Chloride 1,000 ML 999 ML IV (20:25)
[2022-06-29] MEDS: fentaNYL citrate/PF 100 MCG/2 ML VIAL 25 MCG IVPUSH (20:25)
[2022-06-29] MEDS: Doxycycline Monohydrate 100 MG CAPSULE PO (20:26)
[2022-06-29 20:34] LABS: Reflex Lactate? Lactic Acid Added
--- NOTE | 2022-06-29 20:34 | PC.NURSE ---
Assumed care of pt. at 1900. Pt. resting quietly in bed at this time. Pt. reporting pain in her left arm at a 10/10. Pt. reports that the oxy she usually takes doesn't touch the pain. Blood pressure is a little soft at 107/50. Let the PA know and pt. medicated with fentanyl per SEP. IVF NS running. Pt. states she's tired and is going to go to sleep.
[2022-06-29 21:57] LABS: ~Lactic Acid-LAB USE ONLY 2.1 mmol/L (0.5-2.0)
[2022-06-29 23:29] LABS: Reflex Lactate? 2 Y
[2022-06-30] VITALS (14 sets, daily range): BP systolic 93–139; BP diastolic 43–67; PULSE 74–109; RESP 16–20; TEMP 36.6–37.6; O2SAT 96–100
--- NOTE | 2022-06-30 00:16 | MHC.EDTECH ---
PT WAS WET ,CARE GIVEN AND BED LINEN CHANGE ,
--- NOTE | 2022-06-30 00:35 | PC.NURSE ---
Pt. resting in bed asking to be repositioned. Repositioned pt. and changed out bedding. Pt. placed on purewick to prevent skin breakdown as she is unable to get up to use the restroom and is at risk for breakdown. Pt. was repositioned in bed 2 additional times.
[2022-06-30 00:39] LABS: ~Lactic Acid-LAB USE ONLY 2.2 mmol/L (0.5-2.0)
[2022-06-30] MEDS: 0.9 % Sodium Chloride 1,000 ML 125 ML IVCONT (01:25)
--- NOTE | 2022-06-30 02:41 | PC.NURSE ---
Pt. BP continues to be soft often dipping into the 90's over 40's. Pulse has been elevated as well at around 104-106. Notified provider and pt. will be admitted.
[2022-06-30] MEDS: cefTRIAXone sodium 1 GM in 0.9 % Sodium Chloride 50 ML IV (03:00)
[2022-06-30] MEDS: 0.9 % Sodium Chloride 500 ML IV (03:02)
--- NOTE | 2022-06-30 05:50 | P.HPHOSP_ITS ---
History of Present Illness Date of Service: 06/30/22 Chief Complaint: left arm redness this is a 71 yo F with pmhs of Diabetes, asthma COPD overlap syndrome, anxiety, presents the hospital with complaints of left arm redness, swelling, and tenderness. Patient reports her symptoms started few days ago, she comes from nursing facility. Patient denies any fever or chills, no chest pain, no palpitation, no abdominal pain nausea or vomiting, no diarrhea constipation, no urinary symptoms and no lower extremity edema. On her initial arrival to the ED patient hemodynamically stable with blood pressure of 104/54, she then developed noticeable hypertension, as well as tachycardia. Patient's labs are significant for WBC count of 3.9, hemoglobin of 7.6, with a baseline of 8.6, hematocrit 22, ESR 28, sodium of 130, lactic acid of 3.0, magnesium 1.5, CRP of 2.7 and UA positive for leukocyte Estrace and WBC. Patient started on IV antibiotics and will be admitted for further management Review of Systems Review of Systems: Yes all other systems are reviewed and are negative [facility] Medical History Anxiety Asthma-COPD overlap syndrome Depression Diabetes mellitus, type 2 GERD (gastroesophageal reflux disease) Hyponatremia New onset atrial fibrillation Physical deconditioning TIA (transient ischemic attack) Family History Father Cancer Mother No problems noted. Surgical History History of section History of shoulder surgery Social History Household Members: Family Housing: [facility] Unable to assess alcohol history related to: Unable to respond Alcohol intake: former Patient Tobacco Use Status: Never used Tobacco Smoked in Last 30 Days: No Use of substances other than those prescribed or required for medical reasons: No Advance Directives: Yes Advance Directives on File: Yes Advance Directives Date on File: 12/24/21 service: No Current occupational status: unemployed and retired Meds Allergies Allergy/AdvReac Type Severity Reaction Status Date / Time No Known Allergies Allergy Verified 01/28/22 02:17 [No Known Allergies*] Active Medications: Current Medications Acetaminophen (Acetaminophen 325 Mg Tablet) 650 mg PO Q6H PRN PRN Reason: Pain, Mild (Pain Scale 1-3) Doxycycline Monohydrate (Doxycycline Monohydrate 100 Mg Capsule) 100 mg PO BID [facility] Stop: 07/06/22 19:38 Last Admin: 06/29/22 20:26 Dose: 100 mg Heparin Sodium (Porcine) (Heparin Sodium,Porcine 5,000 Unit/Ml Vial) 5,000 unit SUBCUT Q12H [facility] Sodium Chloride (Ns) 1,000 mls @ 125 mls/hr IVCONT .Q8H [facility] Last Admin: 06/30/22 01:25 Dose: 125 mls/hr Lactated Ringer's (Lr) 1,000 mls @ 100 mls/hr IVCONT .Q10H [facility] Cefazolin Sodium/Dextrose (Ancef) 2 gm in 50 mls @ 100 mls/hr IV Q8H [facility] Ondansetron HCl (Ondansetron Hcl 4 Mg/2 Ml Vial) 4 mg IVPUSH Q8H PRN PRN Reason: Nausea and Vomiting Pharmacy Consult (Consult Rx Perform Med Rec) 1 each MISCELLANE ONCE PRN PRN Reason: patient is PT/CM Sodium Chloride (0.9 % Sodium Chloride Flush 3 Ml Syringe) 3 ml IVFLUSH QSHIFT [facility] Home Medications Medication Instructions Recorded Confirmed Last Taken Type buspirone 15 mg tablet 15 mg PO BID 04/17/20 04/05/22 Unknown History duloxetine 60 mg capsule,delayed 60 mg PO BID 04/17/20 04/05/22 Unknown History release pramipexole 0.125 mg tablet 0.125 mg PO BID 04/26/20 04/05/22 Unknown History acetaminophen 500 mg tablet 1,000 mg PO Q8H PRN Pain 12/21/21 04/05/22 Unknown History albuterol sulfate 90 mcg/actuation 2 puff inhalation Q6H PRN 12/21/21 04/05/22 Unknown History aerosol inhaler shortness of breath or wheezing methyl salicylate 30 %-menthol 10 1 appl topical TID PRN Muscle Pain 12/21/21 04/05/22 Unknown History % topical cream (Icy Hot) pantoprazole 40 mg tablet,delayed 40 mg PO DAILY 12/21/21 04/05/22 Unknown History release thiamine HCl (vitamin B1) 100 mg 100 mg PO DAILY 12/21/21 04/05/22 Unknown History tablet aripiprazole 2 mg tablet 4 mg PO DAILY 03/19/22 04/05/22 Unknown History ferrous sulfate 325 mg (65 mg 1 tab PO DAILY 03/19/22 04/05/22 Unknown History iron) tablet fexofenadine 60 mg tablet 60 mg PO DAILY 03/19/22 04/05/22 Unknown History loperamide 2 mg tablet 2 mg PO Q6H PRN Loose Stool 03/19/22 04/05/22 Unknown History promethazine 25 mg tablet 25 mg PO QID PRN Nausea And 03/19/22 04/05/22 Unknown History Vomiting cholecalciferol (vitamin D3) 125 125 mcg PO DAILY 04/05/22 04/05/22 Unknown History mcg (5,000 unit) tablet lorazepam 0.5 mg tablet (Ativan) 1 tab PO BID PRN anxiety 04/05/22 04/05/22 Unknown History multivitamin 1 tab PO DAILY 04/05/22 04/05/22 Unknown History Physical Exam Vital Signs and Narrative: Vital Signs: Last Vital Signs Temp 98.0 F 06/30/22 02:00 Pulse 74 06/30/22 05:41 Resp 16 06/30/22 02:00 BP 106/51 L 06/30/22 05:41 Pulse Ox 100 06/30/22 02:00 O2 Del Method 06/30/22 02:00 BMI result Body Mass Index 24.0 Const: Other: oriented to self and place General: cooperative and no acute distress Eyes: General: appearance normal, both eyes and all related structures Resp: Effort & Inspection: normal respiratory effort Auscultation: clear to auscultation bilaterally Cardio: Rate: regular rate Rhythm: regular rhythm GI: Palpation (GI): Soft to palpation Auscultation: normal bowel sounds Skin: Other: erythema, tenderness, warmth, as well as edema of the left upper extremity Neuro: Cognition (Neuro): normal cognition Extrem: General: Yes normal to inspection and Yes no pedal edema Results Labs CBC and Chem 7: 06/29/22 16:12 06/29/22 16:12 Labs: Laboratory Results - last 24 hr 06/29/22 06/29/22 06/29/22 16:12 16:12 16:12 MCV 99.1 H MCH 34.2 H MCHC 34.5 RDW 16.8 H Plt Count 158 L MPV 9.7 Immature Gran % (Auto) 1.0 H Neut % (Auto) 72.0 Lymph % (Auto) 16.7 L [place] % (Auto) 5.4 Eos % (Auto) 4.6 H Baso % (Auto) 0.3 Lymph # (Auto) 0.7 L [place] # (Auto) 0.2 Eos # (Auto) 0.2 Baso # (Auto) 0.0 Abs Immat Gran (auto) 0.04 H Absolute Neuts (auto) 2.8 Absolute Nucleated RBC 0.000 Nucleated RBC % (auto) 0.0 ESR 28 H Anion Gap 9 L Estim Creat Clear Calc 65.5 Estimated GFR > 60 Random Glucose 105 Lactic Acid Lactic Acid F/U @ 2Hr Lactic Acid F/U @ 4Hr Calcium 8.7 D Magnesium 1.5 L Total Bilirubin 0.3 AST 21 ALT 20 Alkaline Phosphatase 124 H C-Reactive Protein 2.78 H Total Protein 4.7 L Albumin 1.7 L Urine Color Urine Appearance Urine pH Ur Specific [place] Urine Protein Urine Glucose (UA) Urine Ketones Urine Blood Urine Nitrite Ur Leukocyte Esterase Urine RBC Urine WBC Ur Squamous Epith Cells Ur Transition Epith Cell Ur Renal Epithelial Cell Calcium Oxalate Crystal Urine Bacteria Hyaline Casts COVID-19 (RANJIT) COVID-19 Clin Com 06/29/22 06/29/22 06/29/22 16:12 16:12 18:30 MCV MCH MCHC RDW Plt Count MPV Immature Gran % (Auto) Neut % (Auto) Lymph % (Auto) [place] % (Auto) Eos % (Auto) Baso % (Auto) Lymph # (Auto) [place] # (Auto) Eos # (Auto) Baso # (Auto) Abs Immat Gran (auto) Absolute Neuts (auto) Absolute Nucleated RBC Nucleated RBC % (auto) ESR Anion Gap Estim Creat Clear Calc Estimated GFR Random Glucose Lactic Acid 3.0 H* 2.6 H* Lactic Acid F/U @ 2Hr Lactic Acid F/U @ 4Hr Calcium Magnesium Total Bilirubin AST ALT Alkaline Phosphatase C-Reactive Protein Total Protein Albumin Urine Color Urine Appearance Urine pH Ur Specific [place] Urine Protein Urine Glucose (UA) Urine Ketones Urine Blood Urine Nitrite Ur Leukocyte Esterase Urine RBC Urine WBC Ur Squamous Epith Cells Ur Transition Epith Cell Ur Renal Epithelial Cell Calcium Oxalate Crystal Urine Bacteria Hyaline Casts COVID-19 (RANJIT) Negative COVID-19 Clin Com See Note 06/29/22 06/29/22 06/30/22 18:30 21:26 00:14 MCV MCH MCHC RDW Plt Count MPV Immature Gran % (Auto) Neut % (Auto) Lymph % (Auto) [place] % (Auto) Eos % (Auto) Baso % (Auto) Lymph # (Auto) [place] # (Auto) Eos # (Auto) Baso # (Auto) Abs Immat Gran (auto) Absolute Neuts (auto) Absolute Nucleated RBC Nucleated RBC % (auto) ESR Anion Gap Estim Creat Clear Calc Estimated GFR Random Glucose Lactic Acid Lactic Acid F/U @ 2Hr 2.1 H* Lactic Acid F/U @ 4Hr 2.2 H* Calcium Magnesium Total Bilirubin AST ALT Alkaline Phosphatase C-Reactive Protein Total Protein Albumin Urine Color Yellow Urine Appearance Cloudy Urine pH 6.0 Ur Specific [place] 1.010 Urine Protein Negative Urine Glucose (UA) Negative Urine Ketones Negative Urine Blood Negative Urine Nitrite Negative Ur Leukocyte Esterase Small (1+) H Urine RBC 3-5 H Urine WBC 6-10 Ur Squamous Epith Cells 11-20 Ur Transition Epith Cell Present Ur Renal Epithelial Cell Present Calcium Oxalate Crystal Present Urine Bacteria 1+ Hyaline Casts 0-2 COVID-19 (RANJIT) COVID-19 Clin Com Assessment and Plan (1) Sepsis: Status: Acute (2) Left arm cellulitis: Status: Acute (3) Hypomagnesemia: Status: Acute (4) Chronic hyponatremia: Status: Acute (5) Lactic acidosis: Status: Acute (6) UTI (urinary tract infection): Status: Acute Plan 71-year-old female past medical history of diabetes, hyponatremia, depression anxiety, presents to hospital with complaints of left upper extremity swelling found to have cellulitis # sepsis - secondary to cellulitis, as well as possibly UTI - patient with left arm warmth, tenderness, edema, suggestive of cellulitis - has leukopenia, tachycardia, hypotension, lactic acidosis - patient treated with IV antibiotics, IV fluids, will follow cultures # cellulitis - acute, left upper extremity - will treat with IV antibiotic - follow cultures # UTI - positive UA - will treat with IV antibiotics - follow cultures # hypomagnesemia - repleted - will follow Mag level # chronic hyponatremia - baseline - asymptomatic - will place on NS for treatment of sepsis # diabetes - low-dose sliding scale insulin - diabetic diet # depression anxiety - continue home medications once pharmacy reconciled med list DVT prophylaxis: Heparin subQ given patient's sepsis requiring IV antibiotics patient requirement 2 night inpatient hospital stay for further management and monitoring Time Spent With Patient Time: Total time managing care of this patient today ____ minutes. Quality Stroke Does the patient have a stroke diagnosis?: No VTE Prior VTE?: No VTE Risk Level:: Medical - moderate - high VTE Device Contraindication: Treatment Not Indicated VTE Drug Contraindication: N/A - Med Ordered
[2022-06-30] MEDS: Heparin Sodium,Porcine 5,000 UNIT/ML VIAL 5000 UNIT SUBCUT ×2 (06:27→17:24)
[2022-06-30 06:37] LABS: MANUAL DIFF FLAG NO
[2022-06-30 06:40] LABS: Eosinophils Absolute Auto 0.2 X10*3/uL (0.0-0.4); Eosinophils Percent Auto 5.2 % (0-4); Imm Gran Abs Auto 0.04 X10*3/uL (0.00-0.03); Imm Gran Pct Auto 1.2 % (0.0-0.4); Lymphocytes Absolute Auto 0.7 X10*3/uL (1.2-4.9); Lymphocytes Percent Auto 19.8 % (20-40); Mean Corpuscular HGB Conc 34.5 g/dl (31.0-35.0); Mean Corpuscular Hemoglobin 33.7 pg (27.0-33.0); Mean Corpuscular Volume 97.5 fL (80.0-98.0); Mean Platelet Volume 9.2 fL (9.4-12.3); Monocytes Absolute Auto 0.2 X10*3/uL (0.1-1.2); Neutrophils Absolute Auto 2.3 x10*3/uL (2.0-8.3); Neutrophils Percent Auto 66.8 % (45-73); Platelet Count 180 X10*3/uL (160-400); Red Blood Count 1.99 X10*6/uL (4.20-5.50); Red Cell Distribution Width 16.9 % (11.0-16.0); White Blood Count 3.4 X10*3/uL (4.8-10.8)
[2022-06-30 06:41] LABS: Hemoglobin 6.7 g/dl (12.0-16.0)
[2022-06-30 06:42] LABS: Hematocrit 19.4 % (37.0-47.0)
[2022-06-30] MEDS: 0.9 % Sodium Chloride 1,000 ML 80 ML IVCONT (06:49)
[2022-06-30 06:56] LABS: Anion Gap 8 (12-20); Blood Urea Nitrogen 12 mg/dL (9-16); Calcium 7.8 mg/dL (8.4-10.2); Carbon Dioxide 20 mmol/L (22-29); Chloride 108 mmol/L (96-108); Creatinine Clr Calc Pharmacy 67.6; Estimated Glomerular Filt Rate > 60; Glucose Random 76 mg/dL (60-115); Magnesium 1.5 mg/dL (1.6-2.6); Potassium 3.6 mmol/L (3.3-5.1); Sodium 132 mmol/L (135-145)
[2022-06-30 07:31] LABS: Glucose, Whole Blood 67 mg/dL (60-115)
[2022-06-30 07:38] LABS: Ferritin 365 ng/mL (10-250)
[2022-06-30] MEDS: Doxycycline Monohydrate 100 MG CAPSULE PO ×2 (07:47→19:16)
[2022-06-30 09:07] LABS: Glucose, Whole Blood 58 mg/dL (60-115)
[2022-06-30 09:51] LABS: Glucose, Whole Blood 108 mg/dL (60-115)
--- NOTE | 2022-06-30 11:33 | MHC.CM.PN ---
IMM DELIVERED 06/30/22 AND PLACED IN CHART, CM MET W/PT WHO IS ANXIOUS AND COMPLAING SHE DOES NOT WANT TO GO BACK TO [facility] , PT UNSURE HOWEVER BELIEVES SHE IS IN STR NOT LTC, PT ALSO COMPLAINING SHE DOESN'T LIKE HER PCP AND REPORTS HE DOESN'T TAKE CARE OF HER. PT REPORTS SHE USES A WALKER AND HAS OUPT SERVICES FROM [facility] AT HOME, PT GAVE CM VERBAL PERMISSION TO CONTACT HCP LAZARO MILLER AND CM ATTEMPTED TO CONTACT LAZARO AT 11:25AM AT BOTH NUMBERS ON FILE AND DETAILED MESSAGE LEFT W/CM CONTACT INFO. PER RECORDS PT COVID VACC X4, PCP IS DR NATARAJAN W/[facility] [phone], NUMBER FOR [facility] [phone]. CM IS UNCERTAIN OF DCP AT THIS TIME, HOME W/SERVICES VS RETURN TO STR
--- NOTE | 2022-06-30 11:51 | PM.EVENT ---
Event Note Date of Service: 06/30/22 Event Note: Chart reviewed patient examined. Agree with H&P as outlined. Will transfuse 2 units of packed cells and follow-up hemoglobin Time Spent With Patient Time: Total time managing care of this patient today ____ minutes.
[2022-06-30 12:07] LABS: Glucose, Whole Blood 89 mg/dL (60-115)
[2022-06-30] MEDS: Morphine Sulfate 4 MG/ML CARTRIDGE 3 MG IVPUSH (13:26)
--- NOTE | 2022-06-30 13:26 | PHA.MEDREC ---
Pharmacy Consult ? Medication Reconciliation Pharmacy has completed the medication reconciliation. Called [facility] and had them send med list via fax.
[2022-06-30] MEDS: 0.9 % Sodium Chloride Flush 3 ML SYRINGE IVFLUSH ×2 (16:35→19:16)
[2022-06-30 16:52] LABS: Glucose, Whole Blood 126 mg/dL (60-115)
[2022-06-30] MEDS: oxyCODONE HCl Immed Release 5 MG TABLET PO (19:15)
[2022-06-30] MEDS: Acetaminophen 325 MG TABLET 650 MG PO (19:16)
[2022-06-30 20:19] LABS: Glucose, Whole Blood 101 mg/dL (60-115)
[2022-07-01] MEDS: cefTRIAXone sodium 1 GM in 0.9 % Sodium Chloride 50 ML IV (03:13)
[2022-07-01 03:44] VITALS: BP 117/62; PULSE 95; RESP 18; TEMP 36.9; O2SAT 96
[2022-07-01] MEDS: Heparin Sodium,Porcine 5,000 UNIT/ML VIAL 5000 UNIT SUBCUT ×2 (05:23→16:48)
[2022-07-01 07:21] VITALS: BP 126/61; PULSE 97; RESP 16; TEMP 36.9; O2SAT 97
[2022-07-01 08:32] LABS: Basophils Percent Auto 0.3 % (0-2); Eosinophils Absolute Auto 0.2 X10*3/uL (0.0-0.4); Eosinophils Percent Auto 5.5 % (0-4); Imm Gran Abs Auto 0.05 X10*3/uL (0.00-0.03); Imm Gran Pct Auto 1.5 % (0.0-0.4); Lymphocytes Absolute Auto 0.8 X10*3/uL (1.2-4.9); Lymphocytes Percent Auto 24.6 % (20-40); MANUAL DIFF FLAG SCAN; Mean Corpuscular HGB Conc 33.6 g/dl (31.0-35.0); Mean Corpuscular Hemoglobin 32.2 pg (27.0-33.0); Mean Corpuscular Volume 95.8 fL (80.0-98.0); Mean Platelet Volume 9.3 fL (9.4-12.3); Monocytes Absolute Auto 0.2 X10*3/uL (0.1-1.2); Monocytes Percent Auto 7.4 % (2-11); Neutrophils Percent Auto 60.7 % (45-73); Platelet Count 166 X10*3/uL (160-400); Red Blood Count 2.83 X10*6/uL (4.20-5.50); Red Cell Distribution Width 17.3 % (11.0-16.0); SCAN SMEAR FLAG 1; White Blood Count 3.3 X10*3/uL (4.8-10.8)
[2022-07-01 08:34] LABS: Hematocrit 27.1 % (37.0-47.0); Hemoglobin 9.1 g/dl (12.0-16.0)
[2022-07-01 08:48] LABS: Alanine Aminotransferase 19 U/L (0-31); Albumin Level 1.6 g/dL (3.5-5.0); Alkaline Phosphatase 106 U/L (39-117); Anion Gap 8 (12-20); Aspartate Amino Transferase 18 U/L (5-31); Bilirubin Total 0.5 mg/dL (0.0-1.0); Blood Urea Nitrogen 12 mg/dL (9-16); Calcium 8.6 mg/dL (8.4-10.2); Carbon Dioxide 22 mmol/L (22-29); Chloride 110 mmol/L (96-108); Creatinine Clr Calc Pharmacy 73.3; Estimated Glomerular Filt Rate > 60; Glucose Random 79 mg/dL (60-115); Potassium 3.7 mmol/L (3.3-5.1); Sodium 136 mmol/L (135-145); Total Protein 4.4 g/dL (6.5-8.0)
[2022-07-01 08:53] LABS: Glucose, Whole Blood 85 mg/dL (60-115)
[2022-07-01 09:01] LABS: SLIDE REVIEW VERIFIED
[2022-07-01] MEDS: Pramipexole Di-HCL 0.125 MG TABLET PO ×2 (09:13→20:03)
[2022-07-01] MEDS: Cholecalciferol (Vitamin D3) 25 MCG TABLET 125 MCG PO (09:13)
[2022-07-01] MEDS: Omeprazole 20 MG CAPSULE.DR PO ×2 (09:13→16:48)
[2022-07-01] MEDS: Docusate Sodium 100 MG CAPSULE PO ×2 (09:13→20:03)
[2022-07-01] MEDS: busPIRone HCl 5 MG TABLET 15 MG PO ×2 (09:13→20:04)
[2022-07-01] MEDS: Doxycycline Monohydrate 100 MG CAPSULE PO ×2 (09:13→20:03)
[2022-07-01] MEDS: Aspirin Enteric Coated 81 MG TABLET.DR PO (09:13)
[2022-07-01] MEDS: Magnesium Oxide 400 MG TABLET PO (09:13)
[2022-07-01] MEDS: Thiamine HCL 100 MG TABLET PO (09:13)
[2022-07-01] MEDS: Multivitamin TABLET 1 TAB PO (09:13)
[2022-07-01] MEDS: 0.9 % Sodium Chloride Flush 3 ML SYRINGE IVFLUSH ×2 (09:14→16:54)
[2022-07-01] MEDS: DULoxetine HCl 60 MG CAPSULE.DR PO ×2 (09:14→20:03)
[2022-07-01] MEDS: ARIPiprazole 2 MG TABLET 4 MG PO (09:14)
[2022-07-01] MEDS: oxyCODONE HCl Immed Release 5 MG TABLET PO ×2 (09:36→20:03)
[2022-07-01] MEDS: LORazepam 0.5 MG TABLET PO (09:36)
--- NOTE | 2022-07-01 10:22 | P.PNIM_ITS ---
Subjective Subjective Date of Service: 07/01/22 Interval History: Admitted with left arm cellulitis. Good response with antibiotics. No acute issues Review of Systems Chest pain Denies shortness of breath Denies nausea vomiting diarrhea Denies fever chills Physical Exam Vital Signs: Vital Signs: Last Vital Signs Temp 98.4 F 07/01/22 07:21 Pulse 97 07/01/22 07:21 Resp 16 07/01/22 07:21 BP 126/61 07/01/22 07:21 Pulse Ox 97 07/01/22 07:21 O2 Del Method 07/01/22 07:21 BMI result Body Mass Index 24.0 Const: Other: No acute distress Resp: Other: Clear to auscultation bilaterally no rales rhonchi or wheezes Cardio: Other: No S4; positive S1-S2; no S3 murmurs rubs or gallops GI: Other: Soft nontender nondistended. No peritoneal signs Skin: Other: Erythema to left elbow improved Objective Data Active Medications Acetaminophen (Acetaminophen 325 Mg Tablet) 650 mg PO Q6H PRN PRN Reason: Pain, Mild (Pain Scale 1-3) Last Admin: 06/30/22 19:16 Dose: 650 mg Documented By: RAJAT Albuterol/Ipratropium (Albuterol/Iprat 2.5/0.5mg 3 Ml Ampul.Neb) 3 ml INHALE Q 4H PRN PRN Reason: Shortness of Breath/Wheezing Aripiprazole (Aripiprazole 2 Mg Tablet) 4 mg PO DAILY [facility] Last Admin: 07/01/22 09:14 Dose: 4 mg Documented By: MERLYN Aspirin (Aspirin Enteric Coated 81 Mg Tablet.) 81 mg PO DAILY [facility] Last Admin: 07/01/22 09:13 Dose: 81 mg Documented By: MERLYN Atorvastatin Calcium (Atorvastatin Calcium 40 Mg Tablet) 40 mg PO BEDTIME [facility] Buspirone HCl (Buspirone Hcl 5 Mg Tablet) 15 mg PO BID [facility] Last Admin: 07/01/22 09:13 Dose: 15 mg Documented By: MERLYN Dextrose (Dextrose 50 % 25 Gm/50 Ml Syringe) 25 gm IVPUSH Q15M PRN; Protocol PRN Reason: per Hypoglycemia Standing Ord. Docusate Sodium (Docusate Sodium 100 Mg Capsule) 100 mg PO BID [facility] Last Admin: 07/01/22 09:13 Dose: 100 mg Documented By: MERLYN Doxycycline Monohydrate (Doxycycline Monohydrate 100 Mg Capsule) 100 mg PO BID [facility] Stop: 07/06/22 19:38 Last Admin: 07/01/22 09:13 Dose: 100 mg Documented By: MERLYN Duloxetine HCl (Duloxetine Hcl 60 Mg Capsule.Dr) 60 mg PO BID [facility] Last Admin: 07/01/22 09:14 Dose: 60 mg Documented By: MERLYN Glucose (Glucose Gel 15 Gm Gel..Gram.) 15 gm PO Q15M PRN; Protocol PRN Reason: per Hypoglycemia Standing Ord. Heparin Sodium (Porcine) (Heparin Sodium,Porcine 5,000 Unit/Ml Vial) 5,000 unit SUBCUT Q12H [facility] Last Admin: 07/01/22 05:23 Dose: 5,000 unit Documented By: RAJAT Ceftriaxone Sodium 1 gm/ (Sodium Chloride) 50 mls @ 100 mls/hr IV Q24H [facility] Last Infusion: 07/01/22 03:43 Dose: 0 mls/hr Documented By: RAJAT Insulin Human Lispro (Insulin Lispro 100 Unit/Ml 3 Ml Vial) 0 unit SUBCUT QIDACHS [facility]; Protocol Last Admin: 07/01/22 07:30 Dose: Not Given Documented By: MERLYN Non-Admin Reason: No Insulin Coverage Lorazepam (Lorazepam 0.5 Mg Tablet) 0.5 mg PO Q12H PRN PRN Reason: anxiety Last Admin: 07/01/22 09:36 Dose: 0.5 mg Documented By: MERLYN Magnesium Oxide (Magnesium Oxide 400 Mg Tablet) 400 mg PO DAILY [facility] Last Admin: 07/01/22 09:13 Dose: 400 mg Documented By: MERLYN Morphine Sulfate (Morphine Sulfate 4 Mg/Ml Cartridge) 3 mg IVPUSH Q4H PRN; Protocol PRN Reason: Pain, Severe (Pain Scale 7-10) Last Admin: 06/30/22 13:26 Dose: 3 mg Documented By: VADIM Multivitamins/Vitamin C (Multivitamin Tablet) 1 tab PO DAILY [facility] Last Admin: 07/01/22 09:13 Dose: 1 tab Documented By: MERLYN Non-Formulary Medication (Umeclidinium-Vilanterol [Anoro Ellipta]) 1 inhalation INHALE DAILY [facility] Omeprazole (Omeprazole 20 Mg Capsule.Dr) 20 mg PO BID@0630,1630 [facility] Last Admin: 07/01/22 09:13 Dose: 20 mg Documented By: MERLYN Ondansetron HCl (Ondansetron Hcl 4 Mg/2 Ml Vial) 4 mg IVPUSH Q8H PRN PRN Reason: Nausea and Vomiting Oxycodone HCl (Oxycodone Hcl Immed Release 5 Mg Tablet) 5 mg PO Q4H PRN PRN Reason: Pain, Severe (Pain Scale 7-10) Last Admin: 07/01/22 09:36 Dose: 5 mg Documented By: MERLYN Pharmacy Consult (Consult Rx Perform Med Rec) 1 each MISCELLANE ONCE PRN PRN Reason: Consult order Pramipexole Dihydrochloride (Pramipexole Di-Hcl 0.125 Mg Tablet) 0.125 mg PO BID [facility] Last Admin: 07/01/22 09:13 Dose: 0.125 mg Documented By: MERLYN Promethazine HCl (Promethazine Hcl 25 Mg Tablet) 25 mg PO QID PRN PRN Reason: Allergic Symptoms Sodium Chloride (0.9 % Sodium Chloride Flush 3 Ml Syringe) 3 ml IVFLUSH QSHIFT [facility] Last Admin: 07/01/22 09:14 Dose: 3 ml Documented By: MERLYN Thiamine HCl (Thiamine Hcl 100 Mg Tablet) 100 mg PO DAILY [facility] Last Admin: 07/01/22 09:13 Dose: 100 mg Documented By: MERLYN Vitamin D (Cholecalciferol (Vitamin D3) 25 Mcg Tablet) 125 mcg PO DAILY [facility] Last Admin: 07/01/22 09:13 Dose: 125 mcg Documented By: MERLYN Labs CBC & Chem 7: 07/01/22 07:56 07/01/22 07:56 Labs: Laboratory Results - last 24 hr 06/30/22 06/30/22 06/30/22 07:10 12:02 16:48 MCV MCH MCHC RDW Plt Count MPV Immature Gran % (Auto) Neut % (Auto) Lymph % (Auto) [place] % (Auto) Eos % (Auto) Baso % (Auto) Lymph # (Auto) [place] # (Auto) Eos # (Auto) Baso # (Auto) Abs Immat Gran (auto) Absolute Neuts (auto) Absolute Nucleated RBC Nucleated RBC % (auto) Smear Tech's Comments Anion Gap Estim Creat Clear Calc Estimated GFR POC Glucose 89 126 H Random Glucose Calcium Total Bilirubin AST ALT Alkaline Phosphatase Total Protein Albumin Blood Type O Positive Antibody Screen NEGATIVE Crossmatch See Detail 06/30/22 07/01/22 07/01/22 19:34 07:26 07:56 MCV 95.8 MCH 32.2 MCHC 33.6 RDW 17.3 H Plt Count 166 MPV 9.3 L Immature Gran % (Auto) 1.5 H Neut % (Auto) 60.7 Lymph % (Auto) 24.6 [place] % (Auto) 7.4 Eos % (Auto) 5.5 H Baso % (Auto) 0.3 Lymph # (Auto) 0.8 L [place] # (Auto) 0.2 Eos # (Auto) 0.2 Baso # (Auto) 0.0 Abs Immat Gran (auto) 0.05 H Absolute Neuts (auto) 2.0 Absolute Nucleated RBC 0.000 Nucleated RBC % (auto) 0.0 Smear Tech's Comments VERIFIED Anion Gap Estim Creat Clear Calc Estimated GFR POC Glucose 101 85 Random Glucose Calcium Total Bilirubin AST ALT Alkaline Phosphatase Total Protein Albumin Blood Type Antibody Screen Crossmatch 07/01/22 07:56 MCV MCH MCHC RDW Plt Count MPV Immature Gran % (Auto) Neut % (Auto) Lymph % (Auto) [place] % (Auto) Eos % (Auto) Baso % (Auto) Lymph # (Auto) [place] # (Auto) Eos # (Auto) Baso # (Auto) Abs Immat Gran (auto) Absolute Neuts (auto) Absolute Nucleated RBC Nucleated RBC % (auto) Smear Tech's Comments Anion Gap 8 L Estim Creat Clear Calc 73.3 Estimated GFR > 60 POC Glucose Random Glucose 79 Calcium 8.6 D Total Bilirubin 0.5 AST 18 ALT 19 Alkaline Phosphatase 106 Total Protein 4.4 L Albumin 1.6 L Blood Type Antibody Screen Crossmatch Microbiology Microbiology Results: Microbiology 06/29/22 16:55 Blood Culture - Preliminary Blood - Venous No growth after 24 hours. 06/29/22 16:12 Blood Culture - Preliminary Blood - Venous No growth after 24 hours. Assessment and Plan (1) Left arm cellulitis: Status: Acute (2) UTI (urinary tract infection): Status: Acute (3) Chronic hyponatremia: Status: Acute Plan 71-year-old female past medical history of diabetes, hyponatremia, depression anxiety, presents to hospital with complaints of left upper extremity swelling found to have cellulitis 1. Left elbow cellulitis - I&D completed in the ER ... No culture sent - ceftriaxone/doxycycline(2) 2. UTI - active sediment. . . Culture pending -continue ceftriaxone pending culture 3.Hypomagnesemia - still subtherapeutic. Will give 2 g of magnesium - will follow Mag level 4.Chronic hyponatremia - baseline... Normalized - asymptomatic - will place on NS for treatment of sepsis 5.Diabetes - low-dose sliding scale insulin - diabetic diet DVT prophylaxis: Heparin subQ Will require ongoing hospitalization for IV antibiotics to treat cellulitis of right elbow and pending urine culture Time Spent With Patient Time: Total time managing care of this patient today ____ minutes. Quality Stroke Does the patient have a stroke diagnosis?: No VTE Prior VTE?: No VTE Risk Level:: Medical - moderate - high VTE Device Contraindication: Treatment Not Indicated VTE Drug Contraindication: N/A - Med Ordered
[2022-07-01 11:10] LABS: Eos%MD 4.4 %; Hematocrit 26.9 % (37.0-47.0); Hemoglobin 9.1 g/dl (12.0-16.0); IG%MD 1.5 %; Mean Corpuscular HGB Conc 33.8 g/dl (31.0-35.0); Mean Corpuscular Hemoglobin 32.4 pg (27.0-33.0); Mean Corpuscular Volume 95.7 fL (80.0-98.0); Mean Platelet Volume 8.7 fL (9.4-12.3); Neut%MD 70.1 %; Platelet Count 168 X10*3/uL (160-400); Red Blood Count 2.81 X10*6/uL (4.20-5.50); Red Cell Distribution Width 17.3 % (11.0-16.0); White Blood Count 3.4 X10*3/uL (4.8-10.8)
[2022-07-01 11:29] LABS: Glucose, Whole Blood 131 mg/dL (60-115)
[2022-07-01 11:36] LABS: Band Neutrophils Percent 6 % (3-5); Eosinophils Percent Manual 1 % (0-4); Lymphocytes Absolute Manual 0.1 X10*3/uL (1.2-4.9); Lymphocytes Percent Manual 4 % (20-40); Metamyelocytes Absolute 0.1 X10*3/uL; Metamyelocytes Percent 2 %; Neutrophils Absolute Manual 3.2 X10*3/uL (2.0-8.3); Neutrophils Percent Manual 87 % (45-73)
[2022-07-01 11:37] LABS: RBC Morphology NOTED
[2022-07-01] MEDS: Magnesium Sulfate/H2O 2 GM/50 ML PIGGYBACK IV (11:37)
[2022-07-01 11:38] LABS: Acanthocytes 1+ (0-2) /OIF; Burr Cells 1+ (0-2) /OIF; Hypochromasia 1+ (5-14) /OIF; Ovalocytes 1+ (5-14) /OIF; Platelet Estimate NORMAL (NORMAL); Platelet Morphology Comment NORMAL
[2022-07-01 11:57] VITALS: PULSE 98; RESP 16; O2SAT 98
--- NOTE | 2022-07-01 12:17 | MHC.CM.PN ---
Addendum entered by Amanda Diaz 07/01/22 15:42: PT REQUESTS COUSIN BRAULIO TURK BE HER NEW HCP, PT STATES HER CURRENT ONE DOES NOT WANT TO BE ANY LONGER. CM SPOKE WITH BRAULIO SMILEY WHO IS AGREEABLE TO BE HER HCP ([phone]) NEW PROXY DONE AND FILED. COPY LEFT AT BEDSIDE FOR PT. Original Note: EMR REVIEWED. PER MD ROUNDS, PT IS NOT MEDICALLY CLEARED FOR DC (IV ABT, URINE CULTURES PENDING) CM WILL CONTINUE TO FOLLOW.
--- NOTE | 2022-07-01 13:46 | MHC.CLN ---
NUTRITION CONSULT FOR DECREASED INTAKE. CURRENT INTAKE 75-100%. CHANGED DIET TO DIABETIC 1800 KCAL DUE TO HX DM. NO ADDITIONAL NUTRITION INTERVENTIONS AT THIS TIME.
[2022-07-01 15:20] VITALS: BP 135/74; PULSE 105; RESP 16; TEMP 37.7; O2SAT 99
[2022-07-01 16:00] LABS: Glucose, Whole Blood 108 mg/dL (60-115)
[2022-07-01] MEDS: Acetaminophen 325 MG TABLET 650 MG PO (16:48)
[2022-07-01 18:11] VITALS: PULSE 116; TEMP 38.6
[2022-07-01 19:20] VITALS: BP 117/61; PULSE 110; RESP 16; TEMP 38.1; O2SAT 96
[2022-07-01 19:52] LABS: Glucose, Whole Blood 139 mg/dL (60-115)
[2022-07-01] MEDS: Atorvastatin Calcium 40 MG TABLET PO (20:03)
[2022-07-02] MEDS: oxyCODONE HCl Immed Release 5 MG TABLET PO ×3 (02:35→19:51)
[2022-07-02] MEDS: LORazepam 0.5 MG TABLET PO ×2 (02:35→15:40)
[2022-07-02 03:48] VITALS: BP 103/56; PULSE 96; RESP 18; TEMP 36.6; O2SAT 95
[2022-07-02] MEDS: cefTRIAXone sodium 1 GM in 0.9 % Sodium Chloride 50 ML IV (03:50)
[2022-07-02] MEDS: 0.9 % Sodium Chloride Flush 3 ML SYRINGE IVFLUSH ×4 (03:55→19:54)
[2022-07-02 06:14] LABS: Hematocrit 25.8 % (37.0-47.0); Hemoglobin 8.7 g/dl (12.0-16.0); Mean Corpuscular HGB Conc 33.7 g/dl (31.0-35.0); Mean Corpuscular Hemoglobin 32.6 pg (27.0-33.0); Mean Corpuscular Volume 96.6 fL (80.0-98.0); Mean Platelet Volume 9.5 fL (9.4-12.3); Platelet Count 143 X10*3/uL (160-400); Red Blood Count 2.67 X10*6/uL (4.20-5.50); White Blood Count 3.2 X10*3/uL (4.8-10.8)
[2022-07-02 06:23] LABS: Alanine Aminotransferase 18 U/L (0-31); Albumin Level 1.6 g/dL (3.5-5.0); Alkaline Phosphatase 106 U/L (39-117); Anion Gap 9 (12-20); Aspartate Amino Transferase 17 U/L (5-31); Bilirubin Total 0.2 mg/dL (0.0-1.0); Blood Urea Nitrogen 12 mg/dL (9-16); Calcium 8.6 mg/dL (8.4-10.2); Carbon Dioxide 22 mmol/L (22-29); Chloride 107 mmol/L (96-108); Creatinine Clr Calc Pharmacy 73.3; Estimated Glomerular Filt Rate > 60; Glucose Fasting 79 mg/dL (60-99); Potassium 3.9 mmol/L (3.3-5.1); Sodium 134 mmol/L (135-145); Total Protein 4.5 g/dL (6.5-8.0)
[2022-07-02] MEDS: Heparin Sodium,Porcine 5,000 UNIT/ML VIAL 5000 UNIT SUBCUT ×2 (06:23→17:27)
[2022-07-02] MEDS: Omeprazole 20 MG CAPSULE.DR PO ×2 (06:23→15:41)
[2022-07-02 07:41] LABS: Glucose, Whole Blood 80 mg/dL (60-115)
[2022-07-02 07:46] VITALS: BP 122/58; PULSE 91; RESP 16; TEMP 36.7; O2SAT 96
[2022-07-02] MEDS: ARIPiprazole 2 MG TABLET 4 MG PO (08:08)
[2022-07-02] MEDS: Doxycycline Monohydrate 100 MG CAPSULE PO ×2 (08:08→19:51)
[2022-07-02] MEDS: DULoxetine HCl 60 MG CAPSULE.DR PO ×2 (08:08→19:51)
[2022-07-02] MEDS: busPIRone HCl 5 MG TABLET 15 MG PO ×2 (08:08→19:52)
[2022-07-02] MEDS: Multivitamin TABLET 1 TAB PO (08:08)
[2022-07-02] MEDS: Pramipexole Di-HCL 0.125 MG TABLET PO ×2 (08:08→19:51)
[2022-07-02] MEDS: Magnesium Oxide 400 MG TABLET PO ×2 (08:08→19:51)
[2022-07-02] MEDS: Thiamine HCL 100 MG TABLET PO (08:08)
[2022-07-02] MEDS: Cholecalciferol (Vitamin D3) 25 MCG TABLET 125 MCG PO (08:09)
[2022-07-02] MEDS: Aspirin Enteric Coated 81 MG TABLET.DR PO (08:09)
[2022-07-02] MEDS: Docusate Sodium 100 MG CAPSULE PO ×2 (08:09→19:51)
--- NOTE | 2022-07-02 11:25 | HO.PM.IMPN ---
Subjective Subjective Date of Service: 07/02/22 Interval History: Seen in follow up for LUE cellulitis Interval history: Reports pain L shoulder with limited ROM, no injury, seems chronic. Also pain left forearm and BLE. Febrile last night to 100.6, HR 90s. No hypoxia. Has also been coughing. No sob, chest pain. Review of Systems General: No fevers, malaise, unintentional weight loss Cardiovascular: No chest pain, palpitations, or leg edema Respiratory: +cough. No shortness of breath, wheezing GI: No abdominal pain, nausea, vomiting, diarrhea : No dysuria, hematuria, increased urinary frequency MSK: No myalgia, back pain. +left shoulder pain. +pain ble Neuro: No headaches, weakness, paresthesias Skin: No rashes or lesions Physical Exam Vital Signs: Vital Signs: Last Vital Signs Temp 98.1 F 07/02/22 07:46 Pulse 91 07/02/22 07:46 Resp 16 07/02/22 07:46 BP 122/58 L 07/02/22 07:46 Pulse Ox 96 07/02/22 07:46 O2 Del Method 07/02/22 07:46 BMI result Body Mass Index 24.0 Constitutional - Awake and Alert, No apparent distress Eyes - PERRLA, EOMI Cardiovascular - S1S2, RRR, 2+ ble edema Respiratory - Normal lung expansion, Normal respiratory effort, No respiratory distress, bibasilar crackles Gastrointestinal - NT / ND; +BS; No rebound or guarding Extremities - no calf tenderness bilaterally, 2+ BLE edema. Swelling and mottling noted BLE L>R, with warmth and tenderness to palpation LLE. Significant localized swelling and warmth left forearm with slight erythema. see photo Musculoskeletal - Normal inspection Skin - Warm/Dry Neurological - Alert & oriented x3 Psychological - Appropriate affect Objective Data Active Medications Acetaminophen (Acetaminophen 325 Mg Tablet) 650 mg PO Q6H PRN PRN Reason: Pain, Mild (Pain Scale 1-3) Last Admin: 07/01/22 16:48 Dose: 650 mg Documented By: MERLYN Albuterol/Ipratropium (Albuterol/Iprat 2.5/0.5mg 3 Ml Ampul.Neb) 3 ml INHALE Q4H PRN PRN Reason: Shortness of Breath/Wheezing Aripiprazole (Aripiprazole 2 Mg Tablet) 4 mg PO DAILY [facility] Last Admin: 07/02/22 08:08 Dose: 4 mg Documented By: SUMMER Aspirin (Aspirin Enteric Coated 81 Mg Tablet.) 81 mg PO DAILY [facility] Last Admin: 07/02/22 08:09 Dose: 81 mg Documented By: SUMMER Atorvastatin Calcium (Atorvastatin Calcium 40 Mg Tablet) 40 mg PO BEDTIME [facility] Last Admin: 07/01/22 20:03 Dose: 40 mg Documented By: CAROLINE Buspirone HCl (Buspirone Hcl 5 Mg Tablet) 15 mg PO BID [facility] Last Admin: 07/02/22 08:08 Dose: 15 mg Documented By: SUMMER Dextrose (Dextrose 50 % 25 Gm/50 Ml Syringe) 25 gm IVPUSH Q15M PRN; Protocol PRN Reason: per Hypoglycemia Standing Ord. Docusate Sodium (Docusate Sodium 100 Mg Capsule) 100 mg PO BID [facility] Last Admin: 07/02/22 08:09 Dose: 100 mg Documented By: SUMMER Doxycycline Monohydrate (Doxycycline Monohydrate 100 Mg Capsule) 100 mg PO BID [facility] Stop: 07/06/22 19:38 Last Admin: 07/02/22 08:08 Dose: 100 mg Documented By: SUMMER Duloxetine HCl (Duloxetine Hcl 60 Mg Capsule.) 60 mg PO BID [facility] Last Admin: 07/02/22 08:08 Dose: 60 mg Documented By: SUMMER Glucose (Glucose Gel 15 Gm Gel..Gram.) 15 gm PO Q15M PRN; Protocol PRN Reason: per Hypoglycemia Standing Ord. Heparin Sodium (Porcine) (Heparin Sodium,Porcine 5,000 Unit/Ml Vial) 5,000 unit SUBCUT Q12H [facility] Last Admin: 07/02/22 06:23 Dose: 5,000 unit Documented By: CAROLINE Ceftriaxone Sodium 1 gm/ (Sodium Chloride) 50 mls @ 100 mls/hr IV Q24H [facility] Last Infusion: 07/02/22 04:23 Dose: 0 mls/hr Documented By: CAROLINE Insulin Human Lispro (Insulin Lispro 100 Unit/Ml 3 Ml Vial) 0 unit SUBCUT QIDACHS [facility]; Protocol Last Admin: 07/02/22 07:33 Dose: Not Given Documented By: SUMMER Non-Admin Reason: No Insulin Coverage Lorazepam (Lorazepam 0.5 Mg Tablet) 0.5 mg PO Q12H PRN PRN Reason: anxiety Last Admin: 07/02/22 02:35 Dose: 0.5 mg Documented By: ODRISM Magnesium Oxide (Magnesium Oxide 400 Mg Tablet) 400 mg PO DAILY [facility] Last Admin: 07/02/22 08:08 Dose: 400 mg Documented By: SUMMER Morphine Sulfate (Morphine Sulfate 4 Mg/Ml Cartridge) 3 mg IVPUSH Q4H PRN; Protocol PRN Reason: Pain, Severe (Pain Scale 7-10) Last Admin: 06/30/22 13:26 Dose: 3 mg Documented By: VADIM Multivitamins/Vitamin C (Multivitamin Tablet) 1 tab PO DAILY [facility] Last Admin: 07/02/22 08:08 Dose: 1 tab Documented By: SUMMER Non-Formulary Medication (Umeclidinium-Vilanterol [Anoro Ellipta]) 1 inhalation INHALE DAILY [facility] Omeprazole (Omeprazole 20 Mg Capsule.) 20 mg PO BID@0630,1630 [facility] Last Admin: 07/02/22 06:23 Dose: 20 mg Documented By: AMOR-SCOTTY Ondansetron HCl (Ondansetron Hcl 4 Mg/2 Ml Vial) 4 mg IVPUSH Q8H PRN PRN Reason: Nausea and Vomiting Oxycodone HCl (Oxycodone Hcl Immed Release 5 Mg Tablet) 5 mg PO Q4H PRN PRN Reason: Pain, Severe (Pain Scale 7-10) Last Admin: 07/02/22 09:55 Dose: 5 mg Documented By: SUMMER Pharmacy Consult (Consult Rx Perform Med Rec) 1 each MISCELLANE ONCE PRN PRN Reason: Consult order Pramipexole Dihydrochloride (Pramipexole Di-Hcl 0.125 Mg Tablet) 0.125 mg PO BID [facility] Last Admin: 07/02/22 08:08 Dose: 0.125 mg Documented By: SUMMER Promethazine HCl (Promethazine Hcl 25 Mg Tablet) 25 mg PO QID PRN PRN Reason: Allergic Symptoms Sodium Chloride (0.9 % Sodium Chloride Flush 3 Ml Syringe) 3 ml IVFLUSH QSHIFT [facility] Last Admin: 07/02/22 08:09 Dose: 3 ml Documented By: SUMMER Thiamine HCl (Thiamine Hcl 100 Mg Tablet) 100 mg PO DAILY [facility] Last Admin: 07/02/22 08:08 Dose: 100 mg Documented By: SUMMER Vitamin D (Cholecalciferol (Vitamin D3) 25 Mcg Tablet) 125 mcg PO DAILY [facility] Last Admin: 07/02/22 08:09 Dose: 125 mcg Documented By: SUMMER Labs CBC & Chem 7: 07/02/22 05:03 07/02/22 05:03 Labs: Laboratory Results - last 24 hr 06/30/22 07/01/22 07/01/22 06:32 10:42 11:19 MCV MCH MCHC RDW Plt Count MPV Absolute Nucleated RBC Nucleated RBC % (auto) Neutrophils % (Manual) 87 H Band Neutrophils % 6 H Lymphocytes % (Manual) 4 L Eosinophils % (Manual) 1 Metamyelocytes % 2 Abs Neuts (Manual) 3.2 Lymphocytes # (Manual) 0.1 L Metamyelocytes # 0.1 Platelet Estimate NORMAL Plt Morphology Comment NORMAL RBC Morphology NOTED Hypochromasia 1+ (5-14) Ovalocytes 1+ (5-14) Weston Cells 1+ (0-2) Acanthocytes (Spur) 1+ (0-2) Smear Path Review Anion Gap Estim Creat Clear Calc Estimated GFR POC Glucose 131 H Fasting Glucose Calcium Total Bilirubin AST ALT Alkaline Phosphatase Total Protein Albumin 07/01/22 07/01/22 07/02/22 15:17 19:16 05:03 MCV 96.6 MCH 32.6 MCHC 33.7 RDW 17.0 H Plt Count 143 L MPV 9.5 Absolute Nucleated RBC 0.000 Nucleated RBC % (auto) 0.0 Neutrophils % (Manual) Band Neutrophils % Lymphocytes % (Manual) Eosinophils % (Manual) Metamyelocytes % Abs Neuts (Manual) Lymphocytes # (Manual) Metamyelocytes # Platelet Estimate Plt Morphology Comment RBC Morphology Hypochromasia Ovalocytes Weston Cells Acanthocytes (Spur) Smear Path Review Anion Gap Estim Creat Clear Calc Estimated GFR POC Glucose 108 139 H Fasting Glucose Calcium Total Bilirubin AST ALT Alkaline Phosphatase Total Protein Albumin 07/02/22 07/02/22 05:03 07:29 MCV MCH MCHC RDW Plt Count MPV Absolute Nucleated RBC Nucleated RBC % (auto) Neutrophils % (Manual) Band Neutrophils % Lymphocytes % (Manual) Eosinophils % (Manual) Metamyelocytes % Abs Neuts (Manual) Lymphocytes # (Manual) Metamyelocytes # Platelet Estimate Plt Morphology Comment RBC Morphology Hypochromasia Ovalocytes Weston Cells Acanthocytes (Spur) Smear Path Review Anion Gap 9 L Estim Creat Clear Calc 73.3 Estimated GFR > 60 POC Glucose 80 Fasting Glucose 79 Calcium 8.6 Total Bilirubin 0.2 AST 17 ALT 18 Alkaline Phosphatase 106 Total Protein 4.5 L Albumin 1.6 L Microbiology Microbiology Results: Microbiology 06/29/22 16:55 Blood Culture - Preliminary Blood - Venous No growth after 48 hours. 06/29/22 16:12 Blood Culture - Preliminary Blood - Venous No growth after 48 hours. 06/29/22 Unknown Urine Culture - Final Urine clean catch - Urine garcia top Assessment and Plan (1) Left arm cellulitis: Status: Acute (2) UTI (urinary tract infection): Status: Acute (3) Chronic hyponatremia: Status: Acute Plan 71-year-old female past medical history of diabetes, hyponatremia, depression anxiety, presents to hospital with complaints of left upper extremity swelling found to have cellulitis #Left elbow cellulitis - I&D completed in the ER ... No culture sent - Still with significant swelling, warmth, mild erythema left forearm- CT ordered for further evaluation - ceftriaxone/doxycycline(3) #Sepsis- secondary to cellulitis above -Febrile, tachycardia, leukopenia appears chronic -Lactic acid trended down. No end organ damage or hypotension -Close monitoring VS -Tylenol prn fever -Treat cellulitis as above -Follow cultures #Cough/edema -Lungs with bibasilar crackles -No hx CHF -CXR ordered -BNP ordered #BLE edema with warmth, TTP, erythema LLE -Venous duplex ordered to r/o DVT #UA positive/UC negative- no infection - No further treatment indicated #Hypomagnesemia - still subtherapeutic. Will give 2 g of magnesium - will follow Mag level, replete prn #Chronic hyponatremia - baseline - asymptomatic #Diabetes - low-dose sliding scale insulin - diabetic diet DVT prophylaxis: Heparin subQ Will require ongoing hospitalization for IV antibiotics to treat cellulitis of right elbow and sepsis requiring IV abx and close monitoring of VS Time Spent With Patient Time: Total time managing care of this patient today ____ minutes. Quality Stroke Does the patient have a stroke diagnosis?: No VTE Prior VTE?: No VTE Risk Level:: Medical - moderate - high VTE Device Contraindication: Treatment Not Indicated VTE Drug Contraindication: N/A - Med Ordered
[2022-07-02 11:59] LABS: Glucose, Whole Blood 100 mg/dL (60-115)
[2022-07-02 12:04] LABS: Magnesium 1.5 mg/dL (1.6-2.6)
[2022-07-02 14:27] VITALS: PULSE 106; O2SAT 100
[2022-07-02 15:14] VITALS: BP 131/65; PULSE 103; RESP 18; TEMP 36.3; O2SAT 99
[2022-07-02] MEDS: Magnesium Sulfate/H2O 2 GM/50 ML PIGGYBACK IV (15:43)
[2022-07-02 15:49] LABS: Glucose, Whole Blood 95 mg/dL (60-115)
[2022-07-02 19:38] VITALS: BP 107/52; PULSE 97; RESP 18; TEMP 36.3; O2SAT 97
[2022-07-02] MEDS: Atorvastatin Calcium 40 MG TABLET PO (19:51)
[2022-07-02] MEDS: Acetaminophen 325 MG TABLET 650 MG PO (19:52)
[2022-07-02 20:31] LABS: Glucose, Whole Blood 98 mg/dL (60-115)
[2022-07-03] VITALS (7 sets, daily range): BP systolic 108–122; BP diastolic 58–63; PULSE 98–118; RESP 16–19; TEMP 37–37.7; O2SAT 95–98
--- NOTE | 2022-07-03 | ECG_ITS ---
Test Reason : TACHYCARDIA Blood Pressure : / mmHG Vent. Rate : 100 BPM Atrial Rate : 100 BPM P-R Int : 144 ms QRS Dur : 086 ms QT Int : 346 ms P-R-T Axes : 076 019 045 degrees QTc Int : 446 ms Normal sinus rhythm Normal ECG When compared with ECG of 05-APR-2022 11:03, No significant change was found Referred By: Gissel Farrell Electronically Signed By:Ryan Field
[2022-07-03] MEDS: cefTRIAXone sodium 1 GM in 0.9 % Sodium Chloride 50 ML IV (03:16)
[2022-07-03] MEDS: Acetaminophen 325 MG TABLET 650 MG PO ×2 (05:14→19:40)
[2022-07-03] MEDS: oxyCODONE HCl Immed Release 5 MG TABLET PO ×2 (05:14→15:07)
[2022-07-03] MEDS: Omeprazole 20 MG CAPSULE.DR PO ×2 (05:14→15:07)
[2022-07-03] MEDS: Heparin Sodium,Porcine 5,000 UNIT/ML VIAL 5000 UNIT SUBCUT ×2 (05:15→17:15)
[2022-07-03] MEDS: LORazepam 0.5 MG TABLET PO ×2 (05:19→18:21)
[2022-07-03 06:24] LABS: Hematocrit 24.1 % (37.0-47.0); Hemoglobin 8.2 g/dl (12.0-16.0); Mean Corpuscular Hemoglobin 32.7 pg (27.0-33.0); Platelet Count 155 X10*3/uL (160-400); Red Blood Count 2.51 X10*6/uL (4.20-5.50); Red Cell Distribution Width 16.8 % (11.0-16.0); White Blood Count 2.9 X10*3/uL (4.8-10.8)
[2022-07-03 06:45] LABS: Alanine Aminotransferase 17 U/L (0-31); Albumin Level 1.6 g/dL (3.5-5.0); Alkaline Phosphatase 114 U/L (39-117); Anion Gap 10 (12-20); Aspartate Amino Transferase 16 U/L (5-31); Bilirubin Total 0.3 mg/dL (0.0-1.0); Blood Urea Nitrogen 12 mg/dL (9-16); Calcium 8.9 mg/dL (8.4-10.2); Carbon Dioxide 23 mmol/L (22-29); Chloride 106 mmol/L (96-108); Creatinine Clr Calc Pharmacy 72.1; Estimated Glomerular Filt Rate > 60; Glucose Fasting 83 mg/dL (60-99); Magnesium 1.7 mg/dL (1.6-2.6); Potassium 3.9 mmol/L (3.3-5.1); Sodium 135 mmol/L (135-145); Total Protein 4.4 g/dL (6.5-8.0)
[2022-07-03 07:51] LABS: Glucose, Whole Blood 85 mg/dL (60-115)
[2022-07-03] MEDS: Thiamine HCL 100 MG TABLET PO (08:09)
[2022-07-03] MEDS: Doxycycline Monohydrate 100 MG CAPSULE PO ×2 (08:09→19:39)
[2022-07-03] MEDS: Aspirin Enteric Coated 81 MG TABLET.DR PO (08:09)
[2022-07-03] MEDS: Multivitamin TABLET 1 TAB PO (08:09)
[2022-07-03] MEDS: Pramipexole Di-HCL 0.125 MG TABLET PO ×2 (08:10→19:39)
[2022-07-03] MEDS: ARIPiprazole 2 MG TABLET 4 MG PO (08:10)
[2022-07-03] MEDS: busPIRone HCl 5 MG TABLET 15 MG PO ×2 (08:10→19:39)
[2022-07-03] MEDS: Docusate Sodium 100 MG CAPSULE PO ×2 (08:10→19:39)
[2022-07-03] MEDS: Cholecalciferol (Vitamin D3) 25 MCG TABLET 125 MCG PO (08:11)
[2022-07-03] MEDS: DULoxetine HCl 60 MG CAPSULE.DR PO ×2 (08:12→19:40)
[2022-07-03] MEDS: Magnesium Oxide 400 MG TABLET PO ×2 (08:13→19:40)
[2022-07-03] MEDS: 0.9 % Sodium Chloride Flush 3 ML SYRINGE IVFLUSH ×3 (08:13→19:40)
[2022-07-03 09:22] LABS: OBS Int Ctl Valid YES; OBS1 NEGATIVE (NEGATIVE)
[2022-07-03 11:29] LABS: Glucose, Whole Blood 102 mg/dL (60-115)
--- NOTE | 2022-07-03 14:35 | MHC.CM.PN ---
EMR REVIEWED AND PER MD ROUNDS, PT NOT MEDICALLY CLEARED FOR DC (LEFT ARM CELLULITIS REQUIRING IV ABT, FEBRILE 07/02) P.T. IS RECOMMENDING STR REHAB AND PT IS AGREEABLE, DOES NOT WANT TO RETURN TO [facility] , NEW REFERRALS PLACED, PT [facility] IS FOLLOWING FOR AVAILABILITY. CM WILL CONTINUE TO FOLLOW
[2022-07-03 16:18] LABS: Glucose, Whole Blood 103 mg/dL (60-115)
--- NOTE | 2022-07-03 16:49 | HO.PM.IMPN ---
Subjective Subjective Date of Service: 07/03/22 Interval History: Seen in follow up for LUE cellulitis Interval history: Still reporting left shoulder pain, chronic. No other pain. Afebrile. Intermittently tachcardic, EKG NSR, rate 100. Chronic leukopenia, no other SIRS critetia. Review of Systems General: No fevers, malaise, unintentional weight loss Cardiovascular: No chest pain, palpitations, or leg edema Respiratory: No shortness of breath, wheezing, cough GI: No abdominal pain, nausea, vomiting, diarrhea : No dysuria, hematuria, increased urinary frequency MSK: No myalgia, back pain. +left shoulder pain. Neuro: No headaches, weakness, paresthesias Skin: No rashes or lesions Physical Exam Vital Signs: Vital Signs: Last Vital Signs Temp 98.6 F 07/03/22 15:17 Pulse 105 H 07/03/22 15:17 Resp 18 07/03/22 15:17 BP 122/63 07/03/22 15:17 Pulse Ox 98 07/03/22 15:17 O2 Del Method 07/03/22 15:17 BMI result Body Mass Index 24.0 Constitutional - Awake and Alert, No apparent distress Eyes - PERRLA, EOMI Cardiovascular - S1S2, RRR, 2+ ble edema Respiratory - Normal lung expansion, Normal respiratory effort, No respiratory distress, bibasilar crackles Gastrointestinal - NT / ND; +BS; No rebound or guarding Extremities - no calf tenderness bilaterally, 2+ BLE edema. Swelling and hyperpigmentation noted BLE L>R, but warm. Significant localized swelling and warmth left forearm with slight erythema. Musculoskeletal - Normal inspection Skin - Warm/Dry Neurological - Alert & oriented x3 Psychological - Appropriate affect Objective Data Active Medications Acetaminophen (Acetaminophen 325 Mg Tablet) 650 mg PO Q6H PRN PRN Reason: Pain, Mild (Pain Scale 1-3) Last Admin: 07/03/22 05:14 Dose: 650 mg Documented By: JEREMIAS Albuterol/Ipratropium (Albuterol/Iprat 2.5/0.5mg 3 Ml Ampul.Neb) 3 ml INHALE Q4H PRN PRN Reason: Shortness of Breath/Wheezing Aripiprazole (Aripiprazole 2 Mg Tablet) 4 mg PO DAILY [facility] Last Admin: 07/03/22 08:10 Dose: 4 mg Documented By: SUMMER Aspirin (Aspirin Enteric Coated 81 Mg Tablet.) 81 mg PO DAILY [facility] Last Admin: 07/03/22 08:09 Dose: 81 mg Documented By: SUMMER Atorvastatin Calcium (Atorvastatin Calcium 40 Mg Tablet) 40 mg PO BEDTIME [facility] Last Admin: 07/02/22 19:51 Dose: 40 mg Documented By: RAJAT Buspirone HCl (Buspirone Hcl 5 Mg Tablet) 15 mg PO BID [facility] Last Admin: 07/03/22 08:10 Dose: 15 mg Documented By: SUMMER Dextrose (Dextrose 50 % 25 Gm/50 Ml Syringe) 25 gm IVPUSH Q15M PRN; Protocol PRN Reason: per Hypoglycemia Standing Ord. Docusate Sodium (Docusate Sodium 100 Mg Capsule) 100 mg PO BID [facility] Last Admin: 07/03/22 08:10 Dose: 100 mg Documented By: SUMMER Doxycycline Monohydrate (Doxycycline Monohydrate 100 Mg Capsule) 100 mg PO BID [facility] Stop: 07/06/22 19:38 Last Admin: 07/03/22 08:09 Dose: 100 mg Documented By: SUMMER Duloxetine HCl (Duloxetine Hcl 60 Mg Capsule.) 60 mg PO BID [facility] Last Admin: 07/03/22 08:12 Dose: 60 mg Documented By: SUMMER Glucose (Glucose Gel 15 Gm Gel..Gram.) 15 gm PO Q15M PRN; Protocol PRN Reason: per Hypoglycemia Standing Ord. Heparin Sodium (Porcine) (Heparin Sodium,Porcine 5,000 Unit/Ml Vial) 5,000 unit SUBCUT Q12H [facility] Last Admin: 07/03/22 05:15 Dose: 5,000 unit Documented By: JEREMIAS Ceftriaxone Sodium 1 gm/ (Sodium Chloride) 50 mls @ 100 mls/hr IV Q24H [facility] Last Infusion: 07/03/22 04:04 Dose: 0 mls/hr Documented By: RAJAT Insulin Human Lispro (Insulin Lispro 100 Unit/Ml 3 Ml Vial) 0 unit SUBCUT QIDACHS [facility]; Protocol Last Admin: 07/03/22 11:47 Dose: Not Given Documented By: SUMMER Non-Admin Reason: No Insulin Coverage Lorazepam (Lorazepam 0.5 Mg Tablet) 0.5 mg PO Q12H PRN PRN Reason: anxiety Last Admin: 07/03/22 05:19 Dose: 0.5 mg Documented By: JEREMIAS Magnesium Oxide (Magnesium Oxide 400 Mg Tablet) 400 mg PO BID [facility] Last Admin: 07/03/22 08:13 Dose: 400 mg Documented By: SUMMER Morphine Sulfate (Morphine Sulfate 4 Mg/Ml Cartridge) 3 mg IVPUSH Q4H PRN; Protocol PRN Reason: Pain, Severe (Pain Scale 7-10) Last Admin: 06/30/22 13:26 Dose: 3 mg Documented By: VADIM Multivitamins/Vitamin C (Multivitamin Tablet) 1 tab PO DAILY [facility] Last Admin: 07/03/22 08:09 Dose: 1 tab Documented By: SUMMER Non-Formulary Medication (Umeclidinium-Vilanterol [Anoro Ellipta]) 1 inhalation INHALE DAILY [facility] Omeprazole (Omeprazole 20 Mg Capsule.Dr) 20 mg PO BID@0630,1630 [facility] Last Admin: 07/03/22 15:07 Dose: 20 mg Documented By: SUMMER Ondansetron HCl (Ondansetron Hcl 4 Mg/2 Ml Vial) 4 mg IVPUSH Q8H PRN PRN Reason: Nausea and Vomiting Oxycodone HCl (Oxycodone Hcl Immed Release 5 Mg Tablet) 5 mg PO Q4H PRN PRN Reason: Pain, Severe (Pain Scale 7-10) Last Admin: 07/03/22 15:07 Dose: 5 mg Documented By: SUMMER Pharmacy Consult (Consult Rx Perform Med Rec) 1 each MISCELLANE ONCE PRN PRN Reason: Consult order Pramipexole Dihydrochloride (Pramipexole Di-Hcl 0.125 Mg Tablet) 0.125 mg PO BID [facility] Last Admin: 07/03/22 08:10 Dose: 0.125 mg Documented By: SUMMER Promethazine HCl (Promethazine Hcl 25 Mg Tablet) 25 mg PO QID PRN PRN Reason: Allergic Symptoms Sodium Chloride (0.9 % Sodium Chloride Flush 3 Ml Syringe) 3 ml IVFLUSH QSHIFT [facility] Last Admin: 07/03/22 15:08 Dose: 3 ml Documented By: SUMMER Thiamine HCl (Thiamine Hcl 100 Mg Tablet) 100 mg PO DAILY [facility] Last Admin: 07/03/22 08:09 Dose: 100 mg Documented By: SUMMER Vitamin D (Cholecalciferol (Vitamin D3) 25 Mcg Tablet) 125 mcg PO DAILY [facility] Last Admin: 07/03/22 08:11 Dose: 125 mcg Documented By: SUMMER Labs CBC & Chem 7: 07/03/22 05:06 07/03/22 05:06 Labs: Laboratory Results - last 24 hr 07/02/22 07/03/22 07/03/22 19:41 05:06 05:06 MCV 96.0 MCH 32.7 MCHC 34.0 RDW 16.8 H Plt Count 155 L MPV 9.0 L Absolute Nucleated RBC 0.000 Nucleated RBC % (auto) 0.0 Anion Gap 10 L Estim Creat Clear Calc 72.1 Estimated GFR > 60 POC Glucose 98 Fasting Glucose 83 Calcium 8.9 Magnesium 1.7 Total Bilirubin 0.3 AST 16 ALT 17 Alkaline Phosphatase 114 Total Protein 4.4 L Albumin 1.6 L Stool Occult Blood 07/03/22 07/03/22 07/03/22 07:37 09:00 11:06 MCV MCH MCHC RDW Plt Count MPV Absolute Nucleated RBC Nucleated RBC % (auto) Anion Gap Estim Creat Clear Calc Estimated GFR POC Glucose 85 102 Fasting Glucose Calcium Magnesium Total Bilirubin AST ALT Alkaline Phosphatase Total Protein Albumin Stool Occult Blood NEGATIVE 07/03/22 15:47 MCV MCH MCHC RDW Plt Count MPV Absolute Nucleated RBC Nucleated RBC % (auto) Anion Gap Estim Creat Clear Calc Estimated GFR POC Glucose 103 Fasting Glucose Calcium Magnesium Total Bilirubin AST ALT Alkaline Phosphatase Total Protein Albumin Stool Occult Blood Assessment and Plan (1) Left arm cellulitis: Status: Acute (2) UTI (urinary tract infection): Status: Acute (3) Chronic hyponatremia: Status: Acute Plan 71-year-old female past medical history of diabetes, hyponatremia, depression anxiety, presents to hospital with complaints of left upper extremity swelling found to have cellulitis #Left elbow cellulitis - I&D completed in the ER ... No culture sent - Still with significant swelling, warmth, mild erythema left forearm- CT ordered for further evaluation- pending - ceftriaxone/doxycycline(4) #Sepsis- secondary to cellulitis above- resolved -Intermittent tachycardiam, EKG with NSR rate 100, leukopenia appears chronic -Lactic acid trended down. No end organ damage or hypotension -Close monitoring VS -Tylenol prn fever -Treat cellulitis as above -Follow cultures #Cough/edema -Lungs with bibasilar crackles -No hx CHF -CXR ordered -BNP ordered #BLE edema with warmth, hyperpigmentation -Venous duplex negative for DVT #UA positive/UC negative- no infection - No further treatment indicated #Hypomagnesemia - Resolved - Continue mag 400mg BID #Chronic hyponatremia - baseline - asymptomatic #Diabetes - low-dose sliding scale insulin - diabetic diet DVT prophylaxis: Heparin subQ Will require ongoing hospitalization for IV antibiotics to treat cellulitis of right elbow and sepsis requiring IV abx and close monitoring of VS Time Spent With Patient Time: Total time managing care of this patient today ____ minutes. Quality Stroke Does the patient have a stroke diagnosis?: No VTE Prior VTE?: No VTE Risk Level:: Medical - moderate - high VTE Device Contraindication: Treatment Not Indicated VTE Drug Contraindication: N/A - Med Ordered
[2022-07-03] MEDS: Albuterol/Iprat 2.5/0.5MG 3 ML AMPUL.NEB INHALE (17:54)
[2022-07-03] MEDS: Atorvastatin Calcium 40 MG TABLET PO (19:39)
[2022-07-03 20:01] LABS: Glucose, Whole Blood 109 mg/dL (60-115)
[2022-07-04 03:36] VITALS: BP 118/56; PULSE 100; RESP 18; TEMP 36.9; O2SAT 96
[2022-07-04] MEDS: cefTRIAXone sodium 1 GM in 0.9 % Sodium Chloride 50 ML IV (03:36)
[2022-07-04] MEDS: Omeprazole 20 MG CAPSULE.DR PO ×2 (05:50→16:09)
[2022-07-04] MEDS: Heparin Sodium,Porcine 5,000 UNIT/ML VIAL 5000 UNIT SUBCUT ×2 (05:50→16:09)
[2022-07-04] MEDS: oxyCODONE HCl Immed Release 5 MG TABLET PO ×3 (06:34→21:20)
[2022-07-04 06:42] LABS: Hematocrit 24.7 % (37.0-47.0); Hemoglobin 8.4 g/dl (12.0-16.0); Mean Corpuscular Hemoglobin 32.8 pg (27.0-33.0); Mean Corpuscular Volume 96.5 fL (80.0-98.0); Mean Platelet Volume 9.1 fL (9.4-12.3); Platelet Count 146 X10*3/uL (160-400); Red Blood Count 2.56 X10*6/uL (4.20-5.50); Red Cell Distribution Width 16.6 % (11.0-16.0); White Blood Count 2.9 X10*3/uL (4.8-10.8)
[2022-07-04 06:58] LABS: Alanine Aminotransferase 18 U/L (0-31); Albumin Level 1.7 g/dL (3.5-5.0); Alkaline Phosphatase 126 U/L (39-117); Anion Gap 10 (12-20); Aspartate Amino Transferase 20 U/L (5-31); Bilirubin Total 0.3 mg/dL (0.0-1.0); Blood Urea Nitrogen 13 mg/dL (9-16); Calcium 9.3 mg/dL (8.4-10.2); Carbon Dioxide 24 mmol/L (22-29); Chloride 105 mmol/L (96-108); Creatinine Clr Calc Pharmacy 67.6; Estimated Glomerular Filt Rate > 60; Glucose Fasting 83 mg/dL (60-99); Magnesium 1.6 mg/dL (1.6-2.6); Potassium 4.1 mmol/L (3.3-5.1); Sodium 135 mmol/L (135-145); Total Protein 4.7 g/dL (6.5-8.0)
[2022-07-04 07:17] LABS: Glucose, Whole Blood 89 mg/dL (60-115)
[2022-07-04 07:32] VITALS: BP 132/67; PULSE 101; RESP 16; TEMP 37.6; O2SAT 95
[2022-07-04] MEDS: Acetaminophen 325 MG TABLET 650 MG PO ×2 (08:05→21:20)
[2022-07-04] MEDS: Doxycycline Monohydrate 100 MG CAPSULE PO ×2 (08:05→19:45)
[2022-07-04] MEDS: DULoxetine HCl 60 MG CAPSULE.DR PO ×2 (08:05→19:45)
[2022-07-04] MEDS: busPIRone HCl 5 MG TABLET 15 MG PO ×2 (08:05→19:45)
[2022-07-04] MEDS: Multivitamin TABLET 1 TAB PO (08:05)
[2022-07-04] MEDS: Cholecalciferol (Vitamin D3) 25 MCG TABLET 125 MCG PO (08:05)
[2022-07-04] MEDS: Aspirin Enteric Coated 81 MG TABLET.DR PO (08:05)
[2022-07-04] MEDS: Pramipexole Di-HCL 0.125 MG TABLET PO ×2 (08:05→19:45)
[2022-07-04] MEDS: Docusate Sodium 100 MG CAPSULE PO ×2 (08:05→19:45)
[2022-07-04] MEDS: ARIPiprazole 2 MG TABLET 4 MG PO (08:05)
[2022-07-04] MEDS: 0.9 % Sodium Chloride Flush 3 ML SYRINGE IVFLUSH ×3 (08:06→19:45)
[2022-07-04] MEDS: Magnesium Oxide 400 MG TABLET PO ×2 (08:06→19:45)
[2022-07-04] MEDS: Thiamine HCL 100 MG TABLET PO (08:06)
[2022-07-04 11:47] LABS: Glucose, Whole Blood 95 mg/dL (60-115)
--- NOTE | 2022-07-04 11:47 | P.PNIM_ITS ---
Subjective Subjective Date of Service: 07/04/22 Interval History: seen and examined this morning follow up for left arm cellulitis awake, alert - slow to respond to questions. Alert and oriented to person place. reporting pain in b/l shoulders which she states in chronic No significant pain at the left elbow. Denies fever, chills Review of Systems Review of Systems: Yes all other systems are reviewed and are negative Constitutional Constitutional: Denies chills and Denies fever(s) Cardiovascular Cardiovascular: Denies chest pain, Denies palpitations and Denies dyspnea Respiratory Respiratory: Denies cough and Denies dyspnea Gastrointestinal Gastrointestinal: Denies abdominal pain, Denies nausea and Denies vomiting Endocrine Endocrine: Denies palpitations Physical Exam Vital Signs: Vital Signs: Last Vital Signs Temp 99.6 F 07/04/22 07:32 Pulse 101 H 07/04/22 07:32 Resp 16 07/04/22 07:32 BP 132/67 07/04/22 07:32 Pulse Ox 95 07/04/22 07:32 O2 Del Method 07/04/22 07:32 BMI result Body Mass Index 24.0 Const: General: cooperative, comfortable, no acute distress, alert and awake Orientation/consciousness: oriented to person and oriented to place Resp: Effort & Inspection: normal respiratory effort and able to speak in complete sentences Cardio: Rate: regular rate Heart sounds: S1 normal heart sound present and S2 normal heart sound present GI: Inspection: No distended Palpation (GI): Soft to palpation and nontender Skin: Other: left elbow - full ROM, still with swelling, minimal erythema. warmth b/l lower extremities - appears unchanged from previous image. no significant warmth of left leg when compared to right Neuro: Other: able to move all four extremities spontaneously slow to respond to questions; no focal neuro deficits appreciated General: oriented to person and oriented to place Extrem: Other: 1-2+edema b/l lower extremities Objective Data Active Medications Acetaminophen (Acetaminophen 325 Mg Tablet) 650 mg PO Q6H PRN PRN Reason: Pain, Mild (Pain Scale 1-3) Last Admin: 07/04/22 08:05 Dose: 650 mg Documented By: SUMMER Albuterol/Ipratropium (Albuterol/Iprat 2.5/0.5mg 3 Ml Ampul.Neb) 3 ml INHALE Q4H PRN PRN Reason: Shortness of Breath/Wheezing Last Admin: 07/03/22 17:54 Dose: 3 ml Documented By: AMY Aripiprazole (Aripiprazole 2 Mg Tablet) 4 mg PO DAILY [facility] Last Admin: 07/04/22 08:05 Dose: 4 mg Documented By: SUMMER Aspirin (Aspirin Enteric Coated 81 Mg Tablet.) 81 mg PO DAILY [facility] Last Admin: 07/04/22 08:05 Dose: 81 mg Documented By: SUMMER Atorvastatin Calcium (Atorvastatin Calcium 40 Mg Tablet) 40 mg PO BEDTIME [facility] Last Admin: 07/03/22 19:39 Dose: 40 mg Documented By: RAJAT Buspirone HCl (Buspirone Hcl 5 Mg Tablet) 15 mg PO BID [facility] Last Admin: 07/04/22 08:05 Dose: 15 mg Documented By: SUMMER Dextrose (Dextrose 50 % 25 Gm/50 Ml Syringe) 25 gm IVPUSH Q15M PRN; Protocol PRN Reason: per Hypoglycemia Standing Ord. Docusate Sodium (Docusate Sodium 100 Mg Capsule) 100 mg PO BID [facility] Last Admin: 07/04/22 08:05 Dose: 100 mg Documented By: SUMMER Doxycycline Monohydrate (Doxycycline Monohydrate 100 Mg Capsule) 100 mg PO BID [facility] Stop: 07/06/22 19:38 Last Admin: 07/04/22 08:05 Dose: 100 mg Documented By: SUMMER Duloxetine HCl (Duloxetine Hcl 60 Mg Capsule.) 60 mg PO BID [facility] Last Admin: 07/04/22 08:05 Dose: 60 mg Documented By: SUMMER Glucose (Glucose Gel 15 Gm Gel..Gram.) 15 gm PO Q15M PRN; Protocol PRN Reason: per Hypoglycemia Standing Ord. Heparin Sodium (Porcine) (Heparin Sodium,Porcine 5,000 Unit/Ml Vial) 5,000 unit SUBCUT Q12H [facility] Last Admin: 07/04/22 05:50 Dose: 5,000 unit Documented By: RAJAT Ceftriaxone Sodium 1 gm/ (Sodium Chloride) 50 mls @ 100 mls/hr IV Q24H [facility] Last Infusion: 07/04/22 04:11 Dose: 0 mls/hr Documented By: RAJAT Insulin Human Lispro (Insulin Lispro 100 Unit/Ml 3 Ml Vial) 0 unit SUBCUT QIDACHS [facility]; Protocol Last Admin: 07/04/22 11:43 Dose: Not Given Documented By: SUMMER Non-Admin Reason: No Insulin Coverage Lorazepam (Lorazepam 0.5 Mg Tablet) 0.5 mg PO Q12H PRN PRN Reason: anxiety Last Admin: 07/03/22 18:21 Dose: 0.5 mg Documented By: SUMMER Magnesium Oxide (Magnesium Oxide 400 Mg Tablet) 400 mg PO BID [facility] Last Admin: 07/04/22 08:06 Dose: 400 mg Documented By: SUMMER Morphine Sulfate (Morphine Sulfate 4 Mg/Ml Cartridge) 3 mg IVPUSH Q4H PRN; Protocol PRN Reason: Pain, Severe (Pain Scale 7-10) Last Admin: 06/30/22 13:26 Dose: 3 mg Documented By: VADIM Multivitamins/Vitamin C (Multivitamin Tablet) 1 tab PO DAILY [facility] Last Admin: 07/04/22 08:05 Dose: 1 tab Documented By: SUMMER Non-Formulary Medication (Umeclidinium-Vilanterol [Anoro Ellipta]) 1 inhalation INHALE DAILY [facility] Omeprazole (Omeprazole 20 Mg Capsule.Dr) 20 mg PO BID@0630,1630 [facility] Last Admin: 07/04/22 05:50 Dose: 20 mg Documented By: RAJAT Ondansetron HCl (Ondansetron Hcl 4 Mg/2 Ml Vial) 4 mg IVPUSH Q8H PRN PRN Reason: Nausea and Vomiting Oxycodone HCl (Oxycodone Hcl Immed Release 5 Mg Tablet) 5 mg PO Q4H PRN PRN Reason: Pain, Severe (Pain Scale 7-10) Last Admin: 07/04/22 06:34 Dose: 5 mg Documented By: RAJAT Pharmacy Consult (Consult Rx Perform Med Rec) 1 each MISCELLANE ONCE PRN PRN Reason: Consult order Pramipexole Dihydrochloride (Pramipexole Di-Hcl 0.125 Mg Tablet) 0.125 mg PO BID [facility] Last Admin: 07/04/22 08:05 Dose: 0.125 mg Documented By: SUMMER Promethazine HCl (Promethazine Hcl 25 Mg Tablet) 25 mg PO QID PRN PRN Reason: Allergic Symptoms Sodium Chloride (0.9 % Sodium Chloride Flush 3 Ml Syringe) 3 ml IVFLUSH QSHIFT [facility] Last Admin: 07/04/22 08:06 Dose: 3 ml Documented By: SUMMER Thiamine HCl (Thiamine Hcl 100 Mg Tablet) 100 mg PO DAILY [facility] Last Admin: 07/04/22 08:06 Dose: 100 mg Documented By: SUMMER Vitamin D (Cholecalciferol (Vitamin D3) 25 Mcg Tablet) 125 mcg PO DAILY [facility] Last Admin: 07/04/22 08:05 Dose: 125 mcg Documented By: SUMMER Labs CBC & Chem 7: 07/04/22 05:09 07/04/22 05:09 Labs: Laboratory Results - last 24 hr 07/03/22 07/03/22 07/04/22 15:47 19:47 05:09 MCV 96.5 MCH 32.8 MCHC 34.0 RDW 16.6 H Plt Count 146 L MPV 9.1 L Absolute Nucleated RBC 0.000 Nucleated RBC % (auto) 0.0 Anion Gap Estim Creat Clear Calc Estimated GFR POC Glucose 103 109 Fasting Glucose Calcium Magnesium Total Bilirubin AST ALT Alkaline Phosphatase Total Protein Albumin 07/04/22 07/04/22 07/04/22 05:09 07:14 11:40 MCV MCH MCHC RDW Plt Count MPV Absolute Nucleated RBC Nucleated RBC % (auto) Anion Gap 10 L Estim Creat Clear Calc 67.6 Estimated GFR > 60 POC Glucose 89 95 Fasting Glucose 83 Calcium 9.3 Magnesium 1.6 Total Bilirubin 0.3 AST 20 ALT 18 Alkaline Phosphatase 126 H Total Protein 4.7 L Albumin 1.7 L Assessment and Plan (1) Left arm cellulitis: Status: Acute Plan 71-year-old female past medical history of diabetes, hyponatremia, depression anxiety, presents to hospital with complaints of left upper extremity swelling found to have cellulitis Left elbow cellulitis - I&D completed in the ER ... No culture sent - CT left arm showing swelling but no discrete fluid collection. pt has full ROM - continue ceftriaxone/doxycycline(5) - plan for total 7-10days - will obtain US of left arm to rule out DVT -blood cultures negative to date Sepsis- secondary to cellulitis above- resolved Intermittent tachycardia, EKG with NSR rate 100, leukopenia appears chronic. No temp since 07/01 Lactic acid trended down. No end organ damage or hypotension Cough/edema cxr negative, pt on room air no cough today BLE edema with warmth, hyperpigmentation Venous duplex negative for DVT appears unchanged, likely chronic, not infection UA positive/UC negative- no infection - No further treatment indicated Hypomagnesemia Resolved -Continue mag 400mg BID Chronic hyponatremia at baseline Diabetes - low-dose sliding scale insulin - diabetic diet acute on chronic normocytic anemia anemia s/p 2U RBC with improvement in H/H stool occult negative. no active bleeding noted H/H has remained stable outpatient follow up Thrombocytopenia likely r/t sepsis outpatient follow up DVT prophylaxis: Heparin subQ dispo - seen by PT - rec STR, CM aware attending - dr. de la rosa Will require ongoing hospitalization for IV antibiotics to treat cellulitis of right elbow and sepsis requiring IV abx and close monitoring of VS Time Spent With Patient Time: Total time managing care of this patient today ____ minutes. Quality Stroke Does the patient have a stroke diagnosis?: No VTE Prior VTE?: No VTE Risk Level:: Medical - moderate - high VTE Device Contraindication: Treatment Not Indicated VTE Drug Contraindication: N/A - Med Ordered
[2022-07-04] MEDS: Albuterol/Iprat 2.5/0.5MG 3 ML AMPUL.NEB INHALE (15:25)
[2022-07-04 15:26] VITALS: PULSE 96; RESP 16; O2SAT 98
[2022-07-04 15:27] VITALS: PULSE 126; O2SAT 98
[2022-07-04 15:35] VITALS: BP 112/58; PULSE 109; RESP 17; TEMP 37.5; O2SAT 100
[2022-07-04] MEDS: LORazepam 0.5 MG TABLET PO (16:09)
[2022-07-04] MEDS: Insulin Lispro 100 UNIT/ML 3 ML VIAL SUBCUT (16:10)
[2022-07-04 19:19] VITALS: BP 109/54; PULSE 106; RESP 18; TEMP 37.4; O2SAT 98
[2022-07-04] MEDS: Atorvastatin Calcium 40 MG TABLET PO (19:45)
[2022-07-05] MEDS: cefTRIAXone sodium 1 GM in 0.9 % Sodium Chloride 50 ML IV (02:17)
[2022-07-05 03:41] VITALS: BP 109/57; PULSE 104; RESP 18; TEMP 36.8; O2SAT 96
[2022-07-05] MEDS: oxyCODONE HCl Immed Release 5 MG TABLET PO ×3 (03:43→19:26)
[2022-07-05] MEDS: Omeprazole 20 MG CAPSULE.DR PO ×2 (05:55→16:47)
[2022-07-05] MEDS: Heparin Sodium,Porcine 5,000 UNIT/ML VIAL 5000 UNIT SUBCUT ×2 (05:55→16:47)
[2022-07-05 06:56] LABS: Magnesium 1.5 mg/dL (1.6-2.6)
[2022-07-05 07:53] VITALS: BP 103/59; PULSE 104; RESP 14; TEMP 35.8; O2SAT 94
[2022-07-05] MEDS: Cholecalciferol (Vitamin D3) 25 MCG TABLET 125 MCG PO (08:12)
[2022-07-05] MEDS: ARIPiprazole 2 MG TABLET 4 MG PO (08:12)
[2022-07-05] MEDS: busPIRone HCl 5 MG TABLET 15 MG PO ×2 (08:13→19:26)
[2022-07-05] MEDS: Docusate Sodium 100 MG CAPSULE PO ×2 (08:13→19:28)
[2022-07-05] MEDS: Thiamine HCL 100 MG TABLET PO (08:13)
[2022-07-05] MEDS: Aspirin Enteric Coated 81 MG TABLET.DR PO (08:13)
[2022-07-05] MEDS: DULoxetine HCl 60 MG CAPSULE.DR PO (08:13)
[2022-07-05] MEDS: Multivitamin TABLET 1 TAB PO (08:14)
[2022-07-05] MEDS: Doxycycline Monohydrate 100 MG CAPSULE PO ×2 (08:14→19:29)
[2022-07-05] MEDS: 0.9 % Sodium Chloride Flush 3 ML SYRINGE IVFLUSH ×2 (08:15→19:19)
[2022-07-05] MEDS: Pramipexole Di-HCL 0.125 MG TABLET PO ×2 (08:17→19:25)
[2022-07-05] MEDS: Magnesium Oxide 400 MG TABLET PO ×2 (08:17→19:25)
[2022-07-05 11:02] VITALS: BP 103/59; PULSE 104; O2SAT 94
--- NOTE | 2022-07-05 12:33 | P.CONOP_ITS ---
History of Present Illness HPI Consult date: 07/05/22 Chief complaint: Cellulitis, Sepsis Narrative: 72 yo female admitted to the medical service due to left upper extremity cellulitis . Patient is a poor historian and claims she has had this issue for several weeks but is unsure of the cause. She denies injury. Denies recent illness. She was admitted with abx and ortho was consulted for recommendations. [facility] Past Medical History Medical History Anxiety Asthma-COPD overlap syndrome Depression Diabetes mellitus, type 2 GERD (gastroesophageal reflux disease) Hyponatremia New onset atrial fibrillation Physical deconditioning TIA (transient ischemic attack) Family History Family History Father Cancer Mother No problems noted. Surgical History Surgical History History of section History of shoulder surgery Social History Social History Household Members: Other Housing: Shelter Do you presently have visiting nurse or other home services: No Unable to assess alcohol history related to: Unable to respond Alcohol intake: former Patient Tobacco Use Status: Never used Tobacco Advance Directives Date on File: 12/24/21 service: No Current occupational status: unemployed and retired Meds Allergies Allergy/AdvReac Type Severity Reaction Status Date / Time No Known Allergies Allergy Verified 01/28/22 02:17 [No Known Allergies*] Active Medications: Current Medications Acetaminophen (Acetaminophen 325 Mg Tablet) 650 mg PO Q6H PRN PRN Reason: Pain, Mild (Pain Scale 1-3) Last Admin: 07/04/22 21:20 Dose: 650 mg Albuterol/Ipratropium (Albuterol/Iprat 2.5/0.5mg 3 Ml Ampul.Neb) 3 ml INHALE Q4H PRN PRN Reason: Shortness of Breath/Wheezing Last Admin: 07/04/22 15:25 Dose: 3 ml Aripiprazole (Aripiprazole 2 Mg Tablet) 4 mg PO DAILY [facility] Last Admin: 07/05/22 08:12 Dose: 4 mg Aspirin (Aspirin Enteric Coated 81 Mg Tablet.Dr) 81 mg PO DAILY [facility] Last Admin: 07/05/22 08:13 Dose: 81 mg Atorvastatin Calcium (Atorvastatin Calcium 40 Mg Tablet) 40 mg PO BEDTIME [facility] Last Admin: 07/04/22 19:45 Dose: 40 mg Buspirone HCl (Buspirone Hcl 5 Mg Tablet) 15 mg PO BID [facility] Last Admin: 07/05/22 08:13 Dose: 15 mg Dextrose (Dextrose 50 % 25 Gm/50 Ml Syringe) 25 gm IVPUSH Q15M PRN; Protocol PRN Reason: per Hypoglycemia Standing Ord. Docusate Sodium (Docusate Sodium 100 Mg Capsule) 100 mg PO BID [facility] Last Admin: 07/05/22 08:13 Dose: 100 mg Doxycycline Monohydrate (Doxycycline Monohydrate 100 Mg Capsule) 100 mg PO BID [facility] Stop: 07/06/22 19:38 Last Admin: 07/05/22 08:14 Dose: 100 mg Duloxetine HCl (Duloxetine Hcl 60 Mg Capsule.) 60 mg PO BID [facility] Last Admin: 07/05/22 08:13 Dose: 60 mg Glucose (Glucose Gel 15 Gm Gel..Gram.) 15 gm PO Q15M PRN; Protocol PRN Reason: per Hypoglycemia Standing Ord. Heparin Sodium (Porcine) (Heparin Sodium,Porcine 5,000 Unit/Ml Vial) 5,000 unit SUBCUT Q12H [facility] Last Admin: 07/05/22 05:55 Dose: 5,000 unit Ceftriaxone Sodium 1 gm/ (Sodium Chloride) 50 mls @ 100 mls/hr IV Q24H [facility] Last Infusion: 07/05/22 02:51 Dose: Infused Insulin Human Lispro (Insulin Lispro 100 Unit/Ml 3 Ml Vial) 0 unit SUBCUT QIDACHS [facility]; Protocol Last Admin: 07/05/22 11:18 Dose: Not Given Lorazepam (Lorazepam 0.5 Mg Tablet) 0.5 mg PO Q12H PRN PRN Reason: anxiety Last Admin: 07/04/22 16:09 Dose: 0.5 mg Magnesium Oxide (Magnesium Oxide 400 Mg Tablet) 400 mg PO BID [facility] Last Admin: 07/05/22 08:17 Dose: 400 mg Multivitamins/Vitamin C (Multivitamin Tablet) 1 tab PO DAILY [facility] Last Admin: 07/05/22 08:14 Dose: 1 tab Non-Formulary Medication (Umeclidinium-Vilanterol [Anoro Ellipta]) 1 inhalation INHALE DAILY [facility] Omeprazole (Omeprazole 20 Mg Capsule.Dr) 20 mg PO BID@0630,1630 [facility] Last Admin: 07/05/22 05:55 Dose: 20 mg Ondansetron HCl (Ondansetron Hcl 4 Mg/2 Ml Vial) 4 mg IVPUSH Q8H PRN PRN Reason: Nausea and Vomiting Oxycodone HCl (Oxycodone Hcl Immed Release 5 Mg Tablet) 5 mg PO Q6H PRN PRN Reason: Pain, Severe (Pain Scale 7-10) Last Admin: 07/05/22 11:31 Dose: 5 mg Pharmacy Consult (Consult Rx Perform Med Rec) 1 each MISCELLANE ONCE PRN PRN Reason: Consult order Pramipexole Dihydrochloride (Pramipexole Di-Hcl 0.125 Mg Tablet) 0.125 mg PO BID [facility] Last Admin: 07/05/22 08:17 Dose: 0.125 mg Promethazine HCl (Promethazine Hcl 25 Mg Tablet) 25 mg PO QID PRN PRN Reason: Allergic Symptoms Sodium Chloride (0.9 % Sodium Chloride Flush 3 Ml Syringe) 3 ml IVFLUSH QSHIFT [facility] Last Admin: 07/05/22 08:15 Dose: 3 ml Thiamine HCl (Thiamine Hcl 100 Mg Tablet) 100 mg PO DAILY [facility] Last Admin: 07/05/22 08:13 Dose: 100 mg Vitamin D (Cholecalciferol (Vitamin D3) 25 Mcg Tablet) 125 mcg PO DAILY [facility] Last Admin: 07/05/22 08:12 Dose: 125 mcg Home Medications Medication Instructions Recorded Confirmed Last Taken Type buspirone 15 mg tablet 15 mg PO BID 04/17/20 06/30/22 Unknown History duloxetine 60 mg capsule,delayed 60 mg PO BID 04/17/20 06/30/22 Unknown History release pramipexole 0.125 mg tablet 0.125 mg PO BID 04/26/20 06/30/22 Unknown History acetaminophen 500 mg tablet 1,000 mg PO Q8H PRN Pain 12/21/21 06/30/22 Unknown History albuterol sulfate 90 mcg/actuation 2 puff inhalation Q6H PRN 12/21/21 06/30/22 Unknown History aerosol inhaler shortness of breath or wheezing methyl salicylate 30 %-menthol 10 1 appl topical TID PRN Muscle Pain 12/21/21 06/30/22 Unknown History % topical cream (Icy Hot) pantoprazole 40 mg tablet,delayed 40 mg PO DAILY@0630 12/21/21 06/30/22 Unknown History release thiamine HCl (vitamin B1) 100 mg 100 mg PO DAILY 12/21/21 06/30/22 Unknown History tablet aripiprazole 2 mg tablet 4 mg PO DAILY 03/19/22 06/30/22 Unknown History ferrous sulfate 325 mg (65 mg 1 tab PO DAILY 03/19/22 06/30/22 Unknown History iron) tablet fexofenadine 60 mg tablet 60 mg PO DAILY 03/19/22 06/30/22 Unknown History loperamide 2 mg tablet 2 mg PO Q6H PRN Loose Stool 03/19/22 06/30/22 Unknown History promethazine 25 mg tablet 25 mg PO QID PRN Allergic Symptoms 03/19/22 06/30/22 Unknown History cholecalciferol (vitamin D3) 125 125 mcg PO DAILY 04/05/22 06/30/22 Unknown History mcg (5,000 unit) tablet lorazepam 0.5 mg tablet (Ativan) 1 tab PO Q12H PRN anxiety 04/05/22 06/30/22 Unknown History multivitamin 1 tab PO DAILY 04/05/22 06/30/22 Unknown History diclofenac sodium 1 % topical gel 2 g topical BID 06/30/22 06/30/22 Unknown History magnesium oxide 400 mg PO DAILY 06/30/22 06/30/22 Unknown History naloxone 4 mg/actuation nasal spray 1 spray intranasal Q2M PRN Opioid 06/30/22 06/30/22 Unknown History Overdose omeprazole 20 mg tablet,delayed 20 mg PO BID 06/30/22 06/30/22 Unknown History release sodium phosphates 19 gram-7 118 ml [place] DAILY PRN Constipation 06/30/22 06/30/22 Unknown History gram/118 mL enema (Fleet Enema) Physical Exam Vital Signs: Vital Signs: Last Vital Signs Temp 96.5 F L 07/05/22 07:53 Pulse 104 H 07/05/22 11:02 Resp 14 07/05/22 07:53 BP 103/59 L 07/05/22 11:02 Pulse Ox 94 07/05/22 11:02 O2 Del Method 07/05/22 07:53 BMI result Body Mass Index 24.0 Const: General: cooperative, comfortable, no acute distress, alert and awake Skin: Other: left elbow -appears unchanged. full ROM at elbow, still with swelling, minimal erythema. appears nontender. b/l lower extremities - appears unchanged from previous image. no significant warmth of left leg when compared to right Results Labs 07/04/22 05:09 07/07/22 06:10 Labs: Abnormal lab results 07/04/22 07/05/22 Range/Units 15:37 05:07 POC Glucose 152 H (60-115) mg/dL Magnesium 1.5 L (1.6-2.6) mg/dL H & H 06/29/22 06/30/22 07/01/22 Range/Units 16:12 06:32 07:56 Hgb 7.6 L 6.7 L* 9.1 L D (12.0-16.0) g/dl Hct 22.0 L 19.4 L* 27.1 L D (37.0-47.0) % 07/01/22 07/02/22 07/03/22 Range/Units 10:42 05:03 05:06 Hgb 9.1 L 8.7 L 8.2 L (12.0-16.0) g/dl Hct 26.9 L 25.8 L 24.1 L (37.0-47.0) % 07/04/22 Range/Units 05:09 Hgb 8.4 L (12.0-16.0) g/dl Hct 24.7 L (37.0-47.0) % All other labs normal. Diagnostic results Elbow CT: image reviewed (IMPRESSION: 1. Significant diffuse subcutaneous edema spanning from the distal humerus through the mid forearm. This is greatest at the level of the elbow. Lack of IV contrast limits evaluation for a formed fluid collection, but no gross evidence of collection. 2. No acute osseous abnormality. ) Assessment and Plan (1) Left arm cellulitis: Status: Acute Plan At this time no further orthopedic intervention warranted. There is no evidence of gross fluid collection of CT imaging and on exam there does not appear to be an area of fluctulance, rather dense , firm soft tissue . Continue with medicine recommendations. Will see again if symptoms change. Time Spent With Patient Time: Total time managing care of this patient today ____ minutes. Procedures Date of Service Date of Service: 08/05/22
[2022-07-05] MEDS: Acetaminophen 325 MG TABLET 650 MG PO (14:25)
[2022-07-05] MEDS: LORazepam 0.5 MG TABLET PO (14:25)
--- NOTE | 2022-07-05 14:35 | MHC.CM.PN ---
[facility] REVIEWED. NO BED OFFERS OTHER THAN [facility] WHO IS WILLING TO TAKE PT BACK FOR STR. MARKELL GONZALEZ FROM [facility] HAS APPROVED ADMISSION 07/05-07/09 [facility]IA [facility]. HCP BRAULIO SMILEY IS COMING TO VISIT TODAY AND WILL SPEAK WITH PT ABOUT RETURNING TO THE SN[facility].
[2022-07-05 15:16] VITALS: BP 112/58; PULSE 106; RESP 16; TEMP 37.2; O2SAT 97
--- NOTE | 2022-07-05 15:49 | PM.CNGS ---
History of Present Illness Consult details Consult date: 07/05/22 Requesting physician: Deysi Steve Narrative: The patient is a poor historian, consequently, information is obtained from the staff in the EMR. Patient was admitted with left arm cellulitis and edema of unclear etiology. Orthopedics has evaluated the patient and no clear orthopedic etiology was demonstrate it for the patient's arm edema and cellulitis, consequently, I was asked to help evaluate. Patient denies any pain with active motion. She notes she is right-handed. Review of Systems Review of Systems: Yes Unobtainable due to mental status Constitutional: Constitutional: Reports as per [facility] Past Medical History Medical History Anxiety Asthma-COPD overlap syndrome Depression Diabetes mellitus, type 2 GERD (gastroesophageal reflux disease) Hyponatremia New onset atrial fibrillation Physical deconditioning TIA (transient ischemic attack) Family History Family History Father Cancer Mother No problems noted. Surgical History Surgical History History of section History of shoulder surgery Social History Social History Household Members: Other Housing: [facility] Do you presently have visiting nurse or other home services: No Unable to assess alcohol history related to: Unable to respond Alcohol intake: former Patient Tobacco Use Status: Never used Tobacco Smoked in Last 30 Days: No Use of substances other than those prescribed or required for medical reasons: No Currently Displaying Signs/Symptoms of Drug Intoxication Withdrawal: No Have you been hit, kicked, punched, or otherwise hurt by someone within the past year? If so, by whom?: No Do you feel safe in your current relationship?: No Current Relationship Is there a partner from a previous relationship who is making you feel unsafe now?: No Advance Directives: Yes Advance Directives on File: Yes Advance Directives Date on File: 12/24/21 Do you have thoughts of harming others: None Do you have a plan to hurt others: No Plan Recently lost weight without trying: No Eating poorly because of decreased appetite: No Nutrition Risks: No Nutritional Risk Patient : No service: No Current occupational status: unemployed and retired Meds Allergies Allergy/AdvReac Type Severity Reaction Status Date / Time No Known Allergies Allergy Verified 01/28/22 02:17 [No Known Allergies*] Active Medications: Current Medications Acetaminophen (Acetaminophen 325 Mg Tablet) 650 mg PO Q6H PRN PRN Reason: Pain, Mild (Pain Scale 1-3) Last Admin: 07/05/22 14:25 Dose: 650 mg Albuterol/Ipratropium (Albuterol/Iprat 2.5/0.5mg 3 Ml Ampul.Neb) 3 ml INHALE Q4H PRN PRN Reason: Shortness of Breath/Wheezing Last Admin: 07/04/22 15:25 Dose: 3 ml Aripiprazole (Aripiprazole 2 Mg Tablet) 4 mg PO DAILY [facility] Last Admin: 07/05/22 08:12 Dose: 4 mg Aspirin (Aspirin Enteric Coated 81 Mg Tablet.) 81 mg PO DAILY [facility] Last Admin: 07/05/22 08:13 Dose: 81 mg Atorvastatin Calcium (Atorvastatin Calcium 40 Mg Tablet) 40 mg PO BEDTIME [facility] Last Admin: 07/04/22 19:45 Dose: 40 mg Buspirone HCl (Buspirone Hcl 5 Mg Tablet) 15 mg PO BID [facility] Last Admin: 07/05/22 08:13 Dose: 15 mg Dextrose (Dextrose 50 % 25 Gm/50 Ml Syringe) 25 gm IVPUSH Q15M PRN; Protocol PRN Reason: per Hypoglycemia Standing Ord. Docusate Sodium (Docusate Sodium 100 Mg Capsule) 100 mg PO BID [facility] Last Admin: 07/05/22 08:13 Dose: 100 mg Doxycycline Monohydrate (Doxycycline Monohydrate 100 Mg Capsule) 100 mg PO BID [facility] Stop: 07/06/22 19:38 Last Admin: 07/05/22 08:14 Dose: 100 mg Duloxetine HCl (Duloxetine Hcl 60 Mg Capsule.) 60 mg PO BID [facility] Last Admin: 07/05/22 08:13 Dose: 60 mg Glucose (Glucose Gel 15 Gm Gel..Gram.) 15 gm PO Q15M PRN; Protocol PRN Reason: per Hypoglycemia Standing Ord. Heparin Sodium (Porcine) (Heparin Sodium,Porcine 5,000 Unit/Ml Vial) 5,000 unit SUBCUT Q12H [facility] Last Admin: 07/05/22 05:55 Dose: 5,000 unit Ceftriaxone Sodium 1 gm/ (Sodium Chloride) 50 mls @ 100 mls/hr IV Q24H [facility] Last Infusion: 07/05/22 02:51 Dose: Infused Insulin Human Lispro (Insulin Lispro 100 Unit/Ml 3 Ml Vial) 0 unit SUBCUT QIDACHS [facility]; Protocol Last Admin: 07/05/22 11:18 Dose: Not Given Lorazepam (Lorazepam 0.5 Mg Tablet) 0.5 mg PO Q12H PRN PRN Reason: anxiety Last Admin: 07/05/22 14:25 Dose: 0.5 mg Magnesium Oxide (Magnesium Oxide 400 Mg Tablet) 400 mg PO BID [facility] Last Admin: 07/05/22 08:17 Dose: 400 mg Multivitamins/Vitamin C (Multivitamin Tablet) 1 tab PO DAILY [facility] Last Admin: 07/05/22 08:14 Dose: 1 tab Non-Formulary Medication (Umeclidinium-Vilanterol [Anoro Ellipta]) 1 inhalation INHALE DAILY [facility] Omeprazole (Omeprazole 20 Mg Capsule.Dr) 20 mg PO BID@0630,1630 [facility] Last Admin: 07/05/22 05:55 Dose: 20 mg Ondansetron HCl (Ondansetron Hcl 4 Mg/2 Ml Vial) 4 mg IVPUSH Q8H PRN PRN Reason: Nausea and Vomiting Oxycodone HCl (Oxycodone Hcl Immed Release 5 Mg Tablet) 5 mg PO Q6H PRN PRN Reason: Pain, Severe (Pain Scale 7-10) Last Admin: 07/05/22 11:31 Dose: 5 mg Pharmacy Consult (Consult Rx Perform Med Rec) 1 each MISCELLANE ONCE PRN PRN Reason: Consult order Pramipexole Dihydrochloride (Pramipexole Di-Hcl 0.125 Mg Tablet) 0.125 mg PO BID [facility] Last Admin: 07/05/22 08:17 Dose: 0.125 mg Promethazine HCl (Promethazine Hcl 25 Mg Tablet) 25 mg PO QID PRN PRN Reason: Allergic Symptoms Sodium Chloride (0.9 % Sodium Chloride Flush 3 Ml Syringe) 3 ml IVFLUSH QSHIFT [facility] Last Admin: 07/05/22 08:15 Dose: 3 ml Thiamine HCl (Thiamine Hcl 100 Mg Tablet) 100 mg PO DAILY [facility] Last Admin: 07/05/22 08:13 Dose: 100 mg Vitamin D (Cholecalciferol (Vitamin D3) 25 Mcg Tablet) 125 mcg PO DAILY [facility] Last Admin: 07/05/22 08:12 Dose: 125 mcg Home Medications Medication Instructions Recorded Confirmed Last Taken Type buspirone 15 mg tablet 15 mg PO BID 04/17/20 06/30/22 Unknown History duloxetine 60 mg capsule,delayed 60 mg PO BID 04/17/20 06/30/22 Unknown History release pramipexole 0.125 mg tablet 0.125 mg PO BID 04/26/20 06/30/22 Unknown History acetaminophen 500 mg tablet 1,000 mg PO Q8H PRN Pain 12/21/21 06/30/22 Unknown History albuterol sulfate 90 mcg/actuation 2 puff inhalation Q6H PRN 12/21/21 06/30/22 Unknown History aerosol inhaler shortness of breath or wheezing methyl salicylate 30 %-menthol 10 1 appl topical TID PRN Muscle Pain 12/21/21 06/30/22 Unknown History % topical cream (Icy Hot) pantoprazole 40 mg tablet,delayed 40 mg PO DAILY@0630 12/21/21 06/30/22 Unknown History release thiamine HCl (vitamin B1) 100 mg 100 mg PO DAILY 12/21/21 06/30/22 Unknown History tablet aripiprazole 2 mg tablet 4 mg PO DAILY 03/19/22 06/30/22 Unknown History ferrous sulfate 325 mg (65 mg 1 tab PO DAILY 03/19/22 06/30/22 Unknown History iron) tablet fexofenadine 60 mg tablet 60 mg PO DAILY 03/19/22 06/30/22 Unknown History loperamide 2 mg tablet 2 mg PO Q6H PRN Loose Stool 03/19/22 06/30/22 Unknown History promethazine 25 mg tablet 25 mg PO QID PRN Allergic Symptoms 03/19/22 06/30/22 Unknown History cholecalciferol (vitamin D3) 125 125 mcg PO DAILY 04/05/22 06/30/22 Unknown History mcg (5,000 unit) tablet lorazepam 0.5 mg tablet (Ativan) 1 tab PO Q12H PRN anxiety 04/05/22 06/30/22 Unknown History multivitamin 1 tab PO DAILY 04/05/22 06/30/22 Unknown History diclofenac sodium 1 % topical gel 2 g topical BID 06/30/22 06/30/22 Unknown History magnesium oxide 400 mg PO DAILY 06/30/22 06/30/22 Unknown History naloxone 4 mg/actuation nasal spray 1 spray intranasal Q2M PRN Opioid 06/30/22 06/30/22 Unknown History Overdose omeprazole 20 mg tablet,delayed 20 mg PO BID 06/30/22 06/30/22 Unknown History release sodium phosphates 19 gram-7 118 ml TN DAILY PRN Constipation 06/30/22 06/30/22 Unknown History gram/118 mL enema (Fleet Enema) Physical Exam Vital Signs: Vital Signs: Last Vital Signs Temp 99.0 F 07/05/22 15:16 Pulse 106 H 07/05/22 15:16 Resp 16 07/05/22 15:16 BP 112/58 L 07/05/22 15:16 Pulse Ox 97 07/05/22 15:16 O2 Del Method 07/05/22 15:16 BMI result Body Mass Index 24.0 The patient is a frail elderly woman Dependent edema from the area just distal to the elbow, up to the shoulder is present with cellulitic changes. No discrete palpable collection is noted. There is no pain in the forearm on passive or active motion of the patient's left hand fingers Results Labs Result diagrams: 07/04/22 05:09 07/04/22 05:09 Labs: Abnormal lab results 07/04/22 07/05/22 Range/Units 15:37 05:07 POC Glucose 152 H (60-115) mg/dL Magnesium 1.5 L (1.6-2.6) mg/dL Urine 06/29/22 Range/Units 18:30 Urine Color Yellow Urine Appearance Cloudy Urine pH 6.0 (5.0-9.0) Ur Specific [place] 1.010 (1.005-1.025) Urine Protein Negative (Neg-Trace) mg/dL Urine Glucose (UA) Negative (Negative) mg/dL All other labs normal. Imaging Additional studies: Venous duplex imaging and CT reports are reviewed. Diffuse edema without a specific drainable collection was noted on CT Assessment and Plan (1) Left arm cellulitis: Status: Acute Plan Unclear etiology to the patient's left arm swelling. However, it may be secondary to positioning as an outpatient since the patient presented. There is no evidence of a compartment syndrome on exam, however given the unclear etiology, I would not recommend any circumferential compression wraps given the unclear nature of the edema. Frequent turning of the patient may be beneficial, especially if it is dependent edema. Thank you for asking for my opinion. Please reconsult with additional surgical questions. Time Spent With Patient Time: Total time managing care of this patient today ____ minutes. Procedures Date of Service Date of Service: 07/05/22
--- NOTE | 2022-07-05 16:36 | P.PNIM_ITS ---
Subjective Subjective Date of Service: 07/05/22
--- NOTE | 2022-07-05 16:36 | HO.PM.IMPN ---
Subjective Subjective Date of Service: 07/05/22 Interval History: seen and examined this morning follow up for left arm cellulitis no specific complaints this am, denies fever or chills Review of Systems Review of Systems: Yes all other systems are reviewed and are negative Constitutional Constitutional: Denies chills and Denies fever(s) Cardiovascular Cardiovascular: Denies chest pain, Denies palpitations and Denies dyspnea Respiratory Respiratory: Denies cough and Denies dyspnea Gastrointestinal Gastrointestinal: Denies abdominal pain Endocrine Endocrine: Denies palpitations Physical Exam Vital Signs: Vital Signs: Last Vital Signs Temp 99.0 F 07/05/22 15:16 Pulse 106 H 07/05/22 15:16 Resp 16 07/05/22 15:16 BP 112/58 L 07/05/22 15:16 Pulse Ox 97 07/05/22 15:16 O2 Del Method 07/05/22 15:16 BMI result Body Mass Index 24.0 Const: General: cooperative, comfortable, no acute distress, alert and awake Orientation/consciousness: oriented to person and oriented to place Resp: Effort & Inspection: normal respiratory effort and able to speak in complete sentences Cardio: Rate: regular rate Heart sounds: S1 normal heart sound present and S2 normal heart sound present GI: Inspection: No distended Palpation (GI): Soft to palpation and nontender Skin: Other: left elbow -appears unchanged. full ROM at elbow, still with swelling, minimal erythema. appears nontender. b/l lower extremities - appears unchanged from previous image. no significant warmth of left leg when compared to right Neuro: Other: able to move all four extremities spontaneously slow to respond to questions; no focal neuro deficits appreciated General: oriented to person and oriented to place Extrem: Other: 1+leg edema Objective Data Active Medications Acetaminophen (Acetaminophen 325 Mg Tablet) 650 mg PO Q6H PRN PRN Reason: Pain, Mild (Pain Scale 1-3) Last Admin: 07/05/22 14:25 Dose: 650 mg Documented By: DOE Albuterol/Ipratropium (Albuterol/Iprat 2.5/0.5mg 3 Ml Ampul.Neb) 3 ml INHALE Q4H PRN PRN Reason: Shortness of Breath/Wheezing Last Admin: 07/04/22 15:25 Dose: 3 ml Documented By: LEONIDES Aripiprazole (Aripiprazole 2 Mg Tablet) 4 mg PO DAILY [facility] Last Admin: 07/05/22 08:12 Dose: 4 mg Documented By: DOE Aspirin (Aspirin Enteric Coated 81 Mg Tablet.) 81 mg PO DAILY [facility] Last Admin: 07/05/22 08:13 Dose: 81 mg Documented By: DOE Atorvastatin Calcium (Atorvastatin Calcium 40 Mg Tablet) 40 mg PO BEDTIME [facility] Last Admin: 07/04/22 19:45 Dose: 40 mg Documented By: RAJAT Buspirone HCl (Buspirone Hcl 5 Mg Tablet) 15 mg PO BID [facility] Last Admin: 07/05/22 08:13 Dose: 15 mg Documented By: DOE Dextrose (Dextrose 50 % 25 Gm/50 Ml Syringe) 25 gm IVPUSH Q15M PRN; Protocol PRN Reason: per Hypoglycemia Standing Ord. Docusate Sodium (Docusate Sodium 100 Mg Capsule) 100 mg PO BID [facility] Last Admin: 07/05/22 08:13 Dose: 100 mg Documented By: DOE Doxycycline Monohydrate (Doxycycline Monohydrate 100 Mg Capsule) 100 mg PO BID [facility] Stop: 07/06/22 19:38 Last Admin: 07/05/22 08:14 Dose: 100 mg Documented By: DOE Duloxetine HCl (Duloxetine Hcl 60 Mg Capsule.) 60 mg PO BID [facility] Last Admin: 07/05/22 08:13 Dose: 60 mg Documented By: DOE Glucose (Glucose Gel 15 Gm Gel..Gram.) 15 gm PO Q15M PRN; Protocol PRN Reason: per Hypoglycemia Standing Ord. Heparin Sodium (Porcine) (Heparin Sodium,Porcine 5,000 Unit/Ml Vial) 5,000 unit SUBCUT Q12H [facility] Last Admin: 07/05/22 05:55 Dose: 5,000 unit Documented By: RAJAT Ceftriaxone Sodium 1 gm/ (Sodium Chloride) 50 mls @ 100 mls/hr IV Q24H [facility] Last Infusion: 07/05/22 02:51 Dose: 0 mls/hr Documented By: RAJAT Insulin Human Lispro (Insulin Lispro 100 Unit/Ml 3 Ml Vial) 0 unit SUBCUT QIDACHS [facility]; Protocol Last Admin: 07/05/22 16:01 Dose: Not Given Documented By: VERÓNICA Non-Admin Reason: No Insulin Coverage Lorazepam (Lorazepam 0.5 Mg Tablet) 0.5 mg PO Q12H PRN PRN Reason: anxiety Last Admin: 07/05/22 14:25 Dose: 0.5 mg Documented By: DOE Magnesium Oxide (Magnesium Oxide 400 Mg Tablet) 400 mg PO BID [facility] Last Admin: 07/05/22 08:17 Dose: 400 mg Documented By: DOE Multivitamins/Vitamin C (Multivitamin Tablet) 1 tab PO DAILY [facility] Last Admin: 07/05/22 08:14 Dose: 1 tab Documented By: DOE Non-Formulary Medication (Umeclidinium-Vilanterol [Anoro Ellipta]) 1 inhalation INHALE DAILY [facility] Omeprazole (Omeprazole 20 Mg Capsule.Dr) 20 mg PO BID@0630,1630 [facility] Last Admin: 07/05/22 05:55 Dose: 20 mg Documented By: NAVJOTQC Ondansetron HCl (Ondansetron Hcl 4 Mg/2 Ml Vial) 4 mg IVPUSH Q8H PRN PRN Reason: Nausea and Vomiting Oxycodone HCl (Oxycodone Hcl Immed Release 5 Mg Tablet) 5 mg PO Q6H PRN PRN Reason: Pain, Severe (Pain Scale 7-10) Last Admin: 07/05/22 11:31 Dose: 5 mg Documented By: DOE Pharmacy Consult (Consult Rx Perform Med Rec) 1 each MISCELLANE ONCE PRN PRN Reason: Consult order Pramipexole Dihydrochloride (Pramipexole Di-Hcl 0.125 Mg Tablet) 0.125 mg PO BID [facility] Last Admin: 07/05/22 08:17 Dose: 0.125 mg Documented By: DOE Promethazine HCl (Promethazine Hcl 25 Mg Tablet) 25 mg PO QID PRN PRN Reason: Allergic Symptoms Sodium Chloride (0.9 % Sodium Chloride Flush 3 Ml Syringe) 3 ml IVFLUSH QSHIFT [facility] Last Admin: 07/05/22 08:15 Dose: 3 ml Documented By: DOE Thiamine HCl (Thiamine Hcl 100 Mg Tablet) 100 mg PO DAILY [facility] Last Admin: 07/05/22 08:13 Dose: 100 mg Documented By: DOE Vitamin D (Cholecalciferol (Vitamin D3) 25 Mcg Tablet) 125 mcg PO DAILY [facility] Last Admin: 07/05/22 08:12 Dose: 125 mcg Documented By: DOE Labs CBC & Chem 7: 07/04/22 05:09 07/04/22 05:09 Labs: Laboratory Results - last 24 hr 07/04/22 07/05/22 07/05/22 19:22 05:07 07:57 POC Glucose 105 77 Magnesium 1.5 L 07/05/22 07/05/22 11:06 15:46 POC Glucose 97 96 Magnesium Microbiology Microbiology Results: Microbiology 06/29/22 16:55 Blood Culture - Final Blood - Venous No growth after 5 days. 06/29/22 16:12 Blood Culture - Final Blood - Venous No growth after 5 days. Assessment and Plan (1) Left arm cellulitis: Status: Acute Plan 71-year-old female past medical history of diabetes, hyponatremia, depression anxiety, presents to hospital with complaints of left upper extremity swelling found to have cellulitis Left elbow cellulitis s/p I&D ER. No culture sent CT left arm showing swelling but no discrete fluid collection US neg for DVT, showing 4cm complex fluid collection. seen by ortho - no specific ortho etiology seen by general surgery - no indication for further intervention at this time. continue ceftriaxone/doxycycline(D6) - plan for total 7 days blood cultures negative to date Sepsis- secondary to cellulitis above- resolved Intermittent tachycardia, EKG with NSR rate 100, leukopenia appears chronic. No temp since 07/01 Lactic acid trended down. No end organ damage or hypotension Cough/edema cxr negative, pt on room air no cough today BLE edema with warmth, hyperpigmentation Venous duplex negative for DVT appears unchanged, likely chronic, not infection UA positive/UC negative- no infection - No further treatment indicated Hypomagnesemia Resolved -Continue mag 400mg BID Chronic hyponatremia at baseline Diabetes - low-dose sliding scale insulin - diabetic diet acute on chronic normocytic anemia anemia s/p 2U RBC with improvement in H/H stool occult negative. no active bleeding noted H/H has remained stable outpatient follow up Thrombocytopenia likely r/t sepsis outpatient follow up DVT prophylaxis: Heparin subQ dispo - seen by PT - rec STR, plan to return [facility] , possibly in am attending - dr. de la rosa Will require ongoing hospitalization for IV antibiotics to treat cellulitis Time Spent With Patient Time: Total time managing care of this patient today ____ minutes. Quality Stroke Does the patient have a stroke diagnosis?: No VTE Prior VTE?: No VTE Risk Level:: Medical - moderate - high VTE Device Contraindication: Treatment Not Indicated VTE Drug Contraindication: N/A - Med Ordered
[2022-07-05 19:14] VITALS: BP 117/60; PULSE 105; RESP 18; TEMP 36.4; O2SAT 95
[2022-07-05] MEDS: Atorvastatin Calcium 40 MG TABLET PO (19:28)
[2022-07-05] MEDS: Insulin Lispro 100 UNIT/ML 3 ML VIAL SUBCUT (21:31)
--- NOTE | 2022-07-05 22:46 | PC.NURSE ---
PT El[place] not available pharmacy notified at 2130 medication not here at 2248 and PT does not want to be woken up to take now at 2250, MD Mi notified.
[2022-07-06] MEDS: oxyCODONE HCl Immed Release 5 MG TABLET PO ×3 (01:46→15:59)
[2022-07-06] MEDS: cefTRIAXone sodium 1 GM in 0.9 % Sodium Chloride 50 ML IV (02:14)
[2022-07-06 03:01] VITALS: BP 116/61; PULSE 114; RESP 18; TEMP 37.4; O2SAT 96
[2022-07-06 03:10] VITALS: PULSE 102
[2022-07-06] MEDS: Heparin Sodium,Porcine 5,000 UNIT/ML VIAL 5000 UNIT SUBCUT ×2 (05:44→16:42)
[2022-07-06] MEDS: Omeprazole 20 MG CAPSULE.DR PO ×2 (05:45→16:42)
[2022-07-06 08:00] VITALS: BP 115/67; PULSE 108; RESP 17; TEMP 37.7; O2SAT 95
[2022-07-06] MEDS: 0.9 % Sodium Chloride Flush 3 ML SYRINGE IVFLUSH ×3 (08:57→21:24)
[2022-07-06] MEDS: Docusate Sodium 100 MG CAPSULE PO ×2 (08:57→21:24)
[2022-07-06] MEDS: ARIPiprazole 2 MG TABLET 4 MG PO (08:57)
[2022-07-06] MEDS: Doxycycline Monohydrate 100 MG CAPSULE PO (08:57)
[2022-07-06] MEDS: Pramipexole Di-HCL 0.125 MG TABLET PO ×2 (08:57→21:25)
[2022-07-06] MEDS: DULoxetine HCl 60 MG CAPSULE.DR PO ×2 (08:57→21:24)
[2022-07-06] MEDS: busPIRone HCl 5 MG TABLET 15 MG PO ×2 (08:57→21:26)
[2022-07-06] MEDS: Aspirin Enteric Coated 81 MG TABLET.DR PO (08:57)
[2022-07-06] MEDS: Thiamine HCL 100 MG TABLET PO (08:57)
[2022-07-06] MEDS: Cholecalciferol (Vitamin D3) 25 MCG TABLET 125 MCG PO (08:57)
[2022-07-06] MEDS: Multivitamin TABLET 1 TAB PO (08:58)
[2022-07-06] MEDS: Magnesium Oxide 400 MG TABLET PO ×2 (08:58→21:26)
--- NOTE | 2022-07-06 09:55 | HO.PM.IMPN ---
Subjective Subjective Date of Service: 07/06/22 Interval History: seen and examined this morning follow up for left arm cellulitis c/o hip pain Review of Systems Review of Systems: Yes all other systems are reviewed and are negative Constitutional Constitutional: Denies chills and Denies fever(s) Cardiovascular Cardiovascular: Denies chest pain, Denies palpitations and Denies dyspnea Respiratory Respiratory: Denies cough and Denies dyspnea Gastrointestinal Gastrointestinal: Denies abdominal pain Endocrine Endocrine: Denies palpitations Physical Exam Vital Signs: Vital Signs: Last Vital Signs Temp 99.9 F 07/06/22 08:00 Pulse 108 H 07/06/22 08:00 Resp 17 07/06/22 08:00 BP 115/67 07/06/22 08:00 Pulse Ox 95 07/06/22 08:00 O2 Del Method 07/06/22 08:00 BMI result Body Mass Index 24.0 Appearing in no acute distress lung sounds are clear to auscultation heart regular rate rhythm, clear S1, S2 positive bowel sounds, abdomen is soft, nontender neuro patient is alert x3, no focal deficits Objective Data Active Medications Acetaminophen (Acetaminophen 325 Mg Tablet) 650 mg PO Q6H PRN PRN Reason: Pain, Mild (Pain Scale 1-3) Last Admin: 07/05/22 14:25 Dose: 650 mg Documented By: DOE Albuterol/Ipratropium (Albuterol/Iprat 2.5/0.5mg 3 Ml Ampul.Neb) 3 ml INHALE Q4H PRN PRN Reason: Shortness of Breath/Wheezing Last Admin: 07/04/22 15:25 Dose: 3 ml Documented By: LEONIDES Aripiprazole (Aripiprazole 2 Mg Tablet) 4 mg PO DAILY [facility] Last Admin: 07/06/22 08:57 Dose: 4 mg Documented By: SOPHIE Aspirin (Aspirin Enteric Coated 81 Mg Tablet.Dr) 81 mg PO DAILY [facility] Last Admin: 07/06/22 08:57 Dose: 81 mg Documented By: SOPHIE Atorvastatin Calcium (Atorvastatin Calcium 40 Mg Tablet) 40 mg PO BEDTIME [facility] Last Admin: 07/05/22 19:28 Dose: 40 mg Documented By: MUSA Buspirone HCl (Buspirone Hcl 5 Mg Tablet) 15 mg PO BID [facility] Last Admin: 07/06/22 08:57 Dose: 15 mg Documented By: SOPHIE Dextrose (Dextrose 50 % 25 Gm/50 Ml Syringe) 25 gm IVPUSH Q15M PRN; Protocol PRN Reason: per Hypoglycemia Standing Ord. Docusate Sodium (Docusate Sodium 100 Mg Capsule) 100 mg PO BID [facility] Last Admin: 07/06/22 08:57 Dose: 100 mg Documented By: SOPHIE Doxycycline Monohydrate (Doxycycline Monohydrate 100 Mg Capsule) 100 mg PO BID [facility] Stop: 07/06/22 19:38 Last Admin: 07/06/22 08:57 Dose: 100 mg Documented By: SOPHIE Duloxetine HCl (Duloxetine Hcl 60 Mg Capsule.) 60 mg PO BID [facility] Last Admin: 07/06/22 08:57 Dose: 60 mg Documented By: SOPHEI Glucose (Glucose Gel 15 Gm Gel..Gram.) 15 gm PO Q15M PRN; Protocol PRN Reason: per Hypoglycemia Standing Ord. Heparin Sodium (Porcine) (Heparin Sodium,Porcine 5,000 Unit/Ml Vial) 5,000 unit SUBCUT Q12H [facility] Last Admin: 07/06/22 05:44 Dose: 5,000 unit Documented By: MUSA Ceftriaxone Sodium 1 gm/ (Sodium Chloride) 50 mls @ 100 mls/hr IV Q24H [facility] Last Infusion: 07/06/22 03:00 Dose: 0 mls/hr Documented By: MUSA Insulin Human Lispro (Insulin Lispro 100 Unit/Ml 3 Ml Vial) 0 unit SUBCUT QIDACHS [facility]; Protocol Last Admin: 07/06/22 08:16 Dose: Not Given Documented By: SOPHIE Non-Admin Reason: No Insulin Coverage Magnesium Oxide (Magnesium Oxide 400 Mg Tablet) 400 mg PO BID [facility] Last Admin: 07/06/22 08:58 Dose: 400 mg Documented By: SOPHIE Multivitamins/Vitamin C (Multivitamin Tablet) 1 tab PO DAILY [facility] Last Admin: 07/06/22 08:58 Dose: 1 tab Documented By: SOPHIE Omeprazole (Omeprazole 20 Mg Capsule.) 20 mg PO BID@0630,1630 [facility] Last Admin: 07/06/22 05:45 Dose: 20 mg Documented By: MUSA Ondansetron HCl (Ondansetron Hcl 4 Mg/2 Ml Vial) 4 mg IVPUSH Q8H PRN PRN Reason: Nausea and Vomiting Oxycodone HCl (Oxycodone Hcl Immed Release 5 Mg Tablet) 5 mg PO Q6H PRN PRN Reason: Pain, Severe (Pain Scale 7-10) Last Admin: 07/06/22 08:58 Dose: 5 mg Documented By: SOPHIE Pharmacy Consult (Consult Rx Perform Med Rec) 1 each MISCELLANE ONCE PRN PRN Reason: Consult order Pramipexole Dihydrochloride (Pramipexole Di-Hcl 0.125 Mg Tablet) 0.125 mg PO BID [facility] Last Admin: 07/06/22 08:57 Dose: 0.125 mg Documented By: SOPHIE Promethazine HCl (Promethazine Hcl 25 Mg Tablet) 25 mg PO QID PRN PRN Reason: Allergic Symptoms Sodium Chloride (0.9 % Sodium Chloride Flush 3 Ml Syringe) 3 ml IVFLUSH QSHIFT [facility] Last Admin: 07/06/22 08:57 Dose: 3 ml Documented By: SOPHIE Thiamine HCl (Thiamine Hcl 100 Mg Tablet) 100 mg PO DAILY [facility] Last Admin: 07/06/22 08:57 Dose: 100 mg Documented By: SOPHIE Vitamin D (Cholecalciferol (Vitamin D3) 25 Mcg Tablet) 125 mcg PO DAILY [facility] Last Admin: 07/06/22 08:57 Dose: 125 mcg Documented By: SOPHIE Labs CBC & Chem 7: 07/04/22 05:09 07/04/22 05:09 Labs: Laboratory Results - last 24 hr 07/05/22 07/05/22 07/05/22 11:06 15:46 19:39 POC Glucose 97 96 152 H 07/06/22 07:59 POC Glucose 86 Assessment and Plan (1) Left arm cellulitis: Status: Acute Plan 71-year-old female past medical history of diabetes, hyponatremia, depression anxiety, presents to hospital with complaints of left upper extremity swelling found to have cellulitis Right hip pain obtain xray pain management Left elbow cellulitis s/p I&D in ER. No culture sent CT left arm showing swelling but no discrete fluid collection US neg for DVT, showing 4cm complex fluid collection. seen by ortho - no specific ortho etiology seen by general surgery - no indication for further intervention at this time. continue ceftriaxone/doxycycline(D6) - plan for total 7 days blood cultures negative to date Sepsis- secondary to cellulitis above- resolved Intermittent tachycardia, EKG with NSR rate 100, leukopenia appears chronic. No temp since 07/01 Lactic acid trended down. No end organ damage or hypotension Cough/edema cxr negative, pt on room air no cough today BLE edema with warmth, hyperpigmentation Venous duplex negative for DVT appears unchanged, likely chronic, not infection UA positive/UC negative- no infection No further treatment indicated Hypomagnesemia Resolved Continue mag 400mg BID Chronic hyponatremia at baseline Diabetes ss, ada diet acute on chronic normocytic anemia anemia s/p 2U RBC with improvement in H/H stool occult negative. no active bleeding noted H/H has remained stable outpatient follow up Thrombocytopenia likely r/t sepsis outpatient follow up DVT prophylaxis: Heparin subQ dispo - seen by PT - rec STR, plan to [facility] possibly in am attending - Dr. Perez Will require ongoing hospitalization for IV antibiotics to treat cellulitis Time Spent With Patient Time: Total time managing care of this patient today ____ minutes. Quality Stroke Does the patient have a stroke diagnosis?: No VTE Prior VTE?: No VTE Risk Level:: Medical - moderate - high VTE Device Contraindication: Treatment Not Indicated VTE Drug Contraindication: N/A - Med Ordered
[2022-07-06 15:21] VITALS: BP 121/60; PULSE 102; RESP 17; TEMP 37.1; O2SAT 97
[2022-07-06 19:19] VITALS: BP 112/57; PULSE 107; RESP 17; TEMP 36.7; O2SAT 94
[2022-07-06] MEDS: Atorvastatin Calcium 40 MG TABLET PO (21:24)
[2022-07-06] MEDS: Acetaminophen 325 MG TABLET 650 MG PO (23:38)
[2022-07-07] MEDS: cefTRIAXone sodium 1 GM in 0.9 % Sodium Chloride 50 ML IV (03:32)
[2022-07-07] MEDS: oxyCODONE HCl Immed Release 5 MG TABLET PO ×2 (03:37→16:25)
[2022-07-07 03:53] VITALS: BP 114/59; PULSE 98; RESP 16; TEMP 37.1; O2SAT 95
[2022-07-07] MEDS: Heparin Sodium,Porcine 5,000 UNIT/ML VIAL 5000 UNIT SUBCUT ×2 (05:47→17:24)
[2022-07-07] MEDS: Omeprazole 20 MG CAPSULE.DR PO ×2 (05:48→16:22)
[2022-07-07 07:42] LABS: Anion Gap 7 (12-20); Blood Urea Nitrogen 15 mg/dL (9-16); Calcium 10.9 mg/dL (8.4-10.2); Carbon Dioxide 27 mmol/L (22-29); Chloride 104 mmol/L (96-108); Creatinine Clr Calc Pharmacy 60.9; Estimated Glomerular Filt Rate > 60; Glucose Random 85 mg/dL (60-115); Potassium 4.1 mmol/L (3.3-5.1); Sodium 134 mmol/L (135-145)
[2022-07-07 07:43] LABS: Magnesium 1.6 mg/dL (1.6-2.6)
[2022-07-07 08:00] VITALS: BP 103/53; PULSE 102; RESP 18; TEMP 36.7; O2SAT 93
[2022-07-07] MEDS: ARIPiprazole 2 MG TABLET 4 MG PO (08:35)
[2022-07-07] MEDS: Cholecalciferol (Vitamin D3) 25 MCG TABLET 125 MCG PO (08:35)
[2022-07-07] MEDS: DULoxetine HCl 60 MG CAPSULE.DR PO ×2 (08:35→20:23)
[2022-07-07] MEDS: Docusate Sodium 100 MG CAPSULE PO ×2 (08:36→20:24)
[2022-07-07] MEDS: Thiamine HCL 100 MG TABLET PO (08:36)
[2022-07-07] MEDS: Aspirin Enteric Coated 81 MG TABLET.DR PO (08:36)
[2022-07-07] MEDS: Pramipexole Di-HCL 0.125 MG TABLET PO ×2 (08:37→20:23)
[2022-07-07] MEDS: Multivitamin TABLET 1 TAB PO (08:37)
[2022-07-07] MEDS: Magnesium Oxide 400 MG TABLET PO ×2 (08:37→20:30)
[2022-07-07] MEDS: busPIRone HCl 5 MG TABLET 15 MG PO ×2 (08:42→20:23)
[2022-07-07] MEDS: 0.9 % Sodium Chloride Flush 3 ML SYRINGE IVFLUSH ×3 (08:44→19:41)
--- NOTE | 2022-07-07 11:10 | HO.PM.IMPN ---
Subjective Subjective Date of Service: 07/07/22 Interval History: seen and examined this morning follow up for left arm cellulitis bed is uncomfortable, otherwise no complaints this am Review of Systems Review of Systems: Yes all other systems are reviewed and are negative Constitutional Constitutional: Denies chills and Denies fever(s) Cardiovascular Cardiovascular: Denies chest pain, Denies palpitations and Denies dyspnea Respiratory Respiratory: Denies cough and Denies dyspnea Gastrointestinal Gastrointestinal: Denies abdominal pain Endocrine Endocrine: Denies palpitations Physical Exam Vital Signs: Vital Signs: Last Vital Signs Temp 98.0 F 07/07/22 08:00 Pulse 102 H 07/07/22 08:00 Resp 18 07/07/22 08:00 BP 103/53 L 07/07/22 08:00 Pulse Ox 93 07/07/22 08:00 O2 Del Method 07/07/22 08:00 BMI result Body Mass Index 24.0 Const: General: cooperative, comfortable, no acute distress, alert and awake Orientation/consciousness: oriented to person, oriented to place and oriented to time Resp: Effort & Inspection: normal respiratory effort and able to speak in complete sentences Cardio: Rate: regular rate Heart sounds: S1 normal heart sound present and S2 normal heart sound present GI: Inspection: No distended Palpation (GI): Soft to palpation and nontender Skin: Other: left elbow -appears unchanged. full ROM at elbow, still with swelling, minimal erythema. appears nontender. b/l lower extremities - appears unchanged from previous image. no significant warmth of left leg when compared to right Neuro: Other: able to move all four extremities spontaneously no focal neuro deficits appreciated General: oriented to person, oriented to place and oriented to time Extrem: Other: 1+leg edema Objective Data Active Medications Acetaminophen (Acetaminophen 325 Mg Tablet) 650 mg PO Q6H PRN PRN Reason: Pain, Mild (Pain Scale 1-3) Last Admin: 07/06/22 23:38 Dose: 650 mg Documented By: MUSA Albuterol/Ipratropium (Albuterol/Iprat 2.5/0.5mg 3 Ml Ampul.Neb) 3 ml INHALE Q4H PRN PRN Reason: Shortness of Breath/Wheezing Last Admin: 07/04/22 15:25 Dose: 3 ml Documented By: LEONIDES Aripiprazole (Aripiprazole 2 Mg Tablet) 4 mg PO DAILY [facility] Last Admin: 07/07/22 08:35 Dose: 4 mg Documented By: SOPHIE Aspirin (Aspirin Enteric Coated 81 Mg Tablet.) 81 mg PO DAILY [facility] Last Admin: 07/07/22 08:36 Dose: 81 mg Documented By: SOPHIE Atorvastatin Calcium (Atorvastatin Calcium 40 Mg Tablet) 40 mg PO BEDTIME [facility] Last Admin: 07/06/22 21:24 Dose: 40 mg Documented By: MUSA Buspirone HCl (Buspirone Hcl 5 Mg Tablet) 15 mg PO BID [facility] Last Admin: 07/07/22 08:42 Dose: 15 mg Documented By: SOPHIE Dextrose (Dextrose 50 % 25 Gm/50 Ml Syringe) 25 gm IVPUSH Q15M PRN; Protocol PRN Reason: per Hypoglycemia Standing Ord. Docusate Sodium (Docusate Sodium 100 Mg Capsule) 100 mg PO BID [facility] Last Admin: 07/07/22 08:36 Dose: 100 mg Documented By: SOPHIE Duloxetine HCl (Duloxetine Hcl 60 Mg Capsule.) 60 mg PO BID [facility] Last Admin: 07/07/22 08:35 Dose: 60 mg Documented By: SOPHIE Glucose (Glucose Gel 15 Gm Gel..Gram.) 15 gm PO Q15M PRN; Protocol PRN Reason: per Hypoglycemia Standing Ord. Heparin Sodium (Porcine) (Heparin Sodium,Porcine 5,000 Unit/Ml Vial) 5,000 unit SUBCUT Q12H [facility] Last Admin: 07/07/22 05:47 Dose: 5,000 unit Documented By: MUSA Ceftriaxone Sodium 1 gm/ (Sodium Chloride) 50 mls @ 100 mls/hr IV Q24H [facility] Last Infusion: 07/07/22 04:07 Dose: 0 mls/hr Documented By: MUSA Insulin Human Lispro (Insulin Lispro 100 Unit/Ml 3 Ml Vial) 0 unit SUBCUT QIDACHS [facility]; Protocol Last Admin: 07/07/22 08:11 Dose: Not Given Documented By: SOPHIE Non-Admin Reason: No Insulin Coverage Lorazepam (Lorazepam 0.5 Mg Tablet) 0.5 mg PO Q12H PRN PRN Reason: Anxiety Last Admin: 07/06/22 16:52 Dose: 0.5 mg Documented By: SOPHIE Magnesium Oxide (Magnesium Oxide 400 Mg Tablet) 400 mg PO BID [facility] Last Admin: 07/07/22 08:37 Dose: 400 mg Documented By: SOPHIE Multivitamins/Vitamin C (Multivitamin Tablet) 1 tab PO DAILY [facility] Last Admin: 07/07/22 08:37 Dose: 1 tab Documented By: SOPHIE Omeprazole (Omeprazole 20 Mg Capsule.Dr) 20 mg PO BID@0630,1630 [facility] Last Admin: 07/07/22 05:48 Dose: 20 mg Documented By: MUSA Ondansetron HCl (Ondansetron Hcl 4 Mg/2 Ml Vial) 4 mg IVPUSH Q8H PRN PRN Reason: Nausea and Vomiting Oxycodone HCl (Oxycodone Hcl Immed Release 5 Mg Tablet) 5 mg PO Q6H PRN PRN Reason: Pain, Severe (Pain Scale 7-10) Last Admin: 07/07/22 03:37 Dose: 5 mg Documented By: MUSA Pharmacy Consult (Consult Rx Perform Med Rec) 1 each MISCELLANE ONCE PRN PRN Reason: Consult order Pramipexole Dihydrochloride (Pramipexole Di-Hcl 0.125 Mg Tablet) 0.125 mg PO BID [facility] Last Admin: 07/07/22 08:37 Dose: 0.125 mg Documented By: SOPHIE Promethazine HCl (Promethazine Hcl 25 Mg Tablet) 25 mg PO QID PRN PRN Reason: Allergic Symptoms Sodium Chloride (0.9 % Sodium Chloride Flush 3 Ml Syringe) 3 ml IVFLUSH QSHIFT [facility] Last Admin: 07/07/22 08:44 Dose: 3 ml Documented By: SOPHIE Thiamine HCl (Thiamine Hcl 100 Mg Tablet) 100 mg PO DAILY [facility] Last Admin: 07/07/22 08:36 Dose: 100 mg Documented By: SOPHIE Vitamin D (Cholecalciferol (Vitamin D3) 25 Mcg Tablet) 125 mcg PO DAILY [facility] Last Admin: 07/07/22 08:35 Dose: 125 mcg Documented By: SOPHIE Labs CBC & Chem 7: 07/04/22 05:09 07/07/22 06:10 Labs: Laboratory Results - last 24 hr 07/06/22 07/06/22 07/06/22 11:52 16:19 20:27 Anion Gap Estim Creat Clear Calc Estimated GFR POC Glucose 122 H 95 97 Random Glucose Calcium Magnesium 07/07/22 07/07/22 07/07/22 06:10 06:10 07:58 Anion Gap 7 L Estim Creat Clear Calc 60.9 Estimated GFR > 60 POC Glucose 95 Random Glucose 85 Calcium 10.9 H D Magnesium 1.6 Assessment and Plan (1) Left arm cellulitis: Status: Acute Plan 71-year-old female past medical history of diabetes, hyponatremia, depression anxiety, presents to hospital with complaints of left upper extremity swelling found to have cellulitis Right hip pain xray negative for acute change denies hip pain at this time Left elbow cellulitis s/p I&D ER. No culture sent CT left arm showing swelling but no discrete fluid collection US neg for DVT, showing 4cm complex fluid collection. seen by ortho - no specific ortho etiology seen by general surgery - no indication for further intervention at this time. completed 7 days of ceftriaxone/doxycycline blood cultures negative to date Sepsis- secondary to cellulitis above- resolved Intermittent tachycardia, EKG with NSR rate 100, leukopenia appears chronic. No temp since 07/01 Lactic acid trended down. No end organ damage or hypotension Cough/edema cxr negative, pt on room air no cough today BLE edema with warmth, hyperpigmentation Venous duplex negative for DVT appears unchanged, likely chronic, not infection UA positive/UC negative- no infection - No further treatment indicated Hypomagnesemia Resolved -Continue mag 400mg BID Chronic hyponatremia at baseline Diabetes low-dose sliding scale insulin diabetic diet acute on chronic normocytic anemia anemia s/p 2U RBC with improvement in H/H stool occult negative. no active bleeding noted H/H has remained stable outpatient follow up Thrombocytopenia likely r/t sepsis outpatient follow up DVT prophylaxis: Heparin subQ dispo - seen by PT - rec STR, plan to return [facility] attending - dr. lange Ongoing hospitalization for safe disposition Time Spent With Patient Time: Total time managing care of this patient today ____ minutes. Quality Stroke Does the patient have a stroke diagnosis?: No VTE Prior VTE?: No VTE Risk Level:: Medical - moderate - high VTE Device Contraindication: Treatment Not Indicated VTE Drug Contraindication: N/A - Med Ordered
[2022-07-07 15:26] VITALS: BP 124/70; PULSE 109; RESP 18; TEMP 37.3; O2SAT 98
[2022-07-07] MEDS: Acetaminophen 325 MG TABLET 650 MG PO (17:27)
[2022-07-07 20:00] VITALS: BP 108/53; PULSE 114; RESP 16; TEMP 37.5; O2SAT 93
[2022-07-07] MEDS: Atorvastatin Calcium 40 MG TABLET PO (20:23)
[2022-07-07 23:34] VITALS: PULSE 114; RESP 16; O2SAT 93
[2022-07-08 03:27] VITALS: BP 115/62; PULSE 103; RESP 16; TEMP 36.6; O2SAT 97
[2022-07-08] MEDS: oxyCODONE HCl Immed Release 5 MG TABLET PO ×2 (03:36→11:08)
[2022-07-08] MEDS: Heparin Sodium,Porcine 5,000 UNIT/ML VIAL 5000 UNIT SUBCUT (05:35)
[2022-07-08] MEDS: Omeprazole 20 MG CAPSULE.DR PO (05:35)
[2022-07-08] MEDS: Acetaminophen 325 MG TABLET 650 MG PO (06:35)
[2022-07-08 07:17] VITALS: BP 121/65; PULSE 99; RESP 18; TEMP 37.1; O2SAT 97
[2022-07-08] MEDS: 0.9 % Sodium Chloride Flush 3 ML SYRINGE IVFLUSH (08:15)
[2022-07-08] MEDS: Multivitamin TABLET 1 TAB PO (08:15)
[2022-07-08] MEDS: Pramipexole Di-HCL 0.125 MG TABLET PO (08:15)
[2022-07-08] MEDS: Thiamine HCL 100 MG TABLET PO (08:15)
[2022-07-08] MEDS: DULoxetine HCl 60 MG CAPSULE.DR PO (08:16)
[2022-07-08] MEDS: ARIPiprazole 2 MG TABLET 4 MG PO (08:16)
[2022-07-08] MEDS: Cholecalciferol (Vitamin D3) 25 MCG TABLET 125 MCG PO (08:17)
[2022-07-08] MEDS: Aspirin Enteric Coated 81 MG TABLET.DR PO (08:17)
[2022-07-08] MEDS: busPIRone HCl 5 MG TABLET 15 MG PO (08:17)
[2022-07-08] MEDS: Docusate Sodium 100 MG CAPSULE PO (08:18)
[2022-07-08] MEDS: Magnesium Oxide 400 MG TABLET PO (08:18)
--- NOTE | 2022-07-08 10:36 | HO.PM.IMPN ---
Subjective Subjective Date of Service: 07/08/22 Interval History: seen and examined this morning follow up for left arm cellulitis bed is uncomfortable, otherwise no complaints this am Review of Systems Review of Systems: Yes all other systems are reviewed and are negative Constitutional Constitutional: Denies chills and Denies fever(s) Cardiovascular Cardiovascular: Denies chest pain, Denies palpitations and Denies dyspnea Respiratory Respiratory: Denies cough and Denies dyspnea Gastrointestinal Gastrointestinal: Denies abdominal pain Endocrine Endocrine: Denies palpitations Physical Exam Vital Signs: Vital Signs: Last Vital Signs Temp 98.8 F 07/08/22 07:17 Pulse 99 07/08/22 07:17 Resp 18 07/08/22 07:17 BP 121/65 07/08/22 07:17 Pulse Ox 97 07/08/22 07:17 O2 Del Method 07/08/22 07:17 BMI result Body Mass Index 24.0 Objective Data Active Medications Acetaminophen (Acetaminophen 325 Mg Tablet) 650 mg PO Q6H PRN PRN Reason: Pain, Mild (Pain Scale 1-3) Last Admin: 07/08/22 06:35 Dose: 650 mg Documented By: TODD Albuterol/Ipratropium (Albuterol/Iprat 2.5/0.5mg 3 Ml Ampul.Neb) 3 ml INHALE Q4H PRN PRN Reason: Shortness of Breath/Wheezing Last Admin: 07/07/22 23:33 Dose: 3 ml Documented By: MONIQUE Aripiprazole (Aripiprazole 2 Mg Tablet) 4 mg PO DAILY [facility] Last Admin: 07/08/22 08:16 Dose: 4 mg Documented By: DOE Aspirin (Aspirin Enteric Coated 81 Mg Tablet.Dr) 81 mg PO DAILY [facility] Last Admin: 07/08/22 08:17 Dose: 81 mg Documented By: DOE Atorvastatin Calcium (Atorvastatin Calcium 40 Mg Tablet) 40 mg PO BEDTIME [facility] Last Admin: 07/07/22 20:23 Dose: 40 mg Documented By: TODD Buspirone HCl (Buspirone Hcl 5 Mg Tablet) 15 mg PO BID [facility] Last Admin: 07/08/22 08:17 Dose: 15 mg Documented By: DOE Dextrose (Dextrose 50 % 25 Gm/50 Ml Syringe) 25 gm IVPUSH Q15M PRN; Protocol PRN Reason: per Hypoglycemia Standing Ord. Docusate Sodium (Docusate Sodium 100 Mg Capsule) 100 mg PO BID [facility] Last Admin: 07/08/22 08:18 Dose: 100 mg Documented By: DOE Duloxetine HCl (Duloxetine Hcl 60 Mg Capsule.) 60 mg PO BID [facility] Last Admin: 07/08/22 08:16 Dose: 60 mg Documented By: DOE Glucose (Glucose Gel 15 Gm Gel..Gram.) 15 gm PO Q15M PRN; Protocol PRN Reason: per Hypoglycemia Standing Ord. Heparin Sodium (Porcine) (Heparin Sodium,Porcine 5,000 Unit/Ml Vial) 5,000 unit SUBCUT Q12H [facility] Last Admin: 07/08/22 05:35 Dose: 5,000 unit Documented By: TODD Insulin Human Lispro (Insulin Lispro 100 Unit/Ml 3 Ml Vial) 0 unit SUBCUT QIDACHS [facility]; Protocol Last Admin: 07/08/22 07:33 Dose: Not Given Documented By: DOE Non-Admin Reason: No Insulin Coverage Lorazepam (Lorazepam 0.5 Mg Tablet) 0.5 mg PO Q12H PRN PRN Reason: Anxiety Last Admin: 07/08/22 06:40 Dose: 0.5 mg Documented By: TODD Magnesium Oxide (Magnesium Oxide 400 Mg Tablet) 400 mg PO BID [facility] Last Admin: 07/08/22 08:18 Dose: 400 mg Documented By: DOE Multivitamins/Vitamin C (Multivitamin Tablet) 1 tab PO DAILY [facility] Last Admin: 07/08/22 08:15 Dose: 1 tab Documented By: DOE Omeprazole (Omeprazole 20 Mg Capsule.) 20 mg PO BID@0630,1630 [facility] Last Admin: 07/08/22 05:35 Dose: 20 mg Documented By: TODD Ondansetron HCl (Ondansetron Hcl 4 Mg/2 Ml Vial) 4 mg IVPUSH Q8H PRN PRN Reason: Nausea and Vomiting Oxycodone HCl (Oxycodone Hcl Immed Release 5 Mg Tablet) 5 mg PO Q6H PRN PRN Reason: Pain, Severe (Pain Scale 7-10) Last Admin: 07/08/22 03:36 Dose: 5 mg Documented By: TODD Pharmacy Consult (Consult Rx Perform Med Rec) 1 each MISCELLANE ONCE PRN PRN Reason: Consult order Pramipexole Dihydrochloride (Pramipexole Di-Hcl 0.125 Mg Tablet) 0.125 mg PO BID [facility] Last Admin: 07/08/22 08:15 Dose: 0.125 mg Documented By: DOE Promethazine HCl (Promethazine Hcl 25 Mg Tablet) 25 mg PO QID PRN PRN Reason: Allergic Symptoms Sodium Chloride (0.9 % Sodium Chloride Flush 3 Ml Syringe) 3 ml IVFLUSH QSHIFT [facility] Last Admin: 07/08/22 08:15 Dose: 3 ml Documented By: DOE Thiamine HCl (Thiamine Hcl 100 Mg Tablet) 100 mg PO DAILY [facility] Last Admin: 07/08/22 08:15 Dose: 100 mg Documented By: DOE Vitamin D (Cholecalciferol (Vitamin D3) 25 Mcg Tablet) 125 mcg PO DAILY [facility] Last Admin: 07/08/22 08:17 Dose: 125 mcg Documented By: DOE Labs CBC & Chem 7: 07/04/22 05:09 07/07/22 06:10 Labs: Laboratory Results - last 24 hr 07/07/22 07/07/22 07/07/22 11:03 16:26 20:26 POC Glucose 98 108 109 07/08/22 07:19 POC Glucose 87 Assessment and Plan (1) Left arm cellulitis: Status: Acute Plan 71-year-old female past medical history of diabetes, hyponatremia, depression anxiety, presents to hospital with complaints of left upper extremity swelling found to have cellulitis Right hip pain xray negative for acute change denies hip pain at this time Left elbow cellulitis CT left arm showing swelling but no discrete fluid collection US neg for DVT, showing 4cm complex fluid collection. seen by ortho - no specific ortho etiology seen by general surgery - no indication for further intervention at this time. completed 7 days of ceftriaxone/doxycycline blood cultures negative to date Sepsis- secondary to cellulitis above- resolved Intermittent tachycardia, EKG with NSR rate 100, leukopenia appears chronic. No temp since 07/01 Lactic acid trended down. No end organ damage or hypotension Cough/edema cxr negative, pt on room air no cough today BLE edema with warmth, hyperpigmentation Venous duplex negative for DVT appears unchanged, likely chronic, not infection UA positive/UC negative- no infection No further treatment indicated Hypomagnesemia Resolved Continue mag 400mg BID Chronic hyponatremia at baseline Diabetes low-dose sliding scale insulin diabetic diet acute on chronic normocytic anemia anemia s/p 2U RBC with improvement in H/H stool occult negative. no active bleeding noted H/H has remained stable outpatient follow up Thrombocytopenia likely r/t sepsis outpatient follow up DVT prophylaxis: Heparin subQ dispo - seen by PT - rec STR, plan to return [facility] attending - dr. lange Ongoing hospitalization for safe disposition Time Spent With Patient Time: Total time managing care of this patient today ____ minutes. Quality Stroke Does the patient have a stroke diagnosis?: No VTE Prior VTE?: No VTE Risk Level:: Medical - moderate - high VTE Device Contraindication: Treatment Not Indicated VTE Drug Contraindication: N/A - Med Ordered
--- NOTE | 2022-07-08 11:15 | PM.DS ---
DS: Providers Provider Date of Service: 07/08/22 Date of admission: 06/30/22 05:44 Primary care physician: Unknown Physician Consults: 07/05/22 07:28 Consult to Orthopedics Routine Consulting Provider: Henri Pyle Reason for consultation: left elbow pain/swelling Has provider been notified: No 07/05/22 12:31 Consult to General Surgery Routine Consulting Provider: Dong Ny Reason for consultation: left arm fluid collection Has provider been notified: No Attending physician on discharge: Alonso Maguire Discharging clinician: Juanita Melgar DS: Diagnosis Discharge Diagnosis (1) Left arm cellulitis: Status: Acute DS: Summary Hospital Course Hospital Course: HP as per admitting provider this is a 71 yo F with pmhs of Diabetes, asthma COPD overlap syndrome, anxiety, presents the hospital with complaints of left arm redness, swelling, and tenderness.? Patient reports her symptoms started few days ago, she comes from nursing facility.? Patient denies any fever or chills, no chest pain, no palpitation, no abdominal pain nausea or vomiting, no diarrhea constipation, no urinary symptoms and no lower extremity edema.?On her initial arrival to the ED patient hemodynamically stable with blood pressure of 104/54, she then developed noticeable hypertension, as well as tachycardia.?Patient's labs are significant for WBC count of 3.9, hemoglobin of 7.6,? with a baseline of 8.6, hematocrit 22, ESR 28, sodium of 130, lactic acid of 3.0, magnesium 1.5, CRP of 2.7 and UA positive for leukocyte Estrace and WBC.?Patient started on IV antibiotics and will be admitted for further management . Right hip pain xray negative for acute change Denies any further hip pain Left elbow cellulitis s/p I&D ER. No culture sent CT left arm showing swelling but no discrete fluid collection US neg for DVT, showing 4cm complex fluid collection. seen by ortho - no specific ortho etiology seen by general surgery - no indication for further intervention at this time. completed 7 days of ceftriaxone/doxycycline blood cultures negative to date Sepsis- secondary to cellulitis above- resolved Intermittent tachycardia, EKG with NSR rate 100, leukopenia appears chronic. No temp since 07/01 Lactic acid trended down. No end organ damage or hypotension Cough/edema cxr negative, pt on room air no cough today BLE edema with warmth, hyperpigmentation Venous duplex negative for DVT appears unchanged, likely chronic, not infection UA positive/UC negative- no infection No further treatment indicated Hypomagnesemia Resolved Continue mag 400mg BID Chronic hyponatremia at baseline Diabetes treated with low-dose sliding scale insulin Continue home medications acute on chronic normocytic anemia anemia s/p 2U RBC with improvement in H/H stool occult negative. no active bleeding noted H/H has remained stable outpatient follow up Thrombocytopenia likely r/t sepsis outpatient follow up Time Spent with Patient Time attestation: Total time managing care of this patient today ____ minutes. Discharge coordination time: Greater than 30 minutes Quality: Safe Use of Opioids Does Pt have an Active Cancer Diagnosis on the Problem List?: No Quality: Stroke Does the patient have a stroke diagnosis?: No Physical Exam Vital Signs: Vital Signs: Last Vital Signs Temp 98.8 F 07/08/22 07:17 Pulse 99 07/08/22 07:17 Resp 18 07/08/22 07:17 BP 121/65 07/08/22 07:17 Pulse Ox 97 07/08/22 07:17 O2 Del Method 07/08/22 07:17 BMI result Body Mass Index 24.0 Appearing in no acute distress head is normocephalic atraumatic eyes pupils are PERRLA sclera is anicteric mouth throat mucous membranes are intact and moist neck is supple no lymphadenopathy, no JVD noted lung sounds are clear to auscultation heart regular rate rhythm, clear S1, S2 positive bowel sounds, abdomen is soft, nontender neuro patient is alert x3, no focal deficits Mild redness to Left elbow area DS: Data Data Completed and Pending Labs on day of discharge: Laboratory Results - last 24 hr 07/07/22 07/07/22 07/07/22 11:03 16:26 20:26 POC Glucose 98 108 109 07/08/22 07/08/22 07:19 10:55 POC Glucose 87 98 Discharge Plan Discharge Anticipated Discharge Date/Time: 07/08/22 11:06 Patient Disposition: er [facility] Discharge Diagnosis: Left arm cellulitis Sepsis Discharge Medications: Continued buspirone 15 mg tablet 15 mg PO BID duloxetine 60 mg capsule,delayed release(DR/EC) 60 mg PO BID thiamine HCl (vitamin B1) 100 mg Tablet 100 mg PO DAILY acetaminophen 500 mg Tablet 1,000 mg PO Q8H PRN (Reason: Pain) pantoprazole 40 mg Tablet,Delayed Release (Dr/Ec) 40 mg PO DAILY@0630 Icy Hot 30-10 % Cream 1 appl TOPICAL TID PRN (Reason: Muscle Pain) Rx Instructions: to back albuterol sulfate 90 mcg/actuation HFA aerosol inhaler 2 puff inhalation Q6H PRN (Reason: shortness of breath or wheezing) fexofenadine 60 mg Tablet 60 mg PO DAILY loperamide 2 mg Tablet 2 mg PO Q6H PRN (Reason: Loose Stool) ferrous sulfate 325 mg (65 mg iron) tablet 1 tab PO DAILY promethazine 25 mg Tablet 25 mg PO QID PRN (Reason: Allergic Symptoms) aripiprazole 2 mg Tablet 4 mg PO DAILY docusate sodium 100 mg Capsule 100 mg PO BID 30 Days Qty: 60 0RF lorazepam [Ativan] 0.5 mg tablet 1 tab PO Q12H PRN (Reason: anxiety) multivitamin Tablet 1 tab PO DAILY cholecalciferol (vitamin D3) 125 mcg (5,000 unit) Tablet 125 mcg PO DAILY atorvastatin 40 mg Tablet 40 mg PO BEDTIME 30 Days Qty: 30 0RF aspirin 81 mg Tablet,Delayed Release (Dr/Ec) 81 mg PO DAILY 30 Days Qty: 30 0RF oxycodone 5 mg Tablet 5 mg PO Q6H PRN (Reason: Pain, Severe (Pain Scale 7-10)) Qty: 20 0RF Rx Instructions: Partial Fill upon patient request. Fleet Enema 19-7 gram/118 mL Enema 118 ml MO DAILY PRN (Reason: Constipation) Rx Instructions: use if no BM for 8 hrs after bisacodyl suppository diclofenac sodium 1 % Gel 2 g TOPICAL BID Rx Instructions: apply bilaterally to shoulders omeprazole 20 mg Tablet,Delayed Release (Dr/Ec) 20 mg PO BID naloxone 4 mg/actuation [place],Non-Aerosol 1 spray INTRANASAL Q2M PRN (Reason: Opioid Overdose) Rx Instructions: spray 1 dose into ONE nostril; alternate nostrils w each dose until help arrives magnesium oxide 400 mg magnesium Tablet 400 mg PO DAILY pramipexole 0.125 mg tablet 0.125 mg PO BID Anoro Ellipta 62.5-25 mcg/actuation blister with device 1 inh inhalation DAILY Qty: 60 11RF fluticasone propionate [Flovent HFA] 110 mcg/actuation HFA aerosol inhaler 2 puff inhalation BID 30 Days Qty: 12 11RF Discharge Orders: Discharge Order (Routine); Ordered 07/08/22 Ordered By: Juanita Melgar Diet: Advance to usual diet Activity on Discharge: As tolerated Stand Alone Forms: Patient Portal Discharge page Care Plan Goals: Complete resolution of symptoms Health Concerns: Left arm cellulitis Sepsis Plan of Treatment: Follow up with primary care provider as needed May use warm compresses to left arm for comfort Assessment: See discharge summary
--- NOTE | 2022-07-08 12:35 | MHC.CM.PN ---
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 IMM 07/06 IN CHART
--- NOTE | 2022-07-08 12:43 | MHC.CM.PN ---
T/W UNABLE TO LEAVE VOICEMAIL FOR HCP @ [phone], MAILBOX IS FULL CALL TO [phone] IS WORK NUMBER WITH NO ANSWER. IMM 07/06 IN CHART
== END 2022-07-08 13:36 | DRG 872 ==
LOC: HO.ED 19:32 → HO.EDOVER 06-30 06:06 → HO.S3 06-30 07:58
PROVIDERS: Hospitalist; Physician Assistant; Physician Assistant Medical; Admitting Provider Internal Medicine; Emergency Provider Emergency Medicine; Visit Provider Nurse Practitioner Acute Care
DX: A41.9 Sepsis, unspecified organism (principal); L03.114 Cellulitis of left upper limb; L03.116 Cellulitis of left lower limb; L03.115 Cellulitis of right lower limb; E87.1 Hypo-osmolality and hyponatremia; K21.9 Gastro-esophageal reflux disease without esophagitis; E11.9 Type 2 diabetes mellitus without complications; D69.59 Other secondary thrombocytopenia; D64.9 Anemia, unspecified; M25.551 Pain in right hip; F32.A Depression, unspecified; F41.9 Anxiety disorder, unspecified; E83.42 Hypomagnesemia; Z20.822 Contact with and (suspected) exposure to COVID-19; Z86.73 Personal history of transient ischemic attack (TIA), and cerebral infarction without residual deficits; Z79.82 Long term (current) use of aspirin; Z79.51 Long term (current) use of inhaled steroids; Z79.899 Other long term (current) drug therapy
CPT/HCPCS: 36415; 71045; 73200; 73502; 80048; 80053; 81001; 82272; 82728; 82947; 83605; 83735; 85007; 85025; 85027; 85652; 86140; 86850; 86900; 86901; 86923; 87040; 87086; 87635; 93005; 93970; 93971; 94640; 97110; 97116; 97162; 97530; 99285; J0696; J2270; J3010; J3475; P9016

== ENCOUNTER 2022-08-27 00:50 | Emergency (ER) | payer MEDICARE, MEDICAID, SELFPAY ==
[2022-08-27] VITALS (14 sets, daily range): BP systolic 102–132; BP diastolic 52–70; PULSE 20–101; RESP 14–20; TEMP 36.7–37; O2SAT 96–98; BMI 23.1
--- NOTE | ~2022-08-27 | XR_ITS ---
EXAMINATION: XR CHEST CLINICAL INFORMATION: Anemia COMPARISON: 07/02/2022 TECHNIQUE: Frontal view of the chest was obtained. FINDINGS: Elevated left hemidiaphragm. Cardiac leads overlie the chest. The lungs are well expanded. There is no focal consolidation, edema, or effusion. No pneumothorax. The cardiomediastinal silhouette is within normal limits. No acute osseous abnormality. There is a radiopaque screw associated with the left proximal humerus. This appears to be in the soft tissues. Advanced degenerative changes at the glenohumeral joints. XR/XR chest 1V IMPRESSION: No acute pulmonary disease. Elevated left hemidiaphragm. Radiopaque screw associated with the left proximal humerus. This appears to be in the soft tissues. This is similar to prior.
--- NOTE | 2022-08-27 01:06 | PC.NURSE ---
pt c/o itching all over body and L arm pain
--- NOTE | 2022-08-27 01:17 | ECG_ITS ---
Test Reason : ABNORMAL LABS Blood Pressure : / mmHG Vent. Rate : 093 BPM Atrial Rate : 093 BPM P-R Int : 146 ms QRS Dur : 080 ms QT Int : 352 ms P-R-T Axes : 073 003 029 degrees QTc Int : 437 ms Normal sinus rhythm Normal ECG When compared with ECG of 03-JUL-2022 11:17, No significant change was found Referred By: Benji Resendez Electronically Signed By:Ryan Field
--- NOTE | 2022-08-27 01:20 | ED.GENADULT ---
HPI - General Adult General Chief complaint: Recheck/Abnormal Lab/Rx Stated complaint: abnormal labs Time Seen by Provider: 08/27/22 00:55 Source: patient, EMS, RN notes reviewed and old records reviewed Mode of arrival: EMS Limitations: no limitations History of Present Illness HPI narrative: 72-year-old female given from [facility] for evaluation of anemia, patient had a routine blood workup today found to have hemoglobin of 6.8 and hematocrit of 20.8 which is lower than patient's baseline. According to the patient and group home facility there is no active bleeding losing blood at this point, no nausea or vomiting. Related Data Home Medications Medication Instructions Recorded Confirmed buspirone 15 mg tablet 15 mg PO BID 04/17/20 06/30/22 duloxetine 60 mg capsule,delayed 60 mg PO BID 04/17/20 06/30/22 release pramipexole 0.125 mg tablet 0.125 mg PO BID 04/26/20 06/30/22 acetaminophen 500 mg tablet 1,000 mg PO Q8H PRN Pain 12/21/21 06/30/22 albuterol sulfate 90 mcg/actuation 2 puff inhalation Q6H PRN 12/21/21 06/30/22 aerosol inhaler shortness of breath or wheezing methyl salicylate 30 %-menthol 10 1 appl topical TID PRN Muscle Pain 12/21/21 06/30/22 % topical cream (Icy Hot) pantoprazole 40 mg tablet,delayed 40 mg PO DAILY@0630 12/21/21 06/30/22 release thiamine HCl (vitamin B1) 100 mg 100 mg PO DAILY 12/21/21 06/30/22 tablet aripiprazole 2 mg tablet 4 mg PO DAILY 03/19/22 06/30/22 ferrous sulfate 325 mg (65 mg 1 tab PO DAILY 03/19/22 06/30/22 iron) tablet fexofenadine 60 mg tablet 60 mg PO DAILY 03/19/22 06/30/22 loperamide 2 mg tablet 2 mg PO Q6H PRN Loose Stool 03/19/22 06/30/22 promethazine 25 mg tablet 25 mg PO QID PRN Allergic Symptoms 03/19/22 06/30/22 cholecalciferol (vitamin D3) 125 125 mcg PO DAILY 04/05/22 06/30/22 mcg (5,000 unit) tablet lorazepam 0.5 mg tablet (Ativan) 1 tab PO Q12H PRN anxiety 04/05/22 06/30/22 multivitamin 1 tab PO DAILY 04/05/22 06/30/22 diclofenac sodium 1 % topical gel 2 g topical BID 06/30/22 06/30/22 magnesium oxide 400 mg PO DAILY 06/30/22 06/30/22 naloxone 4 mg/actuation nasal spray 1 spray intranasal Q2M PRN Opioid 06/30/22 06/30/22 Overdose omeprazole 20 mg tablet,delayed 20 mg PO BID 06/30/22 06/30/22 release sodium phosphates 19 gram-7 118 ml [place] DAILY PRN Constipation 06/30/22 06/30/22 gram/118 mL enema (Fleet Enema) Previous Rx's Medication Instructions Recorded docusate sodium 100 mg capsule 100 mg PO BID 30 days #60 caps 03/26/22 aspirin 81 mg tablet,delayed 81 mg PO DAILY 30 days #30 tabs 04/08/22 release atorvastatin 40 mg tablet 40 mg PO BEDTIME 30 days #30 tabs 04/08/22 oxycodone 5 mg tablet 5 mg PO Q6H PRN Pain, Severe (Pain 04/09/22 Scale 7-10) #20 tabs fluticasone propionate 110 2 puff inhalation BID 30 days #12 04/23/22 mcg/actuation HFA aerosol inhaler grams (Flovent HFA) umeclidinium 62.5 mcg-vilanterol 1 inh inhalation DAILY #60 ea 04/23/22 25 mcg/actuation powdr for inhalation (Anoro Ellipta) Allergies Allergy/AdvReac Type Severity Reaction Status Date / Time No Known Allergies Allergy Verified 01/28/22 02:17 [No Known Allergies*] Review of Systems Review of Systems: All other systems are reviewed and are negative Constitutional: Reports as per HPI and Reports no additional constitutional complaints Eyes: Reports as per HPI and Reports no additional eye complaints Reports system reviewed and no additional complaints, except as documented Cardiovascular: Reports as per HPI and Reports no additional cardiovascular complaints Respiratory: Reports as per HPI and Reports no additional respiratory complaints Gastrointestinal: Reports as per HPI and Reports no additional gastrointestinal complaints Genitourinary: Reports no additional female genitourinary complaints Musculoskeletal: Reports no additional musculoskeletal complaints Skin/Breast: Reports system reviewed and no additional complaints, except as docu Psychiatric: Reports no additional psychiatric complaints Endocrine: Reports no additional endocrine complaints Hematologic/Lymphatic: Reports no additional hematologic/lymphatic complaints Allergic/Immunologic: Reports no additional allergic/immunologic complaints Reports system reviewed and no additional complaints, except as documented and Reports Abnormal speech present FOR[facility]LY [facility] Past Medical History Medical History Anxiety Asthma-COPD overlap syndrome Chronic hyponatremia Depression Diabetes mellitus, type 2 GERD (gastroesophageal reflux disease) Hypomagnesemia Hyponatremia Lactic acidosis New onset atrial fibrillation Physical deconditioning TIA (transient ischemic attack) UTI (urinary tract infection) Surgical History History of section History of shoulder surgery Family History Family History Father Cancer Mother No problems noted. Social History Social History Household Members: Other Housing: Intermediate Do you presently have visiting nurse or other home services: No Unable to assess alcohol history related to: Unable to respond Alcohol intake: never Patient Tobacco Use Status: Never used Tobacco Smoked in Last 30 Days: No Use of substances other than those prescribed or required for medical reasons: No Advance Directives: Yes Advance Directives on File: Yes Advance Directives Date on File: 12/24/21 service: No Current occupational status: unemployed and retired Physical Exam ED Vital Signs: Vital Signs - 24 hr 08/27/22 01:17 08/27/22 02:03 08/27/22 02:51 Temperature 98.2 F 98.2 F 98.2 F Pulse Rate 98 80 100 Respiratory Rate 16 17 14 Blood Pressure 116/55 L 109/55 L 102/52 L Pulse Oximetry 98 96 Oxygen Delivery Method Room Air Room Air 08/27/22 03:04 08/27/22 03:09 08/27/22 03:10 Temperature 98.3 F 98.2 F 98.2 F Pulse Rate 98 94 93 Respiratory Rate 18 18 18 Blood Pressure 121/70 114/55 L 114/55 L Pulse Oximetry 98 Oxygen Delivery Method Room Air 08/27/22 04:00 08/27/22 04:46 08/27/22 05:06 Temperature 98.4 F 98.4 F Pulse Rate 91 101 H 20 L Respiratory Rate 17 20 20 Blood Pressure 121/61 120/65 126/56 L Pulse Oximetry 97 Oxygen Delivery Method Room Air 08/27/22 05:24 Temperature 98.3 F Pulse Rate 92 Respiratory Rate 17 Blood Pressure 114/65 Pulse Oximetry Oxygen Delivery Method BMI result Body Mass Index 23.1 vital signs have been reviewed as appeared to be correct. Blood pressure normal. Heart rate normal. Respiration rate normal. Temperature normal. Oxygen saturation normal. Appearance: Alert. Oriented X3. No acute distress. Head: Normal external exam. Normocephalic. Atraumatic. No Garcia signs noted. No raccoon eyes noted Eyes: PERRLA. EOMI. Conjunctiva and sclera normal. Eyelids normal. ENT: TM's Normal. Pharynx normal. Uvula midline. Moist mucous membranes. No trismus noted. No drooling noted. No muffled voice noted. Neck: Normal inspection. Neck supple. FROM. No adenopathy. Thyroid Normal. No meningeal signs. No neck mass noted. CVS: Normal heart rate and rhythm. Heart sound normal. No murmurs noted. Pulses normal throughout. Respiratory: No respiratory distress. Painless inspiration. Breath sounds normal. No wheezes/rales/rhonchi noted. Chest nontender. No accessory muscle usage noted or decreased air movement noted. Abdomen: Soft and nontender. Bowel sounds normal in all 4 quadrants. No distention noted. No organomegaly noted. No visible injury noted. rectal exam: Dark brown stool guaiac negative. Back: No CVA tenderness. Full range of motion noted. Skin: Skin warm and dry. Normal skin color. Normal skin turgor. No rashes/lesions/lacerations noted. Extremities: No lower extremity edema. Extremities exhibit normal range of motion. Extremities nontender. Neuro: Oriented X 3. Cranial nerve exam: II-XII are grossly intact No motor deficit. No sensory deficit. Reflexes normal. Course Course Course Narrative: 72-year-old female with incidental drop of hemoglobin / hematocrit on routine blood workup at the group home, physical exam revealed no active or acute bleeding source. Patient received 2 units of blood transfusion in the emergency department after keeping consent from patient's HCP over the phone. Will recheck CBC and discharged back to the group home. The case signed out to Dr. Jones at 07:00. Medications Administered Discontinued Medications Generic Name Dose Route Start Last Admin Trade Name Shari PRN Reason Stop Dose Admin Pantoprazole Sodium 40 mg 08/27/22 01:17 08/27/22 02:05 Pantoprazole Sodium 40 Mg/10 Ml Vial IVPUSH 08/27/22 01:18 40 mg ONCE ONE Administration Medical Decision Making Differential Diagnosis Differential Diagnoses: The differential diagnosis associated with the presentation includes ( Anemia, CHF, ACS,, GI bleeding.) Lab Data MDM Lab Attestation statement: I reviewed the patient's lab results. 08/27/22 01:32 08/27/22 01:32 Labs: Lab Results 08/27/22 08/27/22 08/27/22 Range/Units 01:32 01:32 01:32 WBC 3.0 L (4.8-10.8) X10*3/uL RBC 1.94 L D (4.20-5.50) X10*6/uL Hgb 6.7 L* D (12.0-16.0) g/dl Hct 19.3 L* D (37.0-47.0) % MCV 99.5 H (80.0-98.0) fL MCH 34.5 H (27.0-33.0) pg MCHC 34.7 (31.0-35.0) g/dl RDW 16.6 H (11.0-16.0) % Plt Count 140 L (160-400) X10*3/uL MPV 9.6 (9.4-12.3) fL Immature Gran % (Auto) 1.4 H (0.0-0.4) % Neut % (Auto) 54.6 (45-73) % Lymph % (Auto) 28.1 (20-40) % [place] % (Auto) 10.2 (2-11) % Eos % (Auto) 5.4 H (0-4) % Baso % (Auto) 0.3 (0-2) % Lymph # (Auto) 0.8 L (1.2-4.9) X10*3/uL [place] # (Auto) 0.3 (0.1-1.2) X10*3/uL Eos # (Auto) 0.2 (0.0-0.4) X10*3/uL Baso # (Auto) 0.0 (0.0-0.2) X10*3/uL Abs Immat Gran (auto) 0.04 H (0.00-0.03) X10*3/uL Absolute Neuts (auto) 1.6 L (2.0-8.3) x10*3/uL Absolute Nucleated RBC 0.000 (0.0-0.012) X10*3/uL Nucleated RBC % (auto) 0.0 (0.0-0.2) /100WBC Smear Tech's Comments VERIFIED Sodium 134 L (135-145) mmol/L Potassium 4.0 (3.3-5.1) mmol/L Chloride 103 (96-108) mmol/L Carbon Dioxide 23 (22-29) mmol/L Anion Gap 12 (12-20) BUN 22 H (9-16) mg/dL Creatinine 0.87 (0.5-1.4) mg/dL Estim Creat Clear Calc 53.0 Estimated GFR > 60 Random Glucose 111 (60-115) mg/dL Calcium 10.1 D (8.4-10.2) mg/dL Total Bilirubin 0.3 (0.0-1.0) mg/dL Direct Bilirubin < 0.2 (0.0-0.5) mg/dL AST 17 (5-31) U/L ALT 18 (0-31) U/L Alkaline Phosphatase 90 (39-117) U/L Troponin I High Sens < 3.5 (<3.5-17.0) ng/L B-Natriuretic Peptide (<100) pg/mL Total Protein 5.2 L (6.5-8.0) g/dL Albumin 2.4 L (3.5-5.0) g/dL Lipase 9 (8-78) U/L Urine Color Urine Appearance Urine pH (5.0-9.0) Ur Specific [place] (1.005-1.025) Urine Protein (Neg-Trace) mg/dL Urine Glucose (UA) (Negative) mg/dL Urine Ketones (Negative) mg/dL Urine Blood (Negative) Urine Nitrite (Negative) Ur Leukocyte Esterase (Negative) Urine RBC (0-2) /HPF Urine WBC (0-5) /HPF Ur Squamous Epith Cells (0-2) /HPF Urine Bacteria (None Seen) Hyaline Casts (0-2) /LPF Stool Occult Blood (NEGATIVE) COVID-19 (RANJIT) (Negative) COVID-19 Clin Com Blood Type Antibody Screen Crossmatch 08/27/22 08/27/22 08/27/22 Range/Units 01:32 01:32 01:32 WBC (4.8-10.8) X10*3/uL RBC (4.20-5.50) X10*6/uL Hgb (12.0-16.0) g/dl Hct (37.0-47.0) % MCV (80.0-98.0) fL MCH (27.0-33.0) pg MCHC (31.0-35.0) g/dl RDW (11.0-16.0) % Plt Count (160-400) X10*3/uL MPV (9.4-12.3) fL Immature Gran % (Auto) (0.0-0.4) % Neut % (Auto) (45-73) % Lymph % (Auto) (20-40) % [place] % (Auto) (2-11) % Eos % (Auto) (0-4) % Baso % (Auto) (0-2) % Lymph # (Auto) (1.2-4.9) X10*3/uL [place] # (Auto) (0.1-1.2) X10*3/uL Eos # (Auto) (0.0-0.4) X10*3/uL Baso # (Auto) (0.0-0.2) X10*3/uL Abs Immat Gran (auto) (0.00-0.03) X10*3/uL Absolute Neuts (auto) (2.0-8.3) x10*3/uL Absolute Nucleated RBC (0.0-0.012) X10*3/uL Nucleated RBC % (auto) (0.0-0.2) /100WBC Smear Tech's Comments Sodium (135-145) mmol/L Potassium (3.3-5.1) mmol/L Chloride (96-108) mmol/L Carbon Dioxide (22-29) mmol/L Anion Gap (12-20) BUN (9-16) mg/dL Creatinine (0.5-1.4) mg/dL Estim Creat Clear Calc Estimated GFR Random Glucose (60-115) mg/dL Calcium (8.4-10.2) mg/dL Total Bilirubin (0.0-1.0) mg/dL Direct Bilirubin (0.0-0.5) mg/dL AST (5-31) U/L ALT (0-31) U/L Alkaline Phosphatase (39-117) U/L Troponin I High Sens (<3.5-17.0) ng/L B-Natriuretic Peptide 39 (<100) pg/mL Total Protein (6.5-8.0) g/dL Albumin (3.5-5.0) g/dL Lipase (8-78) U/L Urine Color Urine Appearance Urine pH (5.0-9.0) Ur Specific [place] (1.005-1.025) Urine Protein (Neg-Trace) mg/dL Urine Glucose (UA) (Negative) mg/dL Urine Ketones (Negative) mg/dL Urine Blood (Negative) Urine Nitrite (Negative) Ur Leukocyte Esterase (Negative) Urine RBC (0-2) /HPF Urine WBC (0-5) /HPF Ur Squamous Epith Cells (0-2) /HPF Urine Bacteria (None Seen) Hyaline Casts (0-2) /LPF Stool Occult Blood NEGATIVE (NEGATIVE) COVID-19 (RANJIT) Negative (Negative) COVID-19 Clin Com See Note Blood Type Antibody Screen Crossmatch 08/27/22 08/27/22 Range/Units 01:44 03:06 WBC (4.8-10.8) X10*3/uL RBC (4.20-5.50) X10*6/uL Hgb (12.0-16.0) g/dl Hct (37.0-47.0) % MCV (80.0-98.0) fL MCH (27.0-33.0) pg MCHC (31.0-35.0) g/dl RDW (11.0-16.0) % Plt Count (160-400) X10*3/uL MPV (9.4-12.3) fL Immature Gran % (Auto) (0.0-0.4) % Neut % (Auto) (45-73) % Lymph % (Auto) (20-40) % [place]an % (Auto) (2-11) % Eos % (Auto) (0-4) % Baso % (Auto) (0-2) % Lymph # (Auto) (1.2-4.9) X10*3/uL [place] # (Auto) (0.1-1.2) X10*3/uL Eos # (Auto) (0.0-0.4) X10*3/uL Baso # (Auto) (0.0-0.2) X10*3/uL Abs Immat Gran (auto) (0.00-0.03) X10*3/uL Absolute Neuts (auto) (2.0-8.3) x10*3/uL Absolute Nucleated RBC (0.0-0.012) X10*3/uL Nucleated RBC % (auto) (0.0-0.2) /100WBC Smear Tech's Comments Sodium (135-145) mmol/L Potassium (3.3-5.1) mmol/L Chloride (96-108) mmol/L Carbon Dioxide (22-29) mmol/L Anion Gap (12-20) BUN (9-16) mg/dL Creatinine (0.5-1.4) mg/dL Estim Creat Clear Calc Estimated GFR Random Glucose (60-115) mg/dL Calcium (8.4-10.2) mg/dL Total Bilirubin (0.0-1.0) mg/dL Direct Bilirubin (0.0-0.5) mg/dL AST (5-31) U/L ALT (0-31) U/L Alkaline Phosphatase (39-117) U/L Troponin I High Sens (<3.5-17.0) ng/L B-Natriuretic Peptide (<100) pg/mL Total Protein (6.5-8.0) g/dL Albumin (3.5-5.0) g/dL Lipase (8-78) U/L Urine Color Yellow Urine Appearance Cloudy Urine pH 7.0 (5.0-9.0) Ur Specific [place] 1.010 (1.005-1.025) Urine Protein Negative (Neg-Trace) mg/dL Urine Glucose (UA) Negative (Negative) mg/dL Urine Ketones Negative (Negative) mg/dL Urine Blood Negative (Negative) Urine Nitrite Negative (Negative) Ur Leukocyte Esterase Trace H (Negative) Urine RBC 0-2 (0-2) /HPF Urine WBC 0-5 (0-5) /HPF Ur Squamous Epith Cells 0-2 (0-2) /HPF Urine Bacteria None Seen (None Seen) Hyaline Casts 0-2 (0-2) /LPF Stool Occult Blood (NEGATIVE) COVID-19 (RANJIT) (Negative) COVID-19 Clin Com Blood Type O Positive Antibody Screen NEGATIVE Crossmatch See Detail Independent Interpretation I performed an independent interpretation of an: Plain X-Ray (No acute pulmonary disease. Elevated left hemidiaphragm. Radiopaque screw associated with the left proximal humerus. This appears to be in the soft tissues. This is similar to prior. ) Radiology Impression Discussion of test interpretation with radiology: I have reviewed the radiologist's reading. Critical Care Time Critical Care Time Critical Care Time: Yes Total Critical Care Time: 60 Attestation: I spent 60 minutes providing critical care service to the patient, this including time spent at the bedside to evaluate the patient, reassess the patient, monitoring vital signs, review labs, and radiographic studies, counseling the patient/family, discussing the case with consultants, disposition the patient. Discharge Plan Discharge Clinical Impression: Anemia Patient Disposition: Still a Patient Instructions: Anemia (ED) Additional Instructions: recheck CBC in 2 days. Prescriptions: No Action buspirone 15 mg tablet 15 mg PO BID duloxetine 60 mg capsule,delayed release(DR/EC) 60 mg PO BID thiamine HCl (vitamin B1) 100 mg Tablet 100 mg PO DAILY acetaminophen 500 mg Tablet 1,000 mg PO Q8H PRN (Reason: Pain) pantoprazole 40 mg Tablet,Delayed Release (Dr/Ec) 40 mg PO DAILY@0630 Icy Hot 30-10 % Cream 1 appl TOPICAL TID PRN (Reason: Muscle Pain) Rx Instructions: to back albuterol sulfate 90 mcg/actuation HFA aerosol inhaler 2 puff inhalation Q6H PRN (Reason: shortness of breath or wheezing) fexofenadine 60 mg Tablet 60 mg PO DAILY loperamide 2 mg Tablet 2 mg PO Q6H PRN (Reason: Loose Stool) ferrous sulfate 325 mg (65 mg iron) tablet 1 tab PO DAILY promethazine 25 mg Tablet 25 mg PO QID PRN (Reason: Allergic Symptoms) aripiprazole 2 mg Tablet 4 mg PO DAILY docusate sodium 100 mg Capsule 100 mg PO BID 30 Days Qty: 60 0RF lorazepam [Ativan] 0.5 mg tablet 1 tab PO Q12H PRN (Reason: anxiety) multivitamin Tablet 1 tab PO DAILY cholecalciferol (vitamin D3) 125 mcg (5,000 unit) Tablet 125 mcg PO DAILY atorvastatin 40 mg Tablet 40 mg PO BEDTIME 30 Days Qty: 30 0RF aspirin 81 mg Tablet,Delayed Release (Dr/Ec) 81 mg PO DAILY 30 Days Qty: 30 0RF oxycodone 5 mg Tablet 5 mg PO Q6H PRN (Reason: Pain, Severe (Pain Scale 7-10)) Qty: 20 0RF Rx Instructions: Partial Fill upon patient request. Fleet Enema 19-7 gram/118 mL Enema 118 ml [place] DAILY PRN (Reason: Constipation) Rx Instructions: use if no BM for 8 hrs after bisacodyl suppository diclofenac sodium 1 % Gel 2 g TOPICAL BID Rx Instructions: apply bilaterally to shoulders omeprazole 20 mg Tablet,Delayed Release (Dr/Ec) 20 mg PO BID naloxone 4 mg/actuation [place],Non-Aerosol 1 spray INTRANASAL Q2M PRN (Reason: Opioid Overdose) Rx Instructions: spray 1 dose into ONE nostril; alternate nostrils w each dose until help arrives magnesium oxide 400 mg magnesium Tablet 400 mg PO DAILY pramipexole 0.125 mg tablet 0.125 mg PO BID Anoro Ellipta 62.5-25 mcg/actuation blister with device 1 inh inhalation DAILY Qty: 60 11RF fluticasone propionate [Flovent HFA] 110 mcg/actuation HFA aerosol inhaler 2 puff inhalation BID 30 Days Qty: 12 11RF
[2022-08-27 01:44] LABS: OBS Int Ctl Valid YES; OBS1 NEGATIVE (NEGATIVE)
[2022-08-27 01:47] LABS: Mean Corpuscular Volume 99.5 fL (80.0-98.0); PLT CLUMP 1; SCAN SMEAR FLAG 1
[2022-08-27 01:48] LABS: Red Cell Distribution Width 16.6 % (11.0-16.0)
[2022-08-27 01:55] LABS: Red Blood Count 1.94 X10*6/uL (4.20-5.50)
[2022-08-27 01:57] LABS: Basophils Percent Auto 0.3 % (0-2); Eosinophils Absolute Auto 0.2 X10*3/uL (0.0-0.4); Eosinophils Percent Auto 5.4 % (0-4); Imm Gran Abs Auto 0.04 X10*3/uL (0.00-0.03); Imm Gran Pct Auto 1.4 % (0.0-0.4); Lymphocytes Absolute Auto 0.8 X10*3/uL (1.2-4.9); Lymphocytes Percent Auto 28.1 % (20-40); MANUAL DIFF FLAG SCAN; Mean Corpuscular HGB Conc 34.7 g/dl (31.0-35.0); Mean Corpuscular Hemoglobin 34.5 pg (27.0-33.0); Mean Platelet Volume 9.6 fL (9.4-12.3); Monocytes Absolute Auto 0.3 X10*3/uL (0.1-1.2); Monocytes Percent Auto 10.2 % (2-11); Neutrophils Absolute Auto 1.6 x10*3/uL (2.0-8.3); Neutrophils Percent Auto 54.6 % (45-73)
[2022-08-27 01:58] LABS: Platelet Count 140 X10*3/uL (160-400)
[2022-08-27 01:59] LABS: Hematocrit 19.3 % (37.0-47.0); Hemoglobin 6.7 g/dl (12.0-16.0)
[2022-08-27 02:03] LABS: B Type Natriuretic Peptide 39 pg/mL (<100)
[2022-08-27] MEDS: Pantoprazole Sodium 40 MG/10 ML VIAL IVPUSH (02:05)
--- NOTE | 2022-08-27 02:06 | PC.NURSE ---
pt sleeping, no apparent distress; will CTM
[2022-08-27 02:07] LABS: COVID-19 Test Negative (Negative); IDNOW Serial# 6674DD1D; SLIDE REVIEW VERIFIED
[2022-08-27 02:11] LABS: Alanine Aminotransferase 18 U/L (0-31); Albumin Level 2.4 g/dL (3.5-5.0); Alkaline Phosphatase 90 U/L (39-117); Anion Gap 12 (12-20); Aspartate Amino Transferase 17 U/L (5-31); Bilirubin Direct < 0.2 mg/dL (0.0-0.5); Bilirubin Total 0.3 mg/dL (0.0-1.0); Blood Urea Nitrogen 22 mg/dL (9-16); Calcium 10.1 mg/dL (8.4-10.2); Carbon Dioxide 23 mmol/L (22-29); Chloride 103 mmol/L (96-108); Estimated Glomerular Filt Rate > 60; Glucose Random 111 mg/dL (60-115); Sodium 134 mmol/L (135-145); Total Protein 5.2 g/dL (6.5-8.0); Troponin-I High Sensitivity < 3.5 ng/L (<3.5-17.0)
[2022-08-27 02:30] LABS: Lipase 9 U/L (8-78)
--- NOTE | 2022-08-27 02:43 | PC.NURSE ---
attempted to call Health Care proxy, Odilia Bardales in r/t blood consent form DR Resendez notified of attempt
--- NOTE | 2022-08-27 02:47 | PC.NURSE ---
Health care proxy (Odilia Laynejulianne) c/b and spoke to Dr Resendez. This nurse also spoke to health care proxy after verifying that health care proxy form on file. Odilia Bardales consented verbally to pt getting blood transfusion.
[2022-08-27 03:32] LABS: Appearance Urine Cloudy; Color Urine Yellow; Glucose Urine UA Negative (Negative); Leukocyte Esterase Urine Trace (Negative); Nitrite Urine Negative (Negative); UMIC TRIGGER UACC YES; Urine Blood Negative (Negative); Urine Ketones Negative (Negative); Urine Protein Negative (Neg-Trace)
[2022-08-27 03:35] LABS: Bacteria Urine None Seen (None Seen); Hyaline Casts Urine 0-2 /LPF (0-2); RBC Urine 0-2 /HPF (0-2); Squamous Epithelial Cell Urine 0-2 /HPF (0-2); WBC Urine 0-5 /HPF (0-5)
--- NOTE | 2022-08-27 04:10 | PC.NURSE ---
Addendum entered by Letty Paredes 08/27/22 06:48: per provider no xray; reviewed previous xray pt has hx of fracture and surg repair Original Note: when rolling pt for bedpan placement, carefully guided pt by upper back and noticed clicking sounds by L shoulder; provider notified xray to follow
--- NOTE | 2022-08-27 06:54 | PC.NURSE ---
pt resting quietly,calm/cooperative, no apparent distress, vs assessed
--- NOTE | 2022-08-27 07:31 | MHC.EDTECH ---
labs collected and sent
[2022-08-27 07:44] LABS: Eosinophils Absolute Auto 0.2 X10*3/uL (0.0-0.4); Eosinophils Percent Auto 6.2 % (0-4); Hematocrit 26.1 % (37.0-47.0); Hemoglobin 8.9 g/dl (12.0-16.0); Imm Gran Abs Auto 0.06 X10*3/uL (0.00-0.03); Imm Gran Pct Auto 1.9 % (0.0-0.4); Lymphocytes Absolute Auto 0.9 X10*3/uL (1.2-4.9); Lymphocytes Percent Auto 26.9 % (20-40); MANUAL DIFF FLAG SCAN; Mean Corpuscular HGB Conc 34.1 g/dl (31.0-35.0); Mean Corpuscular Hemoglobin 32.7 pg (27.0-33.0); Mean Platelet Volume 9.2 fL (9.4-12.3); Monocytes Absolute Auto 0.4 X10*3/uL (0.1-1.2); Monocytes Percent Auto 11.8 % (2-11); Neutrophils Absolute Auto 1.7 x10*3/uL (2.0-8.3); Neutrophils Percent Auto 53.2 % (45-73); Platelet Count 137 X10*3/uL (160-400); Red Blood Count 2.72 X10*6/uL (4.20-5.50); Red Cell Distribution Width 16.1 % (11.0-16.0); SCAN SMEAR FLAG 1; White Blood Count 3.2 X10*3/uL (4.8-10.8)
--- NOTE | 2022-08-27 07:54 | PC.NURSE ---
pt is a/o x 4 no sob/chad noted speaks in full sentences. lungs - monet upper lobes -cta, monet lower lobes - diminished. heart sounds - regular. abd soft and non-tender, bs + x 4 quads. no edema noted. pt aware of plan of care.breakfast ordered.
--- NOTE | 2022-08-27 08:52 | PHA.MEDREC ---
Pharmacy Consult ? Medication Reconciliation Pharmacy has completed the medication reconciliation. Med rec completed using list from [facility].
--- NOTE | 2022-08-27 09:44 | MHC.EDTECH ---
@1034 AARON FROM [facility] CONTACTED VIA TEXT MESSAGE FOR THIS PT TO GO BACK TO [facility] @0900 AARON FROM [facility] HERE BOOKING TRANSPORT FOR THIS PT @0911 TEXT TO AARON FROM [facility] ASKING FOR ETA, STILL WAITING FOR RESPONSE @ THIS TIME
--- NOTE | 2022-08-27 09:51 | MHC.EDTECH ---
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
--- NOTE | 2022-08-27 10:25 | MHC.EDTECH ---
patient daily care performed, patient washed up, michael care done, new purewick placed with new linens. patient resting comfortably in bed awaiting discharge.
--- NOTE | 2022-08-27 10:48 | PC.NURSE ---
rn to rn report given to elvia brower [facility]. pt aware f plan of care for transfer back to [facility].
== END 2022-08-27 10:51 | disposition skilled nursing facility (03) ==
PROVIDERS: Emergency Provider Emergency Medicine
DX: D64.9 Anemia, unspecified (principal); R79.89 Other specified abnormal findings of blood chemistry; R06.02 Shortness of breath; Z20.822 Contact with and (suspected) exposure to COVID-19; Z20.828 Contact with and (suspected) exposure to other viral communicable diseases; Z79.899 Other long term (current) drug therapy
CPT/HCPCS: 36415; 36430; 71045; 80048; 80076; 81001; 82272; 83690; 83880; 84484; 85025; 86850; 86900; 86901; 86923; 87635; 93005; 96374; 99285; P9016

== ENCOUNTER 2023-04-18 07:00 | Outpatient (REF) | payer MEDICARE, MEDICAID, SELFPAY | END 2023-04-18 07:01 | disposition home or self-care (01) | LOC: HO.HOSX 07:00 | PROVIDERS: Visit Provider Physician Assistant | DX: Z13.89 Encounter for screening for other disorder (principal) ==

== ENCOUNTER 2023-05-06 17:26 | Outpatient (REF) | payer MEDICARE, SELFPAY | END 2023-05-06 17:27 | disposition home or self-care (01) | LOC: HO.HOSX 17:26 | PROVIDERS: Visit Provider Physician Assistant | DX: Z13.89 Encounter for screening for other disorder (principal) ==

== ENCOUNTER 2023-07-14 12:13 | Emergency (ER) | payer MEDICARE, MEDICAID, SELFPAY ==
--- NOTE | ~2023-07-14 | US_ITS ---
EXAMINATION: US VENOUS ULTRASOUND WITH DOPPLER LOWER EXTREMITY, RIGHT CLINICAL INFORMATION: Edema, erythema, calf tenderness. COMPARISON: None available. TECHNIQUE: Ultrasound of the deep veins is performed from the hip to the calf with compression sonography and color and pulse Doppler assessment. Spectral analysis with color-flow imaging is performed. FINDINGS: There is normal venous compression and respiratory variation and augmented flow. The visualized common femoral vein, superficial femoral vein, profunda femoral vein, popliteal vein, and the trifurcation region shows no evidence of deep venous thrombosis. There is no significant popliteal fossa cyst. If the patient's symptoms persist, followup ultrasound in 5 days 7 days might be of value to exclude proximal propagation from a non-visualized calf vein. US/US venous duplex LE RT IMPRESSION: No DVT demonstrated in the right lower extremity.
--- NOTE | ~2023-07-14 | XR_ITS ---
EXAMINATION: XR KNEE, RIGHT CLINICAL INFORMATION: Right knee pain and swelling. COMPARISON: None available. TECHNIQUE: Four views of the right knee. FINDINGS: No displaced fracture. Moderate medial and lateral compartment joint space narrowing. Tricompartmental marginal osteophytes. No osseous erosion. Small to moderate joint effusion. Atherosclerotic calcifications. XR/XR knee RT 4V IMPRESSION: Tricompartmental osteoarthritis, most prominent within the medial and lateral compartments. Small to moderate joint effusion.
[2023-07-14 12:26] VITALS: BP 108/52; BP 110/64; PULSE 77; PULSE 81; RESP 16; TEMP 36.7; O2SAT 93; BMI 29.9
--- NOTE | 2023-07-14 12:53 | ED.GENADULT ---
HPI - General Adult General Chief complaint: Extremity Problem Stated complaint: R KNEE PAIN,SMITA FROM SNF PER EMS Time Seen by Provider: 07/14/23 12:24 Source: patient, EMS and RN notes reviewed Mode of arrival: EMS Limitations: physical limitation History of Present Illness HPI narrative: Patient is a 72-year-old female with history of TIA, AFib, asthma COPD, T2 dm, cognitive communication deficit, HF, chronic R knee pain, anemia, MDD, PTSD presenting to the emergency department from [facility] for right knee pain. Patient is unable to provide history due to cognitive limitations, answers only yes to most questions. Staff at facility were concerned regarding new right lower leg redness. MD complaint: RLE erythema Location: right and lower extremity Treatments prior to arrival: none Related Data Home Medications Medication Instructions Recorded Confirmed buspirone 15 mg tablet 15 mg PO BID 04/17/20 08/27/22 duloxetine 60 mg capsule,delayed 60 mg PO BID 04/17/20 08/27/22 release pramipexole 0.125 mg tablet 0.125 mg PO BID 04/26/20 08/27/22 acetaminophen 500 mg tablet 1,000 mg PO Q8H PRN Pain 12/21/21 08/27/22 albuterol sulfate 90 mcg/actuation 2 puff inhalation Q6H PRN 12/21/21 08/27/22 aerosol inhaler shortness of breath or wheezing methyl salicylate 30 %-menthol 10 1 appl topical TID PRN Muscle Pain 12/21/21 08/27/22 % topical cream (Icy Hot) pantoprazole 40 mg tablet,delayed 40 mg PO DAILY@0630 12/21/21 08/27/22 release thiamine HCl (vitamin B1) 100 mg 100 mg PO DAILY 12/21/21 08/27/22 tablet aripiprazole 2 mg tablet 4 mg PO DAILY 03/19/22 08/27/22 ferrous sulfate 325 mg (65 mg 1 tab PO TID 03/19/22 08/27/22 iron) tablet fexofenadine 60 mg tablet 60 mg PO DAILY 03/19/22 08/27/22 loperamide 2 mg tablet 2 mg PO Q6H PRN Loose Stool 03/19/22 08/27/22 promethazine 25 mg tablet 25 mg PO QID PRN Allergic Symptoms 03/19/22 08/27/22 cholecalciferol (vitamin D3) 125 125 mcg PO DAILY 04/05/22 08/27/22 mcg (5,000 unit) tablet lorazepam 0.5 mg tablet (Ativan) 1 tab PO Q12H PRN anxiety 04/05/22 08/27/22 multivitamin 1 tab PO DAILY 04/05/22 08/27/22 diclofenac sodium 1 % topical gel 2 g topical BID 06/30/22 08/27/22 magnesium oxide 400 mg PO DAILY 06/30/22 08/27/22 naloxone 4 mg/actuation nasal spray 1 spray intranasal Q2M PRN Opioid 06/30/22 08/27/22 Overdose omeprazole 20 mg tablet,delayed 20 mg PO BID 06/30/22 08/27/22 release sodium phosphates 19 gram-7 118 ml UT DAILY PRN Constipation 06/30/22 08/27/22 gram/118 mL enema (Fleet Enema) cyanocobalamin (vitamin B-12) 1,000 mcg sublingual DAILY 08/27/22 08/27/22 1,000 mcg sublingual tablet nystatin 100,000 unit/gram topical 1 appl topical BID PRN Rash 08/27/22 08/27/22 cream Previous Rx's Medication Instructions Recorded docusate sodium 100 mg capsule 100 mg PO BID 30 days #60 caps 03/26/22 aspirin 81 mg tablet,delayed 81 mg PO DAILY 30 days #30 tabs 04/08/22 release atorvastatin 40 mg tablet 40 mg PO BEDTIME 30 days #30 tabs 04/08/22 oxycodone 5 mg tablet 5 mg PO Q6H PRN Pain, Severe (Pain 04/09/22 Scale 7-10) #20 tabs fluticasone propionate 110 2 puff inhalation BID 30 days #12 04/23/22 mcg/actuation HFA aerosol inhaler grams (Flovent HFA) umeclidinium 62.5 mcg-vilanterol 1 inh inhalation DAILY #60 ea 04/23/22 25 mcg/actuation powdr for inhalation (Anoro Ellipta) cephalexin 500 mg capsule 500 mg PO QID 7 days #28 caps 07/14/23 Allergies Allergy/AdvReac Type Severity Reaction Status Date / Time No Known Allergies Allergy Verified 07/14/23 12:29 [No Known Allergies*] Review of Systems Review of Systems: As per HPI. Yes all other systems are reviewed and are negative Constitutional: Constitutional: Reports as per HPI [facility] Past Medical History Medical History Anxiety Asthma-COPD overlap syndrome Chronic hyponatremia Depression Diabetes mellitus, type 2 GERD (gastroesophageal reflux disease) Hypomagnesemia Hyponatremia Lactic acidosis New onset atrial fibrillation Physical deconditioning TIA (transient ischemic attack) UTI (urinary tract infection) Surgical History History of section History of shoulder surgery Family History Family History Father Cancer Mother No problems noted. Social History Social History Household Members: Other Housing: Skilled Nursing Do you presently have visiting nurse or other home services: No Unable to assess alcohol history related to: Unable to respond Alcohol intake: never Patient Tobacco Use Status: Never used Tobacco Advance Directives: Yes Advance Directives on File: Yes Advance Directives Date on File: 12/24/21 service: No Current occupational status: unemployed and retired Physical Exam ED Vital Signs: Vital Signs - 24 hr 07/14/23 12:26 Temperature 98.1 F Pulse Rate 81 Respiratory Rate 16 Blood Pressure 108/52 L Pulse Oximetry 93 Oxygen Delivery Method Room Air BMI result Body Mass Index 29.9 Vital signs have been reviewed and appear to be correct. Blood pressure normal. Heart rate normal. Respiratory rate normal. Temperature normal. Oxygen saturation normal. Const General: cooperative and no acute distress Orientation/consciousness: oriented to person, oriented to place, oriented to time and patient oriented x3 Limitations: no limitations [facility] Head: Yes normocephalic and Yes atraumatic Ears: external ears normal General nose exam: Normal external nose present Face and sinus: Yes face symmetric Mouth: oropharynx normal and moist mucous membranes Throat: Yes uvula midline Eyes Pupils: Equal, round and reactive pupils present Neck Neck: Yes normal visual inspection and Yes supple Resp Effort & Inspection: normal respiratory effort and able to speak in complete sentences Auscultation: clear to auscultation bilaterally Cardio Rate: regular rate Rhythm: regular rhythm Heart sounds: S1 normal heart sound present and S2 normal heart sound present GI Palpation (GI): Soft to palpation and nontender Auscultation: normoactive bowel sounds General: Yes no CVA tenderness Back/Spine/Pelvis Back: no CVA tenderness Skin General skin exam: elasticity normal and turgor normal Neuro General: oriented to person, oriented to place, oriented to time, patient oriented x3, moves all extremities, no focal motor deficits and CN's II-XI intact bilaterally Cranial nerves: Yes Equal, round and reactive pupils present Cognition (Neuro): normal cognition Extrem General: Yes full ROM Right lower extremity: edema Details: pitting and 1+, knee Details: swelling Location: of the infrapatellar area, normal ROM and crepitus Location: at the kneww, lower leg Details: erythema Location: of the distal lower leg (circumferential), tenderness Location: of the posterior calf, palpable cord, pitting edema Details: 1+ and warmth Location: of the distal lower leg and foot Details: tenderness and vascular exam Details: dorsalis pedis pulse present (2+) and posterior tibial pulse present (2+) Psych Mental Status: mental status grossly normal Affect: normal affect Thought process: Normal thought process present Medical Decision Making Medical Decision Making [facility] Narrative: Patient is a 72-year-old female with history of TIA, AFib, asthma COPD, T2 dm, cognitive communication deficit, HF, chronic R knee pain, anemia, MDD, PTSD presenting to the emergency department from [facility] for right knee pain. On exam patient is awake, A+Ox3, VS WNL, afebrile, normal neurological exam without focal deficits, physical exam findings as above. Given reported symptoms and physical exam findings, initial differential includes DVT versus cellulitis. Less likely CHF exacerbation. Do not suspect sepsis. Labs notable for chronic leukopenia, chronic anemia, no significant electrolyte abnormalities, normal BMP, negative troponin. X-ray right knee notable for tricompartmental osteoarthritis and small to moderate effusion. Right lower extremity DVT notable for no evidence of DVT. My interpretation is in agreement with the radiologist's interpretation. Will treat for cellulitis with cephalexin, will give first dose here. Feel patient is stable for discharge back to rehab as she is afebrile, normotensive, not tachycardic. Differential Diagnosis Differential Diagnoses: The differential diagnosis associated with the presentation includes As per MDM. Lab Data [facility] Lab Attestation statement: I reviewed the patient's lab results. As per MDM. 07/14/23 12:48 07/14/23 12:48 Labs: Lab Results 07/14/23 Range/Units 12:48 WBC 3.7 L (4.8-10.8) X10*3/uL RBC 2.67 L (4.20-5.50) X10*6/uL Hgb 9.5 L (12.0-16.0) g/dl Hct 27.6 L (37.0-47.0) % MCV 103.4 H (80.0-98.0) fL MCH 35.6 H (27.0-33.0) pg MCHC 34.4 (31.0-35.0) g/dl RDW 13.5 (11.0-16.0) % Plt Count 83 L D (160-400) X10*3/uL MPV 9.6 (9.4-12.3) fL Immature Gran % (Auto) 0.3 (0.0-0.4) % Neut % (Auto) 40.5 L (45-73) % Lymph % (Auto) 37.9 (20-40) % [place] % (Auto) 10.2 (2-11) % Eos % (Auto) 10.8 H (0-4) % Baso % (Auto) 0.3 (0-2) % Lymph # (Auto) 1.4 (1.2-4.9) X10*3/uL [place] # (Auto) 0.4 (0.1-1.2) X10*3/uL Eos # (Auto) 0.4 (0.0-0.4) X10*3/uL Baso # (Auto) 0.0 (0.0-0.2) X10*3/uL Abs Immat Gran (auto) 0.01 (0.00-0.03) X10*3/uL Absolute Neuts (auto) 1.5 L (2.0-8.3) x10*3/uL Absolute Nucleated RBC 0.000 (0.0-0.012) X10*3/uL Nucleated RBC % (auto) 0.0 (0.0-0.2) /100WBC Smear Tech's Comments VERIFIED PT 11.6 (11.1-13.3) SEC INR 1.0 (0.9-1.1) Sodium 141 (135-145) mmol/L Potassium 4.1 (3.3-5.1) mmol/L Chloride 109 H (96-108) mmol/L Carbon Dioxide 24 (22-29) mmol/L Anion Gap 12 (12-20) BUN 14 (9-16) mg/dL Creatinine 0.75 (0.5-1.4) mg/dL Estim Creat Clear Calc 64.4 Estimated GFR > 60 Random Glucose 108 (60-115) mg/dL Calcium 9.5 (8.4-10.2) mg/dL Total Bilirubin 0.5 (0.0-1.0) mg/dL AST 18 (5-31) U/L ALT 21 (0-31) U/L Alkaline Phosphatase 65 (39-117) U/L Troponin I High Sens < 2.7 (<3.5-17.0) ng/L B-Natriuretic Peptide 24 (<100) pg/mL Total Protein 7.1 (6.5-8.0) g/dL Albumin 4.1 (3.5-5.0) g/dL Independent Interpretation I performed an independent interpretation of an: Plain X-Ray and Ultrasound Interpretation: Right knee osteoarthritis, small to moderate effusion No evidence of DVT on ultrasound Radiology Impression Discussion of test interpretation with radiology: I have reviewed the radiologist's reading. Radiologist Impression: XR/XR knee RT 4V IMPRESSION: Tricompartmental osteoarthritis, most prominent within the medial and lateral compartments. Small to moderate joint effusion. US/US venous duplex LE RT IMPRESSION: No DVT demonstrated in the right lower extremity. External Record Review External record reviewed: Inpatient record, Office record and Outpatient record Prescription Management I considered prescription management with: Antibiotic Discharge Plan Discharge Clinical Impression: Cellulitis of right lower leg Patient Disposition: Home, Self-Care Instructions: Cellulitis (DC) Additional Instructions: You have been evaluated in the emergency department today for skin infection, also known as cellulitis. Please take your prescribed antibiotics as directed for the full course of the medication. You can use Tylenol or ibuprofen per package instructions every 6 hours as needed for pain. If necessary, you can alternate these medications so that you can take one medication every 3 hours. For instance, at noon take ibuprofen, then at 3:00 p.m. take Tylenol, then at 6:00 p.m. take ibuprofen. Please schedule an appointment for follow-up with your primary care physician as soon as possible. Return to the emergency department if you experience recurrent vomiting, fevers greater than 100.4? F, increasing area of redness, warmth around the area, foul-smelling discharge from the area, increased tenderness around the area, or any other concerning symptoms. Prescriptions: New cephalexin 500 mg capsule 500 mg PO QID 7 Days Qty: 28 0RF No Action buspirone 15 mg tablet 15 mg PO BID duloxetine 60 mg capsule,delayed release(DR/EC) 60 mg PO BID thiamine HCl (vitamin B1) 100 mg Tablet 100 mg PO DAILY acetaminophen 500 mg Tablet 1,000 mg PO Q8H PRN (Reason: Pain) pantoprazole 40 mg Tablet,Delayed Release (Dr/Ec) 40 mg PO DAILY@0630 Icy Hot 30-10 % Cream 1 appl TOPICAL TID PRN (Reason: Muscle Pain) Rx Instructions: to back albuterol sulfate 90 mcg/actuation HFA aerosol inhaler 2 puff inhalation Q6H PRN (Reason: shortness of breath or wheezing) fexofenadine 60 mg Tablet 60 mg PO DAILY loperamide 2 mg Tablet 2 mg PO Q6H PRN (Reason: Loose Stool) ferrous sulfate 325 mg (65 mg iron) tablet 1 tab PO TID promethazine 25 mg Tablet 25 mg PO QID PRN (Reason: Allergic Symptoms) aripiprazole 2 mg Tablet 4 mg PO DAILY docusate sodium 100 mg Capsule 100 mg PO BID 30 Days Qty: 60 0RF lorazepam [Ativan] 0.5 mg tablet 1 tab PO Q12H PRN (Reason: anxiety) multivitamin Tablet 1 tab PO DAILY cholecalciferol (vitamin D3) 125 mcg (5,000 unit) Tablet 125 mcg PO DAILY atorvastatin 40 mg Tablet 40 mg PO BEDTIME 30 Days Qty: 30 0RF aspirin 81 mg Tablet,Delayed Release (Dr/Ec) 81 mg PO DAILY 30 Days Qty: 30 0RF oxycodone 5 mg Tablet 5 mg PO Q6H PRN (Reason: Pain, Severe (Pain Scale 7-10)) Qty: 20 0RF Rx Instructions: Partial Fill upon patient request. Fleet Enema 19-7 gram/118 mL Enema 118 ml UT DAILY PRN (Reason: Constipation) Rx Instructions: use if no BM for 8 hrs after bisacodyl suppository diclofenac sodium 1 % Gel 2 g TOPICAL BID Protocol: Apply to: Apply to: SHOULDERS Rx Instructions: apply bilaterally to shoulders omeprazole 20 mg Tablet,Delayed Release (Dr/Ec) 20 mg PO BID naloxone 4 mg/actuation [place],Non-Aerosol 1 spray INTRANASAL Q2M PRN (Reason: Opioid Overdose) Rx Instructions: spray 1 dose into ONE nostril; alternate nostrils w each dose until help arrives magnesium oxide 400 mg magnesium Tablet 400 mg PO DAILY nystatin 100,000 unit/gram Cream 1 appl TOPICAL BID PRN (Reason: Rash) cyanocobalamin (vitamin B-12) 1,000 mcg Tablet, Sublingual 1,000 mcg SUBLINGUAL DAILY pramipexole 0.125 mg tablet 0.125 mg PO BID Anoro Ellipta 62.5-25 mcg/actuation blister with device 1 inh inhalation DAILY Qty: 60 11RF fluticasone propionate [Flovent HFA] 110 mcg/actuation HFA aerosol inhaler 2 puff inhalation BID 30 Days Qty: 12 11RF
[2023-07-14 13:07] LABS: Basophils Percent Auto 0.3 % (0-2); Hemoglobin 9.5 g/dl (12.0-16.0); Imm Gran Abs Auto 0.01 X10*3/uL (0.00-0.03); Imm Gran Pct Auto 0.3 % (0.0-0.4); MANUAL DIFF FLAG SCAN; Mean Corpuscular Hemoglobin 35.6 pg (27.0-33.0); Monocytes Absolute Auto 0.4 X10*3/uL (0.1-1.2); PLT CLUMP 1; Red Blood Count 2.67 X10*6/uL (4.20-5.50); Red Cell Distribution Width 13.5 % (11.0-16.0); SCAN SMEAR FLAG 1
[2023-07-14 13:09] LABS: Eosinophils Absolute Auto 0.4 X10*3/uL (0.0-0.4); Eosinophils Percent Auto 10.8 % (0-4); Hematocrit 27.6 % (37.0-47.0); Lymphocytes Absolute Auto 1.4 X10*3/uL (1.2-4.9); Lymphocytes Percent Auto 37.9 % (20-40); Mean Corpuscular HGB Conc 34.4 g/dl (31.0-35.0); Mean Corpuscular Volume 103.4 fL (80.0-98.0); Mean Platelet Volume 9.6 fL (9.4-12.3); Monocytes Percent Auto 10.2 % (2-11); Neutrophils Absolute Auto 1.5 x10*3/uL (2.0-8.3); Neutrophils Percent Auto 40.5 % (45-73); Platelet Count 83 X10*3/uL (160-400); White Blood Count 3.7 X10*3/uL (4.8-10.8)
[2023-07-14 13:14] LABS: Prothrombin Time 11.6 SEC (11.1-13.3)
[2023-07-14 13:18] LABS: Alanine Aminotransferase 21 U/L (0-31); Albumin Level 4.1 g/dL (3.5-5.0); Alkaline Phosphatase 65 U/L (39-117); Anion Gap 12 (12-20); Aspartate Amino Transferase 18 U/L (5-31); Bilirubin Total 0.5 mg/dL (0.0-1.0); Blood Urea Nitrogen 14 mg/dL (9-16); Calcium 9.5 mg/dL (8.4-10.2); Carbon Dioxide 24 mmol/L (22-29); Chloride 109 mmol/L (96-108); Creatinine Clr Calc Pharmacy 64.4; Estimated Glomerular Filt Rate > 60; Glucose Random 108 mg/dL (60-115); Potassium 4.1 mmol/L (3.3-5.1); Sodium 141 mmol/L (135-145); Total Protein 7.1 g/dL (6.5-8.0)
[2023-07-14 13:22] LABS: B Type Natriuretic Peptide 24 pg/mL (<100)
[2023-07-14 13:26] LABS: Troponin-I High Sensitivity < 2.7 ng/L (<3.5-17.0)
[2023-07-14 13:30] LABS: SLIDE REVIEW VERIFIED
[2023-07-14] MEDS: cephALEXin 500 MG CAPSULE PO (15:34)
[2023-07-14 15:45] VITALS: BP 110/56; PULSE 80; RESP 20; TEMP 36.8; O2SAT 97
[2023-07-14 16:03] VITALS: BP 110/56; PULSE 80; RESP 18; TEMP 36.8; O2SAT 97
== END 2023-07-14 17:45 | disposition home or self-care (01) ==
PROVIDERS: Registered Nurse Emergency; Emergency Provider Emergency Medicine; PCP Internal Medicine
DX: L03.115 Cellulitis of right lower limb (principal); M79.661 Pain in right lower leg; R60.0 Localized edema; E11.9 Type 2 diabetes mellitus without complications; I50.9 Heart failure, unspecified; I48.91 Unspecified atrial fibrillation; J44.9 Chronic obstructive pulmonary disease, unspecified; Z86.73 Personal history of transient ischemic attack (TIA), and cerebral infarction without residual deficits; Z79.899 Other long term (current) drug therapy; Z79.02 Long term (current) use of antithrombotics/antiplatelets; Z79.82 Long term (current) use of aspirin
CPT/HCPCS: 36415; 73564; 80053; 83880; 84484; 85025; 85610; 93971; 99283; 99284

== ENCOUNTER 2023-08-01 09:14 | Outpatient (REF) | payer MEDICARE, MEDICAID, SELFPAY ==
--- NOTE | ~2023-08-01 | XR_ITS ---
EXAMINATION: XR SHOULDER, RIGHT CLINICAL INFORMATION: Right shoulder pain COMPARISON: None available. TECHNIQUE: AP external rotation, Grashey, scapular Y, and axillary views of the right shoulder. FINDINGS: No fracture or dislocation. Humeral spurring. Degenerative changes thoracic spine. Visualized lungs are clear. XR/XR shoulder RT min 2V IMPRESSION: No acute bony pathology.
== END 2023-08-01 09:15 | disposition home or self-care (01) ==
LOC: HO.HOSX 09:14
PROVIDERS: Visit Provider Physician Assistant
DX: M19.011 Primary osteoarthritis, right shoulder (principal); M19.012 Primary osteoarthritis, left shoulder
CPT/HCPCS: 20610; 73030; 99212; J1020

== ENCOUNTER 2023-08-01 09:27 | Outpatient (AMB) | payer MEDICARE, MEDICAID, SELFPAY ==
--- NOTE | 2023-08-01 09:34 | MHC.OFFVIS ---
Intake Vital Signs 08/01/23 09:41 Height 5 ft 3 in Weight 168 lb BMI 29.8 Intake Visit Reasons: newprob-Right shoulder pain-interested injection? Intake Note: Aracelis a 73 year old female presents today for an evaluation of right shoulder recio. Patient reports bilateral shoulder pain for a couple of years, She has injections in the past that provide her relief with the last one being about 2 years ago. She is requesting to repeat injection. pain radiates down her arm, [id number] ROM Allergies No Known Allergies [No Known Allergies*] Allergy (Verified 08/01/23 09:40) HPI newprob-Right shoulder pain-interested injection? HPI Details 73-year-old female who presents to the office today for evaluation of bilateral shoulder pain for about 2 years. She currently states she has pain and limited ROM in her shoulders which radiates down to her arm. She also c/o popping sensation in her shoulders. She takes Percocet 1 tablet for her pain without benefits. She has not had any physical therapy in the past. She had bilateral shoulder injections about 2 years ago which provided her relief. She is interested in repeating the injection. She does not have a history of diabetes. [facility] Medical History Anxiety Asthma-COPD overlap syndrome Chronic hyponatremia Depression Diabetes mellitus, type 2 GERD (gastroesophageal reflux disease) Hypomagnesemia Hyponatremia Lactic acidosis New onset atrial fibrillation Physical deconditioning TIA (transient ischemic attack) UTI (urinary tract infection) Surgical History History of shoulder surgery History of section Family History Father Cancer Mother No problems noted. Social History (Updated 08/01/23 @ 09:41 by CAREY Watkins) Household Members: Other Housing: [facility] Do you presently have visiting nurse or other home services: No Unable to assess alcohol history related to: Unable to respond Alcohol intake: never Patient Tobacco Use Status: Never used Tobacco Advance Directives Date on File: 12/24/21 service: No Current occupational status: unemployed and retired Current occupation: right hand dominant Review of Systems Const All systems reviewed & are unremarkable except as noted in HPI and below Physical Exam Vital Signs: BMI result Body Mass Index 29.8 Extrem Other: Bilateral shoulder normal to inspection. Tenderness over the bicipital groove and along the deltoid region of the shoulder. Forward flexion to 175, external rotation to 90, internal rotation to S1. 5/5 RTC strength. Negative Chauhan and cross body abduction. NVI. Office Procedures Joint Injection/Drain Joint Injection/Drain Primary Site: right shoulder Secondary Site: left shoulder Prep: site was prepped using aseptic technique, ethochloride spray was applied and injection warnings given Injected: 40 mg of, DepoMedrol, with 8 mL of, 1% plain lidocaine and in the subcromial space Approach Used: posterolateral Procedure: The patient tolerated the procedure well and there was some relief with the local anesthesia Coding - Glenohumeral/Tronchanteric Bursa/Intraarticular Procedure code (CPT) selection complete Results Reviewed Results Reviewed: Xrays were obtained in the office today and personally reviewed by me of the right shoulder show [facility] Assessment & Plan Assessment & Plan (1) Osteoarthritis of shoulders, bilateral: Code(s): M19.011 - Primary osteoarthritis, right shoulder; M19.012 - Primary osteoarthritis, left shoulder Qualifiers: Osteoarthritis type: primary Qualified Code(s): M19.011 - Primary osteoarthritis, right shoulder; M19.012 - Primary osteoarthritis, left shoulder Plan We discussed options today which include steroid injection. They did consent to move forward with the bilateral shoulder injection, which was tolerated well. I recommended rest, ice and elevation and OTC anti-inflammatories PRN for discomfort. If symptoms persist or worsens over the next 6-8 weeks, patient will contact the office, otherwise follow-up as needed. Orders: Orders XR shoulder RT min 2V Today M25.511 - Pain in right shoulder Patient Instructions: Scribed for Henri Pyle PA-C, by Isiah Bui medical staff director, on 08/01/2023 at 9:30 AM MOIRA. Henri Becerra PA-C, have personally reviewed and agree with the information entered by the scribe. Coding Level of Care Code Est Pt Level 3 (01367) Diagnoses Primary osteoarthritis of both shoulders M19.011; M19.012 Osteoarthritis type: primary CPT Codes Coding - Joint 7: 03799 - Glenohumeral/Tronchanteric Bursa/Intraarticular ([id number])
[2023-08-01 09:41] VITALS: BMI 29.8
== END 2023-08-01 10:31 | disposition home or self-care (01) ==
PROVIDERS: Visit Provider Physician Assistant
DX: M19.011 Primary osteoarthritis, right shoulder (principal); M19.012 Primary osteoarthritis, left shoulder
CPT/HCPCS: 20610; 99213

== ENCOUNTER 2023-10-01 15:02 | Emergency (ER) | payer MEDICARE, MEDICAID, SELFPAY ==
--- NOTE | ~2023-10-01 | XR_ITS ---
EXAMINATION: XR CHEST CLINICAL INFORMATION: Reason for Exam diff breathing COMPARISON: Chest radiograph 08/27/2022, CT angiogram chest 12/23/2021 TECHNIQUE: One view of the chest FINDINGS: Lines and tubes: EKG leads overlie the patient. Clear lungs. Possible new trace right pleural effusion which could be confirmed with lateral radiographs. No pneumothorax. Unchanged cardiomediastinal silhouette. XR/XR chest 1V IMPRESSION: 1. Clear lungs. 2. Possible new trace right pleural effusion which could be confirmed with lateral radiographs. 3. Unchanged cardiomediastinal silhouette.
[2023-10-01 15:18] VITALS: BP 113/68; PULSE 100; RESP 14; TEMP 37.2; O2SAT 96; BMI 35.0
[2023-10-01 15:24] VITALS: BP 122/76; O2SAT 95
[2023-10-01 15:54] LABS: MANUAL DIFF FLAG NO
[2023-10-01 15:58] LABS: Basophils Percent Auto 0.2 % (0-2); Eosinophils Absolute Auto 0.3 X10*3/uL (0.0-0.4); Eosinophils Percent Auto 4.4 % (0-4); Hematocrit 31.6 % (37.0-47.0); Hemoglobin 10.6 g/dl (12.0-16.0); Imm Gran Abs Auto 0.11 X10*3/uL (0.00-0.03); Imm Gran Pct Auto 1.9 % (0.0-0.4); Lymphocytes Absolute Auto 1.5 X10*3/uL (1.2-4.9); Lymphocytes Percent Auto 26.1 % (20-40); Mean Corpuscular HGB Conc 33.5 g/dl (31.0-35.0); Mean Corpuscular Hemoglobin 35.3 pg (27.0-33.0); Mean Corpuscular Volume 105.3 fL (80.0-98.0); Monocytes Absolute Auto 0.6 X10*3/uL (0.1-1.2); Monocytes Percent Auto 10.1 % (2-11); Neutrophils Absolute Auto 3.4 x10*3/uL (2.0-8.3); Neutrophils Percent Auto 57.3 % (45-73); Red Cell Distribution Width 13.8 % (11.0-16.0); White Blood Count 5.9 X10*3/uL (4.8-10.8)
[2023-10-01 15:59] LABS: Platelet Count 73 X10*3/uL (160-400)
--- NOTE | 2023-10-01 16:07 | ED_ITS ---
HPI - SOB/Dyspnea General Chief Complaint: Dyspnea Stated Complaint: sob Time Seen by Provider: 10/01/23 15:16 Source: patient and EMS Mode of arrival: EMS Limitations: no limitations History of Present Illness HPI Narrative: Patient comes to the emergency room from [facility] complaining of shortness of breath. Patient states that over the last 2 days she has been feeling more short of breath than usual. Patient states that they have been giving her nebulization treatments with little relief. Patient denies fever or chills. Related Data Home Medications Medication Instructions Recorded Confirmed buspirone 15 mg tablet 15 mg PO BID 04/17/20 08/27/22 duloxetine 60 mg capsule,delayed 60 mg PO BID 04/17/20 08/27/22 release pramipexole 0.125 mg tablet 0.125 mg PO BID 04/26/20 08/27/22 acetaminophen 500 mg tablet 1,000 mg PO Q8H PRN Pain 12/21/21 08/27/22 albuterol sulfate 90 mcg/actuation 2 puff inhalation Q6H PRN 12/21/21 08/27/22 aerosol inhaler shortness of breath or wheezing methyl salicylate 30 %-menthol 10 1 appl topical TID PRN Muscle Pain 12/21/21 08/27/22 % topical cream (Icy Hot) pantoprazole 40 mg tablet,delayed 40 mg PO DAILY@0630 12/21/21 08/27/22 release thiamine HCl (vitamin B1) 100 mg 100 mg PO DAILY 12/21/21 08/27/22 tablet aripiprazole 2 mg tablet 4 mg PO DAILY 03/19/22 08/27/22 ferrous sulfate 325 mg (65 mg 1 tab PO TID 03/19/22 08/27/22 iron) tablet fexofenadine 60 mg tablet 60 mg PO DAILY 03/19/22 08/27/22 loperamide 2 mg tablet 2 mg PO Q6H PRN Loose Stool 03/19/22 08/27/22 promethazine 25 mg tablet 25 mg PO QID PRN Allergic Symptoms 03/19/22 08/27/22 cholecalciferol (vitamin D3) 125 125 mcg PO DAILY 04/05/22 08/27/22 mcg (5,000 unit) tablet lorazepam 0.5 mg tablet (Ativan) 1 tab PO Q12H PRN anxiety 04/05/22 08/27/22 multivitamin 1 tab PO DAILY 04/05/22 08/27/22 diclofenac sodium 1 % topical gel 2 g topical BID 06/30/22 08/27/22 magnesium oxide 400 mg PO DAILY 06/30/22 08/27/22 naloxone 4 mg/actuation nasal spray 1 spray intranasal Q2M PRN Opioid 06/30/22 08/27/22 Overdose omeprazole 20 mg tablet,delayed 20 mg PO BID 06/30/22 08/27/22 release sodium phosphates 19 gram-7 118 ml [place] DAILY PRN Constipation 06/30/22 08/27/22 gram/118 mL enema (Fleet Enema) cyanocobalamin (vitamin B-12) 1,000 mcg sublingual DAILY 08/27/22 08/27/22 1,000 mcg sublingual tablet nystatin 100,000 unit/gram topical 1 appl topical BID PRN Rash 08/27/22 08/27/22 cream Previous Rx's Medication Instructions Recorded docusate sodium 100 mg capsule 100 mg PO BID 30 days #60 caps 03/26/22 aspirin 81 mg tablet,delayed 81 mg PO DAILY 30 days #30 tabs 04/08/22 release atorvastatin 40 mg tablet 40 mg PO BEDTIME 30 days #30 tabs 04/08/22 oxycodone 5 mg tablet 5 mg PO Q6H PRN Pain, Severe (Pain 04/09/22 Scale 7-10) #20 tabs fluticasone propionate 110 2 puff inhalation BID 30 days #12 04/23/22 mcg/actuation HFA aerosol inhaler grams (Flovent HFA) umeclidinium 62.5 mcg-vilanterol 1 inh inhalation DAILY #60 ea 04/23/22 25 mcg/actuation powdr for inhalation (Anoro Ellipta) cephalexin 500 mg capsule 500 mg PO QID 7 days #28 caps 07/14/23 Allergies Allergy/AdvReac Type Severity Reaction Status Date / Time No Known Allergies Allergy Verified 08/01/23 09:40 [No Known Allergies*] Review of Systems 2 Review of Systems: Constitutional : No Weight loss, No Fever, No Chills, No Night Sweats, No Fatigue, No Malaise ENT/Mouth : No Hearing loss, No Ear Pain, No Nasal Congestion, No Sinus Pain, No Hoarseness, No sore throat, No Rhinorrhea, No Swallowing Difficulty Eyes: No Eye Pain, No Swelling, No Redness, No Foreign Body, No Discharge, No Vision Changes Cardiovascular : No Chest Pain, No SOB, No Dyspnea on Exertion, No Orthopnea, No Edema, No Palpitations Respiratory : Complaining of cough, shortness of breath, wheezing Gastrointestinal : No Nausea, No Vomiting, No Diarrhea, No Constipation, No abdominal Pain, No Hematochezia, No Melena Genitourinary : no irregular bleeding, No Dysuria, No Urinary Frequency, No Hematuria, No Urinary Incontinence, No Urgency, No Flank Pain, No Urinary Flow Changes, No Hesitancy Musculoskeletal : No joint pain, No Myalgias, No Joint Swelling Skin : No Skin Lesions, No rash Neuro : No Weakness, No Numbness, No Paresthesias, No Loss of Consciousness, No Dizziness, No Headache Psych : No Anxiety/Panic, No Depression, No SI/HI/AH/VH, No Social Issues, Heme/Lymph: No Bruising, No Bleeding,No Lymphadenopathy Endocrine : No Polyuria, No Polydipsia, No Temperature Intolerance [facility] Past Medical History Medical History UTI (urinary tract infection) Lactic acidosis Chronic hyponatremia Hypomagnesemia Physical deconditioning TIA (transient ischemic attack) Hyponatremia New onset atrial fibrillation Asthma-COPD overlap syndrome GERD (gastroesophageal reflux disease) Anxiety Depression Diabetes mellitus, type 2 Surgical History History of shoulder surgery History of section Family History Family History Father Cancer Mother No problems noted. Social History Social History (Updated 08/01/23 @ 09:41 by CAREY Watkins) Household Members: Other Housing: Senior Care Do you presently have visiting nurse or other home services: No Unable to assess alcohol history related to: Unable to respond Alcohol intake: never Patient Tobacco Use Status: Never used Tobacco Advance Directives: Yes Advance Directives on File: Yes Advance Directives Date on File: 12/24/21 service: No Current occupational status: unemployed and retired Current occupation: right hand dominant Physical Exam 2 Vital Signs: Vital Signs: Last Vital Signs Temp 98.9 F 10/01/23 15:18 Pulse 100 10/01/23 15:18 Resp 14 10/01/23 15:18 BP 113/68 10/01/23 15:18 Pulse Ox 96 10/01/23 15:18 O2 Del Method Room Air 10/01/23 15:18 BMI result Body Mass Index 35.0 Const: Other: Appearance: Alert. Oriented X3. No acute distress. Eyes: Pupils equal, round and reactive to light. ENT: Pharynx normal. Neck: Normal inspection. Neck supple. No lymph nodes noted. No crepitus CVS: Normal heart rate and rhythm. Pulses normal. Normal S1 and S2 Respiratory: No respiratory distress. Breath sounds normal. No Wheezing. No rales Abdomen: Soft and nontender. No rigidity. No distention. Skin: Skin warm and dry. Normal skin color. Normal skin turgor. Extremities: No lower extremity edema. No Lacerations. No Rash Neuro: Oriented X 3. No motor deficit. No sensory deficit. Moving all extremities. No slurred speech. CN 2 through 12 grossly intact Psych: calm, cooperative, normal affect Medical Decision Making Medical Decision Making [facility] Narrative: -my interpretation of labs: Hematology and chemistry at baseline, LFTs normal, BNP normal, serology positive for influenza = my interpretation of chest x-ray: No pneumonia. -patient's vitals are stable, on room air, blood pressure 113/68, respirations 14, oxygen 96% on room air -it is unclear how long patient has had symptoms, patient states it has been going on anywhere between 2 days up to 10 weeks, given that the time frame is not clear, with a not give Tamiflu. -patient is not using supplemental oxygen Differential Diagnosis Differential Diagnoses: The differential diagnosis associated with the presentation includes (COVID, RSV, pneumonia, viral syndrome) Admission/Observation Consideration of admission/observation: Escalation of care including admission/observation considered (Given patient's history and presentation, admission was considered) Lab Data [facility] Lab Attestation statement: I reviewed the patient's lab results. 10/01/23 15:43 10/01/23 15:43 Labs: Lab Results 10/01/23 Range/Units 15:43 WBC 5.9 (4.8-10.8) X10*3/uL RBC 3.00 L (4.20-5.50) X10*6/uL Hgb 10.6 L (12.0-16.0) g/dl Hct 31.6 L (37.0-47.0) % MCV 105.3 H (80.0-98.0) fL MCH 35.3 H (27.0-33.0) pg MCHC 33.5 (31.0-35.0) g/dl RDW 13.8 (11.0-16.0) % Plt Count 73 L (160-400) X10*3/uL MPV 10.0 (9.4-12.3) fL Immature Gran % (Auto) 1.9 H (0.0-0.4) % Neut % (Auto) 57.3 (45-73) % Lymph % (Auto) 26.1 (20-40) % [place] % (Auto) 10.1 (2-11) % Eos % (Auto) 4.4 H (0-4) % Baso % (Auto) 0.2 (0-2) % Lymph # (Auto) 1.5 (1.2-4.9) X10*3/uL [place] # (Auto) 0.6 (0.1-1.2) X10*3/uL Eos # (Auto) 0.3 (0.0-0.4) X10*3/uL Baso # (Auto) 0.0 (0.0-0.2) X10*3/uL Abs Immat Gran (auto) 0.11 H (0.00-0.03) X10*3/uL Absolute Neuts (auto) 3.4 (2.0-8.3) x10*3/uL Absolute Nucleated RBC 0.000 (0.0-0.012) X10*3/uL Nucleated RBC % (auto) 0.0 (0.0-0.2) /100WBC Sodium 138 (135-145) mmol/L Potassium 4.1 (3.3-5.1) mmol/L Chloride 105 (96-108) mmol/L Carbon Dioxide 24 (22-29) mmol/L Anion Gap 13 (12-20) BUN 19 H (9-16) mg/dL Creatinine 0.85 (0.5-1.4) mg/dL Estim Creat Clear Calc 54.0 Estimated GFR > 60 Random Glucose 184 H (60-115) mg/dL Calcium 9.2 (8.4-10.2) mg/dL Total Bilirubin 0.5 (0.0-1.0) mg/dL AST 18 (5-31) U/L ALT 27 (0-31) U/L Alkaline Phosphatase 97 (39-117) U/L B-Natriuretic Peptide < 10 (<100) pg/mL Total Protein 7.2 (6.5-8.0) g/dL Albumin 4.1 (3.5-5.0) g/dL Influenza Type A (PCR) POSITIVE A (Negative) Influenza Type B (PCR) NEGATIVE (Negative) RSV RNA Qual (PCR) NEGATIVE (Negative) SARS-CoV-2 RNA (RT-PCR) NEGATIVE (Negative) Independent Interpretation I performed an independent interpretation of an: EKG and Plain X-Ray Radiology Impression Discussion of test interpretation with radiology: I have reviewed the radiologist's reading. Radiologist Impression: 1. Clear lungs. 2. Possible new trace right pleural effusion which could be confirmed with lateral radiographs. 3. Unchanged cardiomediastinal silhouette. Independent Historian Clinical information obtained from an independent historian. History obtained from or confirmed by: EMS Critical Care Time Critical Care Time Critical Care Time: Yes Total Critical Care Time: 45 Attestation: I have personally provided critical care time. Time includes review of lab data, radiology results, discussion with consultants, and monitoring for potential decompensation. Intervention performed as documented. Discharge Plan Discharge Clinical Impression: Influenza A Patient Disposition: Home, Self-Care Instructions: Influenza (ED) Additional Instructions: Please follow-up with your primary care physician tomorrow. If you have any worsening or new symptoms, please return to the emergency room or call 911 Prescriptions: No Action buspirone 15 mg tablet 15 mg PO BID duloxetine 60 mg capsule,delayed release(DR/EC) 60 mg PO BID thiamine HCl (vitamin B1) 100 mg Tablet 100 mg PO DAILY acetaminophen 500 mg Tablet 1,000 mg PO Q8H PRN (Reason: Pain) pantoprazole 40 mg Tablet,Delayed Release (Dr/Ec) 40 mg PO DAILY@0630 Icy Hot 30-10 % Cream 1 appl TOPICAL TID PRN (Reason: Muscle Pain) Rx Instructions: to back albuterol sulfate 90 mcg/actuation HFA aerosol inhaler 2 puff inhalation Q6H PRN (Reason: shortness of breath or wheezing) fexofenadine 60 mg Tablet 60 mg PO DAILY loperamide 2 mg Tablet 2 mg PO Q6H PRN (Reason: Loose Stool) ferrous sulfate 325 mg (65 mg iron) tablet 1 tab PO TID promethazine 25 mg Tablet 25 mg PO QID PRN (Reason: Allergic Symptoms) aripiprazole 2 mg Tablet 4 mg PO DAILY docusate sodium 100 mg Capsule 100 mg PO BID 30 Days Qty: 60 0RF lorazepam [Ativan] 0.5 mg tablet 1 tab PO Q12H PRN (Reason: anxiety) multivitamin Tablet 1 tab PO DAILY cholecalciferol (vitamin D3) 125 mcg (5,000 unit) Tablet 125 mcg PO DAILY atorvastatin 40 mg Tablet 40 mg PO BEDTIME 30 Days Qty: 30 0RF aspirin 81 mg Tablet,Delayed Release (Dr/Ec) 81 mg PO DAILY 30 Days Qty: 30 0RF oxycodone 5 mg Tablet 5 mg PO Q6H PRN (Reason: Pain, Severe (Pain Scale 7-10)) Qty: 20 0RF Rx Instructions: Partial Fill upon patient request. Fleet Enema 19-7 gram/118 mL Enema 118 ml OH DAILY PRN (Reason: Constipation) Rx Instructions: use if no BM for 8 hrs after bisacodyl suppository diclofenac sodium 1 % Gel 2 g TOPICAL BID Protocol: Apply to: Apply to: SHOULDERS Rx Instructions: apply bilaterally to shoulders omeprazole 20 mg Tablet,Delayed Release (Dr/Ec) 20 mg PO BID naloxone 4 mg/actuation [place],Non-Aerosol 1 spray INTRANASAL Q2M PRN (Reason: Opioid Overdose) Rx Instructions: spray 1 dose into ONE nostril; alternate nostrils w each dose until help arrives magnesium oxide 400 mg magnesium Tablet 400 mg PO DAILY nystatin 100,000 unit/gram Cream 1 appl TOPICAL BID PRN (Reason: Rash) cyanocobalamin (vitamin B-12) 1,000 mcg Tablet, Sublingual 1,000 mcg SUBLINGUAL DAILY cephalexin 500 mg capsule 500 mg PO QID 7 Days Qty: 28 0RF pramipexole 0.125 mg tablet 0.125 mg PO BID Anoro Ellipta 62.5-25 mcg/actuation blister with device 1 inh inhalation DAILY Qty: 60 11RF fluticasone propionate [Flovent HFA] 110 mcg/actuation HFA aerosol inhaler 2 puff inhalation BID 30 Days Qty: 12 11RF
[2023-10-01 16:13] LABS: Alanine Aminotransferase 27 U/L (0-31); Albumin Level 4.1 g/dL (3.5-5.0); Alkaline Phosphatase 97 U/L (39-117); Anion Gap 13 (12-20); Aspartate Amino Transferase 18 U/L (5-31); Bilirubin Total 0.5 mg/dL (0.0-1.0); Blood Urea Nitrogen 19 mg/dL (9-16); Calcium 9.2 mg/dL (8.4-10.2); Carbon Dioxide 24 mmol/L (22-29); Chloride 105 mmol/L (96-108); Estimated Glomerular Filt Rate > 60; Glucose Random 184 mg/dL (60-115); Potassium 4.1 mmol/L (3.3-5.1); Sodium 138 mmol/L (135-145); Total Protein 7.2 g/dL (6.5-8.0)
[2023-10-01 16:47] LABS: Influenza A PCR POSITIVE (Negative); Influenza B PCR NEGATIVE (Negative); Resp Syncy Virus RNA Qual PCR NEGATIVE (Negative); SARS COV2 PCR INHOUSE NEGATIVE (Negative)
[2023-10-01 17:36] LABS: B Type Natriuretic Peptide < 10 pg/mL (<100)
[2023-10-01 17:49] VITALS: BP 110/62; PULSE 89; RESP 14; O2SAT 98
--- NOTE | 2023-10-01 17:51 | PC.NURSE ---
patient presented for not feeling well over the past 2 weeks from [facility]. IV established, labs/xray ordered. patient has been resting quietly in room, patient asleep at this time. call brush is within reach. awaiting dispo from provider at this time.
[2023-10-01 20:00] VITALS: BP 99/60; PULSE 100; RESP 20; TEMP 37.4; O2SAT 93
[2023-10-01 20:10] VITALS: BP 101/61; PULSE 98; RESP 20; TEMP 37.3; O2SAT 95
== END 2023-10-01 20:12 | disposition home or self-care (01) ==
PROVIDERS: Emergency Provider Emergency Medicine
DX: J10.1 Influenza due to other identified influenza virus with other respiratory manifestations (principal); E11.9 Type 2 diabetes mellitus without complications; Z11.52 Encounter for screening for COVID-19; Z20.828 Contact with and (suspected) exposure to other viral communicable diseases
CPT/HCPCS: 0241U; 71045; 80053; 83880; 85025; 99283; 99284

== ENCOUNTER 2024-04-13 13:19 | Outpatient (AMB) | payer MEDICARE, MEDICAID, SELFPAY ==
[2024-04-13 13:26] VITALS: BP 134/80; PULSE 71; O2SAT 98; BMI 33.0
--- NOTE | 2024-04-13 13:26 | A.OFFVIS_ITS ---
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 Since we last spoke she has had multiple evaluations in the ER for worsening shortness of breath. The last time she had was yesterday and she was given a prednisone taper. She is is the prednisone has not been that effective for her. She was supposed to undergo blood work but she had not done so. She was also supposed to have a methacholine challenge but she did not have it. In the meantime we did look at her x-ray that she had yesterday demonstratig areas of haziness suggesting some pneumonitis. Therefore I did go back and look at her radiology from the past and demonstrated the back in September 2019 she did have areas of ground-glass opacities on her CT scan which is very concerning. She also has evidence of bronchitis. Therefore the ongoing process she has is more intrinsic. She denies any exposure to any mold or any construction a demolition in the home. She has not had any proper allergy testing at this time. She has not responding to the current respiratory inhalers. Therefore, I will start her nebulized therapy to see if we can get more optimize respiratory therapy. the patient should also have a repeat CT scan to assess the pneumonitis. If the areas are still affected than bronchoscopy with biopsies may be warranted. 05/09/2020 the patient is here for pulmonary follow-up visit. She continues to have a hard time with her asthma. Appears to have significant shortness of breath and cannot be off her the prednisone. She has multiple evaluations in the ED and also here in Pulmonary in addition to her primary care provider. Her asthma is uncontrolled. It is likely she has significant allergy triggers based on her blood work demonstrating significant eosinophilia and also an elevated IgE level. Therefore she does have and allergic phenotype. Based on a chronic dose of prednisone the patient will be a good candidate for biologic therapy at this time. Also, she has significant exposures specially which is living with a lot of dust and fumes and cigarette smoke. she is actively trying to relocate as she knows this places not help good for her health. Currently she is taking 40 mg of prednisone I will give her additional prednisone she can taper down. But I do believe at this point she does qualify for biologic therapy. will try to get her on Nucala at this time. Otherwise her blood work was pretty unremarkable for any other inflammatory connective disease process. No evidence of any vasculitis either. Therefore will continue treating her asthma and then follow up with her pneumonitis. holding off on bronchoscopy at this time. 05/26/2020 the patient is here for pulmonary follow-up visit. He still having issues with her shortness of breath and wheezing. She was finally approved for Nucala. Going to schedule as soon as possible. She is still on prednisone taking 30 mg with a taper. In addition to that she is using the Perforomist and the guest tonight. The performance is extremely expensive more than 100 that is a a month. This is not financially feasible for her. Will make sure to switch it once she runs out of the medication. I am hopeful that with the biologic therapy she will be able to cut down on some of the prednisone. 06/27/2020 the the patient is here for pulmonary follow-up visit. She did start the Nucala injections she does feel like it did help. It is too early to tell if she is going to respond well to the therapy. In the meantime she continues with the nebulized therapy. She does use it twice a day. Currently she is complaining of chest congestion primarily in the neck throat area and also the upper chest area. Moderate severity. She does expectorate phlegm. She denies any fevers or chills or any exposure to anybody with the COVID-19 infection. At this point she is not having any significant wheezing. So therefore will hold off on any cortical steroids. The patient will benefit from treatment for tracheobronchitis at this time. In the meantime will try to optimize her respiratory therapy also adding a long-acting muscarinic antagonist, Incruse. 08/03/2020 the patient is here for pulmonary follow-up visit. She has had another course of prednisone since we last spoke. She continues to have intermittent shortness of breath and wheezing. She has been on the Nucala injections now for about 4 months. She has seen some improvement. She continues on respiratory medications. He seems like she is taking too much medication actually. She is currently on Brovana and also on the Trelegy inhaler. For this point explained to the patient that she has to be careful not to over does answer medications. It appears that she is tolerating the Trelegy and she has good adherence with it. Therefore will have her stop the Brovana. Patient can continue using the budesonide via nebulizer in addition to the Trelegy inhaler. We also spoke to the patient that with Mover she should be going to doctors at [facility]. I did remind her to call the [facility] if she wants to continue getting care here at [facility]. 08/07/2021 the patient is here for a pulmonary follow-up visit. The patient has been lost to follow-up. she recently moved to a different apartment. She states that the moves was difficult but now that she has settled her breathing has gotten significantly better. She does feel that a big component to her respiratory symptoms was the fact that her apartment had a lot of allergens. The new apartment does have rugs but she does try backing frequent. In the meantime the patient stopped using the Trelegy. The only inhaler that she has available at this time that I am aware of is her short-acting beta agonist. She also has continue with the new calling injections. At this point based on the fact that she is doing well on her respiratory symptoms are stable will go ahead and start her on Flovent to see if we can provide her some maintenance therapy. Will assess how often she is having to use her rescue inhaler. But I am hoping that she continues to do well with the new environment. Will reassess in 3 months. The patient needs to undergo pulmonary function studies. At which if she still doing well we can always consider stopping biologic therapy. 04/23/2022 the patient is here for a pulmonary follow-up visit. She appears to be compensated further. during the last visit she was living in a different apartment in her respiratory status improved dramatically due to the change in the environment. Now however, she is at a subacute long-term her. Time. She feels that her breathing is much worse. We have switched over from Trelegy to Flovent inhaler but she states that the only inhaler she is using her albuterol rescue inhaler. The patient needs to be placed back in the Flovent and also should be start her on Anoro in order to provide with long-acting bronchodilation. She had been on biologic therapy in the past but will hold off at this time. When she came into the office she unfortunately was soiled and the patient was very in [facility]'s about PAP. We did reach out to her pace program in order for them to be notified and to assist with that issue. This point will maximize her respiratory therapy her follow-up in 3 months and assess her response to therapy. 04/13/2024 the patient is here for pulmonary follow-up visit. She has been awhile since she was here. Apparently she had a stroke and she was not. The patient is struggling with her breathing. She has significant chest congestion. Moderate severity. Also complaining of dyspnea on exertion. Moderate sever ity. She does have wheezing. She has been on multiple inhalers. Although this point seems like she is also only using Flovent and also Combivent and has a Ventolin rescue inhaler. End the visit today she does have significant congestion and rhonchi and wheezing on examination. We did try to get a sputum culture but we went able to get a sputum sample. Which she did have a chest x- ray back in 10/01/2023 which we personally reviewed without any significant findings except for blunting of the recess. In addition to that the patient has not had much. We will go ahead and optimize respiratory therapy were placing her on Trelegy. I did instruct her how to use it. She has used similar inhalers in the past as well. I do believe that azithromycin 3 times a week to treat her chronic bronchitis will be effective. Will also have her recheck a blood work including eosinophil level since she is at risk for eosinophilic asthma as she responded in the past positively to Nucala. But at this point will have her start the azithromycin 3 times a week to treat her for the chronic bronchitis and also optimize her respiratory therapy. She will have an EKG next week and also should have a repeat chest x-ray. She will continue the medicines until I see her next time in a couple months. If she has any worsening symptoms she will call. Otherwise will follow-up then. [facility] Medical History (Updated 04/13/24 @ 13:50 by Cholo Melgar MD) Asthma UTI (urinary tract infection) Lactic acidosis Chronic hyponatremia Hypomagnesemia Physical deconditioning TIA (transient ischemic attack) Hyponatremia New onset atrial fibrillation Asthma-COPD overlap syndrome GERD (gastroesophageal reflux disease) Anxiety Depression Diabetes mellitus, type 2 Surgical History History of shoulder surgery History of section Family History Father Cancer Mother No problems noted. Social History (Updated 08/01/23 @ 09:41 by CAREY Watkins) Household Members: Other Housing: [facility] Do you presently have visiting nurse or other home services: No Unable to assess alcohol history related to: Unable to respond Alcohol intake: never Patient Tobacco Use Status: Never used Tobacco Advance Directives Date on File: 12/24/21 service: No Current occupational status: unemployed and retired Current occupation: right hand dominant Review of Systems Const Denies night sweats and Reports weight loss ENT Denies change in voice, Denies lip swelling, Denies mouth pain, Reports nasal congestion, Reports nasal discharge and Denies tongue swelling Card Denies chest pain and Reports dyspnea on exertion Resp Reports chest congestion, Reports cough, Reports dyspnea on exertion and Reports wheezing GI Denies abdominal pain Musc Denies no additional complaints Neuro Denies Neuro-related abnormal movements Psych Denies no additional complaints Abner/Lymph Denies easy bleeding and Denies lymphadenopathy Aller/Immun Denies lip swelling, Denies tongue swelling and Reports wheezing Physical Exam Vital Signs: Last Vital Signs Pulse 71 04/13/24 13:26 BP 134/80 04/13/24 13:26 Pulse Ox 98 04/13/24 13:26 Oxygen Delivery Method Room Air 04/13/24 13:26 BMI result Body Mass Index 33.0 Const General: alert Neck Neck: Yes normal visual inspection, Yes full ROM and Yes no lymphadenopathy Chest Chest palpation & inspection: normal inspection of the chest Resp Effort & Inspection: normal respiratory effort Auscultation: rhonchi, diminished lung sounds and no bronchovesicular breath sounds Cardio Rate: regular rate Rhythm: regular rhythm Heart sounds: S1 normal heart sound present and S2 normal heart sound present GI Palpation (GI): Soft to palpation and nontender Auscultation: normal bowel sounds Skin General skin exam: rashes and/or lesions noted Assessment & Plan Assessment & Plan (1) Asthma: Code(s): J45.909 - Unspecified asthma, uncomplicated Category: Medical Qualifiers: Asthma complication type: with acute exacerbation Asthma persistence: persistent Asthma severity: moderate Qualified Code(s): J45.41 - Moderate p ersistent asthma with (acute) exacerbation (2) GERD (gastroesophageal reflux disease): Code(s): K21.9 - Gastro-esophageal reflux disease without esophagitis Category: Medical Qualifiers: Esophagitis presence: without esophagitis Qualified Code(s): K21.9 - Gastro-esophageal reflux disease without esophagitis (3) Asthma-COPD overlap syndrome: Code(s): J44.9 - Chronic obstructive pulmonary disease, unspecified Category: Medical Plan start Trelegy 200 stop flovent continue short-acting beta agonist as needed bloodwork start Azithromycin MWF CXR EKG reflux diet F/U 2-3 months Orders: Orders XR chest 2V Today J45.909 - Unspecified asthma, uncomplicated Immunoglobulin E Today J45.909 - Unspecified asthma, uncomplicated Complete Blood Count Auto Diff Today J45.909 - Unspecified asthma, uncomplicated Basic Metabolic Panel Today J45.909 - Unspecified asthma, uncomplicated Immunoglobulins,IgG IgA IgM Today J45.909 - Unspecified asthma, uncomplicated ECG 12 lead EKG Today J44.9 - Chronic obstructive pulmonary disease, unspe cified, J45.909 - Unspecified asthma, uncomplicated Erythrocyte Sedimentation Rate Today J45.909 - Unspecified asthma, uncomplicated Medications: New azithromycin Take 1 tablet on Friday/Friday/Friday 250 mg PO 3XW 12 tabs 6RF 28 days K21.9 - Gastro-esophageal reflux disease without esophagitis [id number] 200-62.5-25 mcg (Trelegy Ellipta) 1 inh inhalation DAILY 60 ea 12RF 30 days Changed From albuterol sulfate 90 mcg/actuation 2 puffs inhalation Q6H PRN shortness of breath or wheezing To albuterol sulfate 90 mcg/actuation 2 puffs inhalation Q6H PRN 8.5 grams 11RF shortness of breath or wheezing 30 days Coding Level of Care Code Est Pt Level 4 (21658) Diagnoses Severe persistent asthma without complication J45.41 Asthma complication type: with acute exacerbation Asthma persistence: persistent Asthma severity: moderate Gastroesophageal reflux disease without esophagitis K21.9 Esophagitis presence: without esophagitis Asthma-COPD overlap syndrome J44.9 Time Spent (min) 20
== END 2024-04-13 13:57 | disposition home or self-care (01) ==
PROVIDERS: PCP Family Medicine; Referring Provider Family Medicine; Visit Provider Hospitalist
DX: J45.41 Moderate persistent asthma with (acute) exacerbation (principal); K21.9 Gastro-esophageal reflux disease without esophagitis; J44.9 Chronic obstructive pulmonary disease, unspecified
CPT/HCPCS: 99214

== ENCOUNTER 2024-04-13 13:19 | Outpatient (REF) | payer MEDICARE, MEDICAID, SELFPAY ==
--- NOTE | ~2024-04-13 | XR_ITS ---
EXAMINATION: XR CHEST CLINICAL INFORMATION: J45.909 - Unspecified asthma, uncomplicated COMPARISON: 10/01/2023, 08/27/2022. TECHNIQUE: 2 views of the chest were obtained. FINDINGS: The cardiac, hilar, and mediastinal contours are normal. Aorta is mildly calcified and uncoiled. Lungs are mildly hyperaerated, however clear bilaterally. There is no pneumothorax or pleural effusion. 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 There is a solitary screws seen in the region of the glenohumeral joint recess. Significant arthritis right shoulder joint. Mild scoliosis and spondylosis throughout the spine. Exaggerated kyphosis. XR/XR chest 2V IMPRESSION: Mild pulmonary hyperaeration. No active pulmonary disease. Electronically signed by: Griffin George MD 06/20/2024 03:56 PM [facility]
--- NOTE | 2024-04-13 14:09 | ECG_ITS ---
Test Reason : COPD Blood Pressure : / mmHG Vent. Rate : 077 BPM Atrial Rate : 077 BPM P-R Int : 150 ms QRS Dur : 086 ms QT Int : 388 ms P-R-T Axes : 060 -03 036 degrees QTc Int : 439 ms Normal sinus rhythm Normal ECG When compared with ECG of 27-AUG-2022 01:47, No significant change was found Referred By: Cholo Melgar Electronically Signed By:SANG CISSE
[2024-04-13 14:29] LABS: MANUAL DIFF FLAG NO
[2024-04-13 14:38] LABS: Basophils Percent Auto 0.2 % (0-2); Eosinophils Absolute Auto 0.7 X10*3/uL (0.0-0.4); Hematocrit 31.4 % (37.0-47.0); Hemoglobin 10.8 g/dl (12.0-16.0); Imm Gran Abs Auto 0.03 X10*3/uL (0.00-0.03); Imm Gran Pct Auto 0.7 % (0.0-0.4); Lymphocytes Absolute Auto 1.6 X10*3/uL (1.2-4.9); Lymphocytes Percent Auto 38.1 % (20-40); Mean Corpuscular HGB Conc 34.4 g/dl (31.0-35.0); Mean Corpuscular Hemoglobin 36.6 pg (27.0-33.0); Mean Corpuscular Volume 106.4 fL (80.0-98.0); Mean Platelet Volume 9.7 fL (9.4-12.3); Monocytes Absolute Auto 0.3 X10*3/uL (0.1-1.2); Monocytes Percent Auto 8.4 % (2-11); Neutrophils Absolute Auto 1.5 x10*3/uL (2.0-8.3); Neutrophils Percent Auto 35.6 % (45-73); Platelet Count 108 X10*3/uL (160-400); Red Blood Count 2.95 X10*6/uL (4.20-5.50); Red Cell Distribution Width 14.4 % (11.0-16.0); White Blood Count 4.1 X10*3/uL (4.8-10.8)
[2024-04-13 14:59] LABS: Anion Gap 12 (12-20); Blood Urea Nitrogen 14 mg/dL (9-16); Calcium 9.7 mg/dL (8.4-10.2); Carbon Dioxide 22 mmol/L (22-29); Chloride 109 mmol/L (96-108); Estimated Glomerular Filt Rate > 60; Glucose Random 113 mg/dL (60-115); Potassium 4.4 mmol/L (3.3-5.1); Sodium 139 mmol/L (135-145)
[2024-04-13 15:17] LABS: Erythrocyte Sedimentation Rate 33 MM/HR (0-20)
[2024-04-14 12:03] LABS: IgA 155 mg/dL (70-320); IgG 998 mg/dL (600-1540); IgM 192 mg/dL (50-300)
[2024-04-17 14:09] LABS: Immunoglobulin E 6934 kU/L (<OR=114)
== END 2024-04-13 13:20 | disposition home or self-care (01) ==
LOC: HO.XRAY 13:19
PROVIDERS: PCP Family Medicine; Referring Provider Family Medicine; Visit Provider Hospitalist
DX: J45.41 Moderate persistent asthma with (acute) exacerbation (principal); J44.9 Chronic obstructive pulmonary disease, unspecified; K21.9 Gastro-esophageal reflux disease without esophagitis; Z79.899 Other long term (current) drug therapy
CPT/HCPCS: 36415; 71046; 80048; 82784; 82785; 85025; 85652; 93005; 99212

== ENCOUNTER → 2024-04-13 14:31 | Outpatient (BNV) | payer MEDICARE, MEDICAID, SELFPAY | PROVIDERS: PCP Family Medicine; Referring Provider Family Medicine; Visit Provider Radiology Diagnostic Radiology | DX: J45.909 Unspecified asthma, uncomplicated (principal) | CPT/HCPCS: 71046 ==